=== PATIENT | female | born 1965 | race Caucasian/White ===

== ENCOUNTER 2023-02-13 11:41 | Outpatient (OUT) | payer MEDICARE, MEDICAID, SELFPAY ==
[2023-02-13 12:07] LABS: Basophils Percent Auto 0.3 % (0.2-2.0); Eosinophils Absolute Auto 0.1 10^3/uL (0.0-0.7); Eosinophils Percent Auto 1.5 % (0.9-7.0); Hematocrit 45.5 % (36.0-48.0); Hemoglobin 14.8 g/dL (12.0-16.0); Immature Granulocytes Abs Auto 0.05 10^3/uL (0.00-0.03); Immature Granulocytes Pct Auto 0.5 % (0.0-0.5); Lymphocytes Absolute Auto 1.5 10^3/uL (1.2-3.8); Lymphocytes Percent Auto 16.1 % (20.5-60.0); Mean Corpuscular HGB Conc 32.5 g/dL (29.9-35.2); Mean Corpuscular Hemoglobin 28.9 pg (26.7-34.0); Mean Corpuscular Volume 88.9 fL (81.0-99.0); Mean Platelet Volume 9.7 fL (9.5-13.5); Monocytes Absolute Auto 0.6 10^3/uL (0.3-0.8); Monocytes Percent Auto 6.7 % (1.7-12.0); Neutrophils Absolute Auto 7.1 10^3/uL (1.4-6.5); Neutrophils Percent Auto 74.9 % (43.0-75.0); Platelet Count 284 10^3/uL (150-450); Red Blood Count 5.12 10^6/uL (4.20-5.40); Red Cell Distribution Width 14.4 % (11.0-15.0); White Blood Count 9.4 10^3/uL (4.0-11.0)
[2023-02-13 12:37] LABS: Erythrocyte Sedimentation Rate 67 mm/hr (<=30)
[2023-02-13 12:37] LABS: Alanine Aminotransferase 21 U/L (14-59); Albumin Globulin Ratio 0.7; Albumin Level 2.9 g/dL (3.4-5.0); Alkaline Phosphatase 75 U/L (46-116); Anion Gap 9.8; Aspartate Amino Transferase 19 U/L (15-37); BUN Creatinine Ratio 21.3; Bilirubin Total 0.2 mg/dL (0.2-1.0); Calcium 9.4 mg/dL (8.5-10.1); Carbon Dioxide 30.4 mmol/L (21.0-32.0); Chloride 102 mmol/L (98-107); Estimated GFR (African America >60 (>=60); Estimated GFR (Non-African Ame >60 (>=60); Globulin 4.4 g/dL; Glucose 145 mg/dL (74-106); Potassium 4.2 mmol/L (3.5-5.1); Sodium 138 mmol/L (136-145); Total Protein 7.3 g/dL (6.4-8.2)
== END 2023-02-13 11:42 | disposition home or self-care (01) ==
LOC: LAB 11:41
PROVIDERS: PCP Family Medicine
DX: M05.79 Rheumatoid arthritis with rheumatoid factor of multiple sites without organ or systems involvement (principal); M15.0 Primary generalized (osteo)arthritis; Z79.899 Other long term (current) drug therapy
CPT/HCPCS: 36415; 80053; 85025; 85652

== ENCOUNTER 2023-02-15 13:55 | Outpatient (OUT) | payer MEDICARE, MEDICAID, SELFPAY | END 2023-02-15 13:56 | disposition home or self-care (01) | LOC: WC 13:55 | PROVIDERS: PCP Family Medicine; Visit Provider Physician Assistant | DX: L97.312 Non-pressure chronic ulcer of right ankle with fat layer exposed (principal); L97.822 Non-pressure chronic ulcer of other part of left lower leg with fat layer exposed; L88 Pyoderma gangrenosum | CPT/HCPCS: A6213; G0463 ==

== ENCOUNTER 2023-03-12 15:20 | Outpatient (OUT) | payer MEDICARE, MEDICAID, SELFPAY | END 2023-03-12 15:21 | disposition home or self-care (01) | LOC: WC 15:20 | PROVIDERS: PCP Family Medicine; Visit Provider Physician Assistant | DX: L97.312 Non-pressure chronic ulcer of right ankle with fat layer exposed (principal) | CPT/HCPCS: A6213; G0463 ==

== ENCOUNTER 2023-06-04 15:13 | Outpatient (OUT) | payer MEDICARE, MEDICAID, SELFPAY ==
--- NOTE | 2023-06-04 15:16 | CT_ITS ---
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 TECHNIQUE: Multi-planar CT images were obtained without and/or with IV contrast as indicated by examination type. Axial, Coronal, and Sagittal images. Dose reduction techniques were achieved by using automated exposure control and/or adjustment of mA and/or kV according to patient size and/or use of iterative reconstruction technique. FINDINGS: LUNGS: Regular, thick-walled, spiculated cavitary lesion within posterior medial right lung base approximately 3.0 x 1.9 cm and extending 7.2 cm cephalad caudad. Spiculated cavitary lesion with surrounding soft tissue stranding within posterior lateral left lung base approximately 6.1 x 3.9 x 5.2 cm. PLEURA: No mass, effusion, or pneumothorax. VASCULATURE: No abnormality. SIS: No mass or adenopathy. MEDIASTINUM: No mass or adenopathy. CARDIAC: Atherosclerotic coronary artery disease. No pericardial effusion. AORTA: No aneurysm or dissection. CHEST WALL: No mass or axillary adenopathy. BONES: No bone lesion or fracture. LIMITED ABDOMEN: No suspicious findings Limited images of the upper abdomen. OTHER: Negative. CT/CT chest wo con IMPRESSION: 1. Nonspecific thick-walled cavitary lesions with surrounding stranding within posterior medial lung bases favoring infectious/inflammatory etiology over neoplasm. No prior studies for comparison. Consider treatment and follow-up CT chest with IV contrast in 1 month to document change versus stability. Electronically authenticated by: MERYL RUBY Date: 06/05/2023 08:00
== END 2023-06-04 15:14 | disposition home or self-care (01) ==
LOC: CT 15:13
PROVIDERS: Visit Provider Internal Medicine
DX: M05.10 Rheumatoid lung disease with rheumatoid arthritis of unspecified site (principal); M05.79 Rheumatoid arthritis with rheumatoid factor of multiple sites without organ or systems involvement; M15.0 Primary generalized (osteo)arthritis; Z79.899 Other long term (current) drug therapy
CPT/HCPCS: 71250

== ENCOUNTER 2023-06-28 12:13 | Outpatient (OUT) | payer MEDICARE, MEDICAID, SELFPAY ==
[2023-06-28 12:47] LABS: Basophils Percent Auto 0.3 % (0.2-2.0); Eosinophils Absolute Auto 0.1 10^3/uL (0.0-0.7); Eosinophils Percent Auto 1.1 % (0.9-7.0); Hematocrit 45.5 % (36.0-48.0); Hemoglobin 14.3 g/dL (12.0-16.0); Immature Granulocytes Abs Auto 0.07 10^3/uL (0.00-0.03); Immature Granulocytes Pct Auto 0.6 % (0.0-0.5); Lymphocytes Absolute Auto 1.8 10^3/uL (1.2-3.8); Lymphocytes Percent Auto 15.9 % (20.5-60.0); Mean Corpuscular HGB Conc 31.4 g/dL (29.9-35.2); Mean Corpuscular Hemoglobin 28.3 pg (26.7-34.0); Mean Corpuscular Volume 90.1 fL (81.0-99.0); Mean Platelet Volume 9.8 fL (9.5-13.5); Monocytes Absolute Auto 0.6 10^3/uL (0.3-0.8); Monocytes Percent Auto 5.3 % (1.7-12.0); Neutrophils Absolute Auto 8.8 10^3/uL (1.4-6.5); Neutrophils Percent Auto 76.8 % (43.0-75.0); Platelet Count 333 10^3/uL (150-450); Red Blood Count 5.05 10^6/uL (4.20-5.40); Red Cell Distribution Width 14.4 % (11.0-15.0); White Blood Count 11.5 10^3/uL (4.0-11.0)
[2023-06-28 12:53] LABS: Alanine Aminotransferase 22 U/L (14-59); Albumin Globulin Ratio 0.6; Albumin Level 2.9 g/dL (3.4-5.0); Alkaline Phosphatase 66 U/L (46-116); Aspartate Amino Transferase 11 U/L (15-37); BUN Creatinine Ratio 25.6; Bilirubin Total 0.2 mg/dL (0.2-1.0); Calcium 9.2 mg/dL (8.5-10.1); Carbon Dioxide 36.1 mmol/L (21.0-32.0); Chloride 99 mmol/L (98-107); Estimated GFR (African America >60 (>=60); Estimated GFR (Non-African Ame >60 (>=60); Globulin 4.5 g/dL; Glucose 155 mg/dL (74-106); Potassium 4.1 mmol/L (3.5-5.1); Sodium 137 mmol/L (136-145); Total Protein 7.4 g/dL (6.4-8.2); Uric Acid 5.5 mg/dL (2.6-6.0)
[2023-06-28 13:41] LABS: Erythrocyte Sedimentation Rate 92 mm/hr (<=30)
== END 2023-06-28 12:14 | disposition home or self-care (01) ==
LOC: LAB 12:13
PROVIDERS: PCP Family Medicine; Visit Provider Registered Nurse
DX: M05.79 Rheumatoid arthritis with rheumatoid factor of multiple sites without organ or systems involvement (principal); M15.0 Primary generalized (osteo)arthritis; Z79.899 Other long term (current) drug therapy; M10.09 Idiopathic gout, multiple sites
CPT/HCPCS: 36415; 80053; 84550; 85025; 85652

== ENCOUNTER 2023-07-12 09:05 | Outpatient (OUT) | payer MEDICARE, MEDICAID, SELFPAY ==
--- OUTSIDE RECORDS SUMMARY | 2023-07-12 09:11 | XMS_ITS | CCD ---
Author Name Unknown Address [address] [place] [address] Organization [facility] Care Team Providers Care Lining Sewer Name Role Phone [place] Procedure Practitioner Unavailab JEREMIAS Everett Primary Care Unavailable JOVANI GOLD Surgeon Unavailable TED VALDIVIA Attending Unavailable TED VALDIVIA Admitting Unavailable SELF, REFERRED Referring Unavailable Jeremias DAVISON Primary Care Physician [phone] Albin Bruno Unavailable MD Shay Baldwin Primary Care Provider [phone] MD Shay Baldwin Attending Provider DR JEREMIAS DAVISON Primary Care Unavailable SUNSHINE BRYSON Attending Unavailable SUNSHINE BRYSON Admitting Unavailable SAMAN, DR JEREMIAS Moralez Primary Care Unavailable SUNSHINE BRYSON Attending Unavailable SUNSHINE BRYSON Admitting Unavailable SAMAN, DR JEREMIAS Moralez Primary Care Unavailable SUNSHINE BRYSON Attending Unavailable SUNSHINE BRYSON Admitting Unavailable SAMAN, DR JEREMIAS Moralez Primary Care Unavailable PEPE RUBIO Attending Unavaila PEPE Vidal Admitting Unavaila dinah DAVISON, DR JEREMIAS Moralez Primary Care Unavailable SUNSHINE BRYSON Attending Unavailable SUNSHINE BRYSON Admitting Unavailable SAMAN, DR JEREMIAS Moralez Primary Care Unavailable SUNSHINE BRYSON Attending Unavailable SUNSHINE BRYSON Admitting Unavailable SAMAN, DR JEREMIAS Moralez Primary Care Unavailable SUNSHINE BRYSON Attending Unavailable KAREN, SUNSHINE Vidal Admitting Unavailable SAMAN, DR JEREMIAS Moralez Primary Care Unavailable PRAVIN HODGES Attending Unavailable PRAVIN HODGES Admitting Unavailable SAMAN, DR JEREMIAS Moralez Primary Care Unavailable SUNSHINE BRYSON Attending Unavailable SUNSHINE BRYSON Admitting Unavailable MISC, DR ALVAREZ Consulting Unavailable SAMAN, DR JEREMIAS Moralez Primary Care Unavailable HAL, DR PERLA Attending Unavailable HAL, DR PERLA Admitting Unavailable SAMAN, DR JEREMIAS Moralez Primary Care Unavailable LETI, NEEL Attending Unavailable NEEL YADAV Admitting Unavailable SAMAN, DR JEREMIAS Moralez Primary Care Unavailable KAREN, SUNSHINE Vidal Attending Unavailable HIGHLERNIE, SUNSHINE Vidal Admitting Unavailable SAMAN, DR JEREMIAS Moralez Primary Care Unavailable HIGHLERNIE, SUNSHINE Vidal Attending Unavailable HIGHLERNIE, SUNSHINE Vidal Admitting Unavailable SAMAN, DR JEREMIAS Moralez Primary Care Unavailable HIGHLANDER, SUNSHINE Vidal Attending Unavailable HIGHLANDER, SUNSHINE Vidal Admitting Unavailable SAMAN, Jeremias Moralez Attending Unavailable Preethi, Ann Worrell Attending Unavailable Preethi, Ann Worrell Attending Unavailable SAMAN, Jeremias Moralez Admitting Unavailable SAMAN, Jeremias Moralez Attending Unavailable Allergies Allergy Classification Reported Allergen(s) Allergy Type Date of Onset Reaction(s) Facility (5 sources) Amoxicillin / Clavulanate; Translations: [AUGMENTIN] Drug Allergy 09-05-19 19 Illness (finding) [facility] Repository (4 sources) Calcium Channel Blockers; Translations: [calcium channel blockers] Drug allergy (disorder) 05-27-20 18 tachycardia [facility] Repository (4 sources) Contrast media; Translations: [red dye] Food allergy (disorder) 01-20-20 17 insomnia [facility] Repository (1 source) dilTIAZem; Translations: [DILTIAZEM HCL] Drug Allergy 09-12-19 19 [facility] Repository (4 sources) Latex; Translations: [LATEX] Propensity to adverse reactions (disorder) 05-31-20 17 Unknown [facility] Repository (4 sources) Sulfamethoxazole / Trimethoprim; Translations: [Bactrim] Drug Allergy 05-08-20 18 [facility] Repository (4 sources) Vancomycin; Translations: [vancomycin] Drug Allergy 05-08-20 18 [facility] Repository (4 sources) Sulfamethoxazole / Trimethoprim; Translations: [sulfamethoxazole-t rimethoprim] Drug Allergy bloody stool, Unknown [facility] Other (4 sources) Vancomycin; Translations: [vancomycin] Drug Allergy itching, Unknown [facility] Other (2 sources) Amoxicillin / Clavulanate Drug Allergy Unknown [facility] Other (2 sources) Ciprofloxacin Drug Allergy Unknown [facility] Other (3 sources) Codeine; Translations: [codeine] Drug Allergy Unknown [facility] Repository (2 sources) levoFLOXacin Drug Allergy Unknown [employer] [facility] [employer] Other (2 sources) Calcium Channel Antagonists Drug allergy Unknown [facility] Other (2 sources) cefdinir Drug Allergy 08-21-19 22 [facility] Repository (2 sources) Ciprofloxacin Drug Allergy [facility] Repository (1 source) Codeine Drug Allergy 04-07-20 14 [facility] Repository (2 sources) levoFLOXacin Drug Allergy [facility] Repository (2 sources) Calcium Channel Blocking Agents-Benzothiazep gertrudis Drug allergy (disorder) 02-23-20 16 [facility] Repository Medications Current Medications Medication Drug Class(es) Dates Sig (Normalized) Sig (Original) amitriptyline hydrochloride 50 mg oral tablet (1 source) Tricyclic Antidepressant Start: 01-10-2022 take 1 tablet by mouth once daily at bedtime amitriptyline 50 mg Tab 50 mg = 1 tab(s), Oral, Once a day (at bedtime), # 30 tab(s), Refills(s) 3, Pharmacy: [facility]/pharmacy #[id number], 160, cm, 07/31/20 7:46:00 EST, Height/Length Dosing, 145, kg, 07/31/20 7:46:00 EST, Weight Dosing Start Date: 01/10/22 Status: Ordered atenolol 50 mg oral tablet (4 sources) beta-Adrenergic Elliott Start: 11-28-2021 take 1 tablet by mouth once daily atenolol 50 mg Tab 50 mg, Oral, Daily, # 90 tab(s), Refills(s) 0, Pharmacy: [facility]/pharmacy #[id number], 160, cm, 07/31/20 7:46:00 EST, Height/Length Dosing, 145, kg, 07/31/20 7:46:00 EST, Weight Dosing Start Date: 11/28/21 Status: Ordered take 0.5 tablet by mouth once da nicholas Atenolol 25 MG 1/2 tablet Orally Once a day Active cefTRIAXone 1000 mg injection (2 sources) Cephalosporin Antibacterial Start: 08-23-2021 cefTRIAXone Sodium 1 GM as directed Intravenous daily for 21 days Aug, Active cephalexin 500 mg oral capsule (1 source) Cephalosporin Antibacterial Start: 11-29-2020 take 1 capsule by mouth every twelve hours cephalexin 500 mg Cap 500 mg = 1 cap(s), Oral, q12hr, # 20 cap(s), Refills(s) 0, Pharmacy: [facility]/pharmacy #[id number], 160, cm, 07/31/20 7:46:00 EST, Height/Length Dosing, 145, kg, 07/31/20 7:46:00 EST, Weight Dosing Start Date: 11/29/20 Status: Ordered Colace (3 sources) Start: 01-10-2022 Colace Oral, B ID, Refills(s) 0 Start Date: 01/10/22 Status: Ordered take 1 capsule by [facility] every twenty-four hours Colace 100 MG 1 capsule as needed Orally Once a day Active doxycycline hyclate 100 mg oral capsule (1 source) Tetracycline-class Drug Start: 04-07-2021 take 1 capsule by mouth twice daily doxycycline hyclate 100 mg Cap 100 mg = 1 cap(s), Oral, BID, # 20 cap(s), Refills(s) 0, Pharmacy: [facility]/pharmacy #[id number], 160, cm, 07/31/20 7:46:00 EST, Height/Length Dosing, 145, kg, 07/31/20 7:46:00 EST, Weight Dosing Start Date: 04/07/21 Status: Ordered folic acid 1 mg oral tablet (1 source) Start: 01-10-2022 take 1 tablet by mouth once daily Folate 1 mg Tab TAKE 1 TABLET BY MOUTH EVERY DAY Start Date: 01/10/22 Status: Ordered gabapentin 300 mg oral capsule (2 sources) Anti-epileptic Agent take 1 capsule by mouth every twelve hours Gabapentin 300 MG 1 capsule Orally twice a day Active hydroCHLOROthiazide 25 mg / triamterene 37.5 mg oral tablet (2 sources) Potassium-sparing Diuretic, Thiazide Diuretic Start: 12-23-2021 take 1 tablet by mouth once daily hydrochlorothiaz jim-triamterene 25 mg-37.5 mg Tab 1 tab(s), Oral, Daily, 30 tab(s), Refill(s) 5, [facility]/pharmacy #[id number], 160, cm, 07/31/20 7:46:00 EST, Height/Length Dosing, 145, kg, 07/31/20 7:46:00 EST, Weight Dosing Start Date: 12/23/21 Status: Ordered hydrOXYzine hydrochloride 25 mg oral tablet (2 sources) Antihistamine Start: 07-01-2021 take 1 tablet by mouth four times daily as needed for anxiety hydrOXYzine hydrochloride 25 mg Tab 25 mg = 1 tab(s), Oral, QID, PRN for anxiety, # 40 tab(s), Refills(s) 2, Pharmacy: [facility]/pharmacy #[id number], 160, cm, 07/31/20 7:46:00 EST, Height/Length Dosing, 145, kg, 07/31/20 7:46:00 EST, Weight Dosing Start Date: 07/01/21 Status: Ordered meloxicam 10 mg oral capsule (4 sources) Nonsteroidal Anti-inflammatory Drug Start: 07-20-2020 take 1 mg by mouth once daily meloxicam 10 mg oral capsule mg cap(s), Oral, Daily, Refills(s) 0 Start Date: 07/20/20 Status: Ordered take 4 capsules by m outh every twenty-four hours Meloxicam 10 MG 4 capsule Orally Once a day Active methotrexate 2.5 mg oral tablet (1 source) Folate Analog Metabolic Inhibitor Start: 01-10-2022 take 4 tablets by mouth every week Trexall 2.5 mg Tab TAKE 4 TABLETS BY MOUTH EVERY WEEK Start Date: 01/10/22 Status: Ordered Multivitamin preparation (2 sources) take 1 tablet by mouth once daily Multivitamin - 1 tablet Orally Once a day Active multivitamin with minerals (1 source) Start: 01-10-2022 multivitamin w ith minerals Refill(s) 0 Start Date: 01/10/22 Status: Ordered oxyCODONE hydrochloride 5 mg oral tablet (2 sources) Opioid Agonist take 1 tablet by mouth every six hours oxyCODONE HCl 5 MG 1 tablet as needed Orally every 6 hrs Active predniSONE 5 mg oral tablet (1 source) Start: 01-10-2022 take 3 tablets by mouth once daily predniSONE 5 mg Tab 15 mg = 3 tab(s), Oral, Daily, # 30 tab(s), Refills(s) 0 Start Date: 01/10/22 Status: Ordered traMADol hydrochloride 50 mg oral tablet (1 source) Opioid Agonist Start: 01-10-2022 take 1 tablet by mouth twice daily as needed tramadol 50 mg oral tablet TAKE 1 TABLET BY MOUTH TWICE A DAY NEEDED Start Date: 01/10/22 Status: Ordered traZODone hydrochloride 100 mg oral tablet (4 sources) Serotonin Reuptake Inhibitor Start: 11-11-2021 take 0.5 tablet by mouth once daily at bedtime traZODONE 100 mg Tab 0.5 tab, Oral, Once a day (at bedtime), # 45 EA, Refills(s) 1, Pharmacy: [facility]/pharmacy #[id number], 160, cm, 07/31/20 7:46:00 EST, Height/Length Dosing, 145, kg, 07/31/20 7:46:00 EST, Weight Dosing Start Date: 11/11/21 Status: Ordered Start: 11-11-2021 take 1 tablet by hong th once daily at bedtime traZODONE 100 mg Tab 100 mg = 1 tab(s), Oral, Once a day (at bedtime), # 90 tab(s), Refills(s) 1, Pharmacy: [facility]/pharmacy #[id number], 160, cm, 07/31/20 7:46:00 EST, Height/Length Dosing, 145, kg, 07/31/20 7:46:00 EST, Weight Dosing Start Date: 11/11/21 Status: Ordered traZODone HCl Ac tive Triamterene (2 sources) Potassium-sparing Diuretic Triam terene Active Problems Active Problems Problem Classification Problem Date Documented Da te Episodic/Chronic Abdominal pain (2 sources) Abdominal pain 09-21-2021 Episodic Anxiety disorders (2 sources) Generalized anxiety disorder 12-09-2019 Chronic Chronic ulcer of skin (12 sources) Non-pressure chronic ulcer of right ankle with fat layer exposed; Translations: [Non-pressure chronic ulcer of other part of right foot limited to breakdown of skin] Onset: 02-17-2022 Chronic Diverticulosis and diverticulitis (3 sources) Diverticulitis; Translations: [Diverticulitis of intestine, part unspecified, with perforation and abscess without bleeding] Onset: 09-21-2022 02-26-2017 Chronic Essential hypertension (4 sources) Hypertensive disorder 02-26-2017 Chronic Headache; including migraine (2 sources) Headache 07-20-2020 Episodic Nausea and vomiting (2 sources) Nausea 07-20-2020 Episodic Open wounds of head; neck; and trunk (2 sources) Wound discharge 12-09-2019 Episodic Osteoarthritis (2 sources) Unilateral primary osteoarthritis, unspecified knee; Translations: [Primary generalized (osteo)arthritis] Onset: 08-20-2022 Chronic Other circulatory disease (5 sources) Other specified peripheral vascular diseases; Translations: [OTH SPEC PERIPHERAL VASC DISEASES] Onset: 04-17-2022 Chronic Other diseases of veins and lymphatics (1 source) Venous insufficiency (chronic) (peripheral); Translations: [VENOUS INSUFF CHRONIC PERIPHERAL] Onset: 09-21-2022 Episodic Other gastrointestinal disorders (2 sources) Irritable bowel syndrome 02-26-2017 Chronic Other gastrointestinal disorders (2 sources) Constipation 09-21-2021 Episodic Other non-traumatic joint disorders (1 source) Other specified arthritis, unspecified site; Translations: [OTHER SPECIFIED ARTHRITIS UNS SITE] Onset: 07-31-2022 Chronic Other nutritional; endocrine; and metabolic disorders (2 sources) Morbid obesity 12-26-2021 Chronic Comment on above: Added per Dr. Davison 12/23/2021 query response. Other nutritional; endocrine; and metabolic disorders (1 source) Obesity, unspecified; Translations: [OBESITY UNSPECIFIED] Onset: 09-21-2022 Chronic Residual codes; unclassified (2 sources) Generalized aches and pains 07-20-2020 Episodic Residual codes; unclassified (1 source) Localized edema; Translations: [LOCALIZED EDEMA] Onset: 09-21-2022 Episodic Rheumatoid arthritis and related disease (7 sources) Rheumatoid lung disease; Translations: [Rheumatoid arthritis, unspecified] Onset: 08-17-2022 12-09-2019 Chronic Skin and subcutaneous tissue infections (5 sources) Pyoderma gangrenosum; Translations: [PYODERMA GANGRENOSUM] Onset: 08-14-2022 Episodic Past or Other Problems Problem Classification Problem Date Documented Da te Episodic/Chronic Open wounds of extremities (1 source) Unspecified open wound, left lower leg, initial encounter Onset: 09-01-2021 Resolved: 09-01-2021 Episodic Other aftercare (1 source) 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 Onset: 09-01-2021 Resolved: 09-01-2021 Episodic Other aftercare (1 source) Other mcfp (current) drug therapy; Translations: [OTH LAP LAYER CURRENT DRUG THERAPY] Onset: 08-20-2022 Episodic Superficial injury; contusion (1 source) Blister (nonthermal), right lower leg, initial encounter; Translations: [BLISTER NONTHERMAL RT LOW LEG INIT] Onset: 02-17-2022 Episodic Results Test Name Value Interpretation Reference Range Facility RAD - CT Reporton 06-12-2023 RAD - CT Report [id number]# 1.00TIFF Normal [facility] Family Medicine Office/Clini c Noteon 05-31-2023 Family Medicine Office/Clinic Note HPI Staff Jarett is a 57 year old female presenting to establish care Establish Care: History: Any previous diagnosis: HTN, rheumatoid lung disease History of seeing any specialist: Dr Baldwin(Rheum) and Dr Yadav(Wound) When was your last doctors visit: Last provider: Dr Davison Any recent labs: 11/29/22 Health Maintenance UTD: Colonoscopy: 2017 Mammogram: Due Pelvic/Pap: No not in some time, full hysterectomy. Denied flu, said she has to discuss with Dr Baldwin. Acute: Refills on hydroxyzine. Current issues/complaints: Pt is not being treated after trouble with Enbril, said she had GI issues, now is only on prednisone. History of Present Illness pt presents today to establish care, needs mammogram order Review of Systems PHQ Score Initial Depression Screen Score: 3 SCORE ROS - Provider Constitutional: no fever, no chills, no sweats, no fatigue Respiratory: no shortness of breath, no cough, no orthopnea, no wheezing. Cardiovascular: no chest pain, no palpitations, no edema. Neurologic: no headache, no dizziness, no numbness, no weakness. Physical Exam Vitals & Measurements HR: 78(Peripheral) RR: 16 BP: 136/88 SpO2: 98% HT: 62 in HT: 157 cm General: alert, no acute distress ENMT: oral mucosa moist, no pharyngeal erythema or exudate Cardiovascular: regular rate and rhythm, normal peripheral perfusion Respiratory: Lungs CTA, respirations non labored Extremities: no deformity, no trauma Neurological: oriented x 4, LOC appropriate for age, CN II-XII intact, motor strength equal & normal bilaterally, speech normal Assessment/Plan 1. Hypertension (I10: Essential (primary) hypertension) BP at goal will send refills as needed. all questions answered. pt following rheum for pain. needs hydroxizine refilled. all questions answered. RTC as needed 2. Breast cancer screening by mammogram (Z12.31: Encounter for screening mammogram for malignant neoplasm of breast) mammogram order provided Orders: hydrOXYzine, 25 mg = 1 cap(s), Oral, QID, PRN for anxiety, # 40 cap(s), Refills(s) 2, Pharmacy: [facility]/pharmacy #[id number], 157, cm, 05/30/23 17:31:00 EST, Height/Length Dosing hydrOXYzine, 25 mg = 1 cap(s), Oral, QID, PRN for anxiety, # 40 cap(s), Refills(s) 2, Pharmacy: [facility]/pharmacy #[id number], 160.6, cm, 11/29/22 14:47:00 EDT, Height/Length Dosing Follow-up No qualifying data available Problem List/Past Medical History Ongoing Breast cancer screening by mammogram Dyskinesia of gallbladder Generalized anxiety disorder Hypertension Morbid obesity Pruritic condition 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 Medications atenolol 50 mg Tab, 50 mg, Oral, Daily, 1 refills hydrochlorothiazide- triamterene 25 mg-37.5 mg Tab, 1 tab(s), Oral, Daily, 3 refills hydrOXYzine pamoate 25 mg Cap, 25 mg= 1 cap(s), Oral, QID, PRN, 2 refills multivitamin with minerals predniSONE 5 mg Tab, 15 mg= 3 tab(s), Oral, Daily tramadol 50 mg oral tablet traZODONE 100 mg Tab, 0.5 tab, Oral, Once a day (at bedtime), 3 refills Allergies Augmentin (Sickness) Bactrim (bloody stool) Red Dye (insomnia) calcium channel blockers (tachycardia) vancomycin (itching) Social History Alcohol - Denies Alcohol Use, 02/19/2018 Substance Abuse - Denies Substance Abuse, 02/19/2018 Tobacco - Denies Tobacco Use, 02/19/2018 Former smoker, quit more than 30 days ago Tobacco Use:. Never Smokeless Tobacco Use:. Started age 15.0 Years. Stopped age 37 Years., 05/30/2023 Family History CVA: Father. Cancer: Mother. Diabetes mellitus type 1: Mother and Brother. Hyperlipidemia: Father and Brother. Hypertension: Mother and Father. Primary malignant neoplasm of female genital organ: Mother. Stroke: Father. [facility] Comment on above: Result Comment: Elec tronically Signed By: Ann Glasgow\.br\Date and Time Signed: 05/31/23 15:38 EST [employer] 05-31-2023 Forms [id number]# 1.00TIFF [facility] Consultation Noteon 12-09-19 Consultation Note [id number] #1.00CD:127 [facility] Consultation Note [id number] #1.00CD:127 [facility] RAD - CT Reporton 12-08-2022 RAD - CT Report [id number] #1.00CD:127 [facility] RAD - Ultrasound Reporton RAD - Ultrasound Report [id number] #1.00CD:127 [facility] Consultation Noteon 12-07-19 Consultation Note [id number] #1.00CD:127 [facility] RAD - CT Reporton 12-06-2022 RAD - CT Report [id number] #1.00CD:127 [facility] RAD - MISCon 12-06-2022 RAD - MISC [id number] #1.00CD:127 Normal [facility] RAD - Ultrasound Reporton RAD - Ultrasound Report [id number] #1.00CD:127 Normal [facility] Provider Letteron 12-04-2022 Provider Letter December 04, 2022 JARETT KEBEDE [address] [place] [id number] : 1965 To Whom It May Concern, Please excuse above patient from work. Date of Illness: From: _ 12/02/2022 To: _ 12/04/2022 May Return to Work On: 12/05/2022 Restrictions: _ Comments: _ Sincerely, Dr. Jeremias Davison, [address] [place] [address] [facility] Physician Referralon 023 Physician Referral [id number]#1.00CD:127 [facility] Reminderson 12-01-2022 Reminders - From: Jeremias DAVISON DO To: [facility] - Clinical; Sent: 11/30/2022 21:26:03 EDT Show up: 11/30/2022 21:26:00 EDT Subject: Ambulatory Reminder Due Date/Time: 12/01/2022 21:25:00 EDT labs look ok Results: Date Result Name Ind Value Ref Range 11/29/2022 18:08 WBC 10.6 E9/L (4.0 - 11.0) 11/29/2022 18:08 RBC 5.1 E12/L (4.3 - 5.9) 11/29/2022 18:08 HGB 14.8 gm/dL (12.0 - 16.0) 11/29/2022 18:08 Hct 45.9 % (34.0 - 46.0) 11/29/2022 18:08 MCV 90.7 fL (80.0 - 100.0) 11/29/2022 18:08 MCH 29.3 pg (27.0 - 34.0) 11/29/2022 18:08 MCHC 32.3 gm/dL (31.4 - 36.0) 11/29/2022 18:08 RDW ((H)) 15.1 % (10.9 - 14.2) 11/29/2022 18:08 Platelet 269.0 E9/L (150.0 - 500.0) 11/29/2022 18:08 MPV 9.4 fL (6.4 - 10.8) 11/29/2022 18:08 Neutro Auto ((H)) 78.9 % (36.0 - 75.0) 11/29/2022 18:08 Lymph Auto 14.2 % (14.0 - 50.0) 11/29/2022 18:08 [place] Auto 5.8 % (4.0 - 14.0) 11/29/2022 18:08 Eos Auto 0.7 % (0.0 - 8.0) 11/29/2022 18:08 Basophil Auto 0.4 % (0.0 - 2.0) 11/29/2022 18:08 Neutro Absolute ((H)) 8.3 E9/L (2.0 - 7.5) 11/29/2022 18:08 Lymph Absolute 1.5 E9/L (1.0 - 4.0) 11/29/2022 18:08 [place]ord Absolute 0.6 E9/L (0.2 - 1.0) 11/29/2022 18:08 Eos Absolute 0.1 E9/L (0.0 - 0.5) 11/29/2022 18:08 Basophil Absolute 0.0 E9/L (0.0 - 0.2) 11/29/2022 18:08 Glucose Lvl 123 mg/dL (55 - 199) 11/29/2022 18:08 BUN 20 mg/dL (5 - 21) 11/29/2022 18:08 Creatinine 0.8 mg/dL (0.5 - 1.3) 11/29/2022 18:08 eGFR 85 mL/min/1.73 m2 (>=59 - ) 11/29/2022 18:08 BUN/Creat Ratio ((H)) 25 (10 - 20) 11/29/2022 18:08 Sodium Lvl 141 mmol/L (135 - 145) 11/29/2022 18:08 Potassium Lvl 3.9 mmol/L (3.5 - 5.3) 11/29/2022 18:08 Chloride ((L)) 100 mmol/L (101 - 111) 11/29/2022 18:08 CO2 30 mmol/L (21 - 31) 11/29/2022 18:08 AGAP 15 mEq/L (6 - 16) 11/29/2022 18:08 Calcium Lvl 9.1 mg/dL (8.9 - 11.1) 11/29/2022 18:08 Alk Phos 70 Int._Unit/L (21 - 98) 11/29/2022 18:08 ALT 19 Int._Unit/L (6 - 46) 11/29/2022 18:08 AST 15 Int._Unit/L (5 - 43) 11/29/2022 18:08 Total Protein 6.7 gm/dL (6.0 - 7.8) 11/29/2022 18:08 Albumin Lvl ((L)) 3.2 gm/dL (3.3 - 5.0) 11/29/2022 18:08 Globulin 3.5 gm/dL (1.4 - 4.0) 11/29/2022 18:08 A/G Ratio ((L)) 0.9 (1.1 - 2.2) 11/29/2022 18:08 Bili Total 0.3 mg/dL (0.0 - 1.1) 11/29/2022 18:08 CRP 1.6 mg/dL ( - <=1.9) LM notifying pt. Encouraged her to CB with any questions. Thank you Normal [facility] Auto Diffon 11-30-2022 Basophils/100 WBC (Bld) 0.4 % Normal 0.0-2.0 [facility] Comment on above: Order Comment: Order Added by Discern Expert. Performed By: #### 2 [id number] ####[facility] [id number] [place] [address] Basophils/Leukocytes Auto (Bld) [Pure # fraction] 0.0 E9/L Normal 0.0-0.2 [facility] Comment on above: Order Comment: Order Added by Discern Expert. Performed By: #### 2 [id number] ####[address] [address] Eosinophils/100 WBC (Bld) 0.7 % Normal 0.0-8.0 [facility] Comment on above: Order Comment: Order Added by Discern Expert. Performed By: #### 2 [id number] ####[address] [address] Eosinophils/Leukocytes Auto (Bld) [Pure # fraction] 0.1 E9/L Normal 0.0-0.5 [facility] Comment on above: Order Comment: Order Added by Alvina Expert. Performed By: #### 2 [id number] ####[address] [address] Lymphocytes/100 WBC (Bld) 14.2 % Normal 14.0-50.0 [facility] Comment on above: Order Comment: Order Added by Alvina Expert. Performed By: #### 2 [id number], [id number] ####[address] [address] Lymphocytes/Leukocytes Auto (Bld) [Pure # fraction] 1.5 E9/L Normal 1.0-4.0 [facility] Comment on above: Order Comment: Order Added by Alvina Expert. Performed By: #### 2 [id number] ####[address] [address] Monocytes/100 WBC (Bld) 5.8 % Normal 4.0-14.0 [facility] [facility] Comment on above: Order Comment: Order Added by Alvina Expert. Performed By: #### 2 262146, 7676250, 3016789, 8420723, [id number] ####[address] [place] [address] Monocytes/Leukocytes Auto (Bld) [Pure # fraction] 0.6 E9/L Normal 0.2-1.0 [facility] Comment on above: Order Comment: Order Added by Discern Expert. Performed By: #### 2 666064, 5947081, 8546833, 8167202, 23551740 ####[address] [address] Neutrophils/100 WBC (Bld) 78.9 % High 36.0-75.0 [facility] Comment on above: Order Comment: Order Added by Discern Expert. Performed By: #### 2 000027, 9750916, 7992090, 0887759, 08901909 ####[address] [address] Neutrophils/Leukocytes Auto (Bld) [Pure # fraction] 8.3 E9/L High 2.0-7.5 [facility] Comment on above: Order Comment: Order Added by Discern Expert. Performed By: #### 2 251916, 3250782, 4878741, 0245269, 80158568 ####[address] [address] CBC w/ Auto Diffon Erythrocyte distribution width (RBC) [Ratio] 15.1 % High 10.9-14.2 [facility] Comment on above: Performed By: #### 2 463628, 0005995, 0086880, 9182655, 57305560 ####[address] [address] Hematocrit (Bld) [Volume fraction] 45.9 % Normal 34.0-46.0 [facility] Comment on above: Performed By: #### 2 475555, 6827718, 0050706, 2289594, 10940884 ####[address] [address] Hemoglobin (Bld) [Mass/Vol] 14.8 g/dL Normal 12.0-16.0 [facility] Comment on above: Performed By: #### 2 120831, 0150277, 3906527, 4506246, 65553550 ####[address] [address] MCH (RBC) [Entitic mass] 29.3 pg Normal 27.0-34.0 [facility] Comment on above: Performed By: #### 2 452305, 7380298, 4032784, 6612737, 13262052 ####[address] [address] MCHC (RBC) [Mass/Vol] 32.3 g/dL Normal 31.4-36.[address] [facility] Comment on above: Performed By: #### 2 696984, 1836657, 0662314, 3650808, 85543372 ####[address] MCV (RBC) [Entitic vol] 90.7 fL Normal 80.0-100.0 [facility] Comment on above: Performed By: #### 2 973827, 9263793, 5597788, 3347139, 04650565 ####[address] [address] Platelet mean volume (Bld) [Entitic vol] 9.4 fL Normal 6.4-10.8 [facility] Comment on above: Performed By: #### 2 722120, 1851899, 2271481, 6489723, 67617765 ####[address] [address] Platelets (Bld) [#/Vol] 269.0 E9/L Normal 150.0-500.0 [facility] Comment on above: Performed By: #### 2 992394, 0281156, 4947866, 7041302, 73108288 ####[address] [address] RBC (Bld) [#/Vol] 5.1 E12/L Normal 4.3-5.9 [facility] Comment on above: Performed By: #### 2 299927, 5001267, 5387917, 1965830, 61522495 ####[facility] [address] [place] [address] WBC corrected for nucl RBC Auto (Bld) [#/Vol] 10.6 E9/L Normal 4.0-11.0 [facility] Comment on above: Performed By: #### 2 281420, 2959213, 8710368, 2621753, 84780439 ####[facility] [address] [place] [address] CMPon 11-30-2022 Albumin [Mass/Vol] 3.2 g/dL Low 3.3-5.0 [facility] Comment on above: Performed By: #### 2 261045, 6658235, 0767860, 6873163, 67552051 ####[facility] [address] [place] [address] Albumin/Globulin (S) [Mass conc ratio] 0.9 Low 1.1-2.2 [facility] Comment on above: Performed By: #### 2 250532, 5305231, 5886867, 6488510, 79616401 ####[facility] [address] [place] [address] ALP [Catalytic activity/Vol] 70 Int._Unit/L Normal 21-98 [facility] Comment on above: Performed By: #### 2 290413, 1728991, 2671668, 5764291, 51053025 ####[facility] [address] [place] [address] ALT No additional P-5'-P [Catalytic activity/Vol] 19 Int._Unit/L Normal 6-46 [facility] Comment on above: Performed By: #### 2 698698, 2008678, 2618462, 3143571, 72323782 ####[address] [place] [address] Anion gap [Moles/Vol] 15 mmol/L Normal 6-16 [facility] Comment on above: Performed By: #### 2 069257, 2281869, 5092266, 5734357, 48182245 ####[facility] [address] [place] [address] AST [Catalytic activity/Vol] 15 Int._Unit/L Normal 5-43 [facility] Comment on above: Performed By: #### 2 808408, 8581443, 4744169, 4724738, 97975514 ####[facility] [address] [place] [address] Bilirubin [Mass/Vol] 0.3 mg/dL Normal 0.0-1.1 [facility] Comment on above: Performed By: #### 2 328734, 2259671, 7242801, 8699664, 38178503 ####[facility] [address] [place] [address] Calcium [Mass/Vol] 9.1 mg/dL Normal 8.9-11.1 [facility] Comment on above: Performed By: #### 2 122501, 9908535, 5119122, 4218145, 55612603 ####[facility] [address] [place] [address] Chloride [Moles/Vol] 100 mmol/L Low 101-111 [facility] Comment on above: Performed By: #### 2 936207, 7320888, 6796937, 0607222, 20504754 ####[facility] [address] [place] [address] CO2 [Moles/Vol] 30 mmol/L Normal 21-31 [facility] Comment on above: Performed By: #### 2 670638, 7543976, 8430979, 1404705, 65053114 ####[facility] [address] [place] [address] Creatinine [Mass/Vol] 0.8 mg/dL Normal 0.5-1.[address] [facility] Comment on above: Performed By: #### 2 861496, 2102836, 5631914, 4379120, 47746115 ####[facility] [address] [place] [address] Globulin (S) [Mass/Vol] 3.5 g/dL Normal 1.4-4.0 [facility] Comment on above: Performed By: #### 2 690848, 9144143, 0839371, 7547259, 21161027 ####[facility] [address] [place] [address] Glucose [Mass/Vol] 123 mg/dL Normal 55-199 [facility] Comment on above: Result Comment: If t his glucose result represents a fasting glucose, interpretation should refer to the following reference range: 55-99 mg/dL Performed By: #### 2 263704, 6230814, 0459674, 6870268, 48097213 ####[facility] [address] [place] [address] Potassium [Moles/Vol] 3.9 mmol/L Normal 3.5-5.[address] [facility] Comment on above: Performed By: #### 2 317560, 7382925, 5295558, 4878402, 83070049 ####[facility] [address] [place] [address] Protein [Mass/Vol] 6.7 g/dL Normal 6.0-7.8 [facility] Comment on above: Performed By: #### 2 066790, 9677560, 9001465, 4331678, 19714978 ####[facility] [address] [place] [address] Sodium [Moles/Vol] 141 mmol/L Normal 135-145 [facility] Comment on above: Performed By: #### 2 949160, 2385866, 2496968, 0174606, 45232468 ####[facility] [address] [place] [address] Urea nitrogen [Mass/Vol] 20 mg/dL Normal 5-21 [facility] Comment on above: Performed By: #### 2 534218, 5803257, 9322734, 0645562, 83079902 ####[facility] [address] [place] [address] Urea nitrogen/Creatinine [Mass ratio] 25 No Units High 10-20 [facility] Comment on above: Performed By: #### 2 308133, 1363149, 5566841, 6178903, 69971081 ####[facility] [address] [place] [address] CRPon 11-30-2022 CRP [Mass/Vol] 1.6 mg/dL Normal <=1.9 [facility] Comment on above: Performed By: #### 2 653820, 3388774, 6588064, 6936534, 09830716 ####[facility] [address] [place] [address] Family Medicine Office/Clini c Noteon 11-30-2022 Family Medicine Office/Clinic Note HPI Staff Jarett is a 57 year old female who presents with C/O fatigue, abdominal pain, loose stools, diarrhea, nausea, dry heaving, chills and heartburn. Denies fever, or vomiting. This has been a concern for a few months. States she feels that everything she eats goes right through her. She has noticed that her weight is down. She has tried TUMS and dicyclomine with minimal effectiveness. States she cannot stomach any other medications without getting sick. She had a CT of her abdomen completed [place] [facility] [place]. States she did have labs drawn in August at [facility]. Also states she has had chronic itching of her skin, but it has gotten worse since the above symptoms started. Also has a concerning skin lesion on the left side of her face, under her eye that she would like to have checked. She noticed it several years ago, but it has been gradually getting larger. Denies pain, itching, bleeding or discharge. Please speak with patient about scheduling an AWV. History of Present Illness I have reviewed and verified the staff HPI to be accurate for this encounter. Review of Systems PHQ Score Initial Depression Screen Score: 0 Constitutional: no fever, no chills, no sweats, no weakness Respiratory: no shortness of breath, no cough, no orthopnea, no wheezing Cardiovascular: no chest pain, no palpitations, no edema Additional ROS info: Except as noted in the above Review of Systems and in the History of Present Illness all other systems have been reviewed and are negative or noncontributory. Physical Exam Vitals & Measurements T: 36.5 ?C(Temporal Artery) HR: 45(Peripheral) BP: 146/82 SpO2: 94% HT: 63 in HT: 160.6 cm General: alert, no acute distress Skin: warm, dry Head: no trauma, normocephalic Neck: Trachea midline, no adenopathy, no tenderness Eye: normal conjunctiva, sclera clear ENMT: TM's clear, oral mucosa moist, no pharyngeal erythema or exudate Cardiovascular: regular rate and rhythm, normal peripheral perfusion Respiratory: Lungs CTA, respirations non labored Chest wall: no deformity. Gastrointestinal: soft, non distended, no tenderness, no guarding. Back: No tenderness, Normal ROM, Normal alignment. Extremities: no deformity, no trauma Neurological: oriented x 4, LOC appropriate for age, CN II-XII intact, motor strength equal & normal bilaterally, sensation equal & normal bilaterally, speech normal Psychiatric: cooperative, affect appropriate for age, normal judgement, normal psychiatric thoughts. Assessment/Plan 1. RUQ pain (R10.11: Right upper quadrant pain) I suspect a lot of this is related to her gallbladder. We will put in another referral for general surgery. She will return to the hospital if she starts to run fever. We will get a start her on Keflex. We will also give her Bentyl and Zofran for the nausea. Again she is to go to the ER if she continues to worsen. Ordered: C-Reactive Protein CBC w/ Auto Diff Comprehensive Metabolic Panel [facility] External Ambulatory Referral Lab Specimen Collect [id number] [place] Gallbladder 2. Dyskinesia of gallbladder (K82.8: Other specified diseases of gallbladder) Ordered: C-Reactive Protein CBC w/ Auto Diff Comprehensive Metabolic Panel [facility] External Ambulatory Referral Lab Specimen Collect [id number] US Gallbladder 3. Pruritic condition (L29.9: Pruritus, unspecified) Ordered: C-Reactive Protein CBC w/ Auto Diff Comprehensive Metabolic Panel [facility] External Ambulatory Referral Lab Specimen Collect [id number] US Gallbladder Orders: amitriptyline, 50 mg = 1 tab(s), Oral, Once a day (at bedtime), # 30 tab(s), Refills(s) 3, [id number], 160, cm, 07/31/20 7:46:00 EST, Height/Length Dosing, 145, kg, 07/31/20 7:46:00 EST, Weight Dosing cephalexin, 500 mg = 1 cap(s), Oral, q12hr, # 20 cap(s), Refills(s) 0, [id number], 160.6, cm, 11/29/22 14:47:00 EDT, Height/Length Dosing colesevelam, 3.75 gm = 1 EA, Oral, Daily, # 30 EA, Refills(s) 0, [id number], 160.6, cm, 11/29/22 14:47:00 EDT, Height/Length Dosing hyoscyamine, 0.125 mg = 1 tab(s), Oral, QID, PRN for spasm, dicyclomine ineffective, # 40 tab(s), Refills(s) 0, [id number], 160.6, cm, 11/29/22 14:47:00 EDT, Height/Length Dosing ondansetron, 4 mg = 1 tab(s), Oral, q8hr, PRN Nausea/Vomiting, # 12 tab(s), Refills(s) 0, [id number], 160.6, cm, 11/29/22 14:47:00 EDT, Height/Length Dosing ondansetron, 4 mg = 1 tab(s), Oral, q8hr, PRN Nausea/Vomiting, # 12 tab(s), Refills(s) 0, Pharmacy: [facility] #[id number], 160, cm, 07/31/20 7:46:00 EST, Height/Length Dosing, 145, kg, 07/31/20 7:46:00 EST, Weight Dosing Follow-up With When Contact Information Jeremias DAVISON DO, FAM Only if needed [address] [place] [address]- Additional Instructions: Problem List/Past Medical History Ongoing Dyskinesia of gallbladder Generalized anxiety disorder Hypertension Morbid obesity Pruritic condit (more content not included)... Normal [facility] Comment on above: Result Comment: Elec tronically Signed By: Jeremias DAVISON DO\.br\Date and Time Signed: 11/29/22 22:31 EDT eGFRon 11-30-2022 GFR/1.73 sq M.predicted among non-blacks MDRD (S/P/Bld) [Vol rate/Area] 85 mL/min/1.73 m2 Normal >=59 [facility] Comment on above: Order Comment: Order added by Discern Expert. Result Comment: Director Of Recruitment tammi kidney disease could be indicated at eGFR's of less than 60 mL/min/1.73m2. Kidney failure is indicated at less than 15 mL/min/1.73m2. Performed By: #### 2 750731, 8635210, 9430607, 0656997, 36897629 ####[facility] [address] [id number] Provider Letteron 11-29-2022 Provider Letter November 29, 2022 JARETT KEBEDE [address] [place] [id number] : 1965 To Whom It May Concern, Please excuse above patient from work. Date of Illness: From: _11/29/2022 To: _12/01/2022 May Return to Work On:12/01/2022 Sincerely, Jeremias Davison DO [address] [place] [address] [facility] Pre-Visit Planningon 023 Pre-Visit Planning - From: Phillip RN, Viji To: Jeremias DAVISON DO; Sent: 11/28/2022 08:55:28 EDT Subject: Pre-Visit Planning Due Date/Time: 11/28/2022 08:55:00 EDT Caller Name: JARETT KEBEDE; Caller Number: H , M Az Dr. Davison *Based on your response below, can you please update the chronic problem list and address during this visit if appropriate?* During a pre-visit planning chart review, I noted the following documentation in the medical record: 07/21/2021 op note for excisional debridement of right leg wound [facility] report: 06/05/2022 Dr. 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 - I can update the problem list with your specified response if you would like. In responding to this request, please exercise your independent professional judgement. The fact that a question is asked does not imply that any particular answer is desired or expected. If you have any questions, please feel free to contact me at extension [phone]. Thank you! ESPERANZA Greer, RN, CCM, CCDS, CCDS-O - From: Jeremias DAVISON DO To: Phillip BROUSSARD, Viji; Sent: 11/28/2022 10:51:33 EDT Subject: RE: Pre-Visit Planning Caller Name: JARETT KEBEDE; Caller Number: Kareem , Christina I am not sure. I have not seen for awhile Normal [facility] CBC AUTO DIFFon 08-17-2022 BASO # 0.1 103/ul Normal 0.0-0.[address] [facility] Comment on above: Performed By: #### C BC #### [facility] [address] [address] [address] Rox Us Basophils/100 WBC (Bld) 0.4 % Normal 0.2-2.0 [facility] Comment on above: Performed By: #### C BC #### [facility] [address] [address] [address] Rox Us EO # 0.2 103/ul Normal 0.0-0.[address] [facility] Comment on above: Performed By: #### C BC #### [facility] [address] [address] [address] Rox Us Eosinophils/100 WBC (Bld) 1.5 % Normal 0.9-7.[address] [facility] Comment on above: Performed By: #### C BC #### [facility] [address] [place] [address] Dr. Rox Us Erythrocyte distribution width (RBC) [Ratio] 15.4 % Critically high 11.0-15.[address] [facility] Comment on above: Performed By: #### C BC #### [facility] [address] [place] [address] Dr. Rox Us Hematocrit (Bld) [Volume fraction] 51.3 % Critically high 36.0-48.[address] [facility] Comment on above: Performed By: #### C BC #### [facility] [address] [place] [address] Dr. Rox Us Hemoglobin (Bld) [Mass/Vol] 15.7 g/dL Normal 12.0-16.[address] [facility] Comment on above: Performed By: #### C BC #### [facility] [address] [place] [address] Dr. Rox Us IG # 0.07 10e3/ul Critically high 0.00-0.03 [facility] Comment on above: Performed By: #### C BC #### [facility] [address] [place] [address] Dr. Rox Us IG % 0.6 % Critically high 0.0-0.5 [facility] Comment on above: Performed By: #### C BC #### [facility] [address] [place] [address] Dr. Rox Us LYMPH # 1.8 103/ul Normal 1.2-3.[address] [facility] Comment on above: Performed By: #### C BC #### [facility] [address] [place] [address] Dr. Rox Us Lymphocytes/100 WBC (Bld) 15.2 % Critically low 20.5-60.[address] [facility] Comment on above: Performed By: #### C BC #### [facility] [address] [place] [address] Dr. Rox Us MANUAL DIFF REQ NO Normal [facility] Comment on above: Performed By: #### C BC #### [facility] [address] [place] [address] Dr. Rox Us MCH (RBC) [Entitic mass] 28.6 pg Normal 26.7-34.[address] [facility] Comment on above: Performed By: #### C BC #### [facility] [address] [place] [address] Dr. Rox Us MCHC (RBC) [Mass/Vol] 30.6 g/dL Normal 29.9-35.[address] [facility] Comment on above: Performed By: #### C BC #### [facility] [address] [place] [address] Dr. Rox Us MCV (RBC) [Entitic vol] 93.6 fL Normal 81.0-99.[address] [facility] Comment on above: Performed By: #### C BC #### [facility] [address] [place] [address] Dr. Rox Us MONO # 0.8 103/ul Normal 0.3-0.[address] [facility] Comment on above: Performed By: #### C BC #### [facility] [address] [place] [address] Dr. Rox Us Monocytes/100 WBC (Bld) 7.2 % Normal 1.7-12.0 [facility] Comment on above: Performed By: #### C BC #### [facility] [address] [place] [address] Dr. Rox Us NEUT # 8.8 103/ul Critically high 1.4-6.5 [facility] Comment on above: Performed By: #### C BC #### [facility] [address] [place] [address] Dr. Rox Us Neutrophils/100 WBC (Bld) 75.1 % Critically high 43.0-75.0 [facility] Comment on above: Performed By: #### C BC #### [facility] [address] [place] [address] Dr. Rox Us Platelet mean volume (Bld) [Entitic vol] 9.5 fL Normal 9.5-13.[address] [facility] Comment on above: Performed By: #### C BC #### [facility] [address] [place] [address] Dr. Rox Us PLT 302 103/ul Normal 150-450 [facility] Comment on above: Performed By: #### C BC #### [facility] [address] [place] [address] Dr. Rox Us RBC 5.48 106/ul Critically high 4.20-5.40 [facility] Comment on above: Performed By: #### C BC #### [facility] [address] [place] [address] Dr. Rox Us WBC 11.7 103/ul Critically high 4.0-11.0 [facility] Comment on above: Performed By: #### C BC #### [facility] [address] [place] [address] Dr. Rox Us PROF 14(COMP METB)on 023 Albumin [Mass/Vol] 3.1 g/dL Critically low 3.4-5.0 [facility] Comment on above: Performed By: #### C MP #### [facility] [address] [place] [address] Dr. Rox Us Albumin/Globulin [Mass ratio] 0.7 {ratio} Normal [facility] Comment on above: Performed By: #### C MP #### [facility] [address] [place] [address] Dr. Rox Us ALP [Catalytic activity/Vol] 87 U/L Normal 46-116 [facility] Comment on above: Performed By: #### C MP #### [facility] [address] [place] [address] Dr. Rox Us ALT [Catalytic activity/Vol] 24 U/L Normal 14-[address] [facility] Comment on above: Performed By: #### C MP #### [facility] [address] [address] [address] Rox Us Anion gap [Moles/Vol] 8.5 mmol/L Normal [facility] Comment on above: Performed By: #### C MP #### [facility] [address] [address] [address] Rox Us AST [Catalytic activity/Vol] 14 U/L Critically low 15-[address] [facility] Comment on above: Performed By: #### C MP #### [facility] [address] [address] [address] Rox Us Bilirubin [Mass/Vol] 0.3 mg/dL Normal 0.2-1.[address] [facility] Comment on above: Performed By: #### C MP #### [facility] [address] [address] [address] Rox Us Calcium [Mass/Vol] 9.3 mg/dL Normal 8.5-10.1 [facility] Comment on above: Performed By: #### C MP #### [facility] [address] [address] [address] Rox Us Chloride [Moles/Vol] 102 mmol/L Normal 98-107 [facility] Comment on above: Performed By: #### C MP #### [facility] [address] [address] [address] Rox Us CO2 [Moles/Vol] 34.6 mmol/L Critically high 21.0-32.0 [facility] Comment on above: Performed By: #### C MP #### [facility] [address] [address] [address] Rox Us Creatinine [Mass/Vol] 0.76 mg/dL Normal 0.55-1.02 [facility] Comment on above: Performed By: #### C MP #### [facility] [address] [address] [address] Rox Us EGFR-AF TOGOLESE >60 Normal >=60 [facility] Comment on above: Performed By: #### C MP #### [facility] [address] [address] [address] Rox Us EGFR-NON AF TOGOLESE >60 Normal >=[address] [facility] Comment on above: Performed By: #### C MP #### [facility] [address] [place] [address] Dr. Rox Us Globulin (S) [Mass/Vol] 4.3 g/dL Normal [facility] Comment on above: Performed By: #### C MP #### [facility] [address] [address] [address] Rox Us Glucose [Mass/Vol] 125 mg/dL Critically high 74-106 [facility] Comment on above: Performed By: #### C MP #### [facility] [address] [address] [address] Rox Us Potassium [Moles/Vol] 4.1 mmol/L Normal 3.5-5.[address] [facility] Comment on above: Performed By: #### C MP #### [facility] [address] [place] [address] Dr. Rox Us Protein [Mass/Vol] 7.4 g/dL Normal 6.4-8.2 [facility] Comment on above: Performed By: #### C MP #### [facility] [address] [place] [address] Dr. Rox Us Sodium [Moles/Vol] 141 mmol/L Normal 136-145 [facility] Comment on above: Performed By: #### C MP #### [facility] [address] [address] [address] Rox Us Urea nitrogen [Mass/Vol] 21.0 mg/dL Critically high 7.0-18.[address] [facility] Comment on above: Performed By: #### C MP #### [facility] [address] [address] [address] Rox Us Urea nitrogen/Creatinine [Mass ratio] 27.6 mg/mg Normal [facility] Comment on above: Performed By: #### C MP #### [facility] [address] [place] [address] Dr. Rox Us SED RATE [facility] 2022 SED RATE 52 mm/hr Critically high <=30 [facility] Comment on above: Performed By: #### S EDR #### [facility] [address] [address] [address] Rox Us Albumin [Mass/volume] in Ser um or PlasmaOrdered By: Juan Carlos Baldwin on 01-12-2022 Albumin [Mass/Vol] 3.2 g/dL 3.2-5.5 [facility] Basophils Auto (Bld) [#/Vol] Ordered By: Juan Carlos Baldwin on 01-12-2022 Basophils (Bld) [#/Vol] 0.1 10*3/uL 0.0-0.2 [facility] Basophils/100 WBC Auto (Bld) Ordered By: Juan Carlos Baldwin on 01-12-2022 Basophils/100 WBC (Bld) 0.5 % [facility] Blood hemoglobin measurement (mass/volume)Ordered By: Juan Carlos Baldwin on 01-12-2022 Hemoglobin (Bld) [Mass/Vol] 13.8 g/dL 11.8-15.4 [facility] Blood leukocytes automated c ount (number/volume)Ordered By: Juan Carlos Baldwin on 01-12-2022 WBC (Bld) [#/Vol] 9.7 10*3/uL 4.5-11.0 [facility] Complete Blood Count Auto Di ffon 01-12-2022 Basophils (Bld) [#/Vol] 0.1 10*3/uL Normal 0.0-0.2 [facility] Comment on above: Performed By: #### C BC, CMP, ESR #### [facility] [address] [place] [address] [place] Basophils/100 WBC (Bld) 0.5 % Normal . [facility] Comment on above: Performed By: #### C BC, CMP, ESR #### [facility] [address] [place] [address] [place] Eosinophils (Bld) [#/Vol] 0.2 10*3/uL Normal 0.0-0.45 [facility] Comment on above: Performed By: #### C BC, CMP, ESR #### [facility] [address] Eosinophils/100 WBC (Bld) 1.8 % Normal . [facility] Comment on above: Performed By: #### C BC, CMP, ESR #### [facility] [address] Erythrocyte distribution width (RBC) [Ratio] 17.4 % High 11.9-15.3 [facility] Comment on above: Performed By: #### C BC, CMP, ESR #### [address] Hematocrit (Bld) [Volume fraction] 42.7 % Normal 34.0-46.4 [facility] Comment on above: Performed By: #### C BC, CMP, ESR #### [address] Hemoglobin (Bld) [Mass/Vol] 13.8 g/dL Normal 11.8-15.4 [facility] Comment on above: Performed By: #### C BC, CMP, ESR #### [address] Lymphocytes (Bld) [#/Vol] 1.8 10*3/uL Normal 1.00-4.8 [facility] Comment on above: Performed By: #### C BC, CMP, ESR #### [address] Lymphocytes/100 WBC (Bld) 18.3 % Normal . [facility] Comment on above: Performed By: #### C BC, CMP, ESR #### [place] [address] [place] MCH (RBC) [Entitic mass] 27.4 pg Normal 24.7-34.3 [facility] Comment on above: Performed By: #### C BC, CMP, ESR #### [address] MCV (RBC) [Entitic vol] 84.5 fL Normal 80-100 [facility] Comment on above: Performed By: #### C BC, CMP, ESR #### [address] [place] [address] [place] Mean Corpuscular HGB Conc 32.4 g/dL Normal 32.0-35.0 [facility] Comment on above: Performed By: #### C BC, CMP, ESR #### [facility] [address] [place] [address] [place] Monocytes (Bld) [#/Vol] 0.6 10*3/uL Normal 0.0-0.8 [facility] Comment on above: Performed By: #### C BC, CMP, ESR #### [facility] [address] [place] [address] [place] Monocytes/100 WBC (Bld) 6.5 % Normal . [facility] Comment on above: Performed By: #### C BC, CMP, ESR #### [facility] [address] [place] [address] [place] Neutrophils (Bld) [#/Vol] 7.1 10*3/uL Normal 1.8-7.7 [facility] Comment on above: Performed By: #### C BC, CMP, ESR #### [facility] [address] [place] [address] [place] Neutrophils/100 WBC (Bld) 72.9 % Normal . [facility] Comment on above: Performed By: #### C BC, CMP, ESR #### [facility] [address] [place] [address] [place] Nucleated RBC/100 WBC (Bld) [Ratio] 0.1 % Normal 0-0.5 [facility] Comment on above: Performed By: #### C BC, CMP, ESR #### [facility] [address] [place] [address] [place] Platelet mean volume (Bld) [Entitic vol] 8.1 fL Normal 6.3-10.7 [facility] Comment on above: Performed By: #### C BC, CMP, ESR #### [facility] [address] [place] [address] [place] Platelets (Bld) [#/Vol] 341 10*3/uL Normal 150-450 [facility] Comment on above: Performed By: #### C BC, CMP, ESR #### [facility] [address] [place] [address] RBC (Bld) [#/Vol] 5.06 10*6/uL High 3.60-5.00 [facility] Comment on above: Performed By: #### C BC, CMP, ESR #### [address] WBC (Bld) [#/Vol] 9.7 10*3/uL Normal 4.5-11.0 [facility] Comment on above: Performed By: #### C BC, CMP, ESR #### [address] Comprehensive Metabolic Pane lola 01-12-2022 Albumin [Mass/Vol] 3.2 g/dL Normal 3.2-5.5 [facility] Comment on above: Performed By: #### C BC, CMP, ESR #### [address] Albumin/Globulin [Mass ratio] 0.9 {ratio} Normal [facility] Comment on above: Performed By: #### C BC, CMP, ESR #### [address] ALP [Catalytic activity/Vol] 76 U/L Normal 32-92 [facility] Comment on above: Result Comment: PERF ORMED BY: [place] [address] PATHOLOGIST COMM[employer]ICATIONS STATION MANAGER CRYSTAL SPRING M.D. Performed By: #### C BC, CMP, ESR #### [address] ALT [Catalytic activity/Vol] 15 U/L Normal 10-60 [facility] Comment on above: Performed By: #### C BC, CMP, ESR #### [address] AST [Catalytic activity/Vol] 16 U/L Normal 10-42 [facility] Comment on above: Performed By: #### C BC, CMP, ESR #### [facility] [address] [place] [address] [place] Bilirubin [Mass/Vol] 0.4 mg/dL Normal 0.3-1.2 [facility] Comment on above: Performed By: #### C BC, CMP, ESR #### [facility] [address] Calcium [Mass/Vol] 9.6 mg/dL Normal 8.2-10.2 [facility] Comment on above: Performed By: #### C BC, CMP, ESR #### [facility] [address] Chloride [Moles/Vol] 98 mmol/L Normal 95-114 [facility] Comment on above: Performed By: #### C BC, CMP, ESR #### [facility] [address] CO2 [Moles/Vol] 29.4 mmol/L Normal 22.0-30.0 [facility] Comment on above: Performed By: #### C BC, CMP, ESR #### [facility] [address] Creatinine [Mass/Vol] 0.84 mg/dL Normal 0.44-1.03 [facility] Comment on above: Performed By: #### C BC, CMP, ESR #### [facility] [address] [place] [address] [place] Estimated GFR ( Perla > 60 [facility] Comment on above: Result Comment: GFR estimated reference range: According to KDOQI guidelines, <60 ml/min/1.73m2 is sufficient to diagnose a patient with chronic kidney disease. Performed By: #### C BC, CMP, ESR #### [facility] [address] [place] [address] [place] Estimated GFR (Non- Am > 60 [facility] Comment on above: Performed By: #### C BC, CMP, ESR #### [facility] [address] [place] [address] [place] Globulin (S) [Mass/Vol] 3.7 g/dL [facility] Comment on above: Performed By: #### C MESFIN CMP, ESR #### [facility] [address] [id number] [place] Glucose [Mass/Vol] 115 mg/dL High 70-100 [facility] Comment on above: Result Comment: [place] Glucose Reference Range is dependent on time and content of last meal. Glucose of more than 200 mg/dL in a nonstressed, ambulatory subject supports the diagnosis of Diabetes Mellitus. ADA recommended reference range Performed By: #### C MESFIN, CMP, ESR #### [facility] [address] Potassium [Moles/Vol] 5.0 mmol/L Normal 3.5-5.1 [facility] Comment on above: Performed By: #### C DICK TOURE, ESR #### [facility] [address] Protein [Mass/Vol] 6.9 g/dL Normal 6.1-7.9 [facility] Comment on above: Performed By: #### C MESFIN CMP, ESR #### [facility] [address] Sodium [Moles/Vol] 140 mmol/L Normal 136-146 [facility] Comment on above: Performed By: #### C DICK TOURE, ESR #### [facility] [address] [id number] [place] Urea nitrogen [Mass/Vol] 17 mg/dL Normal 9-23 [facility] Comment on above: Performed By: #### C DICK TOURE, ESR #### [facility] [address] [place] [address] [place] Creatinine and Glomerular fi ltration rate.predicted panel (S/P/Bld)Ordered By: Juan Carlos Baldwin on 01-12-2022 Creatinine [Mass/Vol] 0.84 mg/dL 0.44-1.03 [facility] Eosinophils Auto (Bld) [#/Vo l]Ordered By: Juan Carlos Baldwin on 01-12-2022 Eosinophils (Bld) [#/Vol] 0.2 10*3/uL 0.0-0.45 [facility] Eosinophils/100 WBC Auto (Bl d)Ordered By: Juan Carlos Baldwin on 01-12-2022 Eosinophils/100 WBC (Bld) 1.8 % [facility] Erythrocyte Sedimentation Ra daysi 01-12-2022 ESR (Bld) [Velocity] 47 mm/h High 0- [facility] Comment on above: Result Comment: PERF ORMED BY: [facility] [address] [place] [address] PATHOLOGIST COMMUNICATIONS STATION MANAGER CRYSTAL SPRING M.D. Performed By: #### C BC, CMP, ESR #### [facility] [address] Erythrocyte distribution wid th Auto (RBC) [Ratio]Ordered By: Juan Carlos Baldwin on 01-12-2022 Erythrocyte distribution width (RBC) [Ratio] 17.4 % 11.9-15.3 [facility] Erythrocyte sedimentation ra te by Photometric methodOrdered By: Juan Carlos Baldwin on 01-12-2022 ESR Photometric method (Bld) [Velocity] 47 mm/hr 0- [facility] Estimated glomerular filtrat ion rate (GFR) non- AmericanOrdered By: Juan Carlos Baldwin on 01-12-2022 GFR/1.73 sq M.predicted among non-blacks MDRD (S/P/Bld) [Vol rate/Area] > 60 mL/Min [facility] Globulin Calc (S) [Mass/Vol] Ordered By: Juan Carlos Baldwin on 01-12-2022 Globulin (S) [Mass/Vol] 3.7 g/dL [facility] Hematocrit Auto (Bld) [Volum e fraction]Ordered By: Juan Carlos Baldwin on 01-12-2022 Hematocrit (Bld) [Volume fraction] 42.7 % 34.0-46.4 [facility] - Hematology and Cell countsOrdered By: Juan Carlos Baldwin on 01-12-2022 Nucleated RBC/100 WBC (Bld) [Ratio] 0.1 % 0-0.5 [facility] Lymphocytes Auto (Bld) [#/Vo l]Ordered By: Juan Carlos Balwdin on 01-12-2022 Lymphocytes (Bld) [#/Vol] 1.8 10*3/uL 1.00-4.8 [facility] Lymphocytes/100 WBC Auto (Bl d)Ordered By: Juan Carlos Baldwin on 01-12-2022 Lymphocytes/100 WBC (Bld) 18.3 % [facility] MCH Auto (RBC) [Entitic mass ]Ordered By: Juan Carlos Baldwin on 01-12-2022 MCH (RBC) [Entitic mass] 27.4 pg 24.7-34.3 [facility] MCHC Auto (RBC) [Mass/Vol]Or dered By: Juan Carlos Baldwin on 01-12-2022 MCHC (RBC) [Mass/Vol] 32.4 g/dL 32.0-35.0 [facility] MCV Auto (RBC) [Entitic vol] Ordered By: Juan Carlos Baldwin on 01-12-2022 MCV (RBC) [Entitic vol] 84.5 fL 80-100 [facility] Monocytes Auto (Bld) [#/Vol] Ordered By: Juan Carlos Baldwin on 01-12-2022 Monocytes (Bld) [#/Vol] 0.6 10*3/uL 0.0-0.8 [facility] Monocytes/100 WBC Auto (Bld) Ordered By: Juan Carlos Baldwin on 01-12-2022 Monocytes/100 WBC (Bld) 6.5 % [facility] Neutrophils Auto (Bld) [#/Vo l]Ordered By: Juan Carlos Baldwin on 01-12-2022 Neutrophils (Bld) [#/Vol] 7.1 10*3/uL 1.8-7.7 [facility] Neutrophils/100 WBC Auto (Bl d)Ordered By: Juan Carlos Baldwin on 01-12-2022 Neutrophils/100 WBC (Bld) 72.9 % [facility] No Panel InformationOrdered By: Juan Carlos Baldwin on 01-12-2022 Estimated GFR () > 60 mL/Min [facility] Comment on above: GFR estimated refere nce range: According to KDOQI guidelines, <60 ml/min/1.73m2 is sufficient to diagnose a patient with chronic kidney disease. Pharmacy Creatinine Clearance (Chem N/A [facility] Platelet mean volume Auto (B ld) [Entitic vol]Ordered By: Juan Carlos Baldwin on 01-12-2022 Platelet mean volume (Bld) [Entitic vol] 8.1 fL 6.3-10.7 [facility] Platelets Auto (Bld) [#/Vol] Ordered By: Juan Carlos Baldwin on 01-12-2022 Platelets (Bld) [#/Vol] 341 10*3/uL 150-450 [facility] Protein [Mass/volume] in Ser um or PlasmaOrdered By: Juan Carlos Baldwin on 01-12-2022 Protein [Mass/Vol] 6.9 g/dL 6.1-7.9 [facility] RBC Auto (Bld) [#/Vol]Ordere d By: Juan Carlos Baldwin on 01-12-2022 RBC (Bld) [#/Vol] 5.06 10*6/uL 3.60-5.00 [facility] Serum or plasma alanine [place]o otransferase measurement without P-5'-P (enzymatic activiOrdered By: Juan Carlos Baldwin on 01-12-2022 ALT No additional P-5'-P [Catalytic activity/Vol] 15 U/L 10-60 [facility] Serum or plasma albumin/glob ulin mass ratioOrdered By: Juan Carlos Baldwin on 01-12-2022 Albumin/Globulin [Mass ratio] 0.9 {ratio} [facility] Serum or plasma alkaline breanna sphatase measurement (enzymatic activity/volume)Ordered By: Juan Carlos Baldwin on 01-12-2022 ALP [Catalytic activity/Vol] 76 U/L 32-92 [facility] Serum or plasma aspartate am inotransferase measurement (enzymatic activity/volume)Ordered By: Juan Carlos Baldwin on 01-12-2022 AST [Catalytic activity/Vol] 16 U/L 10-42 [facility] Serum or plasma calcium wayne urement (mass/volume)Ordered By: Juan Carlos Baldwin on 01-12-2022 Calcium [Mass/Vol] 9.6 mg/dL 8.2-10.2 [facility] Serum or plasma chloride arcadio surement (moles/volume)Ordered By: Juan Carlos Baldwin on 01-12-2022 Chloride [Moles/Vol] 98 mmol/L 95-114 [facility] Serum or plasma glucose wayne urement (mass/volume)Ordered By: Juan Carlos Baldwin on 01-12-2022 Glucose [Mass/Vol] 115 mg/dL 70-100 [facility] Comment on above: ADA recommended refe rence range Random Glucose Reference Range is dependent on time and content of last meal. Glucose of more than 200 mg/dL in a nonstressed, ambulatory subject supports the diagnosis of Diabetes Mellitus. Serum or plasma potassium me asurement (moles/volume)Ordered By: Juan Carlos Baldwin on 01-12-2022 Potassium [Moles/Vol] 5.0 mmol/L 3.5-5.1 [facility] Serum or plasma sodium measu rement (moles/volume)Ordered By: Juan Carlos Baldwin on 01-12-2022 Sodium [Moles/Vol] 140 mmol/L 136-146 [facility] Serum or plasma total biliru bin measurement (mass/volume)Ordered By: Juan Carlos Baldwin on 01-12-2022 Bilirubin [Mass/Vol] 0.4 mg/dL 0.3-1.2 [facility] Serum or plasma total carbon dioxide measurement (moles/volume)Ordered By: Juan Carlos Baldwin on 01-12-2022 CO2 [Moles/Vol] 29.4 mmol/L 22.0-30.0 [facility] Serum or plasma urea nitroge n measurement (mass/volume)Ordered By: Juan Carlos Baldwin on 01-12-2022 Urea nitrogen [Mass/Vol] 17 mg/dL 9-23 [facility] BASIC METABOLIC PANELon 2 Calcium [Mass/Vol] 7.7 mg/dL Low 8.6-10.3 [facility] Comment on above: Order Comment: Yes: Add to Previous draw if able Performed By: #### 0 0071 ####[facility] [place] [address], [facility] Chloride [Moles/Vol] 104 mmol/L Normal 98-107 [facility] Comment on above: Order Comment: Yes: Add to Previous draw if able Performed By: #### 0 0071 ####[facility] [place] [address], [facility] CO2 [Moles/Vol] 31 mmol/L Normal 21-31 [facility] Comment on above: Order Comment: Yes: Add to Previous draw if able Performed By: #### 0 0071 ####[facility] [facility] [place] [address], [place] Creatinine [Mass/Vol] 0.62 mg/dL Normal 0.60-1.20 [facility] Comment on above: Order Comment: Yes: Add to Previous draw if able Performed By: #### 0 0071 ####[facility] [facility] [place] [address], [facility] GFR/1.73 sq M predicted among blacks MDRD (S/P/Bld) [Vol rate/Area] mL/min/{1.73_m2} Normal >60 [facility] Comment on above: Order Comment: Yes: Add to Previous draw if able Performed By: #### 0 0071 ####[facility] [facility] [place] [address], [place] GFR/1.73 sq M predicted among non-blacks MDRD (S/P/Bld) [Vol rate/Area] mL/min/{1.73_m2} Normal >60 [facility] Comment on above: Order Comment: Yes: Add to Previous draw if able Performed By: #### 0 0071 ####[facility] [facility] [place] [address], [place] Glucose [Mass/Vol] 100 mg/dL Normal 70-100 [facility] Comment on above: Order Comment: Yes: Add to Previous draw if able Performed By: #### 0 0071 ####[facility] [facility] [address], [place] Potassium [Moles/Vol] 4.0 mmol/L Normal 3.5-5.1 [facility] Comment on above: Order Comment: Yes: Add to Previous draw if able Performed By: #### 0 0071 ####[facility] [facility].[address] Sodium [Moles/Vol] 140 mmol/L Normal 136-145 [facility] Comment on above: Order Comment: Yes: Add to Previous draw if able Performed By: #### 0 0071 ####[facility] [facility].[address] Urea nitrogen [Mass/Vol] 15 mg/dL Normal 7-25 [facility] Comment on above: Order Comment: Yes: Add to Previous draw if able Performed By: #### 0 0071 ####[facility] CBC W/DIFFon 08-07-2020 ABS BASOPHILS 0.0 10*3/uL Normal 0.0-0.2 [facility] Comment on above: Order Comment: No: D o not add to previous draw Performed By: #### 5 3 #### [facility] [address] [place] [address], [facility] ABS NEUTROPHILS 9.7 10*3/uL High 1.6-7.6 [facility] Comment on above: Order Comment: No: D o not add to previous draw Performed By: #### 5 3 #### [facility] [address] [facility] [place] [address], [facility] Basophils/100 WBC (Bld) 0.0 % Normal 0.0-1.0 [facility] Comment on above: Order Comment: No: D o not add to previous draw Performed By: #### 5 3 #### [facility] [address] [place] [address], [facility] Eosinophils (Bld) [#/Vol] 0.3 10*3/uL Normal 0.0-0.5 [facility] Comment on above: Order Comment: No: D o not add to previous draw Performed By: #### 5 0103 #### [facility] [address] [place] [address], [facility] Eosinophils/100 WBC (Bld) 2.7 % Normal 0.0-6.0 [facility] Comment on above: Order Comment: No: D o not add to previous draw Performed By: #### 5 0103 #### [facility] [address] [place] [address], [facility] Erythrocyte distribution width (RBC) [Ratio] 14.3 % Normal 11.5-15.0 [facility] Comment on above: Order Comment: No: D o not add to previous draw Performed By: #### 5 0103 #### [facility] [address] [place] [address], [facility] Hematocrit (Bld) [Volume fraction] 35.7 % Low 36.0-45.0 [facility] Comment on above: Order Comment: No: D o not add to previous draw Performed By: #### 5 0103 #### [facility] [address] [place] [address], [facility] Hemoglobin (Bld) [Mass/Vol] 10.9 g/dL Low 12.0-15.0 [facility] Comment on above: Order Comment: No: D o not add to previous draw Performed By: #### 5 0103 #### [facility] [address] [place] [address], [facility] Lymphocytes (Bld) [#/Vol] 0.7 10*3/uL Low 1.2-4.0 [facility] Comment on above: Order Comment: No: D o not add to previous draw Performed By: #### 5 0103 #### [facility] [address] [place] [address], [facility] Lymphocytes/100 WBC (Bld) 6.3 % Low 20.0-45.0 [facility] Comment on above: Order Comment: No: D o not add to previous draw Performed By: #### 5 0103 #### [facility] [address] [place] [address], [facility] MCH (RBC) [Entitic mass] 27.3 pg Normal 27.0-33.0 [facility] Comment on above: Order Comment: No: D o not add to previous draw Performed By: #### 5 0103 #### [facility] [address] [place] [address], [facility] MCHC (RBC) [Mass/Vol] 30.5 g/dL Low 32.0-35.0 [facility] Comment on above: Order Comment: No: D o not add to previous draw Performed By: #### 5 0103 #### [facility] [address] [place] [address], [facility] MCV (RBC) [Entitic vol] 89.5 fL Normal 82.0-98.0 [facility] Comment on above: Order Comment: No: D o not add to previous draw Performed By: #### 5 0103 #### [facility] [address] [facility] [place] [address], [facility] Monocytes (Bld) [#/Vol] 0.8 10*3/uL Normal 0.1-1.0 [facility] Comment on above: Order Comment: No: D o not add to previous draw Performed By: #### 5 0103 #### [facility] [address] [facility] [address] MONOS 7.2 % Normal 5.0-12.0 [facility] Comment on above: Order Comment: No: D o not add to previous draw Performed By: #### 5 0103 #### [facility] [address] [facility] [place] [address], [facility] MYELOS 0.9 % High 0.0-0.0 [facility] Comment on above: Order Comment: No: D o not add to previous draw Performed By: #### 5 3 #### [facility] [address] [place] [address], [place] Neutrophils/100 WBC (Bld) 82.9 % High 40.0-72.0 [facility] Comment on above: Order Comment: No: D o not add to previous draw Performed By: #### 5 0103 #### [facility] [address] [place] [address], [place] Nucleated RBC/100 WBC (Bld) [Ratio] 0 % Normal 0-0 [facility] Comment on above: Order Comment: No: D o not add to previous draw Performed By: #### 5 0103 #### [facility] [address] [place] [address], [place] PLAT CNT 388 10*3/uL Normal 150-400 [facility] Comment on above: Order Comment: No: D o not add to previous draw Performed By: #### 5 0103 #### [facility] [address] [place] [address], [place] RBC (Bld) [#/Vol] 3.99 10*6/uL Normal 3.80-5.00 The [facility] Comment on above: Order Comment: No: D o not add to previous draw Performed By: #### 5 0103 #### [facility] [address] [place] [address], [place] WBC (Bld) [#/Vol] 11.71 10*3/uL High 4.00-10.60 The [facility] Comment on above: Order Comment: No: D o not add to previous draw Performed By: #### 5 0103 #### [facility] [address] [place] [address], [place] BASIC METABOLIC PANELon 07-17 Calcium [Mass/Vol] 7.8 mg/dL Low 8.6-10.3 [facility] Comment on above: Order Comment: No: D o not add to previous draw Performed By: #### 4 1000, 74476, 29571 ####[facility] [place] [address], [place] Chloride [Moles/Vol] 102 mmol/L Normal 98-107 The [facility] Comment on above: Order Comment: No: D o not add to previous draw Performed By: #### 4 1000, 08356, 09954 ####[facility] [place] [address], [place] CO2 [Moles/Vol] 32 mmol/L High 21-31 The [facility] Comment on above: Order Comment: No: D o not add to previous draw Performed By: #### 4 1000, 17569, 33522 ####[facility] [place] [address], [place] Creatinine [Mass/Vol] 0.73 mg/dL Normal 0.60-1.20 The [facility] Comment on above: Order Comment: No: D o not add to previous draw Performed By: #### 4 999, 56650, 04088 ####[facility] [place] [address], [place] GFR/1.73 sq M predicted among blacks MDRD (S/P/Bld) [Vol rate/Area] mL/min/{1.73_m2} Normal >60 The [facility] Comment on above: Order Comment: No: D o not add to previous draw Performed By: #### 4 999, 68909, 92379 ####[facility] [place] [address], [place] GFR/1.73 sq M predicted among non-blacks MDRD (S/P/Bld) [Vol rate/Area] mL/min/{1.73_m2} Normal >60 The [facility] Comment on above: Order Comment: No: D o not add to previous draw Performed By: #### 4 999, 43036, 26794 ####[facility] [place] [address], [place] Glucose [Mass/Vol] 95 mg/dL Normal 70-100 [facility] Comment on [facility]: Order Comment: No: D o not add to previous draw Performed By: #### 4 1000, 09799, 11410 ####[facility] [place] [address], [facility] Potassium [Moles/Vol] 3.8 mmol/L Normal 3.5-5.1 The [facility] Comment on above: Order Comment: No: D o not add to previous draw Performed By: #### 4 1000, 44216, 46827 ####[facility] [id number], [facility] Sodium [Moles/Vol] 139 mmol/L Normal 136-145 The [facility] Comment on above: Order Comment: No: D o not add to previous draw Performed By: #### 4 999, 76814, 32968 ####[facility] [id number], [facility] Urea nitrogen [Mass/Vol] 18 mg/dL Normal 7-25 The [facility] Comment on above: Order Comment: No: D o not add to previous draw Performed By: #### 4 1000, 41373, 08062 ####[facility] [place] [address], [facility] CBC COMPLETE BLOOD COUNTon 0 - Erythrocyte distribution width (RBC) [Ratio] 14.3 % Normal 11.5-15.0 The [facility] Comment on above: Order Comment: Yes: Add to Previous draw if able Performed By: #### 1 4 #### [facility] [address] [place] [address], [place] Hematocrit (Bld) [Volume fraction] 36.8 % Normal 36.0-45.0 The [facility] Comment on above: Order Comment: Yes: Add to Previous draw if able Performed By: #### 1 4 #### [facility] [address] [place] [address], [facility] Hemoglobin (Bld) [Mass/Vol] 11.2 g/dL Low 12.0-15.0 The [facility] Comment on above: Order Comment: Yes: Add to Previous draw if able Performed By: #### 1 0204 #### [facility] [address] [place] [id number], [facility] MCH (RBC) [Entitic mass] 27.3 pg Normal 27.0-33.0 [facility] Comment on above: Order Comment: Yes: Add to Previous draw if able Performed By: #### 1 0204 #### [facility] [address] [place] [address], [facility] MCHC (RBC) [Mass/Vol] 30.4 g/dL Low 32.0-35.0 [facility] Comment on above: Order Comment: Yes: Add to Previous draw if able Performed By: #### 1 0204 #### [facility] [address] [place] [address], [facility] MCV (RBC) [Entitic vol] 89.5 fL Normal 82.0-98.0 [facility] Comment on above: Order Comment: Yes: Add to Previous draw if able Performed By: #### 1 0204 #### [facility] [address] [facility] [place] [address], [facility] Nucleated RBC/100 WBC (Bld) [Ratio] 0 % Normal 0-0 The [facility] Comment on above: Order Comment: Yes: Add to Previous draw if able Performed By: #### 1 0204 #### [facility] [address] [place] [address], [facility] PLAT CNT 405 10*3/uL High 150-400 [facility] Comment on above: Order Comment: Yes: Add to Previous draw if able Performed By: #### 1 0204 #### [facility] [address] [place] [address], [facility] RBC (Bld) [#/Vol] 4.11 10*6/uL Normal 3.80-5.00 [facility] Comment on above: Order Comment: Yes: Add to Previous draw if able Performed By: #### 1 0204 #### [facility] [address] [place] [address], [facility] WBC (Bld) [#/Vol] 14.15 10*3/uL High 4.00-10.60 [facility] Comment on above: Order Comment: Yes: Add to Previous draw if able Performed By: #### 1 0204 #### [facility] [address] [place] [address], [facility] MAGNESIUM BLOODon 08-06-2020 Magnesium [Mass/Vol] 2.3 mg/dL Normal 1.9-2.7 The [facility] Comment on above: Performed By: #### 4 1000, 72703, 20841 ####[facility] [place] [address], [facility] PHOSPHORUS BLOODon Phosphate [Mass/Vol] 2.7 mg/dL Normal 2.5-5.0 The [facility] Comment on above: Performed By: #### 4 1000, 08174, 92980 ####[facility] [facility] [place] [address], [facility] BASIC METABOLIC PANELon 07-17 Calcium [Mass/Vol] 8.0 mg/dL Low 8.6-10.3 [facility] Comment on above: Order Comment: No: D o not add to previous draw Performed By: #### 0 0071 ####[facility] [place] [address], [facility] Chloride [Moles/Vol] 102 mmol/L Normal 98-107 [facility] Comment on above: Order Comment: No: D o not add to previous draw Performed By: #### 0 0071 ####[facility] [place] [address], [facility] CO2 [Moles/Vol] 32 mmol/L High 21-31 The [facility] Comment on above: Order Comment: No: D o not add to previous draw Performed By: #### 0 0071 ####[facility] [facility] [address], [facility] Creatinine [Mass/Vol] 0.73 mg/dL Normal 0.60-1.20 [facility] Comment on above: Order Comment: No: D o not add to previous draw Performed By: #### 0 0071 ####[facility] [facility] [place] [address], [facility] GFR/1.73 sq M predicted among blacks MDRD (S/P/Bld) [Vol rate/Area] mL/min/{1.73_m2} Normal >60 The [facility] Comment on above: Order Comment: No: D o not add to previous draw Performed By: #### 0 0071 ####[facility] [facility] [place] [address], [facility] GFR/1.73 sq M predicted among non-blacks MDRD (S/P/Bld) [Vol rate/Area] mL/min/{1.73_m2} Normal >60 The [facility] Comment on above: Order Comment: No: D o not add to previous draw Performed By: #### 0 0071 ####[facility] [facility] [place] [address], [place] Glucose [Mass/Vol] 107 mg/dL High 70-100 [facility] Comment on above: Order Comment: No: D o not add to previous draw Performed By: #### 0 0071 ####[facility] [facility] [place] [address], [place] Potassium [Moles/Vol] 4.0 mmol/L Normal 3.5-5.1 [facility] Comment on above: Order Comment: No: D o not add to previous draw Performed By: #### 0 0071 ####[facility] [facility].[address] Sodium [Moles/Vol] 138 mmol/L Normal 136-145 The [facility] Comment on above: Order Comment: No: D o not add to previous draw Performed By: #### 0 0071 ####[facility] [facility].[address] Urea nitrogen [Mass/Vol] 20 mg/dL Normal 7-25 The [facility] Comment on above: Order Comment: No: D o not add to previous draw Performed By: #### 0 0071 ####[address] CBC W/DIFFon 08-05-2020 ABS BASOPHILS 0.1 10*3/uL Normal 0.0-0.2 The [facility] Comment on above: Order Comment: Yes: Add to Previous draw if able Performed By: #### 5 3 ####[address] ABS IMM GRANS 0.2 10*3/uL Normal 0.0-0.2 The [facility] Comment on above: Order Comment: Yes: Add to Previous draw if able Performed By: #### 5 3 ####[address] ABS NEUTROPHILS 11.8 10*3/uL High 1.6-7.6 The [facility] Comment on above: Order Comment: Yes: Add to Previous draw if able Performed By: #### 5 3 ####[address] Basophils/100 WBC (Bld) 0.4 % Normal 0.0-1.0 The [facility] Comment on above: Order Comment: Yes: Add to Previous draw if able Performed By: #### 5 0103 ####[facility] [facility] Eosinophils (Bld) [#/Vol] 0.3 10*3/uL Normal 0.0-0.5 [facility] Comment on above: Order Comment: Yes: Add to Previous draw if able Performed By: #### 5 0103 ####[facility] [facility] Eosinophils/100 WBC (Bld) 2.0 % Normal 0.0-6.0 [facility] Comment on above: Order Comment: Yes: Add to Previous draw if able Performed By: #### 5 3 ####[facility] Erythrocyte distribution width (RBC) [Ratio] 14.2 % Normal 11.5-15.0 [facility] Comment on above: Order Comment: Yes: Add to Previous draw if able Performed By: #### 3 ####[facility] Hematocrit (Bld) [Volume fraction] 36.9 % Normal 36.0-45.0 [facility] Comment on above: Order Comment: Yes: Add to Previous draw if able Performed By: #### 5 3 ####[facility] [facility].[address] Hemoglobin (Bld) [Mass/Vol] 11.3 g/dL Low 12.0-15.0 [facility] Comment on above: Order Comment: Yes: Add to Previous draw if able Performed By: #### 5 3 ####[facility] [facility].[address] IMMATURE GRANS 1.3 % High 0.0-1.0 [facility] Comment on above: Order Comment: Yes: Add to Previous draw if able Performed By: #### 5 0103 ####[facility] [facility].[address] Lymphocytes (Bld) [#/Vol] 0.8 10*3/uL Low 1.2-4.0 The [facility] Comment on above: Order Comment: Yes: Add to Previous draw if able Performed By: #### 5 0103 ####[facility] [place] [address].[address] Lymphocytes/100 WBC (Bld) 5.7 % Low 20.0-45.0 [facility] Comment on above: Order Comment: Yes: Add to Previous draw if able Performed By: #### 5 0103 ####[facility] [place] [address] MCH (RBC) [Entitic mass] 27.5 pg Normal 27.0-33.0 [facility] Comment on above: Order Comment: Yes: Add to Previous draw if able Performed By: #### 5 0103 ####[facility] [place] [address] MCHC (RBC) [Mass/Vol] 30.6 g/dL Low 32.0-35.0 [facility] Comment on above: Order Comment: Yes: Add to Previous draw if able Performed By: #### 5 3 ####[facility] [place] [address].[address] MCV (RBC) [Entitic vol] 89.8 fL Normal 82.0-98.0 The [facility] Comment on above: Order Comment: Yes: Add to Previous draw if able Performed By: #### 5 0103 ####[address] Monocytes (Bld) [#/Vol] 1.1 10*3/uL High 0.1-1.0 The [facility] Comment on above: Order Comment: Yes: Add to Previous draw if able Performed By: #### 5 0103 ####[facility] [place] [address], [facility] MONOS 7.7 % Normal 5.0-12.[address] [facility] Comment on above: Order Comment: Yes: Add to Previous draw if able Performed By: #### 5 3 ####[facility] [place] [address], [facility] Neutrophils/100 WBC (Bld) 82.9 % High 40.0-72.0 [facility] Comment on above: Order Comment: Yes: Add to Previous draw if able Performed By: #### 3 ####[facility] [facility] [place] [address], [facility] Nucleated RBC/100 WBC (Bld) [Ratio] 0 % Normal 0-0 [facility] Comment on above: Order Comment: Yes: Add to Previous draw if able Performed By: #### 5 0103 ####[facility] [place] [address], [facility] PLAT CNT 386 10*3/uL Normal 150-400 [facility] Comment on above: Order Comment: Yes: Add to Previous draw if able Performed By: #### 5 102 ####[facility] [facility] [place] [address], [facility] RBC (Bld) [#/Vol] 4.11 10*6/uL Normal 3.80-5.00 The [facility] Comment on above: Order Comment: Yes: Add to Previous draw if able Performed By: #### 5 3 ####[facility] [id number], [facility] WBC (Bld) [#/Vol] 14.21 10*3/uL High 4.00-10.[address] [facility] Comment on above: Order Comment: Yes: Add to Previous draw if able Performed By: #### 5 3 ####[facility] APTTon 08-04-2020 aPTT Coag (Bld) [Time] 39.7 s High 25.0-35.0 Th e [facility] Comment on above: Order Comment: Yes: Add to Previous draw if able Result Comment: ALL RESULTS MUST BE INTERPRETED WITH RESPECT TO BLOOD DRAWING ARTIFACT OR DILUTION ERROR OF ANTICOAGULANT AT THE TIME OF SAMPLING. THE APTT SHOULD NOT BE USED TO MONITOR UNFRACTIONATED HEPARIN THERAPY, THIS LABORATORY NO LONGER HAS AN ESTABLISHED THERAPEUTIC RANGE BASED ON THE APTT. IT IS RECOMMENDED THAT THE [facility] - HEPARIN ASSAY (ANTI-XA ACTIVITY) BE USED FOR THIS PURPOSE. Performed By: #### 1 0204 #### [facility] [address] CBC W/DIFFon 08-04-2020 ABS BASOPHILS 0.0 10*3/uL Normal 0.0-0.2 The [facility] Comment on above: Order Comment: Yes: Add to Previous draw if able Performed By: #### 1 0204 #### [facility] [address] ABS IMM GRANS 0.1 10*3/uL Normal 0.0-0.2 The [facility] Comment on above: Order Comment: Yes: Add to Previous draw if able Performed By: #### 1 0204 #### [facility] [address] ABS NEUTROPHILS 13.1 10*3/uL High 1.6-7.6 The [facility] Comment on above: Order Comment: Yes: Add to Previous draw if able Performed By: #### 1 0204 #### [facility] [address] Basophils/100 WBC (Bld) 0.1 % Normal 0.0-1.0 [facility] Comment on above: Order Comment: Yes: Add to Previous draw if able Performed By: #### 1 0204 #### [facility] [address] [place] [address], [facility] Eosinophils (Bld) [#/Vol] 0.2 10*3/uL Normal 0.0-0.5 [facility] Comment on above: Order Comment: Yes: Add to Previous draw if able Performed By: #### 1 0204 #### [facility] [address] [place] [address], [facility] Eosinophils/100 WBC (Bld) 1.1 % Normal 0.0-6.0 [facility] Comment on above: Order Comment: Yes: Add to Previous draw if able Performed By: #### 1 0204 #### [facility] [address] [place] [address], [facility] Erythrocyte distribution width (RBC) [Ratio] 14.1 % Normal 11.5-15.0 [facility] Comment on above: Order Comment: Yes: Add to Previous draw if able Performed By: #### 1 0204 #### [facility] [address] [place] [address], [facility] Hematocrit (Bld) [Volume fraction] 38.0 % Normal 36.0-45.0 The [facility] Comment on above: Order Comment: Yes: Add to Previous draw if able Performed By: #### 1 0204 #### [facility] [address] [place] [address], [facility] Hemoglobin (Bld) [Mass/Vol] 11.7 g/dL Low 12.0-15.0 [facility] Comment on above: Order Comment: Yes: Add to Previous draw if able Performed By: #### 1 0204 #### [facility] [address] [place] [address], [facility] IMMATURE GRANS 0.8 % Normal 0.0-1.0 [facility] Comment on above: Order Comment: Yes: Add to Previous draw if able Performed By: #### 1 0204 #### [facility] [address] [place] [address], [facility] Lymphocytes (Bld) [#/Vol] 0.8 10*3/uL Low 1.2-4.0 The [facility] Comment on above: Order Comment: Yes: Add to Previous draw if able Performed By: #### 1 0204 #### [facility] [address] [place] [address], [facility] Lymphocytes/100 WBC (Bld) 5.1 % Low 20.0-45.0 The [facility] Comment on above: Order Comment: Yes: Add to Previous draw if able Performed By: #### 1 0204 #### [facility] [address] [place] [address], [facility] MCH (RBC) [Entitic mass] 27.5 pg Normal 27.0-33.0 The [facility] Comment on above: Order Comment: Yes: Add to Previous draw if able Performed By: #### 1 0204 #### [facility] [address] [place] [address], [facility] MCHC (RBC) [Mass/Vol] 30.8 g/dL Low 32.0-35.0 The [facility] Comment on above: Order Comment: Yes: Add to Previous draw if able Performed By: #### 1 0204 #### [facility] [address] [place] [address], [facility] MCV (RBC) [Entitic vol] 89.4 fL Normal 82.0-98.0 [facility] Comment on above: Order Comment: Yes: Add to Previous draw if able Performed By: #### 1 0204 #### [facility] [address] [place] [address], [facility] Monocytes (Bld) [#/Vol] 1.0 10*3/uL Normal 0.1-1.0 The [facility] Comment on above: Order Comment: Yes: Add to Previous draw if able Performed By: #### 1 0204 #### [facility] [address] [place] [address], [facility] MONOS 6.5 % Normal 5.0-12.0 [facility] Comment on above: Order Comment: Yes: Add to Previous draw if able Performed By: #### 1 0204 #### [facility] [address] [place] [address], [place] Neutrophils/100 WBC (Bld) 86.4 % High 40.0-72.0 The [facility] Comment on above: Order Comment: Yes: Add to Previous draw if able Performed By: #### 1 0204 #### [facility] [address] [place] [address], [facility] Nucleated RBC/100 WBC (Bld) [Ratio] 0 % Normal 0-0 [facility] Comment on above: Order Comment: Yes: Add to Previous draw if able Performed By: #### 1 4 #### [facility] [address] [place] [address], [place] PLAT CNT 394 10*3/uL Normal 150-400 [facility] Comment on above: Order Comment: Yes: Add to Previous draw if able Performed By: #### 1 0204 #### [facility] [address] [place] [address], [facility] RBC (Bld) [#/Vol] 4.25 10*6/uL Normal 3.80-5.00 The [facility] Comment on above: Order Comment: Yes: Add to Previous draw if able Performed By: #### 1 0204 #### [facility] [address] [place] [address], [place] WBC (Bld) [#/Vol] 15.11 10*3/uL High 4.00-10.60 [facility] Comment on above: Order Comment: Yes: Add to Previous draw if able Performed By: #### 1 0204 #### [facility] [address] [place] [address], [place] CT DRAINAGE RETROPERITONEALo n 01-20-2021 CT DRAINAGE RETROPERITONEAL [facility] Department of Radiology [address] [place] [address] Patient Name: JARETT KEBEDE : 1965 Sex: F Age: Race: White Pt. Location: [id number] Patient Status: I Ordered Date: 08/03/2020 6:05:00 PM Completed Date: 08/04/2020 11:57 AM Requesting Provider: NICOLE YADAV Attending Provider: TED VALDIVIA Report Copy To: Signs & Symptoms: Abscess History: See Comments Comments: Fluid Collection Exam: CT DRAINAGE RETROPERITONEAL CT DRAINAGE RETROPERITONEAL 08/04/2020 11:57 AM SIGN AND SYMPTOMS: Abscess TECHNOLOGIST COMMENTS: no fluid to drain procedure aborted QUESTION FOR RADIOLOGISTS: Fluid Collection PROTOCOL: MEDICATIONS: mg of versed and micrograms of Fentanyl were administered for conscious sedation. Vital signs were continuously monitored by nursing staff throughout the procedure. INFORMED CONSENT: Reason for procedure was discussed with the patient. The procedure expectations risks benefits options and alternatives were discussed. All the questions were answered. The patient understood that results cannot be guaranteed. The procedure is indicated and risks are acceptable. Consent was obtained. Timeout: [place] protocol timeout verification performed. PROCEDURE: Estimated blood loss: None. FINDINGS: Limited CT evaluation of the lower abdomen and pelvis was performed to localize potential possible abscess in the right lower quadrant. The acquired images revealed marked improvement and significant decrease in size of previously seen fluid collection in the study of August 03 which measures 7 x 7 cm. In the current study, there is still residual inflammatory changes in the right lower quadrant and possibly focal area of 2 x 2 CM residual collection which would be difficult to access or place a drainage catheter. Due to the significant improvement in 2 days following antibiotic therapy, the procedure was aborted and the results were discussed with the clinical service and the patient's nurse Nicole at the time of the examination. IMPRESSION: CT-guided drainage was aborted due to marked improvement and significant decrease in size of right lower quadrant abscess but residual inflammatory changes remain as described above. All CT scans at this facility use dose modulation, iterative reconstruction, and/or weight based dosing when appropriate to reduce radiation dose to as low as reasonably achievable Electronically signed: Jovani Gold. Transcribed by: [email or web address], User Resident: Electronically Signed by: JOVANI GOLD @ 08/04/2020 01:00 PM Normal [facility] Comment on above: Order Comment: Fluid Collection MRI CHEST W WO CONTRASTon MRI CHEST W WO CONTRAST [facility] Department of Radiology [address] [place] [id number] Patient Name: JARETT KEBEDE : 1965 Sex: F Age: Race: White Pt. Location: [id number] Patient Status: I Ordered Date: 08/02/2020 2:15:00 PM Completed Date: 08/04/2020 01:56 PM Requesting Provider: DERRICK RUIZ Attending Provider: TED VALDIVIA Report Copy To: Signs & Symptoms: Shortness of Breath (SOB) History: See Comments Comments: Tumor Exam: MRI CHEST W WO CONTRAST MRI CHEST W WO CONTRAST 08/04/2020 1:56 PM CLINICAL INDICATIONS: Shortness of Breath (SOB) TECHNOLOGIST COMMENTS: new lesion R cardiophrenic angle, SOB QUESTION FOR THE RADIOLOGIST: Tumor PROTOCOL: DYNAMIC LIVER: The following pulse sequences were utilized: axial and coronal T2 weighted SSFSE, axial T1 weighted 3D in and opposed phase, axial diffusion-weighted, axial T2 weighted fat saturation FSE, pre and dynamic post-contrast axial T1 weighted fat saturation 3D GRE. CONTRAST: Contrast: DOTAREM .5mmol, 20 milliliter, Intravenous COMPARISON: CT from July [address] from 2018 FINDINGS: There is ascites in the right greater than left abdomen Gallbladder looks distended The spleen is not significantly enlarged The liver looks slightly prominent There is some fatty infiltration of the liver Full detailed upper abdominal assessment is not performed There is a complex pleural-parenchymal abnormality in the periphery of the left lower chest abutting the posterior pleura. It measures around 3 cm in thickness and around 7 cm transverse. There is not significant pleural fluid There is no large pericardial effusion There is a complex cystic abnormality in the right anterior epicardial region within the epicardial fat and along the right anterior diaphragmatic region. It measures around 6 cm on cross-section. On the coronal images it has a more teardrop shaped configuration, measuring around 9 cm in length It tapers inferiorly There is some focal distortion of the fatty tissue and the cystic abnormality anterior to the liver and along the right subxiphoid region. This suggests that it may be related to ascites which has protruded into the right lower chest along a diaphragmatic hernia defect It does not appear to be bowel. It appears very superficial to the pericardium. There is a peripheral organized rim or pseudocapsule. Correlate for any abnormal labs or history of recent pancreatitis which could account for pseudocyst formation in this region Abscess or metastatic disease would be difficult to fully exclude The other left lower lobe abnormality has similar peripheral rim-like enhancement and some adjacent consolidated lung abnormality On sagittal localizer images there is no visible compression fracture or aggressive disc disease There is a large hernia defect in the abdomen with distended bowel and fluid protruding into the hernia defect On the coronal images it looks like there is a loculated fluid collection in the right periumbilical region extending toward the hernia defect There is also fluid around the stomach and pancreatic region IMPRESSION: There is suggestion of slight increase in free fluid and ascites in the abdomen including some peripancreatic fluid and some fluid accumulating near the stomach and subhepatic region extending into the hernia defect Correlate for any abnormal labs that would suggest recent acute pancreatitis Roughly 6 x 9 cm inverted teardrop shaped cystic abnormality along the right anterior diaphragmatic region and right epicardial region with peripherally enhancing rim or pseudocapsule and tapered distorted inferior margin along with the fat distortion in this region extending toward the right subxiphoid area The configuration suggests that this could be ascites fluid or pseudocyst formation protruding through a hernia defect. Abscess, metastasis, or developmental mediastinal or pericardial cyst seems less likely There is a complex organized 3 x 7 cm pleural-parenchymal abnormality with some loculated peripherally enhancing fluid in the periphery of the left lower lobe abutting the pleura and chest wall. Etiology unclear. This could be related to infection or postinflammatory change. Neoplasm is not excluded. Follow-up chest and abdomen CT surveillance is suggested to check for clearing when appropriate Electronically signed: Fredy Bennett. Transcribed by: [email or web address], User Resident: Electronically Signed by: FREDY BENNETT @ 08/04/2020 07:38 PM Normal [facility] Comment on above: Order Comment: Yes: Add to Previous draw if able PROTHROMBIN TIMEon 1 INR Coag (PPP) [Relative time] 1.40 {INR} High 0.91-1.16 [facility] Comment on above: Order Comment: Yes: Add to Previous draw if able Result Comment: ACCC P RECOMMENDED INR FOR WARFARIN THERAPY --------- ------- CONDITION INR PROPHYLAXIS OF VENOUS THROMBOSIS 2-3 (HIGH-RISK SURGERY) TREATMENT OF VENOUS THROMBOSIS 2-3 TREATMENT OF PULMONARY EMBOLISM 2-3 PREVENTION OF SYSTEMIC EMBOLISM: 2-3 ACUTE MYOCARDIAL INFARCTION TISSUE HEART VALVES VALVULAR HEART DISEASE ATRIAL FIBRILLATION RECURRENT SYSTEMIC EMBOLISM MECHANICAL HEART VALVE 2.5-3.5 FROM: ORAL ANTICOAGULANTS. MECHANISM OF ACTION, CLINICAL EFFECTIVENESS, AND OPTIMAL THERAPEUTIC RANGE. CHEST 1995;108:231S-246S. Performed By: #### 1 0204 #### [facility] [address] [place] [address], [facility] PT Coag (PPP) [Time] 17.2 s High 12.3-14.8 [facility] Comment on above: Order Comment: Yes: Add to Previous draw if able Result Comment: ALL RESULTS MUST BE INTERPRETED WITH RESPECT TO BLOOD DRAWING ARTIFACT OR DILUTION ERROR OF ANTICOAGULANT AT THE TIME OF SAMPLING. Performed By: #### 1 0204 #### [facility] [address] [facility] BASIC METABOLIC PANELon 07-16 Calcium [Mass/Vol] 7.9 mg/dL Low 8.6-10.3 [facility] Comment on above: Order Comment: No: D o not add to previous draw Performed By: #### 0 0071 ####[facility] [facility] [place] [address], [facility] Chloride [Moles/Vol] 101 mmol/L Normal 98-107 [facility] Comment on above: Order Comment: No: D o not add to previous draw Performed By: #### 0 0071 ####[facility] [facility] [place] [address], [facility] CO2 [Moles/Vol] 28 mmol/L Normal 21-31 [facility] Comment on above: Order Comment: No: D o not add to previous draw Performed By: #### 0 0071 ####[facility] [place] [address], [facility] Creatinine [Mass/Vol] 0.73 mg/dL Normal 0.60-1.20 [facility] Comment on above: Order Comment: No: D o not add to previous draw Performed By: #### 0 0071 ####[facility] [place] [address], [place] GFR/1.73 sq M predicted among blacks MDRD (S/P/Bld) [Vol rate/Area] mL/min/{1.73_m2} Normal >60 [facility] Comment on above: Order Comment: No: D o not add to previous draw Performed By: #### 0 0071 ####[facility] [place] [address], [place] GFR/1.73 sq M predicted among non-blacks MDRD (S/P/Bld) [Vol rate/Area] mL/min/{1.73_m2} Normal >60 [facility] Comment on above: Order Comment: No: D o not add to previous draw Performed By: #### 0 0071 ####[facility] [place] [address], [place] Glucose [Mass/Vol] 103 mg/dL High 70-100 [facility] Comment on above: Order Comment: No: D o not add to previous draw Performed By: #### 0 0071 ####[facility] [place] [address], [place] Potassium [Moles/Vol] 3.9 mmol/L Normal 3.5-5.1 [facility] Comment on above: Order Comment: No: D o not add to previous draw Performed By: #### 0 0071 ####[facility] [place] [address], [place] Sodium [Moles/Vol] 136 mmol/L Normal 136-145 [facility] Comment on above: Order Comment: No: D o not add to previous draw Performed By: #### 0 0071 ####[facility] [place] [address], [place] Urea nitrogen [Mass/Vol] 18 mg/dL Normal 7-25 [facility] Comment on above: Order Comment: No: D o not add to previous draw Performed By: #### 0 0071 ####[facility] [place] [address], [facility] CBC COMPLETE BLOOD COUNTon 0 - Erythrocyte distribution width (RBC) [Ratio] 13.9 % Normal 11.5-15.0 [facility] Comment on above: Order Comment: Yes: Add to Previous draw if able Performed By: #### 1 4 #### [facility] [address] [place] [address], [facility] Hematocrit (Bld) [Volume fraction] 35.9 % Low 36.0-45.0 [facility] Comment on above: Order Comment: Yes: Add to Previous draw if able Performed By: #### 1 4 #### [facility] [address] [place] [address], [facility] Hemoglobin (Bld) [Mass/Vol] 11.1 g/dL Low 12.0-15.0 [facility] Comment on above: Order Comment: Yes: Add to Previous draw if able Performed By: #### 1 4 #### [facility] [address] [place] [address], [facility] MCH (RBC) [Entitic mass] 27.5 pg Normal 27.0-33.0 [facility] Comment on above: Order Comment: Yes: Add to Previous draw if able Performed By: #### 1 0204 #### [facility] [address] [place] [id number], [facility] MCHC (RBC) [Mass/Vol] 30.9 g/dL Low 32.0-35.0 [facility] Comment on above: Order Comment: Yes: Add to Previous draw if able Performed By: #### 1 0204 #### [facility] [address] [place] [address], [facility] MCV (RBC) [Entitic vol] 88.9 fL Normal 82.0-98.0 [facility] Comment on above: Order Comment: Yes: Add to Previous draw if able Performed By: #### 1 0204 #### [facility] [address] [place] [address], [facility] Nucleated RBC/100 WBC (Bld) [Ratio] 0 % Normal 0-0 [facility] Comment on above: Order Comment: Yes: Add to Previous draw if able Performed By: #### 1 0204 #### [facility] [address] [place] [address], [facility] PLAT CNT 339 10*3/uL Normal 150-400 [facility] Comment on above: Order Comment: Yes: Add to Previous draw if able Performed By: #### 1 0204 #### [facility] [address] [place] [address], [facility] RBC (Bld) [#/Vol] 4.04 10*6/uL Normal 3.80-5.00 [facility] Comment on above: Order Comment: Yes: Add to Previous draw if able Performed By: #### 1 0204 #### [facility] [address] [place] [address], [facility] WBC (Bld) [#/Vol] 16.74 10*3/uL High 4.00-10.60 [facility] Comment on above: Order Comment: Yes: Add to Previous draw if able Performed By: #### 1 0204 #### [facility] [address] [place] [address], [facility] HISTOPLASMA AG URINE [id number] on 08-03-2020 HISTOPLASMA AG EIA, URINE Not Detected Normal [facility] Comment on above: Order Comment: No: D o not add to previous draw HISTOPLASMA AG, URINE Not Detected Normal Not Detected [facility] Comment on above: Order Comment: No: D o not add to previous draw Result Comment: INTE RPRETIVE DATA: Histoplasma Galactomannan Antigen Quantitative by EIA, Urine Less than 0.4 ng/ml = Not Detected 0.4-3.1 ng/mL = Detected (below the limit of quantification) 3.2-20.0 ng/mL = Detected Greater than 20.0 ng/mL = Detected (above the limit of quantification) The quantitative range of this assay is 3.2-20.0 ng/mL. Antigen concentrations between 0.4-3.1 or >20.0 ng/mL fall outside the linear range of the assay and cannot be accurately quantified. This EIA test should be used in conjunction with other diagnostic procedures, including microbiological culture, histological examination of biopsy samples, and/or radiographic evidence, to aid in the diagnosis of histoplasmosis. Test developed and characteristics determined by [employer]. See Compliance Statement B: [employer] Performed By: [employer] [address] [place] [id number] [employer]le Loom Weaver: Eliane Mendoza MD POC GLUCOSE LABon 08-03-2020 Glucose [Mass/Vol] 95 mg/dL Normal 70-100 [facility] Comment on above: Performed By: #### 8 [id number] #### [facility] [address] ASPERGILLUS GALACTOMANNAN 60 068on 08-02-2020 ASPERGILLUS GALACTOMANNAN ANTIGEN, SERUM Negative Normal Negative [facility] Comment on above: Order Comment: Yes: Add to Previous draw if able Result Comment: INTE RPRETIVE INFORMATION: Aspergillus Galactomannan Antigen by EIA Negative results do not exclude the diagnosis of invasive aspergillosis. A single positive test result (index equal to or greater than 0.5) should be clinically correlated by testing a separate serum specimen because many agents (e.g. foods, antibiotics) may cross-react with the test. If invasive aspergillosis is suspected in high-risk patients, serial sampling is recommended. Performed By: [employer] [address] [place] [id number] [employer] Weaver: Eliane Mendoza MD ASPERGILLUS GALACTOMANNAN INDEX 0 Normal [facility] Comment on above: Order Comment: Yes: Add to Previous draw if able BASIC METABOLIC PANELon 07-16 Calcium [Mass/Vol] 7.6 mg/dL Low 8.6-10.3 [facility] Comment on above: Order Comment: No: D o not add to previous draw Performed By: #### 0 0071 ####[facility] [place] [address], [place] Chloride [Moles/Vol] 102 mmol/L Normal 98-107 [facility] Comment on above: Order Comment: No: D o not add to previous draw Performed By: #### 0 0071 ####[facility] [place] [address], [place] CO2 [Moles/Vol] 27 mmol/L Normal 21-31 [facility] Comment on above: Order Comment: No: D o not add to previous draw Performed By: #### 0 0071 ####[facility] [place] [address], [place] Creatinine [Mass/Vol] 0.87 mg/dL Normal 0.60-1.20 [facility] Comment on above: Order Comment: No: D o not add to previous draw Performed By: #### 0 0071 ####[facility] [place] [address], [place] GFR/1.73 sq M predicted among blacks MDRD (S/P/Bld) [Vol rate/Area] mL/min/{1.73_m2} Normal >60 [facility] Comment on above: Order Comment: No: D o not add to previous draw Performed By: #### 0 0071 ####[facility] [place] [address], [place] GFR/1.73 sq M predicted among non-blacks MDRD (S/P/Bld) [Vol rate/Area] mL/min/{1.73_m2} Normal >60 [facility] Comment on above: Order Comment: No: D o not add to previous draw Performed By: #### 0 0071 ####[facility] [place] [address], [facility] Glucose [Mass/Vol] 129 mg/dL High 70-100 [facility] Comment on above: Order Comment: No: D o not add to previous draw Performed By: #### 0 0071 ####[facility] [id number], [facility] Potassium [Moles/Vol] 3.8 mmol/L Normal 3.5-5.1 [facility] Comment on above: Order Comment: No: D o not add to previous draw Performed By: #### 0 0071 ####[facility] [facility] [place] [address], [facility] Sodium [Moles/Vol] 136 mmol/L Normal 136-145 [facility] Comment on above: Order Comment: No: D o not add to previous draw Performed By: #### 0 0071 ####[facility] [facility] [place] [address], [facility] Urea nitrogen [Mass/Vol] 23 mg/dL Normal 7-25 [facility] Comment on above: Order Comment: No: D o not add to previous draw Performed By: #### 0 0071 ####[facility]3000 [facility].[address] CBC COMPLETE BLOOD COUNTon 0 - Erythrocyte distribution width (RBC) [Ratio] 13.8 % Normal 11.5-15.0 [facility] Comment on above: Order Comment: Yes: Add to Previous draw if able Performed By: #### 1 0204 #### [facility] [address] [place] [address], [facility] Hematocrit (Bld) [Volume fraction] 35.5 % Low 36.0-45.0 [facility] Comment on above: Order Comment: Yes: Add to Previous draw if able Performed By: #### 1 0204 #### [facility] [address] [place] [address], [facility] Hemoglobin (Bld) [Mass/Vol] 11.1 g/dL Low 12.0-15.0 [facility] Comment on above: Order Comment: Yes: Add to Previous draw if able Performed By: #### 1 0204 #### [facility] [address] [place] [address], [facility] MCH (RBC) [Entitic mass] 28.0 pg Normal 27.0-33.0 [facility] Comment on above: Order Comment: Yes: Add to Previous draw if able Performed By: #### 1 0204 #### [facility] [address] [facility] [address] MCHC (RBC) [Mass/Vol] 31.3 g/dL Low 32.0-35.0 [facility] Comment on above: Order Comment: Yes: Add to Previous draw if able Performed By: #### 1 0204 #### [facility] [address] [facility] [place] [address], [facility] MCV (RBC) [Entitic vol] 89.4 fL Normal 82.0-98.0 [facility] Comment on above: Order Comment: Yes: Add to Previous draw if able Performed By: #### 1 0204 #### [facility] [address] [facility] [address] Nucleated RBC/100 WBC (Bld) [Ratio] 0 % Normal 0-0 [facility] Comment on above: Order Comment: Yes: Add to Previous draw if able Performed By: #### 1 0204 #### [facility] [address] [facility] [place] [address], [facility] PLAT CNT 335 10*3/uL Normal 150-400 [facility] Comment on above: Order Comment: Yes: Add to Previous draw if able Performed By: #### 1 0204 #### [facility] [address] RBC (Bld) [#/Vol] 3.97 10*6/uL Normal 3.80-5.00 [facility] Comment on above: Order Comment: Yes: Add to Previous draw if able Performed By: #### 1 0204 #### [facility] [address] WBC (Bld) [#/Vol] 19.28 10*3/uL High 4.00-10.[address] [facility] Comment on above: Order Comment: Yes: Add to Previous draw if able Performed By: #### 1 0204 #### [facility] [address] FUNGITELL (1,9-LJPR-V-GLUCAN )on 08-02-2020 FUNGITELL (1,3 JBLL-E-UQFVBP) <[address] [facility] Comment on above: Order Comment: Yes: Add to Previous draw if able FUNGITELL INTERPRETATION Negative Normal Negative [facility] Comment on above: Order Comment: Yes: Add to Previous draw if able Result Comment: INTE RPRETIVE INFORMATION: (1,3)-hqub-E-vthiud (Fungitell) Less than 31 pg/mL ................... Negative 31-59 pg/mL .......................... Negative 60-79 pg/mL .......................... Indeterminate Greater than or equal to 80 pg/mL .... Positive The Fungitell test is indicated for presumptive diagnosis of fungal infection and should be used in conjunction with other diagnostic procedures. This test does not detect certain fungal species such as Cryptococcus, which produce very low levels of (1,3)-arzu-Y-hbceup. This test will not detect the zygomycetes, such as Absidia, Mucor, and Rhizopus, which are not known to produce (1,3)-zdxn-G-fgaqes. In addition, the yeast phase of Blastomyces dermatitidis produces little (1,3)-wxst-N-qvuxnj and may not be detected by the assay. Performed By: [employer] [address] [place] [id number] Need[employer] Loom Weaver: Eliane Mendoza MD TB QUANTIFERON PLUSon 2020 MITOGEN MINUS NIL >10.00 Normal [facility] Comment on above: Order Comment: Yes: Add to Previous draw if able Performed By: #### 3 1592 #### [facility] [address] [facility] [place] [address], [facility] NIL 0.09 IU/mL Normal [facility] Comment on above: Order Comment: Yes: Add to Previous draw if able Performed By: #### 3 1592 #### [facility] [address] TB QUANTIFERON Negative Normal NEGATIVE [facility] Comment on above: Order Comment: Yes: Add to Previous draw if able Result Comment: Erick tiferon TB Gold Interpretation (IU/mL): NEGATIVE: M. tuberculosis infection not likely. Nil: <=8.0 TB1 Antigen minus Nil (IE3PC-ZGJ): <0.35 OR >=0.35; and <25% of Nil value. TB2 Antigen minus Nil (FE4ZI-SMU): <0.35 OR >=0.35; and <25% of Nil value. Mitogen minus Nil (GAMA-NIL): >=0.50 NOTE: Diagnosing or excluding tuberculosis disease, and assessing the probability of LTBI, requires a combination of epidemiological, historical, medical, and diagnostic findings that should be taken into account when interpreting QuantiFERON (TM)-TB Gold results. See general guidance on the diagnosis and treatment of TB disease and LTBI (https://www.cdc.gov/tb/publications/guidlines/default.htm Performed By: #### 3 1592 #### [facility] [address] [facility] [place] [address], [facility] TB1 AG 0.08 IU/mL Normal [facility] Comment on above: Order Comment: Yes: Add to Previous draw if able Performed By: #### 3 1592 #### [facility] [address] [place] [address], [facility] TB1 AG MINUS NIL -0.01 IU/mL Normal [facility] Comment on above: Order Comment: Yes: Add to Previous draw if able Performed By: #### 3 1592 #### [facility] [address] [place] [address], [facility] TB2 AG 0.08 IU/mL Normal [facility] Comment on above: Order Comment: Yes: Add to Previous draw if able Performed By: #### 3 1592 #### [facility] [address] [facility] [place] [address], [facility] TB2 AG MINUS NIL -0.01 IU/mL Normal [facility] Comment on above: Order Comment: Yes: Add to Previous draw if able Performed By: #### 3 1592 #### [facility] [address] *SARS-CoV-2 COVID-19on 08-01 [id number] Not Detected Normal Not Detected [facility] Comment on above: Order Comment: No co llection time noted on specimen or requisition. The collection time recorded is the time of receipt in the lab. The Aptima SARS-CoV-2 assay is a nucleic acid amplification test intended for the qualitative detection of RNA from SARS-CoV-2 isolated and purified from nasopharyngeal (DEBURRING MACHINE OPERATOR),oropharyngeal (OP), nasal swab, sputum, and bronchoalveolar lavage (BAL) specimens from patients with signs and symptoms of infection who are suspected of COVID-19. Results are for the identification of SARS-CoV-2 RNA. The SARS-CoV-2 RNA is generally detectable during the acute phase of infection. The Aptima SARS-CoV-2 Assay on the [employer] Fusion system is intended for use by laboratory personnel specifically instructed and trained in the operation of the [employer] system. The Aptima SARS-CoV-2 assay is only for use under the Food and Drug Administration Emergency Use Authorization. Testing is limited to laboratories certified under the Clinical Laboratory Improvement Amendments of 1988 (CLIA), 42 U.S.C. ???263a, to perform high complexity tests. Not Detected: Not detected does not preclude SARS-CoV-2 infection and should not be used as the sole basis for patient management decisions. Not detected results must be combined with clinical observations, patient history, and epidemiological information. Performed By: #### 3 1792 #### [facility] [address] [facility] [place] [address], [facility] BASIC METABOLIC PANELon 07-16 Calcium [Mass/Vol] 7.6 mg/dL Low 8.6-10.3 [facility] Comment on above: Order Comment: No: D o not add to previous draw Performed By: #### 1 0070, 65174, 84460 ####[facility] [facility] [place] [address], [facility] Chloride [Moles/Vol] 103 mmol/L Normal 98-107 [facility] Comment on above: Order Comment: No: D o not add to previous draw Performed By: #### 1 0070, 26644, 97392 ####[facility] [place] [address], [facility] CO2 [Moles/Vol] 27 mmol/L Normal 21-31 [facility] Comment on above: Order Comment: No: D o not add to previous draw Performed By: #### 1 0070, 40924, 50818 ####[facility] [facility] [place] [place] [address], [facility] Creatinine [Mass/Vol] 0.85 mg/dL Normal 0.60-1.20 [facility] Comment on above: Order Comment: No: D o not add to previous draw Performed By: #### 1 0070, 15805, 85195 ####[facility] [place] [address], [facility] GFR/1.73 sq M predicted among blacks MDRD (S/P/Bld) [Vol rate/Area] mL/min/{1.73_m2} Normal >60 [facility] Comment on above: Order Comment: No: D o not add to previous draw Performed By: #### 1 0, 26758, 99247 ####[facility] [place] [address], [place] GFR/1.73 sq M predicted among non-blacks MDRD (S/P/Bld) [Vol rate/Area] mL/min/{1.73_m2} Normal >60 [facility] Comment on above: Order Comment: No: D o not add to previous draw Performed By: #### 1 0, 38193, 18677 ####[facility] [place] [address], [place] Glucose [Mass/Vol] 132 mg/dL High 70-100 [facility] Comment on above: Order Comment: No: D o not add to previous draw Performed By: #### 1 0, 50021, 38987 ####[facility] [place] [address], [place] Potassium [Moles/Vol] 3.9 mmol/L Normal 3.5-5.1 [facility] Comment on above: Order Comment: No: D o not add to previous draw Performed By: #### 1 0, 95373, 36700 ####[facility] [place] [address], [place] Sodium [Moles/Vol] 138 mmol/L Normal 136-145 [facility] Comment on above: Order Comment: No: D o not add to previous draw Performed By: #### 1 0, 61971, 82531 ####[facility] [place] [address], [place] Urea nitrogen [Mass/Vol] 19 mg/dL Normal 7-25 [facility] Comment on above: Order Comment: No: D o not add to previous draw Performed By: #### 1 0, 22307, 21525 ####[facility] C REACTIVE PROTEINon 021 CRP [Mass/Vol] 287.0 mg/L High 0.0-7.0 [facility] Comment on above: Order Comment: Yes: Add to Previous draw if able Performed By: #### 6 1405 ####[facility] CBC W/DIFFon 08-01-2020 ABS BASOPHILS 0.1 10*3/uL Normal 0.0-0.2 [facility] Comment on above: Order Comment: Yes: Add to Previous draw if able Performed By: #### 1 0204 #### [facility] [address] ABS IMM GRANS 0.1 10*3/uL Normal 0.0-0.2 [facility] Comment on above: Order Comment: Yes: Add to Previous draw if able Performed By: #### 1 0204 #### [facility] [address] [place] [address], [facility] ABS NEUTROPHILS 19.1 10*3/uL High 1.6-7.6 [facility] Comment on above: Order Comment: Yes: Add to Previous draw if able Performed By: #### 1 0204 #### [facility] [address] [place] [address], [facility] Basophils/100 WBC (Bld) 0.2 % Normal 0.0-1.0 [facility] Comment on above: Order Comment: Yes: Add to Previous draw if able Performed By: #### 1 0204 #### [facility] [address] [place] [address], [facility] Eosinophils (Bld) [#/Vol] 0.1 10*3/uL Normal 0.0-0.5 [facility] Comment on above: Order Comment: Yes: Add to Previous draw if able Performed By: #### 1 0204 #### [facility] [address] [place] [address], [facility] Eosinophils/100 WBC (Bld) 0.4 % Normal 0.0-6.0 [facility] Comment on above: Order Comment: Yes: Add to Previous draw if able Performed By: #### 1 0204 #### [facility] [address] Erythrocyte distribution width (RBC) [Ratio] 13.8 % Normal 11.5-15.0 [facility] Comment on above: Order Comment: Yes: Add to Previous draw if able Performed By: #### 1 4 #### [facility] [address] Hematocrit (Bld) [Volume fraction] 38.9 % Normal 36.0-45.0 [facility] Comment on above: Order Comment: Yes: Add to Previous draw if able Performed By: #### 1 4 #### [facility] [address] Hemoglobin (Bld) [Mass/Vol] 12.0 g/dL Normal 12.0-15.0 [facility] Comment on above: Order Comment: Yes: Add to Previous draw if able Performed By: #### 1 0204 #### [facility] [address] [place] [address], [facility] IMMATURE GRANS 0.6 % Normal 0.0-1.0 [facility] Comment on above: Order Comment: Yes: Add to Previous draw if able Performed By: #### 1 0204 #### [facility] [address] [place] [address], [facility] Lymphocytes (Bld) [#/Vol] 0.7 10*3/uL Low 1.2-4.0 [facility] Comment on above: Order Comment: Yes: Add to Previous draw if able Performed By: #### 1 0204 #### [facility] [address] [facility] [address] Lymphocytes/100 WBC (Bld) 3.2 % Low 20.0-45.0 [facility] Comment on above: Order Comment: Yes: Add to Previous draw if able Performed By: #### 1 4 #### [facility] [address] [facility] [place] [address], [facility] MCH (RBC) [Entitic mass] 27.4 pg Normal 27.0-33.0 [facility] Comment on above: Order Comment: Yes: Add to Previous draw if able Performed By: #### 1 4 #### [facility] [address] [facility] [address] MCHC (RBC) [Mass/Vol] 30.8 g/dL Low 32.0-35.0 [facility] Comment on above: Order Comment: Yes: Add to Previous draw if able Performed By: #### 1 4 #### [facility] [address] [facility] [place] [address], [facility] MCV (RBC) [Entitic vol] 88.8 fL Normal 82.0-98.0 [facility] Comment on above: Order Comment: Yes: Add to Previous draw if able Performed By: #### 1 4 #### [facility] [address] [facility] [place] [address], [facility] Monocytes (Bld) [#/Vol] 0.8 10*3/uL Normal 0.1-1.0 [facility] Comment on above: Order Comment: Yes: Add to Previous draw if able Performed By: #### 1 0204 #### [facility] [address] [facility] [place] [address], [facility] MONOS 3.9 % Low 5.0-12.0 [facility] Comment on above: Order Comment: Yes: Add to Previous draw if able Performed By: #### 1 0204 #### [facility] [address] [place] [address], [facility] Neutrophils/100 WBC (Bld) 91.7 % High 40.0-72.[address] [facility] Comment on above: Order Comment: Yes: Add to Previous draw if able Performed By: #### 1 0204 #### [facility] [address] [place] [address], [facility] Nucleated RBC/100 WBC (Bld) [Ratio] 0 % Normal 0-0 [facility] Comment on above: Order Comment: Yes: Add to Previous draw if able Performed By: #### 1 0204 #### [facility] [address] [facility] [place] [address], [facility] PLAT CNT 367 10*3/uL Normal 150-400 [facility] Comment on above: Order Comment: Yes: Add to Previous draw if able Performed By: #### 1 0204 #### [facility] [address] [place] [address], [facility] RBC (Bld) [#/Vol] 4.38 10*6/uL Normal 3.80-5.00 [facility] Comment on above: Order Comment: Yes: Add to Previous draw if able Performed By: #### 1 0204 #### [facility] [address] [facility] [place] [address], [facility] WBC (Bld) [#/Vol] 20.78 10*3/uL High 4.00-10.[address] [facility] Comment on above: Order Comment: Yes: Add to Previous draw if able Performed By: #### 1 0204 #### [facility] [address] [place] [address], [facility] CYCLIC CITRULLINATED PEPTIDE AB [id number] 08-01-2020 CYCLIC CIT PEP 224 Units High 0-19 [facility] Comment on above: Order Comment: Yes: Add to Previous draw if able Result Comment: INTE RPRETIVE INFORMATION: Cyclic Citrullinated Peptide Antibody, IgG 19 Units or less ................... Negative 20-39 Units ........................ Weak Positive 40-59 Units ........................ Moderate Positive 60 Units or greater ................ Strong Positive Anti-cyclic citrullinated peptide (anti-CCP), IgG antibodies are present in about 69-83 percent of patients with rheumatoid arthritis (RA) and have specificities of 93-95 percent. These autoantibodies may be present in the preclinical phase of disease, are associated with future RA development, and may predict radiographic joint destruction. Patients with weak positive results should be monitored and testing repeated. Performed By: [employer] [address] [place] [address] [employer] Weaver: Eliane Mendoza MD MAGNESIUM BLOODon 08-01-2020 Magnesium [Mass/Vol] 1.7 mg/dL Low 1.9-2.7 [facility] Comment on above: Order Comment: Yes: Add to Previous draw if able Performed By: #### 1 0204 #### [facility] [address] PHOSPHORUS BLOODon 1 Phosphate [Mass/Vol] 2.7 mg/dL Normal 2.5-5.0 [facility] Comment on above: Performed By: #### 1 0070, 50367, 76150 ####[facility] PROTHROMBIN TIMEon 1 INR Coag (PPP) [Relative time] 1.50 {INR} High 0.91-1.16 [facility] Comment on above: Order Comment: Yes: Add to Previous draw if able Result Comment: [facility] P RECOMMENDED INR FOR WARFARIN THERAPY --------- ------- CONDITION INR PROPHYLAXIS OF VENOUS THROMBOSIS 2-3 (HIGH-RISK SURGERY) TREATMENT OF VENOUS THROMBOSIS 2-3 TREATMENT OF PULMONARY EMBOLISM 2-3 PREVENTION OF SYSTEMIC EMBOLISM: 2-3 ACUTE MYOCARDIAL INFARCTION TISSUE HEART VALVES VALVULAR HEART DISEASE ATRIAL FIBRILLATION RECURRENT SYSTEMIC EMBOLISM MECHANICAL HEART VALVE 2.5-3.5 FROM: ORAL ANTICOAGULANTS. MECHANISM OF ACTION, CLINICAL EFFECTIVENESS, AND OPTIMAL THERAPEUTIC RANGE. CHEST 1995;108:231S-246S. Performed By: #### 5 6101 ####[facility] PT Coag (PPP) [Time] 18.1 s High 12.3-14.8 [facility] Comment on above: Order Comment: Yes: Add to Previous draw if able Result Comment: ALL RESULTS MUST BE INTERPRETED WITH RESPECT TO BLOOD DRAWING ARTIFACT OR DILUTION ERROR OF ANTICOAGULANT AT THE TIME OF SAMPLING. Performed By: #### 5 6101 ####[facility]3000 [facility].[address] RHEUMATOID FACTOR SERUMon RA 64 IU/mL High 0-20 [facility] Comment on above: Order Comment: Yes: Add to Previous draw if able Performed By: #### 1 0204 #### [facility] [address] [facility] [place] [address], [facility] SEDIMENTATION RATEon 021 SED RATE 41 mm/hr High 0-20 [facility] Comment on above: Order Comment: Yes: Add to Previous draw if able Performed By: #### 1 0206 #### [facility] [address] [facility] [place] [address], [facility] TROPONIN-Ion 08-01-2020 Troponin I.cardiac [Mass/Vol] 0.01 ng/mL Normal 0.00-0.[address] [facility] Comment on above: Order Comment: Yes: Add to Previous draw if able Result Comment: REFE RENCE RANGES: 0.00 - 0.04 ng/ml NORMAL 0.05 - 0.50 ng/ml INDETERMINATE > 0.50 ng/ml CONSISTENT WITH AN M.I. Performed By: #### 3 5200 ####[facility] LACTATE WITH REFLEXon 2020 Lactate [Moles/Vol] 0.9 mmol/L Normal 0.5-2.2 [facility] Comment on above: Performed By: #### 3 4074 ####[facility] *BLOOD CULTUREon 07-31-2020 Bacteria identified Cx Nom (Bld) Clinical Report: (D) Specimen: BLOOD CULTURE Collected: 07/31/2020 17:20 Status: Final Last Updated: 08/06/2020 15:38 (1) Prior to antibiotic administration LAC CULT RES (Final) No Growth Day [address] [facility] Comment on above: Order Comment: Prior to antibiotic administration LAC Performed By: #### 3 0313 #### [facility] [address] Bacteria identified Cx Nom (Bld) Clinical Report: (D) Specimen: BLOOD CULTURE Collected: 07/31/2020 16:20 Status: Final Last Updated: 08/06/2020 15:38 (1) Prior to antibiotic administration RFA CULT RES (Final) No Growth Day [address] [facility] Comment on above: Order Comment: Yes: Add to Previous draw if able Performed By: #### 3 5323 ####[facility] BASIC METABOLIC PANELon 07-16 Calcium [Mass/Vol] 7.7 mg/dL Low 8.6-10.3 [facility] Comment on above: Order Comment: Fluid Collection Performed By: #### 9 9909, 35644, 07306 ####[facility] [place] [address], [place] Chloride [Moles/Vol] 104 mmol/L Normal 98-107 [facility] Comment on above: Order Comment: Fluid Collection Performed By: #### 9 9909, 65967, 93746 ####[facility] [place] [address], [place] CO2 [Moles/Vol] 25 mmol/L Normal 21-31 [facility] Comment on above: Order Comment: Fluid Collection Performed By: #### 9 9909, 48073, 69222 ####[facility] [place] [address], [place] Creatinine [Mass/Vol] 0.82 mg/dL Normal 0.60-1.20 [facility] Comment on above: Order Comment: Fluid Collection Performed By: #### 9 99, 64186, 79433 ####[facility] [place] [address], [place] GFR/1.73 sq M predicted among blacks MDRD (S/P/Bld) [Vol rate/Area] mL/min/{1.73_m2} Normal >60 [facility] Comment on above: Order Comment: Fluid Collection Performed By: #### 9 99, 17347, 96497 ####[facility] [place] [address], [place] GFR/1.73 sq M predicted among non-blacks MDRD (S/P/Bld) [Vol rate/Area] mL/min/{1.73_m2} Normal >60 [facility] Comment on above: Order Comment: Fluid Collection Performed By: #### 9 9909, 97762, 08504 ####[facility] [place] [address], [place] Glucose [Mass/Vol] 159 mg/dL High 70-100 [facility] Comment on above: Order Comment: Fluid Collection Performed By: #### 9 9909, 51403, 21759 ####[facility] [place] [address], [facility] Potassium [Moles/Vol] 4.4 mmol/L Normal 3.5-5.1 [facility] Comment on above: Order Comment: Fluid Collection Performed By: #### 9 9909, 41710, 39562 ####[facility] [place] [address], [facility] Sodium [Moles/Vol] 138 mmol/L Normal 136-145 [facility] Comment on above: Order Comment: Fluid Collection Performed By: #### 9 9909, 79115, 22382 ####[facility]3000 [facility].[address] Urea nitrogen [Mass/Vol] 20 mg/dL Normal 7-25 [facility] Comment on above: Order Comment: Fluid Collection Performed By: #### 9 9909, 22440, 51078 ####[facility] [facility] [place] [place] [address], [facility] CBC W/DIFFon 07-31-2020 ABS BASOPHILS 0.0 10*3/uL Normal 0.0-0.2 [facility] Comment on above: Order Comment: Yes: Add to Previous draw if able Performed By: #### 1 0204 #### [facility] [address] [place] [address], [facility] ABS IMM GRANS 0.1 10*3/uL Normal 0.0-0.2 [facility] Comment on above: Order Comment: Yes: Add to Previous draw if able Performed By: #### 1 0204 #### [facility] [address] [place] [id number], [facility] ABS NEUTROPHILS 16.2 10*3/uL High 1.6-7.6 [facility] Comment on above: Order Comment: Yes: Add to Previous draw if able Performed By: #### 1 0204 #### [facility] [address] [place] [address], [facility] Basophils/100 WBC (Bld) 0.2 % Normal 0.0-1.0 [facility] Comment on above: Order Comment: Yes: Add to Previous draw if able Performed By: #### 1 0204 #### [facility] [address] [place] [address], [facility] Eosinophils (Bld) [#/Vol] 0.0 10*3/uL Normal 0.0-0.5 [facility] Comment on above: Order Comment: Yes: Add to Previous draw if able Performed By: #### 1 4 #### [facility] [address] [place] [address], [facility] Eosinophils/100 WBC (Bld) 0.0 % Normal 0.0-6.0 [facility] Comment on above: Order Comment: Yes: Add to Previous draw if able Performed By: #### 1 0204 #### [facility] [address] [facility] [place] [address], [facility] Erythrocyte distribution width (RBC) [Ratio] 13.5 % Normal 11.5-15.0 [facility] Comment on above: Order Comment: Yes: Add to Previous draw if able Performed By: #### 1 0204 #### [facility] [address] [facility] [place] [address], [facility] Hematocrit (Bld) [Volume fraction] 40.4 % Normal 36.0-45.0 [facility] Comment on above: Order Comment: Yes: Add to Previous draw if able Performed By: #### 1 0204 #### [facility] [address] [place] [address], [facility] Hemoglobin (Bld) [Mass/Vol] 12.9 g/dL Normal 12.0-15.0 [facility] Comment on above: Order Comment: Yes: Add to Previous draw if able Performed By: #### 1 0204 #### [facility] [address] [facility] [place] [address], [facility] IMMATURE GRANS 0.4 % Normal 0.0-1.0 [facility] Comment on above: Order Comment: Yes: Add to Previous draw if able Performed By: #### 1 0204 #### [facility] [address] [place] [address], [facility] Lymphocytes (Bld) [#/Vol] 0.8 10*3/uL Low 1.2-4.0 [facility] Comment on above: Order Comment: Yes: Add to Previous draw if able Performed By: #### 1 0204 #### [facility] [address] [facility] [address] Lymphocytes/100 WBC (Bld) 4.7 % Low 20.0-45.0 [facility] Comment on above: Order Comment: Yes: Add to Previous draw if able Performed By: #### 1 0204 #### [facility] [address] [facility] [place] [address], [facility] MCH (RBC) [Entitic mass] 28.0 pg Normal 27.0-33.0 [facility] Comment on above: Order Comment: Yes: Add to Previous draw if able Performed By: #### 1 0204 #### [facility] [address] [facility] [place] [address], [facility] MCHC (RBC) [Mass/Vol] 31.9 g/dL Low 32.0-35.0 [facility] Comment on above: Order Comment: Yes: Add to Previous draw if able Performed By: #### 1 0204 #### [facility] [address] [facility] [place] [address], [facility] MCV (RBC) [Entitic vol] 87.8 fL Normal 82.0-98.0 [facility] Comment on above: Order Comment: Yes: Add to Previous draw if able Performed By: #### 1 0204 #### [facility] [address] [place] [address], [facility] Monocytes (Bld) [#/Vol] 0.8 10*3/uL Normal 0.1-1.0 [facility] Comment on above: Order Comment: Yes: Add to Previous draw if able Performed By: #### 1 0204 #### [facility] [address] [place] [address], [facility] MONOS 4.6 % Low 5.0-12.0 [facility] Comment on above: Order Comment: Yes: Add to Previous draw if able Performed By: #### 1 4 #### [facility] [address] [facility] [place] [address], [facility] Neutrophils/100 WBC (Bld) 90.1 % High 40.0-72.0 [facility] Comment on above: Order Comment: Yes: Add to Previous draw if able Performed By: #### 1 4 #### [facility] [address] [place] [address], [facility] Nucleated RBC/100 WBC (Bld) [Ratio] 0 % Normal 0-0 [facility] Comment on above: Order Comment: Yes: Add to Previous draw if able Performed By: #### 1 4 #### [facility] [address] [facility] [place] [address], [facility] PLAT CNT 383 10*3/uL Normal 150-400 [facility] Comment on above: Order Comment: Yes: Add to Previous draw if able Performed By: #### 1 0204 #### [facility] [address] [place] [address], [facility] RBC (Bld) [#/Vol] 4.60 10*6/uL Normal 3.80-5.00 [facility] Comment on above: Order Comment: Yes: Add to Previous draw if able Performed By: #### 1 0204 #### [facility] [address] Street WBC (Bld) [#/Vol] 17.95 10*3/uL High 4.00-10.60 [facility] Comment on above: Order Comment: Yes: Add to Previous draw if able Performed By: #### 1 [id number] #### [address] ABDOMEN AND PELVIS W IV A ND ORAL CONTRASTon 07-31-2020 CT ABDOMEN AND PELVIS W IV AND ORAL CONTRAST [facility] Department of Radiology [address] [place] [id number] Patient Name: JARETT KEBEDE : 1965 Sex: F Age: Race: White Pt. Location: [facility] Patient Status: I Ordered Date: 07/31/2020 6:10:00 PM Completed Date: 07/31/2020 07:47 PM Requesting Provider: PARDEEP MCBRIDE Attending Provider: GUSTABO GARCIA Report Copy To: Signs & Symptoms: Abscess History: See Comments Comments: Other, ruq abdominal pain, h/o ileocolonic anastomosis. Rule out anastomotic leak/fistula and abcess Exam: CT ABDOMEN AND PELVIS W IV AND ORAL CONTRAST CT ABDOMEN AND PELVIS W IV AND ORAL CONTRAST 07/31/2020 7:47 PM CLINICAL INDICATION: Abscess TECHNOLOGIST COMMENTS: right sided abd pain x 2 weeks eval for infection abdnormal chest xray hx partial colectomy x2yrs ago QUESTION FOR THE RADIOLOGIST: Other, ruq abdominal pain, h/o ileocolonic anastomosis. Rule out anastomotic leak/fistula and abcess PROTOCOL: Axial CT images of the abdomen/pelvis were obtained with IV contrast. CONTRAST: TECHNIQUE: Multiple detector CT axial slices of the abdomen and pelvis were obtained with IV contrast. Multiplanar reformats were performed and viewed on a separate workstation and reviewed to further define anatomy and possible pathology. All CT scans at this facility use dose modulation, iterative reconstruction, and/or weight based dosing when appropriate to reduce radiation dose to as low as reasonably achievable COMPARISON: CT abdomen pelvis 09/23/2018 FINDINGS: There is worsening pleural parenchymal thickening at the left lung lower lobe with multiple bilateral lower lobe pulmonary nodules largest measures 1.4 cm. Finding could be sequelae of infectious or neoplastic etiology. There is 5.2 cm new right pericardiac cystic lesion. There are surgical changes of right ascending colon with extensive and diffuse inflammatory changes. There is significant circumferential mucosal wall thickening of the residual right colon with surrounding extensive mesenteric stranding suggestive. There is 7.8 x 7.0 cm localized soft tissue thickening at the right lower quadrant. This could be phlegmon or abscess. There is a small amount of ascites. There is no free peritoneal air. There is no gross bowel obstruction There is large anterior abdominal wall hernia defect through the midline which contains most of the bowel loops. There are layering gallbladder density is likely sludge with no gross bile duct dilatation. Liver parenchyma is grossly unremarkable. Spleen is grossly unremarkable. Pancreas is grossly unremarkable. Both kidneys are grossly unremarkable. Urinary bladder is adequately distended and grossly unremarkable. IMPRESSION: There is circumferential mucosal wall thickening of the residual right colon. There are prominent inflammatory changes along the right colon surgical bed with diffuse mesenteric stranding and localized area of increased density that measures 7.7 x 7 cm worrisome for abscess or phlegmon. There are worsening pleural-parenchymal opacities and pulmonary nodules at the lung bases. This could be sequelae of the infectious or neoplastic etiology. Electronically signed: Ramiro Aquino. Transcribed by: [email or web address], User Resident: RAMIRO AQUINO Electronically Signed by: RAMIRO AQUINO @ 07/31/2020 08:38 PM I personally read this/these film(s) with this resident Normal [facility] Comment on above: Order Comment: Yes: Add to Previous draw if able CT CHEST W CONTRASTon 2020 CT CHEST W CONTRAST [facility] Department of Radiology [address] [place] [address] Patient Name: JARETT KEBEDE : 1965 Sex: F Age: Race: White Pt. Location: [facility] Patient Status: I Ordered Date: 07/31/2020 6:30:00 PM Completed Date: 07/31/2020 07:47 PM Requesting Provider: PARDEEP MCBRIDE Attending Provider: GUSTABO GARCIA Report Copy To: Signs & Symptoms: Emphysema History: See Comments Comments: Mass (Lesion) Exam: CT CHEST W CONTRAST CT CHEST W CONTRAST 07/31/2020 7:47 PM CLINICAL INDICATIONS: Emphysema TECHNOLOGIST COMMENTS: right sided abd pain x 2 weeks eval for infection abdnormal chest xray hx partial colectomy x2yrs ago QUESTIONS PER RADIOLOGIST: Mass (Lesion) PROTOCOL: Axial CT images of the chest were obtained with IV contrast. CONTRAST: Contrast: OMNIPAQUE 350 (LOCM), 100 milliliter, Intravenous TECHNIQUE: Multidetector CT axial slices of the chest were obtained with IV contrast. Multiplanar reformats were performed and viewed on a separate workstation and reviewed to further define anatomy and possible pathology. All CT scans at this facility use dose modulation, iterative reconstruction, and/or weight based dosing when appropriate to reduce radiation dose to as low as reasonably achievable. COMPARISON: Chest CT 01/21/[address] abdomen pelvis 09/23/2018. FINDINGS: Neck base is grossly unremarkable. Thoracic aorta is grossly unremarkable. There is moderate degree of coronary artery calcification. There is no cardiomegaly or pericardial effusion. Central pulmonary tree is grossly unremarkable. There are few mediastinal lymph nodes. None of which is grossly pathological by size criteria. There is interval development of localized soft tissue density at the right cardiophrenic angle. Measures 5.2 cm in diameter with fluid density. This could represent benign or malignant process. There is significant worsening with interval increase in size of the pleural-parenchymal soft tissue thickening at the left lower lobe which currently measures 6.4 x 2.9 cm. This is associated with multiple left lower lobe pulmonary nodules with minimal cavitary changes. Finding could be sequelae of neoplastic or chronic infectious process. There is 1.4 cm right basal nodular. This is nonspecific and could be attributed to same disease process versus atelectasis. An 8 mm right lower lobe nodule with central lucency is present likely related to same disease process. Osseous exam is grossly unremarkable. There is chronic elevation of the right diaphragm IMPRESSION: There is worsening left pleural base pleural-parenchymal opacity with similar findings present and 2019 and 2017 exams. This is associated with multiple bilateral lower lobe pulmonary nodules. Findings could be sequelae of chronic infectious, inflammatory or neoplastic etiology. There is new cystic lesion at the right cardiophrenic angle which measures 5.2 cm. This could be sequelae of benign process like pericardial cyst or malignant process. There is no gross pathological mediastinal adenopathy by size criteria. Electronically signed: Ramiro Aquino. Transcribed by: [email or web address], User Resident: RAMIRO AQUINO Electronically Signed by: RAMIRO AQUINO @ 07/31/2020 08:21 PM I personally read this/these film(s) with this resident Normal [facility] Comment on above: Order Comment: Yes: Add to Previous draw if able LIPASE BLOODon 07-31-2020 Lipase [Catalytic activity/Vol] U/L Low 11-82 [facility] Comment on above: Order Comment: Fluid Collection Performed By: #### 9 [id number], [id number], [id number] ####[facility] LIVER BATTERYon 07-31-2020 Albumin [Mass/Vol] 2.6 g/dL Low 3.5-5.7 [facility] Comment on above: Order Comment: Fluid Collection Performed By: #### 9 [id number], 50062, 23715 ####[facility] [place] [address], [place] ALKALINE PHOSPH 56 IU/L Normal 34-104 [facility] Comment on above: Order Comment: Fluid Collection Performed By: #### 9 9909, 65825, 65177 ####[facility] [place] [address], [place] ALT [Catalytic activity/Vol] 13 U/L Normal 7-52 [facility] Comment on above: Order Comment: Fluid Collection Performed By: #### 9 [id number], [id number], 54811 ####[facility] [place] [address], [place] AST [Catalytic activity/Vol] 13 U/L Normal 13-39 [facility] Comment on above: Order Comment: Fluid Collection Performed By: #### 9 9909, 92358, 44927 ####[facility] [place] [address], [place] Bilirubin [Mass/Vol] 0.6 mg/dL Normal 0.3-1.0 [facility] Comment on above: Order Comment: Fluid Collection Performed By: #### 9 9909, 32467, 88584 ####[facility] [place] [address], [place] Bilirubin.direct [Mass/Vol] 0.1 mg/dL Normal 0.0-0.2 [facility] Comment on above: Order Comment: Fluid Collection Performed By: #### 9 9909, 79335, 16279 ####[facility] [place] [address], [place] Protein [Mass/Vol] 6.0 g/dL Normal 6.0-8.3 [facility] Comment on above: Order Comment: Fluid Collection Performed By: #### 9 9909, 44179, 09604 ####[place] [id number] Vital Signs Date Time Vital Sign Value Performing Clinician Facility 01-10-2022 15:53-0400 Blood Pressure Location Jeremias DAVISON [facility] 01-10-2022 15:53-0400 Body temperature 97.52 [degF] Jeremias DAVISON [facility] 01-10-2022 15:53-0400 Diastolic blood pressure 84 mm[Hg] Jeremias DAVISON [facility] 01-10-2022 15:53-0400 Heart rate 70 /min Jeremias DAVISON [facility] 01-10-2022 15:53-0400 SaO2% (BldA) [Mass fraction] 95 % Jeremias DAVISON [facility] 01-10-2022 15:53-0400 Systolic blood pressure 144 mm[Hg] Jeremias DAVISON [facility] 09-01-2021 15:15-0500 Body temperature 98 [degF] Albin Bruno Other [employer] Other 09-01-2021 15:15-0500 Diastolic blood pressure 78 mm[Hg] Albin Bruno Other [employer] Other 09-01-2021 15:15-0500 Systolic blood pressure 123 mm[Hg] Albin Bruno Other [facility] [employer] Other Encounters Encounter Date Encounter Type Care Provider Facility Start: 05-30-2023 End: 05-31-2023 ambulatory Ann Oro Facility:[facility] Jackie campos Start: 05-22-2023 End: 05-23-2023 ambulatory Ann L Preethi Facility:[facility] Jackie andres Start: 05-15-2023 ambulatory Jeremias DAVISON Facility: [facility] Marina Start: 11-29-2022 End: 11-30-2022 ambulatory Jeremias DAVISON [facility] Start: 11-29-2022 End: 11-30-2022 ambulatory Jeremias DAVISON Facility:[facility] Start: 11-23-2022 End: 11-24-[address] JEREMIAS DAVISON Facility: Start: 10-05-2022 End: 10-06-[address] JEREMIAS DAVISON Facility:[facility] Start: 09-11-2022 End: 09-12-[address] JEREMIAS DAVISON Facility:[facility] Start: 08-17-2022 End: 08-18-[address] DOCTOR ULLOA Facility:[facility] Start: 08-14-2022 End: 08-15-[address] JEREMIAS DAVISON Facility:[facility] Start: 07-18-2022 End: 07-19-[address] JEREMIAS DAVISON Facility:[facility] Start: 06-05-2022 End: 06-06-[address] JEREMIAS DAVISON Facility:[facility] Start: 05-22-2022 End: 05-23-[address] JEREMIAS DAVISON Facility:[facility] Start: 04-17-2022 End: 04-18-[address] JEREMIAS DAVISON Facility:[facility] Start: 03-27-2022 End: 03-28-[address] JEREMIAS DAVISON Facility:[facility] Start: 03-07-2022 End: 03-08-[address] JEREMIAS DAVISON Facility:[facility] Start: 02-09-2022 End: 02-10-[address] JEREMIAS DAVISON Facility:[facility] Start: 02-02-2022 End: 02-03-[address] JEREMIAS DAVISON Facility:[facility] Start: 01-12-2022 End: 01-12-2022 Patient encounter procedure MD Shay Baldwin Work Phone: [facility] [address] Start: 01-10-2022 End: 01-10-2022 Patient encounter procedure Jeremias DAVISON [facility] Start: 12-26-2021 End: 12-26-2021 Patient encounter procedure Jeremias DAVISON [facility] Start: 12-07-2021 End: 12-08-[address] JEREMIAS DAVISON Facility: Start: 09-08-2021 End: 09-08-2021 ambulatory Albin Bruno Other [employer] Other Start: 09-08-2021 Telephone encounter Albin Bruno [facility] Start: 09-01-2021 End: 09-01-2021 ambulatory Albin Bruno Other [employer] Other Start: 09-01-2021 Office outpatient ne w 45 minutes Albin Bruno [facility] Start: 07-31-2020 End: 08-07-2020 Evaluation and management of inpatient [place] Facility:[facility] [[email or web address] Procedures Date Procedure Procedure Detail Performing Clinician Start: 08-04-2020 DRAINAGE OF RETROPERITONEUM, PERCUTANEOUS APPROACH, DIAGN JOVANI GOLD Start: 07-16-1999 Hysterectomy Jeremias ENRIQUE Colon part (body structure) Jeremias DAVISON Ileostomy operation Jeremias DAVISON Adrian hobson, device (physical object) Jeremias DAVISON Payers Date Payer Category Payer Unknown [id number] 2.16.8 [id number] 1965 Unknown [id number] 2.16.84 0.1.695183.3.579.2.593 1965 Unknown [id number] 2.16.84 0.1.825712.3.579.2.593 1965 Unknown [id number] 2.16.84 0.1.392437.3.579.2.593 1965 Unknown [id number] 2.16.84 0.1.177491.3.579.2.593 1965 Unknown [id number] 2.16.84 0.1.017907.3.579.2.593 1965 Unknown [id number] 2.16.84 0.1.464220.3.579.2.593 1965 Unknown [id number] 2.16.84 0.1.419015.3.579.2.593 1965 Unknown [id number] 2.16.84 0.1.283526.3.579.2.593 1965 Unknown [id number] 2.16.84 0.1.006117.3.579.2.593 1965 Unknown [id number] 2.16.84 0.1.141349.3.579.2.593 1965 Unknown [id number] 2.16.84 0.1.938439.3.579.2.593 1965 Unknown [id number] 2.16.84 0.1.664397.3.579.2.593 1965 Unknown [id number] 2.16.84 0.1.800209.3.579.2.593 1965 Unknown [id number] 2.16.84 0.1.718503.3.579.2.593 1965 Unknown [id number] 2.16.8 40.1.839117.3.579.2.727 1965 Unknown [id number] 2.16.8 40.1.364144.3.579.2.727 1965 Unknown [id number] 2.16.8 40.1.149302.3.579.2.727 1965 Unknown [id number] 2.16.8 40.1.852843.3.579.2.727 1965 Unknown [id number] 2.16.8 40.1.036581.3.579.2.727 1961 Medicaid [id number] 1961 Medicare [id number] 1961 Medicare [id number] Medicare Medicare Outpatient [id number] Self-pay Self Pay [id number] Social History Date Type Detail Facility Tobacco Unknown if ever smoked [employer] [facility] [employer] Other Comment on above: denies Sex Assigned At Female [employer] Other Start: 11-27-2018 Tobacco smoking status Ex-smoker (fi nding) [facility] Tobacco smoking status Never [facility] Start: 1965 Sex Assigned At Female F [facility] Functional Status Date Assessment Result Facility 01-10-2022 Functional Status N/A [facility] Evaluation note 09-01-2021 Note Date & Type Note Facility 09-01-2021 Evaluation note Encounter Date Diagnosis Assessment Notes Aug, Non-healing wound of left lower extremity (ICD-10 - S81.802A) This is the first time I have seen this patient but I have been involved in her care over the last week and a half. Trying to arrange outpatient IV antibiotics was difficult but we ultimately did get a midline but before the IV antibiotics were able to be started in her home she ended up in the hospital for 24 hours. In reviewing cultures that were sent to me taken from July 21 it appears Enterobacter has grown in addition to MSSA and Enterococcus faecalis. She tells me she is pleased with how her right lower extremity infection is doing on the ceftriaxone. Therefore would plan to continue this as ordered. This was initially ordered for 3 weeks but obviously if there is significant improvement after 2 can always consider stopping the antibiotic early. She is not having any side effects from this an antibiotic given that its intravenous. She is not having any diarrhea fevers or chills. She has a wound VAC on the right lower extremity without any recent pictures for me to review. I gave her my email address to have the wound nurse send me a couple pictures of her wound recently. I will see her in 2 weeks and that day she will show up with a wet-to-dry dressing in place we can further evaluate the wound. At that time we will determine if she needs a full 3 weeks or if it can be stopped at 2. 17 Aug, 2021 Receiving intravenous antibiotic treatment at home (ICD-10 - Z79.2) [employer] Other Evaluation + Plan note Radiology Note Date & Type Note Facility Evaluation + Plan note Future Appointments Appointment Date:01/10/2022 04:00:00 PM Scheduled Provider:Jeremias DAVISON DO Location:[facility] Appointment Type:FM Open Future Scheduled TestsXR Abdomen 1 View 09/21/21 [facility] Evaluation + Plan note Radiology Note Date & Type Note Facility Evaluation + Plan note Future Appointments Appointment Date:02/20/2022 03:30:00 PM Scheduled Provider: Location:[facility] Appointment Type:FM Medicare Wellness Subsequent Future Scheduled TestsXR Abdomen 1 View 09/21/21 [facility] Evaluation note Note Date & Type Note Facility Evaluation note No Information [employer] Other Evaluation note Note Date & Type Note Facility Evaluation note No assessment information availa [facility] Work Phone: History general Narrative - Reported Note Date & Type Note Facility History general Narrative - Reported Type Surgical History hysterectomy Surgical History partial colon remova l and reversal of colostomy Surgical History appendectomy [employer] Other Hospital course Narrative Note Date & Type Note Facility Hospital course Narrative No data available for this section [facility] Hospital Discharge instructions Note Date & Type Note Facility Hospital Discharge instructions No data available for this section [facility] Progress note Note Date & Type Note Facility Progress note No data available for this section [facility] Summary Purpose Family History No Family History Records FoundNo Family History Records FoundNo Family History Records FoundNo Family History Records Found Advance Directives No Advanced Directives Records Found Advance Directive Response Recorded Date/ Time Advance Directives No March 2:54pm Hospital Course Note MR#: [id number] [facility] Pt. Name: Jarett Kebede Admitted: 07/31/2020 Discharged: 08/07/2020 Date of : 1965 Physician: Ted Valdivia MD DISCHARGE SUMMARY DIAGNOSIS AT ADMISSION: Right lower quadrant abdominal pain, possibility of abscess. DIAGNOSES ON DISCHARGE: 1. Right lower quadrant abscess/inflammatory phlegm, improving. 2. Hypertension, controlled. 3. Rheumatoid arthritis. 4. Pericardial/anterior mediastinal growth. 5. Bilateral pleural/parenchymal opacity, possible rheumatoid nodules. 6. Possible obstructive sleep apnea. 7. Sigmoid resection for ileocolonic resection. HOSPITAL COURSE: This is a 54-year-old female who came to the hospital because of the worsening abdominal pain along with nausea and vomiting. CT scan showed inflammatory phlegm with a possibility of abscess and fluid collection. The patient was started on broad-spectrum antibiotics. General Surgery was consulted along with the IR. General Surgery initially recommended (more content not included)... Chief Complaint and Reason for Visit Chief Complaint M05.79 M15.0 Z79.899 Additional Source Comments INFORMATION SOURCE (unrecogn ized section and content) DATE CREATED AUTHOR 08/09/2020 [facility] DATE CREATED AUTHOR AUTHOR'S ORGANIZ ATION 01/24/2022 [facility] DATE CREATED AUTHOR AUTHOR'S ORGANIZ ATION 11/28/2022 [facility] DATE CREATED AUTHOR AUTHOR'S ORGANIZ ATION 06/14/2023 [facility] Care Team (unrecognized sect ion and content) Team Status: Inactive Member Role Status Dates Shay Baldwin MD Primary Care Provider, Attending Prov ider Active Team Status: Active Member Role Status Dates Shay Baldwin MD Primary Care Provider Active REASON FOR VISIT (unrecogniz ed section and content) IV TREATMENTNo Information Goals (unrecognized section and content) Goals may be documented in a n alternate section FOR RECORDS PERTAINING TO PATIENTS WHO ARE OR HAVE BEEN ENROLLED IN A CHEMICAL DEPENDENCY/SUBSTANCEABUSE PROGRAM, SOME INFORMATION MAY BE OMITTED. This clinical summary was aggregated from multiple sources. Caution should be exercised in using it in the provision of clinical care. This summary normalizes information from multiple sources, and as a consequence, information in this document may materially change the coding, format and clinical context of patient data. In addition, data may be omitted in some cases. CLINICAL DECISIONS SHOULD BE BASED ON THE PRIMARY CLINICAL RECORDS. [employer] [facility]. provides no warranty or guarantee of the accuracy or completeness of information in this document.
--- NOTE | 2023-07-12 09:12 | XR_ITS ---
[address] [address] Patient Name: JARETT KEBEDE MRN: [id number] date: 1965 Sex: F Assigned Patient Location: [facility] Current Patient Location: Accession/Order Number: [id number] Exam Date: 07/12/2023 09:20 Report Date: 07/13/2023 07:44 At the request of: SHAHEEN VERONICA Procedure: XR foot PAULINE min 3V EXAMINATION: XR foot PAULINE min 3V HISTORY: Foot Pain, Rheumatoid Arthritis COMPARISON: XR foot right 07/04/2021 FINDINGS: RIGHT FINDINGS: BONES: Mild degenerative changes the first metatarsophalangeal joint. Small calcaneal plantar spur and prominent degenerative enthesophyte at the Achilles tendon insertion into the calcaneus. SOFT TISSUES: No visible soft tissue swelling. OTHER: Negative. LEFT FINDINGS: BONES: Moderate degenerative changes the first metatarsophalangeal joint. Flattening of plantar arch. Small calcaneal plantar spur and prominent degenerative enthesophyte at Achilles tendon insertion into the calcaneus. SOFT TISSUES: No visible soft tissue swelling. OTHER: Negative. XR/XR foot PAULINE min 3V IMPRESSION: RIGHT CONCLUSION: 1. Mild degenerative changes. No acute or suspicious abnormality. LEFT CONCLUSION: 1. Mild degenerative changes. 2. Pes planus. Electronically authenticated by: MERYL RUBY Date: 07/13/2023 07:44
== END 2023-07-12 09:06 | disposition home or self-care (01) ==
LOC: RAD 09:05
PROVIDERS: PCP Family Medicine; Visit Provider Registered Nurse
DX: M06.9 Rheumatoid arthritis, unspecified (principal); M25.572 Pain in left ankle and joints of left foot; M25.571 Pain in right ankle and joints of right foot
CPT/HCPCS: 73630

== ENCOUNTER 2023-10-01 15:20 | Outpatient (OUT) | payer MEDICARE, MEDICAID, SELFPAY ==
--- NOTE | 2023-10-01 | XR_ITS ---
The [address] [address] Patient Name: JARETT KEBEDE MRN: [id number] date: 1965 Sex: F Assigned Patient Location: Current Patient Location: LAB Accession/Order Number: [id number] Exam Date: 10/01/2023 15:25 Report Date: 10/02/2023 11:15 At the request of: NEEL LANDEROS Procedure: XR foot RT min 3V PROCEDURE: XR foot RT min 3V, XR ankle RT min 3V COMPARISON: 07/12/2023 HISTORY: RIGHT FOOT PAIN FINDINGS: BONES:No acute fracture or dislocation of the foot or ankle. Moderate bulky enthesopathic spurring of the calcaneus at the Achilles and plantar insertions. SOFT TISSUES:Moderate diffuse ankle and foot swelling most significant along the dorsal and lateral foot and lateral ankle EFFUSION:None visible. OTHER: Vascular calcifications XR/XR foot RT min 3V IMPRESSION: Soft tissue swelling No acute fracture Electronically authenticated by: RICHIE TERRY Date: 10/02/2023 11:15
--- NOTE | 2023-10-01 | XR_ITS ---
The [address] [address] Patient Name: JARETT KEBEDE MRN: [id number] date: 1965 Sex: F Assigned Patient Location: Current Patient Location: LAB Accession/Order Number: [id number] Exam Date: 10/01/2023 15:25 Report Date: 10/02/2023 11:15 At the request of: NEEL LANDEROS Procedure: XR ankle RT min 3V PROCEDURE: XR foot RT min 3V, XR ankle RT min 3V COMPARISON: 07/12/2023 HISTORY: RIGHT FOOT PAIN FINDINGS: BONES:No acute fracture or dislocation of the foot or ankle. Moderate bulky enthesopathic spurring of the calcaneus at the Achilles and plantar insertions. SOFT TISSUES:Moderate diffuse ankle and foot swelling most significant along the dorsal and lateral foot and lateral ankle EFFUSION:None visible. OTHER: Vascular calcifications XR/XR ankle RT min 3V IMPRESSION: Soft tissue swelling No acute fracture Electronically authenticated by: RICHIE TERRY Date: 10/02/2023 11:15
== END 2023-10-01 15:21 | disposition home or self-care (01) ==
LOC: WC 15:20
PROVIDERS: PCP Family Medicine; Visit Provider Physician Assistant
DX: M79.671 Pain in right foot (principal); M25.571 Pain in right ankle and joints of right foot; M25.474 Effusion, right foot; M25.471 Effusion, right ankle
CPT/HCPCS: 73610; 73630

== ENCOUNTER 2023-10-01 16:21 | Outpatient (OUT) | payer MEDICARE, MEDICAID, SELFPAY ==
[2023-10-01 17:16] LABS: Basophils Absolute Auto 0.1 10^3/uL (0.0-0.1); Basophils Percent Auto 0.6 % (0.2-2.0); Eosinophils Absolute Auto 0.1 10^3/uL (0.0-0.7); Eosinophils Percent Auto 1.2 % (0.9-7.0); Hemoglobin 14.6 g/dL (12.0-16.0); Immature Granulocytes Abs Auto 0.05 10^3/uL (0.00-0.03); Immature Granulocytes Pct Auto 0.5 % (0.0-0.5); Lymphocytes Absolute Auto 1.9 10^3/uL (1.2-3.8); Lymphocytes Percent Auto 19.1 % (20.5-60.0); Mean Corpuscular HGB Conc 31.1 g/dL (29.9-35.2); Mean Corpuscular Hemoglobin 28.1 pg (26.7-34.0); Mean Corpuscular Volume 90.6 fL (81.0-99.0); Mean Platelet Volume 9.9 fL (9.5-13.5); Monocytes Absolute Auto 0.7 10^3/uL (0.3-0.8); Monocytes Percent Auto 6.7 % (1.7-12.0); Neutrophils Absolute Auto 7.3 10^3/uL (1.4-6.5); Neutrophils Percent Auto 71.9 % (43.0-75.0); Platelet Count 349 10^3/uL (150-450); Red Blood Count 5.19 10^6/uL (4.20-5.40); Red Cell Distribution Width 14.4 % (11.0-15.0); White Blood Count 10.1 10^3/uL (4.0-11.0)
[2023-10-01 17:49] LABS: C Reactive Protein 6.26 mg/dL (<=0.50)
[2023-10-01 18:35] LABS: Erythrocyte Sedimentation Rate >130 mm/hr (<=30)
== END 2023-10-01 16:22 | disposition home or self-care (01) ==
LOC: LAB 16:24
PROVIDERS: PCP Family Medicine; Visit Provider Physician Assistant
DX: M86.8X7 Other osteomyelitis, ankle and foot (principal)
CPT/HCPCS: 36415; 80048; 85025; 85652; 86140

== ENCOUNTER 2023-10-01 16:28 | Outpatient (OUT) | payer MEDICARE, MEDICAID, SELFPAY ==
[2023-10-01 17:52] LABS: Alanine Aminotransferase 17 U/L (14-59); Albumin Globulin Ratio 0.6; Albumin Level 2.8 g/dL (3.4-5.0); Alkaline Phosphatase 73 U/L (46-116); Anion Gap 12.3; Aspartate Amino Transferase 21 U/L (15-37); BUN Creatinine Ratio 25.4; Bilirubin Total 0.4 mg/dL (0.2-1.0); Calcium 9.4 mg/dL (8.5-10.1); Carbon Dioxide 31.8 mmol/L (21.0-32.0); Chloride 98 mmol/L (98-107); Estimated GFR (African America >60 (>=60); Estimated GFR (Non-African Ame >60 (>=60); Globulin 4.9 g/dL; Glucose 109 mg/dL (74-106); Potassium 4.1 mmol/L (3.5-5.1); Sodium 138 mmol/L (136-145); Total Protein 7.7 g/dL (6.4-8.2)
== END 2023-10-01 16:29 | disposition home or self-care (01) ==
LOC: LAB 16:30
PROVIDERS: PCP Family Medicine; Visit Provider Registered Nurse
DX: M86.8X7 Other osteomyelitis, ankle and foot (principal); M05.79 Rheumatoid arthritis with rheumatoid factor of multiple sites without organ or systems involvement; M15.0 Primary generalized (osteo)arthritis; Z79.899 Other long term (current) drug therapy
CPT/HCPCS: 36415; 80053; 84550; 85025; 85652; 86140

== ENCOUNTER 2023-10-04 14:56 | Outpatient (OUT) | payer MEDICARE, MEDICAID, SELFPAY ==
--- NOTE | 2023-10-04 14:58 | MR_ITS ---
The [address] [address] Patient Name: JARETT KEBEDE MRN: [id number] date: 1965 Sex: F Assigned Patient Location: MRI Current Patient Location: Accession/Order Number: [id number] Exam Date: 10/04/2023 15:15 Report Date: 10/05/2023 07:40 At the request of: BRANDY LANDEROS Procedure: MR ankle RT wo con HISTORY: The patient has an ulcer along the lateral aspect of the right foot near the cuboid. Evaluate for osteomyelitis. MR ankle RT wo con: 10/04/2023 3:15 PM EDT COMPARISON: CT scan right lower extremity 08/17/2021 and radiographs right foot 10/01/2023. TECHNIQUE: Multiplanar, multisequence MRI images of the right ankle were obtained without contrast. FINDINGS: A few images are slightly degraded by motion artifact. The major ligaments of the ankle appear grossly intact. There is no osteochondral defect of the tibiotalar joint. There are moderate to severe degenerative changes again seen of the posterior subtalar joint. There are calcaneal enthesophytes again seen. There are mild degenerative changes again seen of the talonavicular joint. 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 There is also a large ovoid ossific focus again seen along the dorsolateral aspect of this coalition. There are severe degenerative changes of the fourth and fifth tarsometatarsal joints. Since the prior CT scan there has been development of subchondral erosive change and abnormal decreased T1 and increased STIR signal intensity involving the bone marrow of the base of the fourth and fifth metatarsals and the distal and lateral aspect of the cuboid. There is a moderate-sized soft tissue ulcer along the lateral aspect of the cuboid and the base of the fifth metatarsal in this region. Underlying this ulcer is a multiloculated fluid signal intensity collection measuring 1.1 x 2.2 x 3.1 cm in transverse, craniocaudal and AP dimension respectively. MR/MR ankle RT wo con IMPRESSION: 1. There is a soft tissue ulcer along the lateral aspect of the foot at the level of the cuboid and base of the fifth metatarsal with an underlying soft tissue abscess in this region. There is also evidence of development of osteomyelitis involving the base of the fourth and fifth metatarsals and the cuboid in this region and there has been progression of severe degenerative and erosive changes of the fourth and fifth tarsometatarsal joints concerning for an underlying infection of these joints. 2. 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 This report was placed in the wet read folder to be faxed and called to the referring clinician's office (Brandy Landeros) on the morning of 10/05/2023 shortly after the study was presented for interpretation. Electronically authenticated by: SAROJ FLAHERTY Date: 10/05/2023 07:40
== END 2023-10-04 14:57 | disposition home or self-care (01) ==
LOC: MRI 14:56
PROVIDERS: PCP Family Medicine; Visit Provider Physician Assistant
DX: M86.8X7 Other osteomyelitis, ankle and foot (principal)
CPT/HCPCS: 73721

== ENCOUNTER 2023-11-07 13:30 | Outpatient (OUT) | payer MEDICARE, MEDICAID, SELFPAY ==
--- NOTE | 2023-11-07 13:37 | ECG_ITS ---
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
--- OUTSIDE RECORDS SUMMARY | 2023-11-07 13:50 | XMS_ITS | CCD ---
Author Organization [facility] Care Team Providers Care Paper Twister Tender Name Role Phone [place] Procedure Practitioner Unavailab JEREMIAS Everett Primary Care Unavailable JOVANI GOLD Surgeon Unavailable TED VALDIVIA Attending Unavailable TED VALDIVIA Admitting Unavailable SELF, REFERRED Referring Unavailable Jeremias DAVISON Primary Care Physician [phone] Albin Bruno Unavailable MD Shay Baldwin Primary Care Provider [phone] MD Shay Baldwin Attending Provider SAMAN, DR JEREMIAS Moralez Primary Care Unavailable SUNSHINE BRYSON Attending Unavailable SUNSHINE BRYSON Admitting Unavailable SAMAN, DR JEREMIAS Moralez Primary Care Unavailable SUNSHINE BRYSON Attending Unavailable SUNSHINE BRYSON Admitting Unavailable SAMAN, DR JEREMIAS Moralez Primary Care Unavailable SUNSHINE BRYSON Attending Unavailable SUNSHINE BRYSON Admitting Unavailable SAMAN, DR JEREMIAS Moralez Primary Care Unavailable THAI .PEPE Attending Unavaila dinah ANDRE .PEPE Admitting Unavaila dinah DAVISON, DR JEREMIAS Moralez Primary Care Unavailable SUNSHINE BRYSON Attending Unavailable SUNSHINE BRYSON Admitting Unavailable SAMAN, DR JEREMIAS Moralez Primary Care Unavailable SUNSHINE BRYSON Attending Unavailable SUNSHINE BRYSON Admitting Unavailable SAMAN, DR JEREMIAS Morlaez Primary Care Unavailable SUNSHINE BRYSON Attending Unavailable [...] SAMAN, DR JEREMIAS Moralez Primary Care Unavailable NEEL YADAV Attending Unavailable NEEL YADAV Admitting Unavailable SAMAN, DR JEREMIAS Moralez Primary Care Unavailable KAREN, SUNSHINE Vidal Attending Unavailable KAREN, SUNSHINE Vidal Admitting Unavailable SAMAN, DR JEREMIAS Moralez Primary Care Unavailable HIGHLERNIE, SUNSHINE Vidal Attending Unavailable HIGHLERNIE, SUNSHINE Vidal Admitting Unavailable SAMAN, DR JEREMIAS Moralez Primary Care Unavailable KAREN, SUNSHINE Vidal Attending Unavailable KAREN, SUNSHINE Vidal Admitting Unavailable SAMAN, Jeremias Moralez Attending Unavailable Preethi, CANDACE Worrell Attending Unavailable Preethi, CANDACE Worrell Attending Unavailable SAMAN, Jeremias Moralez Attending Unavailable SAMAN, Jeremias Moralez Admitting Unavailable Allergies Allergy Classification Reported Allergen(s) Allergy Type Date of Onset Reaction(s) Facility (5 sources) Amoxicillin / Clavulanate; Translations: [AUGMENTIN] Drug Allergy 09-05-19 19 Illness (finding) [facility] (4 sources) Calcium Channel Blockers; Translations: [calcium channel blockers] Drug allergy (disorder) 05-27-20 18 tachycardia [facility] (4 sources) Contrast media; Translations: [red dye] Food allergy (disorder) 01-20-20 17 insomnia [facility] (1 source) dilTIAZem; Translations: [DILTIAZEM HCL] Drug Allergy 09-12-19 19 [facility] (4 sources) Latex; Translations: [LATEX] Propensity to adverse reactions (disorder) 05-31-20 17 Unknown [facility] (4 sources) Sulfamethoxazole / Trimethoprim; Translations: [Bactrim] Drug Allergy 05-08-20 18 [facility] (4 sources) Vancomycin; Translations: [vancomycin] Drug Allergy 05-08-20 18 [facility] (4 sources) Sulfamethoxazole / Trimethoprim; Translations: [sulfamethoxazole-t rimethoprim] Drug Allergy bloody stool, Unknown [facility] Other (4 sources) Vancomycin; Translations: [vancomycin] Drug Allergy itching, Unknown [facility] Other (2 sources) Amoxicillin / Clavulanate Drug Allergy Unknown [facility] Other (2 sources) Ciprofloxacin Drug Allergy Unknown [facility] Other (3 sources) Codeine; Translations: [codeine] Drug Allergy Unknown [facility] Repository (2 sources) levoFLOXacin Drug Allergy Unknown [facility] Other (2 sources) Calcium Channel Antagonists Drug allergy Unknown [facility] Other (2 sources) cefdinir Drug Allergy 08-21-19 22 [facility] Repository (2 sources) Ciprofloxacin Drug Allergy [facility] (1 source) Codeine Drug Allergy 04-07-20 14 [facility] (2 sources) levoFLOXacin Drug Allergy [facility] (2 sources) Calcium Channel Blocking Agents-Benzothiazep gertrudis Drug allergy (disorder) 02-23-20 16 [facility] Medications Current Medications Medication Drug Class(es) Dates Sig (Normalized) Sig (Original) amitriptyline hydrochloride 50 mg oral tablet (1 source) Tricyclic Antidepressant Start: 01-10-2022 take 1 tablet by mouth once daily at bedtime amitriptyline 50 mg Tab 50 mg = 1 tab(s), Oral, Once a day (at bedtime), # 30 tab(s), Refills(s) 3, Pharmacy: [facility]/pharmacy #[id number], 160, cm, 07/31/20 7:46:00 EST, Height/Length Dosing, 145, kg, 07/31/20 7:46:00 EST, Weight Dosing Start Date: 01/10/22 Status: Ordered atenolol 50 mg oral tablet (4 sources) beta-Adrenergic Elliott Start: 11-28-2021 take 1 tablet by mouth once daily atenolol 50 mg Tab 50 mg, Oral, Daily, # 90 tab(s), Refills(s) 0, Pharmacy: [facility]/pharmacy #6177, 160, cm, 07/31/20 7:46:00 EST, Height/Length [...] q12hr, # 20 cap(s), Refills(s) 0, Pharmacy: [facility]/pharmacy #6177, 160, cm, 07/31/20 7:46:00 EST, Height/Length Dosing, 145, kg, 07/31/20 7:46:00 EST, Weight Dosing Start Date: 11/29/20 Status: Ordered Colace (3 sources) Start: 01-10-2022 Colace Oral, B ID, Refills(s) 0 Start Date: 01/10/22 Status: Ordered take 1 capsule by [facility] every twenty-four hours Colace 100 MG 1 capsule as needed Orally Once a day Active doxycycline hyclate 100 mg oral capsule (1 source) Tetracycline-class Drug Start: 04-07-2021 take 1 capsule by mouth twice daily doxycycline hyclate 100 mg Cap 100 mg = 1 cap(s), Oral, BID, # 20 cap(s), Refills(s) 0, Pharmacy: [facility]/pharmacy #6177, 160, cm, 07/31/20 7:46:00 EST, Height/Length [...] tab(s), Oral, Daily, 30 tab(s), Refill(s) 5, [facility]/pharmacy #6177, 160, cm, 07/31/20 7:46:00 EST, Height/Length [...] anxiety, # 40 tab(s), Refills(s) 2, Pharmacy: [facility]/pharmacy #6177, 160, cm, 07/31/20 7:46:00 EST, Height/Length [...] bedtime), # 45 EA, Refills(s) 1, Pharmacy: [facility]/pharmacy #6177, 160, cm, 07/31/20 7:46:00 EST, Height/Length Dosing, 145, kg, 07/31/20 7:46:00 EST, Weight Dosing Start Date: 11/11/21 Status: Ordered Start: 11-11-2021 take 1 tablet by hong th once daily at bedtime traZODONE 100 mg Tab 100 mg = 1 tab(s), Oral, Once a day (at bedtime), # 90 tab(s), Refills(s) 1, Pharmacy: [facility]/pharmacy #6177, 160, cm, 07/31/20 7:46:00 EST, Height/Length [...] Resolved: 09-01-2021 Episodic Other aftercare (1 source) psychological operations (current) use of antibiotics Onset: 09-01-2021 Resolved: 09-01-2021 Episodic Other aftercare (1 source) Other halfway (current) drug therapy; Translations: [OTH RETIREMENT CURRENT DRUG THERAPY] Onset: 08-20-2022 Episodic Superficial injury; contusion (1 source) Blister (nonthermal), right lower leg, initial encounter; Translations: [BLISTER NONTHERMAL RT LOW LEG INIT] Onset: 02-17-2022 Episodic Results Test Name Value Interpretation Reference Range Facility Consultation Noteon 10-11-19 Consultation Note [id number] #1.00TIFF Normal [facility] Consultation Noteon 10-05-19 Consultation Note [id number] #1.00TIFF Normal [facility] RAD - MRI Reporton RAD - MRI Report [id number] #1.00TIFF Normal [facility] RAD - MISCon 07-13-2023 RAD - MISC [id number] #1.00TIFF Normal [facility] RAD - CT Reporton 06-12-2023 RAD - CT Report [id number]# 1.00TIFF Normal [facility] Family Medicine Office/Clini c Noteon 05-31-2023 Family Medicine Office/Clinic Note HPI Staff Jarett is a 57 year old female presenting to [facility] Establish Care: History: Any previous diagnosis: HTN, rheumatoid lung disease History of seeing any specialist: Dr Baldwin(Rheum) and Dr Yadav(Wound) When was your last doctors visit: Last provider: Dr Davison Any recent labs: 11/29/22 Health Maintenance UTD: Colonoscopy: 2018 Mammogram: Due Pelvic/Pap: No not in some [...] anxiety, # 40 cap(s), Refills(s) 2, Pharmacy: [facility]/pharmacy #6177, 157, cm, 05/30/23 17:31:00 EST, Height/Length Dosing hydrOXYzine, 25 mg = 1 cap(s), Oral, QID, PRN for anxiety, # 40 cap(s), Refills(s) 2, Pharmacy: [facility]/pharmacy #6177, 160.6, cm, 11/29/22 14:47:00 EDT, Height/Length Dosing Follow-up No qualifying data available Problem List/Past Medical History Ongoing Breast cancer screening by mammogram Dyskinesia of gallbladder Generalized anxiety disorder Hypertension Morbid obesity Pruritic condition 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 Stroke: Father. [facility] Comment on above: Result Comment: Elec tronically Signed By: Ann Glasgow\.br\Date and Time Signed: 05/31/23 15:38 EST Formson 05-31-2023 Forms [id number]# 1.00TIFF [facility] Consultation Noteon 12-09-19 Consultation Note [id number] #1.00CD:127 [facility] Consultation Note [id number] #1.00CD:127 [facility] RAD - CT Reporton 12-08-2022 RAD - CT Report [id number] #1.00CD:127 [facility] RAD - Ultrasound Reporton RAD - Ultrasound Report [id number] #1.00CD:[address] [facility] Consultation Noteon 12-07-19 Consultation Note [id number] #1.00CD:[address] [facility] RAD - CT Reporton 12-06-2022 RAD - CT Report [id number] #1.00CD:[address] [facility] RAD - MISCon 12-06-2022 RAD - MISC [id number] #1.00CD:[address] [facility] RAD - Ultrasound Reporton RAD - Ultrasound Report [id number] #1.00CD:[address] [facility] Provider Letteron 12-04-2022 Provider Letter December 04, 2022 JARETT KEBEDE [address] [place] [id number] : 1965 To Whom It May Concern, Please excuse above patient from work. Date of Illness: From: _ 12/02/2022 To: _ 12/04/2022 May Return to Work On: 12/05/2022 Restrictions: _ Comments: _ Sincerely, Dr. Jeremias Davison DO [address] [place] [address] [facility] Physician Referralon 023 Physician Referral [id number]#1.00CD:127 [facility] Reminderson 12-01-2022 Reminders - From: Jeremias DAVISON DO To: [facility] - Clinical; Sent: 11/30/2022 21:26:03 EDT Show [...] 14.2 % (14.0 - 50.0) 11/29/2022 18:08 Gaines Auto 5.8 % (4.0 - 14.0) 11/29/2022 18:08 Eos Auto 0.7 % (0.0 - 8.0) 11/29/2022 18:08 Basophil Auto 0.4 % (0.0 - 2.0) 11/29/2022 18:08 Neutro Absolute ((H)) 8.3 E9/L (2.0 - 7.5) 11/29/2022 18:08 Lymph Absolute 1.5 E9/L (1.0 - 4.0) 11/29/2022 18:08 Gaines Absolute 0.6 E9/L (0.2 - 1.0) 11/29/2022 [...] CB with any questions. Thank you Normal [facility] Auto Diffon 11-30-2022 Basophils/100 WBC (Bld) 0.4 % Normal 0.0-2.0 [facility] Comment on above: Order Comment: Order Added by Discern Expert. Performed By: #### 2 977446, 9319124, 8473402, 8803823, 48508945 ####[facility] [address] [place] [address] Basophils/Leukocytes Auto (Bld) [Pure # fraction] 0.0 E9/L Normal 0.0-0.2 [facility] Comment on above: Order Comment: Order Added by Discern Expert. Performed By: #### 2 293953, 9959258, 9790419, 0621014, 22968183 ####[facility] [address] [place] [address] Eosinophils/100 WBC (Bld) 0.7 % Normal 0.0-8.0 [facility] Comment on above: Order Comment: Order Added by Discern Expert. Performed By: #### 2 697042, 1476566, 1605425, 2717813, 59921020 ####[facility] [address] [place] [address] Eosinophils/Leukocytes Auto (Bld) [Pure # fraction] 0.1 E9/L Normal 0.0-0.5 [facility] Comment on above: Order Comment: Order Added by Discern Expert. Performed By: #### 2 159882, 3245235, 4124075, 5137899, 14143055 ####[address] [place] [address] Lymphocytes/100 WBC (Bld) 14.2 % Normal 14.0-50.0 [facility] Comment on above: Order Comment: Order Added by Discern Expert. Performed By: #### 2 931294, 8527170, 8700214, 2603410, 14504873 ####[facility] [address] [place] [address] Lymphocytes/Leukocytes Auto (Bld) [Pure # fraction] 1.5 E9/L Normal 1.0-4.0 [facility] Comment on above: Order Comment: Order Added by Discern Expert. Performed By: #### 2 110392, 2755764, 7813943, 6808140, 39095487 ####[address] [place] [address] Monocytes/100 WBC (Bld) 5.8 % Normal 4.0-14.0 [facility] Comment on above: Order Comment: Order Added by Discern Expert. Performed By: #### 2 245051, 8438600, 7564848, 5546552, 07492724 ####[address] [address] Monocytes/Leukocytes Auto (Bld) [Pure # fraction] 0.6 E9/L Normal 0.2-1.0 [facility] Comment on above: Order Comment: Order Added by Discern Expert. Performed By: #### 2 703928, 6774847, 0528367, 7332063, 83122141 ####[address] [address] Neutrophils/100 WBC (Bld) 78.9 % High 36.0-75.0 [facility] Comment on above: Order Comment: Order Added by Discern Expert. Performed By: #### 2 822986, 9385710, 4699889, 2750644, 62242169 ####[address] [address] Neutrophils/Leukocytes Auto (Bld) [Pure # fraction] 8.3 E9/L High 2.0-7.5 [facility] Comment on above: Order Comment: Order Added by Discern Expert. Performed By: #### 2 992077, 2912016, 6976760, 7281850, 32531001 ####[address] [place] [address] CBC w/ Auto Diffon 3 Erythrocyte distribution width (RBC) [Ratio] 15.1 % High 10.9-14.2 [facility] Comment on above: Performed By: #### 2 298262, 3920528, 1634252, 9193016, 22968636 ####[facility] [address] [place] [address] Hematocrit (Bld) [Volume fraction] 45.9 % Normal 34.0-46.0 [facility] Comment on above: Performed By: #### 2 106182, 5545391, 9662992, 5125052, 06728044 ####[address] [address] Hemoglobin (Bld) [Mass/Vol] 14.8 g/dL Normal 12.0-16.0 [facility] Comment on above: Performed By: #### 2 892975, 0829608, 3111812, 0887486, 26966747 ####[place] [id number] MCH (RBC) [Entitic mass] 29.3 pg Normal 27.0-34.0 [facility] Comment on above: Performed By: #### 2 013132, 0727081, 1953320, 9664664, 43624262 ####[address] [address] MCHC (RBC) [Mass/Vol] 32.3 g/dL Normal 31.4-36.0 [facility] Comment on above: Performed By: #### 2 735662, 0681921, 0246028, 2269374, 86889417 ####[address] [address] MCV (RBC) [Entitic vol] 90.7 fL Normal 80.0-100.0 [facility] Comment on above: Performed By: #### 2 668848, 2666337, 5163561, 2940956, 36662116 ####[address] [place] [address] Platelet mean volume (Bld) [Entitic vol] 9.4 fL Normal 6.4-10.8 [facility] Comment on above: Performed By: #### 2 974755, 4572271, 3082067, 5460818, 62599448 ####[address] [place] [address] Platelets (Bld) [#/Vol] 269.0 E9/L Normal 150.0-500.0 [facility] Comment on above: Performed By: #### 2 913041, 8411993, 6385344, 5266072, 76958445 ####[address] [address] RBC (Bld) [#/Vol] 5.1 E12/L Normal 4.3-5.9 [facility] Comment on above: Performed By: #### 2 528232, 2187484, 8692777, 9288268, 37405854 ####[address] [address] WBC corrected for nucl RBC Auto (Bld) [#/Vol] 10.6 E9/L Normal 4.0-11.0 [facility] Comment on above: Performed By: #### 2 514335, 5787972, 3403382, 5598564, 08050163 ####[address] [address] CMPon 11-30-2022 Albumin [Mass/Vol] 3.2 g/dL Low 3.3-5.0 [facility] Comment on above: Performed By: #### 2 845547, 2127664, 5148926, 1334910, 89793649 ####[address] [place] [address] Albumin/Globulin (S) [Mass conc ratio] 0.9 Low 1.1-2.2 [facility] Comment on above: Performed By: #### 2 945011, 7195665, 8823026, 6517605, 79630397 ####[address] [place] [address] ALP [Catalytic activity/Vol] 70 Int._Unit/L Normal 21-98 [facility] Comment on above: Performed By: #### 2 302026, 4718894, 5456477, 1631045, 80561136 ####[facility] [address] [place] [address] ALT No additional P-5'-P [Catalytic activity/Vol] 19 Int._Unit/L Normal 6-46 [facility] Comment on above: Performed By: #### 2 985955, 9436222, 0892019, 7145886, 04700033 ####[facility] [address] [place] [address] Anion gap [Moles/Vol] 15 mmol/L Normal 6-16 [facility] Comment on above: Performed By: #### 2 543648, 1521287, 0230343, 0770218, 75981702 ####[facility] [address] [place] [address] AST [Catalytic activity/Vol] 15 Int._Unit/L Normal 5-43 [facility] Comment on above: Performed By: #### 2 410458, 4676354, 1634980, 4802917, 32739652 ####[facility] [address] [place] [address] Bilirubin [Mass/Vol] 0.3 mg/dL Normal 0.0-1.1 [facility] Comment on above: Performed By: #### 2 783582, 3442758, 8914664, 4577756, 48159841 ####[facility] [address] [place] [address] Calcium [Mass/Vol] 9.1 mg/dL Normal 8.9-11.1 [facility] Comment on above: Performed By: #### 2 657105, 6257277, 7685945, 9362045, 82000730 ####[facility] [address] [place] [address] Chloride [Moles/Vol] 100 mmol/L Low 101-111 [facility] Comment on above: Performed By: #### 2 080868, 0984270, 2754544, 2045233, 39148573 ####[facility] [address] [place] [address] CO2 [Moles/Vol] 30 mmol/L Normal 21-31 [facility] Comment on above: Performed By: #### 2 753483, 2414943, 1655194, 4687178, 25977168 ####[facility] [address] [place] [address] Creatinine [Mass/Vol] 0.8 mg/dL Normal 0.5-1.3 [facility] Comment on above: Performed By: #### 2 654285, 2410826, 2540419, 6078810, 92911167 ####[facility] [address] [place] [address] Globulin (S) [Mass/Vol] 3.5 g/dL Normal 1.4-4.0 [facility] Comment on above: Performed By: #### 2 668081, 3081454, 4557470, 4593178, 80096482 ####[facility] [address] [place] [address] Glucose [Mass/Vol] 123 mg/dL Normal 55-199 [facility] Comment on above: Result Comment: If t his glucose result represents a fasting glucose, interpretation should refer to the following reference range: 55-99 mg/dL Performed By: #### 2 948717, 5079423, 5038334, 2955736, 18379400 ####[facility] [address] [place] [address] Potassium [Moles/Vol] 3.9 mmol/L Normal 3.5-5.3 [facility] Comment on above: Performed By: #### 2 038363, 1638206, 4461869, 1609348, 22630222 ####[facility] [address] [place] [address] Protein [Mass/Vol] 6.7 g/dL Normal 6.0-7.8 [facility] Comment on above: Performed By: #### 2 094434, 7793124, 8005373, 0062346, 71506433 ####[facility] [address] [place] [address] Sodium [Moles/Vol] 141 mmol/L Normal 135-145 [facility] Comment on above: Performed By: #### 2 376121, 8304553, 4952254, 9193771, 62795498 ####[facility] [address] [place] [address] Urea nitrogen [Mass/Vol] 20 mg/dL Normal 5-21 [facility] Comment on above: Performed By: #### 2 728261, 8820016, 9237629, 7235140, 77392430 ####[facility] [address] [place] [address] Urea nitrogen/Creatinine [Mass ratio] 25 No Units High 10-20 [facility] Comment on above: Performed By: #### 2 788183, 1817256, 7003606, 0291629, 92348567 ####[facility] [address] [place] [address] CRPon 11-30-2022 CRP [Mass/Vol] 1.6 mg/dL Normal <=1.9 [facility] Comment on above: Performed By: #### 2 726577, 6823960, 0930195, 5540859, 09977933 ####[facility] [address] [place] [address] Family Medicine Office/Clini c Noteon 11-30-2022 Family [...] a CT of her abdomen completed at [facility] in 2020. States she did have labs drawn in August at [facility]. Also states she has had chronic [...] CBC w/ Auto Diff Comprehensive Metabolic Panel [facility] External Ambulatory Referral Lab Specimen Collect 727[address] US Gallbladder 2. Dyskinesia of gallbladder (K82.8: Other specified diseases of gallbladder) Ordered: C-Reactive Protein CBC w/ Auto Diff Comprehensive Metabolic Panel [facility] External Ambulatory Referral Lab Specimen Collect [id number] US Gallbladder 3. Pruritic condition (L29.9: Pruritus, unspecified) Ordered: C-Reactive Protein CBC w/ Auto Diff Comprehensive Metabolic Panel [facility] External Ambulatory Referral Lab Specimen Collect [id number] US Gallbladder Orders: amitriptyline, 50 mg = 1 tab(s), Oral, Once a day (at bedtime), # 30 tab(s), Refills(s) 3, [facility], cm, 07/31/20 7:46:00 EST, Height/Length Dosing, 145, kg, 07/31/20 7:46:00 EST, Weight Dosing cephalexin, 500 mg = 1 cap(s), Oral, q12hr, # 20 cap(s), Refills(s) 0, [facility], 160.6, cm, 11/29/22 14:47:00 EDT, Height/Length Dosing colesevelam, 3.75 gm = 1 EA, Oral, Daily, # 30 EA, Refills(s) 0, [facility], 160.6, cm, 11/29/22 14:47:00 EDT, Height/Length Dosing hyoscyamine, 0.125 mg = 1 tab(s), Oral, QID, PRN for spasm, dicyclomine ineffective, # 40 tab(s), Refills(s) 0, Pharmacy: [facility]/pharmacy #6177, 160.6, cm, 11/29/22 14:47:00 EDT, Height/Length Dosing ondansetron, 4 mg = 1 tab(s), Oral, q8hr, PRN Nausea/Vomiting, # 12 tab(s), Refills(s) 0, Pharmacy: [facility]/pharmacy #6177, 160.6, cm, 11/29/22 14:47:00 EDT, Height/Length Dosing ondansetron, 4 mg = 1 tab(s), Oral, q8hr, PRN Nausea/Vomiting, # 12 tab(s), Refills(s) 0, Pharmacy: [facility]/pharmacy #6177, 160, cm, 07/31/20 7:46:00 EST, Height/Length Dosing, 145, kg, 07/31/20 7:46:00 EST, Weight Dosing Follow-up With When Contact Information Jeremias DAVISON DO, FAM Only if needed [address] [place] [address]- Additional Instructions: Problem List/Past Medical History Ongoing Dyskinesia of gallbladder Generalized anxiety disorder Hypertension Morbid obesity Pruritic condit (more content not included)... Normal [facility] Comment on above: Result Comment: Elec tronically Signed By: Jeremias DAVISON DO\.br\Date and Time Signed: 11/29/22 22:31 EDT eGFRon 11-30-2022 GFR/1.73 sq M.predicted among non-blacks MDRD (S/P/Bld) [Vol rate/Area] 85 mL/min/1.73 m2 Normal >=59 [facility] Comment on above: Order Comment: Order added by Discern Expert. Result Comment: Comb Fixer tammi kidney disease could be indicated at eGFR's of less than 60 mL/min/1.73m2. Kidney failure is indicated at less than 15 mL/min/1.73m2. Performed By: #### 2 952248, 1713666, 1079418, 0847044, 30157889 ####[facility] [address] [place] [address] Provider Letteron 11-29-2022 Provider Letter November 29, 2022 JARETT KEBEDE [address] [place] [id number] : 1965 To Whom It May Concern, Please excuse above patient from work. Date of Illness: From: _11/29/2022 To: _12/01/2022 May Return to Work On:12/01/2022 Sincerely, Jeremias Davison DO [facility] [place] [address] [place] [id number] [facility] Pre-Visit Planningon 023 Pre-Visit Planning - From: Viji Fisher RN To: Jeremias DAVISON DO; Sent: 11/28/2022 08:55:28 EDT Subject: Pre-Visit Planning Due Date/Time: 11/28/2022 08:55:00 EDT Caller Name: JARETT KEBEDE; Caller Number: H , M Sc Dr. Davison *Based on your response below, [...] peripheral vascular disease 08/24/2021 [facility] report: [facility]- L02.415 Cutaneous abscess of right lower [...] feel free to contact me at extension [phone]. Thank you! Viji Fisher, JUSTINEN, RN, CCM, CCDS, CCDS-O - From: Jeremias DAVISON DO To: Viji Fisher RN; Sent: 11/28/2022 10:51:33 EDT Subject: RE: Pre-Visit Planning Caller Name: JARETT KEBEDE; Caller Number: H , M I am not sure. I have not seen for awhile Normal [address] [facility] AUTO DIFFon 08-17-2022 BASO # 0.1 103/ul Normal 0.0-0.1 [facility] Comment on above: Performed By: #### C BC #### [facility] [address] [address] [address] Rox Us Basophils/100 WBC (Bld) 0.4 % Normal 0.2-2.0 [facility] Comment on above: Performed By: #### C BC #### [facility] [address] [address] [address] Rox Us EO # 0.2 103/ul Normal 0.0-0.7 [facility] Comment on above: Performed By: #### C BC #### [facility] [address] [address] [address] Rox Us Eosinophils/100 WBC (Bld) 1.5 % Normal 0.9-7.0 [facility] Comment on above: Performed By: #### C BC #### [facility] [address] [place] [address] Dr. Rox Us Erythrocyte distribution width (RBC) [Ratio] 15.4 % Critically high 11.0-15.0 [facility] Comment on above: Performed By: #### C BC #### [facility] [address] [place] [address] Dr. Rox Us Hematocrit (Bld) [Volume fraction] 51.3 % Critically high 36.0-48.0 [facility] Comment on above: Performed By: #### C BC #### [facility] [address] [place] [address] Dr. Rox Us Hemoglobin (Bld) [Mass/Vol] 15.7 g/dL Normal 12.0-16.0 [facility] Comment on above: Performed By: #### C BC #### [facility] [address] [place] [address] Dr. Rox Us IG # 0.07 10e3/ul Critically high 0.00-0.03 [facility] Comment on above: Performed By: #### C BC #### [facility] [address] [place] [address] Dr. Rox Us IG % 0.6 % Critically high 0.0-0.5 [facility] Comment on above: Performed By: #### C BC #### [facility] [address] [place] [address] Dr. Rox Us LYMPH # 1.8 103/ul Normal 1.2-3.8 [facility] Comment on above: Performed By: #### C BC #### [facility] [address] [place] [address] Dr. Rox Us Lymphocytes/100 WBC (Bld) 15.2 % Critically low 20.5-60.0 [facility] Comment on above: Performed By: #### C BC #### [facility] [address] [place] [address] Dr. Rox Us MANUAL DIFF REQ NO Normal [facility] Comment on above: Performed By: #### C BC #### [facility] [address] [place] [address] Dr. Rox Us MCH (RBC) [Entitic mass] 28.6 pg Normal 26.7-34.0 [facility] Comment on above: Performed By: #### C BC #### [facility] [address] [place] [address] Dr. Rox Us MCHC (RBC) [Mass/Vol] 30.6 g/dL Normal 29.9-35.2 [facility] Comment on above: Performed By: #### C BC #### [facility] [address] [place] [address] Dr. Rox Us MCV (RBC) [Entitic vol] 93.6 fL Normal 81.0-99.0 [facility] Comment on above: Performed By: #### C BC #### [facility] [address] [place] [address] Dr. Rox Us MONO # 0.8 103/ul Normal 0.3-0.8 [facility] Comment on above: Performed By: #### C BC #### [facility] [address] [place] [address] Dr. Rox Us Monocytes/100 WBC (Bld) 7.2 % Normal 1.7-12.0 [facility] Comment on above: Performed By: #### C BC #### [facility] [address] [place] [address] Dr. Rox Us NEUT # 8.8 103/ul Critically high 1.4-6.5 [facility] Comment on above: Performed By: #### C BC #### [facility] [address] [place] [address] Dr. Rox Us Neutrophils/100 WBC (Bld) 75.1 % Critically high 43.0-75.0 [facility] Comment on above: Performed By: #### C BC #### [facility] [address] [place] [address] Dr. Rox Us Platelet mean volume (Bld) [Entitic vol] 9.5 fL Normal 9.5-13.5 [facility] Comment on above: Performed By: #### C BC #### [facility] [address] [place] [address] Dr. Rox Us PLT 302 103/ul Normal 150-450 [facility] Comment on above: Performed By: #### C BC #### [facility] [address] [place] [address] Dr. Rox Us RBC 5.48 106/ul Critically high 4.20-5.40 [facility] Comment on above: Performed By: #### C BC #### [facility] [address] [place] [address] Dr. Rox Us WBC 11.7 103/ul Critically high 4.0-11.0 [facility] Comment on above: Performed By: #### C BC #### [facility] [address] [place] [address] Dr. Rox Us PROF 14(COMP METB)on 023 Albumin [Mass/Vol] 3.1 g/dL Critically low 3.4-5.0 [facility] Comment on above: Performed By: #### C MP #### [facility] [address] [place] [address] Dr. Rox Us Albumin/Globulin [Mass ratio] 0.7 {ratio} Normal [facility] Comment on above: Performed By: #### C MP #### [facility] [address] [place] [address] Dr. Rox Us ALP [Catalytic activity/Vol] 87 U/L Normal 46-116 [facility] Comment on above: Performed By: #### C MP #### [facility] [address] [place] [address] Dr. Rox Us ALT [Catalytic activity/Vol] 24 U/L Normal 14-59 [facility] Comment on above: Performed By: #### C MP #### [facility] [address] [place] [address] Dr. Rox Us Anion gap [Moles/Vol] 8.5 mmol/L Normal [facility] Comment on above: Performed By: #### C MP #### [facility] [address] [place] [address] Dr. Rox Us AST [Catalytic activity/Vol] 14 U/L Critically low 15-37 [facility] Comment on above: Performed By: #### C MP #### [facility] [address] [place] [address] Dr. Rox Us Bilirubin [Mass/Vol] 0.3 mg/dL Normal 0.2-1.0 [facility] Comment on above: Performed By: #### C MP #### [facility] [address] [place] [address] Dr. Rox Us Calcium [Mass/Vol] 9.3 mg/dL Normal 8.5-10.1 [facility] Comment on above: Performed By: #### C MP #### [facility] [address] [place] [address] Dr. Rox Us Chloride [Moles/Vol] 102 mmol/L Normal 98-107 [facility] Comment on above: Performed By: #### C MP #### [facility] [address] [place] [address] Dr. Rox Us CO2 [Moles/Vol] 34.6 mmol/L Critically high 21.0-32.0 [facility] Comment on above: Performed By: #### C MP #### [facility] [address] [address] [address] Rox Us Creatinine [Mass/Vol] 0.76 mg/dL Normal 0.55-1.02 [facility] Comment on above: Performed By: #### C MP #### [facility] [address] [address] [address] Rox Us EGFR-AF MONGOLIAN >60 Normal >=60 [facility] Comment on above: Performed By: #### C MP #### [facility] [address] [address] [address] Rox Us EGFR-NON AF MONGOLIAN >60 Normal >=60 [facility] Comment on above: Performed By: #### C MP #### [facility] [address] [place] [address] Dr. Rox Us Globulin (S) [Mass/Vol] 4.3 g/dL Normal [facility] Comment on above: Performed By: #### C MP #### [facility] [address] [address] [address] Rox Us Glucose [Mass/Vol] 125 mg/dL Critically high 74-106 [facility] Comment on above: Performed By: #### C MP #### [facility] [address] [address] [address] Rox Us Potassium [Moles/Vol] 4.1 mmol/L Normal 3.5-5.1 [facility] Comment on above: Performed By: #### C MP #### [facility] [address] [address] [address] Rox Us Protein [Mass/Vol] 7.4 g/dL Normal 6.4-8.2 [facility] Comment on above: Performed By: #### C MP #### [facility] [address] [address] [address] Rox Us Sodium [Moles/Vol] 141 mmol/L Normal 136-145 [facility] Comment on above: Performed By: #### C MP #### [facility] [address] [address] [address] Rox Us Urea nitrogen [Mass/Vol] 21.0 mg/dL Critically high 7.0-18.0 [facility] Comment on above: Performed By: #### C MP #### [facility] [address] [address] [address] Rox Us Urea nitrogen/Creatinine [Mass ratio] 27.6 mg/mg Normal [facility] Comment on above: Performed By: #### C MP #### [facility] [address] [address] [address] Rox Us SED RATE [facility] 2022 SED RATE 52 mm/hr Critically high <=30 [facility] Comment on above: Performed By: #### S EDR #### [facility] [address] [address] [address] Rox Us Albumin [Mass/volume] in Ser um or PlasmaOrdered By: Juan Carlos Baldwin on 01-12-2022 Albumin [Mass/Vol] 3.2 g/dL 3.2-5.5 [facility] Basophils Auto (Bld) [#/Vol] Ordered By: Juan Carlos Baldwin on 01-12-2022 Basophils (Bld) [#/Vol] 0.1 10*3/uL 0.0-0.2 [facility] Basophils/100 WBC Auto (Bld) Ordered By: Juan Carlos Baldwin on 01-12-2022 Basophils/100 WBC (Bld) 0.5 % [facility] Blood hemoglobin measurement (mass/volume)Ordered By: Juan Carlos Baldwin on 01-12-2022 Hemoglobin (Bld) [Mass/Vol] 13.8 g/dL 11.8-15.4 [facility] Blood leukocytes automated c ount (number/volume)Ordered By: Juan Carlos Baldwin on 01-12-2022 WBC (Bld) [#/Vol] 9.7 10*3/uL 4.5-11.0 [facility] Complete Blood Count Auto Di ffon 01-12-2022 Basophils (Bld) [#/Vol] 0.1 10*3/uL Normal 0.0-0.2 [facility] Comment on above: Performed By: #### C BC, CMP, ESR #### [facility] [address] [place] [address] [place] Basophils/100 WBC (Bld) 0.5 % Normal . [facility] Comment on above: Performed By: #### C BC, CMP, ESR #### [facility] [address] [place] [address] [place] Eosinophils (Bld) [#/Vol] 0.2 10*3/uL Normal 0.0-0.45 [facility] Comment on above: Performed By: #### C BC, CMP, ESR #### [facility] [address] [place] [address] [place] Eosinophils/100 WBC (Bld) 1.8 % Normal . [facility] Comment on above: Performed By: #### C BC, CMP, ESR #### [facility] [address] Erythrocyte distribution width (RBC) [Ratio] 17.4 % High 11.9-15.3 [facility] Comment on above: Performed By: #### C BC, CMP, ESR #### [facility] [address] Hematocrit (Bld) [Volume fraction] 42.7 % Normal 34.0-46.4 [facility] Comment on above: Performed By: #### C BC, CMP, ESR #### [facility] [address] [place] [address] [place] Hemoglobin (Bld) [Mass/Vol] 13.8 g/dL Normal 11.8-15.4 [facility] Comment on above: Performed By: #### C BC, CMP, ESR #### [facility] [address] [place] [address] [place] Lymphocytes (Bld) [#/Vol] 1.8 10*3/uL Normal 1.00-4.8 [facility] Comment on above: Performed By: #### C BC, CMP, ESR #### [facility] [address] [place] [address] [place] Lymphocytes/100 WBC (Bld) 18.3 % Normal . [facility] Comment on above: Performed By: #### C BC, CMP, ESR #### [facility] [address] MCH (RBC) [Entitic mass] 27.4 pg Normal 24.7-34.3 [facility] Comment on above: Performed By: #### C BC, CMP, ESR #### [facility] [address] MCV (RBC) [Entitic vol] 84.5 fL Normal 80-100 [facility] Comment on above: Performed By: #### C BC, CMP, ESR #### [address] Mean Corpuscular HGB Conc 32.4 g/dL Normal 32.0-35.0 [facility] Comment on above: Performed By: #### C BC, CMP, ESR #### [address] Monocytes (Bld) [#/Vol] 0.6 10*3/uL Normal 0.0-0.8 [facility] Comment on above: Performed By: #### C BC, CMP, ESR #### [address] Monocytes/100 WBC (Bld) 6.5 % Normal . [facility] Comment on above: Performed By: #### C BC, CMP, ESR #### [place] [address] [place] Neutrophils (Bld) [#/Vol] 7.1 10*3/uL Normal 1.8-7.7 [facility] Comment on above: Performed By: #### C BC, CMP, ESR #### [place] [address] [place] Neutrophils/100 WBC (Bld) 72.9 % Normal . [facility] Comment on above: Performed By: #### C BC, CMP, ESR #### [place] [address] [place] Nucleated RBC/100 WBC (Bld) [Ratio] 0.1 % Normal 0-0.5 [facility] Comment on above: Performed By: #### C BC, CMP, ESR #### [address] Platelet mean volume (Bld) [Entitic vol] 8.1 fL Normal 6.3-10.7 [facility] Comment on above: Performed By: #### C BC, CMP, ESR #### [address] Platelets (Bld) [#/Vol] 341 10*3/uL Normal 150-450 [facility] Comment on above: Performed By: #### C BC, CMP, ESR #### [address] RBC (Bld) [#/Vol] 5.06 10*6/uL High 3.60-5.00 [facility] Comment on above: Performed By: #### C BC, CMP, ESR #### [address] WBC (Bld) [#/Vol] 9.7 10*3/uL Normal 4.5-11.0 [facility] Comment on above: Performed By: #### C BC, CMP, ESR #### [address] Comprehensive Metabolic Pane lola 01-12-2022 Albumin [Mass/Vol] 3.2 g/dL Normal 3.2-5.5 [facility] Comment on above: Performed By: #### C BC, CMP, ESR #### [address] Albumin/Globulin [Mass ratio] 0.9 {ratio} Normal [facility] Comment on above: Performed By: #### C BC, CMP, ESR #### [address] ALP [Catalytic activity/Vol] 76 U/L Normal 32-92 [facility] Comment on above: Result Comment: PERF ORMED BY: [place] [address] PATHOLOGIST [employer] CRYSTAL SPRING M.D. Performed By: #### C BC, CMP, ESR #### [address] ALT [Catalytic activity/Vol] 15 U/L Normal 10-60 [facility] Comment on above: Performed By: #### C BC, CMP, ESR #### [address] AST [Catalytic activity/Vol] 16 U/L Normal 10-42 [facility] Comment on above: Performed By: #### C BC, CMP, ESR #### [address] Bilirubin [Mass/Vol] 0.4 mg/dL Normal 0.3-1.2 [facility] Comment on above: Performed By: #### C BC, CMP, ESR #### [address] Calcium [Mass/Vol] 9.6 mg/dL Normal 8.2-10.2 [facility] Comment on above: Performed By: #### C BC, CMP, ESR #### [place] [address] [place] Chloride [Moles/Vol] 98 mmol/L Normal 95-114 [facility] Comment on above: Performed By: #### C BC, CMP, ESR #### [place] [address] [place] CO2 [Moles/Vol] 29.4 mmol/L Normal 22.0-30.0 [facility] Comment on above: Performed By: #### C BC, CMP, ESR #### [facility] [address] [place] [address] [place] Creatinine [Mass/Vol] 0.84 mg/dL Normal 0.44-1.03 [facility] Comment on above: Performed By: #### C BC, CMP, ESR #### [place] [address] [place] Estimated GFR ( Perla > 60 Normal [facility] Comment on above: Result Comment: GFR estimated reference range: According to KDOQI guidelines, <60 ml/min/1.73m2 is sufficient to diagnose a patient with chronic kidney disease. Performed By: #### C BC CMP, ESR #### [facility] [address] Estimated GFR (Non- Am > 60 Normal [facility] Comment on above: Performed By: #### C BC CMP, ESR #### [facility] [address] Globulin (S) [Mass/Vol] 3.7 g/dL Normal [facility] Comment on above: Performed By: #### C MESFIN CMP, ESR #### [address] Glucose [Mass/Vol] 115 mg/dL High 70-100 [facility] Comment on above: Result Comment: [place] Glucose Reference Range is dependent on time and content of last meal. Glucose of more than 200 mg/dL in a nonstressed, ambulatory subject supports the diagnosis of Diabetes Mellitus. ADA recommended reference range Performed By: #### C MESFIN CMP, ESR #### [address] Potassium [Moles/Vol] 5.0 mmol/L Normal 3.5-5.1 [facility] Comment on above: Performed By: #### C MESFIN CMP, ESR #### [facility] [address] [place] [address] [place] Protein [Mass/Vol] 6.9 g/dL Normal 6.1-7.9 [facility] Comment on above: Performed By: #### C MESFIN CMP, ESR #### [facility] [address] [place] [address] [place] Sodium [Moles/Vol] 140 mmol/L Normal 136-146 [facility] Comment on above: Performed By: #### C BC, CMP, ESR #### [facility] [address] [place] [address] [place] Urea nitrogen [Mass/Vol] 17 mg/dL Normal 9- [facility] Comment on above: Performed By: #### C BC, CMP, ESR #### [facility] [address] [place] [address] Creatinine and Glomerular fi ltration rate.predicted panel (S/P/Bld)Ordered By: Juan Carlos Baldwin on 01-12-2022 Creatinine [Mass/Vol] 0.84 mg/dL 0.44-1.03 [facility] Eosinophils Auto (Bld) [#/Vo l]Ordered By: Juan Carlos Baldwin on 01-12-2022 Eosinophils (Bld) [#/Vol] 0.2 10*3/uL 0.0-0.45 [facility] Eosinophils/100 WBC Auto (Bl d)Ordered By: Juan Carlos Baldwin on 01-12-2022 Eosinophils/100 WBC (Bld) 1.8 % [facility] Erythrocyte Sedimentation Ra daysi 01-12-2022 ESR (Bld) [Velocity] 47 mm/h High 0- [facility] Comment on above: Result Comment: PERF ORMED BY: [place] [address] PATHOLOGIST [employer] CRYSTAL SPRING M.D. Performed By: #### C BC, CMP, ESR #### [facility] [address] [place] [address] Erythrocyte distribution wid th Auto (RBC) [Ratio]Ordered By: Juan Carlos Baldwin on 01-12-2022 Erythrocyte distribution width (RBC) [Ratio] 17.4 % 11.9-15.3 [facility] Erythrocyte sedimentation ra te by Photometric methodOrdered By: Juan Carlos Baldwin on 01-12-2022 ESR Photometric method (Bld) [Velocity] 47 mm/hr 0- [facility] Estimated glomerular filtrat ion rate (GFR) non- AmericanOrdered By: Juan Carlos Baldwin on 01-12-2022 GFR/1.73 sq M.predicted among non-blacks MDRD (S/P/Bld) [Vol rate/Area] > 60 mL/Min [facility] Globulin Calc (S) [Mass/Vol] Ordered By: Juan Carlos Baldwin on 01-12-2022 Globulin (S) [Mass/Vol] 3.7 g/dL [facility] Hematocrit Auto (Bld) [Volum e fraction]Ordered By: Juan Carlos Baldwin on 01-12-2022 Hematocrit (Bld) [Volume fraction] 42.7 % 34.0-46.4 [facility] - Hematology and Cell countsOrdered By: Juan Carlos Baldwin on 01-12-2022 Nucleated RBC/100 WBC (Bld) [Ratio] 0.1 % 0-0.5 [facility] Lymphocytes Auto (Bld) [#/Vo l]Ordered By: Juan Carlos Baldwin on 01-12-2022 Lymphocytes (Bld) [#/Vol] 1.8 10*3/uL 1.00-4.8 [facility] Lymphocytes/100 WBC Auto (Bl d)Ordered By: Juan Carlos Baldwin on 01-12-2022 Lymphocytes/100 WBC (Bld) 18.3 % [facility] MCH Auto (RBC) [Entitic mass ]Ordered By: Juan Carlos Baldwin on 01-12-2022 MCH (RBC) [Entitic mass] 27.4 pg 24.7-34.3 [facility] MCHC Auto (RBC) [Mass/Vol]Or dered By: Juan Carlos Baldwin on 01-12-2022 MCHC (RBC) [Mass/Vol] 32.4 g/dL 32.0-35.0 [facility] MCV Auto (RBC) [Entitic vol] Ordered By: Juan Carlos Baldwin on 01-12-2022 MCV (RBC) [Entitic vol] 84.5 fL 80-100 [facility] Monocytes Auto (Bld) [#/Vol] Ordered By: Juan Carlos Baldwin on 01-12-2022 Monocytes (Bld) [#/Vol] 0.6 10*3/uL 0.0-0.8 [facility] Monocytes/100 WBC Auto (Bld) Ordered By: Juan Carlos Baldwin on 01-12-2022 Monocytes/100 WBC (Bld) 6.5 % [facility] Neutrophils Auto (Bld) [#/Vo l]Ordered By: Juan Carlos Baldwin on 01-12-2022 Neutrophils (Bld) [#/Vol] 7.1 10*3/uL 1.8-7.7 [facility] Neutrophils/100 WBC Auto (Bl d)Ordered By: Juan Carlos Baldwin on 01-12-2022 Neutrophils/100 WBC (Bld) 72.9 % [facility] No Panel InformationOrdered By: Juan Carlos Baldwin on 01-12-2022 Estimated GFR () > 60 mL/Min [facility] Comment on above: GFR estimated refere nce range: According to KDOQI guidelines, <60 ml/min/1.73m2 is sufficient to diagnose a patient with chronic kidney disease. Pharmacy Creatinine Clearance (Chem N/A [facility] Platelet mean volume Auto (B ld) [Entitic vol]Ordered By: Juan Carlos Baldwin on 01-12-2022 Platelet mean volume (Bld) [Entitic vol] 8.1 fL 6.3-10.7 [facility] Platelets Auto (Bld) [#/Vol] Ordered By: Juan Carlos Baldwin on 01-12-2022 Platelets (Bld) [#/Vol] 341 10*3/uL 150-450 [facility] Protein [Mass/volume] in Ser um or PlasmaOrdered By: Juan Carlos Baldwin on 01-12-2022 Protein [Mass/Vol] 6.9 g/dL 6.1-7.9 [facility] RBC Auto (Bld) [#/Vol]Ordere d By: Juan Carlos Baldwin on 01-12-2022 RBC (Bld) [#/Vol] 5.06 10*6/uL 3.60-5.00 [facility] Serum or plasma alanine oviedo otransferase measurement without P-5'-P (enzymatic activiOrdered By: Juan Carlos Baldwin on 01-12-2022 ALT No additional P-5'-P [Catalytic activity/Vol] 15 U/L 10-60 [facility] Serum or plasma albumin/glob ulin mass ratioOrdered By: Juan Carlos Baldwin on 01-12-2022 Albumin/Globulin [Mass ratio] 0.9 {ratio} [facility] Serum or plasma alkaline breanna sphatase measurement (enzymatic activity/volume)Ordered By: Juan Carlos Baldwin on 06-30-2022 ALP [Catalytic activity/Vol] 76 U/L 32-92 [facility] Serum or plasma aspartate am inotransferase measurement (enzymatic activity/volume)Ordered By: Juan Carlos Baldwin on 01-12-2022 AST [Catalytic activity/Vol] 16 U/L 10-42 [facility] Serum or plasma calcium wayne urement (mass/volume)Ordered By: Juan Carlos Baldwin on 01-12-2022 Calcium [Mass/Vol] 9.6 mg/dL 8.2-10.2 [facility] Serum or plasma chloride arcadio surement (moles/volume)Ordered By: Juan Carlos Baldwin on 01-12-2022 Chloride [Moles/Vol] 98 mmol/L 95-114 [facility] Serum or plasma glucose wayne urement (mass/volume)Ordered By: Juan Carlos Baldwin on 01-12-2022 Glucose [Mass/Vol] 115 mg/dL 70-100 [facility] Comment on above: ADA recommended refe rence range Random Glucose Reference Range is dependent on time and content of last meal. Glucose of more than 200 mg/dL in a nonstressed, ambulatory subject supports the diagnosis of Diabetes Mellitus. Serum or plasma potassium me asurement (moles/volume)Ordered By: Juan Carlos Baldwin on 01-12-2022 Potassium [Moles/Vol] 5.0 mmol/L 3.5-5.1 [facility] Serum or plasma sodium measu rement (moles/volume)Ordered By: Juan Carlos Baldwin on 01-12-2022 Sodium [Moles/Vol] 140 mmol/L 136-146 [facility] Serum or plasma total biliru bin measurement (mass/volume)Ordered By: Juan Carlos Baldwin on 01-12-2022 Bilirubin [Mass/Vol] 0.4 mg/dL 0.3-1.2 [facility] Serum or plasma total carbon dioxide measurement (moles/volume)Ordered By: Juan Carlos Baldwin on 01-12-2022 CO2 [Moles/Vol] 29.4 mmol/L 22.0-30.0 [facility] Serum or plasma urea nitroge n measurement (mass/volume)Ordered By: Juan Carlos Baldwin on 01-12-2022 Urea nitrogen [Mass/Vol] 17 mg/dL 9-23 [facility] BASIC METABOLIC PANELon 01-2 Calcium [Mass/Vol] 7.7 mg/dL Low 8.6-10.3 [facility] Comment on above: Order Comment: Yes: Add to Previous draw if able Performed By: #### 0 0071 ####[facility] [place] [address], [place] Chloride [Moles/Vol] 104 mmol/L Normal 98-107 [facility] Comment on above: Order Comment: Yes: Add to Previous draw if able Performed By: #### 0 0071 ####[facility] [place] [address], [place] CO2 [Moles/Vol] 31 mmol/L Normal 21-31 [facility] Comment on above: Order Comment: Yes: Add to Previous draw if able Performed By: #### 0 0071 ####[facility] [id number], [place] Creatinine [Mass/Vol] 0.62 mg/dL Normal 0.60-1.20 [facility] Comment on above: Order Comment: Yes: Add to Previous draw if able Performed By: #### 0 0071 ####[facility] [place] [address], [place] GFR/1.73 sq M predicted among blacks MDRD (S/P/Bld) [Vol rate/Area] mL/min/{1.73_m2} Normal >60 [facility] Comment on above: Order Comment: Yes: Add to Previous draw if able Performed By: #### 0 0071 ####[facility] [id number], [place] GFR/1.73 sq M predicted among non-blacks MDRD (S/P/Bld) [Vol rate/Area] mL/min/{1.73_m2} Normal >60 [facility] Comment on above: Order Comment: Yes: Add to Previous draw if able Performed By: #### 0 0071 ####[facility] [place] [address], [facility] Glucose [Mass/Vol] 100 mg/dL Normal 70-100 [facility] Comment on above: Order Comment: Yes: Add to Previous draw if able Performed By: #### 0 0071 ####[facility] [place] [address], [facility] Potassium [Moles/Vol] 4.0 mmol/L Normal 3.5-5.1 [facility] Comment on above: Order Comment: Yes: Add to Previous draw if able Performed By: #### 0 0071 ####[facility] [place] [address], [facility] Sodium [Moles/Vol] 140 mmol/L Normal 136-145 [facility] Comment on above: Order Comment: Yes: Add to Previous draw if able Performed By: #### 0 0071 ####[facility] [place] [address], [facility] Urea nitrogen [Mass/Vol] 15 mg/dL Normal 7-25 [facility] Comment on above: Order Comment: Yes: Add to Previous draw if able Performed By: #### 0 0071 ####[facility] [place] [address], [facility] CBC W/DIFFon 08-07-2020 ABS BASOPHILS 0.0 10*3/uL Normal 0.0-0.2 The [facility] Comment on above: Order Comment: No: D o not add to previous draw Performed By: #### 5 102 #### [facility] [address] [place] [address], [facility] ABS NEUTROPHILS 9.7 10*3/uL High 1.6-7.6 The [facility] Comment on above: Order Comment: No: D o not add to previous draw Performed By: #### 5 102 #### [facility] [address] [place] [address], [facility] Basophils/100 WBC (Bld) 0.0 % Normal 0.0-1.0 [facility] Comment on above: Order Comment: No: D o not add to previous draw Performed By: #### 5 0103 #### [facility] [address] [place] [address], [facility] Eosinophils (Bld) [#/Vol] 0.3 10*3/uL Normal 0.0-0.5 [facility] Comment on above: Order Comment: No: D o not add to previous draw Performed By: #### 5 0103 #### [facility] [address] [place] [address], [facility] Eosinophils/100 WBC (Bld) 2.7 % Normal 0.0-6.0 [facility] Comment on above: Order Comment: No: D o not add to previous draw Performed By: #### 5 0103 #### [facility] [address] [place] [address], [facility] Erythrocyte distribution width (RBC) [Ratio] 14.3 % Normal 11.5-15.0 [facility] Comment on above: Order Comment: No: D o not add to previous draw Performed By: #### 5 3 #### [facility] [address] [place] [address], [facility] Hematocrit (Bld) [Volume fraction] 35.7 % Low 36.0-45.0 [facility] Comment on above: Order Comment: No: D o not add to previous draw Performed By: #### 5 0103 #### [facility] [address] [place] [address], [facility] Hemoglobin (Bld) [Mass/Vol] 10.9 g/dL Low 12.0-15.0 [facility] Comment on above: Order Comment: No: D o not add to previous draw Performed By: #### 5 0103 #### [facility] [address] [facility] [place] [address], [facility] Lymphocytes (Bld) [#/Vol] 0.7 10*3/uL Low 1.2-4.0 [facility] Comment on above: Order Comment: No: D o not add to previous draw Performed By: #### 5 0103 #### [facility] [address] [place] [address], [facility] Lymphocytes/100 WBC (Bld) 6.3 % Low 20.0-45.0 [facility] Comment on above: Order Comment: No: D o not add to previous draw Performed By: #### 5 0103 #### [facility] [address] [place] [address], [facility] MCH (RBC) [Entitic mass] 27.3 pg Normal 27.0-33.0 [facility] Comment on above: Order Comment: No: D o not add to previous draw Performed By: #### 5 0103 #### [facility] [address] [place] [id number], [facility] MCHC (RBC) [Mass/Vol] 30.5 g/dL Low 32.0-35.0 [facility] Comment on above: Order Comment: No: D o not add to previous draw Performed By: #### 5 0103 #### [facility] [address] [place] [address], [facility] MCV (RBC) [Entitic vol] 89.5 fL Normal 82.0-98.0 [facility] Comment on above: Order Comment: No: D o not add to previous draw Performed By: #### 5 0103 #### [facility] [address] [place] [address], [facility] Monocytes (Bld) [#/Vol] 0.8 10*3/uL Normal 0.1-1.0 [facility] Comment on above: Order Comment: No: D o not add to previous draw Performed By: #### 5 0103 #### [facility] [address] [place] [address], [place] MONOS 7.2 % Normal 5.0-12.0 [facility] Comment on above: Order Comment: No: D o not add to previous draw Performed By: #### 5 0103 #### [facility] [address] [place] [address], [place] MYELOS 0.9 % High 0.0-0.0 The [facility] Comment on above: Order Comment: No: D o not add to previous draw Performed By: #### 5 0103 #### [facility] [address] [place] [address], [facility] Neutrophils/100 WBC (Bld) 82.9 % High 40.0-72.0 [facility] Comment on above: Order Comment: No: D o not add to previous draw Performed By: #### 5 0103 #### [facility] [address] [place] [address], [place] Nucleated RBC/100 WBC (Bld) [Ratio] 0 % Normal 0-0 [facility] Comment on above: Order Comment: No: D o not add to previous draw Performed By: #### 5 0103 #### [facility] [address] [place] [address], [place] PLAT CNT 388 10*3/uL Normal 150-400 [facility] Comment on above: Order Comment: No: D o not add to previous draw Performed By: #### 5 0103 #### [facility] [address] [place] [address], [place] RBC (Bld) [#/Vol] 3.99 10*6/uL Normal 3.80-5.00 The [facility] Comment on above: Order Comment: No: D o not add to previous draw Performed By: #### 5 0103 #### [facility] [address] [place] [address], [facility] WBC (Bld) [#/Vol] 11.71 10*3/uL High 4.00-10.60 [facility] Comment on above: Order Comment: No: D o not add to previous draw Performed By: #### 5 0103 #### [facility] [address] [place] [address], [facility] BASIC METABOLIC PANELon 07-17 Calcium [Mass/Vol] 7.8 mg/dL Low 8.6-10.3 [facility] Comment on above: Order Comment: No: D o not add to previous draw Performed By: #### 4 1000, 67642, 97856 ####[facility] [place] [address], [facility] Chloride [Moles/Vol] 102 mmol/L Normal 98-107 [facility] Comment on above: Order Comment: No: D o not add to previous draw Performed By: #### 4 1000, 61757, 42427 ####[facility] [place] [address], [facility] CO2 [Moles/Vol] 32 mmol/L High 21-31 The [facility] Comment on above: Order Comment: No: D o not add to previous draw Performed By: #### 4 1000, 22790, 01578 ####[facility] [place] [address], [facility] Creatinine [Mass/Vol] 0.73 mg/dL Normal 0.60-1.20 The [facility] Comment on above: Order Comment: No: D o not add to previous draw Performed By: #### 4 1000, 74696, 83934 ####[facility] [place] [address], [facility] GFR/1.73 sq M predicted among blacks MDRD (S/P/Bld) [Vol rate/Area] mL/min/{1.73_m2} Normal >60 The [facility] Comment on above: Order Comment: No: D o not add to previous draw Performed By: #### 4 1000, 74981, 85604 ####[facility] [place] [address], [facility] GFR/1.73 sq M predicted among non-blacks MDRD (S/P/Bld) [Vol rate/Area] mL/min/{1.73_m2} Normal >60 The [facility] Comment on above: Order Comment: No: D o not add to previous draw Performed By: #### 4 1000, 58479, 75831 ####[facility] [place] [address], [place] Glucose [Mass/Vol] 95 mg/dL Normal 70-100 The [facility] Comment on above: Order Comment: No: D o not add to previous draw Performed By: #### 4 1000, 11257, 75032 ####[facility] [place] [address], [place] Potassium [Moles/Vol] 3.8 mmol/L Normal 3.5-5.1 The [facility] Comment on above: Order Comment: No: D o not add to previous draw Performed By: #### 4 1000, 35715, 95827 ####[facility] [place] [address], [place] Sodium [Moles/Vol] 139 mmol/L Normal 136-145 [facility] Comment on above: Order Comment: No: D o not add to previous draw Performed By: #### 4 1000, 24543, 16764 ####[facility] [place] [address], [place] Urea nitrogen [Mass/Vol] 18 mg/dL Normal 7-25 The [facility] Comment on above: Order Comment: No: D o not add to previous draw Performed By: #### 4 1000, 08578, 25012 ####[facility] CBC COMPLETE BLOOD COUNTon 0 08-06-2020 Erythrocyte distribution width (RBC) [Ratio] 14.3 % Normal 11.5-15.0 The [facility] Comment on above: Order Comment: Yes: Add to Previous draw if able Performed By: #### 1 0204 #### [facility] [address] [place] [id number], [facility] Hematocrit (Bld) [Volume fraction] 36.8 % Normal 36.0-45.0 The [facility] Comment on above: Order Comment: Yes: Add to Previous draw if able Performed By: #### 1 4 #### [facility] [address] [place] [address], [facility] Hemoglobin (Bld) [Mass/Vol] 11.2 g/dL Low 12.0-15.0 The [facility] Comment on above: Order Comment: Yes: Add to Previous draw if able Performed By: #### 1 4 #### [facility] [address] [place] [address], [facility] MCH (RBC) [Entitic mass] 27.3 pg Normal 27.0-33.0 The [facility] Comment on above: Order Comment: Yes: Add to Previous draw if able Performed By: #### 1 0204 #### [facility] [address] [place] [address], [facility] MCHC (RBC) [Mass/Vol] 30.4 g/dL Low 32.0-35.0 The [facility] Comment on above: Order Comment: Yes: Add to Previous draw if able Performed By: #### 1 0204 #### [facility] [address] [place] [id number], [facility] MCV (RBC) [Entitic vol] 89.5 fL Normal 82.0-98.0 The [facility] Comment on above: Order Comment: Yes: Add to Previous draw if able Performed By: #### 1 0204 #### [facility] [address] Nucleated RBC/100 WBC (Bld) [Ratio] 0 % Normal 0-0 The [facility] Comment on above: Order Comment: Yes: Add to Previous draw if able Performed By: #### 1 0204 #### [facility] [address] [place] [address], [facility] PLAT CNT 405 10*3/uL High 150-400 [facility] Comment on above: Order Comment: Yes: Add to Previous draw if able Performed By: #### 1 0204 #### [facility] [address] [place] [address], [facility] RBC (Bld) [#/Vol] 4.11 10*6/uL Normal 3.80-5.00 The [facility] Comment on above: Order Comment: Yes: Add to Previous draw if able Performed By: #### 1 0204 #### [facility] [address] [place] [address], [facility] WBC (Bld) [#/Vol] 14.15 10*3/uL High 4.00-10.60 [facility] Comment on above: Order Comment: Yes: Add to Previous draw if able Performed By: #### 1 0204 #### [facility] [address] [place] [address], [facility] MAGNESIUM BLOODon 08-06-2020 Magnesium [Mass/Vol] 2.3 mg/dL Normal 1.9-2.7 The [facility] Comment on above: Performed By: #### 4 1000, 75057, 15934 ####[facility] [place] [address], [facility] PHOSPHORUS BLOODon Phosphate [Mass/Vol] 2.7 mg/dL Normal 2.5-5.0 The [facility] Comment on above: Performed By: #### 4 1000, 80359, 94794 ####[facility] [place] [address], [facility] BASIC METABOLIC PANELon 01-2 Calcium [Mass/Vol] 8.0 mg/dL Low 8.6-10.3 [facility] Comment on above: Order Comment: No: D o not add to previous draw Performed By: #### 0 0071 ####[facility] [place] [address], [facility] Chloride [Moles/Vol] 102 mmol/L Normal 98-107 The [facility] Comment on above: Order Comment: No: D o not add to previous draw Performed By: #### 0 0071 ####[facility] [place] [address], [facility] CO2 [Moles/Vol] 32 mmol/L High 21-31 [facility] Comment on above: Order Comment: No: D o not add to previous draw Performed By: #### 0 0071 ####[facility] [id number], [facility] Creatinine [Mass/Vol] 0.73 mg/dL Normal 0.60-1.20 The [facility] Comment on above: Order Comment: No: D o not add to previous draw Performed By: #### 0 0071 ####[facility] [place] [address], [facility] GFR/1.73 sq M predicted among blacks MDRD (S/P/Bld) [Vol rate/Area] mL/min/{1.73_m2} Normal >60 The [facility] Comment on above: Order Comment: No: D o not add to previous draw Performed By: #### 0 0071 ####[facility] [place] [address], [facility] GFR/1.73 sq M predicted among non-blacks MDRD (S/P/Bld) [Vol rate/Area] mL/min/{1.73_m2} Normal >60 The [facility] Comment on above: Order Comment: No: D o not add to previous draw Performed By: #### 0 0071 ####[facility] [place] [address], [facility] Glucose [Mass/Vol] 107 mg/dL High 70-100 The [facility] Comment on above: Order Comment: No: D o not add to previous draw Performed By: #### 0 0071 ####[facility] [place] [address], [facility] Potassium [Moles/Vol] 4.0 mmol/L Normal 3.5-5.1 The [facility] Comment on above: Order Comment: No: D o not add to previous draw Performed By: #### 0 0071 ####[facility] [place] [address], [facility] Sodium [Moles/Vol] 138 mmol/L Normal 136-145 The [facility] Comment on above: Order Comment: No: D o not add to previous draw Performed By: #### 0 0071 ####[facility] [facility].[address] Urea nitrogen [Mass/Vol] 20 mg/dL Normal 7-25 The [facility] Comment on above: Order Comment: No: D o not add to previous draw Performed By: #### 0 0071 ####[facility] [place] [address].[place] [address], [facility] CBC W/DIFFon 08-05-2020 ABS BASOPHILS 0.1 10*3/uL Normal 0.0-0.2 The [facility] Comment on above: Order Comment: Yes: Add to Previous draw if able Performed By: #### 5 0103 ####[facility] [place] [address], [facility] ABS IMM GRANS 0.2 10*3/uL Normal 0.0-0.2 The [facility] Comment on above: Order Comment: Yes: Add to Previous draw if able Performed By: #### 5 0103 ####[facility] [place] [address], [facility] ABS NEUTROPHILS 11.8 10*3/uL High 1.6-7.6 The [facility] Comment on above: Order Comment: Yes: Add to Previous draw if able Performed By: #### 5 0103 ####[facility] [place] [address], [facility] Basophils/100 WBC (Bld) 0.4 % Normal 0.0-1.0 The [facility] Comment on above: Order Comment: Yes: Add to Previous draw if able Performed By: #### 5 0103 ####[facility] [place] [address], [facility] Eosinophils (Bld) [#/Vol] 0.3 10*3/uL Normal 0.0-0.5 [facility] Comment on above: Order Comment: Yes: Add to Previous draw if able Performed By: #### 5 0103 ####[facility] [place] [address], [facility] Eosinophils/100 WBC (Bld) 2.0 % Normal 0.0-6.0 The [facility] Comment on above: Order Comment: Yes: Add to Previous draw if able Performed By: #### 5 3 ####[facility] [facility].[address] Erythrocyte distribution width (RBC) [Ratio] 14.2 % Normal 11.5-15.0 The [facility] Comment on above: Order Comment: Yes: Add to Previous draw if able Performed By: #### 5 0103 ####[facility] [place] [address], [facility] Hematocrit (Bld) [Volume fraction] 36.9 % Normal 36.0-45.0 The [facility] Comment on above: Order Comment: Yes: Add to Previous draw if able Performed By: #### 5 3 ####[facility] [facility].[address] Hemoglobin (Bld) [Mass/Vol] 11.3 g/dL Low 12.0-15.0 The [facility] Comment on above: Order Comment: Yes: Add to Previous draw if able Performed By: #### 5 3 ####[facility] IMMATURE GRANS 1.3 % High 0.0-1.0 The [facility] Comment on above: Order Comment: Yes: Add to Previous draw if able Performed By: #### 5 3 ####[facility] [place] [address] Lymphocytes (Bld) [#/Vol] 0.8 10*3/uL Low 1.2-4.0 The [facility] Comment on above: Order Comment: Yes: Add to Previous draw if able Performed By: #### 5 0103 ####[facility] [place] [address] Lymphocytes/100 WBC (Bld) 5.7 % Low 20.0-45.0 The [facility] Comment on above: Order Comment: Yes: Add to Previous draw if able Performed By: #### 5 3 ####[facility] [place] [address] MCH (RBC) [Entitic mass] 27.5 pg Normal 27.0-33.0 The [facility] Comment on above: Order Comment: Yes: Add to Previous draw if able Performed By: #### 5 3 ####[facility] [place] [address] MCHC (RBC) [Mass/Vol] 30.6 g/dL Low 32.0-35.0 The [facility] Comment on above: Order Comment: Yes: Add to Previous draw if able Performed By: #### 5 3 ####[facility] [place] [address], [facility] MCV (RBC) [Entitic vol] 89.8 fL Normal 82.0-98.0 The [facility] Comment on above: Order Comment: Yes: Add to Previous draw if able Performed By: #### 0103 ####[facility] [place] [address], [facility] Monocytes (Bld) [#/Vol] 1.1 10*3/uL High 0.1-1.0 The [facility] Comment on above: Order Comment: Yes: Add to Previous draw if able Performed By: #### 5 3 ####[facility] [place], [place] [address].[place] [address], [facility] MONOS 7.7 % Normal 5.0-12.0 The [facility] Comment on above: Order Comment: Yes: Add to Previous draw if able Performed By: #### 5 3 ####[facility] [place] [address], [facility] Neutrophils/100 WBC (Bld) 82.9 % High 40.0-72.0 The [facility] Comment on above: Order Comment: Yes: Add to Previous draw if able Performed By: #### 3 ####[facility] [place] [address], [facility] Nucleated RBC/100 WBC (Bld) [Ratio] 0 % Normal 0-0 The [facility] Comment on above: Order Comment: Yes: Add to Previous draw if able Performed By: #### 5 0103 ####[facility] [place] [address], [facility] PLAT CNT 386 10*3/uL Normal 150-400 The [facility] Comment on above: Order Comment: Yes: Add to Previous draw if able Performed By: #### 5 3 ####[facility] RBC (Bld) [#/Vol] 4.11 10*6/uL Normal 3.80-5.00 The [facility] Comment on above: Order Comment: Yes: Add to Previous draw if able Performed By: #### 5 0103 ####[facility] WBC (Bld) [#/Vol] 14.21 10*3/uL High 4.00-10.60 [facility] Comment on above: Order Comment: Yes: Add to Previous draw if able Performed By: #### 5 0103 ####[facility] APTTon 08-04-2020 aPTT Coag (Bld) [Time] 39.7 s High 25.0-35.0 Th e [facility] Comment on above: Order Comment: Yes: [...] PURPOSE. Performed By: #### 1 0204 #### [facility] [address] CBC W/DIFFon 08-04-2020 ABS BASOPHILS 0.0 10*3/uL Normal 0.0-0.2 The [facility] Comment on above: Order Comment: Yes: Add to Previous draw if able Performed By: #### 1 0204 #### [facility] [address] ABS IMM GRANS 0.1 10*3/uL Normal 0.0-0.2 [facility] [facility] Comment on above: Order Comment: Yes: Add to Previous draw if able Performed By: #### 1 0204 #### [facility] [address] [place] [address], [facility] ABS NEUTROPHILS 13.1 10*3/uL High 1.6-7.6 The [facility] Comment on above: Order Comment: Yes: Add to Previous draw if able Performed By: #### 1 0204 #### [facility] [address] [place] [address], [facility] Basophils/100 WBC (Bld) 0.1 % Normal 0.0-1.0 The [facility] Comment on above: Order Comment: Yes: Add to Previous draw if able Performed By: #### 1 4 #### [facility] [address] [place] [address], [facility] Eosinophils (Bld) [#/Vol] 0.2 10*3/uL Normal 0.0-0.5 [facility] Comment on above: Order Comment: Yes: Add to Previous draw if able Performed By: #### 1 4 #### [facility] [address] [place] [address], [facility] Eosinophils/100 WBC (Bld) 1.1 % Normal 0.0-6.0 The [facility] Comment on above: Order Comment: Yes: Add to Previous draw if able Performed By: #### 1 4 #### [facility] [address] [place] [address], [facility] Erythrocyte distribution width (RBC) [Ratio] 14.1 % Normal 11.5-15.0 The [facility] Comment on above: Order Comment: Yes: Add to Previous draw if able Performed By: #### 1 0204 #### [facility] [address] [place] [address], [facility] Hematocrit (Bld) [Volume fraction] 38.0 % Normal 36.0-45.0 The [facility] Comment on above: Order Comment: Yes: Add to Previous draw if able Performed By: #### 1 0204 #### [facility] [address] [place] [address], [facility] Hemoglobin (Bld) [Mass/Vol] 11.7 g/dL Low 12.0-15.0 The [facility] Comment on above: Order Comment: Yes: Add to Previous draw if able Performed By: #### 1 0204 #### [facility] [address] [place] [address], [facility] IMMATURE GRANS 0.8 % Normal 0.0-1.0 [facility] Comment on above: Order Comment: Yes: Add to Previous draw if able Performed By: #### 1 0204 #### [facility] [address] [place] [address], [facility] Lymphocytes (Bld) [#/Vol] 0.8 10*3/uL Low 1.2-4.0 The [facility] Comment on above: Order Comment: Yes: Add to Previous draw if able Performed By: #### 1 0204 #### [facility] [address] [place] [address], [facility] Lymphocytes/100 WBC (Bld) 5.1 % Low 20.0-45.0 The [facility] Comment on above: Order Comment: Yes: Add to Previous draw if able Performed By: #### 1 0204 #### [facility] [address] [place] [address], [facility] MCH (RBC) [Entitic mass] 27.5 pg Normal 27.0-33.0 The [facility] Comment on above: Order Comment: Yes: Add to Previous draw if able Performed By: #### 1 0204 #### [facility] [address] [place] [address], [facility] MCHC (RBC) [Mass/Vol] 30.8 g/dL Low 32.0-35.0 The [facility] Comment on above: Order Comment: Yes: Add to Previous draw if able Performed By: #### 1 0204 #### [facility] [address] [place] [address], [facility] MCV (RBC) [Entitic vol] 89.4 fL Normal 82.0-98.0 The [facility] Comment on above: Order Comment: Yes: Add to Previous draw if able Performed By: #### 1 0204 #### [facility] [address] [place] [address], [facility] Monocytes (Bld) [#/Vol] 1.0 10*3/uL Normal 0.1-1.0 The [facility] Comment on above: Order Comment: Yes: Add to Previous draw if able Performed By: #### 1 0204 #### [facility] [address] [place] [address], [facility] MONOS 6.5 % Normal 5.0-12.0 The [facility] Comment on above: Order Comment: Yes: Add to Previous draw if able Performed By: #### 1 4 #### [facility] [address] [place] [address], [facility] Neutrophils/100 WBC (Bld) 86.4 % High 40.0-72.0 The [facility] Comment on above: Order Comment: Yes: Add to Previous draw if able Performed By: #### 1 0204 #### [facility] [address] [place] [address], [facility] Nucleated RBC/100 WBC (Bld) [Ratio] 0 % Normal 0-0 The [facility] Comment on above: Order Comment: Yes: Add to Previous draw if able Performed By: #### 1 0204 #### [facility] [address] [place] [address], [facility] PLAT CNT 394 10*3/uL Normal 150-400 The [facility] Comment on above: Order Comment: Yes: Add to Previous draw if able Performed By: #### 1 0204 #### [facility] [address] [place] [address], [facility] RBC (Bld) [#/Vol] 4.25 10*6/uL Normal 3.80-5.00 [facility] Comment on above: Order Comment: Yes: Add to Previous draw if able Performed By: #### 1 0204 #### [facility] [address] WBC (Bld) [#/Vol] 15.11 10*3/uL High 4.00-10.60 [facility] Comment on above: Order Comment: Yes: Add to Previous draw if able Performed By: #### 1 0204 #### [facility] [address] [place], [place] [id number] [place] [address] CT DRAINAGE RETROPERITONEALo n 08-04-2020 CT DRAINAGE RETROPERITONEAL [facility] Department of Radiology [address] [place] [address] Patient Name: JARETT KEBEDE : 1965 Sex: F Age: Race: White Pt. Location: [address] [place] [address] Patient Status: I Ordered Date: 08/03/2020 6:05:00 [...] risks are acceptable. Consent was obtained. Timeout: Sumner protocol timeout verification performed. PROCEDURE: Estimated blood [...] achievable Electronically signed: Jovani Gold. Transcribed by: [email or web address], User Resident: Electronically Signed by: JOVANI GOLD @ 08/04/2020 01:00 PM Normal The [facility] Comment on above: Order Comment: Fluid Collection MRI CHEST W WO CONTRASTon MRI CHEST W WO CONTRAST [facility] Department of Radiology [address] [place] [address] Patient Name: JARETT KEBEDE : 1965 Sex: F Age: Race: White Pt. Location: [id number] Patient Status: I Ordered Date: 08/02/2020 2:15:00 [...] [address] from 2019 FINDINGS: There is ascites in the right [...] appropriate Electronically signed: Fredy Bennett. Transcribed by: [email or web address], User Resident: Electronically Signed by: FREDY BENNETT @ 08/04/2020 07:38 PM Normal The [facility] Comment on above: Order Comment: Yes: Add to Previous draw if able PROTHROMBIN TIMEon INR Coag (PPP) [Relative time] 1.40 {INR} High 0.91-1.16 The [facility] Comment on above: Order Comment: Yes: [...] 1995;[id number]. Performed By: #### 1 0204 #### [facility] [address] [place] [address], [facility] PT Coag (PPP) [Time] 17.2 s High 12.3-14.8 The [facility] Comment on above: Order Comment: Yes: Add to Previous draw if able Result Comment: ALL RESULTS MUST BE INTERPRETED WITH RESPECT TO BLOOD DRAWING ARTIFACT OR DILUTION ERROR OF ANTICOAGULANT AT THE TIME OF SAMPLING. Performed By: #### 1 0204 #### [facility] [address] [place] [address], [facility] BASIC METABOLIC PANELon 07-16 Calcium [Mass/Vol] 7.9 mg/dL Low 8.6-10.3 [facility] Comment on above: Order Comment: No: D o not add to previous draw Performed By: #### 0 0071 ####[facility] [place] [address], [facility] Chloride [Moles/Vol] 101 mmol/L Normal 98-107 The [facility] Comment on above: Order Comment: No: D o not add to previous draw Performed By: #### 0 0071 ####[facility] [place] [address], [facility] CO2 [Moles/Vol] 28 mmol/L Normal 21-31 [facility] Comment on above: Order Comment: No: D o not add to previous draw Performed By: #### 0 0071 ####[facility] [place] [address], [facility] Creatinine [Mass/Vol] 0.73 mg/dL Normal 0.60-1.20 The [facility] Comment on above: Order Comment: No: D o not add to previous draw Performed By: #### 0 0071 ####[facility] [place] [address], [place] GFR/1.73 sq M predicted among blacks MDRD (S/P/Bld) [Vol rate/Area] mL/min/{1.73_m2} Normal >60 The [facility] Comment on above: Order Comment: No: D o not add to previous draw Performed By: #### 0 0071 ####[facility] [place] [address], [facility] GFR/1.73 sq M predicted among non-blacks MDRD (S/P/Bld) [Vol rate/Area] mL/min/{1.73_m2} Normal >60 [facility] Comment on above: Order Comment: No: D o not add to previous draw Performed By: #### 0 0071 ####[facility] [place] [address], [place] Glucose [Mass/Vol] 103 mg/dL High 70-100 [facility] Comment on above: Order Comment: No: D o not add to previous draw Performed By: #### 0 0071 ####[facility] [place] [address], [facility] Potassium [Moles/Vol] 3.9 mmol/L Normal 3.5-5.1 The [facility] Comment on above: Order Comment: No: D o not add to previous draw Performed By: #### 0 0071 ####[facility] [place] [address], [facility] Sodium [Moles/Vol] 136 mmol/L Normal 136-145 The [facility] Comment on above: Order Comment: No: D o not add to previous draw Performed By: #### 0 0071 ####[facility] [place] [address], [facility] Urea nitrogen [Mass/Vol] 18 mg/dL Normal 7-25 The [facility] Comment on above: Order Comment: No: D o not add to previous draw Performed By: #### 0 0071 ####[facility] CBC COMPLETE BLOOD COUNTon 0 - Erythrocyte distribution width (RBC) [Ratio] 13.9 % Normal 11.5-15.0 [facility] Comment on above: Order Comment: Yes: Add to Previous draw if able Performed By: #### 1 0204 #### [facility] [address] [place] [address], [facility] Hematocrit (Bld) [Volume fraction] 35.9 % Low 36.0-45.0 The [facility] Comment on above: Order Comment: Yes: Add to Previous draw if able Performed By: #### 1 0204 #### [facility] [address] [place] [address], [facility] Hemoglobin (Bld) [Mass/Vol] 11.1 g/dL Low 12.0-15.0 The [facility] Comment on above: Order Comment: Yes: Add to Previous draw if able Performed By: #### 1 0204 #### [facility] [address] MCH (RBC) [Entitic mass] 27.5 pg Normal 27.0-33.0 The [facility] Comment on above: Order Comment: Yes: Add to Previous draw if able Performed By: #### 1 4 #### [facility] [address] [place] [address], [facility] MCHC (RBC) [Mass/Vol] 30.9 g/dL Low 32.0-35.0 The [facility] Comment on above: Order Comment: Yes: Add to Previous draw if able Performed By: #### 1 4 #### [facility] [address] [place] [address], [facility] MCV (RBC) [Entitic vol] 88.9 fL Normal 82.0-98.0 The [facility] Comment on above: Order Comment: Yes: Add to Previous draw if able Performed By: #### 1 4 #### [facility] [address] [facility]. [address] Nucleated RBC/100 WBC (Bld) [Ratio] 0 % Normal 0-0 The [facility] Comment on above: Order Comment: Yes: Add to Previous draw if able Performed By: #### 1 4 #### [facility] [address] [place] [address], [facility] PLAT CNT 339 10*3/uL Normal 150-400 [facility] Comment on above: Order Comment: Yes: Add to Previous draw if able Performed By: #### 1 0204 #### [facility] [address] [place] [address], [facility] RBC (Bld) [#/Vol] 4.04 10*6/uL Normal 3.80-5.00 The [facility] Comment on above: Order Comment: Yes: Add to Previous draw if able Performed By: #### 1 4 #### [facility] [address] [place] [address], [place] WBC (Bld) [#/Vol] 16.74 10*3/uL High 4.00-10.60 The [facility] Comment on above: Order Comment: Yes: Add to Previous draw if able Performed By: #### 1 0204 #### [facility] [address] [place] [address], [facility] HISTOPLASMA AG URINE [id number] on 08-03-2020 HISTOPLASMA AG EIA, URINE Not Detected Normal The [facility] Comment on above: Order Comment: No: D o not add to previous draw HISTOPLASMA AG, URINE Not Detected Normal Not Detected The [facility] Comment on above: Order Comment: No: [...] histoplasmosis. Test developed and characteristics determined by [employer]. See Compliance Statement B: [email or web address] Performed By: [employer] [address] [place] [address] [employer] Supervisor: Eliane Mendoza MD POC GLUCOSE LABon 08-03-2020 Glucose [Mass/Vol] 95 mg/dL Normal 70-100 The [facility] Comment on above: Performed By: #### 8 5499 #### [facility] [address] [place] [address], [facility] ASPERGILLUS GALACTOMANNAN 60 068on 08-02-2020 ASPERGILLUS GALACTOMANNAN ANTIGEN, SERUM Negative Normal Negative The [facility] Comment on above: Order Comment: Yes: [...] patients, serial sampling is recommended. Performed By: [employer] [address] [place] [address] [employer] Supervisor: Eliane Mendoza MD ASPERGILLUS GALACTOMANNAN INDEX [address] [facility] Comment on above: Order Comment: Yes: Add to Previous draw if able BASIC METABOLIC PANELon 07-16 Calcium [Mass/Vol] 7.6 mg/dL Low 8.6-10.3 [facility] Comment on above: Order Comment: No: D o not add to previous draw Performed By: #### 0 0071 ####[facility] [place] [address], [facility] Chloride [Moles/Vol] 102 mmol/L Normal 98-107 The [facility] Comment on above: Order Comment: No: D o not add to previous draw Performed By: #### 0 0071 ####[facility] [place] [address], [facility] CO2 [Moles/Vol] 27 mmol/L Normal 21-31 The [facility] Comment on above: Order Comment: No: D o not add to previous draw Performed By: #### 0 0071 ####[facility] [place] [address], [place] Creatinine [Mass/Vol] 0.87 mg/dL Normal 0.60-1.20 The [facility] Comment on above: Order Comment: No: D o not add to previous draw Performed By: #### 0 0071 ####[facility] [place] [address], [place] GFR/1.73 sq M predicted among blacks MDRD (S/P/Bld) [Vol rate/Area] mL/min/{1.73_m2} Normal >60 The [facility] Comment on above: Order Comment: No: D o not add to previous draw Performed By: #### 0 0071 ####[facility] [place] [address], [facility] GFR/1.73 sq M predicted among non-blacks MDRD (S/P/Bld) [Vol rate/Area] mL/min/{1.73_m2} Normal >60 The [facility] Comment on above: Order Comment: No: D o not add to previous draw Performed By: #### 0 0071 ####[facility] [place] [address], [facility] Glucose [Mass/Vol] 129 mg/dL High 70-100 The [facility] Comment on above: Order Comment: No: D o not add to previous draw Performed By: #### 0 0071 ####[facility] [place] [address], [facility] Potassium [Moles/Vol] 3.8 mmol/L Normal 3.5-5.1 The [facility] Comment on above: Order Comment: No: D o not add to previous draw Performed By: #### 0 0071 ####[facility] [place] [address], [place] Sodium [Moles/Vol] 136 mmol/L Normal 136-145 The [facility] Comment on above: Order Comment: No: D o not add to previous draw Performed By: #### 0 0071 ####[facility] [place] [address], [place] Urea nitrogen [Mass/Vol] 23 mg/dL Normal 7-25 The [facility] Comment on above: Order Comment: No: D o not add to previous draw Performed By: #### 0 0071 ####[facility] CBC COMPLETE BLOOD COUNTon 0 - Erythrocyte distribution width (RBC) [Ratio] 13.8 % Normal 11.5-15.0 The [facility] Comment on above: Order Comment: Yes: Add to Previous draw if able Performed By: #### 1 0204 #### [facility] [address] [place] [address], [facility] Hematocrit (Bld) [Volume fraction] 35.5 % Low 36.0-45.0 The [facility] Comment on above: Order Comment: Yes: Add to Previous draw if able Performed By: #### 1 0204 #### [facility] [address] Hemoglobin (Bld) [Mass/Vol] 11.1 g/dL Low 12.0-15.0 The [facility] Comment on above: Order Comment: Yes: Add to Previous draw if able Performed By: #### 1 0204 #### [facility] [address] [place] [address], [facility] MCH (RBC) [Entitic mass] 28.0 pg Normal 27.0-33.0 The [facility] Comment on above: Order Comment: Yes: Add to Previous draw if able Performed By: #### 1 0204 #### [facility] [address] [place] [address], [facility] MCHC (RBC) [Mass/Vol] 31.3 g/dL Low 32.0-35.0 The [facility] Comment on above: Order Comment: Yes: Add to Previous draw if able Performed By: #### 1 0204 #### [facility] [address] [place] [address], [facility] MCV (RBC) [Entitic vol] 89.4 fL Normal 82.0-98.0 The [facility] Comment on above: Order Comment: Yes: Add to Previous draw if able Performed By: #### 1 0204 #### [facility] [address] Nucleated RBC/100 WBC (Bld) [Ratio] 0 % Normal 0-0 The [facility] Comment on above: Order Comment: Yes: Add to Previous draw if able Performed By: #### 1 0204 #### [facility] [address] [place] [address], [facility] PLAT CNT 335 10*3/uL Normal 150-400 [facility] Comment on above: Order Comment: Yes: Add to Previous draw if able Performed By: #### 1 0204 #### [facility] [address] [place] [address], [facility] RBC (Bld) [#/Vol] 3.97 10*6/uL Normal 3.80-5.00 [facility] Comment on above: Order Comment: Yes: Add to Previous draw if able Performed By: #### 1 0204 #### [facility] [address] [place] [address], [facility] WBC (Bld) [#/Vol] 19.28 10*3/uL High 4.00-10.60 [facility] Comment on above: Order Comment: Yes: Add to Previous draw if able Performed By: #### 1 0204 #### [facility] [address] FUNGITELL (1,2-YBCE-D-GLUCAN )on 08-02-2020 FUNGITELL (1,3 JMLA-S-YKXRDB) <31 Normal The [facility] Comment on above: Order Comment: Yes: Add to Previous draw if able FUNGITELL INTERPRETATION Negative Normal Negative The [facility] Comment on above: Order Comment: Yes: Add to Previous draw if able Result Comment: INTE RPRETIVE INFORMATION: (1,3)-gint-L-tnlrqp (Fungitell) Less than 31 pg/mL ................... Negative 31-59 pg/mL .......................... Negative 60-79 pg/mL .......................... Indeterminate Greater than or equal to 80 pg/mL .... Positive The Fungitell test is indicated for presumptive diagnosis of fungal infection and should be used in conjunction with other diagnostic procedures. This test does not detect certain fungal species such as Cryptococcus, which produce very low levels of (1,3)-ossq-N-adnkkf. This test will not detect the zygomycetes, such as Absidia, Mucor, and Rhizopus, which are not known to produce (1,3)-gxsc-E-cxfcde. In addition, the yeast phase of Blastomyces dermatitidis produces little (1,3)-ftfu-Z-ivmels and may not be detected by the assay. Performed By: [employer] [address] [place] [address] [employer] Supervisor: Eliane Mendoza MD TB QUANTIFERON PLUSon 2020 MITOGEN MINUS NIL >10.00 Normal [facility] Comment on above: Order Comment: Yes: Add to Previous draw if able Performed By: #### 3 1592 #### [facility] [address] NIL 0.09 IU/mL Normal [facility] Comment on above: Order Comment: Yes: Add to Previous draw if able Performed By: #### 3 1592 #### [facility] [address] TB QUANTIFERON Negative Normal NEGATIVE The [facility] Comment on above: Order Comment: Yes: Add to Previous draw if able Result Comment: Erick tiferon TB Gold Interpretation (IU/mL): NEGATIVE: M. tuberculosis infection not likely. Nil: <=8.0 TB1 Antigen minus Nil (IT4VF-SGD): <0.35 OR >=0.35; and <25% of Nil value. TB2 Antigen minus Nil (IZ0SO-IZM): <0.35 OR >=0.35; and <25% of Nil [...] (https://www.cdc.gov/tb/publications/guidlines/default.htm Performed By: #### 3 1592 #### [facility] [address] [place] [address], [facility] TB1 AG 0.08 IU/mL Normal The [facility] Comment on above: Order Comment: Yes: Add to Previous draw if able Performed By: #### 3 1592 #### [facility] [address] [place] [address], [facility] TB1 AG MINUS NIL -0.01 IU/mL Normal The [facility] Comment on above: Order Comment: Yes: Add to Previous draw if able Performed By: #### 3 1592 #### [facility] [address] [place] [address], [facility] TB2 AG 0.08 IU/mL Normal The [facility] Comment on above: Order Comment: Yes: Add to Previous draw if able Performed By: #### 3 1592 #### [facility] [address] [place] [address], [facility] TB2 AG MINUS NIL -0.01 IU/mL Normal The [facility] Comment on above: Order Comment: Yes: Add to Previous draw if able Performed By: #### 3 1592 #### [facility] [address] *SARS-CoV-2 COVID-19on 08-01 [id number] Not Detected Normal Not Detected The [facility] Comment on above: Order Comment: No co llection time noted on specimen or requisition. The collection time recorded is the time of receipt in the lab. The A[employer]ima SARS-CoV-2 assay is a nucleic acid amplification test intended for the qualitative detection of RNA from SARS-CoV-2 isolated and purified from nasopharyngeal (MORNING SHOW PRODUCER),oropharyngeal (OP), nasal swab, sputum, and bronchoalveolar lavage (BAL) specimens from patients with signs and symptoms of infection who are suspected of COVID-19. Results are for the identification of SARS-CoV-2 RNA. The SARS-CoV-2 RNA is generally detectable during the acute phase of infection. The [employer]ima SARS-CoV-2 Assay on the [employer] and [employer] Fusion system is intended for use by laboratory personnel specifically instructed and trained in the operation of the [place] and [employer] system. The [employer] SARS-CoV-2 assay is [...] information. Performed By: #### 3 1792 #### [facility] [address] BASIC METABOLIC PANELon 07-16 Calcium [Mass/Vol] 7.6 mg/dL Low 8.6-10.3 [facility] [place] Comment on above: Order Comment: No: D o not add to previous draw Performed By: #### 1 0070, 50064, 86528 ####[facility] [place] [address], [facility] Chloride [Moles/Vol] 103 mmol/L Normal 98-107 The [facility] Comment on above: Order Comment: No: D o not add to previous draw Performed By: #### 1 0070, 86520, 48772 ####[facility] [place] [address], [facility] CO2 [Moles/Vol] 27 mmol/L Normal 21-31 The [facility] Comment on above: Order Comment: No: D o not add to previous draw Performed By: #### 1 0070, 50374, 66264 ####[facility] [place] [address], [facility] Creatinine [Mass/Vol] 0.85 mg/dL Normal 0.60-1.20 [facility] Comment on above: Order Comment: No: D o not add to previous draw Performed By: #### 1 0070, 31936, 10891 ####[facility] [place] [address], [facility] GFR/1.73 sq M predicted among blacks MDRD (S/P/Bld) [Vol rate/Area] mL/min/{1.73_m2} Normal >60 The [facility] Comment on above: Order Comment: No: D o not add to previous draw Performed By: #### 1 0, 55669, 47828 ####[facility] [place] [address], [facility] GFR/1.73 sq M predicted among non-blacks MDRD (S/P/Bld) [Vol rate/Area] mL/min/{1.73_m2} Normal >60 The [facility] Comment on above: Order Comment: No: D o not add to previous draw Performed By: #### 1 0, 08456, 11711 ####[facility] [place] [address], [facility] Glucose [Mass/Vol] 132 mg/dL High 70-100 The [facility] Comment on above: Order Comment: No: D o not add to previous draw Performed By: #### 1 0070, 38311, 17336 ####[facility] [place] [address], [facility] Potassium [Moles/Vol] 3.9 mmol/L Normal 3.5-5.1 The [facility] Comment on above: Order Comment: No: D o not add to previous draw Performed By: #### 1 0070, 73167, 50333 ####[facility] [place] [address], [facility] Sodium [Moles/Vol] 138 mmol/L Normal 136-145 [facility] [place] Comment on above: Order Comment: No: D o not add to previous draw Performed By: #### 1 0070, 80796, 69799 ####[facility]3000 [facility] Urea nitrogen [Mass/Vol] 19 mg/dL Normal 7-25 The [facility] Comment on above: Order Comment: No: D o not add to previous draw Performed By: #### 1 0070, 81408, 14741 ####[facility] C REACTIVE PROTEINon 021 CRP [Mass/Vol] 287.0 mg/L High 0.0-7.0 The [facility] Comment on above: Order Comment: Yes: Add to Previous draw if able Performed By: #### 6 1405 ####[facility] [place] [address], [facility] CBC W/DIFFon 08-01-2020 ABS BASOPHILS 0.1 10*3/uL Normal 0.0-0.2 The [facility] Comment on above: Order Comment: Yes: Add to Previous draw if able Performed By: #### 1 0204 #### [facility] [address] [place] [address], [facility] ABS IMM GRANS 0.1 10*3/uL Normal 0.0-0.2 The [facility] Comment on above: Order Comment: Yes: Add to Previous draw if able Performed By: #### 1 0204 #### [facility] [address] [place] [address], [facility] ABS NEUTROPHILS 19.1 10*3/uL High 1.6-7.6 [facility] Comment on above: Order Comment: Yes: Add to Previous draw if able Performed By: #### 1 0204 #### [facility] [address] [place] [address], [facility] Basophils/100 WBC (Bld) 0.2 % Normal 0.0-1.0 The [facility] Comment on above: Order Comment: Yes: Add to Previous draw if able Performed By: #### 1 0204 #### [facility] [address] [place] [address], [facility] Eosinophils (Bld) [#/Vol] 0.1 10*3/uL Normal 0.0-0.5 The [facility] Comment on above: Order Comment: Yes: Add to Previous draw if able Performed By: #### 1 4 #### [facility] [address] [place] [address], [facility] Eosinophils/100 WBC (Bld) 0.4 % Normal 0.0-6.0 The [facility] Comment on above: Order Comment: Yes: Add to Previous draw if able Performed By: #### 1 0204 #### [facility] [address] [place] [address], [facility] Erythrocyte distribution width (RBC) [Ratio] 13.8 % Normal 11.5-15.0 The [facility] Comment on above: Order Comment: Yes: Add to Previous draw if able Performed By: #### 1 0204 #### [facility] [address] [place] [address], [facility] Hematocrit (Bld) [Volume fraction] 38.9 % Normal 36.0-45.0 The [facility] Comment on above: Order Comment: Yes: Add to Previous draw if able Performed By: #### 1 0204 #### [facility] [address] [place] [address], [facility] Hemoglobin (Bld) [Mass/Vol] 12.0 g/dL Normal 12.0-15.0 The [facility] Comment on above: Order Comment: Yes: Add to Previous draw if able Performed By: #### 1 0204 #### [facility] [address] [place] [address], [facility] IMMATURE GRANS 0.6 % Normal 0.0-1.0 [facility] Comment on above: Order Comment: Yes: Add to Previous draw if able Performed By: #### 1 0204 #### [facility] [address] [facility] [place] [address], [facility] Lymphocytes (Bld) [#/Vol] 0.7 10*3/uL Low 1.2-4.0 The [facility] Comment on above: Order Comment: Yes: Add to Previous draw if able Performed By: #### 1 0204 #### [facility] [address] [facility] Lymphocytes/100 WBC (Bld) 3.2 % Low 20.0-45.0 The [facility] Comment on above: Order Comment: Yes: Add to Previous draw if able Performed By: #### 1 0204 #### [facility] [address] [place] [address], [facility] MCH (RBC) [Entitic mass] 27.4 pg Normal 27.0-33.0 The [facility] Comment on above: Order Comment: Yes: Add to Previous draw if able Performed By: #### 1 0204 #### [facility] 3000 [facility]. [address] MCHC (RBC) [Mass/Vol] 30.8 g/dL Low 32.0-35.0 The [facility] Comment on above: Order Comment: Yes: Add to Previous draw if able Performed By: #### 1 0204 #### [facility] [address] [place] [address], [facility] MCV (RBC) [Entitic vol] 88.8 fL Normal 82.0-98.0 The [facility] Comment on above: Order Comment: Yes: Add to Previous draw if able Performed By: #### 1 0204 #### [facility] [address] [place] [address], [facility] Monocytes (Bld) [#/Vol] 0.8 10*3/uL Normal 0.1-1.0 The [facility] Comment on above: Order Comment: Yes: Add to Previous draw if able Performed By: #### 1 0204 #### [facility] [address] [place] [address], [facility] MONOS 3.9 % Low 5.0-12.0 The [facility] Comment on above: Order Comment: Yes: Add to Previous draw if able Performed By: #### 1 4 #### [facility] [address] [place] [address], [facility] Neutrophils/100 WBC (Bld) 91.7 % High 40.0-72.0 The [facility] Comment on above: Order Comment: Yes: Add to Previous draw if able Performed By: #### 1 4 #### [facility] [address] [place] [address], [facility] Nucleated RBC/100 WBC (Bld) [Ratio] 0 % Normal 0-0 The [facility] Comment on above: Order Comment: Yes: Add to Previous draw if able Performed By: #### 1 4 #### [facility] [address] [place] [address], [facility] PLAT CNT 367 10*3/uL Normal 150-400 The [facility] Comment on above: Order Comment: Yes: Add to Previous draw if able Performed By: #### 1 0204 #### [facility] [address] [place] [address], [facility] RBC (Bld) [#/Vol] 4.38 10*6/uL Normal 3.80-5.00 The [facility] Comment on above: Order Comment: Yes: Add to Previous draw if able Performed By: #### 1 0204 #### [facility] 3000 [facility]. [address] WBC (Bld) [#/Vol] 20.78 10*3/uL High 4.00-10.60 [facility] Comment on above: Order Comment: Yes: Add to Previous draw if able Performed By: #### 1 0203 #### [facility] [address] [facility] CYCLIC CITRULLINATED PEPTIDE [place] [id number] 08-01-2020 CYCLIC CIT PEP 224 Units High 0-19 The [facility] Comment on above: Order Comment: [...] be monitored and testing repeated. Performed By: [employer] [address] [place] [id number] [employer] Supervisor: Eliane Mendoza MD MAGNESIUM BLOODon 08-01-2020 Magnesium [Mass/Vol] 1.7 mg/dL Low 1.9-2.7 The [facility] Comment on above: Order Comment: Yes: Add to Previous draw if able Performed By: #### 1 0204 #### [facility] [address] [place] [address], [facility] PHOSPHORUS BLOODon Phosphate [Mass/Vol] 2.7 mg/dL Normal 2.5-5.0 The [facility] Comment on above: Performed By: #### 1 0070, 85522, 39363 ####[facility]3000 [facility].[address] PROTHROMBIN TIMEon INR Coag (PPP) [Relative time] 1.50 {INR} High 0.91-1.16 The [facility] Comment on above: Order Comment: Yes: [...] CHEST 1995;[id number]. Performed By: #### 5 6101 ####[facility] [place] [address], [facility] PT Coag (PPP) [Time] 18.1 s High 12.3-14.8 The [facility] Comment on above: Order Comment: Yes: Add to Previous draw if able Result Comment: ALL RESULTS MUST BE INTERPRETED WITH RESPECT TO BLOOD DRAWING ARTIFACT OR DILUTION ERROR OF ANTICOAGULANT AT THE TIME OF SAMPLING. Performed By: #### 5 6101 ####[facility] [place] [address], [facility] RHEUMATOID FACTOR SERUMon RA 64 IU/mL High 0-20 The [facility] Comment on above: Order Comment: Yes: Add to Previous draw if able Performed By: #### 1 0204 #### [facility] [address] [place] [address], [facility] SEDIMENTATION RATEon 021 SED RATE 41 mm/hr High 0-20 The [facility] Comment on above: Order Comment: Yes: Add to Previous draw if able Performed By: #### 1 0204 #### [facility] [address] [place] [address], [facility] TROPONIN-Ion 08-01-2020 Troponin I.cardiac [Mass/Vol] 0.01 ng/mL Normal 0.00-0.04 The [facility] Comment on above: Order Comment: Yes: Add to Previous draw if able Result Comment: REFE RENCE RANGES: 0.00 - 0.04 ng/ml NORMAL 0.05 - 0.50 ng/ml INDETERMINATE > 0.50 ng/ml CONSISTENT WITH AN M.I. Performed By: #### 3 5200 ####[facility] LACTATE WITH REFLEXon 2020 Lactate [Moles/Vol] 0.9 mmol/L Normal 0.5-2.2 The [facility] Comment on above: Performed By: #### 3 1414 ####[facility] *BLOOD CULTUREon 07-31-2020 Bacteria identified Cx Nom (Bld) Clinical Report: (D) Specimen: BLOOD CULTURE Collected: 07/31/2020 17:20 Status: Final Last Updated: 08/06/2020 15:38 (1) Prior to antibiotic administration LAC CULT RES (Final) No Growth Day 5 Normal The [facility] Comment on above: Order Comment: Prior to antibiotic administration LAC Performed By: #### 3 1613 #### [facility] [address] [place] [address], [facility] Bacteria identified Cx Nom (Bld) Clinical Report: (D) Specimen: BLOOD CULTURE Collected: 07/31/2020 16:20 Status: Final Last Updated: 08/06/2020 15:38 (1) Prior to antibiotic administration RFA CULT RES (Final) No Growth Day 5 Normal [facility] Comment on above: Order Comment: Yes: Add to Previous draw if able Performed By: #### 3 0313 ####[facility] [place] [address], [facility] BASIC METABOLIC PANELon 07-16 Calcium [Mass/Vol] 7.7 mg/dL Low 8.6-10.3 [facility] Comment on above: Order Comment: Fluid Collection Performed By: #### 9 9909, 32566, 26724 ####[facility] [place] [address], [place] Chloride [Moles/Vol] 104 mmol/L Normal 98-107 The [facility] Comment on above: Order Comment: Fluid Collection Performed By: #### 9 9909, 39314, 60625 ####[facility] [place] [address], [place] CO2 [Moles/Vol] 25 mmol/L Normal 21-31 The [facility] Comment on above: Order Comment: Fluid Collection Performed By: #### 9 9909, 32908, 16692 ####[facility] [place] [address], [place] Creatinine [Mass/Vol] 0.82 mg/dL Normal 0.60-1.20 The [facility] Comment on above: Order Comment: Fluid Collection Performed By: #### 9 9909, 01712, 86753 ####[facility] [address], [place] GFR/1.73 sq M predicted among blacks MDRD (S/P/Bld) [Vol rate/Area] mL/min/{1.73_m2} Normal >60 The [facility] Comment on above: Order Comment: Fluid Collection Performed By: #### 9 9909, 43206, 44285 ####[facility] [place] [address], [facility] GFR/1.73 sq M predicted among non-blacks MDRD (S/P/Bld) [Vol rate/Area] mL/min/{1.73_m2} Normal >60 The [facility] Comment on above: Order Comment: Fluid Collection Performed By: #### 9 99, 67157, 47680 ####[facility] [place] [address], [facility] Glucose [Mass/Vol] 159 mg/dL High 70-100 The [facility] Comment on above: Order Comment: Fluid Collection Performed By: #### 9 99, 54421, 92047 ####[facility] [place] [address], [facility] Potassium [Moles/Vol] 4.4 mmol/L Normal 3.5-5.1 The [facility] Comment on above: Order Comment: Fluid Collection Performed By: #### 9 9908, 41967, 72200 ####[facility] [place] [address], [facility] Sodium [Moles/Vol] 138 mmol/L Normal 136-145 The [facility] Comment on above: Order Comment: Fluid Collection Performed By: #### 9 9908, 28257, 87861 ####[facility] [place] [address], [facility] Urea nitrogen [Mass/Vol] 20 mg/dL Normal 7-25 The [facility] Comment on above: Order Comment: Fluid Collection Performed By: #### 9 99, 78046, 12308 ####[facility] [address], [place] CBC W/DIFFon 07-31-2020 ABS BASOPHILS 0.0 10*3/uL Normal 0.0-0.2 The [facility] Comment on above: Order Comment: Yes: Add to Previous draw if able Performed By: #### 1 0204 #### [facility] [address] [facility] [place] [address], [facility] ABS IMM GRANS 0.1 10*3/uL Normal 0.0-0.2 The [facility] Comment on above: Order Comment: Yes: Add to Previous draw if able Performed By: #### 1 0204 #### [facility] [address] [place] [address], [facility] ABS NEUTROPHILS 16.2 10*3/uL High 1.6-7.6 The [facility] Comment on above: Order Comment: Yes: Add to Previous draw if able Performed By: #### 1 4 #### [facility] [address] [place] [address], [facility] Basophils/100 WBC (Bld) 0.2 % Normal 0.0-1.0 The [facility] Comment on above: Order Comment: Yes: Add to Previous draw if able Performed By: #### 1 4 #### [facility] [address] [place] [address], [facility] Eosinophils (Bld) [#/Vol] 0.0 10*3/uL Normal 0.0-0.5 The [facility] Comment on above: Order Comment: Yes: Add to Previous draw if able Performed By: #### 1 0204 #### [facility] [address] [place] [address], [facility] Eosinophils/100 WBC (Bld) 0.0 % Normal 0.0-6.0 The [facility] Comment on above: Order Comment: Yes: Add to Previous draw if able Performed By: #### 1 0204 #### [facility] [address] [place] [address], [facility] Erythrocyte distribution width (RBC) [Ratio] 13.5 % Normal 11.5-15.0 The [facility] Comment on above: Order Comment: Yes: Add to Previous draw if able Performed By: #### 1 4 #### [facility] [address] [place] [address], [facility] Hematocrit (Bld) [Volume fraction] 40.4 % Normal 36.0-45.0 The [facility] Comment on above: Order Comment: Yes: Add to Previous draw if able Performed By: #### 1 4 #### [facility] [address] [place] [address], [facility] Hemoglobin (Bld) [Mass/Vol] 12.9 g/dL Normal 12.0-15.0 The [facility] Comment on above: Order Comment: Yes: Add to Previous draw if able Performed By: #### 1 4 #### [facility] [address] [place] [address], [facility] IMMATURE GRANS 0.4 % Normal 0.0-1.0 [facility] Comment on above: Order Comment: Yes: Add to Previous draw if able Performed By: #### 1 4 #### [facility] [address] [facility] [place] [address], [facility] Lymphocytes (Bld) [#/Vol] 0.8 10*3/uL Low 1.2-4.0 The [facility] Comment on above: Order Comment: Yes: Add to Previous draw if able Performed By: #### 1 0204 #### [facility] [address] [place] [address], [facility] Lymphocytes/100 WBC (Bld) 4.7 % Low 20.0-45.0 The [facility] Comment on above: Order Comment: Yes: Add to Previous draw if able Performed By: #### 1 0204 #### [facility] [address] [place] [address], [facility] MCH (RBC) [Entitic mass] 28.0 pg Normal 27.0-33.0 The [facility] Comment on above: Order Comment: Yes: Add to Previous draw if able Performed By: #### 1 0204 #### [facility] [address] [place] [address], [facility] MCHC (RBC) [Mass/Vol] 31.9 g/dL Low 32.0-35.0 The [facility] Comment on above: Order Comment: Yes: Add to Previous draw if able Performed By: #### 1 0204 #### [facility] [address] [place] [address], [facility] MCV (RBC) [Entitic vol] 87.8 fL Normal 82.0-98.0 The [facility] Comment on above: Order Comment: Yes: Add to Previous draw if able Performed By: #### 1 0204 #### [facility] [address] [place] [address], [facility] Monocytes (Bld) [#/Vol] 0.8 10*3/uL Normal 0.1-1.0 The [facility] Comment on above: Order Comment: Yes: Add to Previous draw if able Performed By: #### 1 0204 #### [facility] [address] [place] [address], [facility] MONOS 4.6 % Low 5.0-12.0 The [facility] Comment on above: Order Comment: Yes: Add to Previous draw if able Performed By: #### 1 0204 #### [facility] [address] [place] [address], [facility] Neutrophils/100 WBC (Bld) 90.1 % High 40.0-72.0 The [facility] Comment on above: Order Comment: Yes: Add to Previous draw if able Performed By: #### 1 0204 #### [facility] [address] [place] [address], [facility] Nucleated RBC/100 WBC (Bld) [Ratio] 0 % Normal 0-0 The [facility] Comment on above: Order Comment: Yes: Add to Previous draw if able Performed By: #### 1 0204 #### [facility] PLAT CNT 383 10*3/uL Normal 150-400 [facility] Comment on above: Order Comment: Yes: Add to Previous draw if able Performed By: #### 1 0204 #### [address] RBC (Bld) [#/Vol] 4.60 10*6/uL Normal 3.80-5.00 The [facility] Comment on above: Order Comment: Yes: Add to Previous draw if able Performed By: #### 1 0204 #### [address] WBC (Bld) [#/Vol] 17.95 10*3/uL High 4.00-10.60 [facility] Comment on above: Order Comment: Yes: Add to Previous draw if able Performed By: #### 1 0204 #### [address] ABDOMEN AND PELVIS W IV A ND ORAL CONTRASTon 07-31-2020 CT ABDOMEN AND PELVIS W IV AND ORAL CONTRAST [facility] Department of Radiology [address] [place] [id number] Patient Name: JARETT KEBEDE : 1965 Sex: F Age: Race: White Pt. Location: [facility] Patient Status: I Ordered Date: 07/31/2020 6:10:00 [...] etiology. Electronically signed: Ramiro Aquino. Transcribed by: [email or web address], User Resident: RAMIRO AQUINO Electronically Signed by: RAMIRO AQUINO @ 07/31/2020 08:38 PM I personally read this/these film(s) with this resident Normal The [facility] Comment on above: Order Comment: Yes: Add to Previous draw if able CT CHEST W CONTRASTon 2020 CT CHEST W CONTRAST [facility] Department of Radiology [address] [place] [address] Patient Name: JARETT KEBEDE : 1965 Sex: F Age: Race: White Pt. Location: [facility] Patient Status: I Ordered Date: 07/31/2020 6:30:00 [...] criteria. Electronically signed: Ramiro Aquino. Transcribed by: [email or web address], User Resident: RAMIRO AQUINO Electronically Signed by: RAMIRO AQUINO @ 07/31/2020 08:21 PM I personally read this/these film(s) with this resident Normal The [facility] Comment on above: Order Comment: Yes: Add to Previous draw if able LIPASE BLOODon 07-31-2020 Lipase [Catalytic activity/Vol] U/L Low 11-82 The [facility] Comment on above: Order Comment: Fluid Collection Performed By: #### 9 9909, 67649, 84375 ####[facility] [place] [address], [place] LIVER BATTERYon 07-31-2020 Albumin [Mass/Vol] 2.6 g/dL Low 3.5-5.7 [facility] Comment on above: Order Comment: Fluid Collection Performed By: #### 9 9909, 24093, 75344 ####[facility] [place] [address], [place] ALKALINE PHOSPH 56 IU/L Normal 34-104 The [facility] Comment on above: Order Comment: Fluid Collection Performed By: #### 9 9909, 51986, 15256 ####[facility] [place] [address], [place] ALT [Catalytic activity/Vol] 13 U/L Normal 7-52 The [facility] Comment on above: Order Comment: Fluid Collection Performed By: #### 9 9909, 11558, 87247 ####[facility] [place] [address], [place] AST [Catalytic activity/Vol] 13 U/L Normal 13-39 The [facility] Comment on above: Order Comment: Fluid Collection Performed By: #### 9 9909, 61239, 30952 ####[facility] [place] [address], [place] Bilirubin [Mass/Vol] 0.6 mg/dL Normal 0.3-1.0 The [facility] Comment on above: Order Comment: Fluid Collection Performed By: #### 9 9909, 87461, 44136 ####[facility] [facility] [place] [address], [facility] Bilirubin.direct [Mass/Vol] 0.1 mg/dL Normal 0.0-0.2 The [facility] Comment on above: Order Comment: Fluid Collection Performed By: #### [id number] ####[facility] [place] [address], [facility] Protein [Mass/Vol] 6.0 g/dL Normal 6.0-8.3 The [facility] Comment on above: Order Comment: Fluid Collection Performed By: #### [id number], [id number] ####[facility] [facility] Vital Signs Date Time Vital Sign Value Performing Clinician Facility 01-10-2022 15:53-0400 Blood Pressure Location Jeremias DAVISON [facility] 01-10-2022 15:53-0400 Body temperature 97.52 [degF] Jeremias DAVISON [facility] 01-10-2022 15:53-0400 Diastolic blood pressure 84 mm[Hg] Jeremias DAVISON [facility] 01-10-2022 15:53-0400 Heart rate 70 /min Jeremias DAVISON [facility] 01-10-2022 15:53-0400 SaO2% (BldA) [Mass fraction] 95 % Jeremias DAVISON [facility] 01-10-2022 15:53-0400 Systolic blood pressure 144 mm[Hg] Jeremias DAVISON [facility] 09-01-2021 15:15-0500 Body temperature 98 [degF] Albin Bruno Other [facility] 09-01-2021 15:15-0500 Diastolic blood pressure 78 mm[Hg] Albin Bruno Other [facility] Other 09-01-2021 15:15-0500 Systolic blood pressure 123 mm[Hg] Albin Bruno Other [facility] Other Encounters Encounter Date Encounter Type Care Provider Facility Start: 05-30-2023 End: 05-31-2023 ambulatory BIOMATERIALS ENGINEER Ann Oro Facility:[facility] Jackie campos Start: 05-22-2023 End: 05-23-2023 ambulatory BIOMATERIALS ENGINEER Ann Oro Facility:[facility] Jackie andrse Start: 05-15-2023 ambulatory Jeremias DAVISON Facility: [facility] Marina Start: 11-29-2022 End: 11-30-2022 ambulatory Jeremias DAVISON Facility:[facility] Start: 11-29-2022 End: 11-30-2022 ambulatory Jeremias DAVISON Facility:[facility] Start: 11-23-2022 End: 11-24-[address] JEREMIAS DAVISON Facility: Start: 10-05-2022 End: 10-06-[address] JEREMIAS DAVISON Facility: Start: 09-11-2022 End: 09-12-[address] JEREMIAS DAVISON Facility: Start: 08-17-2022 End: 08-18-[address] DOCTOR ULLOA Facility:[facility] Start: 08-14-2022 End: 08-15-[address] JEREMIAS DAVISON Facility: Start: 07-18-2022 End: 07-19-[address] JEREMIAS DAVISON Facility: Start: 06-05-2022 End: 06-06-[address] JEREMIAS [...] encounter procedure MD Shay Baldwin Work Phone: [facility] [address] Start: 01-10-2022 End: 01-10-2022 Patient encounter procedure Jeremias DAVISON [facility] Start: 12-26-2021 End: 12-26-2021 Patient encounter procedure Jeremias DAVISON [facility] Start: 12-07-2021 End: 12-08-[address] JEREMIAS DAVISON Facility: Start: 09-08-2021 End: 09-08-2021 ambulatory Albin Bruno Other [facility] Other Start: 09-08-2021 Telephone encounter Albin Bruno [facility] Start: 09-01-2021 End: 09-01-2021 ambulatory Albin Bruno Other [facility] Other Start: 09-01-2021 Office outpatient ne w 45 minutes Albin Bruno [facility] Start: 07-31-2020 End: 08-07-2020 Evaluation and management of inpatient [place] Facility:[facility] Procedures Date Procedure Procedure Detail Performing Clinician Start: 08-04-2020 DRAINAGE OF RETROPERITONEUM, PERCUTANEOUS APPROACH, DIAGN HAITHAM ELSAMALOTY Start: 07-16-1999 Hysterectomy Jeremias OQUENDO KLAUS Colon part (body structure) Jeremias DAVISON Ileostomy operation Jeremias DAVISON Adrian Kay gavi hobson, device (physical object) Jeremias DAVISON Payers Date Payer Category Payer Unknown [id number] 2.16.8 [id number] 1965 Unknown [id number] 2.16.84 [id number] 1965 Unknown [id number] 2.16.84 0.1.570384.3.579.2.593 1965 Unknown [id number] 2.16.84 0.1.391302.3.579.2.593 1965 Unknown [id number] 2.16.84 0.1.057731.3.579.2.593 1965 Unknown [id number] 2.16.84 0.1.230473.3.579.2.593 1965 Unknown [id number] 2.16.84 0.1.257922.3.579.2.593 1965 Unknown [id number] 2.16.84 0.1.448599.3.579.2.593 1965 Unknown [id number] 2.16.84 0.1.115811.3.579.2.593 1965 Unknown [id number] 2.16.84 0.1.011743.3.579.2.593 1965 Unknown [id number] 2.16.84 0.1.301751.3.579.2.593 1965 Unknown [id number] 2.16.84 0.1.536005.3.579.2.593 1965 Unknown [id number] 2.16.84 0.1.749656.3.579.2.593 1965 Unknown [id number] 2.16.84 0.1.006608.3.579.2.593 1965 Unknown [id number] 2.16.84 0.1.858126.3.579.2.593 1965 Unknown [id number] 2.16.8 40.1.275400.3.579.2.727 1965 Unknown [id number] 2.16.8 40.1.286497.3.579.2.727 1965 Unknown [id number] 2.16.8 40.1.155977.3.579.2.727 1965 Unknown [id number] 2.16.8 40.1.678498.3.579.2.727 1965 Unknown [id number] 2.16.8 40.1.631079.3.579.2.727 1961 Medicaid [id number] 1961 Medicare [id number] 1961 Medicare [id number] Medicare Medicare Outpatient [id number] Self-pay Self Pay [id number] Social History Date Type Detail Facility Tobacco Unknown if ever smoked [facility] Other Comment on above: denies Sex Assigned At Female [facility] Other Start: 11-27-2018 Tobacco smoking status Ex-smoker (fi nding) [facility] Tobacco smoking status Never [facility] Start: 1965 Sex Assigned At Female F [facility] Functional Status Date Assessment Result Facility 01-10-2022 Functional Status N/A [facility] Evaluation note 09-01-2021 Note Date & Type [...] if it can be stopped at 2. Aug, Receiving intravenous antibiotic treatment at home (ICD-10 - Z79.2) [facility] Other Evaluation + Plan note Radiology Note Date & Type Note Facility Evaluation + Plan note Future Appointments Appointment Date:01/10/2022 04:00:00 PM Scheduled Provider:Jeremias DAVISON DO Location:[facility] Appointment Type:FM Open Future Scheduled TestsXR Abdomen 1 View 09/21/21 [facility] Evaluation + Plan note Radiology Note Date & Type Note Facility Evaluation + Plan note Future Appointments Appointment Date:02/20/2022 03:30:00 PM Scheduled Provider: Location:[facility] Appointment Type: Medicare Wellness Subsequent Future Scheduled TestsXR Abdomen 1 View 09/21/21 [facility] Evaluation note Note Date & Type Note Facility Evaluation note No Information [facility] Other Evaluation note Note Date & Type Note Facility Evaluation note No assessment information availa dinah [facility] Work Phone: History general Narrative - Reported Note Date & Type Note Facility History general Narrative - Reported Type Surgical History hysterectomy Surgical History partial colon remova l and reversal of colostomy Surgical History appendectomy [facility] Other Hospital course Narrative Note Date & Type Note Facility Hospital course Narrative No data available for this section [facility] Hospital Discharge instructions Note Date & Type Note Facility Hospital Discharge instructions No data available for this section [facility] Progress note Note Date & Type Note Facility Progress note No data available for this section [facility] Summary Purpose Family History No Family History Records FoundNo Family History Records FoundNo Family History Records FoundNo Family History Records Found Advance Directives No Advanced Directives Records Found Advance Directive Response Recorded Date/ Time Advance Directives No March 2:54pm Hospital Course Note MR#: [id number] I [facility] Pt. Name: Jarett Kebede Admitted: 07/31/2020 [...] section and content) DATE CREATED AUTHOR 08/09/2020 [facility] DATE CREATED AUTHOR AUTHOR'S ORGANIZ ATION 01/24/2022 [facility] DATE CREATED AUTHOR AUTHOR'S ORGANIZ ATION 11/28/2022 [facility] DATE CREATED AUTHOR AUTHOR'S ORGANIZ ATION 10/12/2023 Brian [facility] Care Team (unrecognized sect ion and [...] BE BASED ON THE PRIMARY CLINICAL RECORDS. [facility] [employer] [facility]. provides no warranty or guarantee of the accuracy or completeness of information in this document.
--- NOTE | 2023-11-07 14:29 | PM.PRESUREVA ---
History of Present Illness History of Present Illness Chief complaint: osteomylitis right ankle and foot Narrative: Patient presents for preadmission testing accompanied by her daughter. Please see HPI from Dr. Bryson dated 11/06/2023. Review of Systems ROS Narrative Please see ROS from Dr. Bryson dated 11/06/2023. [facility] Medical History (Updated 11/07/23 @ 14:28 by Jo Sharpe NP) Dyspnea on exertion ?R06.09 - Other forms of dyspnea (ICD-10) Nausea ?R11.0 - Nausea (ICD-10) DDD (degenerative disc disease) Neck pain ?M54.2 - Cervicalgia (ICD-10) Back pain ?M54.9 - Dorsalgia, unspecified (ICD-10) Arthritis ?M19.90 - Unspecified osteoarthritis, unspecified site (ICD-10) Insomnia ?G47.00 - Insomnia, unspecified (ICD-10) Depression ?F32.A - Depression, unspecified (ICD-10) Hearing loss ?H91.90 - Unspecified hearing loss, unspecified ear (ICD-10) COVID-19 ?U07.1 - COVID-19 (ICD-10) Colonic diverticular abscess ?K57.20 - Diverticulitis of large intestine with perforation and abscess without bleeding (ICD-10) Diverticulitis ?K57.92 - Diverticulitis of intestine, part unspecified, without perforation or abscess without bleeding (ICD-10) Hypertension ?I10 - Essential (primary) hypertension (ICD-10) Postoperative nausea and vomiting ?R11.2 - Nausea with vomiting, unspecified (ICD-10) ?Z98.890 - Other specified postprocedural states (ICD-10) Abscess ?L02.91 - Cutaneous abscess, unspecified (ICD-10) 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 - Rheumatoid lung disease with rheumatoid arthritis of unspecified site (ICD-10) Osteoarthritis ?M19.90 - Unspecified osteoarthritis, unspecified site (ICD-10) Sigmoid diverticulosis ?K57.30 - Diverticulosis of large intestine without perforation or abscess without bleeding (ICD-10) Rheumatoid arthritis ?M06.9 - Rheumatoid arthritis, unspecified (ICD-10) Pyoderma gangrenosa ?L88 - Pyoderma gangrenosum (ICD-10) Osteomyelitis, ankle and foot ?M86.9 - Osteomyelitis, unspecified (ICD-10) Surgical History (Updated 11/07/23 @ 14:04 by Jo Sharpe NP) History of colonoscopy ?Z98.890 - Other specified postprocedural states (ICD-10) H/O colectomy ?Z90.49 - Acquired absence of other specified parts of digestive tract (ICD-10) History of hysterectomy ?Z90.710 - Acquired absence of both cervix and uterus (ICD-10) History of appendectomy ?Z90.49 - Acquired absence of other specified parts of digestive tract (ICD-10) History of lung biopsy ?Z98.890 - Other specified postprocedural states (ICD-10) History of thoracentesis ?Z98.890 - Other specified postprocedural states (ICD-10) S/P debridement ?Z98.890 - Other specified postprocedural states (ICD-10) History of reversal of ileostomy ?Z98.890 - Other specified postprocedural states (ICD-10) H/O ileostomy ?Z98.890 - Other specified postprocedural states (ICD-10) Family History (Updated 11/07/23 @ 14:04 by Jo Sharpe NP) Other Bladder cancer Family history of diabetes mellitus Family history of hypertension Family history of myocardial infarction Family history of ovarian cancer Family history of stroke Social History (Updated 11/07/23 @ 13:57 by Jo Sharpe NP) Within the past year, how often did you have a drink containing alcohol: never Score interpretation: A score less than 3 is consistent with normal alcohol consumption. Smoking status: Former smoker Non-prescribed substance use: denies use Previous occupational history: Retired Highest level of school completed/degree received: high school graduate Meds Home Medications and Allergies Home Medications ?Medication ?Instructions ?Recorded ?Confirmed ?Type acetaminophen 325 mg tablet 650 mg PO Q6H PRN pain 11/07/23 11/07/23 History (Tylenol) atenolol 50 mg tablet 50 mg PO Q24H 11/07/23 11/07/23 History hydroxyzine pamoate 25 mg capsule 25 mg PO Q8H PRN anxiety 11/07/23 11/07/23 History multivitamin (Daily Multi-Vitamin 1 tab PO DAILY 11/07/23 11/07/23 History tablet) ondansetron HCl 4 mg tablet 4 mg PO Q8H PRN nausea and vomiting 11/07/23 11/07/23 History prednisone 5 mg tablet 5 mg PO DAILY 11/07/23 11/07/23 History trazodone 100 mg tablet 100 mg PO QPM 11/07/23 11/07/23 History triamterene 37.5 1 tab PO DAILY 11/07/23 11/07/23 History mg-hydrochlorothiazide 25 mg tablet Allergies Allergy/AdvReac Type Severity Reaction Status Date / Time Calcium Channel Blocking Allergy Palpitation Verified 11/07/23 13:52 Agent Dilt s cefdinir Allergy Verified 11/07/23 13:52 ciprofloxacin [From Cipro] Allergy Verified 11/07/23 13:52 latex Allergy Rash Verified 11/07/23 13:52 levofloxacin Allergy Verified 11/07/23 13:52 meloxicam Allergy itching Verified 11/07/23 13:52 methotrexate Allergy itching Verified 11/07/23 13:52 sulfamethoxazole Allergy bloody Verified 11/07/23 13:52 [From Bactrim] diarrhea trimethoprim [From Bactrim] Allergy bloody Verified 11/07/23 13:52 diarrhea vancomycin Allergy itching Verified 11/07/23 13:52 Exam Narrative Exam Narrative: Constitutional: Awake, alert, comfortable, well-appearing, nontoxic, interactive, vital signs as charted Head: Normocephalic, atraumatic Neck: Supple, normal appearance, normal range of motion, no meningeal signs, no lymphadenopathy Respiratory: No respiratory distress, breath sounds clear Cardiovascular: Regular rate and rhythm, strong and regular heart tones Psychiatric: Oriented ?3, normal affect Assessment and Plan Assessment and Plan (1) Osteomyelitis, ankle and foot: Plan Deep bone biopsy of right cuboid scheduled with Dr. Bryson 11/08/2023.
[2023-11-07 14:45] LABS: Alanine Aminotransferase 22 U/L (14-59); Albumin Globulin Ratio 0.6; Albumin Level 2.8 g/dL (3.4-5.0); Alkaline Phosphatase 82 U/L (46-116); Anion Gap 10.1; Aspartate Amino Transferase 16 U/L (15-37); BUN Creatinine Ratio 16.9; Bilirubin Total 0.3 mg/dL (0.2-1.0); Calcium 9.5 mg/dL (8.5-10.1); Carbon Dioxide 34.1 mmol/L (21.0-32.0); Chloride 102 mmol/L (98-107); Estimated GFR (African America >60 (>=60); Estimated GFR (Non-African Ame >60 (>=60); Globulin 4.5 g/dL; Glucose 120 mg/dL (74-106); Potassium 4.2 mmol/L (3.5-5.1); Sodium 142 mmol/L (136-145); Total Protein 7.3 g/dL (6.4-8.2)
== END 2023-11-07 13:31 | disposition home or self-care (01) ==
LOC: PST 13:33
PROVIDERS: PCP Family Medicine; Visit Provider Podiatrist Foot & Ankle Surgery
DX: Z01.810 Encounter for preprocedural cardiovascular examination (principal); Z01.812 Encounter for preprocedural laboratory examination; Z01.818 Encounter for other preprocedural examination; M86.9 Osteomyelitis, unspecified
CPT/HCPCS: 80053; 93005; G0463

== ENCOUNTER 2023-11-08 15:13 | Observation (INO) | payer MEDICARE, MEDICAID, SELFPAY ==
[2023-11-07 14:27] VITALS: BP 147/96; PULSE 57; TEMP 36.2; O2SAT 96; BMI 59.3
[2023-11-08] VITALS (23 sets, daily range): BP systolic 117–150; BP diastolic 65–98; PULSE 65–84; TEMP 35.8–37.1; O2SAT 87–98; BMI 59.3
--- NOTE | 2023-11-08 | FL_ITS ---
[address] [address] Patient Name: JARETT KEBEDE MRN: [id number] date: 1965 Sex: F Assigned Patient Location: SURGOUT Current Patient Location: [place] Accession/Order Number: [id number] Exam Date: 11/08/2023 12:10 Report Date: 11/13/2023 07:55 At the request of: SUNSHINE JONES Procedure: FL fluoroscopy <1hr NON-READ EXAM: FL fluoroscopy <1hr NON-READ HISTORY: TECHNIQUE: FINDINGS: Please see Operative Report. Electronically authenticated by: RADIOLOGIST NO Date: 11/13/2023 07:55
[2023-11-08 09:11] LABS: Basophils Absolute Auto 0.1 10^3/uL (0.0-0.1); Basophils Percent Auto 0.4 % (0.2-2.0); Eosinophils Absolute Auto 0.2 10^3/uL (0.0-0.7); Eosinophils Percent Auto 1.5 % (0.9-7.0); Hematocrit 45.4 % (36.0-48.0); Hemoglobin 14.2 g/dL (12.0-16.0); Immature Granulocytes Abs Auto 0.07 10^3/uL (0.00-0.03); Immature Granulocytes Pct Auto 0.6 % (0.0-0.5); Lymphocytes Absolute Auto 1.7 10^3/uL (1.2-3.8); Lymphocytes Percent Auto 15.4 % (20.5-60.0); Mean Corpuscular HGB Conc 31.3 g/dL (29.9-35.2); Mean Corpuscular Hemoglobin 28.6 pg (26.7-34.0); Mean Corpuscular Volume 91.3 fL (81.0-99.0); Mean Platelet Volume 9.7 fL (9.5-13.5); Monocytes Absolute Auto 0.8 10^3/uL (0.3-0.8); Monocytes Percent Auto 7.3 % (1.7-12.0); Neutrophils Absolute Auto 8.4 10^3/uL (1.4-6.5); Neutrophils Percent Auto 74.8 % (43.0-75.0); Platelet Count 301 10^3/uL (150-450); Red Blood Count 4.97 10^6/uL (4.20-5.40); Red Cell Distribution Width 14.6 % (11.0-15.0); White Blood Count 11.2 10^3/uL (4.0-11.0)
[2023-11-08 09:44] LABS: Glucometer 132 mg/dL (74-106)
[2023-11-08] MEDS: LACTATED RINGER'S SOLUTION 1,000 ML 50 ML IV (10:21)
--- NOTE | 2023-11-08 11:57 | PC.NURSE ---
(1150) Final timeout completed. Patient positioned on left side. Right leg draped in sterile technique per Dr. Lucero. 1154- Right popliteal block initiated. 1200- Right popliteal block completed. Patient tolerated it well. 60-20-93% and bp 134/90.
[2023-11-08] MEDS: CLINDAMYCIN PHOSPHATE/D5W 900 MG/50 ML PIGGYBACK 100 MG IV (12:05)
--- NOTE | 2023-11-08 12:22 | P.ORON_ITS ---
Brief Operative Note Date of procedure: 11/08/23 Pre-op diagnosis general: Chronic osteomyelitis right foot Post-op diagnosis: same as pre-op Procedure: PROCEDURES PERFORMED: Deep open bone biopsy of right cuboid & 4th and 5th metatarsals INDICATION FOR PROCEDURE: patient is a 58-year-old female with multiple medical comorbidities including rheumatoid arthritis and pyoderma gangrenosum who is well known to my practice. She's been seen in the past for multiple nonhealing wounds. Most recently her wounds have remained healed however she's developed pain and swelling along the lateral border of her right foot. MRI was obtained and findings were consistent with osteomyelitis of the cuboid and 4th/5th metatarsal bases. She was placed on clindamycin and her pain and swelling initially improved however earlier this week she presented to the office relating that she needed to stop the clindamycin due to diarrhea as well as return in pain and swelling to her right foot. Her skin remains intact but I recommended bone biopsy and I discussed potential risks and benefits. Consent was obtained for the above procedure INTRAOPERATIVE FINDINGS: skin is intact and mild swelling without erythema over dorsal foot. Bone of the cuboid, 4th and 5th metatarsal bases were of normal color but somewhat soft. There is no purulence or evidence of acute infection PROCEDURE IN DETAIL: Patient was identified in pre op and consent was reviewed. Correct side and site were identified and marked. Pre-op antibiotics were started. Patient was brought to OR suite and place on table in a supine position. General anesthesia was administered. Tourniquet applied. Operative extremity was prepped and draped in usual sterile fashion. Formal time-out was performed and the foot/ankle were elevated for several minutes and the tourniquet was inflated. utilizing fluoroscopy a linear incision was placed over the dorsal lateral midfoot over the cuboid. A combination sharp and blunt dissection gained access to the cuboid. utilizing rongeurs and curettes a specimen from the dorsal distal cuboid was obtained and was sent to microbiology and pathology. The incision was then extended between the 4th and 5th metatarsal bases. Dissection was then taken medially to the 4th metatarsal base and utilizing clean instrumentation specimen from the 4th metatarsal base was obtained. Dissection was then taken laterally extending the incision slightly to allow for exposure of the 5th metat arsal base. Clean its rotation was used to obtain a specimen from the 5th metatarsal base. Surgical site was irrigated with copious saline. Incision was then closed in a single layer using nonabsorbable suture. A dry sterile dressing consisting of Xeroform on the incisions followed by 4 x 4 gauze, ABDs, and Kerlix were applied. Patient tolerated the procedure and anesthesia well transferred to the recovery room with vital signs stable and brisk capillary refill to the toes. POSTOPERATIVE PLAN: Transfer to med/surg under hospitalist's care WBAT Ice and elevation Maye-op antibiotics, multimodal pain medication and DVT prophylaxis ordered Consults: physical therapy & social science teacher PICC line to be placed and will arrange for antibiotics once discharged Will follow Anesthesia: regional and General-LMA Surgeon: Jaren Bryson [facility] Consultant: Spencer Curiel Estimated blood loss (mL): 10 Pathology: other (bone from cuboid & 4th/5th metatarsals) Condition: stable Disposition: PACU
[2023-11-08] MEDS: THROMBIN (RECOMBINANT) TOPICAL 5,000 UNIT/5 ML VIAL 5000 UNIT TOPICAL (13:22)
[2023-11-08] MEDS: SURGIFOAM GEL SPONGE SIZE 100 1 EACH TOPICAL (13:24)
[2023-11-08 14:08] LABS: Glucometer 122 mg/dL (74-106)
[2023-11-08] MEDS: ONDANSETRON PF 4 MG/2 ML VIAL IV (14:10)
--- NOTE | 2023-11-08 14:10 | XR_ITS ---
The [address] [address] Patient Name: JARETT KEBEDE MRN: [id number] date: 1965 Sex: F Assigned Patient Location: [facility] Current Patient Location: [place] Accession/Order Number: [id number] Exam Date: 11/08/2023 15:00 Report Date: 11/09/2023 06:47 At the request of: ZOHRA CAPPS Procedure: XR foot RT min 3V PROCEDURE: XR foot RT min 3V HISTORY: Postop x-ray COMPARISON: XR foot right 10/01/2023 FINDINGS: BONES:Mild degenerative change of first metatarsophalangeal joint, midfoot, and mild degenerative enthesopathic spurring of the calcaneus. No fracture, dislocation, bone lesion. SOFT TISSUES:Mild soft tissue swelling and small amount of subcutaneous air consistent with recent surgery. EFFUSION:None visible. OTHER: Negative. XR/XR foot RT min 3V IMPRESSION: 1. No acute bone abnormality. 2. Mild soft tissue swelling and free air consistent with recent surgery. Electronically authenticated by: MERYL RUBY Date: 11/09/2023 06:47
--- NOTE | 2023-11-08 14:16 | PC.NURSE ---
1410: pt complaint of nausea,pt medicated with 4mg IV zofran per .
--- NOTE | 2023-11-08 15:59 | P.PN_ITS ---
<Statement entered by Huong Núñez DO - 11/09/23 09:50> This documentation has been reviewed and approved.I have also seen and assessed patient and agree to the above findings and plan of care. Progress Note: Subjective Subjective Interval history: 11/08/23 1520 This is a 58-year-old female patient of Dr Shelton who underwent a right heel bone biopsy in the OR today for suspected osteomyelitis. She is being admitted in observation to the hospitalist service overnight for PICC line placement and initiation of IV antibiotics. Dr Bryson's service (podiatry) will be on consult. At the time of my exam the patient is resting comfortably in bed. She denies any significant pain postoperatively. She denies chest pain, shortness of breath, N/V/D. Please see the podiatry service H&P and operative report for clinical course leading to this operative procedure. Exam Constitutional Vital Signs, click to edit/add: Last Vital Signs Temp 97.8 F 11/08/23 14:58 Pulse 71 11/08/23 14:58 Resp 16 11/08/23 14:58 BP 146/93 H 11/08/23 14:58 Pulse Ox 94 L 11/08/23 14:58 O2 Del Method Nasal Cannula 11/08/23 14:58 O2 Flow Rate 2 11/08/23 14:58 Common normals: no apparent distress, oriented x3 and alert General appearance: cooperative Orientation/consciousness: Yes awake [facility] Common normals: normocephalic, head/scalp atraumatic and hearing grossly normal bilaterally Eye Common normals: PERRL, EOMs intact bilaterally, conjunctivae normal and no scleral icterus General eye: normal appearance of both eyes Chest Common normals: inspection of chest normal Chest: symmetrical chest wall rise Respiratory Common normals: normal respiratory effort, no use of accessory muscles and clear to auscultation bilaterally Effort & inspection: able to speak in complete sentences Auscultation: diminished lung sounds (BLL) Cardio Common normals: regular rate, regular rhythm, S1 normal heart sound, S2 normal heart sound, no murmurs and peripheral pulses 2+ throughout GI Common normals: Normal to inspection, nondistended, normoactive bowel sounds present, soft to palpation and no hepatosplenomegaly Bladder/kidney exam: bladder normal to palpation Extremity Common normals: normal to inspection and no calf tenderness General: no clubbing, no cyanosis and no edema Right lower extremity: foot and digits (OR drsg D&I. Good CMS to toes) Neuro Common normals: CN's II-XII intact bilaterally, moves all extremities, no focal motor deficits and no sensory deficits noted Psych Common normals: mental status grossly normal Progress Note: Objective Labs Labs: Short CBC 11/08/23 Range/Units 09:06 WBC 11.2 H (4.0-11.0) 10^3/uL Hgb 14.2 (12.0-16.0) g/dL Hct 45.4 (36.0-48.0) % Plt Count 301 (150-450) 10^3/uL Progress Note: A&P Assessment and Plan (1) Osteomyelitis: Assessment and Plan: Acute * Adm observation * Defer post op antibiotics, pain management, IVF, DVT prophylaxis, WB orders to the podiatry service * PICC line placement ordered for termite control representative ABX administration * Clindamycin ordered by podiatry service for now pending final ABX choice * CBC, CMP daily (2) Rheumatoid arthritis: Assessment and Plan: Chronic * Continue home low dose prednisone daily * Pt at risk for adrenal suppression/post op hypotension * Consider solu-cortef stress dosing if clinically indicated (3) Hypertension: Assessment and Plan: Chronic * Continue home atenolol, triamterene-HCTZ (4) Anxiety: Assessment and Plan: Chronic * Continue home PRN hydroxyzine Urinary Catheter Management Urinary Catheter Management Urethral: Cath placed during this visit: no
--- NOTE | 2023-11-08 16:14 | SWNOTE1 ---
Case management spoke with pt and she has had [facility] in past for IV anbx at home. She is ok with using them if needed. SW sent face sheet and ortho note to [facility].
[2023-11-08] MEDS: ACETAMINOPHEN 500 MG TABLET 1000 MG PO (19:50)
[2023-11-08] MEDS: CLINDAMYCIN PHOSPHATE/D5W 600 MG/50 ML PIGGYBACK 100 MG IV (21:32)
[2023-11-08] MEDS: L. ACIDOPHILUS/L.BULGARICUS 1 PACKET GRAN.PACK PO (21:32)
[2023-11-08] MEDS: TRAZODONE HCL 50 MG TABLET 100 MG PO (21:33)
[2023-11-08] MEDS: PREGABALIN 75 MG CAPSULE PO (21:33)
[2023-11-09] MEDS: HYDROXYZINE PAMOATE 25 MG CAPSULE PO (01:34)
[2023-11-09 04:08] VITALS: O2SAT 93
[2023-11-09] MEDS: CLINDAMYCIN PHOSPHATE/D5W 600 MG/50 ML PIGGYBACK 100 MG IV (04:26)
[2023-11-09 04:43] VITALS: BP 137/85; PULSE 63; TEMP 36.4; O2SAT 92
[2023-11-09 04:53] LABS: Basophils Percent Auto 0.1 % (0.2-2.0); Hematocrit 43.1 % (36.0-48.0); Hemoglobin 13.7 g/dL (12.0-16.0); Immature Granulocytes Abs Auto 0.07 10^3/uL (0.00-0.03); Immature Granulocytes Pct Auto 0.7 % (0.0-0.5); Lymphocytes Absolute Auto 1.1 10^3/uL (1.2-3.8); Lymphocytes Percent Auto 10.5 % (20.5-60.0); Mean Corpuscular HGB Conc 31.8 g/dL (29.9-35.2); Mean Corpuscular Hemoglobin 28.4 pg (26.7-34.0); Mean Corpuscular Volume 89.4 fL (81.0-99.0); Mean Platelet Volume 9.5 fL (9.5-13.5); Monocytes Absolute Auto 0.5 10^3/uL (0.3-0.8); Monocytes Percent Auto 4.5 % (1.7-12.0); Neutrophils Absolute Auto 8.7 10^3/uL (1.4-6.5); Neutrophils Percent Auto 84.2 % (43.0-75.0); Platelet Count 303 10^3/uL (150-450); Red Blood Count 4.82 10^6/uL (4.20-5.40); Red Cell Distribution Width 14.3 % (11.0-15.0); White Blood Count 10.4 10^3/uL (4.0-11.0)
[2023-11-09 05:05] LABS: Estimated Average Glucose 174 mg/dL; Glycohemoglobin A1C 7.7 % (4.5-6.2)
[2023-11-09 05:22] LABS: Alanine Aminotransferase 22 U/L (14-59); Albumin Globulin Ratio 0.6; Albumin Level 2.7 g/dL (3.4-5.0); Alkaline Phosphatase 73 U/L (46-116); Anion Gap 9.6; Aspartate Amino Transferase 12 U/L (15-37); BUN Creatinine Ratio 18.2; Bilirubin Total 0.3 mg/dL (0.2-1.0); Calcium 8.7 mg/dL (8.5-10.1); Carbon Dioxide 31.6 mmol/L (21.0-32.0); Chloride 104 mmol/L (98-107); Estimated GFR (African America >60 (>=60); Estimated GFR (Non-African Ame >60 (>=60); Globulin 4.5 g/dL; Glucose 148 mg/dL (74-106); Potassium 4.2 mmol/L (3.5-5.1); Sodium 141 mmol/L (136-145); Total Protein 7.2 g/dL (6.4-8.2)
[2023-11-09 07:56] LABS: Glucometer 144 mg/dL (74-106)
[2023-11-09 08:30] VITALS: BP 147/90; PULSE 71; TEMP 36.8; O2SAT 94
[2023-11-09] MEDS: L. ACIDOPHILUS/L.BULGARICUS 1 PACKET GRAN.PACK PO (08:36)
[2023-11-09] MEDS: ATENOLOL 50 MG TABLET PO (08:36)
[2023-11-09] MEDS: PREDNISONE 5 MG TABLET PO (08:36)
[2023-11-09] MEDS: ENOXAPARIN SODIUM 40 MG/0.4 ML SYRINGE SUBQ (08:36)
[2023-11-09] MEDS: MULTIVITAMIN TABLET 1 TAB PO (08:36)
[2023-11-09] MEDS: PREGABALIN 75 MG CAPSULE PO (08:36)
--- NOTE | 2023-11-09 08:55 | SWNOTE1 ---
SW received call from [facility] and they are able to accept.
--- OUTSIDE RECORDS SUMMARY | 2023-11-09 09:17 | XMS_ITS | CCD ---
Author Organization [facility] Care Team Providers Care Special Education Supervisor Name Role Phone RI Procedure Practitioner Unavailab JEREMIAS Everett Primary Care Unavailable JOVANI GOLD Surgeon Unavailable TED VALDIVIA Attending Unavailable TED VALDIVIA Admitting Unavailable SELF, REFERRED Referring Unavailable Jeremias DAVISON Primary Care Physician Albin Bruno MD Shay Baldwin Primary Care Provider [phone] MD Shay Baldwin Attending Provider [phone] JEREMIAS DAVISON Primary Care Unavailable SUNSHINE [...] Attending Unavailable KAREN, SUNSHINE Vidal Admitting Unavailable MISC, DR ALVAREZ Consulting Unavailable [...] Admitting Unavailable SAMAN, Jeremias Moralez Attending Unavailable Ann Oro Attending Unavailable PreethiAnn marques Attending Unavailable SAMAN, Jeremias Moralez Admitting Unavailable SAMAN, Jeremias Moralez Attending Unavailable Allergies Allergy Classification Reported Allergen(s) Allergy Type Date of Onset Reaction(s) Facility (5 sources) Amoxicillin / Clavulanate; Translations: [AUGMENTIN] Drug Allergy 09-05-19 19 Illness (finding) [facility] Repository (4 sources) Calcium Channel Blockers; Translations: [calcium channel blockers] Drug allergy (disorder) 05-27-20 18 tachycardia [facility] Repository (4 sources) Contrast media; Translations: [red dye] Food allergy (disorder) 01-20-20 17 insomnia [facility] Repository (1 source) dilTIAZem; Translations: [DILTIAZEM HCL] Drug Allergy 09-12-19 19 [facility] Repository (4 sources) Latex; Translations: [LATEX] Propensity to adverse reactions (disorder) 05-31-20 17 Unknown [facility] Repository (4 sources) Sulfamethoxazole / Trimethoprim; Translations: [Bactrim] Drug Allergy 05-08-20 18 [facility] Repository (4 sources) Vancomycin; Translations: [vancomycin] Drug Allergy 05-08-20 18 [facility] Repository (4 sources) Sulfamethoxazole / Trimethoprim; Translations: [sulfamethoxazole-t rimethoprim] Drug Allergy bloody stool, Unknown [employer] Other (4 sources) Vancomycin; Translations: [vancomycin] Drug Allergy itching, Unknown [employer] Other (2 sources) Amoxicillin / Clavulanate Drug Allergy Unknown [employer] Other (2 sources) Ciprofloxacin Drug Allergy Unknown [facility] [facility] [employer] Other (3 sources) Codeine; Translations: [codeine] Drug Allergy Unknown [facility] Repository (2 sources) levoFLOXacin Drug Allergy Unknown [employer] [facility] [employer] Other (2 sources) Calcium Channel Antagonists Drug allergy Unknown [facility] Other (2 sources) cefdinir Drug Allergy 08-21-19 22 [facility] Repository (2 sources) Ciprofloxacin Drug Allergy [facility] Repository (1 source) Codeine Drug Allergy 04-07-20 14 [facility] Repository (2 sources) levoFLOXacin Drug Allergy [facility] Repository (2 sources) Calcium Channel Blocking Agents-Benzothiazep gertrudis Drug allergy (disorder) 02-23-20 16 [facility] Repository Medications Current Medications Medication Drug Class(es) Dates Sig (Normalized) Sig (Original) amitriptyline hydrochloride 50 mg oral tablet (1 source) Tricyclic Antidepressant Start: 01-10-2022 take 1 tablet by mouth once daily at bedtime amitriptyline 50 mg Tab 50 mg = 1 tab(s), Oral, Once a day (at bedtime), # 30 tab(s), Refills(s) 3, Pharmacy: [facility]/pharmacy #[id number], 160, cm, 07/31/20 7:46:00 EST, Height/Length Dosing, 145, kg, 07/31/20 7:46:00 EST, Weight Dosing Start Date: 01/10/22 Status: Ordered atenolol 50 mg oral tablet (4 sources) beta-Adrenergic Elliott Start: 11-28-2021 take 1 tablet by mouth once daily atenolol 50 mg Tab 50 mg, Oral, Daily, # 90 tab(s), Refills(s) 0, Pharmacy: [facility]/pharmacy #6177, 160, cm, 07/31/20 7:46:00 EST, [...] q12hr, # 20 cap(s), Refills(s) 0, Pharmacy: [facility]/pharmacy #6177, 160, cm, 07/31/20 7:46:00 EST, Height/Length Dosing, 145, kg, 07/31/20 7:46:00 EST, Weight Dosing Start Date: 11/29/20 Status: Ordered Colace (3 sources) Start: 01-10-2022 Colace Oral, B ID, Refills(s) 0 Start Date: 01/10/22 Status: Ordered take 1 capsule by [facility] every twenty-four hours Colace 100 MG 1 capsule as needed Orally Once a day Active doxycycline hyclate 100 mg oral capsule (1 source) Tetracycline-class Drug Start: 04-07-2021 take 1 capsule by mouth twice daily doxycycline hyclate 100 mg Cap 100 mg = 1 cap(s), Oral, BID, # 20 cap(s), Refills(s) 0, Pharmacy: [facility]/pharmacy #6177, 160, cm, 07/31/20 7:46:00 EST, [...] tab(s), Oral, Daily, 30 tab(s), Refill(s) 5, [facility]/pharmacy #6177, 160, cm, 07/31/20 7:46:00 EST, [...] anxiety, # 40 tab(s), Refills(s) 2, Pharmacy: [facility]/pharmacy #6177, 160, cm, 07/31/20 7:46:00 EST, [...] bedtime), # 45 EA, Refills(s) 1, Pharmacy: [facility]/pharmacy #6177, 160, cm, 07/31/20 7:46:00 EST, Height/Length Dosing, 145, kg, 07/31/20 7:46:00 EST, Weight Dosing Start Date: 11/11/21 Status: Ordered Start: 11-11-2021 take 1 tablet by hong th once daily at bedtime traZODONE 100 mg Tab 100 mg = 1 tab(s), Oral, Once a day (at bedtime), # 90 tab(s), Refills(s) 1, Pharmacy: [facility]/pharmacy #6177, 160, cm, 07/31/20 7:46:00 EST, [...] Resolved: 09-01-2021 Episodic Other aftercare (1 source) terminal operator (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) use of antibiotics Onset: 09-01-2021 Resolved: 09-01-2021 Episodic Other aftercare (1 source) Other roasterman (current) drug therapy; Translations: [OTH EQUAL OPPORTUNITY OFFICER CURRENT DRUG THERAPY] Onset: 08-20-2022 Episodic Superficial injury; contusion (1 source) Blister (nonthermal), right lower leg, initial encounter; Translations: [BLISTER NONTHERMAL RT LOW LEG INIT] Onset: 02-17-2022 Episodic Results Test Name Value Interpretation Reference Range Facility Consultation Noteon 11-07-19 Consultation Note [id number] #1.00TIFF Normal [facility] Consultation Noteon 10-11-19 Consultation Note [id number] #1.00TIFF Normal [facility] Consultation Noteon 10-05-19 Consultation Note [id number] #1.00TIFF Normal [facility] RAD - MRI Reporton RAD - MRI Report [id number] #1.00TIFF Normal [facility] RAD - MISCon 07-13-2023 RAD - MISC [id number] #1.00TIFF Normal [facility] RAD - CT Reporton 06-12-2023 RAD - CT Report [id number]# 1.00TIFF Normal [facility] Family Medicine Office/Clini c Noteon 05-31-2023 Family Medicine Office/Clinic Note HPI Staff Jarett is a 57 year old female presenting to [facility] Establish Care: History: Any previous diagnosis: HTN, [...] anxiety, # 40 cap(s), Refills(s) 2, Pharmacy: [facility]/pharmacy #6177, 157, cm, 05/30/23 17:31:00 EST, Height/Length Dosing hydrOXYzine, 25 mg = 1 cap(s), Oral, QID, PRN for anxiety, # 40 cap(s), Refills(s) 2, Pharmacy: [facility]/pharmacy #6177, 160.6, cm, 11/29/22 14:47:00 EDT, [...] of female genital organ: Mother. Stroke: Father. [facility] Comment on above: Result Comment: Elec tronically Signed By: Ann Glasgow\.tsering\Date and Time Signed: 05/31/23 15:38 EST Formson 05-31-2023 Forms [id number]# 1.00TIFF [facility] Consultation Noteon 12-09-19 Consultation Note [id number] #1.00CD:127 [facility] Consultation Note [id number]. [id number] #1.00CD:127 [facility] RAD - CT Reporton 12-08-2022 RAD - CT Report [id number] #1.00CD:127 Normal [facility] RAD - Ultrasound Reporton RAD - Ultrasound Report [id number] #1.00CD:127 [facility] Consultation Noteon 12-07-19 Consultation Note [id number] #1.00CD:127 Normal [facility] RAD - CT Reporton 12-06-2022 RAD - CT Report [id number] #1.00CD:127 [facility] RAD - MISCon 12-06-2022 RAD - MISC [id number] #1.00CD:127 [facility] RAD - Ultrasound Reporton RAD - Ultrasound Report [id number] #1.00CD:127 [facility] Provider Letteron 12-04-2022 Provider Letter December 04, 2022 JARETT KEBEDE [address] [place] [id number] : 1965 To Whom It May Concern, Please excuse above patient from work. Date of Illness: From: _ 12/02/2022 To: _ 12/04/2022 May Return to Work On: 12/05/2022 Restrictions: _ Comments: _ Sincerely, Dr. Jeremias Davison DO [address] [place] [address] [facility] Physician Referralon 023 Physician Referral [id number]#1.00CD:127 [facility] Reminderson 12-01-2022 Reminders - From: Jeremias [...] 14.2 % (14.0 - 50.0) 11/29/2022 18:08 Harvey Auto 5.8 % (4.0 - 14.0) 11/29/2022 18:08 Eos Auto 0.7 % (0.0 - 8.0) 11/29/2022 18:08 Basophil Auto 0.4 % (0.0 - 2.0) 11/29/2022 18:08 Neutro Absolute ((H)) 8.3 E9/L (2.0 - 7.5) 11/29/2022 18:08 Lymph Absolute 1.5 E9/L (1.0 - 4.0) 11/29/2022 18:08 Harvey Absolute 0.6 E9/L (0.2 - 1.0) 11/29/2022 [...] CB with any questions. Thank you Normal [facility] Auto Diffon 11-30-2022 Basophils/100 WBC (Bld) 0.4 % Normal 0.0-2.0 [facility] Comment on above: Order Comment: Order Added by Discern Expert. Performed By: #### 2 459837, 2077214, 9383778, 3373037, 65479019 ####[facility] [address] [place] [address] Basophils/Leukocytes Auto (Bld) [Pure # fraction] 0.0 E9/L Normal 0.0-0.2 [facility] Comment on above: Order Comment: Order Added by Discern Expert. Performed By: #### 2 946176, 6364157, 5079909, 3159597, 57090911 ####[facility] [address] [place] [address] Eosinophils/100 WBC (Bld) 0.7 % Normal 0.0-8.0 [facility] Comment on above: Order Comment: Order Added by Discern Expert. Performed By: #### 2 287304, 8891359, 4935780, 3035282, 00904639 ####[address] [place] [address] Eosinophils/Leukocytes Auto (Bld) [Pure # fraction] 0.1 E9/L Normal 0.0-0.5 [facility] Comment on above: Order Comment: Order Added by Discern Expert. Performed By: #### 2 042979, 9127586, 5928264, 8507719, 49231164 ####[facility] [address] [place] [address] Lymphocytes/100 WBC (Bld) 14.2 % Normal 14.0-50.0 [facility] Comment on above: Order Comment: Order Added by Discern Expert. Performed By: #### 2 603480, 5159658, 9301399, 8013117, 11447722 ####[facility] [address] [place] [address] Lymphocytes/Leukocytes Auto (Bld) [Pure # fraction] 1.5 E9/L Normal 1.0-4.0 [facility] Comment on above: Order Comment: Order Added by Discern Expert. Performed By: #### 2 289777, 5564808, 9181365, 4182201, 81355314 ####[address] [place] [address] Monocytes/100 WBC (Bld) 5.8 % Normal 4.0-14.0 [facility] Comment on above: Order Comment: Order Added by Discern Expert. Performed By: #### 2 051328, 8866144, 4354296, 4226778, 60184238 ####[address] [address] Monocytes/Leukocytes Auto (Bld) [Pure # fraction] 0.6 E9/L Normal 0.2-1.0 [facility] Comment on above: Order Comment: Order Added by Discern Expert. Performed By: #### 2 795657, 5332829, 1750365, 4631188, 08560094 ####[address] [address] Neutrophils/100 WBC (Bld) 78.9 % High 36.0-75.0 [facility] Comment on above: Order Comment: Order Added by Discern Expert. Performed By: #### 2 793676, 8921949, 1725174, 7468873, 06444977 ####[facility] [address] [place] [address] Neutrophils/Leukocytes Auto (Bld) [Pure # fraction] 8.3 E9/L High 2.0-7.5 [facility] Comment on above: Order Comment: Order Added by Discern Expert. Performed By: #### 2 715072, 9840455, 0960731, 6926501, 87848539 ####[facility] [address] [place] [address] CBC w/ Auto Diffon 3 Erythrocyte distribution width (RBC) [Ratio] 15.1 % High 10.9-14.2 [facility] Comment on above: Performed By: #### 2 182021, 7288361, 3839347, 4486667, 97149951 ####[address] [address] Hematocrit (Bld) [Volume fraction] 45.9 % Normal 34.0-46.0 [facility] Comment on above: Performed By: #### 2 647857, 3314164, 9666621, 3014722, 70205024 ####[address] [place] Hemoglobin (Bld) [Mass/Vol] 14.8 g/dL Normal 12.0-16.0 [facility] Comment on above: Performed By: #### 2 779105, 6442059, 0608645, 2997889, 27010633 ####[address] [address] MCH (RBC) [Entitic mass] 29.3 pg Normal 27.0-34.0 [facility] Comment on above: Performed By: #### 2 528629, 2432747, 7549002, 8736032, 06798383 ####[address] [address] MCHC (RBC) [Mass/Vol] 32.3 g/dL Normal 31.4-36.0 [facility] Comment on above: Performed By: #### 2 972133, 7436018, 3201590, 4611071, 05173435 ####[address] [address] MCV (RBC) [Entitic vol] 90.7 fL Normal 80.0-100.0 [facility] Comment on above: Performed By: #### 2 583947, 0851175, 8290347, 0947038, 05915284 ####[address] [address] Platelet mean volume (Bld) [Entitic vol] 9.4 fL Normal 6.4-10.8 [facility] Comment on above: Performed By: #### 2 151018, 5594204, 5446982, 4733781, 52088660 ####[address] [place] [address] Platelets (Bld) [#/Vol] 269.0 E9/L Normal 150.0-500.0 [facility] Comment on above: Performed By: #### 2 130168, 8113064, 8667250, 6364251, 17981643 ####[address] [address] RBC (Bld) [#/Vol] 5.1 E12/L Normal 4.3-5.9 [facility] Comment on above: Performed By: #### 2 683388, 3598329, 4959014, 8805447, 22982697 ####[address] [address] WBC corrected for nucl RBC Auto (Bld) [#/Vol] 10.6 E9/L Normal 4.0-11.0 [facility] Comment on above: Performed By: #### 2 506488, 2172083, 5343735, 3047351, 15315694 ####[address] [address] CMPon 11-30-2022 Albumin [Mass/Vol] 3.2 g/dL Low 3.3-5.0 [facility] Comment on above: Performed By: #### 2 375974, 6670740, 6700751, 8383666, 71446083 ####[address] [address] Albumin/Globulin (S) [Mass conc ratio] 0.9 Low 1.1-2.2 [facility] Comment on above: Performed By: #### 2 635404, 1645061, 4117439, 3392101, 99925735 ####[address] [place] [address] ALP [Catalytic activity/Vol] 70 Int._Unit/L Normal 21-98 [facility] Comment on above: Performed By: #### 2 837833, 3629595, 9593718, 0561233, 01930712 ####[facility] [address] [place] [address] ALT No additional P-5'-P [Catalytic activity/Vol] 19 Int._Unit/L Normal 6-46 [facility] Comment on above: Performed By: #### 2 716700, 3310215, 7321613, 8618235, 89154165 ####[facility] [address] [place] [address] Anion gap [Moles/Vol] 15 mmol/L Normal 6-16 [facility] Comment on above: Performed By: #### 2 757694, 2622482, 3852927, 6033372, 81210511 ####[facility] [address] [place] [address] AST [Catalytic activity/Vol] 15 Int._Unit/L Normal 5-43 [facility] Comment on above: Performed By: #### 2 043413, 2890263, 6762521, 9164386, 84391394 ####[facility] [address] [place] [address] Bilirubin [Mass/Vol] 0.3 mg/dL Normal 0.0-1.1 [place] Comment on above: Performed By: #### 2 515334, 7774076, 3081688, 3219846, 70866151 ####[facility] [address] [place] [address] Calcium [Mass/Vol] 9.1 mg/dL Normal 8.9-11.1 [facility] Comment on above: Performed By: #### 2 071432, 9511848, 4528670, 0856843, 52541256 ####[address] [place] [address] Chloride [Moles/Vol] 100 mmol/L Low 101-111 [facility] Comment on above: Performed By: #### 2 025729, 4683287, 5281169, 6461171, 64453070 ####[facility] [address] [place] [address] CO2 [Moles/Vol] 30 mmol/L Normal 21-31 [facility] Comment on above: Performed By: #### 2 322494, 2251086, 9623518, 1654138, 42691069 ####[facility] [address] [place] [address] Creatinine [Mass/Vol] 0.8 mg/dL Normal 0.5-1.3 [facility] Comment on above: Performed By: #### 2 172063, 1297383, 3672472, 0057219, 08214869 ####[facility] [address] [place] [address] Globulin (S) [Mass/Vol] 3.5 g/dL Normal 1.4-4.0 [facility] Comment on above: Performed By: #### 2 004969, 8789373, 3871382, 9901350, 89497146 ####[facility] [address] [place] [address] Glucose [Mass/Vol] 123 mg/dL Normal 55-199 [facility] Comment on above: Result Comment: If t his glucose result represents a fasting glucose, interpretation should refer to the following reference range: 55-99 mg/dL Performed By: #### 2 911448, 7097321, 5164260, 4043370, 80456114 ####[facility] [address] [place] [address] Potassium [Moles/Vol] 3.9 mmol/L Normal 3.5-5.3 [facility] Comment on above: Performed By: #### 2 063573, 3846259, 6294222, 6437968, 16533302 ####[facility] [address] [place] [address] Protein [Mass/Vol] 6.7 g/dL Normal 6.0-7.8 [facility] Comment on above: Performed By: #### 2 793853, 7167330, 2343233, 5108103, 49876190 ####[facility] [address] [place] [address] Sodium [Moles/Vol] 141 mmol/L Normal 135-145 [facility] Comment on above: Performed By: #### 2 891555, 8854463, 4317814, 1123974, 31629643 ####[facility] [address] [place] [address] Urea nitrogen [Mass/Vol] 20 mg/dL Normal 5-21 [facility] Comment on above: Performed By: #### 2 714503, 9689680, 0995684, 3734067, 14392746 ####[facility] [address] [place] [address] Urea nitrogen/Creatinine [Mass ratio] 25 No Units High 10-20 [facility] Comment on above: Performed By: #### 2 005590, 0238643, 3695053, 1990056, 92027426 ####[facility] [address] [place] [address] CRPon 11-30-2022 CRP [Mass/Vol] 1.6 mg/dL Normal <=1.9 [facility] Comment on above: Performed By: #### 2 333488, 3163706, 4022337, 2506377, 64168483 ####[facility] [address] [place] [address] Family Medicine Office/Clini c Noteon 11-30-2022 Family [...] a CT of her abdomen completed at [facility] in 2020. States she did have labs drawn in August at [facility]. Also states she has had chronic itching [...] CBC w/ Auto Diff Comprehensive Metabolic Panel [facility] External Ambulatory Referral Lab Specimen Collect 35556 US Gallbladder 2. Dyskinesia of gallbladder (K82.8: Other specified diseases of gallbladder) Ordered: C-Reactive Protein CBC w/ Auto Diff Comprehensive Metabolic Panel [facility] External Ambulatory Referral Lab Specimen Collect 52808 US Gallbladder 3. Pruritic condition (L29.9: Pruritus, unspecified) Ordered: C-Reactive Protein CBC w/ Auto Diff Comprehensive Metabolic Panel [facility] External Ambulatory Referral Lab Specimen Collect 70214 US Gallbladder Orders: amitriptyline, 50 mg = 1 tab(s), Oral, Once a day (at bedtime), # 30 tab(s), Refills(s) 3, [facility] 160, cm, 07/31/20 7:46:00 EST, Height/Length Dosing, 145, kg, 07/31/20 7:46:00 EST, Weight Dosing cephalexin, 500 mg = 1 cap(s), Oral, q12hr, # 20 cap(s), Refills(s) 0, Pharmacy: [facility]/pharmacy #6177, 160.6, cm, 11/29/22 14:47:00 EDT, Height/Length Dosing colesevelam, 3.75 gm = 1 EA, Oral, Daily, # 30 EA, Refills(s) 0, [facility], 160.6, cm, 11/29/22 14:47:00 EDT, Height/Length Dosing hyoscyamine, 0.125 mg = 1 tab(s), Oral, QID, PRN for spasm, dicyclomine ineffective, # 40 tab(s), Refills(s) 0, Pharmacy: [facility]/pharmacy #6177, 160.6, cm, 11/29/22 14:47:00 EDT, Height/Length Dosing ondansetron, 4 mg = 1 tab(s), Oral, q8hr, PRN Nausea/Vomiting, # 12 tab(s), Refills(s) 0, [facility], 160.6, cm, 11/29/22 14:47:00 EDT, Height/Length Dosing ondansetron, 4 mg = 1 tab(s), Oral, q8hr, PRN Nausea/Vomiting, # 12 tab(s), Refills(s) 0, Pharmacy: [facility]/pharmacy #6177, 160, cm, 07/31/20 7:46:00 EST, Height/Length Dosing, 145, kg, 07/31/20 7:46:00 EST, Weight Dosing Follow-up With When Contact Information Jeremias DAVISON DO, FAM Only if needed [address] [place] [address]- Additional Instructions: Problem List/Past Medical History Ongoing Dyskinesia of gallbladder Generalized anxiety disorder Hypertension Morbid obesity Pruritic condit (more content not included)... Normal [facility] Comment on above: Result Comment: Elec tronically Signed By: Jeremias DAVISON DO\.br\Date and Time Signed: 11/29/22 22:31 EDT eGFRon 11-30-2022 GFR/1.73 sq M.predicted among non-blacks MDRD (S/P/Bld) [Vol rate/Area] 85 mL/min/1.73 m2 Normal >=59 [facility] Comment on above: Order Comment: Order added by Discern Expert. Result Comment: Staff Development Nurse tammi kidney disease could be indicated at eGFR's of less than 60 mL/min/1.73m2. Kidney failure is indicated at less than 15 mL/min/1.73m2. Performed By: #### 2 481178, 8305512, 8410064, 3628069, 36748827 ####[facility] [address] [place] [address] Provider Letteron 11-29-2022 Provider Letter November 29, 2022 JARETT KEBEDE [address] [place] [id number] : 1965 To Whom It May Concern, Please excuse above patient from work. Date of Illness: From: _11/29/2022 To: _12/01/2022 May Return to Work On:12/01/2022 Sincerely, Jeremias Davison DO [facility] [address] [place] [address] [facility] Pre-Visit Planningon 023 Pre-Visit Planning - From: Viji Fisher RN To: Jeremias DAVISON DO; Sent: 11/28/2022 08:55:28 EDT Subject: Pre-Visit Planning Due Date/Time: 11/28/2022 08:55:00 EDT Caller Name: JARETT KEBEDE; Caller Number: H , M Ar Dr. Davison *Based on your response below, [...] peripheral vascular disease 08/24/2021 [facility] report: [facility]- L02.415 Cutaneous abscess of right lower limb [...] feel free to contact me at extension [phone]. Thank you! ESPERANZA Greer, RN, CCM, CCDS, CCDS-O - From: Jeremias DAVISON DO To: Viji Fisher RN; Sent: 11/28/2022 10:51:33 EDT Subject: RE: Pre-Visit Planning Caller Name: JARETT KEBEDE; Caller Number: Kareem , M I am not sure. I have not seen for awhile Normal [address] [facility] CBC AUTO DIFFon 08-17-2022 BASO # 0.1 103/ul Normal 0.0-0.1 [facility] Comment on above: Performed By: #### C BC #### [facility] [address] [place], [place] [address] Dr. Rox Us Basophils/100 WBC (Bld) 0.4 % Normal 0.2-2.0 [facility] Comment on above: Performed By: #### C BC #### [facility] [address] [place] [address] [address] Rox Us EO # 0.2 103/ul Normal 0.0-0.7 [facility] Comment on above: Performed By: #### C BC #### [facility] [address] [place] [address] [address] Rox Us Eosinophils/100 WBC (Bld) 1.5 % Normal 0.9-7.0 [facility] Comment on above: Performed By: #### C BC #### [facility] [address] [place] [address] [address] Rox Us Erythrocyte distribution width (RBC) [Ratio] 15.4 % Critically high 11.0-15.0 [facility] Center Comment on above: Performed By: #### C BC #### [facility] [address] [address] [address] Rox Us Hematocrit (Bld) [Volume fraction] 51.3 % Critically high 36.0-48.0 [facility] Comment on above: Performed By: #### C BC #### [facility] [id number] Rox Us Hemoglobin (Bld) [Mass/Vol] 15.7 g/dL Normal 12.0-16.0 [facility] Comment on above: Performed By: #### C BC #### [facility] [id number] Rox Us IG # 0.07 10e3/ul Critically high 0.00-0.03 [facility] Comment on above: Performed By: #### C BC #### [facility] [address] [address] [address] Rox Us IG % 0.6 % Critically high 0.0-0.5 [facility] Comment on above: Performed By: #### C BC #### [facility] [address] [address] [address] Rox Us LYMPH # 1.8 103/ul Normal 1.2-3.8 [facility] Comment on above: Performed By: #### C BC #### [facility] [address] [place] [address] Dr. Rox Us Lymphocytes/100 WBC (Bld) 15.2 % Critically low 20.5-60.0 [facility] Comment on above: Performed By: #### C BC #### [facility] [address] [place] [address] Dr. Rox Us MANUAL DIFF REQ NO Normal [facility] Comment on above: Performed By: #### C BC #### [facility] [address] [place] [address] Dr. Rox Us MCH (RBC) [Entitic mass] 28.6 pg Normal 26.7-34.0 [facility] Comment on above: Performed By: #### C BC #### [facility] [address] [place] [address] Dr. Rox Us MCHC (RBC) [Mass/Vol] 30.6 g/dL Normal 29.9-35.2 [facility] Comment on above: Performed By: #### C BC #### [facility] [address] [place] [address] Dr. Rox Us MCV (RBC) [Entitic vol] 93.6 fL Normal 81.0-99.0 [facility] Comment on above: Performed By: #### C BC #### [facility] [address] [place] [address] Dr. Rox Us MONO # 0.8 103/ul Normal 0.3-0.8 [facility] Comment on above: Performed By: #### C BC #### [facility] [address] [address] [address] Rox Us Monocytes/100 WBC (Bld) 7.2 % Normal 1.7-12.0 [facility] Comment on above: Performed By: #### C BC #### [facility] [address] [address] [address] Rox Us NEUT # 8.8 103/ul Critically high 1.4-6.5 [facility] Comment on above: Performed By: #### C BC #### [facility] [address] [address] [address] Rox Us Neutrophils/100 WBC (Bld) 75.1 % Critically high 43.0-75.0 [facility] Comment on above: Performed By: #### C BC #### [facility] [address] [place] [address] Dr. Rox Us Platelet mean volume (Bld) [Entitic vol] 9.5 fL Normal 9.5-13.5 [facility] Comment on above: Performed By: #### C BC #### [facility] [address] [address] [address] Rox Us PLT 302 103/ul Normal 150-450 [facility] Comment on above: Performed By: #### C BC #### [facility] [address] [place] [address] Dr. Rox Us RBC 5.48 106/ul Critically high 4.20-5.40 [facility] Comment on above: Performed By: #### C BC #### [facility] [address] [place] [address] Dr. Rox Us WBC 11.7 103/ul Critically high 4.0-11.0 [facility] Comment on above: Performed By: #### C BC #### [facility] [address] [place] [address] Dr. Rox Us PROF 14(COMP METB)on 023 Albumin [Mass/Vol] 3.1 g/dL Critically low 3.4-5.0 [facility] Comment on above: Performed By: #### C MP #### [facility] [address] [address] [address] Rox Us Albumin/Globulin [Mass ratio] 0.7 {ratio} Normal [facility] Comment on above: Performed By: #### C MP #### [facility] [address] [address] [address] Rox Us ALP [Catalytic activity/Vol] 87 U/L Normal 46-116 [facility] Comment on above: Performed By: #### C MP #### [facility] [address] [address] [address] Rox Us ALT [Catalytic activity/Vol] 24 U/L Normal 14-59 [facility] Comment on above: Performed By: #### C MP #### [facility] [address] [place] [address] Dr. Rox Us Anion gap [Moles/Vol] 8.5 mmol/L Normal [facility] Comment on above: Performed By: #### C MP #### [facility] [address] [place] [address] Dr. Rox Us AST [Catalytic activity/Vol] 14 U/L Critically low 15-37 [facility] Comment on above: Performed By: #### C MP #### [facility] [address] [place] [address] Dr. Rox Us Bilirubin [Mass/Vol] 0.3 mg/dL Normal 0.2-1.0 [facility] Comment on above: Performed By: #### C MP #### [facility] [address] [place] [address] Dr. Rox Us Calcium [Mass/Vol] 9.3 mg/dL Normal 8.5-10.1 [facility] Comment on above: Performed By: #### C MP #### [facility] [address] [place] [address] Dr. Rox Us Chloride [Moles/Vol] 102 mmol/L Normal 98-107 [facility] Comment on above: Performed By: #### C MP #### [facility] [address] [address] [address] Rox Us CO2 [Moles/Vol] 34.6 mmol/L Critically high 21.0-32.0 [facility] Comment on above: Performed By: #### C MP #### [facility] [address] [place] [address] Dr. Rox Us Creatinine [Mass/Vol] 0.76 mg/dL Normal 0.55-1.02 [facility] Comment on above: Performed By: #### C MP #### [facility] [address] [place] [address] Dr. Rox Us EGFR-AF IRISH >60 Normal >=60 [facility] Comment on above: Performed By: #### C MP #### [facility] [address] [place] [address] Dr. Rox Us EGFR-NON AF IRISH >60 Normal >=60 [facility] Comment on above: Performed By: #### C MP #### [facility] [address] [place] [address] Dr. Rox Us Globulin (S) [Mass/Vol] 4.3 g/dL Normal [facility] Comment on above: Performed By: #### C MP #### [facility] [address] [place] [address] Dr. Rox Us Glucose [Mass/Vol] 125 mg/dL Critically high 74-106 [facility] Comment on above: Performed By: #### C MP #### [facility] [address] [place] [address] Dr. Rox Us Potassium [Moles/Vol] 4.1 mmol/L Normal 3.5-5.1 [facility] Comment on above: Performed By: #### C MP #### [facility] [address] [place] [address] Dr. Rox Us Protein [Mass/Vol] 7.4 g/dL Normal 6.4-8.2 [facility] Comment on above: Performed By: #### C MP #### [facility] [address] [place] [address] Dr. Rox Us Sodium [Moles/Vol] 141 mmol/L Normal 136-145 [facility] Comment on above: Performed By: #### C MP #### [facility] [address] [address] [address] Rox Us Urea nitrogen [Mass/Vol] 21.0 mg/dL Critically high 7.0-18.0 [facility] Comment on above: Performed By: #### C MP #### [facility] [address] [address] [address] Rox Us Urea nitrogen/Creatinine [Mass ratio] 27.6 mg/mg Normal [facility] Comment on above: Performed By: #### C MP #### [facility] [address] [place] [address] Dr. Rox Us SED RATE [facility] 2022 SED RATE 52 mm/hr Critically high <=30 [facility] Comment on above: Performed By: #### S EDR #### [facility] [address] [place] [address] Dr. Rox Us Albumin [Mass/volume] in Ser um or PlasmaOrdered By: Juan Carlos Baldwin on 01-12-2022 Albumin [Mass/Vol] 3.2 g/dL 3.2-5.5 [facility] Basophils Auto (Bld) [#/Vol] Ordered By: Juan Carlos Baldwin on 01-12-2022 Basophils (Bld) [#/Vol] 0.1 10*3/uL 0.0-0.2 [facility] Basophils/100 WBC Auto (Bld) Ordered By: Juan Carlos Baldwin on 01-12-2022 Basophils/100 WBC (Bld) 0.5 % [facility] Blood hemoglobin measurement (mass/volume)Ordered By: Juan Carlos Baldwin on 01-12-2022 Hemoglobin (Bld) [Mass/Vol] 13.8 g/dL 11.8-15.4 [facility] Blood leukocytes automated c ount (number/volume)Ordered By: Juan Carlos Baldwin on 01-12-2022 WBC (Bld) [#/Vol] 9.7 10*3/uL 4.5-11.0 [facility] Complete Blood Count Auto Di ffon 01-12-2022 Basophils (Bld) [#/Vol] 0.1 10*3/uL Normal 0.0-0.2 [facility] Comment on above: Performed By: #### C BC, CMP, ESR #### [facility] [address] [place] [address] [place] Basophils/100 WBC (Bld) 0.5 % Normal . [facility] Comment on above: Performed By: #### C BC, CMP, ESR #### [facility] [address] [place] [address] [place] Eosinophils (Bld) [#/Vol] 0.2 10*3/uL Normal 0.0-0.45 [facility] Comment on above: Performed By: #### C BC, CMP, ESR #### [facility] [address] [place] [address] [place] Eosinophils/100 WBC (Bld) 1.8 % Normal . [facility] Comment on above: Performed By: #### C BC, CMP, ESR #### [facility] [address] [place] [address] [place] Erythrocyte distribution width (RBC) [Ratio] 17.4 % High 11.9-15.3 [facility] Comment on above: Performed By: #### C BC, CMP, ESR #### [facility] [address] [place] [address] [place] Hematocrit (Bld) [Volume fraction] 42.7 % Normal 34.0-46.4 [facility] Comment on above: Performed By: #### C BC, CMP, ESR #### [facility] [address] [place] [address] [place] Hemoglobin (Bld) [Mass/Vol] 13.8 g/dL Normal 11.8-15.4 [facility] Comment on above: Performed By: #### C BC, CMP, ESR #### [facility] [address] [place] [address] [place] Lymphocytes (Bld) [#/Vol] 1.8 10*3/uL Normal 1.00-4.8 [facility] Comment on above: Performed By: #### C BC, CMP, ESR #### [facility] [address] [place] [address] [place] Lymphocytes/100 WBC (Bld) 18.3 % Normal . [facility] Comment on above: Performed By: #### C BC, CMP, ESR #### [facility] [address] [place] [address] [place] MCH (RBC) [Entitic mass] 27.4 pg Normal 24.7-34.3 [facility] Comment on above: Performed By: #### C BC, CMP, ESR #### [facility] [address] MCV (RBC) [Entitic vol] 84.5 fL Normal 80-100 [facility] Comment on above: Performed By: #### C BC, CMP, ESR #### [facility] [address] Mean Corpuscular HGB Conc 32.4 g/dL Normal 32.0-35.0 [facility] Comment on above: Performed By: #### C BC, CMP, ESR #### [facility] [address] [place] [address] [place] Monocytes (Bld) [#/Vol] 0.6 10*3/uL Normal 0.0-0.8 [facility] Comment on above: Performed By: #### C BC, CMP, ESR #### [facility] [address] [place] [address] [place] Monocytes/100 WBC (Bld) 6.5 % Normal . [facility] Comment on above: Performed By: #### C BC, CMP, ESR #### [facility] [address] [place] [address] [place] Neutrophils (Bld) [#/Vol] 7.1 10*3/uL Normal 1.8-7.7 [facility] Comment on above: Performed By: #### C BC, CMP, ESR #### [facility] [address] [place] [address] [place] Neutrophils/100 WBC (Bld) 72.9 % Normal . [facility] Comment on above: Performed By: #### C BC, CMP, ESR #### [facility] [address] Nucleated RBC/100 WBC (Bld) [Ratio] 0.1 % Normal 0-0.5 [facility] Comment on above: Performed By: #### C BC, CMP, ESR #### [address] Platelet mean volume (Bld) [Entitic vol] 8.1 fL Normal 6.3-10.7 [facility] Comment on above: Performed By: #### C BC, CMP, ESR #### [address] Platelets (Bld) [#/Vol] 341 10*3/uL Normal 150-450 [facility] Comment on above: Performed By: #### C BC, CMP, ESR #### [address] RBC (Bld) [#/Vol] 5.06 10*6/uL High 3.60-5.00 [facility] Comment on above: Performed By: #### C BC, CMP, ESR #### [address] WBC (Bld) [#/Vol] 9.7 10*3/uL Normal 4.5-11.0 [facility] Comment on above: Performed By: #### C BC, CMP, ESR #### [address] Comprehensive Metabolic Pane lola 01-12-2022 Albumin [Mass/Vol] 3.2 g/dL Normal 3.2-5.5 [facility] Comment on above: Performed By: #### C BC, CMP, ESR #### [address] Albumin/Globulin [Mass ratio] 0.9 {ratio} Normal [facility] Comment on above: Performed By: #### C BC, CMP, ESR #### [address] ALP [Catalytic activity/Vol] 76 U/L Normal 32-92 [facility] Comment on above: Result Comment: PERF ORMED BY: [place] [address] PATHOLOGIST [employer] CRYSTAL SPRING M.D. Performed By: #### C BC, CMP, ESR #### [facility] [address] [place] [address] [place] ALT [Catalytic activity/Vol] 15 U/L Normal 10-60 [facility] Comment on above: Performed By: #### C BC, CMP, ESR #### [facility] [address] AST [Catalytic activity/Vol] 16 U/L Normal 10-42 [facility] Comment on above: Performed By: #### C BC, CMP, ESR #### [facility] [address] [place] [address] Bilirubin [Mass/Vol] 0.4 mg/dL Normal 0.3-1.2 [facility] Comment on above: Performed By: #### C BC, CMP, ESR #### [facility] [address] [place] [address] [place] Calcium [Mass/Vol] 9.6 mg/dL Normal 8.2-10.2 [facility] Comment on above: Performed By: #### C BC, CMP, ESR #### [facility] [address] [place] [address] [place] Chloride [Moles/Vol] 98 mmol/L Normal 95-114 [facility] Comment on above: Performed By: #### C BC, CMP, ESR #### [facility] [address] [place] [address] [place] CO2 [Moles/Vol] 29.4 mmol/L Normal 22.0-30.0 [facility] Comment on above: Performed By: #### C BC, CMP, ESR #### [facility] [address] [place] [address] [place] Creatinine [Mass/Vol] 0.84 mg/dL Normal 0.44-1.03 [facility] Comment on above: Performed By: #### C BC, CMP, ESR #### [facility] [address] Estimated GFR ( Perla > 60 [facility] Comment on above: Result Comment: GFR estimated reference range: According to KDOQI guidelines, <60 ml/min/1.73m2 is sufficient to diagnose a patient with chronic kidney disease. Performed By: #### C BC, CMP, ESR #### [facility] [address] Estimated GFR (Non- Am > 60 [facility] Comment on above: Performed By: #### C BC, CMP, ESR #### [address] Globulin (S) [Mass/Vol] 3.7 g/dL [facility] Comment on above: Performed By: #### C BC, CMP, ESR #### [address] Glucose [Mass/Vol] 115 mg/dL High 70-100 [facility] Comment on above: Result Comment: [place] Glucose Reference Range is dependent on time and content of last meal. Glucose of more than 200 mg/dL in a nonstressed, ambulatory subject supports the diagnosis of Diabetes Mellitus. ADA recommended reference range Performed By: #### C BC, CMP, ESR #### [address] Potassium [Moles/Vol] 5.0 mmol/L Normal 3.5-5.1 [facility] Comment on above: Performed By: #### C BC, CMP, ESR #### [address] Protein [Mass/Vol] 6.9 g/dL Normal 6.1-7.9 [facility] Comment on above: Performed By: #### C BC, CMP, ESR #### [address] Sodium [Moles/Vol] 140 mmol/L Normal 136-146 [facility] Comment on above: Performed By: #### C BC, CMP, ESR #### [facility] [address] Urea nitrogen [Mass/Vol] 17 mg/dL Normal 9-23 [facility] Comment on above: Performed By: #### C BC, CMP, ESR #### [facility] [address] Creatinine and Glomerular fi ltration rate.predicted panel (S/P/Bld)Ordered By: Juan Carlos Baldwin on 01-12-2022 Creatinine [Mass/Vol] 0.84 mg/dL 0.44-1.03 [facility] Eosinophils Auto (Bld) [#/Vo l]Ordered By: Juan Carlos Baldwin on 01-12-2022 Eosinophils (Bld) [#/Vol] 0.2 10*3/uL 0.0-0.45 [facility] Eosinophils/100 WBC Auto (Bl d)Ordered By: Juan Carlos Baldwin on 01-12-2022 Eosinophils/100 WBC (Bld) 1.8 % [facility] Erythrocyte Sedimentation Ra daysi 01-12-2022 ESR (Bld) [Velocity] 47 mm/h High 0- [facility] Comment on above: Result Comment: PERF ORMED BY: [place] [address] PATHOLOGIST [employer] FILLER CRYSTAL SPRNIG M.D. Performed By: #### C BC, CMP, ESR #### [facility] [address] [place] [address] Erythrocyte distribution wid th Auto (RBC) [Ratio]Ordered By: Juan Carlos Baldwin on 01-12-2022 Erythrocyte distribution width (RBC) [Ratio] 17.4 % 11.9-15.3 [facility] Erythrocyte sedimentation ra te by Photometric methodOrdered By: Juan Carlos Baldwin on 01-12-2022 ESR Photometric method (Bld) [Velocity] 47 mm/hr 0 [facility] Estimated glomerular filtrat ion rate (GFR) non- AmericanOrdered By: Juan Carlos Baldwin on 01-12-2022 GFR/1.73 sq M.predicted among non-blacks MDRD (S/P/Bld) [Vol rate/Area] > 60 mL/Min [facility] Globulin Calc (S) [Mass/Vol] Ordered By: Juan Carlos Baldwin on 01-12-2022 Globulin (S) [Mass/Vol] 3.7 g/dL [facility] Hematocrit Auto (Bld) [Volum e fraction]Ordered By: Juan Carlos Baldwin on 01-12-2022 Hematocrit (Bld) [Volume fraction] 42.7 % 34.0-46.4 [facility] - Hematology and Cell countsOrdered By: Juan Carlos Baldwin on 01-12-2022 Nucleated RBC/100 WBC (Bld) [Ratio] 0.1 % 0-0.5 [facility] Lymphocytes Auto (Bld) [#/Vo l]Ordered By: Juan Carlos Baldwin on 01-12-2022 Lymphocytes (Bld) [#/Vol] 1.8 10*3/uL 1.00-4.8 [facility] Lymphocytes/100 WBC Auto (Bl d)Ordered By: Juan Carlos Baldwin on 01-12-2022 Lymphocytes/100 WBC (Bld) 18.3 % [facility] MCH Auto (RBC) [Entitic mass ]Ordered By: Juan Carlos Baldwin on 01-12-2022 MCH (RBC) [Entitic mass] 27.4 pg 24.7-34.3 [facility] MCHC Auto (RBC) [Mass/Vol]Or dered By: Juan Carlos Baldwin on 01-12-2022 MCHC (RBC) [Mass/Vol] 32.4 g/dL 32.0-35.0 [facility] MCV Auto (RBC) [Entitic vol] Ordered By: Juan Carlos Baldwin on 01-12-2022 MCV (RBC) [Entitic vol] 84.5 fL 80-100 [facility] Monocytes Auto (Bld) [#/Vol] Ordered By: Juan Carlos Baldwin on 01-12-2022 Monocytes (Bld) [#/Vol] 0.6 10*3/uL 0.0-0.8 [facility] Monocytes/100 WBC Auto (Bld) Ordered By: Juan Carlos Baldwin on 01-12-2022 Monocytes/100 WBC (Bld) 6.5 % [facility] Neutrophils Auto (Bld) [#/Vo l]Ordered By: Juan Carlos Baldwin on 01-12-2022 Neutrophils (Bld) [#/Vol] 7.1 10*3/uL 1.8-7.7 [facility] Neutrophils/100 WBC Auto (Bl d)Ordered By: Juan Carlos Baldwin on 01-12-2022 Neutrophils/100 WBC (Bld) 72.9 % [facility] No Panel InformationOrdered By: Juan Carlos Baldwin on 01-12-2022 Estimated GFR () > 60 mL/Min [facility] Comment on above: GFR estimated refere nce range: According to KDOQI guidelines, <60 ml/min/1.73m2 is sufficient to diagnose a patient with chronic kidney disease. Pharmacy Creatinine Clearance (Chem N/A [facility] Platelet mean volume Auto (B ld) [Entitic vol]Ordered By: Juan Carlos Baldwin on 01-12-2022 Platelet mean volume (Bld) [Entitic vol] 8.1 fL 6.3-10.7 [facility] Platelets Auto (Bld) [#/Vol] Ordered By: Juan Carlos Baldwin on 01-12-2022 Platelets (Bld) [#/Vol] 341 10*3/uL 150-450 [facility] Protein [Mass/volume] in Ser um or PlasmaOrdered By: Juan Carlos Baldwin on 01-12-2022 Protein [Mass/Vol] 6.9 g/dL 6.1-7.9 [facility] RBC Auto (Bld) [#/Vol]Ordere d By: Juan Carlos Baldwin on 01-12-2022 RBC (Bld) [#/Vol] 5.06 10*6/uL 3.60-5.00 [facility] Serum or plasma alanine oviedo otransferase measurement without P-5'-P (enzymatic activiOrdered By: Juan Carlos Baldwin on 01-12-2022 ALT No additional P-5'-P [Catalytic activity/Vol] 15 U/L 10-60 [facility] Serum or plasma albumin/glob ulin mass ratioOrdered By: Juan Carlos Baldwin on 01-12-2022 Albumin/Globulin [Mass ratio] 0.9 {ratio} [facility] Serum or plasma alkaline breanna sphatase measurement (enzymatic activity/volume)Ordered By: Juan Carlos Baldwin on 01-12-2022 ALP [Catalytic activity/Vol] 76 U/L 32-92 [facility] Serum or plasma aspartate am inotransferase measurement (enzymatic activity/volume)Ordered By: Juan Carlos Baldwin on 01-12-2022 AST [Catalytic activity/Vol] 16 U/L 10-42 [facility] Serum or plasma calcium wayne urement (mass/volume)Ordered By: Juan Carlos Baldwin on 01-12-2022 Calcium [Mass/Vol] 9.6 mg/dL 8.2-10.2 [facility] Serum or plasma chloride arcadio surement (moles/volume)Ordered By: Juan Carlos Baldwin on 01-12-2022 Chloride [Moles/Vol] 98 mmol/L 95-114 [facility] Serum or plasma glucose wayne urement (mass/volume)Ordered By: Juan Carlos Baldwin on 01-12-2022 Glucose [Mass/Vol] 115 mg/dL 70-100 [facility] Comment on above: ADA recommended refe rence range Random Glucose Reference Range is dependent on time and content of last meal. Glucose of more than 200 mg/dL in a nonstressed, ambulatory subject supports the diagnosis of Diabetes Mellitus. Serum or plasma potassium me asurement (moles/volume)Ordered By: Juan Carlos Baldwin on 01-12-2022 Potassium [Moles/Vol] 5.0 mmol/L 3.5-5.1 [facility] Serum or plasma sodium measu rement (moles/volume)Ordered By: Juan Carlos Baldwin on 01-12-2022 Sodium [Moles/Vol] 140 mmol/L 136-146 [facility] Serum or plasma total biliru bin measurement (mass/volume)Ordered By: Juan Carlos Baldwin on 01-12-2022 Bilirubin [Mass/Vol] 0.4 mg/dL 0.3-1.2 [facility] Serum or plasma total carbon dioxide measurement (moles/volume)Ordered By: Juan Carlos Baldwin on 01-12-2022 CO2 [Moles/Vol] 29.4 mmol/L 22.0-30.0 [facility] Serum or plasma urea nitroge n measurement (mass/volume)Ordered By: Juan Carlos Baldwin on 01-12-2022 Urea nitrogen [Mass/Vol] 17 mg/dL 04-07 [facility] BASIC METABOLIC PANELon 07-17 Calcium [Mass/Vol] 7.7 mg/dL Low 8.6-10.3 [facility] Comment on above: Order Comment: Yes: Add to Previous draw if able Performed By: #### 0 0071 ####[facility] [place] [address], [facility] Chloride [Moles/Vol] 104 mmol/L Normal 98-107 The [facility] Comment on above: Order Comment: Yes: Add to Previous draw if able Performed By: #### 0 0071 ####[facility] [place] [address], [place] CO2 [Moles/Vol] 31 mmol/L Normal 21-31 [facility] Comment on above: Order Comment: Yes: Add to Previous draw if able Performed By: #### 0 0071 ####[facility] [place] [address], [facility] Creatinine [Mass/Vol] 0.62 mg/dL Normal 0.60-1.20 The [facility] Comment on above: Order Comment: Yes: Add to Previous draw if able Performed By: #### 0 0071 ####[facility] [place] [address], [place] GFR/1.73 sq M predicted among blacks MDRD (S/P/Bld) [Vol rate/Area] mL/min/{1.73_m2} Normal >60 The [facility] Comment on above: Order Comment: Yes: Add to Previous draw if able Performed By: #### 0 0071 ####[facility] [place] [address], [place] GFR/1.73 sq M predicted among non-blacks MDRD (S/P/Bld) [Vol rate/Area] mL/min/{1.73_m2} Normal >60 The [facility] Comment on above: Order Comment: Yes: Add to Previous draw if able Performed By: #### 0 0071 ####[facility] [place] [address], [facility] Glucose [Mass/Vol] 100 mg/dL Normal 70-100 The [facility] Comment on above: Order Comment: Yes: Add to Previous draw if able Performed By: #### 0 0071 ####[facility] [place] [address], [facility] Potassium [Moles/Vol] 4.0 mmol/L Normal 3.5-5.1 The [facility] Comment on above: Order Comment: Yes: Add to Previous draw if able Performed By: #### 0 0071 ####[facility] [facility].[address] Sodium [Moles/Vol] 140 mmol/L Normal 136-145 The [facility] Comment on above: Order Comment: Yes: Add to Previous draw if able Performed By: #### 0 0071 ####[facility] [facility].[address] Urea nitrogen [Mass/Vol] 15 mg/dL Normal 7-25 The [facility] Comment on above: Order Comment: Yes: Add to Previous draw if able Performed By: #### 0 0071 ####[facility] [place] [address], [facility] CBC W/DIFFon 08-07-2020 ABS BASOPHILS 0.0 10*3/uL Normal 0.0-0.2 The [facility] Comment on above: Order Comment: No: D o not add to previous draw Performed By: #### 5 0103 #### [facility] [address] [place] [address], [facility] ABS NEUTROPHILS 9.7 10*3/uL High 1.6-7.6 The [facility] Comment on above: Order Comment: No: D o not add to previous draw Performed By: #### 5 0103 #### [facility] [address] [place] [address], [facility] Basophils/100 WBC (Bld) 0.0 % Normal 0.0-1.0 The [facility] Comment on above: Order Comment: No: D o not add to previous draw Performed By: #### 5 0103 #### [facility] [address] [place] [address], [facility] Eosinophils (Bld) [#/Vol] 0.3 10*3/uL Normal 0.0-0.5 The [facility] Comment on above: Order Comment: No: D o not add to previous draw Performed By: #### 5 0103 #### [facility] [address] [place] [address], [facility] Eosinophils/100 WBC (Bld) 2.7 % Normal 0.0-6.0 The [facility] Comment on above: Order Comment: No: D o not add to previous draw Performed By: #### 5 0103 #### [facility] [address] [facility] [place] [address], [facility] Erythrocyte distribution width (RBC) [Ratio] 14.3 % Normal 11.5-15.0 The [facility] Comment on above: Order Comment: No: D o not add to previous draw Performed By: #### 5 0103 #### [facility] [address] [place] [id number], [facility] Hematocrit (Bld) [Volume fraction] 35.7 % Low 36.0-45.0 The [facility] Comment on above: Order Comment: No: D o not add to previous draw Performed By: #### 5 0103 #### [facility] [address] [place] [id number], [facility] Hemoglobin (Bld) [Mass/Vol] 10.9 g/dL Low 12.0-15.0 The [facility] Comment on above: Order Comment: No: D o not add to previous draw Performed By: #### 5 0103 #### [facility] [address] [place] [address], [facility] Lymphocytes (Bld) [#/Vol] 0.7 10*3/uL Low 1.2-4.0 The [facility] Comment on above: Order Comment: No: D o not add to previous draw Performed By: #### 5 0103 #### [facility] [address] [place] [address], [facility] Lymphocytes/100 WBC (Bld) 6.3 % Low 20.0-45.0 The [facility] Comment on above: Order Comment: No: D o not add to previous draw Performed By: #### 5 0103 #### [facility] [address] [place] [address], [facility] MCH (RBC) [Entitic mass] 27.3 pg Normal 27.0-33.0 The [facility] Comment on above: Order Comment: No: D o not add to previous draw Performed By: #### 5 0103 #### [facility] [address] [place] [address], [facility] MCHC (RBC) [Mass/Vol] 30.5 g/dL Low 32.0-35.0 The [facility] Comment on above: Order Comment: No: D o not add to previous draw Performed By: #### 5 0103 #### [facility] [address] [place] [address], [facility] MCV (RBC) [Entitic vol] 89.5 fL Normal 82.0-98.0 The [facility] Comment on above: Order Comment: No: D o not add to previous draw Performed By: #### 5 0103 #### [facility] [address] [place] [id number], [facility] Monocytes (Bld) [#/Vol] 0.8 10*3/uL Normal 0.1-1.0 The [facility] Comment on above: Order Comment: No: D o not add to previous draw Performed By: #### 5 0103 #### [facility] [address] [place] [address], [facility] MONOS 7.2 % Normal 5.0-12.0 The [facility] Comment on above: Order Comment: No: D o not add to previous draw Performed By: #### 5 0103 #### [facility] [address] [place] [address], [facility] MYELOS 0.9 % High 0.0-0.0 The [facility] Comment on above: Order Comment: No: D o not add to previous draw Performed By: #### 5 0103 #### [facility] [address] [place] [address], [facility] Neutrophils/100 WBC (Bld) 82.9 % High 40.0-72.0 The [facility] Comment on above: Order Comment: No: D o not add to previous draw Performed By: #### 5 0103 #### [facility] [address] [facility] [place] [address], [facility] Nucleated RBC/100 WBC (Bld) [Ratio] 0 % Normal 0-0 The [facility] Comment on above: Order Comment: No: D o not add to previous draw Performed By: #### 5 0103 #### [facility] [address] [facility] [place] [address], [facility] PLAT CNT 388 10*3/uL Normal 150-400 The [facility] Comment on above: Order Comment: No: D o not add to previous draw Performed By: #### 5 0103 #### [facility] [address] [facility] [place] [address], [facility] RBC (Bld) [#/Vol] 3.99 10*6/uL Normal 3.80-5.00 The [facility] Comment on above: Order Comment: No: D o not add to previous draw Performed By: #### 5 0103 #### [facility] [address] [place] [address], [facility] WBC (Bld) [#/Vol] 11.71 10*3/uL High 4.00-10.60 The [facility] Comment on above: Order Comment: No: D o not add to previous draw Performed By: #### 5 0103 #### [facility] [address] [place] [address], [facility] BASIC METABOLIC PANELon - Calcium [Mass/Vol] 7.8 mg/dL Low 8.6-10.3 [facility] Comment on above: Order Comment: No: D o not add to previous draw Performed By: #### 4 1000, [id number], 81486 ####[facility] [place] [address], [facility] Chloride [Moles/Vol] 102 mmol/L Normal 98-107 The [facility] Comment on above: Order Comment: No: D o not add to previous draw Performed By: #### 4 999, 92981, [id number] ####[facility] [place] [address], [facility] CO2 [Moles/Vol] 32 mmol/L High 21-31 The [facility] Comment on above: Order Comment: No: D o not add to previous draw Performed By: #### 4 999, 94088, 12384 ####[facility] [place] [address], [facility] Creatinine [Mass/Vol] 0.73 mg/dL Normal 0.60-1.20 The [facility] Comment on above: Order Comment: No: D o not add to previous draw Performed By: #### 4 1000, 60942, 02006 ####[facility] [place] [address], [facility] GFR/1.73 sq M predicted among blacks MDRD (S/P/Bld) [Vol rate/Area] mL/min/{1.73_m2} Normal >60 The [facility] Comment on above: Order Comment: No: D o not add to previous draw Performed By: #### 4 1000, 76285, 26953 ####[facility] [place] [address], [facility] GFR/1.73 sq M predicted among non-blacks MDRD (S/P/Bld) [Vol rate/Area] mL/min/{1.73_m2} Normal >60 The [facility] Comment on above: Order Comment: No: D o not add to previous draw Performed By: #### 4 999, 11012, 29018 ####[facility] [place] [address], [place] Glucose [Mass/Vol] 95 mg/dL Normal 70-100 [facility] Comment on above: Order Comment: No: D o not add to previous draw Performed By: #### 4 999, [id number], 04962 ####[facility] [place] [address], [place] Potassium [Moles/Vol] 3.8 mmol/L Normal 3.5-5.1 The [facility] Comment on above: Order Comment: No: D o not add to previous draw Performed By: #### 4 999, 06711, 53955 ####[facility] [place] [address], [place] Sodium [Moles/Vol] 139 mmol/L Normal 136-145 The [facility] Comment on above: Order Comment: No: D o not add to previous draw Performed By: #### 4 999, 17679, 60799 ####[facility] [place] [address], [place] Urea nitrogen [Mass/Vol] 18 mg/dL Normal 7-25 The [facility] Comment on above: Order Comment: No: D o not add to previous draw Performed By: #### 4 999, 59191, 60976 ####[facility] [facility] CBC COMPLETE BLOOD COUNTon 08-06-2020 Erythrocyte distribution width (RBC) [Ratio] 14.3 % Normal 11.5-15.0 The [facility] Comment on above: Order Comment: Yes: Add to Previous draw if able Performed By: #### 1 0204 #### [facility] [address] Hematocrit (Bld) [Volume fraction] 36.8 % Normal 36.0-45.0 The [facility] Comment on above: Order Comment: Yes: Add to Previous draw if able Performed By: #### 1 0204 #### [facility] [address] Hemoglobin (Bld) [Mass/Vol] 11.2 g/dL Low 12.0-15.0 The [facility] Comment on above: Order Comment: Yes: Add to Previous draw if able Performed By: #### 1 0204 #### [facility] [address] [facility] [place] [address], [facility] MCH (RBC) [Entitic mass] 27.3 pg Normal 27.0-33.0 The [facility] Comment on above: Order Comment: Yes: Add to Previous draw if able Performed By: #### 1 0204 #### [facility] [address] MCHC (RBC) [Mass/Vol] 30.4 g/dL Low 32.0-35.0 The [facility] Comment on above: Order Comment: Yes: Add to Previous draw if able Performed By: #### 1 0204 #### [facility] [address] [place] [address], [facility] MCV (RBC) [Entitic vol] 89.5 fL Normal 82.0-98.0 The [facility] Comment on above: Order Comment: Yes: Add to Previous draw if able Performed By: #### 1 0204 #### [facility] [address] [place] [address], [facility] Nucleated RBC/100 WBC (Bld) [Ratio] 0 % Normal 0-0 The [facility] Comment on above: Order Comment: Yes: Add to Previous draw if able Performed By: #### 1 0204 #### [facility] [address] [facility] [place] [address], [facility] PLAT CNT 405 10*3/uL High 150-400 The [facility] Comment on above: Order Comment: Yes: Add to Previous draw if able Performed By: #### 1 0204 #### [facility] [address] [facility] [place] [address], [facility] RBC (Bld) [#/Vol] 4.11 10*6/uL Normal 3.80-5.00 The [facility] Comment on above: Order Comment: Yes: Add to Previous draw if able Performed By: #### 1 0204 #### [facility] [address] [facility] [place] [address], [facility] WBC (Bld) [#/Vol] 14.15 10*3/uL High 4.00-10.[address] [facility] Comment on above: Order Comment: Yes: Add to Previous draw if able Performed By: #### 1 0204 #### [facility] [address] [facility] [place] [address], [facility] MAGNESIUM BLOODon 08-06-2020 Magnesium [Mass/Vol] 2.3 mg/dL Normal 1.9-2.7 The [facility] Comment on above: Performed By: #### 4 1000, 64316, 04541 ####[facility] [place] [address], [facility] PHOSPHORUS BLOODon Phosphate [Mass/Vol] 2.7 mg/dL Normal 2.5-5.0 The [facility] Comment on above: Performed By: #### 4 1000, 03369, 16564 ####[facility] [place] [address], [facility] BASIC METABOLIC PANELon - Calcium [Mass/Vol] 8.0 mg/dL Low 8.6-10.3 [facility] Comment on above: Order Comment: No: D o not add to previous draw Performed By: #### 0 0071 ####[facility] [place] [address], [place] Chloride [Moles/Vol] 102 mmol/L Normal 98-107 The [facility] Comment on above: Order Comment: No: D o not add to previous draw Performed By: #### 0 0071 ####[facility] [place] [address], [place] CO2 [Moles/Vol] 32 mmol/L High 21-31 [facility] Comment on above: Order Comment: No: D o not add to previous draw Performed By: #### 0 0071 ####[facility] [place] [address], [facility] Creatinine [Mass/Vol] 0.73 mg/dL Normal 0.60-1.20 The [facility] Comment on above: Order Comment: No: D o not add to previous draw Performed By: #### 0 0071 ####[facility] [place] [address], [place] GFR/1.73 sq M predicted among blacks MDRD (S/P/Bld) [Vol rate/Area] mL/min/{1.73_m2} Normal >60 The [facility] Comment on above: Order Comment: No: D o not add to previous draw Performed By: #### 0 0071 ####[facility] [place] [address], [place] GFR/1.73 sq M predicted among non-blacks MDRD (S/P/Bld) [Vol rate/Area] mL/min/{1.73_m2} Normal >60 The [facility] Comment on above: Order Comment: No: D o not add to previous draw Performed By: #### 0 0071 ####[facility] [facility] [place] [address], [facility] Glucose [Mass/Vol] 107 mg/dL High 70-100 The [facility] Comment on above: Order Comment: No: D o not add to previous draw Performed By: #### 0 0071 ####[facility] [place] [address], [facility] Potassium [Moles/Vol] 4.0 mmol/L Normal 3.5-5.1 The [facility] Comment on above: Order Comment: No: D o not add to previous draw Performed By: #### 0 0071 ####[facility] [facility].[address] Sodium [Moles/Vol] 138 mmol/L Normal 136-145 The [facility] Comment on above: Order Comment: No: D o not add to previous draw Performed By: #### 0 0071 ####[facility] [facility].[address] Urea nitrogen [Mass/Vol] 20 mg/dL Normal 7-25 The [facility] Comment on above: Order Comment: No: D o not add to previous draw Performed By: #### 0 0071 ####[facility] [place] [address], [facility] CBC W/DIFFon 08-05-2020 ABS BASOPHILS 0.1 10*3/uL Normal 0.0-0.2 The [facility] Comment on above: Order Comment: Yes: Add to Previous draw if able Performed By: #### 5 0103 ####[facility] [place] [address], [facility] ABS IMM GRANS 0.2 10*3/uL Normal 0.0-0.2 The [facility] Comment on above: Order Comment: Yes: Add to Previous draw if able Performed By: #### 5 0103 ####[facility] [place] [address], [facility] ABS NEUTROPHILS 11.8 10*3/uL High 1.6-7.6 The [facility] Comment on above: Order Comment: Yes: Add to Previous draw if able Performed By: #### 5 0103 ####[facility] [place] [address], [facility] Basophils/100 WBC (Bld) 0.4 % Normal 0.0-1.0 The [facility] Comment on above: Order Comment: Yes: Add to Previous draw if able Performed By: #### 5 0103 ####[facility] [place] [address], [facility] Eosinophils (Bld) [#/Vol] 0.3 10*3/uL Normal 0.0-0.5 The [facility] Comment on above: Order Comment: Yes: Add to Previous draw if able Performed By: #### 5 0103 ####[facility] [place] [place] [address], [facility] Eosinophils/100 WBC (Bld) 2.0 % Normal 0.0-6.0 The [facility] Comment on above: Order Comment: Yes: Add to Previous draw if able Performed By: #### 5 0103 ####[facility] [place] [address], [facility] Erythrocyte distribution width (RBC) [Ratio] 14.2 % Normal 11.5-15.0 The [facility] Comment on above: Order Comment: Yes: Add to Previous draw if able Performed By: #### 5 0103 ####[facility] [place] [address], [facility] Hematocrit (Bld) [Volume fraction] 36.9 % Normal 36.0-45.0 The [facility] Comment on above: Order Comment: Yes: Add to Previous draw if able Performed By: #### 5 0103 ####[facility] Hemoglobin (Bld) [Mass/Vol] 11.3 g/dL Low 12.0-15.0 The [facility] Comment on above: Order Comment: Yes: Add to Previous draw if able Performed By: #### 5 0103 ####[facility] IMMATURE GRANS 1.3 % High 0.0-1.0 The [facility] Comment on above: Order Comment: Yes: Add to Previous draw if able Performed By: #### 5 0103 ####[facility] Lymphocytes (Bld) [#/Vol] 0.8 10*3/uL Low 1.2-4.0 The [facility] Comment on above: Order Comment: Yes: Add to Previous draw if able Performed By: #### 5 0103 ####[facility] Lymphocytes/100 WBC (Bld) 5.7 % Low 20.0-45.0 The [facility] Comment on above: Order Comment: Yes: Add to Previous draw if able Performed By: #### 5 0103 ####[facility] MCH (RBC) [Entitic mass] 27.5 pg Normal 27.0-33.0 The [facility] Comment on above: Order Comment: Yes: Add to Previous draw if able Performed By: #### 5 3 ####[facility] MCHC (RBC) [Mass/Vol] 30.6 g/dL Low 32.0-35.0 The [facility] Comment on above: Order Comment: Yes: Add to Previous draw if able Performed By: #### 5 0103 ####[facility] MCV (RBC) [Entitic vol] 89.8 fL Normal 82.0-98.0 The [facility] Comment on above: Order Comment: Yes: Add to Previous draw if able Performed By: #### 5 0103 ####[facility] Monocytes (Bld) [#/Vol] 1.1 10*3/uL High 0.1-1.0 The [facility] Comment on above: Order Comment: Yes: Add to Previous draw if able Performed By: #### 5 0103 ####[facility] [place] [address] MONOS 7.7 % Normal 5.0-12.0 The [facility] Comment on above: Order Comment: Yes: Add to Previous draw if able Performed By: #### 5 0103 ####[facility] Neutrophils/100 WBC (Bld) 82.9 % High 40.0-72.0 The [facility] Comment on above: Order Comment: Yes: Add to Previous draw if able Performed By: #### 5 0103 ####[facility] Nucleated RBC/100 WBC (Bld) [Ratio] 0 % Normal 0-0 The [facility] Comment on above: Order Comment: Yes: Add to Previous draw if able Performed By: #### 5 0103 ####[facility] [place] [address], [facility] PLAT CNT 386 10*3/uL Normal 150-400 The [facility] Comment on above: Order Comment: Yes: Add to Previous draw if able Performed By: #### 5 0103 ####[facility] [place] [address], [facility] RBC (Bld) [#/Vol] 4.11 10*6/uL Normal 3.80-5.00 The [facility] Comment on above: Order Comment: Yes: Add to Previous draw if able Performed By: #### 5 0103 ####[facility] [place] [address], [facility] WBC (Bld) [#/Vol] 14.21 10*3/uL High 4.00-10.[address] [facility] Comment on above: Order Comment: Yes: Add to Previous draw if able Performed By: #### 5 0103 ####[facility] APTTon 08-04-2020 aPTT Coag (Bld) [Time] 39.7 s High 25.0-35.0 Th e [facility] Comment on above: Order Comment: [...] PURPOSE. Performed By: #### 1 0204 #### [facility] [address] [facility] [place] [address], [facility] CBC W/DIFFon 08-04-2020 ABS BASOPHILS 0.0 10*3/uL Normal 0.0-0.2 The [facility] Comment on above: Order Comment: Yes: Add to Previous draw if able Performed By: #### 1 0204 #### [facility] [address] [place] [address], [facility] ABS IMM GRANS 0.1 10*3/uL Normal 0.0-0.2 The [facility] Comment on above: Order Comment: Yes: Add to Previous draw if able Performed By: #### 1 0204 #### [facility] [address] [place] [address], [facility] ABS NEUTROPHILS 13.1 10*3/uL High 1.6-7.6 The [facility] Comment on above: Order Comment: Yes: Add to Previous draw if able Performed By: #### 1 0204 #### [facility] [address] [place] [address], [facility] Basophils/100 WBC (Bld) 0.1 % Normal 0.0-1.0 [facility] Comment on above: Order Comment: Yes: Add to Previous draw if able Performed By: #### 1 0204 #### [facility] [address] [place] [address], [place] Eosinophils (Bld) [#/Vol] 0.2 10*3/uL Normal 0.0-0.5 [facility] Comment on above: Order Comment: Yes: Add to Previous draw if able Performed By: #### 1 0204 #### [facility] [address] [place] [address], [facility] Eosinophils/100 WBC (Bld) 1.1 % Normal 0.0-6.0 [facility] Comment on above: Order Comment: Yes: Add to Previous draw if able Performed By: #### 1 0204 #### [facility] [address] [place] [id number], [place] Erythrocyte distribution width (RBC) [Ratio] 14.1 % Normal 11.5-15.0 [facility] Comment on above: Order Comment: Yes: Add to Previous draw if able Performed By: #### 1 0204 #### [facility] [address] [place] [address], [place] Hematocrit (Bld) [Volume fraction] 38.0 % Normal 36.0-45.0 [facility] Comment on above: Order Comment: Yes: Add to Previous draw if able Performed By: #### 1 0204 #### [facility] [address] [place] [address], [facility] Hemoglobin (Bld) [Mass/Vol] 11.7 g/dL Low 12.0-15.0 [facility] Comment on above: Order Comment: Yes: Add to Previous draw if able Performed By: #### 1 0204 #### [facility] [address] [place] [address], [facility] IMMATURE GRANS 0.8 % Normal 0.0-1.0 [facility] Comment on above: Order Comment: Yes: Add to Previous draw if able Performed By: #### 1 4 #### [facility] [address] [place] [address], [facility] Lymphocytes (Bld) [#/Vol] 0.8 10*3/uL Low 1.2-4.0 [facility] Comment on above: Order Comment: Yes: Add to Previous draw if able Performed By: #### 1 0204 #### [facility] [address] [place] [address], [facility] Lymphocytes/100 WBC (Bld) 5.1 % Low 20.0-45.0 [facility] Comment on above: Order Comment: Yes: Add to Previous draw if able Performed By: #### 1 0204 #### [facility] [address] MCH (RBC) [Entitic mass] 27.5 pg Normal 27.0-33.0 [facility] Comment on above: Order Comment: Yes: Add to Previous draw if able Performed By: #### 1 0204 #### [facility] [address] [place] [address], [facility] MCHC (RBC) [Mass/Vol] 30.8 g/dL Low 32.0-35.0 [facility] Comment on above: Order Comment: Yes: Add to Previous draw if able Performed By: #### 1 0204 #### [facility] [address] [place] [address], [facility] MCV (RBC) [Entitic vol] 89.4 fL Normal 82.0-98.0 [facility] Comment on above: Order Comment: Yes: Add to Previous draw if able Performed By: #### 1 0204 #### [facility] [address] [place] [place] [address], [facility] Monocytes (Bld) [#/Vol] 1.0 10*3/uL Normal 0.1-1.0 [facility] Comment on above: Order Comment: Yes: Add to Previous draw if able Performed By: #### 1 0204 #### [facility] [address] [facility] [place] [address], [facility] MONOS 6.5 % Normal 5.0-12.0 [facility] Comment on above: Order Comment: Yes: Add to Previous draw if able Performed By: #### 1 0204 #### [facility] [address] [facility] [place] [address], [facility] Neutrophils/100 WBC (Bld) 86.4 % High 40.0-72.0 [facility] Comment on above: Order Comment: Yes: Add to Previous draw if able Performed By: #### 1 0204 #### [facility] [address] [place] [place] [address], [facility] Nucleated RBC/100 WBC (Bld) [Ratio] 0 % Normal 0-0 [facility] Comment on above: Order Comment: Yes: Add to Previous draw if able Performed By: #### 1 0204 #### [facility] [address] [facility] [place] [address], [facility] PLAT CNT 394 10*3/uL Normal 150-400 The [facility] Comment on above: Order Comment: Yes: Add to Previous draw if able Performed By: #### 1 0204 #### [place] [address], [facility] RBC (Bld) [#/Vol] 4.25 10*6/uL Normal 3.80-5.00 [facility] Comment on above: Order Comment: Yes: Add to Previous draw if able Performed By: #### 1 0204 #### [place] [address], [facility] WBC (Bld) [#/Vol] 15.11 10*3/uL High 4.00-10.[address] [facility] Comment on above: Order Comment: Yes: Add to Previous draw if able Performed By: #### 1 0204 #### [address] DRAINAGE RETROPERITONEALo n 08-04-2020 CT DRAINAGE RETROPERITONEAL [facility] Department of Radiology [address] [place] [id number] Patient Name: JARETT KEBEDE : 1965 Sex: F Age: Race: White Pt. Location: [id number] Patient Status: I Ordered Date: 08/03/2020 6:05:00 [...] risks are acceptable. Consent was obtained. Timeout: [place] protocol timeout verification performed. PROCEDURE: Estimated blood [...] achievable Electronically signed: Jovani Gold. Transcribed by: [email or web address], User Resident: Electronically Signed by: JVOANI GOLD @ 08/04/2020 01:00 PM Normal [facility] Comment on above: Order Comment: Fluid Collection MRI CHEST W WO CONTRASTon MRI CHEST W WO CONTRAST [facility] Department of Radiology [address] [place] [id number] Patient Name: JARETT KEBEDE : 1965 Sex: F Age: Race: White Pt. Location: [id number] Patient Status: I Ordered Date: 08/02/2020 2:15:00 [...] appropriate Electronically signed: Fredy Bennett. Transcribed by: [email or web address], User Resident: Electronically Signed by: FREDY BENNETT @ 08/04/2020 07:38 PM Normal [facility] Comment on above: Order Comment: Yes: Add to Previous draw if able PROTHROMBIN TIMEon INR Coag (PPP) [Relative time] 1.40 {INR} High 0.91-1.16 [facility] Comment on above: Order Comment: [...] 1995;108:[id number]. Performed By: #### 1 0204 #### [facility] [address] [facility]. [address] PT Coag (PPP) [Time] 17.2 s High 12.3-14.8 [facility] Comment on above: Order Comment: Yes: Add to Previous draw if able Result Comment: ALL RESULTS MUST BE INTERPRETED WITH RESPECT TO BLOOD DRAWING ARTIFACT OR DILUTION ERROR OF ANTICOAGULANT AT THE TIME OF SAMPLING. Performed By: #### 1 0204 #### [facility] [address] [facility]. [address] BASIC METABOLIC PANELon 07-16 Calcium [Mass/Vol] 7.9 mg/dL Low 8.6-10.3 The [facility] Comment on above: Order Comment: No: D o not add to previous draw Performed By: #### 0 0071 ####[facility] [place] [address], [facility] Chloride [Moles/Vol] 101 mmol/L Normal 98-107 [facility] Comment on above: Order Comment: No: D o not add to previous draw Performed By: #### 0 0071 ####[facility] [place] [address], [place] CO2 [Moles/Vol] 28 mmol/L Normal 21-31 The [facility] Comment on above: Order Comment: No: D o not add to previous draw Performed By: #### 0 0071 ####[facility] [facility] [place] [address], [facility] Creatinine [Mass/Vol] 0.73 mg/dL Normal 0.60-1.20 [facility] Comment on above: Order Comment: No: D o not add to previous draw Performed By: #### 0 0071 ####[facility] [facility] [place] [address], [facility] GFR/1.73 sq M predicted among blacks MDRD (S/P/Bld) [Vol rate/Area] mL/min/{1.73_m2} Normal >60 [facility] Comment on above: Order Comment: No: D o not add to previous draw Performed By: #### 0 0071 ####[facility] [facility] [place] [address], [facility] GFR/1.73 sq M predicted among non-blacks MDRD (S/P/Bld) [Vol rate/Area] mL/min/{1.73_m2} Normal >60 [facility] Comment on above: Order Comment: No: D o not add to previous draw Performed By: #### 0 0071 ####[facility] [place] [address], [place] Glucose [Mass/Vol] 103 mg/dL High 70-100 [facility] Comment on above: Order Comment: No: D o not add to previous draw Performed By: #### 0 0071 ####[facility] [place] [address], [facility] Potassium [Moles/Vol] 3.9 mmol/L Normal 3.5-5.1 [facility] Comment on above: Order Comment: No: D o not add to previous draw Performed By: #### 0 0071 ####[facility] [place] [address], [place] Sodium [Moles/Vol] 136 mmol/L Normal 136-145 The [facility] Comment on above: Order Comment: No: D o not add to previous draw Performed By: #### 0 0071 ####[facility] [place] [address], [facility] Urea nitrogen [Mass/Vol] 18 mg/dL Normal 7-25 [facility] Comment on above: Order Comment: No: D o not add to previous draw Performed By: #### 0 0071 ####[facility] [place] [address], [facility] CBC COMPLETE BLOOD COUNTon 08-03-2020 Erythrocyte distribution width (RBC) [Ratio] 13.9 % Normal 11.5-15.[address] [facility] Comment on above: Order Comment: Yes: Add to Previous draw if able Performed By: #### 1 0204 #### [facility] [address] [place] [id number], [facility] Hematocrit (Bld) [Volume fraction] 35.9 % Low 36.0-45.0 [facility] Comment on above: Order Comment: Yes: Add to Previous draw if able Performed By: #### 1 0204 #### [facility] [address] [place] [address], [place] Hemoglobin (Bld) [Mass/Vol] 11.1 g/dL Low 12.0-15.0 [facility] Comment on above: Order Comment: Yes: Add to Previous draw if able Performed By: #### 1 0204 #### [facility] [address] [place] [address], [facility] MCH (RBC) [Entitic mass] 27.5 pg Normal 27.0-33.[address] [facility] Comment on above: Order Comment: Yes: Add to Previous draw if able Performed By: #### 1 0204 #### [facility] [address] [place] [address], [facility] MCHC (RBC) [Mass/Vol] 30.9 g/dL Low 32.0-35.0 [facility] Comment on above: Order Comment: Yes: Add to Previous draw if able Performed By: #### 1 0204 #### [facility] [address] [place] [address], [facility] MCV (RBC) [Entitic vol] 88.9 fL Normal 82.0-98.0 [facility] Comment on above: Order Comment: Yes: Add to Previous draw if able Performed By: #### 1 0204 #### [facility] [address] [facility] [place] [address], [facility] Nucleated RBC/100 WBC (Bld) [Ratio] 0 % Normal 0-0 [facility] Comment on above: Order Comment: Yes: Add to Previous draw if able Performed By: #### 1 0204 #### [facility] [address] [facility] [place] [address], [facility] PLAT CNT 339 10*3/uL Normal 150-400 The [facility] Comment on above: Order Comment: Yes: Add to Previous draw if able Performed By: #### 1 0204 #### [facility] [address] [facility] [place] [address], [facility] RBC (Bld) [#/Vol] 4.04 10*6/uL Normal 3.80-5.00 [facility] Comment on above: Order Comment: Yes: Add to Previous draw if able Performed By: #### 1 0204 #### [facility] [address] [facility] [place] [address], [facility] WBC (Bld) [#/Vol] 16.74 10*3/uL High 4.00-10.60 [facility] Comment on above: Order Comment: Yes: Add to Previous draw if able Performed By: #### 1 0204 #### [facility] [address] [facility] [place] [address], [facility] HISTOPLASMA AG URINE [id number] on 08-03-2020 HISTOPLASMA AG EIA, URINE Not Detected Normal [facility] Comment on above: Order Comment: No: D o not add to previous draw HISTOPLASMA AG, URINE Not Detected Normal Not Detected [facility] Comment on above: Order Comment: [...] histoplasmosis. Test developed and characteristics determined by [facility]. See Compliance Statement B: [email or web address] Performed By: [facility] [address] [place] [address] Bacteriologist Industrial: Eliane Mendoza MD POC GLUCOSE LABon 08-03-2020 Glucose [Mass/Vol] 95 mg/dL Normal 70-100 [facility] Comment on above: Performed By: #### 8 [id number] #### [facility] [address] [facility] [place] [address], [facility] ASPERGILLUS GALACTOMANNAN 60 068on 08-02-2020 ASPERGILLUS GALACTOMANNAN ANTIGEN, SERUM Negative Normal Negative [facility] Comment on above: Order Comment: Yes: [...] patients, serial sampling is recommended. Performed By: [facility] [address] [place] [address] Bacteriologist Industrial: Eliane Mendoza MD ASPERGILLUS GALACTOMANNAN INDEX 0 Normal [facility] Comment on above: Order Comment: Yes: Add to Previous draw if able BASIC METABOLIC PANELon 07-16 Calcium [Mass/Vol] 7.6 mg/dL Low 8.6-10.3 [facility] Comment on above: Order Comment: No: D o not add to previous draw Performed By: #### 0 0071 ####[facility] [place] [address], [facility] Chloride [Moles/Vol] 102 mmol/L Normal 98-[address] [facility] Comment on above: Order Comment: No: D o not add to previous draw Performed By: #### 0 0071 ####[facility] [place] [address], [facility] CO2 [Moles/Vol] 27 mmol/L Normal 21-31 The [facility] Comment on above: Order Comment: No: D o not add to previous draw Performed By: #### 0 0071 ####[facility] [place] [address], [facility] Creatinine [Mass/Vol] 0.87 mg/dL Normal 0.60-1.20 [facility] Comment on above: Order Comment: No: D o not add to previous draw Performed By: #### 0 0071 ####[facility] [place] [address], [place] GFR/1.73 sq M predicted among blacks MDRD (S/P/Bld) [Vol rate/Area] mL/min/{1.73_m2} Normal >60 [facility] Comment on above: Order Comment: No: D o not add to previous draw Performed By: #### 0 0071 ####[facility] [place] [address], [place] GFR/1.73 sq M predicted among non-blacks MDRD (S/P/Bld) [Vol rate/Area] mL/min/{1.73_m2} Normal >60 [facility] Comment on above: Order Comment: No: D o not add to previous draw Performed By: #### 0 0071 ####[facility] [place] [address], [place] Glucose [Mass/Vol] 129 mg/dL High 70-100 The [facility] Comment on above: Order Comment: No: D o not add to previous draw Performed By: #### 0 0071 ####[facility] [place] [address], [facility] Potassium [Moles/Vol] 3.8 mmol/L Normal 3.5-5.1 [facility] Comment on above: Order Comment: No: D o not add to previous draw Performed By: #### 0 0071 ####[facility] [place] [place] [address], [place] Sodium [Moles/Vol] 136 mmol/L Normal 136-145 The [facility] Comment on above: Order Comment: No: D o not add to previous draw Performed By: #### 0 0071 ####[facility] [place] [address], [place] Urea nitrogen [Mass/Vol] 23 mg/dL Normal 7-25 [facility] Comment on above: Order Comment: No: D o not add to previous draw Performed By: #### 0 0071 ####[facility] [facility] CBC COMPLETE BLOOD COUNTon 0 08-02-2020 Erythrocyte distribution width (RBC) [Ratio] 13.8 % Normal 11.5-15.0 [facility] Comment on above: Order Comment: Yes: Add to Previous draw if able Performed By: #### 1 0204 #### [facility] [address] [place] [address], [facility] Hematocrit (Bld) [Volume fraction] 35.5 % Low 36.0-45.0 [facility] Comment on above: Order Comment: Yes: Add to Previous draw if able Performed By: #### 1 4 #### [facility] [address] Hemoglobin (Bld) [Mass/Vol] 11.1 g/dL Low 12.0-15.0 [facility] Comment on above: Order Comment: Yes: Add to Previous draw if able Performed By: #### 1 0204 #### [facility] [address] [place] [address], [facility] MCH (RBC) [Entitic mass] 28.0 pg Normal 27.0-33.0 [facility] Comment on above: Order Comment: Yes: Add to Previous draw if able Performed By: #### 1 0204 #### [facility] [address] [place] [address], [facility] MCHC (RBC) [Mass/Vol] 31.3 g/dL Low 32.0-35.0 [facility] Comment on above: Order Comment: Yes: Add to Previous draw if able Performed By: #### 1 0204 #### [facility] [address] [place] [address], [facility] MCV (RBC) [Entitic vol] 89.4 fL Normal 82.0-98.0 [facility] Comment on above: Order Comment: Yes: Add to Previous draw if able Performed By: #### 1 0204 #### [facility] [address] Nucleated RBC/100 WBC (Bld) [Ratio] 0 % Normal 0-0 [facility] Comment on above: Order Comment: Yes: Add to Previous draw if able Performed By: #### 1 0204 #### [facility] [address] [place] [address], [facility] PLAT CNT 335 10*3/uL Normal 150-400 The [facility] Comment on above: Order Comment: Yes: Add to Previous draw if able Performed By: #### 1 0204 #### [facility] [address] RBC (Bld) [#/Vol] 3.97 10*6/uL Normal 3.80-5.00 [facility] Comment on above: Order Comment: Yes: Add to Previous draw if able Performed By: #### 1 0204 #### [facility] [address] WBC (Bld) [#/Vol] 19.28 10*3/uL High 4.00-10.60 [facility] Comment on above: Order Comment: Yes: Add to Previous draw if able Performed By: #### 1 0204 #### [facility] [address] FUNGITELL (1,4-WIJG-D-GLUCAN )on 08-02-2020 FUNGITELL (1,3 LEKR-S-OOLFNE) <31 Normal [facility] Comment on above: Order Comment: Yes: Add to Previous draw if able FUNGITELL INTERPRETATION Negative Normal Negative [facility] Comment on above: Order Comment: Yes: Add to Previous draw if able Result Comment: INTE RPRETIVE INFORMATION: (1,3)-hroe-W-jtdqhy (Fungitell) Less than 31 pg/mL ................... Negative 31-59 pg/mL .......................... Negative 60-79 pg/mL .......................... Indeterminate Greater than or equal to 80 pg/mL .... Positive The Fungitell test is indicated for presumptive diagnosis of fungal infection and should be used in conjunction with other diagnostic procedures. This test does not detect certain fungal species such as Cryptococcus, which produce very low levels of (1,3)-nbrr-V-melulw. This test will not detect the zygomycetes, such as Absidia, Mucor, and Rhizopus, which are not known to produce (1,3)-ycux-I-ocuhri. In addition, the yeast phase of Blastomyces dermatitidis produces little (1,3)-ance-N-vfkplb and may not be detected by the assay. Performed By: [facility] [address] [place] [address] Bacteriologist Industrial: Eliane Mendoza MD TB QUANTIFERON PLUSon 2020 MITOGEN MINUS NIL >10.00 Normal The [facility] Comment on above: Order Comment: Yes: Add to Previous draw if able Performed By: #### 3 1592 #### [facility] [address] NIL 0.09 IU/mL Normal [facility] Comment on above: Order Comment: Yes: Add to Previous draw if able Performed By: #### 3 1592 #### [facility] [address] TB QUANTIFERON Negative Normal NEGATIVE The [facility] Comment on above: Order Comment: Yes: Add to Previous draw if able Result Comment: Erick tiferon TB Gold Interpretation (IU/mL): NEGATIVE: M. tuberculosis infection not likely. Nil: <=8.0 TB1 Antigen minus Nil (GQ7ME-OFK): <0.35 OR >=0.35; and <25% of Nil value. TB2 Antigen minus Nil (PM5HL-QPL): <0.35 OR >=0.35; and <25% of Nil [...] (https://www.cdc.gov/tb/publications/guidlines/default.htm Performed By: #### 3 1592 #### [facility] [address] TB1 AG 0.08 IU/mL Normal [facility] Comment on above: Order Comment: Yes: Add to Previous draw if able Performed By: #### 3 1592 #### [facility] [address] TB1 AG MINUS NIL -0.01 IU/mL Normal [facility] Comment on above: Order Comment: Yes: Add to Previous draw if able Performed By: #### 3 1592 #### [facility] [address] TB2 AG 0.08 IU/mL Normal [facility] Comment on above: Order Comment: Yes: Add to Previous draw if able Performed By: #### 3 1592 #### [facility] [address] TB2 AG MINUS NIL -0.01 IU/mL Normal [facility] Comment on above: Order Comment: Yes: Add to Previous draw if able Performed By: #### 3 1592 #### [facility] [address] *SARS-CoV-2 COVID-19on 08-01 [id number] Not Detected Normal Not Detected [facility] Comment on above: Order Comment: No co llection time noted on specimen or requisition. The collection time recorded is the time of receipt in the lab. The A[employer]ima SARS-CoV-2 assay is a nucleic acid amplification test intended for the qualitative detection of RNA from SARS-CoV-2 isolated and purified from nasopharyngeal (POULTRY FEED SUPERVISOR),oropharyngeal (OP), nasal swab, sputum, and bronchoalveolar lavage (BAL) specimens from patients with signs and symptoms of infection who are suspected of COVID-19. Results are for the identification of SARS-CoV-2 RNA. The SARS-CoV-2 RNA is generally detectable during the acute phase of infection. The [employer]ptima SARS-CoV-2 Assay on the [employer] and [employer] Fusion system is intended for use by laboratory personnel specifically instructed and trained in the operation of the [place] and [employer] Fusion system. The Aptima SARS-CoV-2 assay is [...] information. Performed By: #### 3 1792 #### [facility] [address] [place] [address], [facility] BASIC METABOLIC PANELon 07-16 Calcium [Mass/Vol] 7.6 mg/dL Low 8.6-10.3 The [facility] Comment on above: Order Comment: No: D o not add to previous draw Performed By: #### 1 0070, [id number], [id number] ####[facility] [facility] [place] [address], [facility] Chloride [Moles/Vol] 103 mmol/L Normal 98-107 The [facility] Comment on above: Order Comment: No: D o not add to previous draw Performed By: #### 1 0070, 03973, 98759 ####[facility] [place] [address], [place] CO2 [Moles/Vol] 27 mmol/L Normal 21-31 The [facility] Comment on above: Order Comment: No: D o not add to previous draw Performed By: #### 1 0, 66797, 22163 ####[facility] [place] [address], [facility] Creatinine [Mass/Vol] 0.85 mg/dL Normal 0.60-1.20 The [facility] Comment on above: Order Comment: No: D o not add to previous draw Performed By: #### 1 0, 89587, 70810 ####[facility] [place] [address], [facility] GFR/1.73 sq M predicted among blacks MDRD (S/P/Bld) [Vol rate/Area] mL/min/{1.73_m2} Normal >60 The [facility] Comment on above: Order Comment: No: D o not add to previous draw Performed By: #### 1 0, 71045, 41684 ####[facility] [place] [address], [facility] GFR/1.73 sq M predicted among non-blacks MDRD (S/P/Bld) [Vol rate/Area] mL/min/{1.73_m2} Normal >60 The [facility] Comment on above: Order Comment: No: D o not add to previous draw Performed By: #### 1 0, 33359, 22427 ####[facility] [place] [address], [place] Glucose [Mass/Vol] 132 mg/dL High 70-100 The [facility] Comment on above: Order Comment: No: D o not add to previous draw Performed By: #### 1 0, 28154, 42235 ####[facility] [place] [address], [place] Potassium [Moles/Vol] 3.9 mmol/L Normal 3.5-5.1 The [facility] Comment on above: Order Comment: No: D o not add to previous draw Performed By: #### 1 0070, 43945, 89847 ####[facility] [place] [address], [facility] Sodium [Moles/Vol] 138 mmol/L Normal 136-145 The [facility] Comment on above: Order Comment: No: D o not add to previous draw Performed By: #### 1 0070, 54602, 34374 ####[facility]3000 [facility].[address] Urea nitrogen [Mass/Vol] 19 mg/dL Normal 7-25 The [facility] Comment on above: Order Comment: No: D o not add to previous draw Performed By: #### 1 0070, 14273, 18147 ####[facility]3000 [facility].[address] C REACTIVE PROTEINon 021 CRP [Mass/Vol] 287.0 mg/L High 0.0-7.0 The [facility] Comment on above: Order Comment: Yes: Add to Previous draw if able Performed By: #### 6 1405 ####[facility] [facility] [place] [address], [facility] CBC W/DIFFon 08-01-2020 ABS BASOPHILS 0.1 10*3/uL Normal 0.0-0.2 The [facility] Comment on above: Order Comment: Yes: Add to Previous draw if able Performed By: #### 1 0204 #### [facility] [address] [place] [address], [facility] ABS IMM GRANS 0.1 10*3/uL Normal 0.0-0.2 The [facility] Comment on above: Order Comment: Yes: Add to Previous draw if able Performed By: #### 1 0204 #### [facility] [address] [place] [address], [facility] ABS NEUTROPHILS 19.1 10*3/uL High 1.6-7.6 The [facility] Comment on above: Order Comment: Yes: Add to Previous draw if able Performed By: #### 1 0204 #### [facility] [address] [place] [id number], [facility] Basophils/100 WBC (Bld) 0.2 % Normal 0.0-1.0 The [facility] Comment on above: Order Comment: Yes: Add to Previous draw if able Performed By: #### 1 0204 #### [facility] [address] [place] [address], [facility] Eosinophils (Bld) [#/Vol] 0.1 10*3/uL Normal 0.0-0.5 The [facility] Comment on above: Order Comment: Yes: Add to Previous draw if able Performed By: #### 1 4 #### [facility] [address] [place] [address], [facility] Eosinophils/100 WBC (Bld) 0.4 % Normal 0.0-6.0 The [facility] Comment on above: Order Comment: Yes: Add to Previous draw if able Performed By: #### 1 0204 #### [facility] [address] [place] [address], [facility] Erythrocyte distribution width (RBC) [Ratio] 13.8 % Normal 11.5-15.0 The [facility] Comment on above: Order Comment: Yes: Add to Previous draw if able Performed By: #### 1 0204 #### [facility] [address] [place] [id number], [facility] Hematocrit (Bld) [Volume fraction] 38.9 % Normal 36.0-45.0 The [facility] Comment on above: Order Comment: Yes: Add to Previous draw if able Performed By: #### 1 0204 #### [facility] [address] [place] [address], [facility] Hemoglobin (Bld) [Mass/Vol] 12.0 g/dL Normal 12.0-15.0 The [facility] Comment on above: Order Comment: Yes: Add to Previous draw if able Performed By: #### 1 0204 #### [facility] [address] [place] [address], [facility] IMMATURE GRANS 0.6 % Normal 0.0-1.0 The [facility] Comment on above: Order Comment: Yes: Add to Previous draw if able Performed By: #### 1 0204 #### [facility] [address] [place] [address], [facility] Lymphocytes (Bld) [#/Vol] 0.7 10*3/uL Low 1.2-4.0 The [facility] Comment on above: Order Comment: Yes: Add to Previous draw if able Performed By: #### 1 4 #### [facility] [address] [place] [place] [address], [facility] Lymphocytes/100 WBC (Bld) 3.2 % Low 20.0-45.0 The [facility] Comment on above: Order Comment: Yes: Add to Previous draw if able Performed By: #### 1 0204 #### [facility] [address] [place] [place] [address], [facility] MCH (RBC) [Entitic mass] 27.4 pg Normal 27.0-33.0 The [facility] Comment on above: Order Comment: Yes: Add to Previous draw if able Performed By: #### 1 0204 #### [facility] [address] [place] [place] [address], [facility] MCHC (RBC) [Mass/Vol] 30.8 g/dL Low 32.0-35.0 The [facility] Comment on above: Order Comment: Yes: Add to Previous draw if able Performed By: #### 1 0204 #### [facility] [address] [place] [address], [facility] MCV (RBC) [Entitic vol] 88.8 fL Normal 82.0-98.0 The [facility] Comment on above: Order Comment: Yes: Add to Previous draw if able Performed By: #### 1 0204 #### [facility] [address] [place] [address], [facility] Monocytes (Bld) [#/Vol] 0.8 10*3/uL Normal 0.1-1.0 The [facility] Comment on above: Order Comment: Yes: Add to Previous draw if able Performed By: #### 1 4 #### [facility] [address] [facility] [place] [address], [facility] MONOS 3.9 % Low 5.0-12.0 The [facility] Comment on above: Order Comment: Yes: Add to Previous draw if able Performed By: #### 1 4 #### [facility] [address] [facility]. [address] Neutrophils/100 WBC (Bld) 91.7 % High 40.0-72.0 The [facility] Comment on above: Order Comment: Yes: Add to Previous draw if able Performed By: #### 1 4 #### [facility] [address] [facility]. [address] Nucleated RBC/100 WBC (Bld) [Ratio] 0 % Normal 0-0 The [facility] Comment on above: Order Comment: Yes: Add to Previous draw if able Performed By: #### 1 0204 #### [facility] [address] [facility] [place] [address], [facility] PLAT CNT 367 10*3/uL Normal 150-400 The [facility] Comment on above: Order Comment: Yes: Add to Previous draw if able Performed By: #### 1 0204 #### [facility] [address] [facility] [place] [address], [facility] RBC (Bld) [#/Vol] 4.38 10*6/uL Normal 3.80-5.00 The [facility] Comment on above: Order Comment: Yes: Add to Previous draw if able Performed By: #### 1 0204 #### [facility] [address] WBC (Bld) [#/Vol] 20.78 10*3/uL High 4.00-10.60 The [facility] Comment on above: Order Comment: Yes: Add to Previous draw if able Performed By: #### 1 0204 #### [facility] [address] CYCLIC CITRULLINATED PEPTIDE [place] [id number] 08-01-2020 CYCLIC CIT PEP 224 Units High 0-19 The [facility] Comment on above: Order Comment: [...] be monitored and testing repeated. Performed By: [facility] [address] [place] [address] Bacteriologist Industrial: Eliane Mendoza MD MAGNESIUM BLOODon 08-01-2020 Magnesium [Mass/Vol] 1.7 mg/dL Low 1.9-2.7 The [facility] Comment on above: Order Comment: Yes: Add to Previous draw if able Performed By: #### 1 0204 #### [facility] [address] [place] [address], [facility] PHOSPHORUS BLOODon 1 Phosphate [Mass/Vol] 2.7 mg/dL Normal 2.5-5.0 The [facility] Comment on above: Performed By: #### 1 0070, 01106, 08885 ####[facility] [facility] [place] [address], [facility] PROTHROMBIN TIMEon 1 INR Coag (PPP) [Relative time] 1.50 {INR} High 0.91-1.16 The [facility] Comment on above: Order Comment: [...] CHEST 1995;108:[id number]. Performed By: #### 5 6101 ####[facility] [facility] [place] [address], [facility] PT Coag (PPP) [Time] 18.1 s High 12.3-14.8 The [facility] Comment on above: Order Comment: Yes: Add to Previous draw if able Result Comment: ALL RESULTS MUST BE INTERPRETED WITH RESPECT TO BLOOD DRAWING ARTIFACT OR DILUTION ERROR OF ANTICOAGULANT AT THE TIME OF SAMPLING. Performed By: #### 5 6101 ####[facility] [facility].[address] RHEUMATOID FACTOR SERUMon RA 64 IU/mL High 0-20 The [facility] Comment on above: Order Comment: Yes: Add to Previous draw if able Performed By: #### 1 0204 #### [facility] [address] [facility] [place] [address], [facility] SEDIMENTATION RATEon 021 SED RATE 41 mm/hr High 0-20 The [facility] Comment on above: Order Comment: Yes: Add to Previous draw if able Performed By: #### 1 0204 #### [facility] [address] [facility]. [address] TROPONIN-Ion 08-01-2020 Troponin I.cardiac [Mass/Vol] 0.01 ng/mL Normal 0.00-0.[address] [facility] Comment on above: Order Comment: Yes: Add to Previous draw if able Result Comment: REFE RENCE RANGES: 0.00 - 0.04 ng/ml NORMAL 0.05 - 0.50 ng/ml INDETERMINATE > 0.50 ng/ml CONSISTENT WITH AN M.I. Performed By: #### 3 5200 ####[facility] LACTATE WITH REFLEXon 2020 Lactate [Moles/Vol] 0.9 mmol/L Normal 0.5-2.2 The [facility] Comment on above: Performed By: #### 3 1414 ####[facility] *BLOOD CULTUREon 07-31-2020 Bacteria identified Cx Nom (Bld) Clinical Report: (D) Specimen: BLOOD CULTURE Collected: 07/31/2020 17:20 Status: Final Last Updated: 08/06/2020 15:38 (1) Prior to antibiotic administration LAC CULT RES (Final) No Growth Day 5 Normal The [facility] Comment on above: Order Comment: Prior to antibiotic administration LAC Performed By: #### 3 1333 #### [facility] [address] [facility] [place] [address], [facility] Bacteria identified Cx Nom (Bld) Clinical Report: (D) Specimen: BLOOD CULTURE Collected: 07/31/2020 16:20 Status: Final Last Updated: 08/06/2020 15:38 (1) Prior to antibiotic administration RFA CULT RES (Final) No Growth Day [address] [facility] Comment on above: Order Comment: Yes: Add to Previous draw if able Performed By: #### 3 0313 ####[facility] [place] [address], [facility] BASIC METABOLIC PANELon 07-16 Calcium [Mass/Vol] 7.7 mg/dL Low 8.6-10.3 [facility] Comment on above: Order Comment: Fluid Collection Performed By: #### 9 9909, 86239, 73509 ####[facility] [place] [address], [place] Chloride [Moles/Vol] 104 mmol/L Normal 98-107 The [facility] Comment on above: Order Comment: Fluid Collection Performed By: #### 9 9909, 81737, 55676 ####[facility] [facility] [place] [address], [facility] CO2 [Moles/Vol] 25 mmol/L Normal 21-31 [facility] Comment on above: Order Comment: Fluid Collection Performed By: #### 9 9909, 68014, 26714 ####[facility] [place] [address], [place] Creatinine [Mass/Vol] 0.82 mg/dL Normal 0.60-1.20 The [facility] Comment on above: Order Comment: Fluid Collection Performed By: #### 9 9909, 77471, 54948 ####[facility] [facility] [id number], [place] GFR/1.73 sq M predicted among blacks MDRD (S/P/Bld) [Vol rate/Area] mL/min/{1.73_m2} Normal >60 The [facility] Comment on above: Order Comment: Fluid Collection Performed By: #### 9 9908, 54320, 47029 ####[facility] [place] [address], [place] GFR/1.73 sq M predicted among non-blacks MDRD (S/P/Bld) [Vol rate/Area] mL/min/{1.73_m2} Normal >60 The [facility] Comment on above: Order Comment: Fluid Collection Performed By: #### 9 99, 47643, 74934 ####[facility] [place] [address], [place] Glucose [Mass/Vol] 159 mg/dL High 70-100 The [facility] Comment on above: Order Comment: Fluid Collection Performed By: #### 9 9908, 38570, 16166 ####[facility] [place] [address], [place] Potassium [Moles/Vol] 4.4 mmol/L Normal 3.5-5.1 The [facility] Comment on above: Order Comment: Fluid Collection Performed By: #### 9 9908, 29965, 42006 ####[facility] [place] [address], [place] Sodium [Moles/Vol] 138 mmol/L Normal 136-145 The [facility] Comment on above: Order Comment: Fluid Collection Performed By: #### 9 9908, 71828, 40343 ####[facility] [place] [address], [place] Urea nitrogen [Mass/Vol] 20 mg/dL Normal 7-25 The [facility] Comment on above: Order Comment: Fluid Collection Performed By: #### 9 9908, 49511, 25384 ####[facility] [place] [address], [place] CBC W/DIFFon 07-31-2020 ABS BASOPHILS 0.0 10*3/uL Normal 0.0-0.2 The [facility] Comment on above: Order Comment: Yes: Add to Previous draw if able Performed By: #### 1 0204 #### [facility] [address] [place] [address], [facility] ABS IMM GRANS 0.1 10*3/uL Normal 0.0-0.2 [facility] Comment on above: Order Comment: Yes: Add to Previous draw if able Performed By: #### 1 0204 #### [facility] [address] [place] [address], [facility] ABS NEUTROPHILS 16.2 10*3/uL High 1.6-7.6 The [facility] Comment on above: Order Comment: Yes: Add to Previous draw if able Performed By: #### 1 0204 #### [facility] [address] [place] [address], [facility] Basophils/100 WBC (Bld) 0.2 % Normal 0.0-1.0 The [facility] Comment on above: Order Comment: Yes: Add to Previous draw if able Performed By: #### 1 0204 #### [facility] [address] [facility] [place] [address], [facility] Eosinophils (Bld) [#/Vol] 0.0 10*3/uL Normal 0.0-0.5 The [facility] Comment on above: Order Comment: Yes: Add to Previous draw if able Performed By: #### 1 0204 #### [facility] [address] [facility] [place] [address], [facility] Eosinophils/100 WBC (Bld) 0.0 % Normal 0.0-6.0 The [facility] Comment on above: Order Comment: Yes: Add to Previous draw if able Performed By: #### 1 0204 #### [facility] [address] [place] [address], [facility] Erythrocyte distribution width (RBC) [Ratio] 13.5 % Normal 11.5-15.0 The [facility] Comment on above: Order Comment: Yes: Add to Previous draw if able Performed By: #### 1 0204 #### [facility] [address] [facility] [place] [address], [facility] Hematocrit (Bld) [Volume fraction] 40.4 % Normal 36.0-45.0 The [facility] Comment on above: Order Comment: Yes: Add to Previous draw if able Performed By: #### 1 0204 #### [facility] [address] Hemoglobin (Bld) [Mass/Vol] 12.9 g/dL Normal 12.0-15.0 The [facility] Comment on above: Order Comment: Yes: Add to Previous draw if able Performed By: #### 1 4 #### [facility] [address] [place] [address], [facility] IMMATURE GRANS 0.4 % Normal 0.0-1.0 [facility] Comment on above: Order Comment: Yes: Add to Previous draw if able Performed By: #### 1 0204 #### [facility] [address] [place] [address], [facility] Lymphocytes (Bld) [#/Vol] 0.8 10*3/uL Low 1.2-4.0 The [facility] Comment on above: Order Comment: Yes: Add to Previous draw if able Performed By: #### 1 0204 #### [facility] [address] [place] [address], [facility] Lymphocytes/100 WBC (Bld) 4.7 % Low 20.0-45.0 [facility] Comment on above: Order Comment: Yes: Add to Previous draw if able Performed By: #### 1 0204 #### [facility] [address] [facility] [place] [address], [facility] MCH (RBC) [Entitic mass] 28.0 pg Normal 27.0-33.0 [facility] Comment on above: Order Comment: Yes: Add to Previous draw if able Performed By: #### 1 0204 #### [facility] [address] [place] [address], [facility] MCHC (RBC) [Mass/Vol] 31.9 g/dL Low 32.0-35.0 [facility] Comment on above: Order Comment: Yes: Add to Previous draw if able Performed By: #### 1 0204 #### [facility] [address] MCV (RBC) [Entitic vol] 87.8 fL Normal 82.0-98.0 [facility] Comment on above: Order Comment: Yes: Add to Previous draw if able Performed By: #### 1 4 #### [facility] [address] Monocytes (Bld) [#/Vol] 0.8 10*3/uL Normal 0.1-1.0 [facility] Comment on above: Order Comment: Yes: Add to Previous draw if able Performed By: #### 1 0204 #### [facility] [address] MONOS 4.6 % Low 5.0-12.0 [facility] Comment on above: Order Comment: Yes: Add to Previous draw if able Performed By: #### 1 0204 #### [facility] [address] Neutrophils/100 WBC (Bld) 90.1 % High 40.0-72.0 [facility] Comment on above: Order Comment: Yes: Add to Previous draw if able Performed By: #### 1 0204 #### [facility] [address] Nucleated RBC/100 WBC (Bld) [Ratio] 0 % Normal 0-0 [facility] Comment on above: Order Comment: Yes: Add to Previous draw if able Performed By: #### 1 0204 #### [facility] [address] [place] [address], [facility] PLAT CNT 383 10*3/uL Normal 150-400 [facility] Comment on above: Order Comment: Yes: Add to Previous draw if able Performed By: #### 1 0204 #### [facility] [address] [place] [address], [facility] RBC (Bld) [#/Vol] 4.60 10*6/uL Normal 3.80-5.00 [facility] Comment on above: Order Comment: Yes: Add to Previous draw if able Performed By: #### 1 0204 #### [facility] [address] [place] [address], [facility] WBC (Bld) [#/Vol] 17.95 10*3/uL High 4.00-10.60 [facility] Comment on above: Order Comment: Yes: Add to Previous draw if able Performed By: #### 1 0204 #### [facility] [address] [facility] [address] ABDOMEN AND PELVIS W IV A ND ORAL CONTRASTon 07-31-2020 CT ABDOMEN AND PELVIS W IV AND ORAL CONTRAST [facility] Department of Radiology [address] [place] [id number] Patient Name: JARETT KEBEDE : 1965 Sex: F Age: Race: White Pt. Location: [facility] Patient Status: I Ordered Date: 07/31/2020 6:10:00 [...] etiology. Electronically signed: Ramiro Aquino. Transcribed by: [email or web address], User Resident: RAMIRO AQUINO Electronically Signed by: RAMIRO AQUINO @ 07/31/2020 08:38 PM I personally read this/these film(s) with this resident Normal [facility] Comment on above: Order Comment: Yes: Add to Previous draw if able CT CHEST W CONTRASTon 2020 CT CHEST W CONTRAST [facility] Department of Radiology [address] [place] [id number] Patient Name: JARETT KEBEDE : 1965 Sex: F Age: Race: White Pt. Location: [facility] Patient Status: I Ordered Date: 07/31/2020 6:30:00 [...] criteria. Electronically signed: Ramiro Aquino. Transcribed by: [email or web address], User Resident: RAMIRO AQUINO Electronically Signed by: RAMIRO AQUINO @ 07/31/2020 08:21 PM I personally read this/these film(s) with this resident Normal [facility] Comment on above: Order Comment: Yes: Add to Previous draw if able LIPASE BLOODon 07-31-2020 Lipase [Catalytic activity/Vol] U/L Low 11-82 [facility] Comment on above: Order Comment: Fluid Collection Performed By: #### 9 9909, 58058, 57445 ####[facility] [place] [address], [facility] LIVER BATTERYon 07-31-2020 Albumin [Mass/Vol] 2.6 g/dL Low 3.5-5.7 [facility] Comment on above: Order Comment: Fluid Collection Performed By: #### 9 9909, 57904, 80299 ####[facility] [place] [address], [facility] ALKALINE PHOSPH 56 IU/L Normal 34-104 [facility] Comment on above: Order Comment: Fluid Collection Performed By: #### 9 9909, 02800, 77000 ####[facility] [place] [address], [place] ALT [Catalytic activity/Vol] 13 U/L Normal 7-52 [facility] Comment on above: Order Comment: Fluid Collection Performed By: #### 9 9909, 28435, 42954 ####[facility] [place] [address], [place] AST [Catalytic activity/Vol] 13 U/L Normal 13-39 [facility] Comment on above: Order Comment: Fluid Collection Performed By: #### 9 9909, 23154, 18351 ####[facility] [place] [address], [facility] Bilirubin [Mass/Vol] 0.6 mg/dL Normal 0.3-1.[address] [facility] Comment on above: Order Comment: Fluid Collection Performed By: #### 9 9909, 03057, 88745 ####[facility] [place] [address], [facility] Bilirubin.direct [Mass/Vol] 0.1 mg/dL Normal 0.0-0.[address] [facility] Comment on above: Order Comment: Fluid Collection Performed By: #### [id number] ####[facility] [place] [address], [facility] Protein [Mass/Vol] 6.0 g/dL Normal 6.0-8.3 [facility] Comment on above: Order Comment: Fluid Collection Performed By: #### [id number], [id number] ####[facility] Vital Signs Date Time Vital Sign Value Performing Clinician Facility 01-10-2022 15:53-0400 Blood Pressure Location Jeremias DAVISON [facility] 01-10-2022 15:53-0400 Body temperature 97.52 [degF] Jeremias DAVISON [facility] 01-10-2022 15:53-0400 Diastolic blood pressure 84 mm[Hg] Jeremias DAVISON [facility] 01-10-2022 15:53-0400 Heart rate 70 /min Jeremias DAVISON [facility] 01-10-2022 15:53-0400 SaO2% (BldA) [Mass fraction] 95 % Jeremias DAVISON [facility] 01-10-2022 15:53-0400 Systolic blood pressure 144 mm[Hg] Jeremias DAVISON [facility] 09-01-2021 15:15-0500 Body temperature 98 [degF] Albin Bruno Other [employer] Other 09-01-2021 15:15-0500 Diastolic blood pressure 78 mm[Hg] Albin Bruno Other [employer] Other 09-01-2021 15:15-0500 Systolic blood pressure 123 mm[Hg] Albin Bruno Other [employer] Other Encounters Encounter Date Encounter Type Care Provider Facility Start: 05-30-2023 End: 05-31-2023 ambulatory Ann Oro Facility:[facility] Jackie campos Start: 05-22-2023 End: 05-23-2023 ambulatory Ann Oro Facility:[facility] Jackie campos Start: 05-15-2023 ambulatory Jeremias DAVISON Facility: [facility] Marina Start: 11-29-2022 End: 11-30-2022 ambulatory Jeremias DAVISON Facility:[facility] Start: 11-29-2022 End: 11-30-2022 ambulatory Jeremias DAVISON Facility: [facility] Start: 11-23-2022 End: 11-24-[address] JEREMIAS [...] encounter procedure MD Shay Baldwin Work Phone: [facility] [address] Start: 01-10-2022 End: 01-10-2022 Patient encounter procedure Jeremias DAVISON [facility] Start: 12-26-2021 End: 12-26-2021 Patient encounter procedure Jeremias DAVISON [facility] Start: 12-07-2021 End: 12-08-[address] JEREMIAS DAVISON Facility: Start: 09-08-2021 End: 09-08-2021 ambulatory Albin Bruno Other [employer] Other Start: 09-08-2021 Telephone encounter Albin Bruno [facility] Start: 09-01-2021 End: 09-01-2021 ambulatory Albin Bruno Other [employer] Other Start: 09-01-2021 Office outpatient ne w 45 minutes Albin Bruno [facility] Start: 07-31-2020 End: 01-23-2021 Evaluation and management of inpatient RI Facility:[facility] Procedures Date Procedure Procedure Detail Performing Clinician Start: 08-04-2020 DRAINAGE OF RETROPERITONEUM, PERCUTANEOUS APPROACH, DIAGN JOVANI GOLD Start: 07-16-1999 Hysterectomy Jeremias ENRIQUE Colon part (body structure) Jeremias DAVISON [facility] (physical object) Jeremias DAVISON Payers Date Payer Category Payer Unknown [id number] 2.16.8 [id number] 1965 Unknown [id number] 2.16.84 0.1.047961.3.579.2.593 1965 Unknown [id number] 2.16.84 0.1.388508.3.579.2.593 1963 Unknown [id number] 2.16.84 0.1.394392.3.579.2.593 1963 Unknown [id number] 2.16.84 0.1.768185.3.579.2.593 1963 Unknown [id number] 2.16.84 0.1.708496.3.579.2.593 1963 Unknown [id number] 2.16.84 0.1.605088.3.579.2.593 1963 Unknown [id number] 2.16.84 0.1.668308.3.579.2.593 1963 Unknown [id number] 2.16.84 0.1.368634.3.579.2.593 1963 Unknown [id number] 2.16.84 0.1.345333.3.579.2.593 1963 Unknown [id number] 2.16.84 0.1.865127.3.579.2.593 1963 Unknown [id number] 2.16.84 0.1.830237.3.579.2.593 1963 Unknown [id number] 2.16.84 0.1.949928.3.579.2.593 1963 Unknown [id number] 2.16.84 0.1.710146.3.579.2.593 1963 Unknown [id number] 2.16.84 0.1.339519.3.579.2.593 1963 Unknown [id number] 2.16.8 40.1.501990.3.579.2.727 1963 Unknown [id number] 2.16.8 40.1.430663.3.579.2.727 1963 Unknown [id number] 2.16.8 40.1.054598.3.579.2.727 1963 Unknown [id number] 2.16.8 40.1.862752.3.579.2.727 1965 Unknown [id number] 2.16.8 40.1.767420.3.579.2.727 1961 Medicaid [id number] 1961 Medicare [id number] 1961 Medicare [id number] Medicare Medicare Outpatient [id number] [id number] Self-pay Self Pay [id number] Social History Date Type Detail Facility Tobacco Unknown if ever smoked [employer] Other Comment on above: denies Sex Assigned At Female [employer] Other Start: 11-27-2018 Tobacco smoking status Ex-smoker (fi nding) [facility] Tobacco smoking status Never [facility] Start: 1965 Sex Assigned At Female F [facility] Functional Status Date Assessment Result Facility 01-10-2022 Functional Status N/A [facility] Evaluation note 09-01-2021 Note Date & [...] antibiotic treatment at home (ICD-10 - Z79.2) [employer] Other Evaluation + Plan note Radiology Note Date & Type Note Facility Evaluation + Plan note Future Appointments Appointment Date:01/10/2022 04:00:00 PM Scheduled Provider:Jeremias DAVISON DO Location:[facility] Appointment Type: Open Future Scheduled TestsXR Abdomen 1 View 09/21/21 [facility] Evaluation + Plan note Radiology Note Date & Type Note Facility Evaluation + Plan note Future Appointments Appointment Date:02/20/2022 03:30:00 PM Scheduled Provider: Location:[facility] Appointment Type:FM Medicare Wellness Subsequent Future Scheduled TestsXR Abdomen 1 View 09/21/21 [facility] Evaluation note Note Date & Type Note Facility Evaluation note No Information [facility] [employer] Other Evaluation note Note Date & Type Note Facility Evaluation note No assessment information availa ble [facility] Work Phone: History general Narrative - Reported Note Date & Type Note Facility History general Narrative - Reported Type Surgical History hysterectomy Surgical History partial colon remova l and reversal of colostomy Surgical History appendectomy [facility] [employer] Other Hospital course Narrative Note Date & Type Note Facility Hospital course Narrative No data available for this section [facility] Hospital Discharge instructions Note Date & Type Note Facility Hospital Discharge instructions No data available for this section [facility] Progress note Note Date & Type Note Facility Progress note No data available for this section [facility] Summary Purpose Family History No Family History Records FoundNo Family History Records FoundNo Family History Records FoundNo Family History Records Found Advance Directives No Advanced Directives Records Found Advance Directive Response Recorded Date/ Time Advance Directives No March 2:54pm Hospital Course Note MR#: [id number] I [facility] Pt. Name: Jarett Kebede Admitted: 07/31/2020 [...] section and content) DATE CREATED AUTHOR 08/09/2020 [facility] DATE CREATED AUTHOR AUTHOR'S ORGANIZ ATION 01/24/2022 [facility] DATE CREATED AUTHOR AUTHOR'S ORGANIZ ATION 11/28/2022 [facility] DATE CREATED AUTHOR AUTHOR'S ORGANIZ ATION 11/09/2023 [facility] Care Team (unrecognized sect ion and content) [...] BE BASED ON THE PRIMARY CLINICAL RECORDS. [employer] provides no warranty or guarantee of the accuracy or completeness of information in this document.
--- NOTE | 2023-11-09 10:37 | SWNOTE1 ---
Plan is for pt to be discharged today. Nurse practicitoner is working in discharge information and script for IV antibiotic. Once script is completed, SW to send referral to [facility] SW sent referral to [facility]. referral included face sheet, physician notes, script, PICC line information, and labs. TAHIRA called and spoke to [facility] and they are alright with start of care tomorrow, they just need PICC line information and dc information as well. TAHIRA advised CELL SUPPORT OPERATOR and nursing that pt will need first dose of Ertapenem at hospital.
--- NOTE | 2023-11-09 10:48 | P.DS_ITS ---
<Statement entered by Huong Núñez DO - 11/09/23 15:25> This documentation has been reviewed and approved.I have also seen and evaluated patient agree with the above assessments and plan of care and agree for discharge. DS: Providers Provider Date of admission: 11/08/23 15:13 Primary care physician: LEAH RODRIGUES Consults: 11/08/23 14:10 Consult to Bicycle Assembler Routine Reason for consult:: Intermediate Other reason:: Possible SNF, anticipate DC home, PICC/IV abx Physical Therapy Eval and Treat Routine Reason for consultation: WBAT R Foot w/ Surgical Shoe Discharging clinician: Dina Gómez DS: Diagnosis Discharge Diagnosis (1) Osteomyelitis: (2) Hyperglycemia: (3) Rheumatoid arthritis: (4) Hypertension: (5) Anxiety: DS: Summary Hospital Course Hospital Course: The patient was admitted in observation postoperatively for osteomyelitis after a right heel bone biopsy was performed by Dr Bryson for a PICC line placement, IV antibiotics and close monitoring after surgery. The patient's postoperative course was unremarkable and her pain is well-controlled. She is being discharged home with a PICC line in place in stable condition. We have prescribed ertapenem for a 4-week course pending final culture results of the bone biopsy. She will have home health services who will assist her with antibiotic administration at home. The patient is to follow-up with Dr Bryson next week as scheduled. She was also found to be mildly hyperglycemic on admission. An A1c was obtained which was above goal at 7.7. The patient is steroid-dependent for treatment of her RA. 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 We have referred the patient to her PCP for follow-up for hyperglycemia/DM2 management within 5 to 7 days. The patient is aware that good glucose control is important for adequate healing. Time Spent with Patient Time attestation: Total time spent providing and/or coordinating discharge services: Time spent: greater than 30 minutes Specific discharge activities: Physical exam, discussion of discharge plan, questions answered. Exam Constitutional Vital Signs, click to edit/add: Last Vital Signs Temp 98.3 F 11/09/23 08:30 Pulse 71 11/09/23 08:30 Resp 18 11/09/23 08:30 BP 147/90 H 11/09/23 08:30 Pulse Ox 94 L 11/09/23 08:30 O2 Del Method Room Air 11/09/23 08:30 O2 Flow Rate 1 11/08/23 17:34 Common normals: no apparent distress, oriented x3 and alert General appearance: cooperative Orientation/consciousness: Yes awake HENMT Common normals: normocephalic and head/scalp atraumatic Eye Common normals: PERRL, EOMs intact bilaterally, conjunctivae normal and no scleral icterus Respiratory Common normals: normal respiratory effort, no use of accessory muscles and clear to auscultation bilaterally Effort & inspection: able to speak in complete sentences and symmetric chest movement Cardio Common normals: no JVD, regular rate, regular rhythm, S1 normal heart sound, S2 normal heart sound, no murmurs and peripheral pulses 2+ throughout GI Common normals: Normal to inspection, nondistended, normoactive bowel sounds present, soft to palpation and non-tender Extremity Common normals: normal to inspection and normal capillary refill General: no clubbing and no cyanosis Right lower extremity: foot and digits (Post op dressing in place, D&I) Right foot and digits: neurovascular exam (Good CMS ) Neuro Common normals: moves all extremities, no focal motor deficits and no sensory deficits noted Speech: speech normal Psych Common normals: mental status grossly normal and activity/motor behavior normal DS: Data Data Completed and Pending Labs on day of discharge: Labs from last 24 hours 11/09/23 11/09/23 11/08/23 07:55 04:30 14:06 WBC 10.4 RBC 4.82 Hgb 13.7 Hct 43.1 MCV 89.4 MCH 28.4 MCHC 31.8 RDW 14.3 Plt Count 303 MPV 9.5 Neut % (Auto) 84.2 H Lymph % (Auto) 10.5 L [place] % (Auto) 4.5 Eos % (Auto) 0.0 L Baso % (Auto) 0.1 L Neut # (Auto) 8.7 H Lymph # (Auto) 1.1 L [place] # (Auto) 0.5 Eos # (Auto) 0.0 Baso # (Auto) 0.0 Abs Immat Gran (auto) 0.07 H Imm/Tot Granulo (auto) 0.7 H Sodium 141 Potassium 4.2 Chloride 104 Carbon Dioxide 31.6 Anion Gap 9.6 BUN 14.0 Creatinine 0.77 Est GFR ( Amer) >60 Est GFR (Non-Af Amer) >60 BUN/Creatinine Ratio 18.2 Glucose 148 H Estimat Average Glucose 174 Hemoglobin A1c 7.7 H Calcium 8.7 Total Bilirubin 0.3 AST 12 L ALT 22 Alkaline Phosphatase 73 Total Protein 7.2 Albumin 2.7 L Globulin 4.5 Albumin/Globulin Ratio 0.6 POC Glucose 144 H 122 H Discharge Plan Discharge Disposition: Home Health Service Discharge Medications: New ertapenem 1 gram recon soln 1 g IV DAILY 28 Days Qty: 28 0RF Continued atenolol 50 mg tablet 50 mg PO Q24H hydroxyzine pamoate 25 mg capsule 25 mg PO Q6H PRN (Reason: anxiety) ondansetron HCl 4 mg tablet 4 mg PO Q8H PRN (Reason: nausea and vomiting) prednisone 5 mg tablet 5 mg PO DAILY trazodone 100 mg tablet 100 mg PO QPM triamterene-hydrochlorothiazid 37.5-25 mg tablet 1 tab PO DAILY multivitamin [Daily Multi-Vitamin] Tablet 1 tab PO DAILY acetaminophen [Tylenol] 325 mg tablet 650 mg PO Q6H PRN (Reason: pain) Activity: increase activity as tolerated Diet: advance to your usual diet Print Language: Azerbaijani Activity Restrictions/Additional Instructions: - Follow up with your PCP as soon as possible to discuss hyperglycemia management (A1C 7.7) Forms: Portal Instructions Follow Up Appointments: November 12 @ 10:40am with Ann Oro NP [phone] Sun. November 13 @ 3:[address] Bryson [phone]
[2023-11-09] MEDS: ERTAPENEM SODIUM 1 GM in 0.9 % SODIUM CHLORIDE 50 ML IV (11:16)
--- NOTE | 2023-11-09 12:12 | CM.NOTE ---
Rounds made with Dr. Núñez, pt will discharge today on IV antibiotics with Alvin ZAVALA.
[2023-11-09 12:15] VITALS: O2SAT 95
--- NOTE | 2023-11-09 12:42 | SWNOTE1 ---
SW received call back from [facility] and they have received everything they need. Pt will have co-pay of $1.55 and insurance will cover 80% of supplies until she meets her out of pocket. They will deliver medication around noon tomorrow. TAHIRA advised pt of all the above. TAHIRA sent CRF, dc med rec, script and labs to [facility]. TAHIRA notified [facility] time of delivery for medication as well.
[2023-11-09 16:08] VITALS: BP 156/97; PULSE 59; TEMP 36.8; O2SAT 93
[2023-11-09] MEDS: OXYCODONE HCL 5 MG TABLET PO (16:08)
--- NOTE | 2023-11-12 11:20 | CM.DCFOLLOWU ---
Person spoke with: patient How are you feeling? well How is your pain? none Did you understand your discharge instructions? yes Do you have any questions about your discharge instructions? no Were you given any prescriptions at discharge? yes Were you able to get your prescriptions filled? yes, set up at hospital, home IV anbx Do you understand how to take your medications as ordered? yes Do you have any questions about your follow up appointment and do you plan to keep your follow up appointment? no questions moved F/U apts on same day Is there anything else that you would like to discuss? no Questions/Comments/Concerns/Other: N/A
== END 2023-11-09 17:15 | disposition home health service (06) ==
LOC: SURGOUT 11-09 08:54 → MS 11-09 10:43
PROVIDERS: Anesthesiology; Podiatrist Foot & Ankle Surgery; Admitting Provider Nurse Practitioner; PCP Family Medicine; Visit Provider Nurse Practitioner
PROC: (CPT 1480; principal; 2023-11-08 10:10)
DX: M86.171 Other acute osteomyelitis, right ankle and foot (principal); M86.671 Other chronic osteomyelitis, right ankle and foot; E09.65 Drug or chemical induced diabetes mellitus with hyperglycemia; T38.0X5A Adverse effect of glucocorticoids and synthetic analogues, initial encounter; M06.9 Rheumatoid arthritis, unspecified; I10 Essential (primary) hypertension; L88 Pyoderma gangrenosum; E66.01 Morbid (severe) obesity due to excess calories; Z68.43 Body mass index [BMI] 50.0-59.9, adult; M19.90 Unspecified osteoarthritis, unspecified site; F32.A Depression, unspecified; F41.9 Anxiety disorder, unspecified; H91.90 Unspecified hearing loss, unspecified ear; Z98.890 Other specified postprocedural states; Z90.49 Acquired absence of other specified parts of digestive tract; Z90.710 Acquired absence of both cervix and uterus; Z87.891 Personal history of nicotine dependence; Z79.899 Other long term (current) drug therapy; Z79.52 Long term (current) use of systemic steroids; Z86.16 Personal history of COVID-19
CPT/HCPCS: 20240 ×3; 36415; 36569; 64445; 73630; 76000; 80053; 82948; 83036; 85025; 87070; 87102; 87116; 87205; 87206; 88305; 88311; 94761; 96365; 96366; 96367; 96372; 99999; C1887; G0378; J1094; J1335; J2704

== ENCOUNTER 2024-04-03 12:44 | Outpatient (OUT) | payer MEDICARE, MEDICAID, SELFPAY ==
--- OUTSIDE RECORDS SUMMARY | 2024-04-03 13:02 | XMS_ITS | CCD ---
Author Organization [facility] CliniSynh Care Team Providers Care Barrel Polisher Name Role Phone SD Procedure Practitioner Unavailab JEREMIAS Everett Primary Care Unavailable JOVANI GOLD Surgeon Unavailable TED VALDIVIA Attending Unavailable TED VALDIVIA Admitting Unavailable SELF, REFERRED Referring Unavailable Jeremias DAVISON Primary Care Physician Albin Bruno MD Shay Baldwin Primary Care Provider [phone] MD Shay Baldwin Attending Provider [phone] SAMAN, DR JEREMIAS Moralez Primary Care Unavailable SUNSHINE BRYSON Attending Unavailable BRAYDON, SUNSHINE Vidal Admitting Unavailable SAMAN, DR JEREMIAS Moralez Primary Care Unavailable SUNSHINE BRYSON Attending Unavailable SUNSHINE BRYSON Admitting Unavailable SAMAN, DR JEREMIAS Moralez Primary Care Unavailable SUNSHINE BRYSON Attending Unavailable SUNSHINE BRYSON Admitting Unavailable SAMAN, DR JEREMIAS Moralez Primary Care Unavailable PEPE RUBIO Attending Unavaila PEPE Vidal Admitting Unavaila ble SAMAN, DR JEREMIAS Moralez Primary Care Unavailable [...] SAMAN, DR JEREMIAS Moralez Primary Care Unavailable BRAYDON, SUNSHINE Vidal Attending Unavailable BRAYDON, SUNSHINE Vidal Admitting Unavailable SAMAN, DR JEREMIAS Moralez Primary Care Unavailable BRAYDON, SUNSHINE Vidal Attending Unavailable BRAYDON, SUNSHINE Vidal Admitting Unavailable SAMAN, DR JEREMIAS Moralez Primary Care Unavailable BRAYDON, SUNSHINE Vidal Attending Unavailable BRAYDON, SUNSHINE Vidal Admitting Unavailable Braydon, DPM Sunshine Vidal Attending Provider [phone] Preethi, SENIOR SOFTWARE QUALITY ENGINEER Ann L Attending Unavailable Preethi, SENIOR SOFTWARE QUALITY ENGINEER Ann L Attending Unavailable Preethi, SENIOR SOFTWARE QUALITY ENGINEER Ann L Attending Unavailable Preethi, SENIOR SOFTWARE QUALITY ENGINEER Ann L Attending Unavailable Preethi, SENIOR SOFTWARE QUALITY ENGINEER Ann L Admitting Unavailable Preethi, SENIOR SOFTWARE QUALITY ENGINEER Ann L Attending Unavailable Preethi, SENIOR SOFTWARE QUALITY ENGINEER Ann L Attending Unavailable Obermeyer, FLIGHT TEST ENGINEER-C Ann L Attending Provider Braydon, Sunshine Vidal Attending Unavailable Braydon, Sunshine Vidal Admitting Unavailable Obermeyer, Ann L Admitting Unavailable Obermeyer, Ann L Attending Unavailable Allergies Allergy Classification Reported Allergen(s) Allergy Type Date of Onset Reaction(s) Facility (5 sources) Amoxicillin / Clavulanate; Translations: [AUGMENTIN] Drug Allergy 09-05-19 19 Illness (finding) [facility] Repository (4 sources) Calcium Channel Blockers; Translations: [calcium channel blockers] Drug allergy (disorder) 05-27-20 18 tachycardia [facility] (4 sources) Contrast media; Translations: [red dye] Food allergy (disorder) 01-20-20 17 insomnia [facility] (1 source) dilTIAZem; Translations: [DILTIAZEM HCL] Drug Allergy 09-12-19 19 [facility] (8 sources) Latex; Translations: [LATEX] Propensity to adverse reactions (disorder) 05-31-20 17 Unknown, Unknown Reaction [facility] (4 sources) Sulfamethoxazole / Trimethoprim; Translations: [Bactrim] Drug Allergy 05-08-20 18 [facility] (6 sources) Vancomycin; Translations: [vancomycin] Drug Allergy 05-08-20 18 Unknown Reaction [facility] (4 sources) Sulfamethoxazole / Trimethoprim; Translations: [sulfamethoxazole-t rimethoprim] Drug Allergy bloody stool, Unknown [facility] Other (4 sources) Vancomycin; Translations: [vancomycin] Drug Allergy itching, Unknown [facility] Other (2 sources) Amoxicillin / Clavulanate Drug Allergy Unknown [facility] Other (4 sources) Ciprofloxacin Drug Allergy 09-20-19 24 Unknown, Unknown Reaction [facility] (5 sources) Codeine; Translations: [codeine] Drug Allergy 09-20-19 24 Unknown, Unknown Reaction [facility] (4 sources) levoFLOXacin Drug Allergy 09-20-19 24 Unknown, Unknown Reaction [facility] (2 sources) Calcium Channel Antagonists Drug allergy Unknown [facility] Other (2 sources) cefdinir Drug Allergy 08-21-19 22 [facility] Rep[facility] (2 sources) Ciprofloxacin Drug Allergy [facility] (1 source) Codeine Drug Allergy 04-07-20 14 [facility] (2 sources) levoFLOXacin Drug Allergy [facility] (2 sources) Calcium Channel Blocking Agents-Benzothiazep gertrudis Drug allergy (disorder) 02-23-20 16 [facility] Rep[facility] (3 sources) Amoxicillin; Translations: [amoxicillin] Drug Allergy 09-20-19 Unknown Reaction [facility] (3 sources) Clavulanate; Translations: [clavulanic acid] Drug Allergy 09-20-19 Unknown Reaction [facility] (3 sources) Sulfamethoxazole; Translations: [sulfamethoxazole] Drug Allergy 09-20-19 Unknown Reaction [facility] (3 sources) Trimethoprim; Translations: [trimethoprim] Drug Allergy 09-20-19 Unknown Reaction [facility] (1 source) Ciprofloxacin Drug Allergy 09-20-19 [facility] Repository (1 source) Codeine Drug Allergy 09-20-19 [facility] Repository (1 source) levoFLOXacin Drug Allergy 09-20-19 [facility] Repository (1 source) Vancomycin Drug Allergy 09-20-19 [facility] Repository Medications Current Medications Medication Drug Class(es) Dates Sig (Normalized) Sig (Original) amitriptyline hydrochloride 50 mg oral tablet (1 source) Tricyclic Antidepressant Start: 01-10-2022 take 1 tablet by mouth once daily at bedtime amitriptyline 50 mg Tab 50 mg = 1 tab(s), Oral, Once a day (at bedtime), # 30 tab(s), Refills(s) 3, Pharmacy: [facility]/pharmacy #[id number], 160, cm, 07/31/20 7:46:00 EST, Height/Length Dosing, 145, kg, 07/31/20 7:46:00 EST, Weight Dosing Start Date: 01/10/22 Status: Ordered atenolol 50 mg oral tablet (4 sources) beta-Adrenergic Elliott Start: 11-28-2021 take 1 tablet by mouth once daily atenolol 50 mg Tab 50 mg, Oral, Daily, # 90 tab(s), Refills(s) 0, Pharmacy: [facility]/pharmacy #[id number], 160, cm, 07/31/20 7:46:00 EST, [...] q12hr, # 20 cap(s), Refills(s) 0, Pharmacy: [facility]/pharmacy #[id number], 160, cm, 07/31/20 7:46:00 EST, Height/Length Dosing, 145, kg, 07/31/20 7:46:00 EST, Weight Dosing Start Date: 11/29/20 Status: Ordered Colace (3 sources) Start: 01-10-2022 Colace Oral, B ID, Refills(s) 0 Start Date: 01/10/22 Status: Ordered take 1 capsule by [facility] every twenty-four hours Colace 100 MG 1 capsule as needed Orally Once a day Active doxycycline hyclate 100 mg oral capsule (1 source) Tetracycline-class Drug Start: 04-07-2021 take 1 capsule by mouth twice daily doxycycline hyclate 100 mg Cap 100 mg = 1 cap(s), Oral, BID, # 20 cap(s), Refills(s) 0, [id number] 160, cm, 07/31/20 7:46:00 EST, Height/Length [...] tab(s), Oral, Daily, 30 tab(s), Refill(s) 5, [facility]/pharmacy #[id number], 160, cm, 07/31/20 7:46:00 EST, [...] anxiety, # 40 tab(s), Refills(s) 2, Pharmacy: [facility]/pharmacy #[id number], 160, cm, 07/31/20 7:46:00 EST, [...] bedtime), # 45 EA, Refills(s) 1, Pharmacy: [facility]/pharmacy #[id number], 160, cm, 07/31/20 7:46:00 EST, Height/Length Dosing, 145, kg, 07/31/20 7:46:00 EST, Weight Dosing Start Date: 11/11/21 Status: Ordered Start: 11-11-2021 take 1 tablet by hong th once daily at bedtime traZODONE 100 mg Tab 100 mg = 1 tab(s), Oral, Once a day (at bedtime), # 90 tab(s), Refills(s) 1, Pharmacy: 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-2022 12-09-2019 Chronic Skin and subcutaneous tissue infections (5 sources) Pyoderma gangrenosum; Translations: [PYODERMA GANGRENOSUM] Onset: 08-14-2022 Episodic Past or Other Problems Problem Classification Problem Date Documented Da te Episodic/Chronic Open wounds of extremities (1 source) Unspecified open wound, left lower leg, initial encounter Onset: 09-01-2021 Resolved: 09-01-2021 Episodic Other aftercare (1 source) intermodal customer service (current) use of antibiotics Onset: 09-01-2021 Resolved: 09-01-2021 Episodic Other aftercare (1 source) Other terminal make up operator (current) drug therapy; Translations: [OTH RHIA CURRENT DRUG THERAPY] Onset: 08-20-2022 Episodic Superficial injury; contusion (1 source) Blister (nonthermal), right lower leg, initial encounter; Translations: [BLISTER NONTHERMAL RT LOW LEG INIT] Onset: 02-17-2022 Episodic Results Test Name Value Interpretation Reference Range Facil ity Alanine aminotransferase [En zymatic activity/volume] in Serum or PlasmaOrdered By: Ann Pride on 03-20-2024 ALT [Catalytic activity/Vol] 14 U/L Normal 7-52 [facility] Comment on above: Performed By: #### E SR, CBC, CMP #### [address] Albumin [Mass/volume] in Ser um or Plasma by Bromocresol green (BCG) dye binding methoOrdered By: Ann Pride on 03-20-2024 Albumin BCG dye [Mass/Vol] 3.6 g/dL 3.5-5.7 [facility] Alkaline phosphatase [Enzyma tic activity/volume] in Serum or PlasmaOrdered By: Ann Pride on 03-20-2024 ALP [Catalytic activity/Vol] 66 U/L Normal 34-104 [facility] Comment on above: Result Comment: PERF ORMED BY: [place] [address] PATHOLOGIST MANAGER PROCESS CRYSTAL SPRING M.D. Performed By: #### E SR, CBC, CMP #### [address] Aspartate aminotransferase [ Enzymatic activity/volume] in Serum or PlasmaOrdered By: Ann Pride on 03-20-2024 AST [Catalytic activity/Vol] 13 U/L Normal 13-39 [facility] Comment on above: Performed By: #### E SR, CBC, CMP #### [address] Automated basophil %Ordered By: Ann Pride on 03-20-2024 Basophils/100 WBC (Bld) 0.5 % Normal . [facility] Comment on above: Performed By: #### E SR, CBC, CMP #### [address] Automated basophil countOrde red By: Ann Pride on 03-20-2024 Basophils (Bld) [#/Vol] 0.0 10*3/uL Normal 0.0-0.2 [facility] Comment on above: Performed By: #### E SR, CBC, CMP #### [facility] [address] [place] [address] Automated blood monocyte cou ntOrdered By: Ann Pride on 03-20-2024 Monocytes (Bld) [#/Vol] 0.7 10*3/uL Normal 0.0-0.8 [facility] Comment on above: Performed By: #### E SR, CBC, CMP #### [facility] [address] Automated eosinophil %Ordere d By: Ann Pride on 03-20-2024 Eosinophils/100 WBC (Bld) 0.9 % Normal . [facility] Comment on above: Performed By: #### E SR, CBC, CMP #### [facility] [address] Automated eosinophil countOr dered By: Ann Pride on 03-20-2024 Eosinophils (Bld) [#/Vol] 0.1 10*3/uL Normal 0.0-0.45 [facility] Comment on above: Performed By: #### E SR, CBC, CMP #### [facility] [address] Automated monocyte %Ordered By: Ann Pride on 03-20-2024 Monocytes/100 WBC (Bld) 7.5 % Normal . [facility] Comment on above: Performed By: #### E SR, CBC, CMP #### [facility] [address] Automated neutrophil %Ordere d By: Ann Pride on 03-20-2024 Neutrophils/100 WBC (Bld) 74.5 % Normal . [facility] Comment on above: Performed By: #### E SR, CBC, CMP #### [address] Bilirubin.total [Mass/volume ] in Serum or PlasmaOrdered By: Ann Pride on 03-20-2024 Bilirubin [Mass/Vol] 0.4 mg/dL Normal 0.3-1.0 [facility] Comment on above: Performed By: #### E SR, CBC, CMP #### [address] Calcium [Mass/volume] in Ser um or PlasmaOrdered By: Ann Pride on 03-20-2024 Calcium [Mass/Vol] 9.2 mg/dL Normal 8.6-10.3 [facility] Comment on above: Performed By: #### E SR, CBC, CMP #### [address] Carbon dioxide, total [Moles /volume] in Serum or PlasmaOrdered By: Ann Pride on 03-20-2024 CO2 [Moles/Vol] 33.2 mmol/L High 21.0-31.0 [facility] Comment on above: Performed By: #### E SR, CBC, CMP #### [address] Chloride [Moles/volume] in S ant or PlasmaOrdered By: Ann Pride on 03-20-2024 Chloride [Moles/Vol] 100 mmol/L Normal 98-107 [facility] Comment on above: Performed By: #### E SR, CBC, CMP #### [address] Complete Blood Count Auto Di ffon 03-20-2024 Mean Corpuscular HGB Conc 32.9 g/dL Normal 32.0-35.0 [facility] Comment on above: Performed By: #### E SR, CBC, CMP #### [address] NRBC% 0.4 /100{WBC} Normal 0-0.5 [facility] Comment on above: Performed By: #### E SR, CBC, CMP #### [address] Comprehensive Metabolic Pane chan 03-20-2024 Albumin [Mass/Vol] 3.6 g/dL Normal 3.5-5.7 [facility] Comment on above: Performed By: #### E SR, CBC, CMP #### [address] GFR/1.73 sq M.predicted MDRD (S/P/Bld) [Vol rate/Area] mL/min/{1.73_m2} Normal [facility] Comment on above: Performed By: #### E SR, CBC, CMP #### [place] [address] [place] Creatinine [Mass/volume] in Serum or PlasmaOrdered By: Ann Pride on 03-20-2024 Creatinine [Mass/Vol] 0.68 mg/dL Normal 0.60-1.20 [facility] Comment on above: Performed By: #### E SR, CBC, CMP #### [address] Erythrocyte Sedimentation Ra daysi 03-20-2024 ESR (Bld) [Velocity] 35 mm/h High 0-29 [facility] Comment on above: Result Comment: PERF ORMED BY: [place] [address] PATHOLOGIST MANAGER PROCESS CRYSTAL SPRING M.D. Performed By: #### E SR, CBC, CMP #### [address] Erythrocyte distribution wid th [Ratio] by Automated countOrdered By: Ann Pride on 03-20-2024 Erythrocyte distribution width (RBC) [Ratio] 16.3 % High 11.9-15.3 [facility] Comment on above: Performed By: #### E SR, CBC, CMP #### [address] Erythrocyte sedimentation ra te by Photometric methodOrdered By: Ann Pride on 03-20-2024 ESR Photometric method (Bld) [Velocity] 35 mm/hr High 0-29 [facility] Erythrocytes [#/volume] in B lood by Automated countOrdered By: Ann Pride on 03-20-2024 RBC (Bld) [#/Vol] 5.04 10*6/uL High 3.60-5.00 [facility] Comment on above: Performed By: #### E SR, CBC, CMP #### [address] Glucose [Mass/volume] in Ser um or PlasmaOrdered By: Ann Pride on 03-20-2024 Glucose [Mass/Vol] 138 mg/dL High 70-100 [facility] Comment on above: ADA recommended refe rence rangeRandom Glucose Reference Range is dependent on time and content of last meal. Glucose of more than 200 mg/dL in a nonstressed, ambulatory subject supports the diagnosis of Diabetes Mellitus. Result Comment: [place] om Glucose Reference Range is dependent on time and content of last meal. Glucose of more than 200 mg/dL in a nonstressed, ambulatory subject supports the diagnosis of Diabetes Mellitus. ADA recommended reference range Performed By: #### E SR, CBC, CMP #### [facility] [address] Hematocrit [Volume Fraction] of Blood by Automated countOrdered By: Ann Pride on 03-20-2024 Hematocrit (Bld) [Volume fraction] 44.1 % Normal 34.0-46.4 [facility] Comment on above: Performed By: #### E SR, CBC, CMP #### [address] Hemoglobin [Mass/volume] in BloodOrdered By: Ann Pride on 03-20-2024 Hemoglobin (Bld) [Mass/Vol] 14.5 g/dL Normal 11.8-15.4 [facility] Comment on above: Performed By: #### E SR, CBC, CMP #### [address] Leukocytes [#/volume] correc kendra for nucleated erythrocytes in Blood by Automated counOrdered By: Ann Pride on 03-20-2024 WBC corrected for nucl RBC Auto (Bld) [#/Vol] 9.2 10*3/uL 3.8-11.6 [facility] Leukocytes [#/volume] in Blo od by Automated countOrdered By: Ann Pride on 03-20-2024 WBC (Bld) [#/Vol] 9.2 10*3/uL Normal 3.8-11.6 [facility] Comment on above: Performed By: #### E SR, CBC, CMP #### [place] [address] [place] Lymphocytes [#/volume] in Bl ood by Automated countOrdered By: Ann Pride on 03-20-2024 Lymphocytes (Bld) [#/Vol] 1.5 10*3/uL Normal 1.00-4.8 [facility] Comment on above: Performed By: #### E SR, CBC, CMP #### [address] Lymphocytes/100 leukocytes i n Blood by Automated countOrdered By: Ann Pride on 03-20-2024 Lymphocytes/100 WBC (Bld) 16.6 % Normal . [facility] Comment on above: Performed By: #### E SR, CBC, CMP #### [address] MCH [Entitic mass] by Automa kendra countOrdered By: Ann Pride on 03-20-2024 MCH (RBC) [Entitic mass] 28.8 pg Normal 24.7-34.3 [facility] Comment on above: Performed By: #### E SR, CBC, CMP #### [address] MCHC Auto (RBC) [Mass/Vol]Or dered By: Ann Pride on 03-20-2024 MCHC (RBC) [Mass/Vol] 32.9 g/dL 32.0-35.0 [facility] MCV [Entitic volume] by Auto mated countOrdered By: Ann Pride on 03-20-2024 MCV (RBC) [Entitic vol] 87.5 fL Normal 80-100 [facility] Comment on above: Performed By: #### E SR, CBC, CMP #### [address] Neutrophils [#/volume] in Bl ood by Automated countOrdered By: Ann Pride on 03-20-2024 Neutrophils (Bld) [#/Vol] 6.9 10*3/uL Normal 1.8-7.7 [facility] Comment on above: Performed By: #### E SR, CBC, CMP #### [place] [address] [place] No Panel InformationOrdered By: Ann Pride on 03-20-2024 Estimated GFR (CKD-EPI) > 60.0 mL/Min [facility] Pharmacy Creatinine Clearance (Chem N/A [facility] Nucleated erythrocytes [Pres ence] in Blood by Automated countOrdered By: Ann Pride on 03-20-2024 Nucleated RBC Auto Ql (Bld) 0.4 /100{WBC} 0-0.5 [facility] Platelet mean volume [Entiti c volume] in Blood by Automated countOrdered By: Ann Pride on 03-20-2024 Platelet mean volume (Bld) [Entitic vol] 8.5 fL Normal 6.3-10.7 [facility] Comment on above: Performed By: #### E SR, CBC, CMP #### [facility] [address] [place] [address] Platelets [#/volume] in Bloo d by Automated countOrdered By: Ann Pride on 03-20-2024 Platelets (Bld) [#/Vol] 272 10*3/uL Normal 150-450 [facility] Comment on above: Performed By: #### E SR, CBC, CMP #### [facility] [address] [place] [address] Potassium [Moles/volume] in Serum or PlasmaOrdered By: Ann Pride on 03-20-2024 Potassium [Moles/Vol] 4.6 mmol/L Normal 3.5-5.1 [facility] Comment on above: Performed By: #### E SR, CBC, CMP #### [facility] [address] Protein [Mass/volume] in Ser um or PlasmaOrdered By: Ann Pride on 03-20-2024 Protein [Mass/Vol] 6.5 g/dL Normal 6.4-8.9 [facility] Comment on above: Performed By: #### E SR, CBC, CMP #### [facility] [address] [place] [address] Serum globulin measurement b y calculation (mass/volume)Ordered By: Ann Pride on 03-20-2024 Globulin (S) [Mass/Vol] 2.9 g/dL Normal [facility] Comment on above: Performed By: #### E SR, CBC, CMP #### [facility] [address] Serum or plasma albumin/glob ulin mass ratioOrdered By: Ann Pride on 03-20-2024 Albumin/Globulin [Mass ratio] 1.2 {ratio} Normal [facility] Comment on above: Performed By: #### E SR, CBC, CMP #### [address] Serum or plasma anion gap de terminationOrdered By: Ann Pride on 03-20-2024 Anion gap [Moles/Vol] 11.4 mmol/L Normal 6.0-15.0 [facility] Comment on above: Performed By: #### E SR, CBC, CMP #### [address] Sodium [Moles/volume] in Ser um or PlasmaOrdered By: Ann Pride on 03-20-2024 Sodium [Moles/Vol] 140 mmol/L Normal 136-145 [facility] Comment on above: Performed By: #### E SR, CBC, CMP #### [address] Urea nitrogen [Mass/volume] in Serum or PlasmaOrdered By: Ann Pride on 03-20-2024 Urea nitrogen [Mass/Vol] 17 mg/dL Normal 7-25 [facility] Comment on above: Performed By: #### E SR, CBC, CMP #### [address] Ambulatory Visit Summaryon 0 01-21-2024 Ambulatory Visit Summary Ambulatory Visit Summary JARETT KEBEDE :1965 Visit Date:05/15/2023 Ambulatory Visit Instructions Your Care Team Primary Care Physician - Preethi SENIOR SOFTWARE QUALITY ENGINEER, Ann L This Is Your Medications List atenolol (atenolol 50 mg Tab) hydrOXYzine (hydrOXYzine pamoate 25 mg Cap) hydrochlorothiazide -triamterene (hydrochlorothiazid e-triamterene 25 mg-37.5 mg Tab) multivitamin with minerals ondansetron (Zofran) predniSONE (predniSONE 5 mg Tab) predniSONE (predniSONE 5 mg Tab) sitagliptin (Januvia 50 mg Tab) trazodone (traZODONE 100 mg Tab) Procedures Performed Appendectomy (2017), Pleural effusion (2017), hysterectomy (1999), Colon part, Ileostomy, Adrian - Kay drain, Pyoderma, Surgery. What to do next Scheduled Follow-Up Appointments 2023 1:00 PM EDT With: Where: [facility] Normal [address] [place] [address]- \.br\ Medications\.br \ What How Much When Instructions\.b r\ New atenolol (atenolol 50 mg Tab) 50 Milligram By Mouth Every day Refills: 3 Pickup at [facility]/pharmacy #[id number]\.br\ New hydrOXYzine (hydrOXYzine pamoate 25 mg Cap) 1 Capsules By Mouth 4 times a day as needed for for anxiety Refills: 2 Pickup at [facility]/pharmacy #[id number]\.br\ Changed ondansetron (Zofran) 4 Milligram By Mouth 2 times a day as needed for as needed for nausea/vomiting \.br\ Changed predniSONE (predniSONE 5 mg Tab) See instructions TAKE 2 BY MOUTH EVERY DAY IN THE MORNING \.br\ Changed predniSONE (predniSONE 5 mg Tab) 3 Tablets By Mouth Every day\.br\ Changed trazodone (traZODONE 100 mg Tab) 1 Tablets By Mouth Once a day (at bedtime)\.br\ Unchanged hydrochlorothia zide-triamteren e (hydrochlorothi azide-triamtere ne 25 mg-37.5 mg Tab) 1 Tablets By Mouth Every day\.br\ Unchanged multivitamin with minerals\.br\ Unchanged sitagliptin (Januvia 50 mg Tab) 1 Tablets By Mouth Every day\.br\ Pharmacy Information\.br \ [facility]/pharmacy #[id number]: [address], [place] [id number] [phone]\.br\ Allergies\.br\ Augmentin (Sickness)\.br\ Bactrim (bloody stool)\.br\ Latex\.br\ Red Dye (insomnia)\.br\ calcium channel blockers (tachycardia)\. br\ vancomycin (itching)\.br\ Problems\.br\ Ongoing - Any problem that you are currently receiving treatment for.\.br\ Breast cancer screening by mammogram\.br\ Dyskinesia of gallbladder\.br \ Elevated hemoglobin A1c measurement\.br \ Generalized anxiety disorder\.br\ Hypertension\.b r\ intermodal customer service current use of systemic steroids\.br\ Morbid obesity\.br\ Osteomyelitis\. 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 Please share your experience with us by completing your survey. We appreciate your feedback and thank you for choosing us for your care.\.br\ \.br\ [facility] 2023 Home Health Records [id number] [facility] Population Healthon 12-05-19 Population Health Case Information Case Priority: None Programs: -- Referral Source: Professor Of Social Work Referral Reason: Care coordination Case Type: Transition Care Management Risk Score: -- Case Status: Enrolled (November 12, 2023) Date Assigned: November 12, 2023 Assigned By: Harrison Diaz Date Enrolled: November 12, 2023 Assigned Primary Personnel: Harrison Diaz Assigned Secondary Personnel: -- Case Physician: Ann Glasgow Problems Ongoing Breast cancer screening by mammogram Dyskinesia of gallbladder Elevated hemoglobin A1c measurement Generalized anxiety disorder Hypertension intermodal customer service current use of systemic steroids Morbid obesity Osteomyelitis Pruritic condition 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 Home Medications atenolol 50 mg Tab, 50 mg, Oral, Daily, 1 refills hydrochlorothiazide -triamterene 25 mg-37.5 mg Tab, 1 tab(s), Oral, Daily, 3 refills hydrOXYzine pamoate 25 mg Cap, 25 mg= 1 cap(s), Oral, QID, PRN, 2 refills Januvia 50 mg Tab, 50 mg= 1 tab(s), Oral, Daily multivitamin with minerals predniSONE 5 mg Tab, See Instructions predniSONE 5 mg Tab, 15 mg= 3 tab(s), Oral, Daily traZODONE 100 mg Tab, 100 mg= 1 tab(s), Oral, Once a day (at bedtime), 3 refills Zofran, 4 mg, Oral, BID, PRN Allergies Augmentin (Sickness) Bactrim (bloody stool) Latex Red Dye (insomnia) calcium channel blockers (tachycardia) vancomycin (itching) Social History Alcohol - Denies Alcohol Use, 02/19/2018 Substance Abuse - Denies Substance Abuse, 02/19/2018 Tobacco - Denies Tobacco Use, 02/19/2018 Former smoker, quit more than 30 days ago Tobacco Use:. Never Smokeless Tobacco Use:. Started age 15.0 Years. Stopped age 37 Years. Household tobacco concerns: No., 11/14/2023 Family History CVA: Father. Cancer: Mother. Diabetes mellitus type 1: Mother and Brother. Hyperlipidemia: Father and Brother. Hypertension: Mother and Father. Primary malignant neoplasm of female genital organ: Mother. Stroke: Father. Screenings and Assessments 11/12/23 13:34:00 Result Name Value Comment Phone Call Monitoring Consent Agreed to continue call Phone Verification Patient Information Full name, street address and date of verified CM Program Enrollment Provides verbal consent for enrollment Goals and Interventions Care Plan Progress Note TCM#4- Spoke with patient for final TCM program call- states she is doing good. Reports Dr. Bryson removed her stitches at yesterdays appointment, 12/04/23. She will return to ortho in about 3 weeks for f/u. Patient reports her right foot is a little swollen and states Dr. Bryson said this was to be expected. CN recommended elevation of RLE at rest and when able. Patient has appointment with Dr. Bruno on 11/2923. He will determine if PICC remains in place or can be d/c. Patient continues ATB therapy. Home health has been changing PICC line dressing, is due to come out 12/06/23. Patient did start Januvia, and states she has been tolerating the medication just fine. Patient denies any further questions or concerns. Notes she has an appointment today with RA at 1130. Patient denies any need for medication refills. Communication Events Date: December 05, 2023 Method: Phone call Type: Outbound Duration (min): 4 Outcome: Case discussion Contact Type: perinatal coordinator Contact Name: Harrison Diaz Notes: TCM#4- see tcm note. Created By: Harrison Diaz Date: November 28, 2023 Method: Phone call Type: Outbound Duration (min): 3 Outcome: Case discussion Contact Type: perinatal coordinator Contact Name: Harrison Diaz Notes: TCM#3- see tcm note. Created By: Harrison Diaz Date: November 21, 2023 Method: Phone call Type: Outbound Duration (min): 4 Outcome: Case discussion Contact Type: perinatal coordinator Contact Name: Harrison Diaz Notes: TCM#2- see tcm note. Created By: Harrison Diaz Date: November 12, 2023 Method: Phone call Type: Outbound Duration (min): 9 Outcome: Case discussion Contact Type: perinatal coordinator Contact Name: Harrison Diaz Notes: TCM#1- see tcm note. Created By: Harrison Diaz [facility] 11-28-[address] [facility] Case Information Case Priority: None Programs: -- Referral Source: Professor Of Social Work Referral Reason: Care coordination Case Type: Transition Care Management Risk Score: -- Case Status: Enrolled (November 12, 2023) Date Assigned: November 12, 2023 Assigned By: Harrison Diaz Date Enrolled: November 12, 2023 Assigned Primary Personnel: Harrison Diaz Assigned Secondary Personnel: -- Case Physician: Ann Glasgow Problems Ongoing Breast cancer screening by mammogram Dyskinesia of gallbladder Elevated hemoglobin A1c measurement Generalized anxiety disorder Hypertension [facility] current use of systemic steroids Morbid obesity Osteomyelitis Pruritic condition 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 Home Medications atenolol 50 mg Tab, 50 mg, Oral, Daily, 1 refills hydrochlorothiazide -triamterene 25 mg-37.5 mg Tab, 1 tab(s), Oral, Daily, 3 refills hydrOXYzine pamoate 25 mg Cap, 25 mg= 1 cap(s), Oral, QID, PRN, 2 refills Januvia 50 mg Tab, 50 mg= 1 tab(s), Oral, Daily multivitamin with minerals predniSONE 5 mg Tab, See Instructions predniSONE 5 mg Tab, 15 mg= 3 tab(s), Oral, Daily traZODONE 100 mg Tab, 100 mg= 1 tab(s), Oral, Once a day (at bedtime), 3 refills Zofran, 4 mg, Oral, BID, PRN Allergies Augmentin (Sickness) Bactrim (bloody stool) Latex Red Dye (insomnia) calcium channel blockers (tachycardia) vancomycin (itching) Social History Alcohol - Denies Alcohol Use, 02/19/2018 Substance Abuse - Denies Substance Abuse, 02/19/2018 Tobacco - Denies Tobacco Use, 02/19/2018 Former smoker, quit more than 30 days ago Tobacco Use:. Never Smokeless Tobacco Use:. Started age 15.0 Years. Stopped age 37 Years. Household tobacco concerns: No., 11/14/2023 Family History CVA: Father. Cancer: Mother. Diabetes mellitus type 1: Mother and Brother. Hyperlipidemia: Father and Brother. Hypertension: Mother and Father. Primary malignant neoplasm of female genital organ: Mother. Stroke: Father. Screenings and Assessments 11/12/23 13:34:00 Result Name Value Comment Phone Call Monitoring Consent Agreed to continue call Phone Verification Patient Information Full name, street address and date of verified CM Program Enrollment Provides verbal consent for enrollment Goals and Interventions Care Plan Progress Note TCM#3- Patient states 'I', doing okay,' 'everything is really good.' Patient denies any pain to right foot. Notes sutures are still intact. Patient adds she has her second follow up with Dr. Bryson today and hopes he removes them. Patient also has a follow up chest x ray for Dr. Neff this afternoon. Patient states home health nurse was to her house yesterday and changed PICC line dressing. Patient denies any concerns with PICC. Patient denies bowel issues or concerns, denies diarrhea or constipation. Patient did doper her new rx of Januvia yesterday states she will start tonight once she is home from appointments. Patient notes she wouldn't want to be out and about if she were to have GI side effects. Patient denies any further questions or concerns. Communication Events Date: November 28, 2023 Method: Phone call Type: Outbound Duration (min): 3 Outcome: Case discussion Contact Type: perinatal coordinator Contact Name: Harrison Diaz Notes: TCM#3- see tcm note. Created By: Harrison Diaz Date: November 21, 2023 Method: Phone call Type: Outbound Duration (min): 4 Outcome: Case discussion Contact Type: perinatal coordinator Contact Name: Harrison Diaz Notes: TCM#2- see tcm note. Created By: Harrison Diaz Date: November 12, 2023 Method: Phone call Type: Outbound Duration (min): 9 Outcome: Case discussion Contact Type: perinatal coordinator Contact Name: Harrison Diaz Notes: TCM#1- see tcm note. Created By: aHrrison Diaz [facility] 11-21-[address] [facility] Case Information Case Priority: None Programs: -- Referral Source: Professor Of Social Work Referral Reason: Care coordination Case Type: Transition Care Management Risk Score: -- Case Status: Enrolled (November 12, 2023) Date Assigned: November 12, 2023 Assigned By: Harrison Diaz Date Enrolled: November 12, 2023 Assigned Primary Personnel: Harrison Diaz Assigned Secondary Personnel: -- Case Physician: Ann Glasgow Problems Ongoing Breast cancer screening by mammogram Dyskinesia of gallbladder Elevated hemoglobin A1c measurement Generalized anxiety disorder Hypertension [facility] current use of systemic steroids Morbid obesity Osteomyelitis Pruritic condition 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 Home Medications atenolol 50 mg Tab, 50 mg, Oral, Daily, 1 refills hydrochlorothiazide -triamterene 25 mg-37.5 mg Tab, 1 tab(s), Oral, Daily, 3 refills hydrOXYzine pamoate 25 mg Cap, 25 mg= 1 cap(s), Oral, QID, PRN, 2 refills Januvia 50 mg Tab, 50 mg= 1 tab(s), Oral, Daily multivitamin with minerals predniSONE 5 mg Tab, See Instructions predniSONE 5 mg Tab, 15 mg= 3 tab(s), Oral, Daily traZODONE 100 mg Tab, 100 mg= 1 tab(s), Oral, Once a day (at bedtime), 3 refills Zofran, 4 mg, Oral, BID, PRN Allergies Augmentin (Sickness) Bactrim (bloody stool) Latex Red Dye (insomnia) calcium channel blockers (tachycardia) vancomycin (itching) Social History Alcohol - Denies Alcohol Use, 02/19/2018 Substance Abuse - Denies Substance Abuse, 02/19/2018 Tobacco - Denies Tobacco Use, 02/19/2018 Former smoker, quit more than 30 days ago Tobacco Use:. Never Smokeless Tobacco Use:. Started age 15.0 Years. Stopped age 37 Years. Household tobacco concerns: No., 11/14/2023 Family History CVA: Father. Cancer: Mother. Diabetes mellitus type 1: Mother and Brother. Hyperlipidemia: Father and Brother. Hypertension: Mother and Father. Primary malignant neoplasm of female genital organ: Mother. Stroke: Father. Screenings and Assessments 11/12/23 13:34:00 Result Name Value Comment Phone Call Monitoring Consent Agreed to continue call Phone Verification Patient Information Full name, street address and date of verified CM Program Enrollment Provides verbal consent for enrollment Goals and Interventions Care Plan Progress Note TCM#2- Patient states she is doing 'just fine.' Patient denies any pain to right foot. States she is ambulating using her rollator but mostly d/t her arthritic knees and not her foot. Patient is no longer wearing the boot. Patient states home health nurse was out to home on 11/20/23 and changed both foot dressing and PICC line dressing. Patient states per hh, both areas looked good. Patient does note on occasion she has a slight burning on top of right foot as previously reported. States it comes and goes very quickly, notes symptom is improving. Patient states sutures are intact and she has a follow up with Dr. Bryson again on 11/28/23. Patient denies bowel issues or concerns, states they are 'just fine.' Patient denies any urinary issues. Patient states she is eating and drinking 'okay.' Patient states she is sleeping good, 'sleeping better than usual actually.' Patient has not picked up Januvia RX (see previous note), she is waiting for assistance d/t unable to drive. Patient will notify office if any issues or concerns regarding new RX. Patient denies any further questions or concerns. Communication Events Date: November 21, 2023 Method: Phone call Type: Outbound Duration (min): 4 Outcome: Case discussion Contact Type: perinatal coordinator Contact Name: Harrison Diaz Notes: TCM#2- see tcm note. Created By: Harrison Diaz Date: November 12, 2023 Method: Phone call Type: Outbound Duration (min): 9 Outcome: Case discussion Contact Type: perinatal coordinator Contact Name: Harrison Diaz Notes: TCM#1- see tcm note. 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 Elevated hemoglobin A1c measurement Osteomyelitis Former smoker Your Care Team Attending Physician - Ann Glasgow Primary Care Physician - Ann Glasgow This Is Your Medications List atenolol (atenolol 50 mg Tab) hydrOXYzine (hydrOXYzine pamoate 25 mg Cap) hydrochlorothiazide -triamterene (hydrochlorothiazid e-triamterene 25 mg-37.5 mg Tab) metformin (metformin 500 mg Tab) multivitamin with minerals ondansetron (Zofran) predniSONE (predniSONE 5 mg Tab) predniSONE (predniSONE 5 mg Tab) trazodone (traZODONE 100 mg Tab) Procedures Performed Appendectomy (2017), Pleural effusion (2016), hysterectomy (1999), Colon part, Ileostomy, Adrian - Kay drain, Pyoderma, Surgery. Discharge Vitals Heart Rate (Peripheral) 80 Respiratory Rate 18 Blood Pressure 128/84 Height 157.0 cm Height 62 in What to do next Scheduled Follow-Up Appointments 2023 1:00 PM EDT With: Where: [facility] [address] [place] [address]- \.br\ Medications\.br \ What How Much When Why Instructions\.b r\ New metformin (metformin 500 mg Tab) 1 Tablets By Mouth 2 times a day Former smoker [facility] current use of systemic steroids Elevated hemoglobin A1c measurement Pickup at [facility]/pharmacy #[id number]\.br\ New trazodone (traZODONE 100 mg Tab) 1 Tablets By Mouth Once a day (at bedtime) Refills: 3 Pickup at [facility]/pharmacy #[id number]\.br\ Unchanged atenolol (atenolol 50 mg Tab) 50 Milligram By Mouth Every day\.br\ Unchanged hydrochlorothia zide-triamteren e (hydrochlorothi azide-triamtere ne 25 mg-37.5 mg Tab) 1 Tablets By Mouth Every day\.br\ Unchanged hydrOXYzine (hydrOXYzine pamoate 25 mg Cap) 1 Capsules By Mouth 4 times a day as needed for for anxiety\.br\ Unchanged multivitamin with minerals\.br\ Unchanged ondansetron (Zofran) 4 Milligram By Mouth 2 times a day as needed for as needed for nausea/vomiting \.br\ Unchanged predniSONE (predniSONE 5 mg Tab) 3 Tablets By Mouth Every day\.br\ Unchanged predniSONE (predniSONE 5 mg Tab) See instructions TAKE 2 BY MOUTH EVERY DAY IN THE MORNING Pickup at [facility]/pharmacy #[id number]\.br\ Pharmacy Information\.br \ [facility]/pharmacy #[id number]: [address], [place] [phone]\.br\ Allergies\.br\ Augmentin (Sickness)\.br\ Bactrim (bloody stool)\.br\ Latex\.br\ Red Dye (insomnia)\.br\ calcium channel blockers (tachycardia)\. br\ vancomycin (itching)\.br\ Problems\.br\ Ongoing - Any problem that you are currently receiving treatment for.\.br\ Breast cancer screening by mammogram\.br\ Dyskinesia of gallbladder\.br \ Elevated hemoglobin A1c measurement\.br \ Generalized anxiety disorder\.br\ Hypertension\.b r\ [facility] current use of systemic steroids\.br\ Morbid obesity\.br\ Osteomyelitis\. 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 Please share your experience with us by completing your survey. We appreciate your feedback and thank you for choosing us for your care.\.br\ \.br\ [facility] Family Medicine Office/Clini c Noteon 11-14-2023 Family Medicine Office/Clinic Note HPI Staff Jarett is a 58 year old female presenting for TCM follow up TCM: Hospital: [facility] Admission date: 11/08/23 Discharge date: 11/09/23 Symptoms the patient presented with: Testing: biopsy right foot Current concerns: pt discharged with home health , While in hospital A1c 7.7 no history of Diabetes but is on skilled nursing use of steroids for RA pt has appointment with RA doctors 12/09/23 she is about out of prednisone and wanted to know if she could get a short term supply to last until her appointment. Due to her foot she has to cancel with he doctor and now they don't want to refill until she comes in for her appointment. pt has follow up appointment with Dr Bryson today at 3:15 pt refused to be weighed History of Present Illness pt presents today for TCM follow up. Review of Systems PHQ Score Initial Depression Screen Score: 0 SCORE Physical Exam Vitals & Measurements HR: 80(Peripheral) RR: 18 BP: 128/84 SpO2: 99% HT: 62 in HT: 157.0 cm General: alert, no acute distress ENMT: oral mucosa moist, no pharyngeal erythema or exudate Cardiovascular: regular rate and rhythm, normal peripheral perfusion Respiratory: Lungs CTA, respirations non labored Extremities: no deformity, no trauma Neurological: oriented x 4, LOC appropriate for age, CN II-XII intact, motor strength equal & normal bilaterally, speech normal right foot wrapped in harshad wrap was changed by HH yesterday, walks with cane Assessment/Plan 1. [facility] current use of systemic steroids (Z79.52: intermodal customer service (current) use of systemic steroids) pt has been on oral steroids for years due to RA. that is the only thing that helps control her pain. is in need of refill. discussed terminal make up operator uses of steroids risks vs. benefits. RTC 3 months for HGAB1C Ordered: metformin, 500 mg = 1 tab(s), Oral, BID, # 180 tab(s), Refills(s) 0, Pharmacy: [facility] #[id number], 157, cm, 11/14/23 14:07:00 EDT, Height/Length Dosing TCM Trans care mgmt 7 day disch [id number] 2. Elevated hemoglobin A1c measurement (R73.09: Other abnormal glucose) HGBA1C in hospital was 7.7. will start metformin and repeat in 3 months Ordered: metformin, 500 mg = 1 tab(s), Oral, BID, # 180 tab(s), Refills(s) 0, Pharmacy: [id number], 157, cm, 11/14/23 14:07:00 EDT, Height/Length Dosing TCM Trans care mgmt 7 day disch [id number] 3. Osteomyelitis (M86.9: Osteomyelitis, unspecified) pt was in hospital for osteomyelitis. had biopsy by Dr. Bryson. will follow up with him this afternoon. Ordered: TCM Trans care mgmt 7 day disch [id number] 4. Former smoker (Z87.891: Personal history of nicotine dependence) continue not smoking Ordered: metformin, 500 mg = 1 tab(s), Oral, BID, # 180 tab(s), Refills(s) 0, Pharmacy: [id number], 157, cm, 11/14/23 14:07:00 EDT, Height/Length Dosing TCM Trans care mgmt 7 day disch [id number] Orders: predniSONE, See Instructions, TAKE 2 BY MOUTH EVERY DAY IN THE MORNING, # 60 tab(s), Refills(s) 0, Pharmacy: [id number], 157, cm, 11/14/23 14:07:00 EDT, Height/Length Dosing trazodone, 100 mg = 1 tab(s), Oral, Once a day (at bedtime), # 45 EA, Refills(s) 3, [id number] 160.6, cm, 11/29/22 14:47:00 EDT, Height/Length Dosing trazodone, 100 mg = 1 tab(s), Oral, Once a day (at bedtime), # 45 EA, Refills(s) 3, [id number] 157, cm, 11/14/23 14:07:00 EDT, Height/Length Dosing Follow-up No qualifying data available Problem List/Past Medical History Ongoing Breast cancer screening by mammogram Dyskinesia of gallbladder Elevated hemoglobin A1c measurement Generalized anxiety disorder Hypertension 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 Medications atenolol 50 mg Tab, 50 mg, Oral, Daily, 1 refills hydrochlorothiazide -triamterene 25 mg-37.5 mg Tab, 1 tab(s), Oral, Daily, 3 refills hydrOXYzine pamoate 25 mg Cap, 25 mg= 1 cap(s), Oral, QID, PRN, 2 refills metformin 500 mg Tab, 500 mg= 1 tab(s), Oral, BID multivitamin with minerals predniSONE 5 mg Tab, See Instructions predniSONE 5 mg Tab, 15 mg= 3 tab(s), Oral, Daily traZODONE 100 mg Tab, 100 mg= 1 tab(s), Oral, Once a day (at bedtime), 3 refills Zofran, 4 mg, Oral, BID, PRN Allergies Augmentin (Sickness) Bactrim (bloody stool) Latex Red Dye (insomnia) calcium channel blockers (tachycardia) vancomycin (itching) Social History Alcohol - Denies Alcohol Use, 02/19/2018 Substance Abuse - Denies Substance Abuse, 02/19/2018 Tobacco - Denies Tobacco Use, 02/19/2018 Former smoker, quit more than 30 days ago Tobacco Use:. Never Smokeless Tobacco Use:. Started age [address] (more content not included)... [facility] Comment on above: Result Comment: Elec tronically Signed By: Ann Glasgow\.br\Date and Time Signed: 11/14/23 14:43 EDT Outside [facility] Correspo ndenceon 11-13-2023 Outside Hospital Correspondence [id number] [id number] [facility] RAD - MISCon 11-13-2023 RAD - MISC [id number] [id number] [facility] 11-12-[address] [facility] Case Information Case Priority: None Programs: -- Referral Source: Professor Of Social Work Referral Reason: Care coordination Case Type: Transition Care Management Risk Score: -- Case Status: Enrolled (November 12, 2023) Date Assigned: November 12, 2023 Assigned By: Harrison Diaz Date Enrolled: November 12, 2023 Assigned Primary Personnel: Harrison Diaz Assigned Secondary Personnel: -- Case Physician: Ann Glasgow Problems Ongoing Breast cancer screening by mammogram Dyskinesia of gallbladder Generalized anxiety disorder Hypertension Morbid obesity Pruritic condition 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 Home Medications atenolol 50 mg Tab, 50 mg, Oral, Daily, 1 refills hydrochlorothiazide -triamterene 25 mg-37.5 mg Tab, 1 tab(s), Oral, Daily, 3 refills hydrOXYzine pamoate 25 mg Cap, 25 mg= 1 cap(s), Oral, QID, PRN, 2 refills multivitamin with minerals predniSONE 5 mg Tab, 15 mg= 3 tab(s), Oral, Daily traZODONE 100 mg Tab, 0.5 tab, Oral, Once a day (at bedtime), 3 refills Zofran, 4 mg, Oral, BID, PRN Allergies Augmentin (Sickness) Bactrim (bloody stool) Red [...] of female genital organ: Mother. Stroke: Father. Screenings and Assessments 11/12/23 13:34:00 Result Name Value Comment Phone Call Monitoring Consent Agreed to continue call Phone Verification Patient Information Full name, street address and date of verified CM Program Enrollment Provides verbal consent for enrollment Goals and Interventions Care Plan Progress Note Admit Date: 11/08/23 [facility] Date of Discharge: 11/09/23 Follow-up appointment scheduled? yes, TCM f/u with Vidhi Oro 11/14/23 at 1400 Did you understand your discharge instructions? yes Are you able to follow them? yes Did you receive new medications? yes, Ertapenem 1 gram IV daily Have you filled the Rx's? yes Are you taking them as prescribed? yes Are you having difficulty eating or swallowing your pills? no Are you having any stomach upset, diarrhea or constipation? no How are you sleeping? fine Are you having any pain? no pain Do you have everything you need at home to care for yourself? yes Do you have Home Health? yes Called patient for initial Transitional Care Management Program call. Readmission risk unavailable. Reviewed d/c instructions and dx of; osteomyelitis, hyperglycemia, RA, HTN, Anxiety. Patient had PICC line placed while in patient. Medications reconciled with patient, EHR, and d/c list. Reviewed purpose and side effects of new medication with patient. Patient states she is feeling good. She is wearing her boot as ordered and ambulating well. Patient denies any falls. Patient denies any pain, notes 'just a little burning' on top of right foot, she believes is the area of incision. Patient states her home health nurse will be out again on 11/12 and change the dressing. Patient denies any discharge/drainage visible on or around area. Patient notes that since she can't drive her daughter will be helping her to and from appointments. Patient is on day 3 of IV ATB, noting today was her first independent administration. Patient denies any questions or concerns. Denies any pain or discomfort at PICC insertion site. Patient states she her last BM was this am, denying any issues/concerns. Patient states she goes 'pee' all the time, adding that it is normal for her d/t medication. Patient is eating and drinking okay. Reviewed the following appointments with patient; TCM follow up with Vidhi Oro 11/14/[address] Bryson 11/14/23 at 1515. Patient denies any further questions or concerns. CN explained TCM program and provided CN contact number. Communication Events Date: November 12, 2023 Method: Phone call Type: Outbound Duration (min): 9 Outcome: Case discussion Contact Type: perinatal coordinator Contact Name: Harrison Diaz Notes: TCM#1- see tcm note. Created By: Harrison Diaz [facility] Consultation Noteon 11-09-19 Consultation Note [id number] 72#1.00TIFF [facility] ECG 12-Leadon 11-09-2023 ECG 12-Lead [id number] 33#1.00TIFF [facility] Operative Reporton Operative Report [id number] 6D#1.00TIFF [facility] Chan 11-08-2023 L Specimen: [id number] Received: 11/09/23 [facility] Num: [id number] Spec Type: Surgical Subm Dr: Sunshine Bryson,DPM, MS Tissues: A Bone Biopsy/Currettings (RT CUBOID BONE) B Bone Biopsy/Currettings (RT FOURTH METATARSAL) C Bone Biopsy/Currettings (RT FIFTGH METATARSAL) Procedures: HE/6, Gross/Micro L5/3, Decalcification/3 Age/ Patient Sex Location Account Attending Physician Jarett Kebede 58/F LABELL [id number] Sunshine Bryson DPM, MS SPEC NUM: [id number] RECD: 11/09/23 STATUS: LUIS E ANDREW NUM: [id number] MIMI: 11/08/[address] [facility] [address]: Sunshine Bryson DPM, MS ENTERED: 11/09/23 [facility] DR: Marina,Lab SPEC TYPE: Surgical DEPT: ROMÁN YOUNG ORDERED: HE/6, Gross/Micro L5/3, Decalcification/3 ORDERED: HE/6, Gross/Micro L5/3, Decalcification/3 Pathological Diagnosis A. Right cuboid bone, biopsy: - Chronic, fibrosing osteomyelitis. - Accompanying periosteal and soft tissue showing patchy chronic inflammation. - Acute osteomyelitis not identified. B. Right fourth metatarsal bone, biopsy: - Histologically viable chondro-osseous tissue featuring foci of mild, chronic osteomyelitis, juxta osseous chronic inflammation and focal hemosiderin deposition. - Acute osteomyelitis not identified. C. Right fifth metatarsal bone, biopsy: - Fragmented chondro-osseous tissue featuring foci of acute and chronic osteomyelitis. - Accompanying fibrino-inflammator y exudate and scant granulation tissue, consistent with origin from the bed of a wound or ulcer. Gross Description Received are 3 formalin filled containers each labeled with the patient's name and specific specimen site. A. Further labeled right cuboid bone biopsy , consisting of 3 irregularly-shaped fragments of bone altogether measuring 1.1 x 0.5 x 0.3 cm, entirely submitted in A1 following decalcification. Specimen: [id number] Received: 11/09/23 Status: LUIS E Katzjin Num: [id number] Spec Type: Surgical Subm Dr: Sunshine Bryson DPM, MS Tissues: A Bone Biopsy/Currettings (RT CUBOID BONE) B Bone Biopsy/Currettings (RT FOURTH METATARSAL) C Bone Biopsy/Currettings (RT FIFTGH METATARSAL) Procedures: 6, Gross/Micro L5/3, Decalcification/3 Patient: Jarett Kebede [id number] (Continued) Specimen: [id number] Received: 11/09/23 (Continued) Gross Description (Continued) Signed (signatur e on file) Sukhjinder Mcfadden MD 11/12/23 1707 Specimen: [id number] Received: 11/09/23 Status: LUIS E Andrew Num: [id number] Spec Type: Surgical Subm Dr: Sunshine Bryson,DPChristina, MS Tissues: A Bone Biopsy/Currettings (RT CUBOID BONE) B Bone Biopsy/Currettings (RT FOURTH METATARSAL) C Bone Biopsy/Currettings (RT FIFTGH METATARSAL) Procedures: , Gross/Micro L5/3, Decalcification/3 Patient: BaronJarett Berrios [id number] (Continued) Specimen: [id number] Received: 11/09/23 (Continued) Gross Description (Continued) B. Further labeled right fourth metatarsal bone biopsy are 2 dinero-white irregularly shaped fragments of bone altogether measuring 0.8 x 0.4 x 0.3 cm, entirely submitted in B1 following decalcification. C. Further labeled right fifth metatarsal are 2 dinero-white irregularly-shaped fragments of bone altogether measuring 0.7 x 0.4 x 0.2 cm, entirely submitted in C1 following decalcification. Clinical history: Osteomyelitis right ankle and foot CPT Codes 59305c7, 40763k7 Specimen: [id number] Received: 11/09/23 Status: LUIS E Andrew Num: [id number] Spec Type: Surgical Subm Dr: Sunshine Bryson,NICOLASA, MS Tissues: A Bone Biopsy/Currettings (RT CUBOID BONE) B Bone Biopsy/Currettings (RT FOURTH METATARSAL) C Bone Biopsy/Currettings (RT FIFTGH METATARSAL) Procedures: HE/6, Gross/Micro L5/3, Decalcification/3 Patient: Jarett Kebede [id number] (Continued) Signed (signatur e on file) Sukhjinder Mcfadden MD 11/12/231706 Normal [facility] Consultation Noteon 11-07-19 Consultation Note [id number] 95#1.00TIFF [facility] Consultation Noteon 10-11-19 Consultation Note [id number] 93#1.00TIFF Normal [facility] Consultation Noteon 10-05-19 Consultation Note [id number] FF#1.00TIFF [facility] RAD - MRI Reporton 4 RAD - MRI Report [id number] EC#1.00TIFF Normal [facility] RAD - MISCon 07-13-2023 RAD - MISC [id number] 6D#1.00TIFF Normal [facility] RAD - CT Reporton 06-12-2023 RAD - CT Report [id number] 8#1.00TIFF Normal [facility] Family Medicine Office/Clini c Noteon 05-31-2023 Family Medicine Office/Clinic Note HPI Staff Jarett is a 57 year old female presenting to [facility] Establish Care: History: Any previous diagnosis: HTN, [...] of Present Illness pt presents today to [facility], needs mammogram order Review of Systems PHQ [...] anxiety, # 40 cap(s), Refills(s) 2, Pharmacy: [facility]/pharmacy #[id number], 157, cm, 05/30/23 17:31:00 EST, Height/Length Dosing hydrOXYzine, 25 mg = 1 cap(s), Oral, QID, PRN for anxiety, # 40 cap(s), Refills(s) 2, Pharmacy: 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 Medications atenolol 50 mg Tab, 50 mg, Oral, Daily, 1 refills hydrochlorothiazide -triamterene 25 mg-37.5 mg Tab, 1 tab(s), Oral, [...] of female genital organ: Mother. Stroke: Father. Normal [facility] Comment on above: Result Comment: Elec tronically Signed By: Ann Glasgow\.br\Date and Time Signed: 05/31/23 15:38 EST Formson 05-31-2023 Forms [id number] C#1.00TIFF Normal [facility] CBC AUTO DIFFon 08-17-2022 BASO # 0.1 103/ul Normal 0.0-0.1 [facility] Comment on above: Performed By: #### C BC #### [facility] [address] [place] [address] Dr. Rox Us Basophils/100 WBC (Bld) 0.4 % Normal 0.2-2.0 [facility] Comment on above: Performed By: #### C BC #### [facility] [address] [place] [address] Dr. Rox Us EO # 0.2 103/ul Normal 0.0-0.7 [facility] Comment on above: Performed By: #### C BC #### [facility] [address] [place] [address] Dr. Rox Us Eosinophils/100 WBC (Bld) 1.5 % Normal 0.9-7.0 [facility] Comment on above: Performed By: #### C BC #### [facility] [address] [place] [address] Dr. Rox Us Erythrocyte distribution width (RBC) [Ratio] 15.4 % Critically high 11.0-15.0 [facility] Comment on above: Performed By: #### C BC #### [facility] [address] [place] [address] Dr. Rox Us Hematocrit (Bld) [Volume fraction] 51.3 % Critically high 36.0-48.0 [facility] Comment on above: Performed By: #### C BC #### [facility] [address] [place] [address] Dr. Rox Us Hemoglobin (Bld) [Mass/Vol] 15.7 g/dL Normal 12.0-16.0 [facility] Comment on above: Performed By: #### C BC #### [facility] [address] [address] [address] Rox Us IG # 0.07 10e3/ul Critically high 0.00-0.03 [facility] Comment on above: Performed By: #### C BC #### [facility] [address] [place] [address] Dr. Rox sU IG % 0.6 % Critically high 0.0-0.5 [facility] Comment on above: Performed By: #### C BC #### [facility] [address] [address] [address] Rox Us LYMPH # 1.8 103/ul Normal 1.2-3.8 [facility] Comment on above: Performed By: #### C BC #### [facility] [address] [place] [address] Dr. Rox Us Lymphocytes/100 WBC (Bld) 15.2 % Critically low 20.5-60.0 [facility] Comment on above: Performed By: #### C BC #### [facility] [address] [place] [address] Dr. Rox Us MANUAL DIFF REQ NO Normal [facility] Comment on above: Performed By: #### C BC #### [facility] [address] [address] [address] Rox Us MCH (RBC) [Entitic mass] 28.6 pg Normal 26.7-34.0 [facility] Comment on above: Performed By: #### C BC #### [facility] [address] [place] [address] Dr. Rox Us MCHC (RBC) [Mass/Vol] 30.6 g/dL Normal 29.9-35.2 [facility] Comment on above: Performed By: #### C BC #### [facility] [address] [place] [address] Dr. Rox sU MCV (RBC) [Entitic vol] 93.6 fL Normal 81.0-99.0 [facility] Comment on above: Performed By: #### C BC #### [facility] [address] [place] [address] Dr. Rox Us MONO # 0.8 103/ul Normal 0.3-0.8 [facility] Comment on above: Performed By: #### C BC #### [facility] [address] [place] [address] Dr. Rox Us Monocytes/100 WBC (Bld) 7.2 % Normal 1.7-12.0 [facility] Comment on above: Performed By: #### C BC #### [facility] [address] [place] [address] Dr. Rox Us NEUT # 8.8 103/ul Critically high 1.4-6.5 [facility] Comment on above: Performed By: #### C BC #### [facility] [address] [place] [address] Dr. Rox Us Neutrophils/100 WBC (Bld) 75.1 % Critically high 43.0-75.0 [facility] Comment on above: Performed By: #### C BC #### [facility] [address] [place] [address] Dr. Rox Us Platelet mean volume (Bld) [Entitic vol] 9.5 fL Normal 9.5-13.5 [facility] Comment on above: Performed By: #### C BC #### [facility] [address] [place] [address] Dr. Rox Us PLT 302 103/ul Normal 150-450 [facility] Comment on above: Performed By: #### C BC #### [facility] [address] [place] [address] Dr. Rox Us RBC 5.48 106/ul Critically high 4.20-5.40 [facility] Comment on above: Performed By: #### C BC #### [facility] [address] [place] [address] Dr. Rox Us WBC 11.7 103/ul Critically high 4.0-11.0 [facility] Comment on above: Performed By: #### C BC #### [facility] [address] [place] [address] Dr. Rox Us PROF 14(COMP METB)on 023 Albumin [Mass/Vol] 3.1 g/dL Critically low 3.4-5.[address] [facility] Comment on above: Performed By: #### C MP #### [facility] [address] [place] [address] Dr. Rox Us Albumin/Globulin [Mass ratio] 0.7 {ratio} Normal [facility] Comment on above: Performed By: #### C MP #### [facility] [address] [place] [address] Dr. Rox Us ALP [Catalytic activity/Vol] 87 U/L Normal 46-116 [facility] Comment on above: Performed By: #### C MP #### [facility] [address] [place] [address] Dr. Rox Us ALT [Catalytic activity/Vol] 24 U/L Normal 14-59 [facility] Comment on above: Performed By: #### C MP #### [facility] [address] [place] [address] Dr. Rox Us Anion gap [Moles/Vol] 8.5 mmol/L Normal [facility] Comment on above: Performed By: #### C MP #### [facility] [address] [place] [address] Dr. Rox Us AST [Catalytic activity/Vol] 14 U/L Critically low 15-37 [facility] Comment on above: Performed By: #### C MP #### [facility] [address] [place] [address] Dr. Rox Us Bilirubin [Mass/Vol] 0.3 mg/dL Normal 0.2-1.0 [facility] Comment on above: Performed By: #### C MP #### [facility] [address] [address] [address] Rox Us Calcium [Mass/Vol] 9.3 mg/dL Normal 8.5-10.1 [facility] Comment on above: Performed By: #### C MP #### [facility] [address] [address] [address] Rox Us Chloride [Moles/Vol] 102 mmol/L Normal 98-107 [facility] Comment on above: Performed By: #### C MP #### [facility] [address] [address] [address] Rox Us CO2 [Moles/Vol] 34.6 mmol/L Critically high 21.0-32.0 [facility] Comment on above: Performed By: #### C MP #### [facility] [address] [address] [address] Rox Us Creatinine [Mass/Vol] 0.76 mg/dL Normal 0.55-1.02 [facility] Comment on above: Performed By: #### C MP #### [facility] [address] [address] [address] Rox Us EGFR-AF EMIRATI >60 Normal >=60 [facility] Comment on above: Performed By: #### C MP #### [facility] [address] [address] [address] Rox Us EGFR-NON AF EMIRATI >60 Normal >=60 [facility] Comment on above: Performed By: #### C MP #### [facility] [address] [address] [address] Rox Us Globulin (S) [Mass/Vol] 4.3 g/dL Normal [facility] Comment on above: Performed By: #### C MP #### [facility] [address] [address] [address] Rox Us Glucose [Mass/Vol] 125 mg/dL Critically high 74-106 [facility] Comment on above: Performed By: #### C MP #### [facility] [address] [address] [address] Rox Us Potassium [Moles/Vol] 4.1 mmol/L Normal 3.5-5.1 [facility] Comment on above: Performed By: #### C MP #### [facility] [address] [address] [address] Rox Us Protein [Mass/Vol] 7.4 g/dL Normal 6.4-8.2 [facility] Comment on above: Performed By: #### C MP #### [facility] [address] [address] [address] Rox Us Sodium [Moles/Vol] 141 mmol/L Normal 136-145 [facility] Comment on above: Performed By: #### C MP #### [facility] [address] [address] [address] Rox Us Urea nitrogen [Mass/Vol] 21.0 mg/dL Critically high 7.0-18.0 [facility] Comment on above: Performed By: #### C MP #### [facility] [address] [address] [address] Rox Us Urea nitrogen/Creatinine [Mass ratio] 27.6 mg/mg Normal [facility] Comment on above: Performed By: #### C MP #### [facility] [address] [address] [address] Rox Us SED RATE [facility] 2022 SED RATE 52 mm/hr Critically high <=30 [facility] Comment on above: Performed By: #### S EDR #### [facility] [address] [address] [address] Rox Us Albumin [Mass/volume] in Ser um or PlasmaOrdered By: Juan Carlos Baldwin on 01-12-2022 Albumin [Mass/Vol] 3.2 g/dL 3.2-5.5 [facility] Basophils Auto (Bld) [#/Vol] Ordered By: Juan Carlos Baldwin on 01-12-2022 Basophils (Bld) [#/Vol] 0.1 10*3/uL 0.0-0.2 [facility] Basophils/100 WBC Auto (Bld) Ordered By: Juan Carlos Baldwin on 01-12-2022 Basophils/100 WBC (Bld) 0.5 % [facility] Blood hemoglobin measurement (mass/volume)Ordered By: Juan Carlos Baldwin on 01-12-2022 Hemoglobin (Bld) [Mass/Vol] 13.8 g/dL 11.8-15.4 [facility] Blood leukocytes automated c ount (number/volume)Ordered By: Juan Carlos Baldwin on 01-12-2022 WBC (Bld) [#/Vol] 9.7 10*3/uL 4.5-11.0 [facility] Creatinine and Glomerular fi ltration rate.predicted panel (S/P/Bld)Ordered By: Juan Carlos Baldwin on 01-12-2022 Creatinine [Mass/Vol] 0.84 mg/dL 0.44-1.03 [facility] Eosinophils Auto (Bld) [#/Vo l]Ordered By: Juan Carlos Baldwin on 01-12-2022 Eosinophils (Bld) [#/Vol] 0.2 10*3/uL 0.0-0.45 [facility] Eosinophils/100 WBC Auto (Bl d)Ordered By: Juan Carlos Baldwin on 01-12-2022 Eosinophils/100 WBC (Bld) 1.8 % [facility] Erythrocyte distribution wid th Auto (RBC) [Ratio]Ordered By: Juan Carlos Baldwin on 01-12-2022 Erythrocyte distribution width (RBC) [Ratio] 17.4 % 11.9-15.3 [facility] Erythrocyte sedimentation ra te by Photometric methodOrdered By: Juan Carlos Baldwin on 01-12-2022 ESR Photometric method (Bld) [Velocity] 47 mm/hr 0-29 [facility] Estimated glomerular filtrat ion rate (GFR) non- AmericanOrdered By: Juan Carlos Baldwin on 01-12-2022 GFR/1.73 sq M.predicted among non-blacks MDRD (S/P/Bld) [Vol rate/Area] > 60 mL/Min [facility] Globulin Calc (S) [Mass/Vol] Ordered By: Juan Carlos Baldwin on 01-12-2022 Globulin (S) [Mass/Vol] 3.7 g/dL [facility] Hematocrit Auto (Bld) [Volum e fraction]Ordered By: Juan Carlos Baldwin on 01-12-2022 Hematocrit (Bld) [Volume fraction] 42.7 % 34.0-46.4 [facility] Laboratory - Hematology and Cell countsOrdered By: Juan Carlos Baldwin on 01-12-2022 Nucleated RBC/100 WBC (Bld) [Ratio] 0.1 % 0-0.5 [facility] Lymphocytes Auto (Bld) [#/Vo l]Ordered By: Juan Carlos Baldwin on 01-12-2022 Lymphocytes (Bld) [#/Vol] 1.8 10*3/uL 1.00-4.8 [facility] Lymphocytes/100 WBC Auto (Bl d)Ordered By: Juan Carlos Baldwin on 01-12-2022 Lymphocytes/100 WBC (Bld) 18.3 % [facility] MCH Auto (RBC) [Entitic mass ]Ordered By: Juan Carlos Baldwin on 01-12-2022 MCH (RBC) [Entitic mass] 27.4 pg 24.7-34.3 [facility] MCHC Auto (RBC) [Mass/Vol]Or dered By: Juan Carlos Baldwin on 01-12-2022 MCHC (RBC) [Mass/Vol] 32.4 g/dL 32.0-35.0 [facility] MCV Auto (RBC) [Entitic vol] Ordered By: Juan Carlos Baldwin on 01-12-2022 MCV (RBC) [Entitic vol] 84.5 fL 80-100 [facility] Monocytes Auto (Bld) [#/Vol] Ordered By: Juan Carlos Baldwin on 01-12-2022 Monocytes (Bld) [#/Vol] 0.6 10*3/uL 0.0-0.8 [facility] Monocytes/100 WBC Auto (Bld) Ordered By: Juan Carlos Baldwin on 01-12-2022 Monocytes/100 WBC (Bld) 6.5 % [facility] Neutrophils Auto (Bld) [#/Vo l]Ordered By: Juan Carlos Baldwin on 01-12-2022 Neutrophils (Bld) [#/Vol] 7.1 10*3/uL 1.8-7.7 [facility] Neutrophils/100 WBC Auto (Bl d)Ordered By: Juan Carlos Baldwin on 01-12-2022 Neutrophils/100 WBC (Bld) 72.9 % [facility] No Panel InformationOrdered By: Juan Carlos Baldwin on 01-12-2022 Estimated GFR () > 60 mL/Min [facility] Comment on above: GFR estimated refere nce range: According to KDOQI guidelines, <60 ml/min/1.73m2 is sufficient to diagnose a patient with chronic kidney disease. Pharmacy Creatinine Clearance (Chem N/A [facility] Platelet mean volume Auto (B ld) [Entitic vol]Ordered By: Juan Carlos Baldwin on 01-12-2022 Platelet mean volume (Bld) [Entitic vol] 8.1 fL 6.3-10.7 [facility] Platelets Auto (Bld) [#/Vol] Ordered By: Juan Carlos Baldwin on 01-12-2022 Platelets (Bld) [#/Vol] 341 10*3/uL 150-450 [facility] Protein [Mass/volume] in Ser um or PlasmaOrdered By: Juan Carlos Baldwin on 01-12-2022 Protein [Mass/Vol] 6.9 g/dL 6.1-7.9 [facility] RBC Auto (Bld) [#/Vol]Ordere d By: Juan Carlos Baldwin on 01-12-2022 RBC (Bld) [#/Vol] 5.06 10*6/uL 3.60-5.00 [facility] Serum or plasma alanine oviedo otransferase measurement without P-5'-P (enzymatic activiOrdered By: Juan Carlos Baldwin on 01-12-2022 ALT No additional P-5'-P [Catalytic activity/Vol] 15 U/L 10-60 [facility] Serum or plasma albumin/glob ulin mass ratioOrdered By: Juan Carlos Baldwin on 01-12-2022 Albumin/Globulin [Mass ratio] 0.9 {ratio} [facility] Serum or plasma alkaline breanna sphatase measurement (enzymatic activity/volume)Ordered By: Juan Carlos Baldwin on 01-12-2022 ALP [Catalytic activity/Vol] 76 U/L 32-92 [facility] Serum or plasma aspartate am inotransferase measurement (enzymatic activity/volume)Ordered By: Juan Carlos Baldwin on 01-12-2022 AST [Catalytic activity/Vol] 16 U/L 10-42 [facility] Serum or plasma calcium wayne urement (mass/volume)Ordered By: Juan Carlos Baldwin on 01-12-2022 Calcium [Mass/Vol] 9.6 mg/dL 8.2-10.2 [facility] Serum or plasma chloride arcadio surement (moles/volume)Ordered By: Juan Carlos Baldwin on 01-12-2022 Chloride [Moles/Vol] 98 mmol/L 95-114 [facility] Serum or plasma glucose wayne urement (mass/volume)Ordered By: Juan Carlos Baldwin on 01-12-2022 Glucose [Mass/Vol] 115 mg/dL 70-100 [facility] Comment on above: ADA recommended refe rence range Random Glucose Reference Range is dependent on time and content of last meal. Glucose of more than 200 mg/dL in a nonstressed, ambulatory subject supports the diagnosis of Diabetes Mellitus. Serum or plasma potassium me asurement (moles/volume)Ordered By: Juan Carlos Baldwin on 01-12-2022 Potassium [Moles/Vol] 5.0 mmol/L 3.5-5.1 [facility] Serum or plasma sodium measu rement (moles/volume)Ordered By: Juan Carlos Baldwin on 01-12-2022 Sodium [Moles/Vol] 140 mmol/L 136-146 [facility] Serum or plasma total biliru bin measurement (mass/volume)Ordered By: Juan Carlos Baldwin on 01-12-2022 Bilirubin [Mass/Vol] 0.4 mg/dL 0.3-1.2 [facility] Serum or plasma total carbon dioxide measurement (moles/volume)Ordered By: Juan Carlos Baldwin on 01-12-2022 CO2 [Moles/Vol] 29.4 mmol/L 22.0-30.0 [facility] Serum or plasma urea nitroge n measurement (mass/volume)Ordered By: Juan Carlos Baldwin on 01-12-2022 Urea nitrogen [Mass/Vol] 17 mg/dL 9-23 [facility] BASIC METABOLIC PANELon 07-17 Calcium [Mass/Vol] 7.7 mg/dL Low 8.6-10.3 [facility] Comment on above: Order Comment: Yes: Add to Previous draw if able Performed By: #### 0 0071 ####[facility] [place] [address], [facility] Chloride [Moles/Vol] 104 mmol/L Normal 98-107 [facility] Comment on above: Order Comment: Yes: Add to Previous draw if able Performed By: #### 0 0071 ####[facility] [place] [address], [place] CO2 [Moles/Vol] 31 mmol/L Normal 21-31 [facility] Comment on above: Order Comment: Yes: Add to Previous draw if able Performed By: #### 0 0071 ####[facility] [place] [address], [place] Creatinine [Mass/Vol] 0.62 mg/dL Normal 0.60-1.20 [facility] Comment on above: Order Comment: Yes: Add to Previous draw if able Performed By: #### 0 0071 ####[facility] [place] [address], [place] GFR/1.73 sq M predicted among blacks MDRD (S/P/Bld) [Vol rate/Area] mL/min/{1.73_m2} Normal >60 [facility] Comment on above: Order Comment: Yes: Add to Previous draw if able Performed By: #### 0 0071 ####[facility] [place] [address], [place] GFR/1.73 sq M predicted among non-blacks MDRD (S/P/Bld) [Vol rate/Area] mL/min/{1.73_m2} Normal >60 [facility] Comment on above: Order Comment: Yes: Add to Previous draw if able Performed By: #### 0 0071 ####[facility] [place] [address], [facility] Glucose [Mass/Vol] 100 mg/dL Normal 70-100 [facility] Comment on above: Order Comment: Yes: Add to Previous draw if able Performed By: #### 0 0071 ####[facility] [place] [address], [facility] Potassium [Moles/Vol] 4.0 mmol/L Normal 3.5-5.1 [facility] Comment on above: Order Comment: Yes: Add to Previous draw if able Performed By: #### 0 0071 ####[facility] [place] [address], [facility] Sodium [Moles/Vol] 140 mmol/L Normal 136-145 [facility] Comment on above: Order Comment: Yes: Add to Previous draw if able Performed By: #### 0 0071 ####[facility] Urea nitrogen [Mass/Vol] 15 mg/dL Normal 7-25 [facility] Comment on above: Order Comment: Yes: Add to Previous draw if able Performed By: #### 0 0071 ####[facility] CBC W/DIFFon 08-07-2020 ABS BASOPHILS 0.0 10*3/uL Normal 0.0-0.2 [facility] Comment on above: Order Comment: No: D o not add to previous draw Performed By: #### 5 0103 #### [facility] [address] [place] [address], [facility] ABS NEUTROPHILS 9.7 10*3/uL High 1.6-7.6 [facility] Comment on above: Order Comment: No: D o not add to previous draw Performed By: #### 5 102 #### [facility] [address] [place] [address], [facility] Basophils/100 WBC (Bld) 0.0 % Normal 0.0-1.0 [facility] Comment on above: Order Comment: No: D o not add to previous draw Performed By: #### 5 0103 #### [facility] [address] [place] [address], [facility] Eosinophils (Bld) [#/Vol] 0.3 10*3/uL Normal 0.0-0.5 [facility] Comment on above: Order Comment: No: D o not add to previous draw Performed By: #### 5 0103 #### [facility] [address] [place] [id number], [facility] Eosinophils/100 WBC (Bld) 2.7 % Normal 0.0-6.0 [facility] Comment on above: Order Comment: No: D o not add to previous draw Performed By: #### 5 0103 #### [facility] [address] [place] [address], [facility] Erythrocyte distribution width (RBC) [Ratio] 14.3 % Normal 11.5-15.0 [facility] Comment on above: Order Comment: No: D o not add to previous draw Performed By: #### 5 0103 #### [facility] [address] [place] [id number], [facility] Hematocrit (Bld) [Volume fraction] 35.7 % Low 36.0-45.0 [facility] Comment on above: Order Comment: No: D o not add to previous draw Performed By: #### 5 0103 #### [facility] [address] [place] [address], [facility] Hemoglobin (Bld) [Mass/Vol] 10.9 g/dL Low 12.0-15.0 [facility] Comment on above: Order Comment: No: D o not add to previous draw Performed By: #### 5 0103 #### [facility] [address] [place] [address], [facility] Lymphocytes (Bld) [#/Vol] 0.7 10*3/uL Low 1.2-4.0 [facility] Comment on above: Order Comment: No: D o not add to previous draw Performed By: #### 5 0103 #### [facility] [address] [place] [address], [facility] Lymphocytes/100 WBC (Bld) 6.3 % Low 20.0-45.0 [facility] Comment on above: Order Comment: No: D o not add to previous draw Performed By: #### 5 0103 #### [facility] [address] [facility] [place] [address], [facility] MCH (RBC) [Entitic mass] 27.3 pg Normal 27.0-33.0 [facility] Comment on above: Order Comment: No: D o not add to previous draw Performed By: #### 5 0103 #### [facility] [address] MCHC (RBC) [Mass/Vol] 30.5 g/dL Low 32.0-35.0 [facility] Comment on above: Order Comment: No: D o not add to previous draw Performed By: #### 5 0103 #### [facility] [address] [place] [address], [facility] MCV (RBC) [Entitic vol] 89.5 fL Normal 82.0-98.0 [facility] Comment on above: Order Comment: No: D o not add to previous draw Performed By: #### 5 0103 #### [facility] [address] [place] [address], [facility] Monocytes (Bld) [#/Vol] 0.8 10*3/uL Normal 0.1-1.0 [facility] Comment on above: Order Comment: No: D o not add to previous draw Performed By: #### 5 0103 #### [facility] [address] [place] [address], [facility] MONOS 7.2 % Normal 5.0-12.0 [facility] Comment on above: Order Comment: No: D o not add to previous draw Performed By: #### 5 0103 #### [facility] [address] [place] [address], [facility] MYELOS 0.9 % High 0.0-0.0 [facility] Comment on above: Order Comment: No: D o not add to previous draw Performed By: #### 5 0103 #### [facility] [address] [place] [address], [facility] Neutrophils/100 WBC (Bld) 82.9 % High 40.0-72.0 [facility] Comment on above: Order Comment: No: D o not add to previous draw Performed By: #### 5 0103 #### [facility] [address] [place] [address], [facility] Nucleated RBC/100 WBC (Bld) [Ratio] 0 % Normal 0-0 [facility] Comment on above: Order Comment: No: D o not add to previous draw Performed By: #### 5 0103 #### [facility] [address] [facility] [place] [address], [facility] PLAT CNT 388 10*3/uL Normal 150-400 [facility] Comment on above: Order Comment: No: D o not add to previous draw Performed By: #### 5 0103 #### [facility] [address] [place] [address], [facility] RBC (Bld) [#/Vol] 3.99 10*6/uL Normal 3.80-5.00 [facility] Comment on above: Order Comment: No: D o not add to previous draw Performed By: #### 5 0103 #### [facility] [address] [place] [address], [place] WBC (Bld) [#/Vol] 11.71 10*3/uL High 4.00-10.60 [facility] Comment on above: Order Comment: No: D o not add to previous draw Performed By: #### 5 0103 #### [facility] [address] [place] [address], [facility] BASIC METABOLIC PANELon - Calcium [Mass/Vol] 7.8 mg/dL Low 8.6-10.3 [facility] Comment on above: Order Comment: No: D o not add to previous draw Performed By: #### 4 1000, 73501, 96460 ####[facility] [place] [address], [facility] Chloride [Moles/Vol] 102 mmol/L Normal 98-107 [facility] Comment on above: Order Comment: No: D o not add to previous draw Performed By: #### 4 1000, 35763, 02111 ####[facility] [place] [address], [facility] CO2 [Moles/Vol] 32 mmol/L High 21-31 [facility] Comment on above: Order Comment: No: D o not add to previous draw Performed By: #### 4 1000, 16542, 30134 ####[facility] [place] [address], [facility] Creatinine [Mass/Vol] 0.73 mg/dL Normal 0.60-1.20 [facility] Comment on above: Order Comment: No: D o not add to previous draw Performed By: #### 4 1000, 96230, 05007 ####[facility] [place] [address], [facility] GFR/1.73 sq M predicted among blacks MDRD (S/P/Bld) [Vol rate/Area] mL/min/{1.73_m2} Normal >60 [facility] Comment on above: Order Comment: No: D o not add to previous draw Performed By: #### 4 1000, 46817, 39229 ####[facility] [place] [address], [facility] GFR/1.73 sq M predicted among non-blacks MDRD (S/P/Bld) [Vol rate/Area] mL/min/{1.73_m2} Normal >60 [facility] Comment on above: Order Comment: No: D o not add to previous draw Performed By: #### 4 1000, 43016, 00335 ####[facility] [place] [address], [facility] Glucose [Mass/Vol] 95 mg/dL Normal 70-100 [facility] Comment on above: Order Comment: No: D o not add to previous draw Performed By: #### 4 1000, 81673, 76962 ####[place] [address] [facility] [place] [address], [facility] Potassium [Moles/Vol] 3.8 mmol/L Normal 3.5-5.1 [facility] Comment on above: Order Comment: No: D o not add to previous draw Performed By: #### 4 999, 65904, 01191 ####[place] [address] [place] [address], [facility] Sodium [Moles/Vol] 139 mmol/L Normal 136-145 [facility] Comment on above: Order Comment: No: D o not add to previous draw Performed By: #### 4 999, 55454, 51419 ####[place] [address] [place] [address], [facility] Urea nitrogen [Mass/Vol] 18 mg/dL Normal 7-25 [facility] Comment on above: Order Comment: No: D o not add to previous draw Performed By: #### 4 1000, 61203, 63520 ####[place] [address] [facility] [place] [address], [facility] CBC COMPLETE BLOOD COUNTon 0 - Erythrocyte distribution width (RBC) [Ratio] 14.3 % Normal 11.5-15.0 [facility] Comment on above: Order Comment: Yes: Add to Previous draw if able Performed By: #### 1 4 #### [facility] [address] [facility] [place] [address], [facility] Hematocrit (Bld) [Volume fraction] 36.8 % Normal 36.0-45.0 [facility] Comment on above: Order Comment: Yes: Add to Previous draw if able Performed By: #### 1 4 #### [facility] [address] [place] [address], [facility] Hemoglobin (Bld) [Mass/Vol] 11.2 g/dL Low 12.0-15.0 [facility] Comment on above: Order Comment: Yes: Add to Previous draw if able Performed By: #### 1 4 #### [facility] [address] [place] [address], [facility] MCH (RBC) [Entitic mass] 27.3 pg Normal 27.0-33.0 [facility] Comment on above: Order Comment: Yes: Add to Previous draw if able Performed By: #### 1 4 #### [facility] [address] [place] [address], [facility] MCHC (RBC) [Mass/Vol] 30.4 g/dL Low 32.0-35.0 [facility] Comment on above: Order Comment: Yes: Add to Previous draw if able Performed By: #### 1 4 #### [facility] [address] [place] [address], [facility] MCV (RBC) [Entitic vol] 89.5 fL Normal 82.0-98.0 [facility] Comment on above: Order Comment: Yes: Add to Previous draw if able Performed By: #### 1 0204 #### [facility] [address] [place] [address], [facility] Nucleated RBC/100 WBC (Bld) [Ratio] 0 % Normal 0-0 [facility] Comment on above: Order Comment: Yes: Add to Previous draw if able Performed By: #### 1 0204 #### [facility] [address] [place] [address], [facility] PLAT CNT 405 10*3/uL High 150-400 [facility] Comment on above: Order Comment: Yes: Add to Previous draw if able Performed By: #### 1 0204 #### [facility] [address] [place] [address], [facility] RBC (Bld) [#/Vol] 4.11 10*6/uL Normal 3.80-5.00 [facility] Comment on above: Order Comment: Yes: Add to Previous draw if able Performed By: #### 1 0204 #### [facility] [address] [place] [id number], [facility] WBC (Bld) [#/Vol] 14.15 10*3/uL High 4.00-10.60 [facility] Comment on above: Order Comment: Yes: Add to Previous draw if able Performed By: #### 1 0204 #### [facility] [address] MAGNESIUM BLOODon 08-06-2020 Magnesium [Mass/Vol] 2.3 mg/dL Normal 1.9-2.7 [facility] Comment on above: Performed By: #### 4 999, 19791, 86635 ####[facility] [place] [address], [facility] PHOSPHORUS BLOODon Phosphate [Mass/Vol] 2.7 mg/dL Normal 2.5-5.0 [facility] Comment on above: Performed By: #### 4 999, 82256, 40016 ####[facility] [place] [address], [facility] BASIC METABOLIC PANELon 07-17 Calcium [Mass/Vol] 8.0 mg/dL Low 8.6-10.3 [facility] Comment on above: Order Comment: No: D o not add to previous draw Performed By: #### 0 0071 ####[facility] [place] [address], [facility] Chloride [Moles/Vol] 102 mmol/L Normal 98-107 [facility] Comment on above: Order Comment: No: D o not add to previous draw Performed By: #### 0 0071 ####[facility] [place] [address], [place] CO2 [Moles/Vol] 32 mmol/L High 21-31 [facility] Comment on above: Order Comment: No: D o not add to previous draw Performed By: #### 0 0071 ####[facility] [place] [address], [facility] Creatinine [Mass/Vol] 0.73 mg/dL Normal 0.60-1.20 [facility] Comment on above: Order Comment: No: D o not add to previous draw Performed By: #### 0 0071 ####[facility] [place] [address], [place] GFR/1.73 sq M predicted among blacks MDRD (S/P/Bld) [Vol rate/Area] mL/min/{1.73_m2} Normal >60 [facility] Comment on above: Order Comment: No: D o not add to previous draw Performed By: #### 0 0071 ####[facility] [place] [address], [place] GFR/1.73 sq M predicted among non-blacks MDRD (S/P/Bld) [Vol rate/Area] mL/min/{1.73_m2} Normal >60 [facility] Comment on above: Order Comment: No: D o not add to previous draw Performed By: #### 0 0071 ####[facility] [place] [address], [place] Glucose [Mass/Vol] 107 mg/dL High 70-100 [facility] Comment on above: Order Comment: No: D o not add to previous draw Performed By: #### 0 0071 ####[facility] [place] [address], [facility] Potassium [Moles/Vol] 4.0 mmol/L Normal 3.5-5.1 [facility] Comment on above: Order Comment: No: D o not add to previous draw Performed By: #### 0 0071 ####[facility] [facility].[address] Sodium [Moles/Vol] 138 mmol/L Normal 136-145 [facility] Comment on above: Order Comment: No: D o not add to previous draw Performed By: #### 0 0071 ####[facility] [facility].[address] Urea nitrogen [Mass/Vol] 20 mg/dL Normal 7-25 [facility] Comment on above: Order Comment: No: D o not add to previous draw Performed By: #### 0 0071 ####[facility] [facility].[address] CBC W/DIFFon 08-05-2020 ABS BASOPHILS 0.1 10*3/uL Normal 0.0-0.2 [facility] Comment on above: Order Comment: Yes: Add to Previous draw if able Performed By: #### 5 0103 ####[facility] [facility].[address] ABS IMM GRANS 0.2 10*3/uL Normal 0.0-0.2 [facility] Comment on above: Order Comment: Yes: Add to Previous draw if able Performed By: #### 5 0103 ####[facility] [place] [address].[address] ABS NEUTROPHILS 11.8 10*3/uL High 1.6-7.6 [facility] Comment on above: Order Comment: Yes: Add to Previous draw if able Performed By: #### 5 0103 ####[facility] [place] [address], [facility] Basophils/100 WBC (Bld) 0.4 % Normal 0.0-1.0 [facility] Comment on above: Order Comment: Yes: Add to Previous draw if able Performed By: #### 5 0103 ####[facility] [place] [address], [facility] Eosinophils (Bld) [#/Vol] 0.3 10*3/uL Normal 0.0-0.5 [facility] Comment on above: Order Comment: Yes: Add to Previous draw if able Performed By: #### 5 3 ####[facility] [place] [address], [facility] Eosinophils/100 WBC (Bld) 2.0 % Normal 0.0-6.0 [facility] Comment on above: Order Comment: Yes: Add to Previous draw if able Performed By: #### 5 3 ####[facility] Erythrocyte distribution width (RBC) [Ratio] 14.2 % Normal 11.5-15.0 [facility] Comment on above: Order Comment: Yes: Add to Previous draw if able Performed By: #### 5 3 ####[facility] [facility] [place] [address], [facility] Hematocrit (Bld) [Volume fraction] 36.9 % Normal 36.0-45.0 [facility] Comment on above: Order Comment: Yes: Add to Previous draw if able Performed By: #### 5 3 ####[facility] [place] [address], [facility] Hemoglobin (Bld) [Mass/Vol] 11.3 g/dL Low 12.0-15.0 [facility] Comment on above: Order Comment: Yes: Add to Previous draw if able Performed By: #### 5 3 ####[facility] IMMATURE GRANS 1.3 % High 0.0-1.0 [facility] Comment on above: Order Comment: Yes: Add to Previous draw if able Performed By: #### 5 3 ####[facility] [place] [address] Lymphocytes (Bld) [#/Vol] 0.8 10*3/uL Low 1.2-4.0 [facility] Comment on above: Order Comment: Yes: Add to Previous draw if able Performed By: #### 5 3 ####[facility] [place] [address] Lymphocytes/100 WBC (Bld) 5.7 % Low 20.0-45.0 [facility] Comment on above: Order Comment: Yes: Add to Previous draw if able Performed By: #### 5 3 ####[facility] MCH (RBC) [Entitic mass] 27.5 pg Normal 27.0-33.0 [facility] Comment on above: Order Comment: Yes: Add to Previous draw if able Performed By: #### 5 0103 ####[facility] [place] [address] MCHC (RBC) [Mass/Vol] 30.6 g/dL Low 32.0-35.0 [facility] Comment on above: Order Comment: Yes: Add to Previous draw if able Performed By: #### 5 0103 ####[facility] [place] [address] MCV (RBC) [Entitic vol] 89.8 fL Normal 82.0-98.0 [facility] Comment on above: Order Comment: Yes: Add to Previous draw if able Performed By: #### 5 0103 ####[facility] [facility].[address] Monocytes (Bld) [#/Vol] 1.1 10*3/uL High 0.1-1.0 [facility] Comment on above: Order Comment: Yes: Add to Previous draw if able Performed By: #### 0103 ####[facility] [facility].[address] MONOS 7.7 % Normal 5.0-12.0 [facility] Comment on above: Order Comment: Yes: Add to Previous draw if able Performed By: #### 0103 ####[facility] [place] [address].[address] Neutrophils/100 WBC (Bld) 82.9 % High 40.0-72.0 [facility] Comment on above: Order Comment: Yes: Add to Previous draw if able Performed By: #### 5 3 ####[facility] [facility].[address] Nucleated RBC/100 WBC (Bld) [Ratio] 0 % Normal 0-0 [facility] Comment on above: Order Comment: Yes: Add to Previous draw if able Performed By: #### 5 3 ####[facility] [facility] [place] [address], [facility] PLAT CNT 386 10*3/uL Normal 150-400 [facility] Comment on above: Order Comment: Yes: Add to Previous draw if able Performed By: #### 5 3 ####[facility] [facility] [place] [address], [facility] RBC (Bld) [#/Vol] 4.11 10*6/uL Normal 3.80-5.00 [facility] Comment on above: Order Comment: Yes: Add to Previous draw if able Performed By: #### 5 0103 ####[facility] [facility].[address] WBC (Bld) [#/Vol] 14.21 10*3/uL High 4.00-10.60 [facility] Comment on above: Order Comment: Yes: Add to Previous draw if able Performed By: #### 5 0103 ####[facility] [facility].[address] APTTon 08-04-2020 aPTT Coag (Bld) [Time] 39.7 s High 25.0-35.0 [facility] Comment on above: Order Comment: Yes: [...] PURPOSE. Performed By: #### 1 0204 #### [facility] [address] [facility] [place] [address], [facility] CBC W/DIFFon 08-04-2020 ABS BASOPHILS 0.0 10*3/uL Normal 0.0-0.2 [facility] Comment on above: Order Comment: Yes: Add to Previous draw if able Performed By: #### 1 0204 #### [facility] [address] [facility]. [address] ABS IMM GRANS 0.1 10*3/uL Normal 0.0-0.2 [facility] Comment on above: Order Comment: Yes: Add to Previous draw if able Performed By: #### 1 0204 #### [facility] [address] ABS NEUTROPHILS 13.1 10*3/uL High 1.6-7.6 [facility] Comment on above: Order Comment: Yes: Add to Previous draw if able Performed By: #### 1 0204 #### [facility] [address] [place] [address], [facility] Basophils/100 WBC (Bld) 0.1 % Normal 0.0-1.0 [facility] Comment on above: Order Comment: Yes: Add to Previous draw if able Performed By: #### 1 0204 #### [facility] [address] [place] [address], [facility] Eosinophils (Bld) [#/Vol] 0.2 10*3/uL Normal 0.0-0.5 [facility] Comment on above: Order Comment: Yes: Add to Previous draw if able Performed By: #### 1 0204 #### [facility] [address] [place] [address], [facility] Eosinophils/100 WBC (Bld) 1.1 % Normal 0.0-6.0 [facility] Comment on above: Order Comment: Yes: Add to Previous draw if able Performed By: #### 1 4 #### [facility] [address] [place] [address], [facility] Erythrocyte distribution width (RBC) [Ratio] 14.1 % Normal 11.5-15.0 [facility] Comment on above: Order Comment: Yes: Add to Previous draw if able Performed By: #### 1 0204 #### [facility] [address] [place] [id number], [facility] Hematocrit (Bld) [Volume fraction] 38.0 % Normal 36.0-45.0 [facility] Comment on above: Order Comment: Yes: Add to Previous draw if able Performed By: #### 1 0204 #### [facility] [address] [place] [address], [facility] Hemoglobin (Bld) [Mass/Vol] 11.7 g/dL Low 12.0-15.0 [facility] Comment on above: Order Comment: Yes: Add to Previous draw if able Performed By: #### 1 0204 #### [facility] [address] [place] [address], [facility] IMMATURE GRANS 0.8 % Normal 0.0-1.0 [facility] Comment on above: Order Comment: Yes: Add to Previous draw if able Performed By: #### 1 0204 #### [facility] [address] [place] [address], [facility] Lymphocytes (Bld) [#/Vol] 0.8 10*3/uL Low 1.2-4.0 [facility] Comment on above: Order Comment: Yes: Add to Previous draw if able Performed By: #### 1 0204 #### [facility] [address] [facility] [place] [address], [facility] Lymphocytes/100 WBC (Bld) 5.1 % Low 20.0-45.0 [facility] Comment on above: Order Comment: Yes: Add to Previous draw if able Performed By: #### 1 0204 #### [facility] [address] [place] [address], [facility] MCH (RBC) [Entitic mass] 27.5 pg Normal 27.0-33.0 [facility] Comment on above: Order Comment: Yes: Add to Previous draw if able Performed By: #### 1 0204 #### [facility] [address] [facility] [place] [address], [facility] MCHC (RBC) [Mass/Vol] 30.8 g/dL Low 32.0-35.0 [facility] Comment on above: Order Comment: Yes: Add to Previous draw if able Performed By: #### 1 0204 #### [facility] [address] [facility] [place] [address], [facility] MCV (RBC) [Entitic vol] 89.4 fL Normal 82.0-98.0 [facility] Comment on above: Order Comment: Yes: Add to Previous draw if able Performed By: #### 1 0204 #### [facility] [address] [facility] [place] [address], [facility] Monocytes (Bld) [#/Vol] 1.0 10*3/uL Normal 0.1-1.0 [facility] Comment on above: Order Comment: Yes: Add to Previous draw if able Performed By: #### 1 0204 #### [facility] [address] [place] [address], [facility] MONOS 6.5 % Normal 5.0-12.0 [facility] Comment on above: Order Comment: Yes: Add to Previous draw if able Performed By: #### 1 0204 #### [facility] [address] [facility] [place] [address], [facility] Neutrophils/100 WBC (Bld) 86.4 % High 40.0-72.0 [facility] Comment on above: Order Comment: Yes: Add to Previous draw if able Performed By: #### 1 0204 #### [facility] [address] [facility] [place] [address], [facility] Nucleated RBC/100 WBC (Bld) [Ratio] 0 % Normal 0-0 [facility] Comment on above: Order Comment: Yes: Add to Previous draw if able Performed By: #### 1 0204 #### [facility] [address] [place] [address], [facility] PLAT CNT 394 10*3/uL Normal 150-400 [facility] Comment on above: Order Comment: Yes: Add to Previous draw if able Performed By: #### 1 0204 #### [facility] [address] [place] [address], [facility] RBC (Bld) [#/Vol] 4.25 10*6/uL Normal 3.80-5.00 [facility] Comment on above: Order Comment: Yes: Add to Previous draw if able Performed By: #### 1 0204 #### [facility] [address] [place] [id number], [facility] WBC (Bld) [#/Vol] 15.11 10*3/uL High 4.00-10.60 [facility] Comment on above: Order Comment: Yes: Add to Previous draw if able Performed By: #### 1 0204 #### [address] DRAINAGE RETROPERITONEALo n 08-04-2020 CT DRAINAGE RETROPERITONEAL [facility] Department of Radiology [address] [place] [id number] Patient Name: JARETT KEBEDE : 1965 Sex: F Age: Race: White Pt. Location: [id number] Patient Status: I Ordered Date: 08/03/2020 6:05:00 [...] risks are acceptable. Consent was obtained. Timeout: [place] protocol timeout verification performed. PROCEDURE: Estimated blood [...] achievable Electronically signed: Jovani Gold. Transcribed by: [email or web address], User Resident: Electronically Signed by: JOVANI GOLD @ 08/04/2020 01:00 PM Normal [facility] Comment on above: Order Comment: Fluid Collection MRI CHEST W WO CONTRASTon MRI CHEST W WO CONTRAST [facility] Department of Radiology [address] [place] [id number] Patient Name: JARETT KEBEDE : 1965 Sex: F Age: Race: White Pt. Location: [id number] Patient Status: I Ordered Date: 08/02/2020 2:15:00 [...] appropriate Electronically signed: Fredy Bennett. Transcribed by: [email or web address], User Resident: Electronically Signed by: FREDY BENNETT @ 08/04/2020 07:38 PM Normal [facility] Comment on above: Order Comment: Yes: Add to Previous draw if able PROTHROMBIN TIMEon 1 INR Coag (PPP) [Relative time] 1.40 {INR} High 0.91-1.16 [facility] Comment on above: Order Comment: Yes: Add to Previous draw if able Result Comment: ACCC P RECOMMENDED INR FOR WARFARIN THERAPY ------- CONDITION INR PROPHYLAXIS OF VENOUS THROMBOSIS 2-3 (HIGH-RISK SURGERY) TREATMENT OF VENOUS THROMBOSIS 2-3 TREATMENT OF PULMONARY EMBOLISM 2-3 PREVENTION OF SYSTEMIC EMBOLISM: 2-3 ACUTE MYOCARDIAL INFARCTION TISSUE HEART VALVES VALVULAR HEART DISEASE ATRIAL FIBRILLATION RECURRENT SYSTEMIC EMBOLISM MECHANICAL HEART VALVE 2.5-3.5 FROM: ORAL ANTICOAGULANTS. MECHANISM OF ACTION, CLINICAL EFFECTIVENESS, AND OPTIMAL THERAPEUTIC RANGE. CHEST 1995;108:231S-246S. Performed By: #### 1 0204 #### [facility] [address] PT Coag (PPP) [Time] 17.2 s High 12.3-14.8 [facility] Comment on above: Order Comment: Yes: Add to Previous draw if able Result Comment: ALL RESULTS MUST BE INTERPRETED WITH RESPECT TO BLOOD DRAWING ARTIFACT OR DILUTION ERROR OF ANTICOAGULANT AT THE TIME OF SAMPLING. Performed By: #### 1 0204 #### [facility] [address] BASIC METABOLIC PANELon 07-16 Calcium [Mass/Vol] 7.9 mg/dL Low 8.6-10.3 [facility] Comment on above: Order Comment: No: D o not add to previous draw Performed By: #### 0 0071 ####[facility] [place] [address], [facility] Chloride [Moles/Vol] 101 mmol/L Normal 98-107 [facility] Comment on above: Order Comment: No: D o not add to previous draw Performed By: #### 0 0071 ####[facility] [place] [address], [facility] CO2 [Moles/Vol] 28 mmol/L Normal 21-31 [facility] Comment on above: Order Comment: No: D o not add to previous draw Performed By: #### 0 0071 ####[facility] [place] [address], [facility] Creatinine [Mass/Vol] 0.73 mg/dL Normal 0.60-1.20 [facility] Comment on above: Order Comment: No: D o not add to previous draw Performed By: #### 0 0071 ####[facility] [place] [address], [place] GFR/1.73 sq M predicted among blacks MDRD (S/P/Bld) [Vol rate/Area] mL/min/{1.73_m2} Normal >60 [facility] Comment on above: Order Comment: No: D o not add to previous draw Performed By: #### 0 0071 ####[facility] [place] [address], [facility] GFR/1.73 sq M predicted among non-blacks MDRD (S/P/Bld) [Vol rate/Area] mL/min/{1.73_m2} Normal >60 [facility] Comment on above: Order Comment: No: D o not add to previous draw Performed By: #### 0 0071 ####[facility] [place] [address], [place] Glucose [Mass/Vol] 103 mg/dL High 70-100 [facility] Comment on above: Order Comment: No: D o not add to previous draw Performed By: #### 0 0071 ####[facility] [place] [address], [place] Potassium [Moles/Vol] 3.9 mmol/L Normal 3.5-5.1 [facility] Comment on above: Order Comment: No: D o not add to previous draw Performed By: #### 0 0071 ####[facility] [place] [address], [place] Sodium [Moles/Vol] 136 mmol/L Normal 136-145 [facility] Comment on above: Order Comment: No: D o not add to previous draw Performed By: #### 0 0071 ####[facility] [place] [address], [facility] Urea nitrogen [Mass/Vol] 18 mg/dL Normal 7-25 [facility] Comment on above: Order Comment: No: D o not add to previous draw Performed By: #### 0 0071 ####[facility] [facility] CBC COMPLETE BLOOD COUNTon 0 - Erythrocyte distribution width (RBC) [Ratio] 13.9 % Normal 11.5-15.0 [facility] Comment on above: Order Comment: Yes: Add to Previous draw if able Performed By: #### 1 0204 #### [facility] [address] [place] [address], [facility] Hematocrit (Bld) [Volume fraction] 35.9 % Low 36.0-45.0 [facility] Comment on above: Order Comment: Yes: Add to Previous draw if able Performed By: #### 1 4 #### [facility] [address] [place] [address], [facility] Hemoglobin (Bld) [Mass/Vol] 11.1 g/dL Low 12.0-15.0 [facility] Comment on above: Order Comment: Yes: Add to Previous draw if able Performed By: #### 1 0204 #### [facility] [address] [place] [address], [facility] MCH (RBC) [Entitic mass] 27.5 pg Normal 27.0-33.0 [facility] Comment on above: Order Comment: Yes: Add to Previous draw if able Performed By: #### 1 4 #### [facility] [address] [place] [id number], [facility] MCHC (RBC) [Mass/Vol] 30.9 g/dL Low 32.0-35.0 [facility] Comment on above: Order Comment: Yes: Add to Previous draw if able Performed By: #### 1 0204 #### [facility] [address] [place] [address], [facility] MCV (RBC) [Entitic vol] 88.9 fL Normal 82.0-98.0 [facility] Comment on above: Order Comment: Yes: Add to Previous draw if able Performed By: #### 1 0204 #### [facility] [address] [facility] [place] [address], [facility] Nucleated RBC/100 WBC (Bld) [Ratio] 0 % Normal 0-0 [facility] Comment on above: Order Comment: Yes: Add to Previous draw if able Performed By: #### 1 4 #### [facility] [address] [facility] [place] [address], [facility] PLAT CNT 339 10*3/uL Normal 150-400 [facility] Comment on above: Order Comment: Yes: Add to Previous draw if able Performed By: #### 1 0204 #### [facility] [address] [place] [address], [facility] RBC (Bld) [#/Vol] 4.04 10*6/uL Normal 3.80-5.00 [facility] Comment on above: Order Comment: Yes: Add to Previous draw if able Performed By: #### 1 0204 #### [facility] [address] [place] [address], [facility] WBC (Bld) [#/Vol] 16.74 10*3/uL High 4.00-10.60 [facility] Comment on above: Order Comment: Yes: Add to Previous draw if able Performed By: #### 1 0204 #### [facility] [address] [facility] [place] [address], [facility] HISTOPLASMA AG URINE [id number] on 08-03-2020 HISTOPLASMA AG EIA, URINE Not Detected Normal [facility] Comment on above: Order Comment: No: D o not add to previous draw HISTOPLASMA AG, URINE Not Detected Normal Not Detected [facility] Comment on above: Order Comment: No: [...] histoplasmosis. Test developed and characteristics determined by [employer]. See Compliance Statement B: [employer] Performed By: [employer] [address] [place] [id number] Bladder Cleaner: Eliane Mendoza MD POC GLUCOSE LABon 08-03-2020 Glucose [Mass/Vol] 95 mg/dL Normal 70-100 [facility] Comment on above: Performed By: #### 8 [id number] #### [facility] [address] ASPERGILLUS GALACTOMANNAN 60 068on 08-02-2020 ASPERGILLUS GALACTOMANNAN ANTIGEN, SERUM Negative Normal Negative [facility] Comment on above: Order Comment: Yes: [...] patients, serial sampling is recommended. Performed By: [employer] [facility] [address] [place] [address] Bladder Cleaner: Eliane Mendoza MD ASPERGILLUS GALACTOMANNAN INDEX 0 Normal [facility] Comment on above: Order Comment: Yes: Add to Previous draw if able BASIC METABOLIC PANELon 07-16 Calcium [Mass/Vol] 7.6 mg/dL Low 8.6-10.3 [facility] Comment on above: Order Comment: No: D o not add to previous draw Performed By: #### 0 0071 ####[facility] [place] [address], [facility] Chloride [Moles/Vol] 102 mmol/L Normal 98-107 [facility] Comment on above: Order Comment: No: D o not add to previous draw Performed By: #### 0 0071 ####[facility] [place] [address], [facility] CO2 [Moles/Vol] 27 mmol/L Normal 21-31 [facility] Comment on above: Order Comment: No: D o not add to previous draw Performed By: #### 0 0071 ####[facility] [place] [address], [place] Creatinine [Mass/Vol] 0.87 mg/dL Normal 0.60-1.20 [facility] Comment on above: Order Comment: No: D o not add to previous draw Performed By: #### 0 0071 ####[facility] [place] [address], [place] GFR/1.73 sq M predicted among blacks MDRD (S/P/Bld) [Vol rate/Area] mL/min/{1.73_m2} Normal >60 [facility] Comment on above: Order Comment: No: D o not add to previous draw Performed By: #### 0 0071 ####[facility] [place] [address], [place] GFR/1.73 sq M predicted among non-blacks MDRD (S/P/Bld) [Vol rate/Area] mL/min/{1.73_m2} Normal >60 [facility] Comment on above: Order Comment: No: D o not add to previous draw Performed By: #### 0 0071 ####[facility] [place] [address], [facility] Glucose [Mass/Vol] 129 mg/dL High 70-100 [facility] Comment on above: Order Comment: No: D o not add to previous draw Performed By: #### 0 0071 ####[facility] [place] [address], [facility] Potassium [Moles/Vol] 3.8 mmol/L Normal 3.5-5.1 [facility] Comment on above: Order Comment: No: D o not add to previous draw Performed By: #### 0 0071 ####[facility] [place] [address], [facility] Sodium [Moles/Vol] 136 mmol/L Normal 136-145 [facility] Comment on above: Order Comment: No: D o not add to previous draw Performed By: #### 0 0071 ####[facility] [place] [address], [facility] Urea nitrogen [Mass/Vol] 23 mg/dL Normal 7-25 [facility] Comment on above: Order Comment: No: D o not add to previous draw Performed By: #### 0 0071 ####[facility] [facility] [address], [facility] CBC COMPLETE BLOOD COUNTon 0 - Erythrocyte distribution width (RBC) [Ratio] 13.8 % Normal 11.5-15.0 [facility] Comment on above: Order Comment: Yes: Add to Previous draw if able Performed By: #### 1 0204 #### [facility] [address] [place] [id number], [facility] Hematocrit (Bld) [Volume fraction] 35.5 % Low 36.0-45.0 [facility] Comment on above: Order Comment: Yes: Add to Previous draw if able Performed By: #### 1 0204 #### [facility] [address] [place] [address], [facility] Hemoglobin (Bld) [Mass/Vol] 11.1 g/dL Low 12.0-15.0 [facility] Comment on above: Order Comment: Yes: Add to Previous draw if able Performed By: #### 1 0204 #### [facility] [address] [place] [address], [facility] MCH (RBC) [Entitic mass] 28.0 pg Normal 27.0-33.0 [facility] Comment on above: Order Comment: Yes: Add to Previous draw if able Performed By: #### 1 0204 #### [facility] [address] [facility] MCHC (RBC) [Mass/Vol] 31.3 g/dL Low 32.0-35.0 [facility] Comment on above: Order Comment: Yes: Add to Previous draw if able Performed By: #### 1 0204 #### [facility] [address] [facility] [place] [address], [facility] MCV (RBC) [Entitic vol] 89.4 fL Normal 82.0-98.0 [facility] Comment on above: Order Comment: Yes: Add to Previous draw if able Performed By: #### 1 0204 #### [facility] [address] [place] [address], [facility] Nucleated RBC/100 WBC (Bld) [Ratio] 0 % Normal 0-0 [facility] Comment on above: Order Comment: Yes: Add to Previous draw if able Performed By: #### 1 0204 #### [facility] [address] [place] [address], [facility] PLAT CNT 335 10*3/uL Normal 150-400 [facility] Comment on above: Order Comment: Yes: Add to Previous draw if able Performed By: #### 1 0204 #### [facility] [address] RBC (Bld) [#/Vol] 3.97 10*6/uL Normal 3.80-5.00 [facility] Comment on above: Order Comment: Yes: Add to Previous draw if able Performed By: #### 1 0204 #### [facility] [address] [facility] WBC (Bld) [#/Vol] 19.28 10*3/uL High 4.00-10.60 [facility] Comment on above: Order Comment: Yes: Add to Previous draw if able Performed By: #### 1 0204 #### [facility] [address] FUNGITELL (1,2-CMLT-H-GLUCAN )on 08-02-2020 FUNGITELL (1,3 QCRR-N-AMIMNE) <31 Normal [facility] Comment on above: Order Comment: Yes: Add to Previous draw if able FUNGITELL INTERPRETATION Negative Normal Negative [facility] Comment on above: Order Comment: Yes: Add to Previous draw if able Result Comment: INTE RPRETIVE INFORMATION: (1,3)-esax-E-erpztv (Fungitell) Less than 31 pg/mL ................... Negative 31-59 pg/mL .......................... Negative 60-79 pg/mL .......................... Indeterminate Greater than or equal to 80 pg/mL .... Positive The Fungitell test is indicated for presumptive diagnosis of fungal infection and should be used in conjunction with other diagnostic procedures. This test does not detect certain fungal species such as Cryptococcus, which produce very low levels of (1,3)-lltw-A-nerwkw. This test will not detect the zygomycetes, such as Absidia, Mucor, and Rhizopus, which are not known to produce (1,3)-qqqn-S-zqqbcf. In addition, the yeast phase of Blastomyces dermatitidis produces little (1,3)-vtgk-Q-wfcgql and may not be detected by the assay. Performed By: [employer] [address] [place] [address] Bladder Cleaner: Eliane Mendoza MD TB QUANTIFERON PLUSon 2020 MITOGEN MINUS NIL >10.00 Normal [facility] Comment on above: Order Comment: Yes: Add to Previous draw if able Performed By: #### 3 1592 #### [facility] [address] [facility]. [address] NIL 0.09 IU/mL Normal [facility] Comment on above: Order Comment: Yes: Add to Previous draw if able Performed By: #### 3 1592 #### [facility] [address] [facility]. [address] TB QUANTIFERON Negative Normal NEGATIVE [facility] Comment on above: Order Comment: Yes: Add to Previous draw if able Result Comment: Erick tiferon TB Gold Interpretation (IU/mL): NEGATIVE: M. tuberculosis infection not likely. Nil: <=8.0 TB1 Antigen minus Nil (IS0NR-HCF): <0.35 OR >=0.35; and <25% of Nil value. TB2 Antigen minus Nil (SX3RU-WVR): <0.35 OR >=0.35; and <25% of Nil [...] (https://www.cdc.gov/tb/publications/guidlines/default.htm Performed By: #### 3 1592 #### [facility] [address] TB1 AG 0.08 IU/mL Normal [facility] Comment on above: Order Comment: Yes: Add to Previous draw if able Performed By: #### 3 1592 #### [facility] [address] [place] [address], [place] TB1 AG MINUS NIL -0.01 IU/mL Normal [facility] Comment on above: Order Comment: Yes: Add to Previous draw if able Performed By: #### 3 1592 #### [facility] [address] [place] [address], [place] TB2 AG 0.08 IU/mL Normal [facility] Comment on above: Order Comment: Yes: Add to Previous draw if able Performed By: #### 3 1592 #### [facility] [address] [place] [address], [facility] TB2 AG MINUS NIL -0.01 IU/mL Normal [facility] Comment on above: Order Comment: Yes: Add to Previous draw if able Performed By: #### 3 1592 #### [facility] [address] [place] [address], [facility] *SARS-CoV-2 COVID-19on 08-01 [id number] Not Detected Normal Not Detected [facility] Comment on above: Order Comment: No co llection time noted on specimen or requisition. The collection time recorded is the time of receipt in the lab. The Aptima SARS-CoV-2 assay is a nucleic acid amplification test intended for the qualitative detection of RNA from SARS-CoV-2 isolated and purified from nasopharyngeal (FLIGHT TEST ENGINEER),oropharyngeal (OP), nasal swab, sputum, and bronchoalveolar lavage (BAL) specimens from patients with signs and symptoms of infection who are suspected of COVID-19. Results are for the identification of SARS-CoV-2 RNA. The SARS-CoV-2 RNA is generally detectable during the acute phase of infection. The Aptima SARS-CoV-2 Assay on the [employer] system is intended for use by laboratory personnel specifically instructed and trained in the operation of the [employer] system. The Aptima SARS-CoV-2 assay is [...] information. Performed By: #### 3 1792 #### [facility] [address] [place] [address], [facility] BASIC METABOLIC PANELon 07-16 Calcium [Mass/Vol] 7.6 mg/dL Low 8.6-10.3 [facility] Comment on above: Order Comment: No: D o not add to previous draw Performed By: #### 1 0070, 96093, 38974 ####[facility] [place] [address], [facility] Chloride [Moles/Vol] 103 mmol/L Normal 98-107 [facility] Comment on above: Order Comment: No: D o not add to previous draw Performed By: #### 1 0070, 12273, 54834 ####[facility] [place] [address], [place] CO2 [Moles/Vol] 27 mmol/L Normal 21-31 [facility] Comment on above: Order Comment: No: D o not add to previous draw Performed By: #### 1 0070, 26046, 93465 ####[facility] [place] [address], [place] Creatinine [Mass/Vol] 0.85 mg/dL Normal 0.60-1.20 [facility] Comment on above: Order Comment: No: D o not add to previous draw Performed By: #### 1 0070, 49252, 25431 ####[facility] [id number], [place] GFR/1.73 sq M predicted among blacks MDRD (S/P/Bld) [Vol rate/Area] mL/min/{1.73_m2} Normal >60 [facility] Comment on above: Order Comment: No: D o not add to previous draw Performed By: #### 1 0070, 12810, 43168 ####[facility] [place] [address], [facility] GFR/1.73 sq M predicted among non-blacks MDRD (S/P/Bld) [Vol rate/Area] mL/min/{1.73_m2} Normal >60 [facility] Comment on above: Order Comment: No: D o not add to previous draw Performed By: #### 1 0, 82604, 39026 ####[facility] [place] [address], [place] Glucose [Mass/Vol] 132 mg/dL High 70-100 [facility] Comment on above: Order Comment: No: D o not add to previous draw Performed By: #### 1 0, 74314, 81431 ####[facility] [place] [address], [place] Potassium [Moles/Vol] 3.9 mmol/L Normal 3.5-5.1 [facility] Comment on above: Order Comment: No: D o not add to previous draw Performed By: #### 1 0, 26231, 08369 ####[facility] [place] [address], [place] Sodium [Moles/Vol] 138 mmol/L Normal 136-145 [facility] Comment on above: Order Comment: No: D o not add to previous draw Performed By: #### 1 0070, 02211, 90696 ####[facility] [place] [address], [place] Urea nitrogen [Mass/Vol] 19 mg/dL Normal 7-25 [facility] Comment on above: Order Comment: No: D o not add to previous draw Performed By: #### 1 0070, 94002, 83683 ####[facility] C REACTIVE PROTEINon 021 CRP [Mass/Vol] 287.0 mg/L High 0.0-7.0 [facility] Comment on above: Order Comment: Yes: Add to Previous draw if able Performed By: #### 6 1405 ####[facility] CBC W/DIFFon 08-01-2020 ABS BASOPHILS 0.1 10*3/uL Normal 0.0-0.2 [facility] Comment on above: Order Comment: Yes: Add to Previous draw if able Performed By: #### 1 0204 #### [facility] [address] ABS IMM GRANS 0.1 10*3/uL Normal 0.0-0.2 [facility] Comment on above: Order Comment: Yes: Add to Previous draw if able Performed By: #### 1 0204 #### [facility] [address] [place] [address], [facility] ABS NEUTROPHILS 19.1 10*3/uL High 1.6-7.6 [facility] Comment on above: Order Comment: Yes: Add to Previous draw if able Performed By: #### 1 0204 #### [facility] [address] [place] [address], [facility] Basophils/100 WBC (Bld) 0.2 % Normal 0.0-1.0 [facility] Comment on above: Order Comment: Yes: Add to Previous draw if able Performed By: #### 1 0204 #### [facility] [address] [place] [address], [facility] Eosinophils (Bld) [#/Vol] 0.1 10*3/uL Normal 0.0-0.5 [facility] Comment on above: Order Comment: Yes: Add to Previous draw if able Performed By: #### 1 0204 #### [facility] [address] [place] [address], [facility] Eosinophils/100 WBC (Bld) 0.4 % Normal 0.0-6.0 [facility] Comment on above: Order Comment: Yes: Add to Previous draw if able Performed By: #### 1 0204 #### [facility] [address] Erythrocyte distribution width (RBC) [Ratio] 13.8 % Normal 11.5-15.0 [facility] Comment on above: Order Comment: Yes: Add to Previous draw if able Performed By: #### 1 0204 #### [facility] [address] Hematocrit (Bld) [Volume fraction] 38.9 % Normal 36.0-45.0 [facility] Comment on above: Order Comment: Yes: Add to Previous draw if able Performed By: #### 1 0204 #### [facility] [address] Hemoglobin (Bld) [Mass/Vol] 12.0 g/dL Normal 12.0-15.0 [facility] Comment on above: Order Comment: Yes: Add to Previous draw if able Performed By: #### 1 0204 #### [facility] [address] [place] [address], [facility] IMMATURE GRANS 0.6 % Normal 0.0-1.0 [facility] Comment on above: Order Comment: Yes: Add to Previous draw if able Performed By: #### 1 0204 #### [facility] [address] [place] [address], [facility] Lymphocytes (Bld) [#/Vol] 0.7 10*3/uL Low 1.2-4.0 [facility] Comment on above: Order Comment: Yes: Add to Previous draw if able Performed By: #### 1 0204 #### [facility] [address] [place] [address], [facility] Lymphocytes/100 WBC (Bld) 3.2 % Low 20.0-45.0 [facility] Comment on above: Order Comment: Yes: Add to Previous draw if able Performed By: #### 1 0204 #### [facility] [address] [place] [address], [facility] MCH (RBC) [Entitic mass] 27.4 pg Normal 27.0-33.0 [facility] Comment on above: Order Comment: Yes: Add to Previous draw if able Performed By: #### 1 4 #### [facility] [address] [place] [address], [facility] MCHC (RBC) [Mass/Vol] 30.8 g/dL Low 32.0-35.0 [facility] Comment on above: Order Comment: Yes: Add to Previous draw if able Performed By: #### 1 4 #### [facility] [address] [facility] [place] [address], [facility] MCV (RBC) [Entitic vol] 88.8 fL Normal 82.0-98.0 [facility] Comment on above: Order Comment: Yes: Add to Previous draw if able Performed By: #### 1 4 #### [facility] [address] [facility] [place] [address], [facility] Monocytes (Bld) [#/Vol] 0.8 10*3/uL Normal 0.1-1.0 [facility] Comment on above: Order Comment: Yes: Add to Previous draw if able Performed By: #### 1 0204 #### [facility] [address] [place] [address], [facility] MONOS 3.9 % Low 5.0-12.0 [facility] Comment on above: Order Comment: Yes: Add to Previous draw if able Performed By: #### 1 0204 #### [facility] [address] [place] [address], [facility] Neutrophils/100 WBC (Bld) 91.7 % High 40.0-72.0 [facility] Comment on above: Order Comment: Yes: Add to Previous draw if able Performed By: #### 1 0204 #### [facility] [address] [place] [address], [facility] Nucleated RBC/100 WBC (Bld) [Ratio] 0 % Normal 0-0 [facility] Comment on above: Order Comment: Yes: Add to Previous draw if able Performed By: #### 1 0204 #### [facility] [address] [place] [address], [facility] PLAT CNT 367 10*3/uL Normal 150-400 [facility] Comment on above: Order Comment: Yes: Add to Previous draw if able Performed By: #### 1 0204 #### [facility] [address] [place] [address], [facility] RBC (Bld) [#/Vol] 4.38 10*6/uL Normal 3.80-5.00 [facility] Comment on above: Order Comment: Yes: Add to Previous draw if able Performed By: #### 1 0204 #### [facility] [address] [place] [address], [facility] WBC (Bld) [#/Vol] 20.78 10*3/uL High 4.00-10.60 [facility] Comment on above: Order Comment: Yes: Add to Previous draw if able Performed By: #### 1 0204 #### [facility] [address] CYCLIC CITRULLINATED PEPTIDE [place] [id number] 08-01-2020 CYCLIC CIT PEP 224 Units High 0-19 [facility] Comment on above: Order Comment: Yes: [...] be monitored and testing repeated. Performed By: [employer] [address] [place] [id number] Bladder Cleaner: Eliane Mendoza MD MAGNESIUM BLOODon 08-01-2020 Magnesium [Mass/Vol] 1.7 mg/dL Low 1.9-2.7 [facility] Comment on above: Order Comment: Yes: Add to Previous draw if able Performed By: #### 1 0204 #### [facility] [address] PHOSPHORUS BLOODon 1 Phosphate [Mass/Vol] 2.7 mg/dL Normal 2.5-5.0 [facility] Comment on above: Performed By: #### 1 0070, 60896, 98963 ####[facility] PROTHROMBIN TIMEon 1 INR Coag (PPP) [Relative time] 1.50 {INR} High 0.91-1.16 [facility] Comment on above: Order Comment: Yes: Add to Previous draw if able Result Comment: ACC P RECOMMENDED INR FOR WARFARIN THERAPY ------- CONDITION INR PROPHYLAXIS OF VENOUS THROMBOSIS 2-3 (HIGH-RISK SURGERY) TREATMENT OF VENOUS THROMBOSIS 2-3 TREATMENT OF PULMONARY EMBOLISM 2-3 PREVENTION OF SYSTEMIC EMBOLISM: 2-3 ACUTE MYOCARDIAL INFARCTION TISSUE HEART VALVES VALVULAR HEART DISEASE ATRIAL FIBRILLATION RECURRENT SYSTEMIC EMBOLISM MECHANICAL HEART VALVE 2.5-3.5 FROM: ORAL ANTICOAGULANTS. MECHANISM OF ACTION, CLINICAL EFFECTIVENESS, AND OPTIMAL THERAPEUTIC RANGE. CHEST 1995;108:231S-246S. Performed By: #### 5 6101 ####[facility] PT Coag (PPP) [Time] 18.1 s High 12.3-14.8 [facility] Comment on above: Order Comment: Yes: Add to Previous draw if able Result Comment: ALL RESULTS MUST BE INTERPRETED WITH RESPECT TO BLOOD DRAWING ARTIFACT OR DILUTION ERROR OF ANTICOAGULANT AT THE TIME OF SAMPLING. Performed By: #### 5 6101 ####[facility] [facility] RHEUMATOID FACTOR SERUMon RA 64 IU/mL High 0-20 [facility] Comment on above: Order Comment: Yes: Add to Previous draw if able Performed By: #### 1 0204 #### [facility] [address] [place] [address], [facility] SEDIMENTATION RATEon 021 SED RATE 41 mm/hr High 0-20 [facility] Comment on above: Order Comment: Yes: Add to Previous draw if able Performed By: #### 1 0204 #### [facility] [address] [facility] [place] [address], [facility] TROPONIN-Ion 08-01-2020 Troponin I.cardiac [Mass/Vol] 0.01 ng/mL Normal 0.00-0.04 [facility] Comment on above: Order Comment: Yes: Add to Previous draw if able Result Comment: REFE RENCE RANGES: 0.00 - 0.04 ng/ml NORMAL 0.05 - 0.50 ng/ml INDETERMINATE > 0.50 ng/ml CONSISTENT WITH AN M.I. Performed By: #### 3 5200 ####[facility] LACTATE WITH REFLEXon 2020 Lactate [Moles/Vol] 0.9 mmol/L Normal 0.5-2.2 [facility] Comment on above: Performed By: #### 3 1414 ####[facility] *BLOOD CULTUREon 07-31-2020 Bacteria identified Cx Nom (Bld) Clinical Report: (D) Specimen: BLOOD CULTURE Collected: 07/31/2020 17:20 Status: Final Last Updated: 08/06/2020 15:38 (1) Prior to antibiotic administration LAC CULT RES (Final) No Growth Day 5 Normal [facility] Comment on above: Order Comment: Prior to antibiotic administration LAC Performed By: #### 3 0313 #### [facility] [address] Bacteria identified Cx Nom (Bld) Clinical Report: (D) Specimen: BLOOD CULTURE Collected: 07/31/2020 16:20 Status: Final Last Updated: 08/06/2020 15:38 (1) Prior to antibiotic administration RFA CULT RES (Final) No Growth Day 5 Normal [facility] Comment on above: Order Comment: Yes: Add to Previous draw if able Performed By: #### 3 0313 ####[facility] BASIC METABOLIC PANELon 07-16 Calcium [Mass/Vol] 7.7 mg/dL Low 8.6-10.3 [facility] Comment on above: Order Comment: Fluid Collection Performed By: #### 9 9909, 12917, 33867 ####[facility] [place] [address], [place] Chloride [Moles/Vol] 104 mmol/L Normal 98-107 [facility] Comment on above: Order Comment: Fluid Collection Performed By: #### 9 9909, 85321, 92653 ####[facility] [place] [address], [place] CO2 [Moles/Vol] 25 mmol/L Normal 21-31 [facility] Comment on above: Order Comment: Fluid Collection Performed By: #### 9 9909, 36582, 17293 ####[facility] [place] [address], [place] Creatinine [Mass/Vol] 0.82 mg/dL Normal 0.60-1.20 [facility] Comment on above: Order Comment: Fluid Collection Performed By: #### 9 9909, 03630, 05411 ####[facility] [place] [address], [place] GFR/1.73 sq M predicted among blacks MDRD (S/P/Bld) [Vol rate/Area] mL/min/{1.73_m2} Normal >60 [facility] Comment on above: Order Comment: Fluid Collection Performed By: #### 9 9909, 39235, 55297 ####[facility] [place] [address], [place] GFR/1.73 sq M predicted among non-blacks MDRD (S/P/Bld) [Vol rate/Area] mL/min/{1.73_m2} Normal >60 [facility] Comment on above: Order Comment: Fluid Collection Performed By: #### 9 9909, 15129, 33558 ####[facility] [place] [address], [place] Glucose [Mass/Vol] 159 mg/dL High 70-100 [facility] Comment on above: Order Comment: Fluid Collection Performed By: #### 9 9909, 93622, 08487 ####[facility] Potassium [Moles/Vol] 4.4 mmol/L Normal 3.5-5.1 [facility] Comment on above: Order Comment: Fluid Collection Performed By: #### 9 9909, 92802, 62551 ####[facility] Sodium [Moles/Vol] 138 mmol/L Normal 136-145 [facility] Comment on above: Order Comment: Fluid Collection Performed By: #### 9 9909, 86007, 09920 ####[facility] [facility].[address] Urea nitrogen [Mass/Vol] 20 mg/dL Normal 7-25 [facility] Comment on above: Order Comment: Fluid Collection Performed By: #### 9 9909, 46893, 21945 ####[facility] [facility] [address], [facility] CBC W/DIFFon 07-31-2020 ABS BASOPHILS 0.0 10*3/uL Normal 0.0-0.2 [facility] Comment on above: Order Comment: Yes: Add to Previous draw if able Performed By: #### 1 0204 #### [facility] [address] [place] [address], [facility] ABS IMM GRANS 0.1 10*3/uL Normal 0.0-0.2 [facility] Comment on above: Order Comment: Yes: Add to Previous draw if able Performed By: #### 1 0204 #### [facility] [address] [place] [address], [facility] ABS NEUTROPHILS 16.2 10*3/uL High 1.6-7.6 [facility] Comment on above: Order Comment: Yes: Add to Previous draw if able Performed By: #### 1 0204 #### [facility] [address] [place] [address], [facility] Basophils/100 WBC (Bld) 0.2 % Normal 0.0-1.0 [facility] Comment on above: Order Comment: Yes: Add to Previous draw if able Performed By: #### 1 0204 #### [facility] [address] [place] [address], [facility] Eosinophils (Bld) [#/Vol] 0.0 10*3/uL Normal 0.0-0.5 [facility] Comment on above: Order Comment: Yes: Add to Previous draw if able Performed By: #### 1 0204 #### [facility] [address] [place] [address], [facility] Eosinophils/100 WBC (Bld) 0.0 % Normal 0.0-6.0 [facility] Comment on above: Order Comment: Yes: Add to Previous draw if able Performed By: #### 1 0204 #### [facility] [address] [place] [address], [facility] Erythrocyte distribution width (RBC) [Ratio] 13.5 % Normal 11.5-15.0 [facility] Comment on above: Order Comment: Yes: Add to Previous draw if able Performed By: #### 1 0204 #### [facility] [address] [place] [id number], [facility] Hematocrit (Bld) [Volume fraction] 40.4 % Normal 36.0-45.0 [facility] Comment on above: Order Comment: Yes: Add to Previous draw if able Performed By: #### 1 0204 #### [facility] [address] [place] [address], [facility] Hemoglobin (Bld) [Mass/Vol] 12.9 g/dL Normal 12.0-15.0 [facility] Comment on above: Order Comment: Yes: Add to Previous draw if able Performed By: #### 1 0204 #### [facility] [address] IMMATURE GRANS 0.4 % Normal 0.0-1.0 [facility] Comment on above: Order Comment: Yes: Add to Previous draw if able Performed By: #### 1 0204 #### [facility] [address] [place] [address], [facility] Lymphocytes (Bld) [#/Vol] 0.8 10*3/uL Low 1.2-4.0 [facility] Comment on above: Order Comment: Yes: Add to Previous draw if able Performed By: #### 1 0204 #### [facility] [address] [place] [address], [facility] Lymphocytes/100 WBC (Bld) 4.7 % Low 20.0-45.0 [facility] Comment on above: Order Comment: Yes: Add to Previous draw if able Performed By: #### 1 0204 #### [facility] [address] [place] [address], [facility] MCH (RBC) [Entitic mass] 28.0 pg Normal 27.0-33.0 [facility] Comment on above: Order Comment: Yes: Add to Previous draw if able Performed By: #### 1 0204 #### [facility] [address] [place] [address], [facility] MCHC (RBC) [Mass/Vol] 31.9 g/dL Low 32.0-35.0 [facility] Comment on above: Order Comment: Yes: Add to Previous draw if able Performed By: #### 1 0204 #### [facility] [address] [place] [address], [facility] MCV (RBC) [Entitic vol] 87.8 fL Normal 82.0-98.0 [facility] Comment on above: Order Comment: Yes: Add to Previous draw if able Performed By: #### 1 0204 #### [facility] [address] [facility] [place] [address], [facility] Monocytes (Bld) [#/Vol] 0.8 10*3/uL Normal 0.1-1.0 [facility] Comment on above: Order Comment: Yes: Add to Previous draw if able Performed By: #### 1 0204 #### [facility] [address] [place] [id number], [facility] MONOS 4.6 % Low 5.0-12.0 [facility] Comment on above: Order Comment: Yes: Add to Previous draw if able Performed By: #### 1 0204 #### [facility] [address] [place] [address], [facility] Neutrophils/100 WBC (Bld) 90.1 % High 40.0-72.0 [facility] Comment on above: Order Comment: Yes: Add to Previous draw if able Performed By: #### 1 4 #### [facility] [address] [place] [address], [facility] Nucleated RBC/100 WBC (Bld) [Ratio] 0 % Normal 0-0 [facility] Comment on above: Order Comment: Yes: Add to Previous draw if able Performed By: #### 1 0204 #### [facility] [address] [facility] [place] [address], [facility] PLAT CNT 383 10*3/uL Normal 150-400 [facility] Comment on above: Order Comment: Yes: Add to Previous draw if able Performed By: #### 1 0204 #### [facility] [address] [place] [address], [facility] RBC (Bld) [#/Vol] 4.60 10*6/uL Normal 3.80-5.00 [facility] Comment on above: Order Comment: Yes: Add to Previous draw if able Performed By: #### 1 0204 #### [facility] [address] [place] [address], [place] WBC (Bld) [#/Vol] 17.95 10*3/uL High 4.00-10.60 [facility] Comment on above: Order Comment: Yes: Add to Previous draw if able Performed By: #### 1 0204 #### [address] ABDOMEN AND PELVIS W IV A ND ORAL CONTRASTon 07-31-2020 CT ABDOMEN AND PELVIS W IV AND ORAL CONTRAST [facility] Department of Radiology [address] [place] [id number] Patient Name: JARETT KEBEDE : 1965 Sex: F Age: Race: White Pt. Location: [facility] Patient Status: I Ordered Date: 07/31/2020 [...] etiology. Electronically signed: Ramiro Aquino. Transcribed by: [email or web address], User Resident: RAMIRO AQUINO Electronically Signed by: RAMIRO AQUINO @ 07/31/2020 08:38 PM I personally read this/these film(s) with this resident Normal [facility] Comment on above: Order Comment: Yes: Add to Previous draw if able CT CHEST W CONTRASTon 2020 CT CHEST W CONTRAST [facility] Department of Radiology [address] [place] [address] Patient Name: JARETT KEBEDE : 1965 Sex: F Age: Race: White Pt. Location: [facility] Patient Status: I Ordered Date: 07/31/2020 [...] criteria. Electronically signed: Ramiro Aquino. Transcribed by: [email or web address], User Resident: RAMIRO AQUINO Electronically Signed by: RAMIRO AQUINO @ 07/31/2020 08:21 PM I personally read this/these film(s) with this resident Normal [facility] Comment on above: Order Comment: Yes: Add to Previous draw if able LIPASE BLOODon 07-31-2020 Lipase [Catalytic activity/Vol] U/L Low 11-82 [facility] Comment on above: Order Comment: Fluid Collection Performed By: #### 9 [id number], 14383, 81176 ####[facility] [place] [address], [facility]TERY[facility] 07-31-2020 Albumin [Mass/Vol] 2.6 g/dL Low 3.5-5.7 [facility] Comment on above: Order Comment: Fluid Collection Performed By: #### 9 9909, 18803, 82062 ####[facility] [place] [address], [place] ALKALINE PHOSPH 56 IU/L Normal 34-104 [facility] Comment on above: Order Comment: Fluid Collection Performed By: #### 9 9909, 98740, 73942 ####[facility] [place] [address], [place] ALT [Catalytic activity/Vol] 13 U/L Normal 7-52 [facility] Comment on above: Order Comment: Fluid Collection Performed By: #### 9 9909, 20105, 06334 ####[facility] [place] [address], [place] AST [Catalytic activity/Vol] 13 U/L Normal 13-39 [facility] Comment on above: Order Comment: Fluid Collection Performed By: #### 9 9909, 79165, 69346 ####[facility] [place] [address], [place] Bilirubin [Mass/Vol] 0.6 mg/dL Normal 0.3-1.0 [facility] Comment on above: Order Comment: Fluid Collection Performed By: #### 9 9909, 66355, 72296 ####[facility] [place] [address], [place] Bilirubin.direct [Mass/Vol] 0.1 mg/dL Normal 0.0-0.2 [facility] Comment on above: Order Comment: Fluid Collection Performed By: #### 9 9909, 28267, 00982 ####[facility] [place] [address], [place] Protein [Mass/Vol] 6.0 g/dL Normal 6.0-8.3 [facility] Comment on above: Order Comment: Fluid Collection Performed By: #### 9 9909, 53289, 08239 ####[facility] Vital Signs Date Time Vital Sign Value Performing Clinician Facility 01-10-2022 15:53-0400 Blood Pressure Location Jeremias SAMAN [facility] 01-10-2022 15:53-0400 Body temperature 97.52 [degF] Jeremias DAVISON [facility] 01-10-2022 15:53-0400 Diastolic blood pressure 84 mm[Hg] Jeremias DAVISON [facility] 01-10-2022 15:53-0400 Heart rate 70 /min Jeremias DAVISON [facility] 01-10-2022 15:53-0400 SaO2% (BldA) [Mass fraction] 95 % Jeremias SAMAN [facility] 01-10-2022 15:53-0400 Systolic blood pressure 144 mm[Hg] Jeremias DAVISON [facility] 09-01-2021 15:15-0500 Body temperature 98 [degF] Albin Bruno Other [facility] Other 09-01-2021 15:15-0500 Diastolic blood pressure 78 mm[Hg] Albin Bruno Other [facility] Other 09-01-2021 15:15-0500 Systolic blood pressure 123 mm[Hg] Albin Bruno Other [facility] Other Encounters Encounter Date Encounter Type Care Provider Facility Start: 03-20-2024 End: 03-20-2024 ambulatory Ann L Obermeyer [facility] Work Phone: Start: 03-20-2024 End: 03-20-2024 Patient encounter procedure FLIGHT TEST ENGINEER-C Ann Pride Work Phone: [facility] [address] Work Phone: Start: 02-14-2024 End: 02-14-2024 ambulatory SENIOR SOFTWARE QUALITY ENGINEER Ann L Preethi Facility:[facility] Start: 11-14-2023 End: 11-14-2023 ambulatory SENIOR SOFTWARE QUALITY ENGINEER Ann L Preethi Facility:[facility] Start: 11-12-2023 End: 12-12-2023 ambulatory SENIOR SOFTWARE QUALITY ENGINEER Ann L Preethi Facility:CD:[id number] Start: 11-08-2023 End: 11-08-2023 ambulatory Sunshine Vidal [facility] Work Phone: Start: 11-08-2023 End: 11-08-2023 Departed Referred DPM [facility] Work Phone: [facility] Start: 05-30-2023 End: 05-30-2023 ambulatory SENIOR SOFTWARE QUALITY ENGINEER Ann L Preethi Facility:[facility] [place] [facility] Start: 05-22-2023 End: 05-22-2023 ambulatory SENIOR SOFTWARE QUALITY ENGINEER Ann L Preethi Facility:[facility] [place] [facility] Start: 05-15-2023 ambulatory SENIOR SOFTWARE QUALITY ENGINEER Ann Preethi Facilit y:[facility] [place] Start: 11-23-2022 End: 11-24-[address] JEREMIAS DAVISON Facility:[facility] Start: 10-05-2022 End: 10-06-[address] JEREMIAS [...] encounter procedure MD Shay Baldwin Work Phone: [facility] [address] Start: 01-10-2022 End: 01-10-2022 Patient encounter procedure Jeremias DAVISON [facility] Start: 12-26-2021 End: 12-26-2021 Patient encounter procedure Jeremias DAVISON [facility] Start: 12-07-2021 End: 12-08-[address] JEREMIAS DAVISON Facility:[facility] Start: 09-08-2021 End: 09-08-2021 ambulatory Albin Bruno Other [facility] Other Start: 09-08-2021 Telephone encounter Albin Bruno [facility] Start: 09-01-2021 End: 09-01-2021 ambulatory Albin Bruno Other [facility] Other Start: 09-01-2021 Office outpatient ne w 45 minutes Albin Bruno [facility] Start: 07-31-2020 End: 08-07-2020 Evaluation and management of inpatient SD Facility:[facility] Procedures Date Procedure Procedure Detail Performing Clinician Start: 08-04-2020 DRAINAGE OF RETROPERITONEUM, PERCUTANEOUS APPROACH, DIAGN JOVANI GOLD Start: 07-16-1999 Hysterectomy Jeremias ENRIQUE Colon part (body structure) Jeremias DAVISON [facility]le[facility] (physical object) Jeremias DAVISON Payers Date Payer Category Payer Self-pay [id number] 1965 Unknown [id number] 2.16.8 40.1.217364.3.579.2.647 1965 Unknown [id number] 2.16.84 0.1.463067.3.579.2.593 1965 Unknown [id number] 2.16.84 0.1.951611.3.579.2.593 1965 Unknown [id number] 2.16.84 0.1.956847.3.579.2.593 1965 Unknown [id number] 2.16.84 0.1.292234.3.579.2.593 1965 Unknown [id number] 2.16.84 0.1.342031.3.579.2.593 1965 Unknown [id number] 2.16.84 0.1.768217.3.579.2.593 1965 Unknown [id number] 2.16.84 0.1.147366.3.579.2.593 1965 Unknown [id number] 2.16.84 0.1.927350.3.579.2.593 1965 Unknown [id number] 2.16.84 0.1.157972.3.579.2.593 1965 Unknown [id number] 2.16.84 0.1.323775.3.579.2.593 1965 Unknown [id number] 2.16.84 0.1.103061.3.579.2.593 1965 Unknown [id number] 2.16.84 0.1.576757.3.579.2.593 1965 Unknown [id number] 2.16.84 0.1.904970.3.579.2.593 1965 Unknown [id number] 2.16.84 0.1.607409.3.579.2.593 1965 Unknown [id number] 2.16.8 40.1.803376.3.579.2.727 1965 Unknown [id number] 2.16.8 40.1.373536.3.579.2.727 1965 Unknown [id number] 2.16.8 40.1.937902.3.579.2.727 1965 Unknown [id number] 2.16.8 40.1.271370.3.579.2.727 1965 Unknown [id number] 2.16.8 40.1.748514.3.579.2.727 1965 Unknown [id number] 2.16.8 40.1.662247.3.579.2.727 1965 Unknown [id number] 2.16.8 40.1.597034.3.579.2.727 1965 Unknown [id number] 2.16.8 40.1.500620.3.579.2.727 1961 Medicaid [id number] 1961 Medicare [id number] 1961 Medicare [id number] Medicare Medicare Outpatient [id number] Unknown [id number] 2.16.8 40.1.753798.3.579.2.531 Unknown [id number] 2.16.8 40.1.280844.3.579.2.531 Social History Date Type Detail Facility Tobacco Unknown if ever smoked [facility] Other Comment on above: denies Sex Assigned At Female [facility] Other Start: 11-27-2018 Tobacco smoking status Ex-smoker (fi nding) [facility] Start: 1965 Sex Assigned At Female [facility] Functional Status Date Assessment Result Facility 01-10-2022 Functional Status N/A [facility] Clinical Notes 09-01-2021 to 11-13-2023 Note Date & Type Note Facility 11-13-2023 Note [id number] #1.00TIFF [facility] 11-09-2023 Note [id number] #1.00TIFF [facility] 09-01-2021 Evaluation note Encounter Date Diagnosis Assessment [...] antibiotic treatment at home (ICD-10 - Z79.2) [facility] Other Evaluation + Plan note Future Appointments Appointment Date:01/10/2022 04:00:00 PM Scheduled Provider:Jeremias DAVISON DO Location:[facility] Appointment Type: Open Future Scheduled Tests Radiology* XR Abdomen 1 View 09/21/21 [facility] Evaluation + Plan note Future Appointments Appointment Date:02/20/2022 03:30:00 PM Scheduled Provider: Location:[facility] Appointment Type: Medicare Wellness Subsequent Future Scheduled Tests Radiology* XR Abdomen 1 View 09/21/21 [facility] Evaluation [facility]No [facility] Other Evaluation noteNo assessment information available [facility] Work Phone: [facility] general Narrative - Reported* Type Description Date Surgical History hysterectomy Surgical History partial colon removal and rever isela of colostomy Surgical History appendectomy [facility] Other Hospital course Narrative No data available for this section [facility] Hospital Discharge instructions No data available for this section [facility] Progress note No data available for this section [facility] Summary Purpose Family History No Family History Records Found Relationship Condition Age at Onset Recorded Date/T gabo father Unknown History of stroke Unknown Hypertension Unknown family member Unknown Not Specified Hypertension Unknown Unknown Malignant neoplasm Unknown Relationship Condition Age at Onset Recorded Date/T gabo father Unknown History of stroke Unknown Hypertension Unknown family member Unknown mother Hypertension Unknown Unknown Malignant neoplasm Unknown Advance Directives No Advanced Directives Records Found Advance Directive Response Recorded Date/ Time Advance Directives No March 2:54pm Hospital Course Note MR#: [id number] I [facility] Pt. Name: Jarett Kebede Admitted: 07/31/2020 Discharged: [...] for Visit Chief Complaint M05.79 M15.0 Z79.899 Chief Complaint Unknown Additional Source Comments INFORMATION SOURCE (unrecogn ized section and content) DATE CREATED AUTHOR 08/09/2020 [facility] DATE CREATED AUTHOR AUTHOR'S ORGANIZ ATION 11/28/2022 [facility] DATE CREATED AUTHOR AUTHOR'S ORGANIZ ATION 02/17/2024 [facility] DATE CREATED AUTHOR AUTHOR'S ORGANIZ ATION 04/02/2024 [facility] Care Team (unrecognized sect ion and content) Team Status: Inactive Member Role Status Dates Shay Baldwin MD Primary Care Provider, Attending Helena mendenhall Active Team Status: Active Member Role Status Dates Shay Baldwin MD Primary Care Provider Active Team Status: Inactive Member Role Status Dates Sunshine Bryson DPM MS Attending Provider Active Start: November 08, 2023 End: November 08, 2023 Team Status: Inactive Member Role Status Dates MAURICIO Keita Attending Provider Active Start: March 20, 2024 End: March 20, 2024 REASON FOR VISIT (unrecogniz ed section and [...] BE BASED ON THE PRIMARY CLINICAL RECORDS. [facility]. provides no warranty or guarantee of the accuracy or completeness of information in this document.
--- NOTE | 2024-04-03 13:19 | CT_ITS ---
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 Axial, Coronal, and Sagittal images. Dose reduction techniques were achieved by using automated exposure control and/or adjustment of mA and/or kV according to patient size and/or use of iterative reconstruction technique. FINDINGS: LUNGS: Mild basilar bronchiectasis. Scattered bilateral solid and cavitary pulmonary nodules overall slightly decreased from the prior exam the largest solid nodule measuring 1.6 cm in the medial basilar segment of the right lower lobe axial image #67 and a cavitary lesion in the left lower lober now measuring 4.1 x 1.0 cm, axial image 54. No new significant pulmonary nodule or mass PLEURA: [Pleural thickening, stable. No pleural effusion or pneumothorax VASCULATURE: No abnormality. SIS: No mass or adenopathy. MEDIASTINUM: No mass or adenopathy. CARDIAC: No enlargement or pericardial effusion Coronary arteries: Heavy calcifications AORTA: No aortic aneurysm. Mild calcific atherosclerosis CHEST WALL: No mass or axillary adenopathy. BONES: No bone lesion or fracture. LIMITED ABDOMEN: No suspicious findings. Limited images of the upper abdomen. OTHER: Negative. CT/CT chest wo con IMPRESSION: Scattered solid and cavitary pulmonary nodules overall decreased from the prior exam. The etiology is unknown Electronically authenticated by: RICHIE TERRY Date: 04/07/2024 07:56
== END 2024-04-03 12:45 | disposition home or self-care (01) ==
LOC: CT 12:46
PROVIDERS: PCP Family Medicine; Visit Provider Internal Medicine
DX: M05.10 Rheumatoid lung disease with rheumatoid arthritis of unspecified site (principal)
CPT/HCPCS: 71250

== ENCOUNTER 2024-11-04 13:53 | Outpatient (OUT) | payer MEDICARE, MEDICAID, SELFPAY ==
--- NOTE | 2024-11-04 14:04 | XR_ITS ---
[address] [address] Patient Name: JARETT KEBEDE MRN: [id number] date: 1965 Sex: F Assigned Patient Location: [facility] Current Patient Location: CT Accession/Order Number: [id number] Exam Date: 11/04/2024 14:48 Report Date: 11/04/2024 14:51 At the request of: SHAHEEN VERONICA NP Procedure: XR shoulder RT min 2V 3 views right shoulder plain film HISTORY: Chronic right shoulder pain. Limited range of motion COMPARISON: None ACUTE FINDINGS: None DEGENERATIVE CHANGE: Acromioclavicular marginal spurring. Chronic changes of the greater tuberosity. Glenohumeral inferior marginal spurring. Glenohumeral joint space narrowing. SOFT TISSUE FINDINGS: Unremarkable JOINT EFFUSION: None POSTOP CHANGES: None BONY MINERALIZATION: Adequate XR/XR shoulder RT min 2V IMPRESSION: Extensive right shoulder degeneration. Impression dictated by: Sanya Allen M.D.11/04/2024 2:51 PM Dictation Location: [place] [address] Electronically authenticated by: [id number] Y Date: 11/04/2024 14:51
== END 2024-11-04 13:54 | disposition home or self-care (01) ==
LOC: RAD 13:53
PROVIDERS: PCP Family Medicine; Visit Provider Registered Nurse
DX: M06.9 Rheumatoid arthritis, unspecified (principal); M25.511 Pain in right shoulder; M19.011 Primary osteoarthritis, right shoulder
CPT/HCPCS: 73030

== ENCOUNTER 2024-11-04 13:54 | Outpatient (OUT) | payer MEDICARE, MEDICAID, SELFPAY ==
--- NOTE | 2024-11-04 15:00 | CT_ITS ---
The [address] [address] Patient Name: JARETT KEBEDE MRN: [id number] date: 1965 Sex: F Assigned Patient Location: CT Current Patient Location: CT Accession/Order Number: [id number] Exam Date: 11/04/2024 15:44 Report Date: 11/04/2024 15:53 At the request of: SHAHEEN DAWN Procedure: CT abdomen wo con CT of abdomen without IV contrast. Oral contrast. TECHNIQUE: The CT exam was performed using one or more the following dose reduction techniques: Automated exposure control, adjustment of the MA and/or Kv according to patient size, or use of the iterative reconstruction technique. COMPARISON: 12/05/2022 HISTORY: Presurgical evaluation for abdominal hernia. Continued basilar parenchymal densities. Developing Cavitary lesions posterior costophrenic angle. Similar spiculated densities. Similar distribution of parenchymal densities compared to prior examination. may represent inflammatory etiology. Liver, gallbladder, spleen, pancreas and adrenal glands are unremarkable. Atrophic changes of the pancreas. No nephrolithiasis or obstructive uropathy. Colonic diverticulosis. No aortic aneurysm. No adenopathy. The large ventral hernia redemonstrated. Incompletely visualized. Contains small and large bowel and stomach. No obstruction. Thoracolumbar degenerative change. CT/CT abdomen wo con IMPRESSION: Redemonstration of large ventral wall hernia. This contains large and small bowel and portion of stomach. No obstruction. This is incompletely seen with CT of the abdomen. Similar distribution of spiculated basilar densities. Interval development of the cavitation in region of spiculation. Consider chronic inflammatory changes. Impression dictated by: Sanya Allen M.D.11/04/2024 3:53 PM Dictation Location: [facility] Electronically authenticated by: [id number] Y Date: 11/04/2024 15:53
== END 2024-11-04 13:55 | disposition home or self-care (01) ==
LOC: CT 13:54
PROVIDERS: PCP Family Medicine; Visit Provider Nurse Practitioner
DX: K46.9 Unspecified abdominal hernia without obstruction or gangrene (principal); K43.9 Ventral hernia without obstruction or gangrene; M06.9 Rheumatoid arthritis, unspecified; M25.511 Pain in right shoulder; M19.011 Primary osteoarthritis, right shoulder
CPT/HCPCS: 73030; 74150

== ENCOUNTER 2025-03-18 16:17 | Outpatient (OUT) | payer MEDICARE, MEDICAID, SELFPAY ==
--- NOTE | 2025-03-18 | XR_ITS ---
[place] [id number] Patient Name: JARETT KEBEDE MRN: [id number] date: 1965 Sex: F Assigned Patient Location: [facility] Current Patient Location: [facility] Accession/Order Number: [id number] Exam Date: 03/18/2025 16:50 Report Date: 03/18/2025 23:13 At the request of: SHAHEEN DAWN Procedure: XR ankle PAULINE min 3V 2 views both ankles HISTORY: Bilateral ankle pain. History of rheumatoid arthritis Adequate alignment. No acute bony findings. Calcaneal spurring. Diffuse soft tissue swelling. Mild degeneration. XR/XR ankle PAULINE min 3V IMPRESSION: Bilateral ankle degeneration. Soft tissue prominence. Calcaneal spurring. Impression dictated by: Sanya Allen M.D. 03/18/2025 11:13 PM Dictation Location: [place] [address] Electronically authenticated by: [id number] Y Date: 03/18/2025 23:13
--- OUTSIDE RECORDS SUMMARY | 2025-03-18 19:32 | XMS_ITS | CCD ---
Author Organization [facility] Care Team Providers Care Soft Drink Powder Mixer Name Role Phone [place] Procedure Practitioner Unavailab ZAKIYA Everett Primary Care Unavailable JOVANI GOLD Surgeon Unavailable JONO VALDIVIA Attending Unavailable JONO VALDIVIA Admitting Unavailable SELF, REFERRED Referring Unavailable Zakiya DAVISON Primary Care Physician [phone] Albin Bruno MD Shay Baldwin Primary Care Provider MD Shay Baldwin Attending Provider [phone] ZAKIYA DAVISON Primary Care Unavailable SUNSHINE BRYSON Attending Unavailable SUNSHINE BRYSON Admitting Unavailable SAMAN, DR ZAKIYA Moralez Primary Care Unavailable KAREN, SUNSHINE Vidal Attending Unavailable SUNSHINE BRYSON Admitting Unavailable SAMAN, DR ZAKIYA Moralez Primary Care Unavailable SUNSHINE BRYSON Attending Unavailable KAREN, SUNSHINE Vidal Admitting Unavailable SAMAN, DR ZAKIYA Moralez Primary Care Unavailable PEPE RUBIO Attending Unavaila dinah ANDRE .PEPE Admitting Unavaila dinah DAVISON, DR ZAKIYA Moralez Primary Care Unavailable SUNSHINE BRYSON Attending Unavailable KAREN, SUNSHINE Vidal Admitting Unavailable SAMAN, DR ZAKIYA Moralez Primary Care Unavailable SUNSHINE BRYSON Attending Unavailable SUNSHINE BRYSON Admitting Unavailable SAMAN, DR ZAKIYA Moralez Primary Care Unavailable SUNSHINE BRYSON Attending Unavailable SUNSHINE BRYSON Admitting Unavailable SAMAN, DR ZAKIYA Moralez Primary Care Unavailable PRAVIN HODEGS Attending Unavailable PRAVIN HODGES Admitting Unavailable SAMAN, DR ZAKIYA Moralez Primary Care Unavailable SUNSHINE BRYSON Attending Unavailable SUNSHINE BRYSON Admitting Unavailable MISC, DR ALVAREZ Consulting Unavailable SAMAN, DR ZAKIYA Moralez Primary Care Unavailable HAL, DR PERLA Attending Unavailable HAL, DR PERLA Admitting Unavailable SAMAN, DR ZAKIYA Moralez Primary Care Unavailable NEEL LANDEROS Attending Unavailable NEEL LANDEROS Admitting Unavailable SAMAN, DR ZAKIYA Moralez Primary Care Unavailable KAREN, SUNSHINE Vidal Attending Unavailable HIGHLJOCE, SUNSHINE Vidal Admitting Unavailable SAMAN, DR ZAKIYA Moralez Primary Care Unavailable HIGHLJOCE, SUNSHINE Vidal Attending Unavailable HIGHLANDER, PETER Marcy Admitting Unavailable SAMAN, DR ZAKIYA Moralez Primary Care Unavailable HIGHLJOCE, SUNSHINE Vidal Attending Unavailable HIGHLJOCE, SUNSHINE Vidal Admitting Unavailable Highljoce, DPM Sunshine Vidal Attending Provider [phone] Obermeysadaf, SURFACE HYDROLOGIST-C Ann Worrell Attending Provider Sunshine Bryson Admitting Unavailable Highljoce, Sunshine Vidal Attending Unavailable Obermeyer, Ann L Attending Unavailable Obermeyer, Ann L Admitting Unavailable Obermeyer, Ann L Attending Unavailable Obermeyer, Ann L Admitting Unavailable Preethi, Ann L Primary Care Physician [phone] Preethi, ESCROW AGENT Ann L Attending Unavailable Preethi, ESCROW AGENT Ann L Attending Unavailable Preethi, ESCROW AGENT Ann L Attending Unavailable Preethi, ESCROW AGENT Ann L Attending Unavailable Preethi, ESCROW AGENT Ann L Attending Unavailable Preethi, ESCROW AGENT Ann L Attending Unavailable Preethi, ESCROW AGENT Ann L Attending Unavailable Preethi, ESCROW AGENT Ann L Admitting Unavailable Preethi, ESCROW AGENT Ann L Attending Unavailable Preethi, ESCROW AGENT Ann L Admitting Unavailable Preethi, ESCROW AGENT Ann L Attending Unavailable Preethi, ESCROW AGENT Ann L Admitting Unavailable Preethi, ESCROW AGENT Ann L Attending Unavailable Preethi, ESCROW AGENT Ann L Attending Unavailable Preethi, ESCROW AGENT Ann L Attending Unavailable Preethi, ESCROW AGENT Ann L Attending Unavailable Preethi, ESCROW AGENT Ann L Attending Unavailable Preethi, ESCROW AGENT Ann L Attending Unavailable Preethi, ESCROW AGENT Ann L Attending Unavailable Allergies Allergy Classification Reported Allergen(s) Allergy Type Date of Onset Reaction(s) Facility (8 sources) Amoxicillin / Clavulanate; Translations: [AUGMENTIN] Drug Allergy 09-05-19 19 Illness (finding) [facility] (5 sources) Calcium Channel Blockers; Translations: [calcium channel blockers] Drug allergy (disorder) 05-27-20 18 tachycardia [facility] (7 sources) Contrast media; Translations: [red dye] Food allergy (disorder) 01-20-20 17 insomnia [facility] (1 source) dilTIAZem; Translations: [DILTIAZEM HCL] Drug Allergy 09-12-19 19 [facility] (11 sources) Latex; Translations: [LATEX] Propensity to adverse reactions (disorder) 05-31-20 17 Unknown, Unknown Reaction [facility] (5 sources) Sulfamethoxazole / Trimethoprim; Translations: [Bactrim] Drug Allergy 05-08-20 18 [facility] (7 sources) Vancomycin; Translations: [vancomycin] Drug Allergy 05-08-20 18 Unknown Reaction [facility] (6 sources) Sulfamethoxazole / Trimethoprim; Translations: [sulfamethoxazole-t rimethoprim] Drug Allergy bloody stool, Unknown [facility] Other (6 sources) Vancomycin; Translations: [vancomycin] Drug Allergy itching, Unknown [facility] Other (2 sources) Amoxicillin / Clavulanate Drug Allergy Unknown [facility] Other (4 sources) Ciprofloxacin Drug Allergy 09-20-19 24 Unknown, Unknown Reaction [facility] (6 sources) Codeine; Translations: [codeine] Drug Allergy 09-20-19 24 Unknown, Unknown Reaction [facility] (4 sources) levoFLOXacin Drug Allergy 09-20-19 24 Unknown, Unknown Reaction [facility] (2 sources) Calcium Channel Antagonists Drug allergy Unknown [facility] Other (2 sources) cefdinir Drug Allergy 08-21-19 22 [facility] Rep[facility] (2 sources) Ciprofloxacin Drug Allergy [facility] Rep[facility] (1 source) Codeine Drug Allergy 04-07-20 14 [facility] Rep[facility] (2 sources) levoFLOXacin Drug Allergy [facility] Rep[facility] (2 sources) Calcium Channel Blocking Agents-Benzothiazep gertrudis Drug allergy (disorder) 02-23-20 16 [facility] Rep[facility] (3 sources) Amoxicillin; Translations: [amoxicillin] Drug Allergy 09-20-19 [address] Unknown [address] [facility] (3 sources) Clavulanate; Translations: [clavulanic acid] Drug Allergy 09-20-[address] [facility] (3 sources) Sulfamethoxazole; Translations: [sulfamethoxazole] Drug Allergy 09-20-[address] [facility] (3 sources) Trimethoprim; Translations: [trimethoprim] Drug Allergy 09-20-[address] [facility] (1 source) Ciprofloxacin Drug Allergy 09-20-[address] [facility] Repository (1 source) Codeine Drug Allergy 09-20-[address] [facility] Repository (1 source) levoFLOXacin Drug Allergy 09-20-[address] [facility] Repository (1 source) Vancomycin Drug Allergy 09-20-[address] [facility] Repository (2 sources) Calcium Channel Blockers; Translations: [calcium channel blockers] Drug allergy tachycardia [facility] Medications Current Medications Medication Drug Class(es) Dates Sig (Normalized) Sig (Original) amitriptyline hydrochloride 50 mg oral tablet (1 source) Tricyclic Antidepressant Start: 01-10-2022 take 1 tablet by mouth once daily at bedtime amitriptyline 50 mg Tab 50 mg = 1 tab(s), Oral, Once a day (at bedtime), # 30 tab(s), Refills(s) 3, Pharmacy: [facility]/pharmacy #[id number], 160, cm, 07/31/20 7:46:00 EST, Height/Length Dosing, 145, kg, 07/31/20 7:46:00 EST, Weight Dosing Start Date: 01/10/22 Status: Ordered atenolol 50 mg oral tablet (6 sources) beta-Adrenergic Elliott Start: 12-25-2023 take 1 tablet by mouth once daily atenolol 50 mg Tab 50 mg, Oral, Daily, # 90 tab(s), Refills(s) 3, Pharmacy: [facility]/pharmacy #[id number], 157, cm, 11/14/23 14:07:00 EDT, Height/Length Dosing Start Date: 12/25/23 Status: Ordered Quantity: 90.0 Unit: tab(s) Repeat number: 4 Start: 11-28-2021 take 1 tablet by hong th once daily atenolol 50 mg Tab 50 mg, Oral, Daily, # 90 tab(s), Refills(s) 0, Pharmacy: [facility]/pharmacy #[id number], 160, cm, 07/31/20 7:46:00 EST, Height/Length Dosing, 145, kg, 07/31/20 7:46:00 EST, Weight Dosing Start Date: 11/28/21 Status: Ordered take 0.5 tablet by m outh once daily Atenolol 25 MG 1/2 tablet Orally Once [...] q12hr, # 20 cap(s), Refills(s) 0, Pharmacy: [facility]/pharmacy #[id number], 160, cm, 07/31/20 7:46:00 EST, Height/Length Dosing, 145, kg, 07/31/20 7:46:00 EST, Weight Dosing Start Date: 11/29/20 Status: Ordered Colace (3 sources) Start: 01-10-2022 Colace Oral, B ID, Refills(s) 0 Start Date: 01/10/22 Status: Ordered take 1 capsule by [facility] every twenty-four hours Colace 100 MG 1 capsule as needed Orally Once a day Active doxycycline hyclate 100 mg oral capsule (1 source) Tetracycline-class Drug Start: 04-07-2021 take 1 capsule by mouth twice daily doxycycline hyclate 100 mg Cap 100 mg = 1 cap(s), Oral, BID, # 20 cap(s), Refills(s) 0, Pharmacy: [facility]/pharmacy #[id number], 160, cm, 07/31/20 7:46:00 EST, [...] mg / triamterene 37.5 mg oral tablet (4 sources) Potassium-sparing Diuretic, Thiazide Diuretic Start: 01-25-2024 take 1 tablet by mouth once daily hydrochlorothiaz jim-triamterene 25 mg-37.5 mg Tab 1 tab(s), Oral, Daily, 90 tab(s), [facility](s) 3[id number], cm, 11/14/23 14:07:00 EDT, Height/Length Dosing Start Date: 01/25/24 Status: Ordered Quantity: 90.0 Unit: tab(s) Repeat number: 4 Start: 12-23-2021 take 1 tablet by mouth once daily hydrochlorothiazide-triamterene 25 mg-37 .5 mg Tab 1 tab(s), Oral, Daily, 30 tab(s), Refill(s) 5, [id number], cm, 07/31/20 7:46:00 EST, Height/Length Dosing, 145, kg, 07/31/20 7:46:00 EST, Weight Dosing Start Date: 12/23/21 Status: Ordered hydrOXYzine pamoate 25 mg oral capsule (4 sources) Antihistamine Start: 09-01-2024 take 1 capsule by mouth four times daily as needed for anxiety hydrOXYzine pamoate 25 mg Cap See Instructions, TAKE 1 CAPSULE BY MOUTH 4 TIMES A DAY NEEDED FOR ANXIETY, # 40 cap(s), Refills(s) 2, Pharmacy: [facility] [id number], 157, cm, 11/14/23 14:07:00 EDT, Height/Length Dosing Start Date: 09/01/24 Status: Ordered Quantity: 40.0 Unit: cap(s) Repeat number: 1 Start: 07-01-2021 take 1 tablet by hong th four times daily as needed for anxiety hydrOXYzine hydrochloride 25 mg Tab 25 mg = 1 tab(s), Oral, QID, PRN for anxiety, # 40 tab(s), Refills(s) 2, [id number] 160, cm, 07/31/20 7:46:00 EST, Height/Length [...] Once a day Active multivitamin with minerals (3 sources) Start: 01-10-2022 multivitamin w ith minerals Refill(s) 0 Start Date: 01/10/22 Status: Ordered Repeat number: 1 Start: 01-10-2022 multivitamin w ith minerals Refill(s) 0 Start Date: 01/10/22 Status: Ordered ondansetron 4 mg oral tablet (2 sources) Serotonin-3 Receptor Antagonist Start: 09-01-2024 take 1 tablet by mouth twice daily as needed for nausea ondansetron 4 mg Tab See Instructions, TAKE 1 TABLET BY MOUTH TWICE A DAY NEEDED FOR NAUSEA/VOMITING, # 30 tab(s), Refills(s) 0, Pharmacy: [facility] STORE [id number], 157, cm, 11/14/23 14:07:00 EDT, Height/Length Dosing Start Date: 09/01/24 Status: Ordered Quantity: 30.0 Unit: tab(s) Repeat number: 1 oxyCODONE hydrochloride 5 mg oral tablet (2 sources) Opioid Agonist take 1 tablet by mouth every six hours oxyCODONE HCl 5 MG 1 tablet as needed Orally every 6 hrs Active predniSONE 5 mg oral tablet (3 sources) Start: 11-14-2023 take 2 tablets by mouth once daily in the morning predniSONE 5 mg Tab See Instructions, TAKE 2 BY MOUTH EVERY DAY IN THE MORNING, # 60 tab(s), Refills(s) 0, Pharmacy: [facility]/pharmacy #[id number], 157, cm, 11/14/23 14:07:00 EDT, Height/Length Dosing Start Date: 11/14/23 Status: Ordered Quantity: 60.0 Unit: tab(s) Repeat number: 1 Start: 01-10-2022 take 3 tablets by mo uth once daily predniSONE 5 mg Tab 15 mg = 3 tab(s), Oral, Daily, # 30 tab(s), Refills(s) 0 Start Date: 01/10/22 Status: Ordered SITagliptin 50 mg oral tablet (2 sources) Dipeptidyl Peptidase 4 Inhibitor Start: 12-19-2023 take 1 tablet by mouth once daily Januvia 50 mg Tab 50 mg = 1 tab(s), Oral, Daily, # 90 tab(s), Refills(s) 1, Pharmacy: [facility]/pharmacy #[id number], 157, cm, 11/14/23 14:07:00 EDT, Height/Length Dosing Start Date: 12/19/23 Status: Ordered Quantity: 90.0 Unit: tab(s) Repeat number: 2 traMADol hydrochloride 50 mg oral tablet (3 sources) Opioid Agonist Start: 10-01-2024 take 1-2 tablets by mouth twice daily as needed traMADOL 50 mg Tab TAKE 1 TO 2 TABLETS BY MOUTH TWICE DAILY NEEDED Start Date: 10/01/24 Status: Ordered Repeat number: 1 Start: 01-10-2022 take 1 tablet by hong twice daily as needed tramadol 50 mg oral tablet TAKE 1 TABLET BY MOUTH TWICE A DAY NEEDED Start Date: 01/10/22 Status: Ordered traZODone hydrochloride 100 mg oral tablet (6 sources) Serotonin Reuptake Inhibitor Start: 08-06-2024 take 1 tablet by mouth once daily at bedtime traZODONE 100 mg Tab See Instructions, TAKE 1 TABLET BY MOUTH EVERYDAY AT BEDTIME, # 90 tab(s), Refills(s) 1, Pharmacy: [facility] ST[id number], 157, cm, 11/14/23 14:07:00 EDT, Height/Length Dosing Start Date: 08/06/24 Status: Ordered Quantity: 90.0 Unit: tab(s) Repeat number: 1 Start: 11-11-2021 take 0.5 tablet by m outh once daily at bedtime traZODONE 100 mg Tab 0.5 tab, Oral, Once a day (at bedtime), # 45 EA, Refills(s) 1, Pharmacy: [facility]/pharmacy #[id number], 160, cm, 07/31/20 7:46:00 EST, Height/Length Dosing, 145, kg, 07/31/20 7:46:00 EST, Weight Dosing Start Date: 11/11/21 Status: Ordered Start: 11-11-2021 take 1 tablet by hong th once daily at bedtime traZODONE 100 mg Tab 100 mg = 1 tab(s), Oral, Once a day (at bedtime), # 90 tab(s), Refills(s) 1, [id number] 160, cm, 07/31/20 7:46:00 EST, Height/Length Dosing, 145, kg, 07/31/20 7:46:00 EST, Weight Dosing Start Date: 11/11/21 Status: Ordered traZODone HCl Ac tive Triamterene (2 sources) Potassium-sparing Diuretic Triam terene Active Problems Active Problems Problem Classification Problem Date Documented Da te Episodic/Chronic Abdominal hernia (2 sources) Hernia of abdominal cavity 10-01-2024 Episodic Abdominal pain (4 sources) Abdominal pain; Translations: [Right upper quadrant pain] 09-21-2021 Episodic Anxiety disorders (4 sources) Generalized anxiety disorder 12-09-2019 Chronic Biliary tract disease (2 sources) Dyskinesia of gallbladder 11-29-2022 Episodic Chronic ulcer of skin (12 sources) Non-pressure chronic ulcer of right ankle with fat layer exposed; Translations: [Non-pressure chronic ulcer of other part of right foot limited to breakdown of skin] Onset: 02-17-2022 Chronic Diabetes mellitus without complication (2 sources) Type 2 diabetes mellitus 10-01-2024 Chronic Diabetes mellitus without complication (2 sources) High hemoglobin A1c level 11-14-2023 Episodic Diverticulosis and diverticulitis (5 sources) Diverticulitis; Translations: [Diverticulitis of intestine, part unspecified, with perforation and abscess without bleeding] Onset: 09-21-2022 02-26-2017 Chronic Essential hypertension (8 sources) Hypertensive disorder 02-26-2017 Chronic Headache; including migraine (2 sources) Headache 07-20-2020 Episodic Infective arthritis and osteomyelitis (except that caused by tuberculosis or sexually transmitted disease) (2 sources) Osteomyelitis 10-01-2024 Chronic Nausea and vomiting (2 sources) Nausea 07-20-2020 [...] PERIPHERAL] Onset: 09-21-2022 Episodic Other gastrointestinal disorders (4 sources) Irritable bowel syndrome 02-26-2017 Chronic Other gastrointestinal disorders (2 sources) Constipation 09-21-2021 Episodic Other inflammatory condition of skin (2 sources) Pruritus of skin 11-29-2022 Episodic Other non-traumatic joint disorders (1 source) Other specified arthritis, unspecified site; Translations: [OTHER SPECIFIED ARTHRITIS UNS SITE] Onset: 07-31-2022 Chronic Other nutritional; endocrine; and metabolic disorders (4 sources) Morbid obesity 12-26-2021 Chronic Comment on above: Added per Dr. Davison 12/23/2021 query response. 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, unspecified] Onset: 08-17-2022 12-09-2019 Chronic Skin and subcutaneous tissue infections (5 sources) Pyoderma gangrenosum; Translations: [PYODERMA GANGRENOSUM] Onset: 08-14-2022 Episodic Unclassified (2 sources) Long-term current use of steroid 11-14-2023 Unclassified (4 sources) Patient encounter status 05-30-2023 Past or Other Problems Problem Classification Problem Date Documented Da te Episodic/Chronic Open wounds of extremities (1 source) Unspecified open wound, left lower leg, initial encounter Onset: 09-01-2021 Resolved: 09-01-2021 Episodic Other aftercare (1 source) 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 Onset: 09-01-2021 Resolved: 09-01-2021 Episodic Other aftercare (1 source) Other 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 I sent in macrobid for her Results: Date Result Type Ind Result Name 10/01/2024 MBO POS Urine Culture Pt notified Normal [facility] Reminders Reminders From: Ann Glasgow To: B - Clinical; Sent: 10/06/2024 12:08:57 EDT Show up: 10/06/2024 12:09:00 EDT Subject: Ambulatory Reminder Due Date/Time: 10/07/2024 12:08:00 EDT HGBA1C is 7.1. cholesterol is also elevated. follow up in 3 months for repeat HGBA1C Results: Date Result Name Ind Value Ref Range 10/01/2024 15:16 Glucose Lvl 132 mg/dL (55 - 199) 10/01/2024 15:16 BUN 20 mg/dL (5 - 21) 10/01/2024 15:16 Creatinine 0.7 mg/dL (0.5 - 1.3) 10/01/2024 15:16 eGFR 98 mL/min/1.73 m2 (>=59 - ) 10/01/2024 15:16 BUN/Creat Ratio (H) 29 (10 - 20) 10/01/2024 15:16 Sodium Lvl 138 mmol/L (135 - 145) 10/01/2024 15:16 Potassium Lvl 4.6 mmol/L (3.5 - 5.3) 10/01/2024 15:16 Chloride (L) 98 mmol/L (101 - 111) 10/01/2024 15:16 CO2 29 mmol/L (21 - 31) 10/01/2024 15:16 AGAP 16 mEq/L (6 - 16) 10/01/2024 15:16 Calcium Lvl 9.5 mg/dL (8.9 - 11.1) 10/01/2024 15:16 Alk Phos 68 Int._Unit/L (21 - 98) 10/01/2024 15:16 ALT 13 Int._Unit/L (6 - 46) 10/01/2024 15:16 AST 23 Int._Unit/L (5 - 43) 10/01/2024 15:16 Total Protein 7.3 gm/dL (6.0 - 7.8) 10/01/2024 15:16 Albumin Lvl 3.8 gm/dL (3.3 - 5.0) 10/01/2024 15:16 Globulin 3.5 gm/dL (1.4 - 4.0) 10/01/2024 15:16 A/G Ratio 1.1 (1.1 - 2.2) 10/01/2024 15:16 Bili Total 0.5 mg/dL (0.0 - 1.1) 10/01/2024 15:16 Hgb A1C % (H) 7.1 % ( - <=5.9) 10/01/2024 15:16 Chol (H) 209 mg/dL (120 - 200) 10/01/2024 15:16 Trig (H) 159 mg/dL ( - <=149) 10/01/2024 15:16 HDL 59 mg/dL 10/01/2024 15:16 LDL Direct (H) 130 mg/dL ( - <=129) 10/01/2024 15:16 VLDL 32 mg/dL (7 - 40) 10/01/2024 15:16 TSH 1.04 mcIU/mL (0.34 - 5.60) pt notified Normal [facility] Reminders Reminders From: Ann Glasgow To: B - Clinical; Sent: 10/06/2024 12:08:07 EDT Show up: 10/06/2024 12:08:00 EDT Subject: Ambulatory Reminder Due Date/Time: 10/07/2024 12:07:00 EDT urine culture positive for e coli. I sent in macrobid for her Results: Date Result Type Ind Result Name 10/01/2024 MBO POS Urine Culture Normal [facility] C Urineon 10-04-2024 Bacteria identified Cx Nom (U) Microbiology PROCEDURE: Urine Culture [R1] SOURCE: U CleanCatch BODY SITE: COLLECTED DATE/TIME: 10/01/2024 15:36 EDT RECEIVED DATE/TIME: 10/02/2024 17:43 EDT START DATE/TIME: 10/02/2024 17:43 EDT FREE TEXT SOURCE: Ann Glasgow Jodi L FINAL REPORTS Final Report [] Verified Date/Time: 10/04/2024 09:41 EDT >100,000 cfu/ml Escherichia coli SUSCEPTIBILITY RESULTS __ LEGEND: S=Susceptible, N/R=Not Reported, Blank=Data not available, or drug not advisable or tested, I=Intermediate, ESBL=Extended spectrum beta-lactamase, R=Resistant, TFG=Thymidine-dependen t strain, TIERRA=Beta-lactamase positive, MICAH=mcg/m;(mg/L), S*=Predicted susceptible interp, R*=Predicted resistant interp EC Antibiotic MICAH Dilutn MCIAH Interp Ampicillin <=8 S Ampicillin/ <=8/4 S Sulbactam Aztreonam <=4 S Cefazolin <=2 S Cefepime <=2 S Ceftazidime <=1 S Ceftazidime/ <=8 S Avibactam Ceftriaxone <=1 S Cefuroxime <=4 S Ciprofloxacin <=0.25 S Ertapenem <=0.5 S Gentamicin <=2 S Levofloxacin <=0.5 S Meropenem <=1 S Nitrofurantoin <=32 S Piperacillin/ <=8 S Tazobactam Tetracycline >8 R Tobramycin <=2 S Trimethoprim/ <=2/38 S Sulfa Performing Locations R1: This test was performed at: [facility], [address] [place] [address], [phone] , [place], Normal [facility] Comment on above: Performed By: #### [id number] #### [facility] [address] [place] [id number] CMPon 10-02-2024 Albumin [Mass/Vol] 3.8 g/dL Normal 3.3-5.0 [facility] Comment on above: Performed By: #### 2 [id number] #### [facility] [address] [place] [id number] Albumin/Globulin (S) [Mass conc ratio] 1.1 Normal 1.1-2.2 [facility] Comment on above: Performed By: #### 2 [id number] #### [facility] [address] [place] [id number] ALP [Catalytic activity/Vol] 68 Int._Unit/L Normal 21-98 [facility] Comment on above: Performed By: #### [id number] #### [facility] [address] [place] [address], [place] [address] ALT No additional P-5'-P [Catalytic activity/Vol] 13 Int._Unit/L Normal 6-46 [facility] Comment on above: Performed By: #### 2 [id number] #### [facility] [address] [place] [address] Anion gap [Moles/Vol] 16 mmol/L Normal 6-16 [facility] Comment on above: Performed By: #### 2 [id number] #### [facility] [address] [place] [address] AST [Catalytic activity/Vol] 23 Int._Unit/L Normal 5-43 [facility] Comment on above: Performed By: #### 2 [id number] #### [facility] [address] [place] [address] Bilirubin [Mass/Vol] 0.5 mg/dL Normal 0.0-1.1 [facility] Comment on above: Performed By: #### 2 [id number] #### [facility] [address] [place] [address] Calcium [Mass/Vol] 9.5 mg/dL Normal 8.9-11.1 [facility] Comment on above: Performed By: #### 2 [id number] #### [facility] [address] [place] [address] Chloride [Moles/Vol] 98 mmol/L Low 101-111 [facility] Comment on above: Performed By: #### 2 [id number] #### [facility] [address] [place] [address] CO2 [Moles/Vol] 29 mmol/L Normal 21-31 [facility] Comment on above: Performed By: #### 2 [id number] #### [facility] [address], [place] [address] Creatinine [Mass/Vol] 0.7 mg/dL Normal 0.5-1.3 [facility] Comment on above: Performed By: #### 2 [id number] #### [facility] [address] [place] [address] Globulin (S) [Mass/Vol] 3.5 g/dL Normal 1.4-4.0 [facility] Comment on above: Performed By: #### 2 [id number] #### [facility] [address] [place] [address] Glucose [Mass/Vol] 132 mg/dL Normal 55-199 [facility] Comment on above: Performed By: #### 2 [id number] #### [facility] [address] [place] [address] Potassium [Moles/Vol] 4.6 mmol/L Normal 3.5-5.3 [facility] Comment on above: Performed By: #### 2 [id number] #### [facility] [address] [place] [address] Protein [Mass/Vol] 7.3 g/dL Normal 6.0-7.8 [facility] Comment on above: Performed By: #### 2 [id number] #### [facility] [address] [place] [address] Sodium [Moles/Vol] 138 mmol/L Normal 135-145 [facility] Comment on above: Performed By: #### 2 [id number] #### [facility] [address] [place] [address] Urea nitrogen [Mass/Vol] 20 mg/dL Normal 5-21 [facility] Comment on above: Performed By: #### 2 [id number] #### [facility] [address] [place] [address] Urea nitrogen/Creatinine [Mass ratio] 29 No Units High 10-20 [facility] Comment on above: Performed By: #### 2 [id number] #### [facility] [address] [place] [address] [id number] 10-02-2024 HbA1c (Bld) [Mass fraction] 7.1 % High <=5.9 [facility] Comment on above: Performed By: #### 7 [id number] #### [facility] [address] [place] [address] Lipid Panelon 10-02-2024 Cholesterol [Mass/Vol] 209 mg/dL High 120-200 [facility] Comment on above: Performed By: #### 2 [id number] #### [facility] [address] [place] [address] Cholesterol in HDL [Mass/Vol] 59 mg/dL Invalid Interpretation Code [facility] Comment on above: Result Comment: '>= 60 LOW RISK' '<= 40 HIGH RISK' Performed By: #### 2 [id number] #### [facility] [address] [place] [address] Cholesterol in LDL [Mass/Vol] 130 mg/dL High <=129 [facility] Comment on above: Performed By: #### 2 [id number] #### [facility] [address] [place] [address] Cholesterol in VLDL [Mass/Vol] 32 mg/dL Normal 7-40 [facility] Comment on above: Performed By: #### 2 [id number] #### [facility] [address] [place] [address] Triglyceride [Mass/Vol] 159 mg/dL High <=149 [facility] Comment on above: Performed By: #### 2 [id number] #### [facility] [address] [place] [address] TSHon 10-02-2024 TSH Qn 1.04 m[IU]/L Normal 0.34-5.60 [facility] Comment on above: Performed By: #### 2 [id number] #### [facility] [address] [place] [address] eGFRon 10-02-2024 eGFR 98 mL/min/1.73 m2 Normal >=59 [facility] Comment on above: Performed By: #### 1 [id number] #### [facility] [address] [place] [address] Ambulatory Visit Summaryon 0 10-01-2024 Ambulatory Visit Summary Ambulatory Visit Summary JARETT KEBEDE :1965 Visit Date:10/01/2024 Ambulatory Visit Instructions Your Diagnosis Type 2 diabetes mellitus Hypertension Generalized anxiety disorder Screening for hypercholesterolemia Abdominal hernia Non-smoker Your Care Team Attending Physician - Ann Glasgow Primary Care Physician - Ann Glasgow This Is Your Medications List atenolol (atenolol 50 mg Tab) hydrOXYzine (hydrOXYzine pamoate 25 mg Cap) hydrochlorothiazide-tr iamterene (hydrochlorothiazide-t riamterene 25 mg-37.5 mg Tab) multivitamin with minerals ondansetron (ondansetron 4 mg Tab) predniSONE (predniSONE 5 mg Tab) sitagliptin (Januvia 50 mg Tab) tramadol (traMADOL 50 mg Tab) trazodone (traZODONE 100 mg Tab) Procedures Performed Appendectomy (2017), Pleural effusion (2016), hysterectomy (1999), Colon part, Ileostomy, Adrian - Kay drain, Pyoderma, Surgery. Discharge Vitals Heart Rate (Peripheral) 90 Respiratory Rate 18 Blood Pressure 136/88 Height 157.0 cm Height 62 in What to do next Scheduled Follow-Up Appointments 2024 1:40 PM EDT Where: [place] [id number]- Medications What How Much When Instructions Unchanged atenolol (atenolol 50 mg Tab) 50 Milligram By Mouth Every day Unchanged hydrochlorothiazide-tr iamterene (hydrochlorothiazide-t riamterene 25 mg-37.5 mg Tab) 1 Tablets By Mouth Every day Unchanged hydrOXYzine (hydrOXYzine pamoate 25 mg Cap) See instructions TAKE 1 CAPSULE BY MOUTH 4 TIMES A DAY NEEDED FOR ANXIETY Unchanged multivitamin with minerals Unchanged ondansetron (ondansetron 4 mg Tab) See instructions TAKE 1 TABLET BY MOUTH TWICE A DAY NEEDED FOR NAUSEA/ VOMITING Unchanged predniSONE (predniSONE 5 mg Tab) See instructions TAKE 2 BY MOUTH EVERY DAY IN THE MORNING Unchanged sitagliptin (Januvia 50 mg Tab) 1 Tablets By Mouth Every day Unchanged tramadol (traMADOL 50 mg Tab) TAKE 1 TO 2 TABLETS BY MOUTH TWICE DAILY NEEDED Unchanged trazodone (traZODONE 100 mg Tab) See instructions TAKE 1 TABLET BY MOUTH EVERYDAY AT BEDTIME Allergies Augmentin (Sickness) Bactrim (bloody stool) Latex Red Dye (insomnia) calcium channel blockers (tachycardia) vancomycin (itching) Problems Ongoing - Any problem that you are currently receiving treatment for. 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 Diverticulitis Hypertension IBS (irritable bowel syndrome) Patient Survey You may receive a survey via text or e-mail asking about your office visit. Please share your experience with us by completing your survey. We appreciate your feedback and thank you for choosing us for your care. Normal [facility] CHEMISTRYOrdered By: SYSTEM SYSTEM on 10-01-2024 Albumin [Mass/Vol] 3.8 g/dL Normal 3.3 - 5.0 gm/dL [facility] Albumin/Globulin [Mass ratio] 1.1 {ratio} Normal 1.1 - 2.2 [facility] ALP [Catalytic activity/Vol] 68 [iU]/d Normal 21 - 98 Int._Unit/L [facility] ALT No additional P-5'-P [Catalytic activity/Vol] 13 [iU]/d Normal 6 - 46 Int._Unit/L [facility] Anion gap [Moles/Vol] 16 mmol/L Normal 6 - 16 mEq/L R [facility] AST [Catalytic activity/Vol] 23 [iU]/d Normal 5 - 43 Int._Unit/L [facility] Bilirubin [Mass/Vol] 0.5 mg/dL Normal 0.0 - 1 .1 mg/dL [facility] Calcium [Mass/Vol] 9.5 mg/dL Normal 8.9 - 11. 1 mg/dL [facility] Chloride [Moles/Vol] 98 mmol/L Low 101 - 1 11 mmol/L [facility] Cholesterol [Mass/Vol] 209 mg/dL High 120 - 200 mg/dL [facility] Cholesterol in HDL [Mass/Vol] 59 mg/dL Invalid Interpretation Code [facility] Comment on above: Result Comment: '>= 60 LOW RISK' '<= 40 HIGH RISK' Cholesterol in LDL [Mass/Vol] 130 mg/dL High <=129mg/dL [facility] Cholesterol in VLDL [Mass/Vol] 32 mg/dL Normal 7 - 40 mg/dL [facility] CO2 [Moles/Vol] 29 mmol/L Normal 21 - 31 mmol/L [facility] Creatinine [Mass/Vol] 0.7 mg/dL Normal 0.5 - 1.3 mg/dL [facility] eGFR 98 mL/min/1.73 m2 Normal >=59mL/min /1.7 3 m2 [facility] Globulin (S) [Mass/Vol] 3.5 g/dL Normal 1.4 - 4.0 gm/dL [facility] Glucose [Mass/Vol] 132 mg/dL Normal 55 - 199 mg/dL [facility] Potassium [Moles/Vol] 4.6 mmol/L Normal 3.5 - 5.3 mmol/L [facility] Protein [Mass/Vol] 7.3 g/dL Normal 6.0 - 7.8 gm/dL [facility] Sodium [Moles/Vol] 138 mmol/L Normal 135 - 145 mmol/L [facility] Triglyceride [Mass/Vol] 159 mg/dL High <=149mg/dL [facility] TSH Qn 1.04 m[IU]/L Normal 0.34 - 5.60 mcIU/mL [facility] Urea nitrogen [Mass/Vol] 20 mg/dL Normal 5 - 21 mg/dL [facility] Urea nitrogen/Creatinine [Mass ratio] 29 mg/mg High 10 - 20 [facility] CHEMISTRYOrdered By: Magy Thurston on 10-01-2024 HbA1c (Bld) [Mass fraction] 7.1 % High <=5.9% [facility] [place] [facility] Family Medicine Office/Clini c Noteon 10-01-2024 Family Medicine Office/Clinic Note Family Medicine Office/Clinic Note HPI Staff Jarett is a 58 year old female presenting for medication refill Patient is here for follow up on hypertension. How often are you checking your blood pressure? none What are your average readings? _ Do you have any of the following symptoms? Chest Pain? no Palpitations? no HUSTON/SOB? no Headache? no Peripheral Edema? yes if standing for long periods of time Light Headed? no Follow up for Mental Status: Medication adherence- Yes, takes medication as prescribed Medication refill needed: _ Suicidal thoughts-Not at this time Most recent DEDRICK: 10 Most recent PHQ: Pt stopped taking Januvia 3 weeks ago due to continued to make her nauseated Labs? no refills needed History of Present Illness pt presents today for follow up. Has not been seen since last November. states she does not need refills Review of Systems PHQ Score Initial Depression Screen Score: 4 SCORE Physical Exam Vitals & Measurements HR: 90(Peripheral) RR: 18 BP: 136/88 SpO2: 99% HT: 62 in HT: 157.0 cm General: alert, no acute distress ENMT: oral mucosa moist, no pharyngeal erythema or exudate Cardiovascular: regular rate and rhythm, normal peripheral perfusion Respiratory: Lungs CTA, respirations non labored Extremities: no deformity, no trauma Neurological: oriented x 4, LOC appropriate for age, CN II-XII intact, motor strength equal & normal bilaterally, speech normal Assessment/Plan 1. Type 2 diabetes mellitus (E11.9: Type 2 diabetes mellitus without complications) pt is no longer taking diabetes medication. states it makes her sick to her stomach. unable to obtain BMI because pt refused to get weight in office today. will check HGBA1C in office today. Ordered: Comprehensive Metabolic Panel Drug Screen POC 93063 HgbA1c Lab Specimen Collect [id number] Lipid Panel Thyroid Stimulating Hormone 2. Hypertension (I10: Essential (primary) hypertension) BP at goal. does not need refills at this time Ordered: Comprehensive Metabolic Panel Drug Screen POC 46943 HgbA1c Lab Specimen Collect 35107 Lipid Panel Thyroid Stimulating Hormone 3. Generalized anxiety disorder (F41.1: Generalized anxiety disorder) does not need refills at this time Ordered: Comprehensive Metabolic Panel HgbA1c Lab Specimen Collect 38878 Lipid Panel Thyroid Stimulating Hormone 4. Screening for hypercholesterolemia (Z13.220: Encounter for screening for lipoid disorders) lipid panel drawn in office today Ordered: Comprehensive Metabolic Panel Drug Screen POC 76459 HgbA1c Lab Specimen Collect 61140 Lipid Panel Thyroid Stimulating Hormone 5. Abdominal hernia (K46.9: Unspecified abdominal hernia without obstruction or gangrene) pt has had abdominal hernia for about 7 years. 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 pt desires to go to [facility] for scan. she will phone in fax number for the surgeon so we can fax the results to them. 6. 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 Baldwin 7. Morbid obesity (E66.01: Morbid (severe) obesity due to excess calories) pt refused to get on scale at office today 8. 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 Medications atenolol 50 mg Tab, 50 mg, Oral, Daily, 3 refills hydrochlorothiazide-tr iamterene 25 mg-37.5 mg Tab, 1 tab(s), Oral, Daily, 3 refills hydrOXYzine pamoate 25 mg Cap, See Instructions Januvia 50 mg Tab, 50 mg= 1 tab(s), Oral, Daily, 1 refills multivitamin with minerals ondansetron 4 mg Tab, See Instructions predniSONE 5 mg Tab, See Instructions traMADOL 50 mg Tab traZODONE 100 mg Tab, See Instructions Allergies Augmentin (Sickness) Bactrim (bloody stool) Latex Red Dye (insomnia) calcium channel blockers (tachycardia) vancomycin (itching) Social History Alcohol - Denies Al (more content not included)... Normal [facility] Comment on above: Result Comment: Elec tronically Signed By: Ann Glasgow\.br\Date and Time Signed: 10/01/24 15:29 EDT Complete Blood Count Auto Di ffon 06-25-2024 Basophils (Bld) [#/Vol] 0.1 10*3/uL Normal 0.0-0.2 [facility] Comment on above: Performed By: #### C BC, ESR, CMP #### [facility] [address] Basophils/100 WBC (Bld) 0.6 % Normal . [facility] Comment on above: Performed By: #### C BC, ESR, CMP #### [facility] [address] Eosinophils (Bld) [#/Vol] 0.1 10*3/uL Normal 0.0-0.45 [facility] Comment on above: Performed By: #### C BC, ESR, CMP #### [facility] [address] Eosinophils/100 WBC (Bld) 0.9 % Normal . [facility] Comment on above: Performed By: #### C BC, ESR, CMP #### [address] Erythrocyte distribution width (RBC) [Ratio] 14.6 % Normal 11.9-15.3 [facility] Comment on above: Performed By: #### C BC, ESR, CMP #### [address] Hematocrit (Bld) [Volume fraction] 47.8 % High 34.0-46.4 [facility] Comment on above: Performed By: #### C BC, ESR, CMP #### [address] Hemoglobin (Bld) [Mass/Vol] 15.8 g/dL High 11.8-15.4 [facility] Comment on above: Performed By: #### C BC, ESR, CMP #### [place] [address] [place] Lymphocytes (Bld) [#/Vol] 1.6 10*3/uL Normal 1.00-4.8 [facility] Comment on above: Performed By: #### C BC, ESR, CMP #### [place] [address] [place] Lymphocytes/100 WBC (Bld) 17.0 % Normal . [facility] Comment on above: Performed By: #### C BC, ESR, CMP #### [address] MCH (RBC) [Entitic mass] 29.2 pg Normal 24.7-34.3 [facility] Comment on above: Performed By: #### C BC, ESR, CMP #### [address] MCV (RBC) [Entitic vol] 88.0 fL Normal 80-100 [facility] Comment on above: Performed By: #### C BC, ESR, CMP #### [address] Mean Corpuscular HGB Conc 33.1 g/dL Normal 32.0-35.0 [facility] Comment on above: Performed By: #### C BC, ESR, CMP #### [address] Monocytes (Bld) [#/Vol] 0.4 10*3/uL Normal 0.0-0.8 [facility] Comment on above: Performed By: #### C BC, ESR, CMP #### [address] Monocytes/100 WBC (Bld) 4.6 % Normal . [facility] Comment on above: Performed By: #### C BC, ESR, CMP #### [address] Neutrophils (Bld) [#/Vol] 7.4 10*3/uL Normal 1.8-7.7 [facility] Comment on above: Performed By: #### C BC, ESR, CMP #### [address] Neutrophils/100 WBC (Bld) 76.9 % Normal . [facility] Comment on above: Performed By: #### C BC, ESR, CMP #### [address] NRBC% 0.1 /100{WBC} Normal 0-0.5 [facility] Comment on above: Performed By: #### C BC, ESR, CMP #### [address] Platelet mean volume (Bld) [Entitic vol] 9.0 fL Normal 6.3-10.7 [facility] Comment on above: Performed By: #### C BC, ESR, CMP #### [address] Platelets (Bld) [#/Vol] 277 10*3/uL Normal 150-450 [facility] Comment on above: Performed By: #### C BC, ESR, CMP #### [address] RBC (Bld) [#/Vol] 5.44 10*6/uL High 3.60-5.00 [facility] Comment on above: Performed By: #### C BC, ESR, CMP #### [address] WBC (Bld) [#/Vol] 9.7 10*3/uL Normal 3.8-11.6 [facility] Comment on above: Performed By: #### C BC, ESR, CMP #### [address] Comprehensive Metabolic Pane chan 06-25-2024 Albumin [Mass/Vol] 3.7 g/dL Normal 3.5-5.7 [facility] Comment on above: Performed By: #### C BC, ESR, CMP #### [address] Albumin/Globulin [Mass ratio] 1.1 {ratio} Normal [facility] Comment on above: Performed By: #### C BC, ESR, CMP #### [address] ALP [Catalytic activity/Vol] 66 U/L Normal 34-104 [facility] Comment on above: Result Comment: PERF ORMED BY: [place] [address] PATHOLOGIST MACHINE DESIGNER MOHAMED M EL-FAKHARANY M.D. Performed By: #### C BC, ESR, CMP #### [facility] [address] [place] [id number] [facility] ALT [Catalytic activity/Vol] 12 U/L Normal 7-52 [facility] Comment on above: Performed By: #### C BC, ESR, CMP #### [facility] [address] Anion gap [Moles/Vol] 12.9 mmol/L Normal 6.0-15.0 [facility] Comment on above: Performed By: #### C BC, ESR, CMP #### [facility] [address] AST [Catalytic activity/Vol] 14 U/L Normal 13-39 [facility] Comment on above: Performed By: #### C BC, ESR, CMP #### [address] Bilirubin [Mass/Vol] 0.4 mg/dL Normal 0.3-1.0 [facility] Comment on above: Performed By: #### C BC, ESR, CMP #### [place] [address] [place] Calcium [Mass/Vol] 9.7 mg/dL Normal 8.6-10.3 [facility] Comment on above: Performed By: #### C BC, ESR, CMP #### [place] [address] [place] Chloride [Moles/Vol] 98 mmol/L Normal 98-107 [facility] Comment on above: Performed By: #### C BC, ESR, CMP #### [place] [address] [place] CO2 [Moles/Vol] 33.8 mmol/L High 21.0-31.0 [facility] Comment on above: Performed By: #### C BC, ESR, CMP #### [place] [address] [place] Creatinine [Mass/Vol] 0.84 mg/dL Normal 0.60-1.20 [facility] Comment on above: Performed By: #### C BC, ESR, CMP #### [facility] [address] [place] [address] [place] GFR/1.73 sq M.predicted MDRD (S/P/Bld) [Vol rate/Area] mL/min/{1.73_m2} Normal [facility] Comment on above: Performed By: #### C BC, ESR, CMP #### [facility] [address] Globulin (S) [Mass/Vol] 3.3 g/dL Normal [facility] Comment on above: Performed By: #### C BC, ESR, CMP #### [facility] [address] Glucose [Mass/Vol] 151 mg/dL High 70-100 [facility] Comment on above: Result Comment: [facility] Glucose Reference Range is dependent on time and content of last meal. Glucose of more than 200 mg/dL in a nonstressed, ambulatory subject supports the diagnosis of Diabetes Mellitus. ADA recommended reference range Performed By: #### C BC, ESR, CMP #### [address] Potassium [Moles/Vol] 4.7 mmol/L Normal 3.5-5.1 [facility] Comment on above: Performed By: #### C BC, ESR, CMP #### [address] Protein [Mass/Vol] 7.0 g/dL Normal 6.4-8.9 [facility] Comment on above: Performed By: #### C BC, ESR, CMP #### [place] [address] [place] Sodium [Moles/Vol] 140 mmol/L Normal 136-145 [facility] Comment on above: Performed By: #### C BC, ESR, CMP #### [address] Urea nitrogen [Mass/Vol] 19 mg/dL Normal 7-25 [facility] Comment on above: Performed By: #### C BC, ESR, CMP #### [address] [place] [address] [place] Erythrocyte Sedimentation Ra daysi 06-25-2024 ESR (Bld) [Velocity] 44 mm/h High 0-29 [facility] Comment on above: Result Comment: PERF ORMED BY: [place] [address] PATHOLOGIST MACHINE DESIGNER ALONZO BEAULIEU M.D. Performed By: #### C BC, ESR, CMP #### [address] Alanine aminotransferase [En zymatic activity/volume] in Serum or PlasmaOrdered By: Ann Pride on 03-20-2024 ALT [Catalytic activity/Vol] 14 U/L Normal 7-[address] [facility] Comment on above: Performed By: #### E SR, CBC, CMP #### [address] Albumin [Mass/volume] in Ser um or Plasma by Bromocresol green (BCG) dye binding methoOrdered By: Ann Pride on 03-20-2024 Albumin BCG dye [Mass/Vol] 3.6 g/dL 3.5-5.[address] [facility] Alkaline phosphatase [Enzyma tic activity/volume] in Serum or PlasmaOrdered By: Ann Pride on 03-20-2024 ALP [Catalytic activity/Vol] 66 U/L Normal 34-[address] [facility] Comment on above: Result Comment: PERF ORMED BY: [place] [address] PATHOLOGIST MACHINE DESIGNER CRYSTAL SPRING M.D. Performed By: #### E SR, CBC, CMP #### [place] [address] [place] Aspartate aminotransferase [ Enzymatic activity/volume] in Serum or PlasmaOrdered By: Ann Pride on 03-20-2024 AST [Catalytic activity/Vol] 13 U/L Normal 13-[address] [facility] Comment on above: Performed By: #### E SR, CBC, CMP #### [place] [address] [place] Automated basophil %Ordered By: Ann Pride on 03-20-2024 Basophils/100 WBC (Bld) 0.5 % Normal . [facility] Comment on above: Performed By: #### E SR, CBC, CMP #### [address] Automated basophil countOrde red By: Ann Pride on 03-20-2024 Basophils (Bld) [#/Vol] 0.0 10*3/uL Normal 0.0-0.[address] [facility] Comment on above: Performed By: #### E SR, CBC, CMP #### [address] Automated blood monocyte cou ntOrdered By: Ann Pride on 03-20-2024 Monocytes (Bld) [#/Vol] 0.7 10*3/uL Normal 0.0-0.[address] [facility] Comment on above: Performed By: #### E SR, CBC, CMP #### [address] Automated eosinophil %Ordere d By: Ann Pride on 03-20-2024 Eosinophils/100 WBC (Bld) 0.9 % Normal . [facility] Comment on above: Performed By: #### E SR, CBC, CMP #### [address] Automated eosinophil countOr dered By: Ann Pride on 03-20-2024 Eosinophils (Bld) [#/Vol] 0.1 10*3/uL Normal 0.0-0.[address] [facility] Comment on above: Performed By: #### E SR, CBC, CMP #### [address] Automated monocyte %Ordered By: Ann Pride on 03-20-2024 Monocytes/100 WBC (Bld) 7.5 % Normal . [facility] Comment on above: Performed By: #### E SR, CBC, CMP #### [address] Automated neutrophil %Ordere d By: Ann Pride on 03-20-2024 Neutrophils/100 WBC (Bld) 74.5 % Normal . [facility] Comment on above: Performed By: #### E SR, CBC, CMP #### [facility] [address] Bilirubin.total [Mass/volume ] in Serum or PlasmaOrdered By: Ann Pride on 03-20-2024 Bilirubin [Mass/Vol] 0.4 mg/dL Normal 0.3-1.0 [facility] [facility] Comment on above: Performed By: #### E SR, CBC, CMP #### [address] Calcium [Mass/volume] in Ser um or PlasmaOrdered By: Ann Pride on 03-20-2024 Calcium [Mass/Vol] 9.2 mg/dL Normal 8.6-10.3 [facility] Comment on above: Performed By: #### E SR, CBC, CMP #### [address] Carbon dioxide, total [Moles /volume] in Serum or PlasmaOrdered By: Ann Pride on 03-20-2024 CO2 [Moles/Vol] 33.2 mmol/L High 21.0-31.0 [facility] Comment on above: Performed By: #### E SR, CBC, CMP #### [facility] [address] [place] [address] [place] Chloride [Moles/volume] in S ant or PlasmaOrdered By: Ann Pride on 03-20-2024 Chloride [Moles/Vol] 100 mmol/L Normal 98-107 [facility] Comment on above: Performed By: #### E SR, CBC, CMP #### [facility] [address] [place] [address] Complete Blood Count Auto Di ffon 03-20-2024 Mean Corpuscular HGB Conc 32.9 g/dL Normal 32.0-35.0 [facility] Comment on above: Performed By: #### E SR, CBC, CMP #### [address] NRBC% 0.4 /100{WBC} Normal 0-0.5 [facility] Comment on above: Performed By: #### E SR, CBC, CMP #### [address] Comprehensive Metabolic Pane chan 03-20-2024 Albumin [Mass/Vol] 3.6 g/dL Normal 3.5-5.7 [facility] Comment on above: Performed By: #### E SR, CBC, CMP #### [address] GFR/1.73 sq M.predicted MDRD (S/P/Bld) [Vol rate/Area] mL/min/{1.73_m2} Normal [facility] Comment on above: Performed By: #### E SR, CBC, CMP #### [address] Creatinine [Mass/volume] in Serum or PlasmaOrdered By: Ann Pride on 03-20-2024 Creatinine [Mass/Vol] 0.68 mg/dL Normal 0.60-1.20 [facility] Comment on above: Performed By: #### E SR, CBC, CMP #### [address] Erythrocyte Sedimentation Ra daysi 03-20-2024 ESR (Bld) [Velocity] 35 mm/h High 0-29 [facility] Comment on above: Result Comment: PERF ORMED BY: [place] [address] PATHOLOGIST MACHINE DESIGNER CRYSTAL SPRING M.D. Performed By: #### E SR, CBC, CMP #### [address] Erythrocyte distribution wid th [Ratio] by Automated countOrdered By: Ann Pride on 03-20-2024 Erythrocyte distribution width (RBC) [Ratio] 16.3 % High 11.9-15.[address] [facility] Comment on above: Performed By: #### E SR, CBC, CMP #### [facility] [address] Erythrocyte sedimentation ra te by Photometric methodOrdered By: Ann Pride on 03-20-2024 ESR Photometric method (Bld) [Velocity] 35 mm/hr High 0-[address] [facility] Erythrocytes [#/volume] in B lood by Automated countOrdered By: Ann Pride on 03-20-2024 RBC (Bld) [#/Vol] 5.04 10*6/uL High 3.60-5.00 [facility] Comment on above: Performed By: #### E SR, CBC, CMP #### [address] Glucose [Mass/volume] in Ser um or PlasmaOrdered By: Ann Pride on 03-20-2024 Glucose [Mass/Vol] 138 mg/dL High 70-100 [facility] Comment on above: ADA recommended refe rence rangeRandom Glucose Reference Range is dependent on time and content of last meal. Glucose of more than 200 mg/dL in a nonstressed, ambulatory subject supports the diagnosis of Diabetes Mellitus. Result Comment: [place] om Glucose Reference Range is dependent on time and content of last meal. Glucose of more than 200 mg/dL in a nonstressed, ambulatory subject supports the diagnosis of Diabetes Mellitus. ADA recommended reference range Performed By: #### E SR, CBC, CMP #### [facility] [address] Hematocrit [Volume Fraction] of Blood by Automated countOrdered By: Ann Pride on 03-20-2024 Hematocrit (Bld) [Volume fraction] 44.1 % Normal 34.0-46.[address] [facility] Comment on above: Performed By: #### E SR, CBC, CMP #### [facility] [address] Hemoglobin [Mass/volume] in BloodOrdered By: Ann Pride on 03-20-2024 Hemoglobin (Bld) [Mass/Vol] 14.5 g/dL Normal 11.8-15.[address] [facility] Comment on above: Performed By: #### E SR, CBC, CMP #### [facility] [address] Leukocytes [#/volume] correc kendra for nucleated erythrocytes in Blood by Automated counOrdered By: Ann Pride on 03-20-2024 WBC corrected for nucl RBC Auto (Bld) [#/Vol] 9.2 10*3/uL 3.8-11.[address] [facility] Leukocytes [#/volume] in Blo od by Automated countOrdered By: Ann Pride on 03-20-2024 WBC (Bld) [#/Vol] 9.2 10*3/uL Normal 3.8-11.6 [facility] Comment on above: Performed By: #### E SR, CBC, CMP #### [address] Lymphocytes [#/volume] in Bl ood by Automated countOrdered By: Ann Pride on 03-20-2024 Lymphocytes (Bld) [#/Vol] 1.5 10*3/uL Normal 1.00-4.[address] [facility] Comment on above: Performed By: #### E SR, CBC, CMP #### [address] Lymphocytes/100 leukocytes i n Blood by Automated countOrdered By: Ann Pride on 03-20-2024 Lymphocytes/100 WBC (Bld) 16.6 % Normal . [facility] Comment on above: Performed By: #### E SR, CBC, CMP #### [facility] [address] [place] [address] [place] MCH [Entitic mass] by Automa kendra countOrdered By: Ann Pride on 03-20-2024 MCH (RBC) [Entitic mass] 28.8 pg Normal 24.7-34.[address] [facility] Comment on above: Performed By: #### E SR, CBC, CMP #### [address] MCHC Auto (RBC) [Mass/Vol]Or dered By: Ann Pride on 03-20-2024 MCHC (RBC) [Mass/Vol] 32.9 g/dL 32.0-35.0 [facility] MCV [Entitic volume] by Auto mated countOrdered By: Ann Pride on 03-20-2024 MCV (RBC) [Entitic vol] 87.5 fL Normal 80-[address] [facility] Comment on above: Performed By: #### E SR, CBC, CMP #### [facility] [address] [place] [address] Neutrophils [#/volume] in Bl ood by Automated countOrdered By: Ann Pride on 03-20-2024 Neutrophils (Bld) [#/Vol] 6.9 10*3/uL Normal 1.8-7.[address] [facility] Comment on above: Performed By: #### E SR, CBC, CMP #### [facility] [address] [place] [address] No Panel InformationOrdered By: Ann Pride on 03-20-2024 Estimated GFR (CKD-EPI) > 60.0 mL/Min [facility] Creatinine Clearance (Chem N/A [facility] Nucleated erythrocytes [Pres ence] in Blood by Automated countOrdered By: Ann Pride on 03-20-2024 Nucleated RBC Auto Ql (Bld) 0.4 /100{WBC} 0-0.[address] [facility] Platelet mean volume [Entiti c volume] in Blood by Automated countOrdered By: Ann Pride on 03-20-2024 Platelet mean volume (Bld) [Entitic vol] 8.5 fL Normal 6.3-10.[address] [facility] Comment on above: Performed By: #### E SR, CBC, CMP #### [facility] [address] [place] [address] Platelets [#/volume] in Bloo d by Automated countOrdered By: Ann Pride on 03-20-2024 Platelets (Bld) [#/Vol] 272 10*3/uL Normal 150-[address] [facility] Comment on above: Performed By: #### E SR, CBC, CMP #### [facility] [address] [place] [address] Potassium [Moles/volume] in Serum or PlasmaOrdered By: Ann Pride on 03-20-2024 Potassium [Moles/Vol] 4.6 mmol/L Normal 3.5-5.1 [facility] Comment on above: Performed By: #### E SR, CBC, CMP #### [address] Protein [Mass/volume] in Ser um or PlasmaOrdered By: Ann Pride on 03-20-2024 Protein [Mass/Vol] 6.5 g/dL Normal 6.4-8.9 [facility] Comment on above: Performed By: #### E SR, CBC, CMP #### [facility] [address] [place] [address] Serum globulin measurement b y calculation (mass/volume)Ordered By: Ann Pride on 03-20-2024 Globulin (S) [Mass/Vol] 2.9 g/dL [facility] Comment on above: Performed By: #### E SR, CBC, CMP #### [address] Serum or plasma albumin/glob ulin mass ratioOrdered By: Ann Pride on 03-20-2024 Albumin/Globulin [Mass ratio] 1.2 {ratio} [facility] Comment on above: Performed By: #### E SR, CBC, CMP #### [address] Serum or plasma anion gap de terminationOrdered By: Ann Pride on 03-20-2024 Anion gap [Moles/Vol] 11.4 mmol/L Normal 6.0-15.0 [facility] Comment on above: Performed By: #### E SR, CBC, CMP #### [facility] [address] [place] [address] [place] Sodium [Moles/volume] in Ser um or PlasmaOrdered By: Ann Pride on 03-20-2024 Sodium [Moles/Vol] 140 mmol/L Normal 136-145 [facility] Comment on above: Performed By: #### E SR, CBC, CMP #### [facility] [address] [place] [id number] [facility] Urea nitrogen [Mass/volume] in Serum or PlasmaOrdered By: Ann Pride on 03-20-2024 Urea nitrogen [Mass/Vol] 17 mg/dL Normal 7-[address] [facility] Comment on above: Performed By: #### E SR, CBC, CMP #### [facility] [address] [place] [id number] [facility] Ambulatory Visit Summaryon 0 01-21-2024 Ambulatory Visit Summary Ambulatory Visit Summary JARETT KEBEDE Christina :1965 Visit Date:05/15/2023 Ambulatory Visit Instructions Your Care Team Primary Care Physician - Ann Glasgow This Is Your Medications List atenolol (atenolol 50 mg Tab) hydrOXYzine (hydrOXYzine pamoate 25 mg Cap) hydrochlorothiazide-tr iamterene (hydrochlorothiazide-t riamterene 25 mg-37.5 mg Tab) multivitamin with minerals ondansetron (Zofran) predniSONE (predniSONE 5 mg Tab) predniSONE (predniSONE 5 mg Tab) sitagliptin (Januvia 50 mg Tab) trazodone (traZODONE 100 mg Tab) Procedures Performed Appendectomy (2017), Pleural effusion (2016), hysterectomy (1999), Colon part, Ileostomy, Adrian - Kay drain, Pyoderma, Surgery. What to do next Scheduled Follow-Up Appointments 2023 1:00 PM EDT With: Where: [facility] Normal [address] [place] [address]- \.br\ Medications\.b r\ What How Much When Instructions\. br\ New atenolol (atenolol 50 mg Tab) 50 Milligram By Mouth Every day Refills: 3 Pickup at [facility]/pharmacy #[id number]\.br\ New hydrOXYzine (hydrOXYzine pamoate 25 mg Cap) 1 Capsules By Mouth 4 times a day as needed for for anxiety Refills: 2 Pickup at [facility]/pharmacy #[id number]\.br\ Changed ondansetron (Zofran) 4 Milligram By Mouth 2 times a day as needed for as needed for nausea/vomitin g\.br\ Changed predniSONE (predniSONE 5 mg Tab) See instructions TAKE 2 BY MOUTH EVERY DAY IN THE MORNING \.br\ Changed predniSONE (predniSONE 5 mg Tab) 3 Tablets By Mouth Every day\.br\ Changed trazodone (traZODONE 100 mg Tab) 1 Tablets By Mouth Once a day (at bedtime)\.br\ Unchanged hydrochlorothi azide-triamter sancho (hydrochloroth iazide-triamte kj 25 mg-37.5 mg Tab) 1 Tablets By Mouth Every day\.br\ Unchanged multivitamin with minerals\.br\ Unchanged sitagliptin (Januvia 50 mg Tab) 1 Tablets By Mouth Every day\.br\ Pharmacy Information\.b r\ [facility]/pharmacy #[id number]: [address] [place], [place] [id number] [phone]\.br\ Allergies\.br\ Augmentin (Sickness)\.br \ Bactrim (bloody stool)\.br\ Latex\.br\ Red Dye (insomnia)\.br \ calcium channel blockers (tachycardia)\ .br\ vancomycin (itching)\.br\ Problems\.br\ Ongoing - Any problem that you are currently receiving treatment for.\.br\ Breast cancer screening by mammogram\.br\ Dyskinesia of gallbladder\.b r\ Elevated hemoglobin A1c measurement\.b r\ Generalized anxiety disorder\.br\ Hypertension\. 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 br\ IBS (irritable bowel syndrome)\.br\ Patient Survey\.br\ You may receive a survey via text or e-mail asking about your office visit. Please share your experience with us by completing your survey. We appreciate your feedback and thank you for choosing us for your care.\.br\ \.br\ [facility] Record[facility] 2023 Home Health Records [id number] Normal [facility] Population Healthon 12-05-19 24 Population Health Case Information Case Priority: None Programs: -- Referral Source: Cane Flume Watcher Referral Reason: Care coordination Case Type: Transition Care Management Risk Score: -- Case Status: Enrolled (November 12, 2023) Date Assigned: November 12, 2023 Assigned By: Harrison Diaz Date Enrolled: November 12, 2023 Assigned Primary Personnel: Harrison Diaz Assigned Secondary Personnel: -- Case Physician: Ann Glasgow Ongoing Breast cancer screening by mammogram Dyskinesia of gallbladder Elevated hemoglobin A1c measurement Generalized anxiety disorder Hypertension 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 Home Medications atenolol 50 mg Tab, 50 mg, Oral, Daily, 1 refills hydrochlorothiazide-tr iamterene 25 mg-37.5 mg Tab, 1 tab(s), Oral, [...] she has an appointment today with RA strickland at 1130. Patient denies any need for medication refills. Communication Events Date: December 05, 2023 Method: Phone call Type: Outbound Duration (min): 4 Outcome: Case discussion Contact Type: donor services coordinator Contact Name: Harrison Diaz Notes: TCM#4- see tcm note. Created By: Harrison Diaz Date: November 28, 2023 Method: Phone call Type: Outbound Duration (min): 3 Outcome: Case discussion Contact Type: donor services coordinator Contact Name: Harrison Diaz Notes: TCM#3- see tcm note. Created By: Harrison Diaz Date: November 21, 2023 Method: Phone call Type: Outbound Duration (min): 4 Outcome: Case discussion Contact Type: donor services coordinator Contact Name: Harrison Diaz Notes: TCM#2- see tcm note. Created By: Harrison Diaz Date: November 12, 2023 Method: Phone call Type: Outbound Duration (min): 9 Outcome: Case discussion Contact Type: donor services coordinator Contact Name: Harrison Diaz Notes: TCM#1- see tcm note. Created By: Harrison Diaz [facility] 11-28-19 [facility] Case Information Case Priority: None Programs: -- Referral Source: Cane Flume Watcher Referral Reason: Care coordination Case Type: Transition Care Management Risk Score: -- Case Status: Enrolled (November 12, 2023) Date Assigned: November 12, 2023 Assigned By: Harrison Diaz Date Enrolled: November 12, 2023 Assigned Primary Personnel: Harrison Diaz Assigned Secondary Personnel: -- Case Physician: Ann Glasgow Ongoing Breast cancer screening by mammogram Dyskinesia of gallbladder Elevated hemoglobin A1c measurement Generalized anxiety disorder Hypertension longterm current use of systemic steroids Morbid obesity Osteomyelitis Pruritic condition 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 Home Medications atenolol 50 mg Tab, 50 mg, Oral, Daily, 1 refills hydrochlorothiazide-tr iamterene 25 mg-37.5 mg Tab, 1 tab(s), Oral, [...] concerns, denies diarrhea or constipation. 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 Patient notes she wouldn't want to be out and about if she were to have GI side effects. Patient denies any further questions or concerns. Communication Events Date: November 28, 2023 Method: Phone call Type: Outbound Duration (min): 3 Outcome: Case discussion Contact Type: donor services coordinator Contact Name: Harrison Diaz Notes: TCM#3- see tcm note. Created By: Harrison Diaz Date: November 21, 2023 Method: Phone call Type: Outbound Duration (min): 4 Outcome: Case discussion Contact Type: donor services coordinator Contact Name: Harrison Diaz Notes: TCM#2- see tcm note. Created By: Harrison Diaz Date: November 12, 2023 Method: Phone call Type: Outbound Duration (min): 9 Outcome: Case discussion Contact Type: donor services coordinator Contact Name: Harrison Diaz Notes: TCM#1- see tcm note. Created By: Harrison Daiz [facility] 11-21-19 [facility] Case Information Case Priority: None Programs: -- Referral Source: Cane Flume Watcher Referral Reason: Care coordination Case Type: Transition Care Management Risk Score: -- Case Status: Enrolled (November 12, 2023) Date Assigned: November 12, 2023 Assigned By: Harrison Diaz Date Enrolled: November 12, 2023 Assigned Primary Personnel: Harrison Diaz Assigned Secondary Personnel: -- Case Physician: Ann Glasgow Ongoing Breast cancer screening by mammogram Dyskinesia of gallbladder Elevated hemoglobin A1c measurement Generalized anxiety disorder Hypertension longterm current use of systemic steroids Morbid obesity Osteomyelitis Pruritic condition 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 Home Medications atenolol 50 mg Tab, 50 mg, Oral, Daily, 1 refills hydrochlorothiazide-tr iamterene 25 mg-37.5 mg Tab, 1 tab(s), Oral, [...] (min): 4 Outcome: Case discussion Contact Type: donor services coordinator Contact Name: Harrison Diaz Notes: TCM#2- see tcm note. Created By: Harrison Diaz Date: November 12, 2023 Method: Phone call Type: Outbound Duration (min): 9 Outcome: Case discussion Contact Type: donor services coordinator Contact Name: Harrison Diaz Notes: TCM#1- see tcm note. 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 Normal [address] [place] [address]- \.br\ Medications\.b r\ What How Much When Why Instructions\. br\ New metformin (metformin 500 mg Tab) 1 Tablets By Mouth 2 times a day Former smoker longterm current use of systemic steroids Elevated hemoglobin A1c measurement Pickup at [facility]/pharmacy #[id number]\.br\ New trazodone (traZODONE 100 mg Tab) 1 Tablets By Mouth Once a day (at bedtime) Refills: 3 Pickup at [facility]/pharmacy #[id number]\.br\ Unchanged atenolol (atenolol 50 mg Tab) 50 Milligram By Mouth Every day\.br\ Unchanged hydrochlorothi azide-triamter sancho (hydrochloroth iazide-triamte kj 25 mg-37.5 mg Tab) 1 Tablets By Mouth Every day\.br\ Unchanged hydrOXYzine (hydrOXYzine pamoate 25 mg Cap) 1 Capsules By Mouth 4 times a day as needed for for anxiety\.br\ Unchanged multivitamin with minerals\.br\ Unchanged ondansetron (Zofran) 4 Milligram By Mouth 2 times a day as needed for as needed for nausea/vomitin g\.br\ Unchanged predniSONE (predniSONE 5 mg Tab) 3 Tablets By Mouth Every day\.br\ Unchanged predniSONE (predniSONE 5 mg Tab) See instructions TAKE 2 BY MOUTH EVERY DAY IN THE MORNING Pickup at [facility]/pharmacy #[id number]\.br\ Pharmacy Information\.b r\ [facility]/pharmacy #[id number]: [address], [place] [id number] [phone]\.br\ Allergies\.br\ Augmentin (Sickness)\.br \ Bactrim (bloody stool)\.br\ Latex\.br\ Red Dye (insomnia)\.br \ calcium channel blockers (tachycardia)\ .br\ vancomycin (itching)\.br\ Problems\.br\ Ongoing - Any problem that you are currently receiving treatment for.\.br\ Breast cancer screening by mammogram\.br\ Dyskinesia of gallbladder\.b r\ Elevated hemoglobin A1c measurement\.b r\ Generalized anxiety disorder\.br\ Hypertension\. 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 br\ IBS (irritable bowel syndrome)\.br\ Patient Survey\.br\ You may receive a survey via text or e-mail asking about your office visit. Please share your experience with us by completing your survey. We appreciate your feedback and thank you for choosing us for your care.\.br\ \.br\ [facility] Family Medicine Office/Clini c Noteon 11-14-2023 Family Medicine Office/Clinic Note HPI Staff Jarett is a 58 year old female presenting for TCM follow up TCM: Hospital: [facility] Admission date: 11/08/23 Discharge date: 11/09/23 Symptoms the patient presented with: Testing: biopsy right foot Current concerns: pt discharged with home health , While in hospital A1c 7.7 no history of Diabetes but is on detention use of steroids for RA pt has [...] HH yesterday, walks with cane Assessment/Plan 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 that is the only thing that helps control her pain. is in need of refill. 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 benefits. RTC 3 months for HGAB1C Ordered: metformin, 500 mg = 1 tab(s), Oral, BID, # 180 tab(s), Refills(s) 0, Pharmacy: [facility]acy #[id number], 157, cm, 11/14/23 14:07:00 EDT, Height/Length Dosing TCM [facility] 7 day disch 21079 2. Elevated hemoglobin A1c measurement (R73.09: Other abnormal glucose) HGBA1C in hospital was 7.7. will start metformin and repeat in 3 months Ordered: metformin, 500 mg = 1 tab(s), Oral, BID, # 180 tab(s), Refills(s) 0, Pharmacy: [facility]/pharmacy #[id number], 157, cm, 11/14/23 14:07:00 EDT, Height/Length Dosing TCM [facility] 7 day disch 95394 3. Osteomyelitis (M86.9: Osteomyelitis, unspecified) pt was in hospital for osteomyelitis. had biopsy by Dr. Bryson. will follow up with him this afternoon. Ordered: TCM [facility] 7 day disch [id number] 4. Former smoker (Z87.891: Personal history of nicotine dependence) continue not smoking Ordered: metformin, 500 mg = 1 tab(s), Oral, BID, # 180 tab(s), Refills(s) 0, Pharmacy: [facility]/pharmacy #[id number], 157, cm, 11/14/23 14:07:00 EDT, Height/Length Dosing TCM [facility] 7 day disch [id number] Orders: predniSONE, See Instructions, TAKE 2 BY MOUTH EVERY DAY IN THE MORNING, # 60 tab(s), Refills(s) 0, Pharmacy: [facility]/pharmacy #[id number], 157, cm, 11/14/23 14:07:00 EDT, Height/Length Dosing trazodone, 100 mg = 1 tab(s), Oral, Once a day (at bedtime), # 45 EA, Refills(s) 3, Pharmacy: [facility]/pharmacy #[id number], 160.6, cm, 11/29/22 14:47:00 EDT, Height/Length Dosing trazodone, 100 mg = 1 tab(s), Oral, Once a day (at bedtime), # 45 EA, Refills(s) 3, Pharmacy: [facility]/pharmacy #[id number], 157, cm, 11/14/23 14:07:00 EDT, Height/Length Dosing Follow-up No qualifying data available Problem List/Past Medical History Ongoing Breast cancer screening by mammogram Dyskinesia of gallbladder Elevated hemoglobin A1c measurement Generalized anxiety disorder Hypertension 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 Medications atenolol 50 mg Tab, 50 mg, Oral, Daily, 1 refills hydrochlorothiazide-tr iamterene 25 mg-37.5 mg Tab, 1 tab(s), Oral, [...] [address] (more content not included)... [facility] Comment on above: Result Comment: Elec tronically Signed By: Ann Glasgow\.br\Date and Time Signed: 11/14/23 14:43 EDT Outside [facility] Correspo ndenceon 11-13-2023 Outside [facility] Correspondence [id number] 0TIFF [facility] RAD - M[facility]Con 11-13-2023 [place] [facility] [id number] 0TIFF [facility] Population [facility] 11-12-19 Population Health Case Information Case Priority: None Programs: -- Referral Source: Cane Flume Watcher Referral Reason: Care coordination Case Type: Transition [...] Tab, 50 mg, Oral, Daily, 1 refills hydrochlorothiazide-tr iamterene 25 mg-37.5 mg Tab, 1 tab(s), Oral, [...] Care Plan Progress Note Admit Date: 11/08/23 [facility] Date of Discharge: 11/09/23 Follow-up appointment scheduled? [...] (min): 9 Outcome: Case discussion Contact Type: donor services coordinator Contact Name: Harrison Diaz Notes: TCM#1- see tcm note. Created By: Harrison Diaz [facility] Consultation Noteon 11-09-19 Consultation Note [id number] 0TIFF Normal [facility] ECG 12-Leadon 11-09-2023 ECG 12-Lead [id number] 0TIFF Normal [facility] Operative Reporton Operative Report [id number]#1.0 0TIFF Normal [facility] Chan 11-08-2023 L Specimen: [id number] Received: 11/09/23 Status: LUIS E Giannaq Num: [id number] Spec Type: Surgical Subm Dr: Sunshine Bryson DPM, MS Tissues: A Bone Biopsy/Currettings (RT CUBOID BONE) B Bone Biopsy/Currettings (RT FOURTH METATARSAL) C Bone Biopsy/Currettings (RT FIFTGH METATARSAL) Procedures: HE/6, Gross/Micro L5/3, Decalcification/3 Age/ Patient Sex Location Account Attending Physician Jarett Kebede 58/F LABELL [id number] Sunshine Bryson DPM, MS SPEC NUM: [id number] RECD: 11/09/23 STATUS: OTTOErendira ANDREW NUM: [id number] MIMI: 11/08/[address]: Sunshine Bryson DPM, MS ENTERED: 11/09/23 DR: Liana Gray SPEC TYPE: Surgical DEPT: ROMÁN YOUNG ORDERED: [...] of acute and chronic osteomyelitis. - Accompanying fibrino-inflammatory exudate and scant granulation tissue, consistent with origin from the bed of a wound or ulcer. Gross Description Received are 3 formalin filled containers each labeled with the patient's name and specific specimen site. A. Further labeled right cuboid bone biopsy , consisting of 3 irregularly-shaped fragments of bone altogether measuring 1.1 x 0.5 x 0.3 cm, entirely submitted in A1 following decalcification. ---- Specimen: [id number] Received: 11/09/23 Status: LUIS E Katzjin Num: [id number] Spec Type: Surgical Subm Dr: Sunshine Bryson,NICOLASA, [place] Tissues: A Bone Biopsy/Currettings (RT CUBOID BONE) B Bone Biopsy/Currettings (RT FOURTH METATARSAL) C Bone Biopsy/Currettings (RT FIFTGH METATARSAL) Procedures: HE/6, Gross/Micro L5/3, Decalcification/3 ---- Patient: Jarett Kebede [id number] (Continued) ---- Specimen: [id number] Received: 11/09/23 (Continued) Gross Description (Continued) Signed (signature on file) Sukhjinder Mcfadden MD 11/12/23 1707 ---- Specimen: [id number] Received: 11/09/23 Status: LUIS E Andrew Num: [id number] Spec Type: Surgical Subm Dr: Sunshine Bryson,N[place]AS[place], [place] Tissues: A Bone Biopsy/Currettings (RT CUBOID BONE) B Bone Biopsy/Currettings (RT FOURTH METATARSAL) C Bone Biopsy/Currettings (RT FIFTGH METATARSAL) Procedures: HE/6, Gross/Micro L5/3, Decalcification/3 ---- Patient: Jarett Kebede [id number] (Continued) ---- Specimen: [id number] Received: 11/09/23 (Continued) Gross Description (Continued) B. [...] Osteomyelitis right ankle and foot CPT Codes 05982g0, 26021k0 ---- ---- Specimen: [id number] Received: 11/09/23 Status: LUIS E Andrew Num: [id number] Spec Type: Surgical Subm Dr: Sunshine Bryson,[place]OL[place], [place] Tissues: A Bone Biopsy/Currettings (RT CUBOID BONE) B Bone Biopsy/Currettings (RT FOURTH METATARSAL) C Bone Biopsy/Currettings (RT FIFTGH METATARSAL) Procedures: HE/6, Gross/Micro L5/3, Decalcification/3 ---- Patient: Jarett Kebede [id number] (Continued) ---- Signed (signature on file) Sukhjinder Mcfadden MD 11/12/[address] [facility] Consultation Noteon 11-07-19 Consultation Note [id number] 0TIFF Normal [facility] CBC AUTO DIFFon 08-17-2022 BASO # 0.1 103/ul Normal 0.0-0.1 [facility] Comment on above: Performed By: #### C BC #### [facility] [address] [place] [address] Dr. Rox Us Basophils/100 WBC (Bld) 0.4 % Normal 0.2-2.0 [facility] Comment on above: Performed By: #### C BC #### [facility] [address] [place] [address] Dr. Rox Us EO # 0.2 103/ul Normal 0.0-0.7 [facility] Comment on above: Performed By: #### C BC #### [facility] [address] [place] [address] Dr. Rox Us Eosinophils/100 WBC (Bld) 1.5 % Normal 0.9-7.0 [facility] Comment on above: Performed By: #### C BC #### [facility] [address] [place] [address] Dr. Rox Us Erythrocyte distribution width (RBC) [Ratio] 15.4 % Critically high 11.0-15.0 [facility] Comment on above: Performed By: #### C BC #### [facility] [address] [place] [address] Dr. Rox Us Hematocrit (Bld) [Volume fraction] 51.3 % Critically high 36.0-48.0 [facility] Comment on above: Performed By: #### C BC #### [facility] [address] [place] [address] Dr. Rox Us Hemoglobin (Bld) [Mass/Vol] 15.7 g/dL Normal 12.0-16.0 [facility] Comment on above: Performed By: #### C BC #### [facility] [address] [place] [address] Dr. Rox Us IG # 0.07 10e3/ul Critically high 0.00-0.03 [facility] Comment on above: Performed By: #### C BC #### [facility] [address] [place] [address] Dr. Rox Us IG % 0.6 % Critically high 0.0-0.5 [facility] Comment on above: Performed By: #### C BC #### [facility] [address] [place] [address] Dr. Rox Us LYMPH # 1.8 103/ul Normal 1.2-3.8 [facility] Comment on above: Performed By: #### C BC #### [facility] [address] [place] [address] Dr. Rox Us Lymphocytes/100 WBC (Bld) 15.2 % Critically low 20.5-60.0 [facility] Comment on above: Performed By: #### C BC #### [facility] [address] [place] [address] Dr. Rox Us MANUAL DIFF REQ NO Normal [facility] Comment on above: Performed By: #### C BC #### [facility] [address] [place] [address] Dr. Rox sU MCH (RBC) [Entitic mass] 28.6 pg Normal 26.7-34.0 [facility] Comment on above: Performed By: #### C BC #### [facility] [address] [place] [address] Dr. Rox Us MCHC (RBC) [Mass/Vol] 30.6 g/dL Normal 29.9-35.2 [facility] Comment on above: Performed By: #### C BC #### [facility] [address] [address] [address] Rox Us MCV (RBC) [Entitic vol] 93.6 fL Normal 81.0-99.0 [facility] Comment on above: Performed By: #### C BC #### [facility] [address] [address] [address] Rox Us MONO # 0.8 103/ul Normal 0.3-0.8 [facility] Comment on above: Performed By: #### C BC #### [facility] [address] [address] [address] Rox Us Monocytes/100 WBC (Bld) 7.2 % Normal 1.7-12.0 [facility] Comment on above: Performed By: #### C BC #### [facility] [address] [place] [address] Dr. Rox Us NEUT # 8.8 103/ul Critically high 1.4-6.5 [facility] Comment on above: Performed By: #### C BC #### [facility] [address] [place] [address] Dr. Rox Us Neutrophils/100 WBC (Bld) 75.1 % Critically high 43.0-75.0 [facility] Comment on above: Performed By: #### C BC #### [facility] [address] [place] [address] Dr. Rox Us Platelet mean volume (Bld) [Entitic vol] 9.5 fL Normal 9.5-13.5 [facility] Comment on above: Performed By: #### C BC #### [facility] [address] [place] [address] Dr. Rox Us PLT 302 103/ul Normal 150-450 [facility] Comment on above: Performed By: #### C BC #### [facility] [address] [place] [address] Dr. Rox Us RBC 5.48 106/ul Critically high 4.20-5.40 [facility] Comment on above: Performed By: #### C BC #### [facility] [address] [place] [address] Dr. Rox Us WBC 11.7 103/ul Critically high 4.0-11.0 [facility] Comment on above: Performed By: #### C BC #### [facility] [address] [place] [address] Dr. Rox Us PROF 14(COMP METB)on 023 Albumin [Mass/Vol] 3.1 g/dL Critically low 3.4-5.0 Th e [facility] Comment on above: Performed By: #### C MP #### [facility] [address] [place] [address] Dr. Rox Us Albumin/Globulin [Mass ratio] 0.7 {ratio} Normal [facility] Comment on above: Performed By: #### C MP #### [facility] [address] [place] [address] Dr. Rox Us ALP [Catalytic activity/Vol] 87 U/L Normal 46-116 [facility] Comment on above: Performed By: #### C MP #### [facility] [address] [place] [address] Dr. Rox Us ALT [Catalytic activity/Vol] 24 U/L Normal 14-59 [facility] Comment on above: Performed By: #### C MP #### [facility] [address] [place] [address] Dr. Rox Us Anion gap [Moles/Vol] 8.5 mmol/L Normal [facility] Comment on above: Performed By: #### C MP #### [facility] [address] [place] [address] Dr. Rox Us AST [Catalytic activity/Vol] 14 U/L Critically low 15-37 [facility] Comment on above: Performed By: #### C MP #### [facility] [address] [place] [address] Dr. Rox Us Bilirubin [Mass/Vol] 0.3 mg/dL Normal 0.2-1.0 [facility] Comment on above: Performed By: #### C MP #### [facility] [address] [place] [address] Dr. Rox Us Calcium [Mass/Vol] 9.3 mg/dL Normal 8.5-10.1 [facility] Comment on above: Performed By: #### C MP #### [facility] [address] [place] [address] Dr. Rox Us Chloride [Moles/Vol] 102 mmol/L Normal 98-107 [facility] Comment on above: Performed By: #### C MP #### [facility] [address] [place] [address] Dr. Rox Us CO2 [Moles/Vol] 34.6 mmol/L Critically high 21.0-32.0 [facility] Comment on above: Performed By: #### C MP #### [facility] [address] [place] [address] Dr. Rox Us Creatinine [Mass/Vol] 0.76 mg/dL Normal 0.55-1.02 [facility] Comment on above: Performed By: #### C MP #### [facility] [address] [place] [address] Dr. Rox Us EGFR-AF GUAMANIAN >60 Normal >=60 [facility] Comment on above: Performed By: #### C MP #### [facility] [address] [place] [address] Dr. Rox Us EGFR-NON AF GUAMANIAN >60 Normal >=60 [facility] Comment on above: Performed By: #### C MP #### [facility] [address] [place] [address] Dr. Rox Us Globulin (S) [Mass/Vol] 4.3 g/dL Normal [facility] Comment on above: Performed By: #### C MP #### [facility] [address] [place] [address] Dr. Rox Us Glucose [Mass/Vol] 125 mg/dL Critically high 74-106 [facility] Comment on above: Performed By: #### C MP #### [facility] [address] [place] [address] Dr. Rox Us Potassium [Moles/Vol] 4.1 mmol/L Normal 3.5-5.1 [facility] Comment on above: Performed By: #### C MP #### [facility] [address] [address] [address] Rox Us Protein [Mass/Vol] 7.4 g/dL Normal 6.4-8.2 [facility] Comment on above: Performed By: #### C MP #### [facility] [address] [address] [address] Rox Us Sodium [Moles/Vol] 141 mmol/L Normal 136-145 [facility] Comment on above: Performed By: #### C MP #### [facility] [address] [address] [address] Rox Us Urea nitrogen [Mass/Vol] 21.0 mg/dL Critically high 7.0-18.0 [facility] Comment on above: Performed By: #### C MP #### [facility] [address] [address] [address] Rox Us Urea nitrogen/Creatinine [Mass ratio] 27.6 mg/mg Normal [facility] Comment on above: Performed By: #### C MP #### [facility] [address] [address] [address] Rox Us SED RATE [facility] 2022 SED RATE 52 mm/hr Critically high <=30 [facility] Comment on above: Performed By: #### S EDR #### [facility] [address] [address] [address] Rox Us Albumin [Mass/volume] in Ser um or PlasmaOrdered By: Juan Carlos Baldwin on 01-12-2022 Albumin [Mass/Vol] 3.2 g/dL 3.2-5.5 [facility] Basophils Auto (Bld) [#/Vol] Ordered By: Juan Carlos Baldwin on 01-12-2022 Basophils (Bld) [#/Vol] 0.1 10*3/uL 0.0-0.[address] [facility] Basophils/100 WBC Auto (Bld) Ordered By: Juan Carlos Baldwin on 01-12-2022 Basophils/100 WBC (Bld) 0.5 % [facility] Blood hemoglobin measurement (mass/volume)Ordered By: Juan Carlos Baldwin on 01-12-2022 Hemoglobin (Bld) [Mass/Vol] 13.8 g/dL 11.8-15.[address] [facility] Blood leukocytes automated c ount (number/volume)Ordered By: Juan Carlos Baldwin on 01-12-2022 WBC (Bld) [#/Vol] 9.7 10*3/uL 4.5-11.0 [facility] Creatinine and Glomerular fi ltration rate.predicted panel (S/P/Bld)Ordered By: Juan Carlos Baldwin on 01-12-2022 Creatinine [Mass/Vol] 0.84 mg/dL 0.44-1.03 [facility] Eosinophils Auto (Bld) [#/Vo l]Ordered By: Juan Carlos Baldwin on 01-12-2022 Eosinophils (Bld) [#/Vol] 0.2 10*3/uL 0.0-0.[address] [facility] Eosinophils/100 WBC Auto (Bl d)Ordered By: Juan Carlos Baldwin on 01-12-2022 Eosinophils/100 WBC (Bld) 1.8 % [facility] Erythrocyte distribution wid th Auto (RBC) [Ratio]Ordered By: Juan Carlos Baldwin on 01-12-2022 Erythrocyte distribution width (RBC) [Ratio] 17.4 % 11.9-15.[address] [facility] Erythrocyte sedimentation ra te by Photometric methodOrdered By: Juan Carlos Baldwin on 01-12-2022 ESR Photometric method (Bld) [Velocity] 47 mm/hr 0-[address] [facility] Estimated glomerular filtrat ion rate (GFR) non- AmericanOrdered By: Juan Carlos Baldwin on 01-12-2022 GFR/1.73 sq M.predicted among non-blacks MDRD (S/P/Bld) [Vol rate/Area] > 60 mL/Min [facility] Globulin Calc (S) [Mass/Vol] Ordered By: Juan Carlos Baldwin on 01-12-2022 Globulin (S) [Mass/Vol] 3.7 g/dL [facility] Hematocrit Auto (Bld) [Volum e fraction]Ordered By: Juan Carlos Baldwin on 01-12-2022 Hematocrit (Bld) [Volume fraction] 42.7 % 34.0-46.[address] [facility] Laboratory - Hematology and Cell countsOrdered By: Juan Carlos Baldwin on 01-12-2022 Nucleated RBC/100 WBC (Bld) [Ratio] 0.1 % 0-0.[address] [facility] Lymphocytes Auto (Bld) [#/Vo l]Ordered By: Juan Carlos Baldwin on 01-12-2022 Lymphocytes (Bld) [#/Vol] 1.8 10*3/uL 1.00-4.[address] [facility] Lymphocytes/100 WBC Auto (Bl d)Ordered By: Juan Carlos Baldwin on 01-12-2022 Lymphocytes/100 WBC (Bld) 18.3 % [facility] MCH Auto (RBC) [Entitic mass ]Ordered By: Juan Carlos Baldwin on 01-12-2022 MCH (RBC) [Entitic mass] 27.4 pg 24.7-34.[address] [facility] MCHC Auto (RBC) [Mass/Vol]Or dered By: Juan Carlos Baldwin on 01-12-2022 MCHC (RBC) [Mass/Vol] 32.4 g/dL 32.0-35.0 [facility] MCV Auto (RBC) [Entitic vol] Ordered By: Juan Carlos Baldwin on 01-12-2022 MCV (RBC) [Entitic vol] 84.5 fL 80-[address] [facility] Monocytes Auto (Bld) [#/Vol] Ordered By: Juan Carlos Baldwin on 01-12-2022 Monocytes (Bld) [#/Vol] 0.6 10*3/uL 0.0-0.[address] [facility] Monocytes/100 WBC Auto (Bld) Ordered By: Juan Carlos Baldwin on 01-12-2022 Monocytes/100 WBC (Bld) 6.5 % [facility] Neutrophils Auto (Bld) [#/Vo l]Ordered By: Juan Carlos Baldwin on 01-12-2022 Neutrophils (Bld) [#/Vol] 7.1 10*3/uL 1.8-7.[address] [facility] Neutrophils/100 WBC Auto (Bl d)Ordered By: Juan Carlos Baldwin on 01-12-2022 Neutrophils/100 WBC (Bld) 72.9 % [facility] No Panel InformationOrdered By: Juan Carlos Baldwin on 01-12-2022 Estimated GFR () > 60 mL/Min [facility] Comment on above: GFR estimated refere nce range: According to KDOQI guidelines, <60 ml/min/1.73m2 is sufficient to diagnose a patient with chronic kidney disease. Pharmacy Creatinine Clearance (Chem N/A [facility] Platelet mean volume Auto (B ld) [Entitic vol]Ordered By: Juan Carlos Baldwin on 01-12-2022 Platelet mean volume (Bld) [Entitic vol] 8.1 fL 6.3-10.[address] [facility] Platelets Auto (Bld) [#/Vol] Ordered By: Juan Carlos Baldwin on 01-12-2022 Platelets (Bld) [#/Vol] 341 10*3/uL 150-[address] [facility] Protein [Mass/volume] in Ser um or PlasmaOrdered By: Juan Carlos Baldwin on 01-12-2022 Protein [Mass/Vol] 6.9 g/dL 6.1-7.9 [facility] RBC Auto (Bld) [#/Vol]Ordere d By: Juan Carlos Baldwin on 01-12-2022 RBC (Bld) [#/Vol] 5.06 10*6/uL 3.60-5.00 [facility] Serum or plasma alanine oviedo otransferase measurement without P-5'-P (enzymatic activiOrdered By: Juan Carlos Baldwin on 01-12-2022 ALT No additional P-5'-P [Catalytic activity/Vol] 15 U/L 10-[address] [facility] Serum or plasma albumin/glob ulin mass ratioOrdered By: Juan Carlos Baldwin on 01-12-2022 Albumin/Globulin [Mass ratio] 0.9 {ratio} [facility] Serum or plasma alkaline breanna sphatase measurement (enzymatic activity/volume)Ordered By: Juan Carlos Baldwin on 01-12-2022 ALP [Catalytic activity/Vol] 76 U/L 32-[address] [facility] Serum or plasma aspartate am inotransferase measurement (enzymatic activity/volume)Ordered By: Juan Carlos Baldwin on 01-12-2022 AST [Catalytic activity/Vol] 16 U/L 10-[address] [facility] Serum or plasma calcium wayne urement (mass/volume)Ordered By: Juan Carlos Baldwin on 01-12-2022 Calcium [Mass/Vol] 9.6 mg/dL 8.2-10.2 [facility] Serum or plasma chloride arcadio surement (moles/volume)Ordered By: Juan Carlos Baldwin on 01-12-2022 Chloride [Moles/Vol] 98 mmol/L 95-114 [facility] Serum or plasma glucose wayne urement (mass/volume)Ordered By: Juan Carlos Baldwin on 01-12-2022 Glucose [Mass/Vol] 115 mg/dL 70-100 [facility] Comment on above: ADA recommended refe rence range Random Glucose Reference Range is dependent on time and content of last meal. Glucose of more than 200 mg/dL in a nonstressed, ambulatory subject supports the diagnosis of Diabetes Mellitus. Serum or plasma potassium me asurement (moles/volume)Ordered By: Juan Carlos Baldwin on 01-12-2022 Potassium [Moles/Vol] 5.0 mmol/L 3.5-5.1 [facility] Serum or plasma sodium measu rement (moles/volume)Ordered By: Juan Carlos Baldwin on 01-12-2022 Sodium [Moles/Vol] 140 mmol/L 136-146 [facility] Serum or plasma total biliru bin measurement (mass/volume)Ordered By: Juan Carlos Baldwin on 01-12-2022 Bilirubin [Mass/Vol] 0.4 mg/dL 0.3-1.2 [facility] Serum or plasma total carbon dioxide measurement (moles/volume)Ordered By: Juan Carlos Baldwin on 01-12-2022 CO2 [Moles/Vol] 29.4 mmol/L 22.0-30.0 [facility] Serum or plasma urea nitroge n measurement (mass/volume)Ordered By: Juan Carlos Baldwin on 01-12-2022 Urea nitrogen [Mass/Vol] 17 mg/dL 04-[address] [facility] BASIC METABOLIC PANELon 07-17 Calcium [Mass/Vol] 7.7 mg/dL Low 8.6-10.3 [facility] Comment on above: Order Comment: Yes: Add to Previous draw if able Performed By: #### 0 0071 ####[facility] [id number], [facility] Chloride [Moles/Vol] 104 mmol/L Normal 98-107 [facility] Comment on above: Order Comment: Yes: Add to Previous draw if able Performed By: #### 0 0071 ####[facility] [place] [address], [place] CO2 [Moles/Vol] 31 mmol/L Normal 21-31 [facility] Comment on above: Order Comment: Yes: Add to Previous draw if able Performed By: #### 0 0071 ####[facility] [facility] [place] [address], [facility] Creatinine [Mass/Vol] 0.62 mg/dL Normal 0.60-1.20 [facility] Comment on above: Order Comment: Yes: Add to Previous draw if able Performed By: #### 0 0071 ####[facility] [id number], [facility] GFR/1.73 sq M predicted among blacks MDRD (S/P/Bld) [Vol rate/Area] mL/min/{1.73_m2} Normal >60 [facility] Comment on above: Order Comment: Yes: Add to Previous draw if able Performed By: #### 0 0071 ####[facility]3000 [facility] [id number], [facility] GFR/1.73 sq M predicted among non-blacks MDRD (S/P/Bld) [Vol rate/Area] mL/min/{1.73_m2} Normal >60 [facility] Comment on above: Order Comment: Yes: Add to Previous draw if able Performed By: #### 0 0071 ####[facility] [place] [address], [place] Glucose [Mass/Vol] 100 mg/dL Normal 70-100 [facility] Comment on above: Order Comment: Yes: Add to Previous draw if able Performed By: #### 0 0071 ####[facility] Potassium [Moles/Vol] 4.0 mmol/L Normal 3.5-5.1 [facility] Comment on above: Order Comment: Yes: Add to Previous draw if able Performed By: #### 0 0071 ####[facility] Sodium [Moles/Vol] 140 mmol/L Normal 136-145 [facility] Comment on above: Order Comment: Yes: Add to Previous draw if able Performed By: #### 0 0071 ####[facility] Urea nitrogen [Mass/Vol] 15 mg/dL Normal 7-25 [facility] Comment on above: Order Comment: Yes: Add to Previous draw if able Performed By: #### 0 0071 ####[facility] CBC W/DIFFon 08-07-2020 ABS BASOPHILS 0.0 10*3/uL Normal 0.0-0.2 [facility] Comment on above: Order Comment: No: D o not add to previous draw Performed By: #### 5 0103 #### [facility] 3000 [facility]. [address] ABS NEUTROPHILS 9.7 10*3/uL High 1.6-7.6 [facility] Comment on above: Order Comment: No: D o not add to previous draw Performed By: #### 5 0103 #### [facility] [address] [facility]. [address] Basophils/100 WBC (Bld) 0.0 % Normal 0.0-1.0 [facility] Comment on above: Order Comment: No: D o not add to previous draw Performed By: #### 5 0103 #### [facility] [address] [place] [address], [facility] Eosinophils (Bld) [#/Vol] 0.3 10*3/uL Normal 0.0-0.5 [facility] Comment on above: Order Comment: No: D o not add to previous draw Performed By: #### 5 0103 #### [facility] [address] [place] [address], [facility] Eosinophils/100 WBC (Bld) 2.7 % Normal 0.0-6.0 [facility] Comment on above: Order Comment: No: D o not add to previous draw Performed By: #### 5 0103 #### [facility] [address] [place] [id number], [facility] Erythrocyte distribution width (RBC) [Ratio] 14.3 % Normal 11.5-15.0 [facility] Comment on above: Order Comment: No: D o not add to previous draw Performed By: #### 5 0103 #### [facility] [address] [place] [address], [facility] Hematocrit (Bld) [Volume fraction] 35.7 % Low 36.0-45.0 [facility] Comment on above: Order Comment: No: D o not add to previous draw Performed By: #### 5 0103 #### [facility] [address] [place] [address], [facility] Hemoglobin (Bld) [Mass/Vol] 10.9 g/dL Low 12.0-15.0 [facility] Comment on above: Order Comment: No: D o not add to previous draw Performed By: #### 5 0103 #### [facility] [address] [place] [address], [place] Lymphocytes (Bld) [#/Vol] 0.7 10*3/uL Low 1.2-4.0 [facility] Comment on above: Order Comment: No: D o not add to previous draw Performed By: #### 5 0103 #### [facility] [address] [place] [address], [facility] Lymphocytes/100 WBC (Bld) 6.3 % Low 20.0-45.0 [facility] Comment on above: Order Comment: No: D o not add to previous draw Performed By: #### 5 0103 #### [facility] [address] [place] [address], [facility] MCH (RBC) [Entitic mass] 27.3 pg Normal 27.0-33.0 [facility] Comment on above: Order Comment: No: D o not add to previous draw Performed By: #### 5 0103 #### [facility] [address] [place] [address], [facility] MCHC (RBC) [Mass/Vol] 30.5 g/dL Low 32.0-35.0 [facility] Comment on above: Order Comment: No: D o not add to previous draw Performed By: #### 5 0103 #### [facility] [address] [place] [address], [facility] MCV (RBC) [Entitic vol] 89.5 fL Normal 82.0-98.0 [facility] Comment on above: Order Comment: No: D o not add to previous draw Performed By: #### 5 0103 #### [facility] [address] [facility] [place] [address], [facility] Monocytes (Bld) [#/Vol] 0.8 10*3/uL Normal 0.1-1.0 [facility] Comment on above: Order Comment: No: D o not add to previous draw Performed By: #### 5 0103 #### [facility] [address] [place] [id number], [facility] MONOS 7.2 % Normal 5.0-12.0 [facility] Comment on above: Order Comment: No: D o not add to previous draw Performed By: #### 5 0103 #### [facility] [address] [place] [address], [facility] MYELOS 0.9 % High 0.0-0.0 [facility] Comment on above: Order Comment: No: D o not add to previous draw Performed By: #### 5 0103 #### [facility] [address] [place] [address], [place] Neutrophils/100 WBC (Bld) 82.9 % High 40.0-72.0 [facility] Comment on above: Order Comment: No: D o not add to previous draw Performed By: #### 5 0103 #### [facility] [address] [place] [address], [facility] Nucleated RBC/100 WBC (Bld) [Ratio] 0 % Normal 0-0 [facility] Comment on above: Order Comment: No: D o not add to previous draw Performed By: #### 5 0103 #### [facility] [address] [place] [address], [place] PLAT CNT 388 10*3/uL Normal 150-400 [facility] Comment on above: Order Comment: No: D o not add to previous draw Performed By: #### 5 0103 #### [facility] [address] [place] [address], [place] RBC (Bld) [#/Vol] 3.99 10*6/uL Normal 3.80-5.00 [facility] Comment on above: Order Comment: No: D o not add to previous draw Performed By: #### 5 0103 #### [facility] [address] [place] [address], [place] WBC (Bld) [#/Vol] 11.71 10*3/uL High 4.00-10.60 [facility] Comment on above: Order Comment: No: D o not add to previous draw Performed By: #### 5 0103 #### [facility] [address] [place] [address], [facility] BASIC METABOLIC PANELon -2 Calcium [Mass/Vol] 7.8 mg/dL Low 8.6-10.3 [facility] Comment on above: Order Comment: No: D o not add to previous draw Performed By: #### 4 1000, 61731, 08323 ####[facility] [facility] [place] [address], [facility] Chloride [Moles/Vol] 102 mmol/L Normal 98-107 [facility] Comment on above: Order Comment: No: D o not add to previous draw Performed By: #### 4 1000, 42825, 21907 ####[facility] [facility] [place] [address], [facility] CO2 [Moles/Vol] 32 mmol/L High 21-31 [facility] Comment on above: Order Comment: No: D o not add to previous draw Performed By: #### 4 1000, 84517, 31240 ####[facility] [facility] [place] [address], [facility] Creatinine [Mass/Vol] 0.73 mg/dL Normal 0.60-1.20 [facility] Comment on above: Order Comment: No: D o not add to previous draw Performed By: #### 4 1000, 70541, 33133 ####[facility] [facility] [place] [address], [facility] GFR/1.73 sq M predicted among blacks MDRD (S/P/Bld) [Vol rate/Area] mL/min/{1.73_m2} Normal >60 [facility] Comment on above: Order Comment: No: D o not add to previous draw Performed By: #### 4 1000, 74113, 25554 ####[facility] [place] [address], [place] GFR/1.73 sq M predicted among non-blacks MDRD (S/P/Bld) [Vol rate/Area] mL/min/{1.73_m2} Normal >60 [facility] Comment on above: Order Comment: No: D o not add to previous draw Performed By: #### 4 1000, 98690, 25884 ####[facility] [place] [address], [place] Glucose [Mass/Vol] 95 mg/dL Normal 70-100 [facility] Comment on above: Order Comment: No: D o not add to previous draw Performed By: #### 4 1000, 98509, 02768 ####[facility] [place] [address], [place] Potassium [Moles/Vol] 3.8 mmol/L Normal 3.5-5.1 [facility] Comment on above: Order Comment: No: D o not add to previous draw Performed By: #### 4 999, 57780, 47450 ####[facility] [place] [address], [place] Sodium [Moles/Vol] 139 mmol/L Normal 136-145 [facility] Comment on above: Order Comment: No: D o not add to previous draw Performed By: #### 4 999, 54872, 44757 ####[facility] [place] [address], [place] Urea nitrogen [Mass/Vol] 18 mg/dL Normal 7-25 [facility] Comment on above: Order Comment: No: D o not add to previous draw Performed By: #### 4 999, 16583, 06432 ####[facility] [place] [address], [place] CBC COMPLETE BLOOD COUNTon 0 - Erythrocyte distribution width (RBC) [Ratio] 14.3 % Normal 11.5-15.0 [facility] Comment on above: Order Comment: Yes: Add to Previous draw if able Performed By: #### 1 0204 #### [facility] [address] Hematocrit (Bld) [Volume fraction] 36.8 % Normal 36.0-45.0 [facility] Comment on above: Order Comment: Yes: Add to Previous draw if able Performed By: #### 1 0204 #### [facility] [address] [place] [address], [facility] Hemoglobin (Bld) [Mass/Vol] 11.2 g/dL Low 12.0-15.0 [facility] Comment on above: Order Comment: Yes: Add to Previous draw if able Performed By: #### 1 0204 #### [facility] [address] MCH (RBC) [Entitic mass] 27.3 pg Normal 27.0-33.0 [facility] Comment on above: Order Comment: Yes: Add to Previous draw if able Performed By: #### 1 0204 #### [facility] [address] MCHC (RBC) [Mass/Vol] 30.4 g/dL Low 32.0-35.0 [facility] Comment on above: Order Comment: Yes: Add to Previous draw if able Performed By: #### 1 0204 #### [facility] [address] MCV (RBC) [Entitic vol] 89.5 fL Normal 82.0-98.0 [facility] Comment on above: Order Comment: Yes: Add to Previous draw if able Performed By: #### 1 0204 #### [facility] [address] Nucleated RBC/100 WBC (Bld) [Ratio] 0 % Normal 0-0 [facility] Comment on above: Order Comment: Yes: Add to Previous draw if able Performed By: #### 1 0204 #### [facility] [address] [place] [address], [facility] PLAT CNT 405 10*3/uL High 150-400 [facility] Comment on above: Order Comment: Yes: Add to Previous draw if able Performed By: #### 1 0204 #### [facility] [address] [place] [address], [facility] RBC (Bld) [#/Vol] 4.11 10*6/uL Normal 3.80-5.00 [facility] Comment on above: Order Comment: Yes: Add to Previous draw if able Performed By: #### 1 0204 #### [facility] [address] [place] [address], [facility] WBC (Bld) [#/Vol] 14.15 10*3/uL High 4.00-10.60 [facility] Comment on above: Order Comment: Yes: Add to Previous draw if able Performed By: #### 1 0204 #### [facility] [address] [facility] [place] [address], [facility] MAGNESIUM BLOODon 08-06-2020 Magnesium [Mass/Vol] 2.3 mg/dL Normal 1.9-2.7 [facility] Comment on above: Performed By: #### 4 1000, 76974, 10508 ####[facility] [facility] [place] [address], [facility] PHOSPHORUS BLOODon Phosphate [Mass/Vol] 2.7 mg/dL Normal 2.5-5.0 [facility] Comment on above: Performed By: #### 4 1000, 12180, 05634 ####[facility] [facility] [place] [address], [facility] BASIC METABOLIC PANELon 07-17 Calcium [Mass/Vol] 8.0 mg/dL Low 8.6-10.3 [facility] Comment on above: Order Comment: No: D o not add to previous draw Performed By: #### 0 0071 ####[facility] [facility] [place] [address], [facility] Chloride [Moles/Vol] 102 mmol/L Normal 98-107 [facility] Comment on above: Order Comment: No: D o not add to previous draw Performed By: #### 0 0071 ####[facility] [facility] [place] [address], [facility] CO2 [Moles/Vol] 32 mmol/L High 21-31 [facility] Comment on above: Order Comment: No: D o not add to previous draw Performed By: #### 0 0071 ####[facility] [facility] [place] [address], [facility] Creatinine [Mass/Vol] 0.73 mg/dL Normal 0.60-1.20 [facility] Comment on above: Order Comment: No: D o not add to previous draw Performed By: #### 0 0071 ####[facility] [facility].[place] [id number], [facility] GFR/1.73 sq M predicted among blacks MDRD (S/P/Bld) [Vol rate/Area] mL/min/{1.73_m2} Normal >60 [facility] Comment on above: Order Comment: No: D o not add to previous draw Performed By: #### 0 0071 ####[facility] [facility] [place] [address], [facility] GFR/1.73 sq M predicted among non-blacks MDRD (S/P/Bld) [Vol rate/Area] mL/min/{1.73_m2} Normal >60 [facility] Comment on above: Order Comment: No: D o not add to previous draw Performed By: #### 0 0071 ####[facility] [facility] [place] [address], [facility] Glucose [Mass/Vol] 107 mg/dL High 70-100 [facility] Comment on above: Order Comment: No: D o not add to previous draw Performed By: #### 0 0071 ####[facility] Potassium [Moles/Vol] 4.0 mmol/L Normal 3.5-5.1 [facility] Comment on above: Order Comment: No: D o not add to previous draw Performed By: #### 0 0071 ####[facility]3000 [facility].[address] Sodium [Moles/Vol] 138 mmol/L Normal 136-145 [facility] Comment on above: Order Comment: No: D o not add to previous draw Performed By: #### 0 0071 ####[address] Urea nitrogen [Mass/Vol] 20 mg/dL Normal 7-25 [facility] Comment on above: Order Comment: No: D o not add to previous draw Performed By: #### 0 0071 ####[address] CBC W/DIFFon 08-05-2020 ABS BASOPHILS 0.1 10*3/uL Normal 0.0-0.2 [facility] Comment on above: Order Comment: Yes: Add to Previous draw if able Performed By: #### 5 102 ####[address] ABS IMM GRANS 0.2 10*3/uL Normal 0.0-0.2 [facility] Comment on above: Order Comment: Yes: Add to Previous draw if able Performed By: #### 5 102 ####[address] ABS NEUTROPHILS 11.8 10*3/uL High 1.6-7.6 [facility] Comment on above: Order Comment: Yes: Add to Previous draw if able Performed By: #### 5 102 ####[facility] [place] [address].[address] Basophils/100 WBC (Bld) 0.4 % Normal 0.0-1.0 [facility] Comment on above: Order Comment: Yes: Add to Previous draw if able Performed By: #### 5 0103 ####[facility] Eosinophils (Bld) [#/Vol] 0.3 10*3/uL Normal 0.0-0.5 [facility] Comment on above: Order Comment: Yes: Add to Previous draw if able Performed By: #### 0103 ####[facility] [facility].[address] Eosinophils/100 WBC (Bld) 2.0 % Normal 0.0-6.0 [facility] Comment on above: Order Comment: Yes: Add to Previous draw if able Performed By: #### 3 ####[facility]3000 [facility].[address] Erythrocyte distribution width (RBC) [Ratio] 14.2 % Normal 11.5-15.0 [facility] Comment on above: Order Comment: Yes: Add to Previous draw if able Performed By: #### 5 3 ####[facility]3000 [facility].[address] Hematocrit (Bld) [Volume fraction] 36.9 % Normal 36.0-45.0 [facility] Comment on above: Order Comment: Yes: Add to Previous draw if able Performed By: #### 0103 ####[facility] [facility].[address] Hemoglobin (Bld) [Mass/Vol] 11.3 g/dL Low 12.0-15.0 [facility] Comment on above: Order Comment: Yes: Add to Previous draw if able Performed By: #### 3 ####[facility] [place] [address], [facility] IMMATURE GRANS 1.3 % High 0.0-1.0 [facility] Comment on above: Order Comment: Yes: Add to Previous draw if able Performed By: #### 5 0103 ####[facility] Lymphocytes (Bld) [#/Vol] 0.8 10*3/uL Low 1.2-4.0 [facility] Comment on above: Order Comment: Yes: Add to Previous draw if able Performed By: #### 5 0103 ####[facility]3000 [facility].[address] Lymphocytes/100 WBC (Bld) 5.7 % Low 20.0-45.0 [facility] Comment on above: Order Comment: Yes: Add to Previous draw if able Performed By: #### 3 ####[facility] [place] [address].[address] MCH (RBC) [Entitic mass] 27.5 pg Normal 27.0-33.0 [facility] Comment on above: Order Comment: Yes: Add to Previous draw if able Performed By: #### 5 3 ####[address] MCHC (RBC) [Mass/Vol] 30.6 g/dL Low 32.0-35.0 [facility] Comment on above: Order Comment: Yes: Add to Previous draw if able Performed By: #### 5 0103 ####[facility] [place] [address].[place] [address], [facility] MCV (RBC) [Entitic vol] 89.8 fL Normal 82.0-98.0 [facility] Comment on above: Order Comment: Yes: Add to Previous draw if able Performed By: #### 3 ####[place] [address], [facility] Monocytes (Bld) [#/Vol] 1.1 10*3/uL High 0.1-1.0 [facility] Comment on above: Order Comment: Yes: Add to Previous draw if able Performed By: #### 5 0103 ####[facility] [place] [address], [facility] MONOS 7.7 % Normal 5.0-12.0 [facility] Comment on above: Order Comment: Yes: Add to Previous draw if able Performed By: #### 5 0103 ####[facility] [facility] [place] [address], [facility] Neutrophils/100 WBC (Bld) 82.9 % High 40.0-72.0 [facility] Comment on above: Order Comment: Yes: Add to Previous draw if able Performed By: #### 5 0103 ####[facility] [facility] [place] [address], [facility] Nucleated RBC/100 WBC (Bld) [Ratio] 0 % Normal 0-0 [facility] Comment on above: Order Comment: Yes: Add to Previous draw if able Performed By: #### 5 0103 ####[facility] [facility] [place] [address], [facility] PLAT CNT 386 10*3/uL Normal 150-400 [facility] Comment on above: Order Comment: Yes: Add to Previous draw if able Performed By: #### 5 0103 ####[facility] [facility] [place] [address], [facility] RBC (Bld) [#/Vol] 4.11 10*6/uL Normal 3.80-5.00 [facility] Comment on above: Order Comment: Yes: Add to Previous draw if able Performed By: #### 5 3 ####[facility] [facility] [place] [address], [facility] WBC (Bld) [#/Vol] 14.21 10*3/uL High 4.00-10.60 [facility] Comment on above: Order Comment: Yes: Add to Previous draw if able Performed By: #### 5 0103 ####[facility] APTTon 08-04-2020 aPTT Coag (Bld) [Time] 39.7 s High 25.0-35.0 [facility] Comment on above: Order Comment: Yes: Add [...] PURPOSE. Performed By: #### 1 0204 #### [facility] [address] CBC W/DIFFon 08-04-2020 ABS BASOPHILS 0.0 10*3/uL Normal 0.0-0.2 [facility] Comment on above: Order Comment: Yes: Add to Previous draw if able Performed By: #### 1 0204 #### [facility] [address] ABS IMM GRANS 0.1 10*3/uL Normal 0.0-0.2 [facility] Comment on above: Order Comment: Yes: Add to Previous draw if able Performed By: #### 1 0204 #### [facility] [address] ABS NEUTROPHILS 13.1 10*3/uL High 1.6-7.6 [facility] Comment on above: Order Comment: Yes: Add to Previous draw if able Performed By: #### 1 0204 #### [facility] [address] Basophils/100 WBC (Bld) 0.1 % Normal 0.0-1.0 [facility] Comment on above: Order Comment: Yes: Add to Previous draw if able Performed By: #### 1 0204 #### [facility] [address] [place] [address], [facility] Eosinophils (Bld) [#/Vol] 0.2 10*3/uL Normal 0.0-0.5 [facility] Comment on above: Order Comment: Yes: Add to Previous draw if able Performed By: #### 1 0204 #### [facility] [address] [place] [address], [facility] Eosinophils/100 WBC (Bld) 1.1 % Normal 0.0-6.0 [facility] Comment on above: Order Comment: Yes: Add to Previous draw if able Performed By: #### 1 4 #### [facility] [address] Erythrocyte distribution width (RBC) [Ratio] 14.1 % Normal 11.5-15.0 [facility] Comment on above: Order Comment: Yes: Add to Previous draw if able Performed By: #### 1 0204 #### [facility] [address] [facility] [place] [address], [facility] Hematocrit (Bld) [Volume fraction] 38.0 % Normal 36.0-45.0 [facility] Comment on above: Order Comment: Yes: Add to Previous draw if able Performed By: #### 1 0204 #### [facility] [address] [facility] [place] [address], [facility] Hemoglobin (Bld) [Mass/Vol] 11.7 g/dL Low 12.0-15.0 [facility] Comment on above: Order Comment: Yes: Add to Previous draw if able Performed By: #### 1 0204 #### [facility] [address] [place] [address], [facility] [facility] 0.8 % Normal 0.0-1.0 [facility] Comment on above: Order Comment: Yes: Add to Previous draw if able Performed By: #### 1 0204 #### [facility] [address] Lymphocytes (Bld) [#/Vol] 0.8 10*3/uL Low 1.2-4.0 [facility] Comment on above: Order Comment: Yes: Add to Previous draw if able Performed By: #### 1 0204 #### [facility] [address] Lymphocytes/100 WBC (Bld) 5.1 % Low 20.0-45.0 [facility] Comment on above: Order Comment: Yes: Add to Previous draw if able Performed By: #### 1 4 #### [facility] [address] MCH (RBC) [Entitic mass] 27.5 pg Normal 27.0-33.0 [facility] Comment on above: Order Comment: Yes: Add to Previous draw if able Performed By: #### 1 4 #### [facility] [address] MCHC (RBC) [Mass/Vol] 30.8 g/dL Low 32.0-35.0 [facility] Comment on above: Order Comment: Yes: Add to Previous draw if able Performed By: #### 1 0204 #### [facility] [address] [place] [address], [facility] MCV (RBC) [Entitic vol] 89.4 fL Normal 82.0-98.0 [facility] Comment on above: Order Comment: Yes: Add to Previous draw if able Performed By: #### 1 0204 #### [facility] [address] [place] [address], [facility] Monocytes (Bld) [#/Vol] 1.0 10*3/uL Normal 0.1-1.0 [facility] Comment on above: Order Comment: Yes: Add to Previous draw if able Performed By: #### 1 0204 #### [facility] [address] [place] [address], [place] MONOS 6.5 % Normal 5.0-12.0 [facility] Comment on above: Order Comment: Yes: Add to Previous draw if able Performed By: #### 1 0204 #### [facility] [address] [place] [address], [place] Neutrophils/100 WBC (Bld) 86.4 % High 40.0-72.0 [facility] Comment on above: Order Comment: Yes: Add to Previous draw if able Performed By: #### 1 0204 #### [facility] [address] [place] [id number], [facility] Nucleated RBC/100 WBC (Bld) [Ratio] 0 % Normal 0-0 [facility] Comment on above: Order Comment: Yes: Add to Previous draw if able Performed By: #### 1 0204 #### [facility] [address] [place] [address], [place] PLAT CNT 394 10*3/uL Normal 150-400 [facility] Comment on above: Order Comment: Yes: Add to Previous draw if able Performed By: #### 1 0204 #### [facility] [address] [place] [address], [facility] RBC (Bld) [#/Vol] 4.25 10*6/uL Normal 3.80-5.00 [facility] Comment on above: Order Comment: Yes: Add to Previous draw if able Performed By: #### 1 0204 #### [facility] [address] [place] [address], [place] WBC (Bld) [#/Vol] 15.11 10*3/uL High 4.00-10.60 [facility] Comment on above: Order Comment: Yes: Add to Previous draw if able Performed By: #### 1 0204 #### [address] DRAINAGE RETROPERITONEALo n 08-04-2020 CT DRAINAGE RETROPERITONEAL [facility] Department of Radiology [address] [place] [id number] ======== Patient Name: JARETT KEBEDE : 1965 Sex: F Age: Race: White Pt. Location: [id number] Patient Status: I Ordered Date: 08/03/2020 6:05:00 PM Completed Date: 08/04/2020 11:57 AM Requesting Provider: TIARA YADAV Attending Provider: JONO VALDIVIA Report Copy To: Signs & Symptoms: Abscess History: See Comments Comments: Fluid Collection Exam: CT DRAINAGE RETROPERITONEAL ======== CT DRAINAGE RETROPERITONEAL 08/04/2020 11:57 AM SIGN [...] risks are acceptable. Consent was obtained. Timeout: Empire protocol timeout verification performed. PROCEDURE: Estimated blood [...] the clinical service and the patient's nurse Tiara at the time of the examination. IMPRESSION: [...] achievable Electronically signed: Jovani Gold. Transcribed by: [email or web address], User Resident: Electronically Signed by: JOVANI GOLD @ 08/04/2020 01:00 PM Normal [facility] Comment on above: Order Comment: Fluid Collection MRI CHEST W WO CONTRASTon MRI CHEST W WO CONTRAST [facility] Department of Radiology [address] [place] [phone] ======== Patient Name: JARETT KEBEDE : 1965 Sex: F Age: Race: White Pt. Location: [address] [place] [address] Patient Status: I Ordered Date: 08/02/2020 2:15:00 PM Completed Date: 08/04/2020 01:56 PM Requesting Provider: DERRICK RUIZ Attending Provider: JONO VALDIVIA Report Copy To: Signs & Symptoms: Shortness of Breath (SOB) History: See Comments Comments: Tumor Exam: MRI CHEST W WO CONTRAST ======== MRI CHEST W WO CONTRAST 08/04/2020 1:56 [...] appropriate Electronically signed: Fredy Bennett. Transcribed by: [email or web address], User Resident: Electronically Signed by: FREDY BENNETT @ 08/04/2020 07:38 PM Normal [facility] Comment on above: Order Comment: Yes: Add to Previous draw if able PROTHROMBIN TIMEon INR Coag (PPP) [Relative time] 1.40 {INR} High 0.91-1.16 [facility] Comment on above: Order Comment: Yes: Add [...] 1995;[id number]. Performed By: #### 1 0204 #### [facility] [address] [place] [address], [facility] PT Coag (PPP) [Time] 17.2 s High 12.3-14.8 [facility] Comment on above: Order Comment: Yes: Add to Previous draw if able Result Comment: ALL RESULTS MUST BE INTERPRETED WITH RESPECT TO BLOOD DRAWING ARTIFACT OR DILUTION ERROR OF ANTICOAGULANT AT THE TIME OF SAMPLING. Performed By: #### 1 0204 #### [facility] [address] [facility] [address] BASIC METABOLIC PANELon 07-16 Calcium [Mass/Vol] 7.9 mg/dL Low 8.6-10.3 [facility] Comment on above: Order Comment: No: D o not add to previous draw Performed By: #### 0 0071 ####[facility] [facility] [place] [address], [facility] Chloride [Moles/Vol] 101 mmol/L Normal 98-107 [facility] Comment on above: Order Comment: No: D o not add to previous draw Performed By: #### 0 0071 ####[facility] [facility] [place] [address], [facility] CO2 [Moles/Vol] 28 mmol/L Normal 21-31 [facility] Comment on above: Order Comment: No: D o not add to previous draw Performed By: #### 0 0071 ####[facility] [place] [address], [place] Creatinine [Mass/Vol] 0.73 mg/dL Normal 0.60-1.20 [facility] Comment on above: Order Comment: No: D o not add to previous draw Performed By: #### 0 0071 ####[facility] [place] [address], [facility] GFR/1.73 sq M predicted among blacks MDRD (S/P/Bld) [Vol rate/Area] mL/min/{1.73_m2} Normal >60 [facility] Comment on above: Order Comment: No: D o not add to previous draw Performed By: #### 0 0071 ####[facility] [facility] [place] [address], [facility] GFR/1.73 sq M predicted among non-blacks MDRD (S/P/Bld) [Vol rate/Area] mL/min/{1.73_m2} Normal >60 [facility] Comment on above: Order Comment: No: D o not add to previous draw Performed By: #### 0 0071 ####[facility] [facility] [place] [address], [facility] Glucose [Mass/Vol] 103 mg/dL High 70-100 [facility] Comment on above: Order Comment: No: D o not add to previous draw Performed By: #### 0 0071 ####[facility] [facility] [place] [address], [facility] Potassium [Moles/Vol] 3.9 mmol/L Normal 3.5-5.1 [facility] Comment on above: Order Comment: No: D o not add to previous draw Performed By: #### 0 0071 ####[facility] [place] [address], [place] Sodium [Moles/Vol] 136 mmol/L Normal 136-145 [facility] Comment on above: Order Comment: No: D o not add to previous draw Performed By: #### 0 0071 ####[facility] [place] [address], [facility] Urea nitrogen [Mass/Vol] 18 mg/dL Normal 7-25 [facility] Comment on above: Order Comment: No: D o not add to previous draw Performed By: #### 0 0071 ####[facility] [place] [address], [facility] CBC COMPLETE BLOOD COUNTon - Erythrocyte distribution width (RBC) [Ratio] 13.9 % Normal 11.5-15.0 [facility] Comment on above: Order Comment: Yes: Add to Previous draw if able Performed By: #### 1 0204 #### [facility] [address] Hematocrit (Bld) [Volume fraction] 35.9 % Low 36.0-45.0 [facility] Comment on above: Order Comment: Yes: Add to Previous draw if able Performed By: #### 1 4 #### [facility] [address] [place] [address], [facility] Hemoglobin (Bld) [Mass/Vol] 11.1 g/dL Low 12.0-15.0 [facility] Comment on above: Order Comment: Yes: Add to Previous draw if able Performed By: #### 1 0204 #### [facility] [address] [place] [address], [facility] MCH (RBC) [Entitic mass] 27.5 pg Normal 27.0-33.0 [facility] Comment on above: Order Comment: Yes: Add to Previous draw if able Performed By: #### 1 0204 #### [facility] [address] [place] [id number], [facility] MCHC (RBC) [Mass/Vol] 30.9 g/dL Low 32.0-35.0 [facility] Comment on above: Order Comment: Yes: Add to Previous draw if able Performed By: #### 1 0204 #### [facility] [address] [place] [address], [facility] MCV (RBC) [Entitic vol] 88.9 fL Normal 82.0-98.0 [facility] Comment on above: Order Comment: Yes: Add to Previous draw if able Performed By: #### 1 0204 #### [facility] [address] [place] [address], [facility] Nucleated RBC/100 WBC (Bld) [Ratio] 0 % Normal 0-0 [facility] Comment on above: Order Comment: Yes: Add to Previous draw if able Performed By: #### 1 0204 #### [facility] [address] [place] [address], [facility] PLAT CNT 339 10*3/uL Normal 150-400 [facility] Comment on above: Order Comment: Yes: Add to Previous draw if able Performed By: #### 1 0204 #### [facility] [address] [place] [address], [facility] RBC (Bld) [#/Vol] 4.04 10*6/uL Normal 3.80-5.00 [facility] Comment on above: Order Comment: Yes: Add to Previous draw if able Performed By: #### 1 0204 #### [facility] [address] [place] [address], [facility] WBC (Bld) [#/Vol] 16.74 10*3/uL High 4.00-10.60 [facility] Comment on above: Order Comment: Yes: Add to Previous draw if able Performed By: #### 1 0204 #### [facility] [address] [place] [address], [facility] HISTOPLASMA AG URINE [id number] on 08-03-2020 HISTOPLASMA AG EIA, URINE Not Detected Normal [facility] Comment on above: Order Comment: No: D o not add to previous draw HISTOPLASMA AG, URINE Not Detected Normal Not Detected [facility] Comment on above: Order Comment: No: D [...] histoplasmosis. Test developed and characteristics determined by [facility]. See Compliance Statement B: [employer] Performed By: [facility] [address] [place] [id number] Marketing Systems Analyst: Eliane Mendoza MD POC GLUCOSE LABon 08-03-2020 Glucose [Mass/Vol] 95 mg/dL Normal 70-100 [facility] Comment on above: Performed By: #### 8 5499 #### [facility] [address] ASPERGILLUS GALACTOMANNAN 60 068on 08-02-2020 ASPERGILLUS GALACTOMANNAN ANTIGEN, SERUM Negative Normal Negative [facility] Comment on above: Order Comment: Yes: Add [...] patients, serial sampling is recommended. Performed By: [facility] [address] [place] [id number] Marketing Systems Analyst: Eliane Mendoza MD ASPERGILLUS GALACTOMANNAN INDEX 0 Normal [facility] Comment on above: Order Comment: Yes: Add to Previous draw if able BASIC METABOLIC PANELon 07-16 Calcium [Mass/Vol] 7.6 mg/dL Low 8.6-10.3 [facility] Comment on above: Order Comment: No: D o not add to previous draw Performed By: #### 0 0071 ####[facility] [place] [address], [facility] Chloride [Moles/Vol] 102 mmol/L Normal 98-107 [facility] Comment on above: Order Comment: No: D o not add to previous draw Performed By: #### 0 0071 ####[facility] [place] [address], [facility] CO2 [Moles/Vol] 27 mmol/L Normal 21-31 [facility] Comment on above: Order Comment: No: D o not add to previous draw Performed By: #### 0 0071 ####[facility] [facility] [place] [address], [facility] Creatinine [Mass/Vol] 0.87 mg/dL Normal 0.60-1.20 [facility] Comment on above: Order Comment: No: D o not add to previous draw Performed By: #### 0 0071 ####[facility] [facility] [place] [address], [facility] GFR/1.73 sq M predicted among blacks MDRD (S/P/Bld) [Vol rate/Area] mL/min/{1.73_m2} Normal >60 [facility] Comment on above: Order Comment: No: D o not add to previous draw Performed By: #### 0 0071 ####[facility] [facility] [place] [address], [facility] GFR/1.73 sq M predicted among non-blacks MDRD (S/P/Bld) [Vol rate/Area] mL/min/{1.73_m2} Normal >60 [facility] Comment on above: Order Comment: No: D o not add to previous draw Performed By: #### 0 0071 ####[facility] [place] [address], [facility] Glucose [Mass/Vol] 129 mg/dL High 70-100 [facility] Comment on above: Order Comment: No: D o not add to previous draw Performed By: #### 0 0071 ####[facility] [place] [address], [place] Potassium [Moles/Vol] 3.8 mmol/L Normal 3.5-5.1 [facility] Comment on above: Order Comment: No: D o not add to previous draw Performed By: #### 0 0071 ####[facility] [place] [address], [facility] Sodium [Moles/Vol] 136 mmol/L Normal 136-145 [facility] Comment on above: Order Comment: No: D o not add to previous draw Performed By: #### 0 0071 ####[facility] [place] [address], [facility] Urea nitrogen [Mass/Vol] 23 mg/dL Normal 7-25 [facility] Comment on above: Order Comment: No: D o not add to previous draw Performed By: #### 0 0071 ####[facility] [facility] [place] [address], [facility] CBC COMPLETE BLOOD COUNTon 0 - Erythrocyte distribution width (RBC) [Ratio] 13.8 % Normal 11.5-15.0 [facility] Comment on above: Order Comment: Yes: Add to Previous draw if able Performed By: #### 1 4 #### [facility] [address] [place] [address], [place] Hematocrit (Bld) [Volume fraction] 35.5 % Low 36.0-45.0 [facility] Comment on above: Order Comment: Yes: Add to Previous draw if able Performed By: #### 1 4 #### [facility] [address] Hemoglobin (Bld) [Mass/Vol] 11.1 g/dL Low 12.0-15.0 [facility] Comment on above: Order Comment: Yes: Add to Previous draw if able Performed By: #### 1 0204 #### [facility] [address] [place] [address], [facility] MCH (RBC) [Entitic mass] 28.0 pg Normal 27.0-33.0 [facility] Comment on above: Order Comment: Yes: Add to Previous draw if able Performed By: #### 1 0204 #### [facility] [address] [facility] [place] [address], [facility] MCHC (RBC) [Mass/Vol] 31.3 g/dL Low 32.0-35.0 [facility] Comment on above: Order Comment: Yes: Add to Previous draw if able Performed By: #### 1 0204 #### [facility] [address] [facility] [place] [address], [facility] MCV (RBC) [Entitic vol] 89.4 fL Normal 82.0-98.0 [facility] Comment on above: Order Comment: Yes: Add to Previous draw if able Performed By: #### 1 0204 #### [facility] [address] [facility] [place] [address], [facility] Nucleated RBC/100 WBC (Bld) [Ratio] 0 % Normal 0-0 [facility] Comment on above: Order Comment: Yes: Add to Previous draw if able Performed By: #### 1 0204 #### [facility] [address] [facility] [place] [address], [facility] PLAT CNT 335 10*3/uL Normal 150-400 [facility] Comment on above: Order Comment: Yes: Add to Previous draw if able Performed By: #### 1 0204 #### [facility] [address] [place] [address], [facility] RBC (Bld) [#/Vol] 3.97 10*6/uL Normal 3.80-5.00 [facility] Comment on above: Order Comment: Yes: Add to Previous draw if able Performed By: #### 1 0204 #### [facility] [address] [place] [address], [facility] WBC (Bld) [#/Vol] 19.28 10*3/uL High 4.00-10.60 [facility] Comment on above: Order Comment: Yes: Add to Previous draw if able Performed By: #### 1 0204 #### [facility] [address] FUNGITELL (1,3-SBQN-E-GLUCAN )on 08-02-2020 FUNGITELL (1,3 ENRB-U-ZBLGLK) <31 Normal [facility] Comment on above: Order Comment: Yes: Add to Previous draw if able FUNGITELL INTERPRETATION Negative Normal Negative [facility] Comment on above: Order Comment: Yes: Add to Previous draw if able Result Comment: INTE RPRETIVE INFORMATION: (1,3)-puqy-D-xwlcwn (Fungitell) Less than 31 pg/mL ................... Negative 31-59 pg/mL .......................... Negative 60-79 pg/mL .......................... Indeterminate Greater than or equal to 80 pg/mL .... Positive The Fungitell test is indicated for presumptive diagnosis of fungal infection and should be used in conjunction with other diagnostic procedures. This test does not detect certain fungal species such as Cryptococcus, which produce very low levels of (1,3)-negb-R-iauzdx. This test will not detect the zygomycetes, such as Absidia, Mucor, and Rhizopus, which are not known to produce (1,3)-sjkh-Z-hrtmni. In addition, the yeast phase of Blastomyces dermatitidis produces little (1,3)-skph-A-xiovsg and may not be detected by the assay. Performed By: [facility] [address] [place] [address] Marketing Systems Analyst: Eliane Mendoza MD TB QUANTIFERON PLUSon 2020 MITOGEN MINUS NIL >10.00 Normal [facility] Comment on above: Order Comment: Yes: Add to Previous draw if able Performed By: #### 3 1592 #### [facility] [address] NIL 0.09 IU/mL Normal [facility] Comment on above: Order Comment: Yes: Add to Previous draw if able Performed By: #### 3 1592 #### [facility] 3000 [facility]. [address] TB QUANTIFERON Negative Normal NEGATIVE [facility] Comment on above: Order Comment: Yes: Add to Previous draw if able Result Comment: Erick tiferon TB Gold Interpretation (IU/mL): NEGATIVE: M. tuberculosis infection not likely. Nil: <=8.0 TB1 Antigen minus Nil (HU6FN-FBK): <0.35 OR >=0.35; and <25% of Nil value. TB2 Antigen minus Nil (EU6NX-GVR): <0.35 OR >=0.35; and <25% of Nil [...] (https://www.cdc.gov/tb/publications/guidlines/default.htm Performed By: #### 3 1592 #### [facility] [address] TB1 AG 0.08 IU/mL Normal [facility] Comment on above: Order Comment: Yes: Add to Previous draw if able Performed By: #### 3 1592 #### [facility] [address] [place] [address], [facility] TB1 AG MINUS NIL -0.01 IU/mL Normal [facility] Comment on above: Order Comment: Yes: Add to Previous draw if able Performed By: #### 3 1592 #### [facility] [address] [place] [address], [facility] TB2 AG 0.08 IU/mL Normal [facility] Comment on above: Order Comment: Yes: Add to Previous draw if able Performed By: #### 3 1592 #### [facility] [address] [facility] [place] [address], [place] TB2 AG MINUS NIL -0.01 IU/mL Normal [facility] Comment on above: Order Comment: Yes: Add to Previous draw if able Performed By: #### 3 1592 #### [facility] [address] [facility] [place] [address], [facility] *SARS-CoV-2 COVID-19on 08-01 [id number] Not Detected Normal Not Detected [facility] Comment on above: Order Comment: No co llection time noted on specimen or requisition. The collection time recorded is the time of receipt in the lab. The Aptima SARS-CoV-2 assay is a nucleic acid amplification test intended for the qualitative detection of RNA from SARS-CoV-2 isolated and purified from nasopharyngeal (SURFACE HYDROLOGIST),oropharyngeal (OP), nasal swab, sputum, and bronchoalveolar lavage (BAL) specimens from patients with signs and symptoms of infection who are suspected of COVID-19. Results are for the identification of SARS-CoV-2 RNA. The SARS-CoV-2 RNA is generally detectable during the acute phase of infection. The Aptima SARS-CoV-2 Assay on the Vandiver and Vandiver Fusion system is intended for use by laboratory personnel specifically instructed and trained in the operation of the [employer]iver and [employer] Fusion system. The Aptima SARS-CoV-2 assay is [...] information. Performed By: #### 3 1792 #### [facility] [address] [place] [address], [facility] BASIC METABOLIC PANELon 07-16 Calcium [Mass/Vol] 7.6 mg/dL Low 8.6-10.3 [facility] Comment on above: Order Comment: No: D o not add to previous draw Performed By: #### 1 0070, [id number], [id number] ####[facility]3000 [facility] [place] [address], [facility] Chloride [Moles/Vol] 103 mmol/L Normal 98-107 [facility] Comment on above: Order Comment: No: D o not add to previous draw Performed By: #### 1 0070, [id number], [id number] ####[facility] [facility] [place] [place] [address], [facility] CO2 [Moles/Vol] 27 mmol/L Normal 21-31 [facility] Comment on above: Order Comment: No: D o not add to previous draw Performed By: #### 1 0070, [id number], [id number] ####[facility] [facility] [place] [address], [facility] Creatinine [Mass/Vol] 0.85 mg/dL Normal 0.60-1.20 [facility] Comment on above: Order Comment: No: D o not add to previous draw Performed By: #### 1 0070, 07656, 60100 ####[facility]3000 [facility] [place] [address], [facility] GFR/1.73 sq M predicted among blacks MDRD (S/P/Bld) [Vol rate/Area] mL/min/{1.73_m2} Normal >60 [facility] Comment on above: Order Comment: No: D o not add to previous draw Performed By: #### 1 0, 19875, 55647 ####[facility] [place] [address], [facility] GFR/1.73 sq M predicted among non-blacks MDRD (S/P/Bld) [Vol rate/Area] mL/min/{1.73_m2} Normal >60 [facility] Comment on above: Order Comment: No: D o not add to previous draw Performed By: #### 1 0070, 13255, 16917 ####[facility] [place] [address], [place] Glucose [Mass/Vol] 132 mg/dL High 70-100 [facility] Comment on above: Order Comment: No: D o not add to previous draw Performed By: #### 1 0, 85400, 76025 ####[facility] [place] [address], [place] Potassium [Moles/Vol] 3.9 mmol/L Normal 3.5-5.1 [facility] Comment on above: Order Comment: No: D o not add to previous draw Performed By: #### 1 0, 14039, 12888 ####[facility] [place] [address], [place] Sodium [Moles/Vol] 138 mmol/L Normal 136-145 [facility] Comment on above: Order Comment: No: D o not add to previous draw Performed By: #### 1 0070, 15243, 37668 ####[facility] [place] [address], [place] Urea nitrogen [Mass/Vol] 19 mg/dL Normal 7-25 [facility] Comment on above: Order Comment: No: D o not add to previous draw Performed By: #### 1 0070, 99510, 90994 ####[facility] [place] [address], [place] C REACTIVE PROTEINon 021 CRP [Mass/Vol] 287.0 mg/L High 0.0-7.0 [facility] Comment on above: Order Comment: Yes: Add to Previous draw if able Performed By: #### 6 1405 ####[facility] [facility] [place] [address], [facility] CBC W/DIFFon 08-01-2020 ABS BASOPHILS 0.1 10*3/uL Normal 0.0-0.2 [facility] Comment on above: Order Comment: Yes: Add to Previous draw if able Performed By: #### 1 0204 #### [facility] [address] [facility] [place] [address], [facility] ABS IMM GRANS 0.1 10*3/uL Normal 0.0-0.2 [facility] Comment on above: Order Comment: Yes: Add to Previous draw if able Performed By: #### 1 0204 #### [facility] [address] [facility] [address] ABS NEUTROPHILS 19.1 10*3/uL High 1.6-7.6 [facility] Comment on above: Order Comment: Yes: Add to Previous draw if able Performed By: #### 1 0204 #### [facility] [address] [facility] [place] [address], [facility] Basophils/100 WBC (Bld) 0.2 % Normal 0.0-1.0 [facility] Comment on above: Order Comment: Yes: Add to Previous draw if able Performed By: #### 1 0204 #### [facility] [address] [facility] [place] [address], [facility] Eosinophils (Bld) [#/Vol] 0.1 10*3/uL Normal 0.0-0.5 [facility] Comment on above: Order Comment: Yes: Add to Previous draw if able Performed By: #### 1 0204 #### [facility] [address] [place] [address], [facility] Eosinophils/100 WBC (Bld) 0.4 % Normal 0.0-6.0 [facility] Comment on above: Order Comment: Yes: Add to Previous draw if able Performed By: #### 1 0204 #### [facility] [address] [place] [address], [facility] Erythrocyte distribution width (RBC) [Ratio] 13.8 % Normal 11.5-15.0 [facility] Comment on above: Order Comment: Yes: Add to Previous draw if able Performed By: #### 1 0204 #### [facility] [address] [place] [address], [facility] Hematocrit (Bld) [Volume fraction] 38.9 % Normal 36.0-45.0 [facility] Comment on above: Order Comment: Yes: Add to Previous draw if able Performed By: #### 1 0204 #### [facility] [address] [place] [address], [facility] Hemoglobin (Bld) [Mass/Vol] 12.0 g/dL Normal 12.0-15.0 [facility] Comment on above: Order Comment: Yes: Add to Previous draw if able Performed By: #### 1 0204 #### [facility] [address] [place] [address], [facility] IMMATURE GRANS 0.6 % Normal 0.0-1.0 [facility] Comment on above: Order Comment: Yes: Add to Previous draw if able Performed By: #### 1 0204 #### [facility] [address] [place] [address], [facility] Lymphocytes (Bld) [#/Vol] 0.7 10*3/uL Low 1.2-4.0 [facility] Comment on above: Order Comment: Yes: Add to Previous draw if able Performed By: #### 1 0204 #### [facility] [address] [place] [address], [facility] Lymphocytes/100 WBC (Bld) 3.2 % Low 20.0-45.0 [facility] Comment on above: Order Comment: Yes: Add to Previous draw if able Performed By: #### 1 0204 #### [facility] [address] [facility] [place] [address], [facility] MCH (RBC) [Entitic mass] 27.4 pg Normal 27.0-33.0 [facility] Comment on above: Order Comment: Yes: Add to Previous draw if able Performed By: #### 1 0204 #### [facility] [address] [facility] [place] [address], [facility] MCHC (RBC) [Mass/Vol] 30.8 g/dL Low 32.0-35.0 [facility] Comment on above: Order Comment: Yes: Add to Previous draw if able Performed By: #### 1 4 #### [facility] [address] [facility] [place] [address], [facility] MCV (RBC) [Entitic vol] 88.8 fL Normal 82.0-98.0 [facility] Comment on above: Order Comment: Yes: Add to Previous draw if able Performed By: #### 1 0204 #### [facility] [address] [facility] [place] [address], [facility] Monocytes (Bld) [#/Vol] 0.8 10*3/uL Normal 0.1-1.0 [facility] Comment on above: Order Comment: Yes: Add to Previous draw if able Performed By: #### 1 0204 #### [facility] [address] [place] [address], [facility] MONOS 3.9 % Low 5.0-12.0 [facility] Comment on above: Order Comment: Yes: Add to Previous draw if able Performed By: #### 1 0204 #### [facility] [address] [facility] [place] [address], [facility] Neutrophils/100 WBC (Bld) 91.7 % High 40.0-72.0 [facility] Comment on above: Order Comment: Yes: Add to Previous draw if able Performed By: #### 1 0204 #### [facility] [address] Nucleated RBC/100 WBC (Bld) [Ratio] 0 % Normal 0-0 [facility] Comment on above: Order Comment: Yes: Add to Previous draw if able Performed By: #### 1 0204 #### [facility] [address] PLAT CNT 367 10*3/uL Normal 150-400 [facility] Comment on above: Order Comment: Yes: Add to Previous draw if able Performed By: #### 1 0204 #### [address] RBC (Bld) [#/Vol] 4.38 10*6/uL Normal 3.80-5.00 [facility] Comment on above: Order Comment: Yes: Add to Previous draw if able Performed By: #### 1 0204 #### [facility] [address] WBC (Bld) [#/Vol] 20.78 10*3/uL High 4.00-10.60 [facility] Comment on above: Order Comment: Yes: Add to Previous draw if able Performed By: #### 1 0204 #### [facility] [address] [place]IN[place]PTIDE [place] [id number] 08-01-2020 CYCLIC CIT PEP 224 Units High 0-19 [facility] Comment on above: Order Comment: Yes: Add [...] be monitored and testing repeated. Performed By: [facility] [address] [place] [address] Marketing Systems Analyst: Eliane Mendoza MD MAGNESIUM BLOODon 08-01-2020 Magnesium [Mass/Vol] 1.7 mg/dL Low 1.9-2.7 [facility] Comment on above: Order Comment: Yes: Add to Previous draw if able Performed By: #### 1 0204 #### [facility] [address] PHOSPHORUS BLOODon 1 Phosphate [Mass/Vol] 2.7 mg/dL Normal 2.5-5.0 [facility] Comment on above: Performed By: #### 1 0070, 03793, 78408 ####[facility] PROTHROMBIN TIMEon 1 INR Coag (PPP) [Relative time] 1.50 {INR} High 0.91-1.16 [facility] Comment on above: Order Comment: Yes: Add [...] CHEST 1995;108:[id number]. Performed By: #### 5 6101 ####[facility] [facility].[address] PT Coag (PPP) [Time] 18.1 s High 12.3-14.8 [facility] Comment on above: Order Comment: Yes: Add to Previous draw if able Result Comment: ALL RESULTS MUST BE INTERPRETED WITH RESPECT TO BLOOD DRAWING ARTIFACT OR DILUTION ERROR OF ANTICOAGULANT AT THE TIME OF SAMPLING. Performed By: #### 5 6101 ####[facility] [facility].[address] RHEUMATOID FACTOR SERUMon RA 64 IU/mL High 0-20 [facility] Comment on above: Order Comment: Yes: Add to Previous draw if able Performed By: #### 1 0204 #### [facility] [address] [facility] [place] [address], [facility] SEDIMENTATION RATEon 021 SED RATE 41 mm/hr High 0-20 [facility] Comment on above: Order Comment: Yes: Add to Previous draw if able Performed By: #### 1 0204 #### [facility] [address] [facility] [place] [address], [facility] TROPONIN-Ion 08-01-2020 Troponin I.cardiac [Mass/Vol] 0.01 ng/mL Normal 0.00-0.04 [facility] Comment on above: Order Comment: Yes: Add to Previous draw if able Result Comment: REFE RENCE RANGES: 0.00 - 0.04 ng/ml NORMAL 0.05 - 0.50 ng/ml INDETERMINATE > 0.50 ng/ml CONSISTENT WITH AN M.I. Performed By: #### 3 5200 ####[facility] LACTATE WITH REFLEXon 2020 Lactate [Moles/Vol] 0.9 mmol/L Normal 0.5-2.2 [facility] Comment on above: Performed By: #### 3 1414 ####[facility] *BLOOD CULTUREon 07-31-2020 Bacteria identified Cx Nom (Bld) Clinical Report: (D) Specimen: BLOOD CULTURE Collected: 07/31/2020 17:20 Status: Final Last Updated: 08/06/2020 15:38 (1) Prior to antibiotic administration LAC CULT RES (Final) No Growth Day 5 Normal [facility] Comment on above: Order Comment: Prior to antibiotic administration LAC Performed By: #### 3 0313 #### [facility] [address] Bacteria identified Cx Nom (Bld) Clinical Report: (D) Specimen: BLOOD CULTURE Collected: 07/31/2020 16:20 Status: Final Last Updated: 08/06/2020 15:38 (1) Prior to antibiotic administration RFA CULT RES (Final) No Growth Day 5 Normal [facility] Comment on above: Order Comment: Yes: Add to Previous draw if able Performed By: #### 3 0313 ####[facility] BASIC METABOLIC PANELon 07-16 Calcium [Mass/Vol] 7.7 mg/dL Low 8.6-10.3 [facility] Comment on above: Order Comment: Fluid Collection Performed By: #### 9 9909, 81709, 43099 ####[facility] Chloride [Moles/Vol] 104 mmol/L Normal 98-107 [facility] Comment on above: Order Comment: Fluid Collection Performed By: #### 9 9909, 80592, 40673 ####[facility] [place] [address], [place] CO2 [Moles/Vol] 25 mmol/L Normal 21-31 [facility] Comment on above: Order Comment: Fluid Collection Performed By: #### 9 9909, 86686, 90916 ####[facility] [place] [address], [place] Creatinine [Mass/Vol] 0.82 mg/dL Normal 0.60-1.20 [facility] Comment on above: Order Comment: Fluid Collection Performed By: #### 9 9909, 36265, 10102 ####[facility] [place] [address], [place] GFR/1.73 sq M predicted among blacks MDRD (S/P/Bld) [Vol rate/Area] mL/min/{1.73_m2} Normal >60 [facility] Comment on above: Order Comment: Fluid Collection Performed By: #### 9 9909, 48343, 81455 ####[facility] [place] [address], [place] GFR/1.73 sq M predicted among non-blacks MDRD (S/P/Bld) [Vol rate/Area] mL/min/{1.73_m2} Normal >60 [facility] Comment on above: Order Comment: Fluid Collection Performed By: #### 9 9909, 51564, 47521 ####[facility] [place] [address], [place] Glucose [Mass/Vol] 159 mg/dL High 70-100 [facility] Comment on above: Order Comment: Fluid Collection Performed By: #### 9 9909, 84274, 54996 ####[facility] [place] [address], [place] Potassium [Moles/Vol] 4.4 mmol/L Normal 3.5-5.1 [facility] Comment on above: Order Comment: Fluid Collection Performed By: #### 9 9909, 69989, 18246 ####[facility] [facility].[address] Sodium [Moles/Vol] 138 mmol/L Normal 136-145 [facility] Comment on above: Order Comment: Fluid Collection Performed By: #### 9 9909, 13192, 32476 ####[facility] [facility].[address] Urea nitrogen [Mass/Vol] 20 mg/dL Normal 7-25 [facility] Comment on above: Order Comment: Fluid Collection Performed By: #### 9 9909, 28522, 05384 ####[facility] [facility].[address] CBC W/DIFFon 07-31-2020 ABS BASOPHILS 0.0 10*3/uL Normal 0.0-0.2 [facility] Comment on above: Order Comment: Yes: Add to Previous draw if able Performed By: #### 1 0204 #### [facility] [address] [facility] [place] [address], [facility] ABS IMM GRANS 0.1 10*3/uL Normal 0.0-0.2 [facility] Comment on above: Order Comment: Yes: Add to Previous draw if able Performed By: #### 1 0204 #### [facility] [address] [facility] [place] [address], [facility] ABS NEUTROPHILS 16.2 10*3/uL High 1.6-7.6 [facility] Comment on above: Order Comment: Yes: Add to Previous draw if able Performed By: #### 1 0204 #### [facility] [address] [place] [address], [facility] Basophils/100 WBC (Bld) 0.2 % Normal 0.0-1.0 [facility] Comment on above: Order Comment: Yes: Add to Previous draw if able Performed By: #### 1 4 #### [facility] [address] [place] [address], [facility] Eosinophils (Bld) [#/Vol] 0.0 10*3/uL Normal 0.0-0.5 [facility] Comment on above: Order Comment: Yes: Add to Previous draw if able Performed By: #### 1 0204 #### [facility] [address] [facility] [place] [address], [facility] Eosinophils/100 WBC (Bld) 0.0 % Normal 0.0-6.0 [facility] Comment on above: Order Comment: Yes: Add to Previous draw if able Performed By: #### 1 4 #### [facility] [address] [facility] Erythrocyte distribution width (RBC) [Ratio] 13.5 % Normal 11.5-15.0 [facility] Comment on above: Order Comment: Yes: Add to Previous draw if able Performed By: #### 1 4 #### [facility] [address] Hematocrit (Bld) [Volume fraction] 40.4 % Normal 36.0-45.0 [facility] Comment on above: Order Comment: Yes: Add to Previous draw if able Performed By: #### 1 0204 #### [facility] [address] Hemoglobin (Bld) [Mass/Vol] 12.9 g/dL Normal 12.0-15.0 [facility] Comment on above: Order Comment: Yes: Add to Previous draw if able Performed By: #### 1 0204 #### [facility] [address] [place] [address], [facility] IMMATURE GRANS 0.4 % Normal 0.0-1.0 [facility] Comment on above: Order Comment: Yes: Add to Previous draw if able Performed By: #### 1 0204 #### [facility] [address] [facility] [place] [address], [facility] Lymphocytes (Bld) [#/Vol] 0.8 10*3/uL Low 1.2-4.0 [facility] Comment on above: Order Comment: Yes: Add to Previous draw if able Performed By: #### 1 4 #### [facility] [address] [facility] [place] [address], [facility] Lymphocytes/100 WBC (Bld) 4.7 % Low 20.0-45.0 [facility] Comment on above: Order Comment: Yes: Add to Previous draw if able Performed By: #### 1 4 #### [facility] [address] [place] [address], [facility] MCH (RBC) [Entitic mass] 28.0 pg Normal 27.0-33.0 [facility] Comment on above: Order Comment: Yes: Add to Previous draw if able Performed By: #### 1 4 #### [facility] [address] [place] [address], [facility] MCHC (RBC) [Mass/Vol] 31.9 g/dL Low 32.0-35.0 [facility] Comment on above: Order Comment: Yes: Add to Previous draw if able Performed By: #### 1 4 #### [facility] [address] [place] [address], [facility] MCV (RBC) [Entitic vol] 87.8 fL Normal 82.0-98.0 [facility] Comment on above: Order Comment: Yes: Add to Previous draw if able Performed By: #### 1 0204 #### [facility] [address] [place] [address], [facility] Monocytes (Bld) [#/Vol] 0.8 10*3/uL Normal 0.1-1.0 [facility] Comment on above: Order Comment: Yes: Add to Previous draw if able Performed By: #### 1 0204 #### [facility] [address] [place] [address], [place] MONOS 4.6 % Low 5.0-12.0 [facility] Comment on above: Order Comment: Yes: Add to Previous draw if able Performed By: #### 1 0204 #### [facility] [address] [place] [address], [place] Neutrophils/100 WBC (Bld) 90.1 % High 40.0-72.0 [facility] Comment on above: Order Comment: Yes: Add to Previous draw if able Performed By: #### 1 0204 #### [facility] [address] [place] [address], [facility] Nucleated RBC/100 WBC (Bld) [Ratio] 0 % Normal 0-0 [facility] Comment on above: Order Comment: Yes: Add to Previous draw if able Performed By: #### 1 0204 #### [facility] [address] [place] [address], [place] PLAT CNT 383 10*3/uL Normal 150-400 [facility] Comment on above: Order Comment: Yes: Add to Previous draw if able Performed By: #### 1 0204 #### [facility] [address] [place] [id number], [facility] RBC (Bld) [#/Vol] 4.60 10*6/uL Normal 3.80-5.00 [facility] Comment on above: Order Comment: Yes: Add to Previous draw if able Performed By: #### 1 0204 #### [facility] [address] [place] [address], [place] WBC (Bld) [#/Vol] 17.95 10*3/uL High 4.00-10.60 [facility] Comment on above: Order Comment: Yes: Add to Previous draw if able Performed By: #### 1 0204 #### [facility] [address] ABDOMEN AND PELVIS W IV A ND ORAL CONTRASTon 07-31-2020 CT ABDOMEN AND PELVIS W IV AND ORAL CONTRAST [facility] Department of Radiology [address] [place] [id number] ======== Patient Name: JARETT KEBEDE : 1965 Sex: F Age: Race: White Pt. Location: [facility] Patient Status: I Ordered Date: 07/31/2020 6:10:00 PM Completed Date: 07/31/2020 07:47 PM Requesting Provider: PARDEEP MCBRIDE Attending Provider: GUSTABO GARCIA Report Copy To: Signs & Symptoms: Abscess History: See Comments Comments: Other, ruq abdominal pain, h/o ileocolonic anastomosis. Rule out anastomotic leak/fistula and abcess Exam: CT ABDOMEN AND PELVIS W IV AND ORAL CONTRAST ======== CT ABDOMEN AND PELVIS W IV AND [...] the infectious or neoplastic etiology. Electronically signed: Dereck Aquino. Transcribed by: [email or web address], User Resident: DERECK AQUINO Electronically Signed by: DERECK AQUINO @ 07/31/2020 08:38 PM I personally read this/these film(s) with this resident Normal [facility] Comment on above: Order Comment: Yes: Add to Previous draw if able CT CHEST W CONTRASTon 2020 CT CHEST W CONTRAST [facility] Department of Radiology [address] [place] [id number] ======== Patient Name: JARETT KEBEDE : 1965 Sex: F Age: Race: White Pt. Location: [facility] Patient Status: I Ordered Date: 07/31/2020 6:30:00 PM Completed Date: 07/31/2020 07:47 PM Requesting Provider: PARDEEP MCBRIDE Attending Provider: GUSTABO GARCIA Report Copy To: Signs & Symptoms: Emphysema History: See Comments Comments: Mass (Lesion) Exam: CT CHEST W CONTRAST ======== CT CHEST W CONTRAST 07/31/2020 7:47 PM [...] mediastinal adenopathy by size criteria. Electronically signed: Dereck Aquino. Transcribed by: [email or web address], User Resident: DERECK AQUINO Electronically Signed by: DERECK AQUINO @ 07/31/2020 08:21 PM I personally read this/these film(s) with this resident Normal [facility] Comment on above: Order Comment: Yes: Add to Previous draw if able LIPASE BLOODon 07-31-2020 Lipase [Catalytic activity/Vol] U/L Low 11-82 [facility] Comment on above: Order Comment: Fluid Collection Performed By: #### 9 9931, 81362, 18437 ####[facility] [place] [address], [facility] LIVER BATTERYon 07-31-2020 Albumin [Mass/Vol] 2.6 g/dL Low 3.5-5.7 [facility] Comment on above: Order Comment: Fluid Collection Performed By: #### 9 9937, 05165, 98789 ####[facility] [place] [address], [facility] ALKALINE PHOSPH 56 IU/L Normal 34-104 [facility] Comment on above: Order Comment: Fluid Collection Performed By: #### 9 9909, 57446, 35114 ####[facility] [place] [address], [place] ALT [Catalytic activity/Vol] 13 U/L Normal 7-52 [facility] Comment on above: Order Comment: Fluid Collection Performed By: #### 9 9909, 68195, 56020 ####[facility] [place] [address], [place] AST [Catalytic activity/Vol] 13 U/L Normal 13-39 [facility] Comment on above: Order Comment: Fluid Collection Performed By: #### 9 9909, 54227, 16846 ####[facility] [place] [address], [place] Bilirubin [Mass/Vol] 0.6 mg/dL Normal 0.3-1.0 [facility] Comment on above: Order Comment: Fluid Collection Performed By: #### 9 9909, 12810, 34677 ####[facility] [place] [address], [place] Bilirubin.direct [Mass/Vol] 0.1 mg/dL Normal 0.0-0.2 [facility] Comment on above: Order Comment: Fluid Collection Performed By: #### 9 9909, 56456, 65825 ####[facility] [place] [address], [place] Protein [Mass/Vol] 6.0 g/dL Normal 6.0-8.3 [facility] Comment on above: Order Comment: Fluid Collection Performed By: #### 9 9909, 08589, 51193 ####[facility] [place] [address], [place] Vital Signs Date Time Vital Sign Value Performing Clinician Facility 01-10-2022 15:53-0400 Blood Pressure Location Zakiya SAMAN [facility] 01-10-2022 15:53-0400 Body temperature 97.52 [degF] Zakiya SAMAN [facility] 01-10-2022 15:53-0400 Diastolic blood pressure 84 mm[Hg] Zakiya DAVISON [facility] 01-10-2022 15:53-0400 Heart rate 70 /min Zakiya SAMAN [facility] 01-10-2022 15:53-0400 SaO2% (BldA) [Mass fraction] 95 % Zakiyazainab DAVISON [facility] 01-10-2022 15:53-0400 Systolic blood pressure 144 mm[Hg] Zakiya DAVISON [facility] 09-01-2021 15:15-0500 Body temperature 98 [degF] Albin Bruno Other [facility] Other 09-01-2021 15:15-0500 Diastolic blood pressure 78 mm[Hg] Albin Bruno Other [facility] Other 09-01-2021 15:15-0500 Systolic blood pressure 123 mm[Hg] Albin Bruno Other [facility] Other Encounters Encounter Date Encounter Type Care Provider Facility Start: 03-18-2025 ambulatory ESCROW AGENT Ann L Preethi Facil ity: MARTHA Gray Start: 03-02-2025 End: 03-02-2025 ambulatory ESCROW AGENT Ann L Preethi Facility:[facility] Jackie campos Start: 11-25-2024 End: 11-25-2024 ambulatory ESCROW AGENT Ann L Preethi Facility:[facility] Start: 10-09-2024 End: 10-09-2024 ambulatory ESCROW AGENT Ann L Preethi Facility:[facility] Start: 10-01-2024 End: 10-02-2024 Lab Drop off Ann L Preethi [facility] Start: 10-01-2024 End: 10-02-2024 ambulatory ESCROW AGENT Ann L Preethi [place] Start: 09-23-2024 End: 09-23-2024 ambulatory ESCROW AGENT Ann L Preethi Facility:[facility] Start: 06-25-2024 End: 06-25-2024 ambulatory Ann L Obermeyer Facility:[facility] Start: 05-05-2024 End: 05-05-2024 ambulatory ESCROW AGENT Ann L Preethi Facility:[facility] Start: 05-01-2024 End: 05-01-2024 ambulatory ESCROW AGENT Ann L Preethi Facility: [facility] Start: 03-20-2024 End: 03-20-2024 ambulatory Ann L Obermeyer [facility] Work Phone: Start: 03-20-2024 End: 03-20-2024 Patient encounter procedure SURFACE HYDROLOGIST-C Ann Obermeyer Work Phone: [facility] [address] Work Phone: Start: 02-14-2024 End: 02-14-2024 ambulatory ESCROW AGENT Ann L Preethi Facility: [facility] Start: 11-14-2023 End: 11-14-2023 ambulatory ESCROW AGENT Ann L Preethi Facility:[facility] Start: 11-12-2023 End: 12-12-2023 ambulatory ESCROW AGENT Ann L Preethi Facility:[id number] Start: 11-08-2023 End: 11-08-2023 ambulatory Sunshine Bryson [facility] Work Phone: Start: 11-08-2023 End: 11-08-2023 Departed Referred DPM Sunshine Bryson Work Phone: [facility] Start: 11-23-2022 End: 11-24-[address] ZAKIYA DAVISON Facility:[facility] Start: 10-05-2022 End: 10-06-[address] ZAKIYA DAVISON Facility:[facility] Start: 09-11-2022 End: 09-12-[address] ZAKIYA DAVISON Facility:[facility] Start: 08-17-2022 End: 08-18-[address] DOCTOR ULLOA Facility:[facility] Start: 08-14-2022 End: 08-15-[address] ZAKIYA DAVISON Facility:[facility] Start: 07-18-2022 End: 07-19-[address] ZAKIYA DAVISON Facility:[facility] Start: 06-05-2022 End: 06-06-[address] ZAKIYA DAVISON Facility:[facility] Start: 05-22-2022 End: 05-23-[address] ZAKIYA DAVISON Facility:[facility] Start: 04-17-2022 End: 04-18-[address] ZAKIYA DAVISON Facility:[facility] Start: 03-27-2022 End: 03-28-[address] ZAKIYA DAVISON Facility:[facility] Start: 03-07-2022 End: 03-08-[address] ZAKIYA DAVISON Facility:[facility] Start: 02-09-2022 End: 02-10-[address] ZAKIYA DAVISON Facility:[facility] Start: 02-02-2022 End: 02-03-[address] ZAKIYA DAVISON Facility:[facility] Start: 01-12-2022 End: 01-12-2022 Patient encounter procedure MD Shay Baldwin Work Phone: [facility] [address] Start: 01-10-2022 End: 01-10-2022 Patient encounter procedure Zakiya DAVISON [facility] Start: 12-26-2021 End: 12-26-2021 Patient encounter procedure Zakiya DAVISON [facility] Start: 12-07-2021 End: 12-08-[address] ZAKIYA DAVISON Facility:[facility] Start: 09-08-2021 End: 09-08-2021 ambulatory Albin Bruno Other [facility] Other Start: 09-08-2021 Telephone encounter Albin Bruno [facility] Start: 09-01-2021 End: 09-01-2021 ambulatory Albin Bruno Other [facility] Other Start: 09-01-2021 Office outpatient ne w 45 minutes Albin Bruno [facility] Start: 07-31-2020 End: 08-07-2020 Evaluation and management of inpatient [place] Facility:[facility] Procedures Date Procedure Procedure Detail Performing Clinician Start: 08-04-2020 DRAINAGE OF RETROPERITONEUM, PERCUTANEOUS APPROACH, DIAGN JOVANI GOLD Start: 07-16-2017 Appendectomy Ann bautista Start: 07-16-2016 Pleural effusion (disorder) Ann Oro Start: 07-16-1999 Hysterectomy Zakiya ENRIQUE Colon part (body structure) Zakiya DAVISON Ileostomy operation Zakiya DAVISON Adrian gatica n, device (physical object) Zakiya DAVISON Pyoderma (disorder) Ann hernandez Comment on above: debrasions and drain ing. Surgical procedure Ann marques Payers Date Payer Category Payer Medicaid [id number] 2023 Private Health Insurance [id number] 2023 Self-pay [id number] 1965 Unknown [id number] 2.16.840.1.102526.3.579.2.647 1963 Unknown [id number] 2.16.840.1.596265.3.579.2.593 1963 Unknown [id number] 2.16.840.1.408591.3.579.2.593 1963 Unknown [id number] 2.16.840.1.845769.3.579.2.593 1963 Unknown [id number] 2.16.840.1.622530.3.579.2.593 1963 Unknown [id number] 2.16.840.1.551316.3.579.2.593 1963 Unknown [id number] 2.16.840.1.231545.3.579.2.593 1963 Unknown [id number] 2.16.840.1.312284.3.579.2.593 1963 Unknown [id number] 2.16.840.1.889512.3.579.2.593 1963 Unknown [id number] 2.16.840.1.665989.3.579.2.593 1963 Unknown [id number] 2.16.840.1.521608.3.579.2.593 1963 Unknown [id number] 2.16.840.1.523772.3.579.2.593 1963 Unknown [id number] 2.16.840.1.836629.3.579.2.593 1963 Unknown [id number] 2.16.840.1.381261.3.579.2.593 1963 Unknown [id number] 2.16.840.1.659263.3.579.2.593 1963 Unknown [id number] 2.16.840.1.008560.3.579.2 1963 Unknown [id number] 2.16.840.1.936127.3.579. 1963 Unknown [id number] 2.16.840.1.986951.3.579. 1963 Unknown [id number] 2.16.840.1.249413.3.579. 1963 Unknown [id number] 2.16.840.1.131618.3.579. 1963 Unknown [id number] 2.16.840.1.326599.3.579. 1963 Unknown [id number] 2.16.840.1.335724.3.579. 1963 Unknown [id number] 2.840.1.069174.3.579. 1963 Unknown [id number] 2.840.1.087493.3.579. 1963 Unknown [id number] 2.840.1.491906.3.579. 1963 Unknown [id number] 2.840.1.504563.3.579. 1963 Unknown [id number] .840.1.984170.3.579. 1963 Unknown [id number] 2.16.840.1.760995.3.579. 1963 Unknown [id number] 2.16.840.1.681635.3.579. 1965 Unknown [id number] 2.16.840.1.601141.3.579. 1965 Unknown [id number] 2.16840.1.304610.3.579. 1963 Unknown [id number] 2.16.840.1.858090.3.579.2.727 1961 Medicaid [id number] 1961 Medicare [id number] 1961 Medicare [id number] Medicare Medicare Outpatient [id number] Unknown [id number] 2.16.840.1.552512.3.579.2.531 Unknown [id number] 2.16.840.1.925291.3.579.2.531 Unknown [id number] 2.16.840.1.905498.3.579.2.531 Social History Date Type Detail Facility Tobacco Unknown if ever smoked [facility] Other Comment on above: denies Sex Assigned At Female [facility] Other Start: 11-27-2018 End: 04-30-2024 Tobacco smoking status Ex-smoker (finding) [facility] Tobacco smoking status Never [facility] Start: 1965 Sex Assigned At Female [facility] Sexual Orientation [facility] Start: 10-27-2009 Sex Female (finding) [facility] Functional Status Date Assessment Result Facility 01-10-2022 Functional Status N/A [facility] Clinical Notes 09-01-2021 to 10-09-2024 Note Date & Type Note Facility 10-09-2024 Note Nurse Consultation N ote Reason for Visit patient came IO for ear wash on her left ear Medications atenolol 50 mg Tab, 50 mg, Oral, Daily, 3 refills hydrochlorothiazide-triamterene 25 mg-37.5 mg Tab, 1 tab(s), Oral, Daily, 3 refills hydrOXYzine pamoate 25 mg Cap, See Instructions Januvia 50 mg Tab, 50 mg= 1 tab(s), Oral, Daily, 1 refills Macrobid 100 mg Cap, 100 mg= 1 cap(s), Oral, BID multivitamin with minerals ondansetron 4 mg Tab, See Instructions predniSONE 5 mg Tab, See Instructions traMADOL 50 mg Tab traZODONE 100 mg Tab, See Instructions Allergies Augmentin (Sickness) Bactrim (bloody stool) Latex Red Dye (insomnia) calcium channel blockers (tachycardia) vancomycin (itching) [facility] 11-13-2023 Note [id number] #1.00TIFF [facility] 11-09-2023 Note [id number] #1.00TIFF [facility] 09-01-2021 Evaluation note Encounter Date Diagnosis [...] antibiotic treatment at home (ICD-10 - Z79.2) [facility] Other Evaluation + Plan note Future Appointments Appointment Date:01/10/2022 04:00:00 PM Scheduled Provider:Zakiya DAVISON DO Location:[facility] Appointment Type:FM Open Future Scheduled Tests Radiology* XR Abdomen 1 View 09/21/21 [facility] Evaluation + Plan note Future Appointments Appointment Date:02/20/2022 03:30:00 PM Scheduled Provider: Location:[facility] Appointment Type:FM Medicare Wellness Subsequent Future Scheduled Tests Radiology* XR Abdomen 1 View 09/21/21 [facility] Evaluation + Plan note Future Appointments Appointment Date:10/09/2024 01:40:00 PM Scheduled Provider: Location:[facility] Appointment Type: Nurse Visit [facility] Evaluation + Plan note Future Appointments Appointment Date:10/09/2024 01:40:00 PM Scheduled Provider: Location:[facility] Appointment Type: Nurse Visit Diagnostic Tests Pending * Urine Culture 10/01/24 [facility] evaluation noteNo [facility] Other evaluation noteNo assessment information available [facility] Work Phone: Hisgshy general Narrative - Reported* Type Description Date Surgical History hysterectomy Surgical History partial colon removal and rever isela of colostomy Surgical History appendectomy [facility] Other Hospital course Narrative No data available for this section [facility] Hospital Discharge instructions No data available for this section [facility] Progress note No data available for this section [facility] Summary Purpose Family History No Family History [...] 2:54pm Hospital Course Note MR#: [id number] I [facility] Pt. Name: Jarett Kebede Admitted: 07/31/2020 Discharged: 08/07/2020 Date of : 1965 Physician: Jono Valdivia MD DISCHARGE SUMMARY DIAGNOSIS AT ADMISSION: [...] and content) DATE CREATED AUTHOR 08/09/[address] [facility] DATE CREATED AUTHOR AUTHOR'S ORGANIZ ATION 11/28/2022 [facility] DATE CREATED AUTHOR AUTHOR'S ORGANIZ ATION 07/04/2024 [facility] DATE CREATED AUTHOR AUTHOR'S ORGANIZ ATION 10/04/2024 [facility] DATE CREATED AUTHOR AUTHOR'S ORGANIZ ATION 10/06/2024 [facility] DATE CREATED AUTHOR AUTHOR'S ORGANIZ ATION 10/17/2024 [facility] DATE CREATED AUTHOR AUTHOR'S ORGANIZ ATION 03/18/2025 [facility] Care Team (unrecognized sect ion and content) [...] BE BASED ON THE PRIMARY CLINICAL RECORDS. [facility]. provides no warranty or guarantee of the accuracy or completeness of information in this document.
== END 2025-03-18 16:18 | disposition home or self-care (01) ==
PROVIDERS: PCP Nurse Practitioner; Visit Provider Nurse Practitioner
DX: M25.572 Pain in left ankle and joints of left foot (principal); K46.9 Unspecified abdominal hernia without obstruction or gangrene; M79.89 Other specified soft tissue disorders; E11.9 Type 2 diabetes mellitus without complications; M25.571 Pain in right ankle and joints of right foot; Z53.20 Procedure and treatment not carried out because of patient's decision for unspecified reasons; M19.072 Primary osteoarthritis, left ankle and foot; M19.071 Primary osteoarthritis, right ankle and foot; M77.32 Calcaneal spur, left foot; M77.31 Calcaneal spur, right foot
CPT/HCPCS: 73610

== ENCOUNTER 2025-05-26 13:58 | Outpatient (OUT) | payer MEDICARE, MEDICAID, SELFPAY ==
--- OUTSIDE RECORDS SUMMARY | 2023-12-26 06:15 | XMS_ITS ---
Author Organization [facility] in [place] Address [address] [place] [address] Care Team Providers Care Assembler [employer] Leads Name Role Phone August Dunham MD Primary Care Provider Jaren Alarcon [phone] REASON FOR VISIT 3 week f/u Encounters Encounter Location Date Provider Diagnosis [facility] (PODIATRY) [address] [place] [address] [place] [address] 12/26/2023 Jaren Bryson Plan Of Treatment No Information Progress Notes * Haley KEBEDE MDOB: [birth year] (59 yo F)Acc No.[id number]:12/26/2023 UNLOCKED PROGRESS NOTE Progress Note Patient: Lily WALLS Haley Vasquez :?Jaren Bryson DPM, MSDOB:1965???Age: 58 Y???Sex:FemaleDate:4Phone:[phone]:[address] [place], [place] [id number]:August Dunham MD Subjective: * Chief Complaints: * 1 . 3 week f/u. * Medical History: Objective: * Vitals: Assessment: Plan: * Treatment: * * Electronic signature of Jaren Bryson DPM on 05/26/2025 at 02:01 PM ESTSign off status: PendingVisit Status:?CANC (Cancelled) * Provider: Anitra Bryson DPM, MS Date: 0 12/26/2023 Generated for Printing/Faxing/eTransmitting on:?05/26/2025 02:01 PM EST
--- OUTSIDE RECORDS SUMMARY | 2024-05-19 10:00 | XMS_ITS ---
Author Organization The [facility] in [place] Address [address] [place] [address] Care Team Providers Care Dice Table Person Name Role Phone August Dunham MD Primary Care Provider Spencer Harris Unavailable [phone] REASON FOR VISIT 1YEAR-RHEUMATOID NODULES Encounters Encounter Location Date Provider Diagnosis Pulmonary Medicine [address] [address] 05/19/2024 Spencer Neff Plan Of Treatment No Information Progress Notes * Haley KEBEDE MDOB: [birth year] (59 yo F)Acc No.[id number]:05/19/2024 UNLOCKED PROGRESS NOTE Follow Up Patient: Lily WALLS Haley Vasquez :?Spencer Neff DODOB:1965???Age:58 Y ???Sex:FemaleDate:4Phone:[phone]:[address] [place], [place] [address]Pcp:August Dunham MD Subjective: * Chief Complaints: * 1 . 1YEAR-RHEUMATOID NODULES. * Medical History: Objective: * Vitals: Assessment: Plan: * Treatment: * * Electronic signature of Spencer Neff DO on 05/26/2025 at 02:02 PM ESTSign off status: PendingVisit Status:?OFF CANC (OFFICE CANCEL) * Provider: Stanley Neff DO Date: 07/19/2023 Generated for Printing/Faxing/eTransmitting on:?05/26/2025 02:02 PM EST
--- OUTSIDE RECORDS SUMMARY | 2024-05-20 05:30 | XMS_ITS ---
Author Organization The [facility] in [place] Address [address] [place] [address] Care Team Providers Care Recorder Of Deeds Name Role Phone August Dunham MD Primary Care Provider Spencer Harris Unavailable [phone] REASON FOR VISIT 1YEAR-RHEUMATOID NODULES Encounters Encounter Location Date Provider Diagnosis Pulmonary Medicine [address] [address] 05/20/2024 Spencer Neff Plan Of Treatment No Information Progress Notes * Haley KEBEDE MDOB: [birth year] (59 yo F)Acc No.[id number]:05/20/2024 UNLOCKED PROGRESS NOTE Follow Up Patient: Lily WALLS Haley Vasquez :?Spencer Neff DODOB:1965???Age:58 Y ???Sex:FemaleDate:4Phone:[phone]:[address] [place], [place] [phone]:August Dunham MD Subjective: * Chief Complaints: * 1 . 1YEAR-RHEUMATOID NODULES. * Medical History: Objective: * Vitals: Assessment: Plan: * Treatment: * * Electronic signature of Spencer Neff DO on 05/26/2025 at 02:01 PM ESTSign off status: PendingVisit Status:?CANC (Cancelled) * Provider: Stanley Neff DO Date: 07/20/2023 Generated for Printing/Faxing/eTransmitting on:?05/26/2025 02:01 PM EST
--- OUTSIDE RECORDS SUMMARY | 2024-08-12 06:00 | XMS_ITS ---
Author Organization The [facility] in [place] Address [address] [place] [address] Care Team Providers Care Deck Hand Name Role Phone August Dunham MD Primary Care Provider Chris janis Neff Spencer Unavailable [phone] REASON FOR VISIT PULM NODULES/RA Encounters Encounter Location Date Provider Diagnosis Pulmonary Medicine [address] [address] 08/12/2024 Spencer Neff Plan Of Treatment No Information Progress Notes * Haley KEBEDE MDOB: [birth year] (59 yo F)Acc No.[id number]:08/12/2024 UNLOCKED PROGRESS NOTE Follow Up Patient: Lily WALLS Haley Vasquez :?Spencer Neff, DODOB:1965???Age:58 Y ???Sex:FemaleDate:08/12/2024Phone:[phone]:[address] [place], [place] [phone]:August Dunham MD Subjective: * Chief Complaints: * 1 . PULM NODULES/RA. * Medical History: Objective: * Vitals: Assessment: Plan: * Treatment: * * Electronic signature of Spencer Neff DO on 05/26/2025 at 02:03 PM ESTSign off status: PendingVisit Status:?R/S (Rescheduled) * Provider: Stanley Neff DO Date: 0 08/12/2024 Generated for Printing/Faxing/eTransmitting on:?05/26/2025 02:03 PM EST
--- OUTSIDE RECORDS SUMMARY | 2024-09-09 06:00 | XMS_ITS ---
Author Organization The [facility] in [place] Address [address] [place] [address] Care Team Providers Care Devulcanizer Head Name Role Phone August Dunham MD Primary Care Provider Chris janis [place] Spencer Unavailable [phone] REASON FOR VISIT PULM NODULES/RA Encounters Encounter Location Date Provider Diagnosis Pulmonary Medicine [address] [address] 09/09/2024 Spencer Neff Plan Of Treatment No Information Progress Notes * Haley KEBEDE MDOB: [birth year] (59 yo F)Acc No.[id number]:09/09/2024 UNLOCKED PROGRESS NOTE Follow Up Patient: Lily WALLS Haley Vasquez :?Spencer Neff, DODOB:1965???Age:58 Y ???Sex:FemaleDate:09/09/2024Phone:[phone]:[address] [place], [place] [phone]:August Dunham MD Subjective: * Chief Complaints: * 1 . PULM NODULES/RA. * Medical History: Objective: * Vitals: Assessment: Plan: * Treatment: * * Electronic signature of Spencer Neff DO on 05/26/2025 at 02:03 PM ESTSign off status: PendingVisit Status:?CANC (Cancelled) * Provider: Stanley Neff DO Date: 0 09/09/2024 Generated for Printing/Faxing/eTransmitting on:?05/26/2025 02:03 PM EST
--- OUTSIDE RECORDS SUMMARY | 2025-05-26 14:01 | XMS_ITS | Clinical Summary ---
Author Organization [facility] Address [address] [place] [address] Care Team Providers Care Sap Technical Architect Name Role Phone Unavailable Primary Care Provider Unavailabl e Encounters DateTypeDepartmentCare LhgiQwvkdbqhjhu46/13/2025 12:05 AM EDT - 03/28/2025 11:59 PM EDTHospital Encounter [facility] Radiology External Films [address] [place] [id number] Discharge Disposition: Home or Self Care ()03/28/2025 - 03/28/2025 12:04 AM EDTHospital Encounter [facility] Radiology External Films [address] [place] [id number] Discharge Disposition: Home or Self Care ()from Last 3 Months Social History Tobacco UseTypesPacks/DayYears UsedDateSmoking Tobacco: Never AssessedUT Safety & EnvironmentAnswerDate RecordedFear of Current or Ex-PartnerNot on file 09/06/2023Emotionally AbusedNot on file09/06/2023hysically AbusedNot on file 09/06/2023Sexually AbusedNot on file4Physically or Sexually AbusedNot on file09/06/2023CommentsUnknownSex and Gender InformationValueDate RecordedSex Assigned at BirthNot on fileLegal LkwIleacs83/29/2022 9:39 PM EDT Gender IdentityChoose not to mwuddwwu98/18/2025 4:53 AM EDTSexual Orientation Choose not to pawfhucu87/18/2025 4:53 AM EDT Last Filed Vital Signs Vital SignReadingTime TakenCommentsBlood Supqizhx651/8703 11:29 AM EDT Efbiv3206 11:29 AM FNYAhbrsayggrm44.1 ??C (98.8 ??F)09/25/2018 11:29 AM EDTRespiratory Rate--Oxygen Saturation--Inhaled Oxygen Concentration--Ikjksb217 kg (241 lb 6.4 oz)09/25/2018 11:25 AM CPBIbyzww215 cm (5' 3 )09/25/2018 11:24 AM EDTBody Mass Index42.76009/25/2018 11:24 AM EDT Plan of Treatment Health MaintenanceDue DateLast DoneCommentsCT Meifwtqxhcmm90/06/1964Colonoscopy 1965Colorectal Cancer Fibzyjofr62/06/1964FIT-DNA1963FIT1963 FOBT1963Medicare Annual Wellness (AWV)10/20/19637783Zzocoqkftuuxf71/06/1964 Diabetes: Retinopathy Kkbzzaitw75/06/1974Depression Rbgqgxeet18/06/1976Diabetes: Urine Protein Pmayglfqj04/06/1983Pap Smear10/19/1984Adult Vjnytsi5410/19/1985 Cervical Cancer Mfihliljk14/06/1994HPV/Egmpfj1910/19/19930836Hlhbboesx37/06/2004Zoster Vaccines (1 of 2)10/19/2013Diabetes: Hemoglobin A1CCOVID-19 Vaccine ( season)504/, 10/15/2020Influenza Vaccine (#1)2025HIB VaccinesAged OutNo longer eligible based on patient's age to complete this topicHPV VaccinesAged OutNo longer eligible based on patient's age to complete this topicIPV VaccinesAged OutNo longer eligible based on patient's age to complete this topicMeningococcal B VaccineAged OutNo longer eligible based on patient's age to complete this topicMeningococcal VaccineAged OutNo longer eligible based on patient's age to complete this topicPneumococcal Vaccine: Pediatrics (0 to 5 Years) and At-Risk Patients (6 to 64 Years)Aged Out No longer eligible based on patient's age to complete this topicRotavirus VaccinesAged OutNo longer eligible based on patient's age to complete this topic Procedures Procedure NamePriorityDate/TimeAssociated DiagnosisCommentsXR TRANSFER OF OUTSIDE OXVCREabakjh73/13/2025 12:[address] TRANSFER OF OUTSIDE TCIMJQunzpps47/13/2025 12:00 AM EDT HEMOGLOBIN R7FBrptebb41/21/2019 12:19 PM EST from Last 3 Months or Most Recently Relevant to Health Maintenance Results * XR transfer of outside films (03/28/2025 12:05 AM EDT)Specimen (Source) Anatomical Location / LateralityCollection Method / VolumeCollection Time Received Time Narrative IMAGING - 03/28/2025 1:17 PM EDT This order has been auto-finalized and does not contain a result. Authorizing ProviderResult TypeResult StatusJustlissette Vivar MDIMG XR PROCEDURESFinal ResultPerforming OrganizationAddressCity/State/ZIP CodePhone Number IMAGING * CT transfer of outside films (03/28/2025 12:00 AM EDT)Specimen (Source) Anatomical Location / LateralityCollection Method / VolumeCollection Time Received Time Narrative IMAGING - 03/28/2025 1:17 PM EDT This order has been auto-finalized and does not contain a result. Authorizing ProviderResult TypeResult StatusJustlissette Vivar MDIMG CT PROCEDURESFinal ResultPerforming OrganizationAddressCity/State/ZIP CodePhone Number IMAGING * Hemoglobin A1C (09/05/2018 12:19 PM EST)ComponentValueRef RangeTest Method Analysis TimePerformed AtPathologist SignatureHemoglobin A1C5.34.0 - 6.0 %LAB CONVERSIONSEstimated Average Xhdbgus26252 - 126 mg/dLLAB CONVERSIONSSpecimen (Source)Anatomical Location / LateralityCollection Method / VolumeCollection TimeReceived Time09/05/2018 12:19 PM EST09/05/2018 12:19 PM EST Narrative Authorizing ProviderResult TypeResult StatusStedilma BLUE BLOOD ORDERABLESFinal ResultPerforming OrganizationAddressCity/State/ZIP CodePhone Number LAB CONVERSIONS from Last 3 Months or Most Recently Relevant to Health Maintenance Insurance
--- OUTSIDE RECORDS SUMMARY | 2025-05-26 14:03 | XMS_ITS | Clinical Summary ---
Author Organization [facility] Address [address] [place] [address] Care Team Providers Care Sponge Buffer Name Role Phone Unavailable Primary Care Provider Unavailabl e Social History Tobacco UseTypesPacks/DayYears UsedDateSmoking Tobacco: Never Assessed CommentsUnknownSex and Gender InformationValueDate RecordedSex Assigned at Not on fileLegal WlvVunjht27/15/2023 6:35 PM EDTGender IdentityNot on fileSexual OrientationNot on file Plan of Treatment Not on file
--- OUTSIDE RECORDS SUMMARY | 2025-05-26 14:03 | XMS_ITS | Patient Health Record ---
Author Organization [facility] [place] Address [address] [place] [address] Care Team Providers Care Mental Health Program Manager Name Role Phone Roly ADAMS, August Primary Care Provider Spencer Harris [facility] [phone] Allergies Allergen (clinical drug ingredient) Drug/Non Drug Allergy documented on EMR Reaction Allergy Type Onset Date Status sulfamethoxazole / trimethoprim Bactrim DS rectal bleeding Drug Allergy ActiveciprofloxacinCiprohivesDrug AllergyActivehydroxychloroquinePlaquenil UnknownDrug AllergyActivevancomycinVancomycin HClitchingDrug AllergyActive calcium channel maria c (FN)Calcium Channel Blockersheart poundingDrug Allergy ActivecefdinirCefdinirvomitingDrug AllergyActivecodeineCodeineunknownDrug AllergyActivefolic acidFolic AcidunknownDrug AllergyActiveLatexLatexUnknown AllergyActivemeloxicamMeloxicamunknownDrug AllergyActivemethotrexateMethotrexate unknownDrug AllergyActivelevofloxacinLevofloxacinhivesDrug AllergyActive Reason For Referral No Information Medications Medication SIG (Take, Route, Frequency, Duration) Notes Start Date End Date Status Hyoscyamine Sulfate SL 0.125 MG 1 tablet under the tongue and allow to dissolve as needed Sublingual Three times a day ActivehydrOXYzine Pamoate 25 MGOral; Duration: 10 DaysActivehydrOXYzine Pamoate 25 MGTAKE 1 CAPSULE BY MOUTH 4 TIMES A DAY NEEDED FOR ANXIETY Oral; Duration: 10 DaysActiveColace 100 MG1 capsule as needed Orally Once a dayActive Triamterene-HCTZ 37.5-25 MG1 tablet in the morning Orally Once a dayActive Clindamycin HCl 300 MG2 capsules Orally every 8 hrs; Duration: 7 days10/09/2023 ActivetraZODone HCl 100 MGOral; Duration: 90 DaysActiveClindamycin HCl 300 MG1 capsule Orally every 12 hrs; Duration: 7 xezyYjapcq76/26/2024ctivetraZODone HCl 50 MG1 tablet at bedtime as needed Orally Once a dayActiveClindamycin HCl 300 MG 2 capsules Orally every 8 hours; Duration: 14 days10/01/2023ctivetraMADol HCl 50 MGOral; Duration: 30 DaysActiveAtenolol 50 MG1 tablet Orally Once a dayActive predniSONE 10 MG1 tablet Orally Once a dayActiveOndansetron HCl 4 MG 1 tablet Orally Once a day; Duration: 30 days As needed PO q6H prn nausea 11/06/2023ctiveOndansetron 4 MG1 tablet on the tongue and allow to dissolve Orally Once a dayActiveMultivitamin -1 tablet Orally Once a dayActive Immunizations Vaccine Route Administration Date Status Comme nts SARS-COV-2 (COVID 19 Pfizer 30mcg/0.3mL) Unknown 11/04/2020 Administered Social History Tobacco Use: Social History Observation Description Date Details (start date - stop date) Former Smoker NA - 11/13/1997 Tobacco Use/Smoking Question Answer Notes Patient is a former smoker When did you stop smoking?11/13/1997 Problems Problem Type SNOMED Code ICD Code Onset Dates Problem Status W/U Status Risk Notes Problem Morbid obesity (disorder) (85949 6002) Morbid (severe) obesity due to excess calories (E66.01) ActiveconfirmedProblemNon-pressure chronic ulcer of other part of left lower leg with fat layer exposed (L97.822)ActiveconfirmedProblemRheumatoid arthritis (13854721)Rheumatoid arthritis, unspecified (M06.9)ActiveconfirmedProblemChronic osteomyelitis (92449196)Other chronic osteomyelitis, unspecified site (M86.60) ActiveconfirmedProblemChronic osteomyelitis of ankle and/or foot (272465347) Other chronic osteomyelitis, right ankle and foot (M86.671)Activeconfirmed ProblemLong-term current use of systemic steroid (048533769328199)assisted (current) use of systemic steroids (Z79.52)ActiveconfirmedProblemPyoderma gangrenosum (06485928)Pyoderma gangrenosa (L88)ActiveconfirmedProblemEx-tobacco user (finding) (257269928)History of tobacco abuse (Z87.891)Activeconfirmed ProblemChronic foot ulcer, limited to breakdown of skin, right (L97.511)Active confirmedProblemRheumatoid lung disease (284394299)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)ActiveconfirmedProblemOsteomyelitis (19456509)Osteomyelitis of ankle and foot (M86.9)ActiveconfirmedProblemAnkle ulcer (450724447)Chronic ulcer of right ankle with fat layer exposed (L97.312)ActiveconfirmedProblemBody mass index 40+ - morbidly obese (007613292)Body mass index [BMI] 50.0-59.9, adult (Z68.43) Activeconfirmed Encounters Encounter Location Date Provider Diagnosis Pulmonary Medicine [place] [address] [place] [address] 08/11/2024 [facility] Pulmonary Medicine [address] [place] [address]/24/2025 [facility] Plan Of Treatment Pending Test Test Name Order Date AFB Specimen Processing 11/08/2023 Acid Fast Smear 11/08/2023 Acid Fast Culture 11/08/2023 Fungus Stain 11/08/2023 Insurance Providers Payer Name Payer Address Payer Phone Subscriber Number Group Number Insured Name Patient Relationship to Insured Coverage Start Date Coverage End Date [employer] [address] [place] [address] [id number] Draper - patient is the [id number] 2022 Medical (General) History Medical History History ICD Code Pyoderma gangrenosum L88 RA (rheumatoid arthritis) M06.9 Sigmoid diverticulosis K57.30 OA (osteoarthritis) M19.90 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
--- OUTSIDE RECORDS SUMMARY | 2025-05-26 14:03 | XMS_ITS | Clinical Summary ---
Author Organization [facility] Address [address] [place] [address] Care Team Providers Care Information Technology Internship Name Role Phone RobertAnjel Primary Care Provider [phone] Social History Tobacco UseTypesPacks/DayYears UsedDateSmoking Tobacco: Never Assessed CommentsUnknownSex and Gender InformationValueDate RecordedSex Assigned at Not on fileLegal JrhMrnzro93/02/2012 9:09 AM ESTGender IdentityNot on fileSexual OrientationNot on file Plan of Treatment Health MaintenanceDue DateLast DoneCommentsAnxiety Gxszcnoec49/06/1982Depression Meuidixvx00/06/1982HIV Nxinferlz78/06/1982Hepatitis C Nllqoalxf35/06/1982 DTaP,Tdap,Td Vaccine (1 - Tdap)10/19/1982Cervical Cancer Abmuvvyzz79/06/1985 Mammogram Kctzenbtk05/06/2004CT Ctnzydupvgaf96/06/2009Cologuard (FIT-DNA) 10/19/20084303Mfpohfmrkxr09/06/2009Colorectal Cancer Ateazpgam51/06/2009Diabetes Sgealyilc08/06/2009Fecal Occult Blood10/19/2008Lipid Jvmgbiwqe78/06/2009 Eaonhswqurzcs67/06/2009Pneumococcal Vaccine: 50+ (1 of 1 - PCV)10/19/2013 Shingrix Vaccine (1 of 2)10/19/2013Covid-19 Vaccine (1 - 2024- season) 2025Influenza Vaccine (#1)2025RSV Vaccine (1 - 1-dose 75+ series) 10/19/2038 Insurance Care Teams Team MemberRelationshipSpecialtyStart DateEnd Date Anjel Jones [address] [place] [address] [facility]10/26/00
--- OUTSIDE RECORDS SUMMARY | 2025-05-26 14:11 | XMS_ITS | CCD ---
Author Organization [facility] Care Team Providers Care Assignment Desk Editor Name Role Phone DC Procedure Practitioner Unavailab ZAKIYA Everett Primary Care Unavailable JOVANI GOLD Surgeon Unavailable JONO VALDIVIA Attending Unavailable JONO VALDIVIA Admitting Unavailable SELF, REFERRED Referring Unavailable Zakiya DAVISON Primary Care Physician Albin Bruno MD Shay Baldwin Primary Care Provider MD Shay Baldwin Attending Provider [phone] SAMAN, DR ZAKIYA Moralez Primary Care Unavailable SUNSHINE JONES Attending Unavailable KAREN, SUNSHINE Vidal Admitting Unavailable SAMAN, DR ZAKIYA Moralez Primary Care Unavailable SUNSHINE JONES Attending Unavailable SUNSHINE JONES Admitting Unavailable SAMAN, DR ZAKIYA Moralez Primary Care Unavailable SUNSHINE JONES Attending Unavailable KAREN, SUNSHINE Vidal Admitting Unavailable SAMAN, DR ZAKIYA Moralez Primary Care Unavailable PEPE RUBIO Attending Unavaila PEPE Vidal Admitting Unavaila dinah DAVISON, DR ZAKIYA oMralez Primary Care Unavailable SUNSHINE JONES Attending Unavailable SUNSHINE JONES Admitting Unavailable SAMAN, DR ZAKIYA Moralez Primary Care Unavailable SUNSHINE JONES Attending Unavailable SUNSHINE JONES Admitting Unavailable SAMAN, DR ZAKIYA Moralez Primary Care Unavailable SUNSHINE JONES Attending Unavailable SUNSHINE JONES Admitting Unavailable SAMAN, DR ZAKIYA Moralez Primary Care Unavailable PRAVIN HODGES Attending Unavailable PRAVIN HODGES Admitting Unavailable SAMAN, DR ZAKIYA Moralez Primary Care Unavailable SUNSHINE JONES Attending Unavailable SUNSHINE JONES Admitting Unavailable MISC, DR ALVAREZ Consulting Unavailable SAMAN, DR ZAKIYA Moralez Primary Care Unavailable HAL, DR PERLA Attending Unavailable HAL, DR PERLA Admitting Unavailable SAMAN, DR ZAKIYA Moralez Primary Care Unavailable NEEL LANDEROS Attending Unavailable NEEL LANDEROS Admitting Unavailable SAMAN, DR ZAKIYA Moralez Primary Care Unavailable KAREN, SUNSHINE Vidal Attending Unavailable HIGHLJOCE, SUNSHINE Vidal Admitting Unavailable SAMAN, DR ZAKIYA Moralez Primary Care Unavailable HIGHLANDER, SUNSHINE Vidal Attending Unavailable HIGHLJOCE, SUNSHINE Vidal Admitting Unavailable SAMAN, DR ZAKIYA Moralez Primary Care Unavailable HIGHLJOCE, SUNSHINE Vidal Attending Unavailable HIGHLJOCE, SUNSHINE Vidal Admitting Unavailable Highljoce, DPM Sunshine Vidal Attending Provider [phone] Obermeysadaf, SENIOR RESIDENT CARE DIRECTOR-C Ann Worrell Attending Provider Sunshine Jones Admitting Unavailable Karen, Sunshine Vidal Attending Unavailable Obermeyer, Ann L Attending Unavailable Obermeyer, Ann L Admitting Unavailable Obermeyer, Ann L Attending Unavailable Obermeyer, Ann L Admitting Unavailable Preethi, Ann L Primary Care Physician Preethi, SUPERVISOR BOARDING Ann L Attending Unavailable Preethi, SUPERVISOR BOARDING Ann L Attending Unavailable Preethi, SUPERVISOR BOARDING Ann L Attending Unavailable Preethi, SUPERVISOR BOARDING Ann L Attending Unavailable Preethi, SUPERVISOR BOARDING Ann L Attending Unavailable Preethi, SUPERVISOR BOARDING Ann L Attending Unavailable Preethi, SUPERVISOR BOARDING Ann L Attending Unavailable Preethi, SUPERVISOR BOARDING Ann L Admitting Unavailable Preethi, SUPERVISOR BOARDING Ann L Attending Unavailable Preethi, SUPERVISOR BOARDING Ann L Admitting Unavailable Preethi, SUPERVISOR BOARDING Ann L Attending Unavailable Preethi, SUPERVISOR BOARDING Ann L Admitting Unavailable Preethi, SUPERVISOR BOARDING Ann L Attending Unavailable Preethi, SUPERVISOR BOARDING Ann L Attending Unavailable Preethi, Ann L Attending Unavailable Preethi, Ann L Attending Unavailable Preethi, Ann L Attending Unavailable Preethi, Ann L Attending Unavailable Preethi, Ann L Attending Unavailable Preethi, Ann L Admitting Unavailable Preethi, Ann L Attending Unavailable Preethi, Ann L Attending Unavailable Preethi, Ann L Attending Unavailable DOLAN, ANTHONY Referring Unavailable DOLAN, ANTHONY Referring Unavailable Allergies Allergy ClassificationReported Allergen(s)Allergy TypeDate of OnsetReaction(s) Facility (8 sources)Amoxicillin / Clavulanate; Translations: [AUGMENTIN]Drug Allergy 21-96-2431Tethiua (finding)[facility] (5 sources)Calcium Channel Blockers; Translations: [calcium channel blockers] Drug allergy (disorder)60-11-0629yfomgnoshshRde [facility] (7 sources)Contrast media; Translations: [red dye]Food allergy (disorder) 87-92-4325rsbwygixHhx [facility] Rep[facility] (1 source)dilTIAZem; Translations: [DILTIAZEM HCL]Drug Iogzbul50-66-5647Lfu [facility] Rep[facility] (11 sources)Latex; Translations: [LATEX]Propensity to adverse reactions (disorder)54-11-4821Skbanpb, Unknown ReactionThe [facility] (5 sources)Sulfamethoxazole / Trimethoprim; Translations: [Bactrim]Drug Allergy 70-58-8514Ewk [facility] (7 sources)Vancomycin; Translations: [vancomycin]Drug Wjxpaqs99-20-6325Eaqicjj ReactionThe [facility] (6 sources)Sulfamethoxazole / Trimethoprim; Translations: [sulfamethoxazole-trimethoprim]Drug Allergybloody stool, UnknownSk[facility] Other (6 sources)Vancomycin; Translations: [vancomycin]Drug Allergyitching, Unknown [facility] Other (2 sources)Amoxicillin / ClavulanateDrug AllergyUnknoNYU Langone Orthopedic [facility] Other (4 sources)CiprofloxacinDrug Soamjsl60-78-2967Icnfvox, Unknown ReactionK[facility] (6 sources)Codeine; Translations: [codeine]Drug Owvivkp50-81-9857Jvwgirh, Unknown ReactionKettering [facility] Hospital (4 sources)levoFLOXacinDrug Skdflno71-08-5584Olrdsqh, Unknown ReactionK[facility] Hospital (2 sources)Calcium Channel AntagonistsDrug allergyUnknoNYU Langone Orthopedic [facility] Other (2 sources)cefdinirDrug Myqxryo83-76-2684SunOhio[facility] (2 sources)CiprofloxacinDrug AllergyOhiohealth [facility] Hospital Repository (1 source)CodeineDrug Akxtddj21-15-7818Rur [facility] Rep[facility] (2 sources)levoFLOXacinDrug AllergyOhiohealth Berger Hospital Repository (2 sources)Calcium Channel Blocking Agents-BenzothiazepinesDrug allergy (disorder)04-45-8833Ksx [facility] Rep[facility] (3 sources)Amoxicillin; Translations: [amoxicillin]Drug Fbstglb51-54-1823Fsackva ReactionKettering Memorial Hospital (3 sources)Clavulanate; Translations: [clavulanic acid]Drug Uxtzffi50-12-0501 Unknown ReactionK[facility]tering [facility] Hospital (3 sources)Sulfamethoxazole; Translations: [sulfamethoxazole]Drug Allergy 24-43-9069Hczahkj ReactionKettering Memorial Hospital (3 sources)Trimethoprim; Translations: [trimethoprim]Drug Cwdzlll61-81-4881 Unknown ReactionKettering Memorial Hospital (1 source)CiprofloxacinDrug Xzljpcc60-62-7126QtytiiqdhKettering Memorial Hospital Repository (1 source)CodeineDrug Dnipzoq23-58-2043HbbqdsdsiKettering Memorial Hospital Repository (1 source)levoFLOXacinDrug Ucgrlkz42-52-4578FyyuttrnfKettering Memorial Hospital Repository (1 source)VancomycinDrug Gqwmyep67-04-0210XfbsxtpglKettering Memorial Hospital Repository (2 sources)Calcium Channel Blockers; Translations: [calcium channel blockers] Drug allergytaTrinity Health System (1 source)ALLERGIES NOT ON FILE; Translations: [ALLERGIES NOT ON FILE]Propensity to adverse reactions (disorder)[facility] Medications Current Medications MedicationDrug Class(es)DatesSig (Normalized)Sig (Original)amitriptyline hydrochloride 50 mg oral tablet (1 source)Tricyclic AntidepressantStart: 28-51-6098lirk 1 tablet by mouth once daily at bedtimeamitriptyline 50 mg Tab 50 mg = 1 tab(s), Oral, Once a day (at bedtime), # 30 tab(s), Refills(s) 3,Pharmacy: [facility]/pharmacy #[id number], 160, cm, 07/31/20 7:46:00 EST, Height/Length Dosing, 145, kg, 07/31/20 7:46:00 EST, Weight Dosing Start Date: 01/10/22 Status: Orderedatenolol 50 mg oral tablet (6 sources)beta-Adrenergic BlockerStart: 79-18-6573ryls 1 tablet by mouth once dailyatenolol 50 mg Tab 50 mg, Oral, Daily, # 90 tab(s), Refills(s) 3, [id number], cm, 11/14/23 14:07:00 EDT, Height/Length Dosing Start Date: 12/25/23 Status: Ordered Quantity: 90.0Unit: tab(s) Repeat number: 4Start: 83-69-4771cpyl 1 tablet by mouth once dailyatenolol 50 mg Tab 50 mg, Oral, Daily, # 90 tab(s), Refills(s) 0, [id number] 160, cm, 07/31/20 7:46:00 EST, Height/Length Dosing, 145, kg, 07/31/20 7:46:00 EST, Weight Dosing StartDate: 11/28/21 Status: Orderedtake 0.5 tablet by mouth once dailyAtenolol 25 MG 1/2 tablet Orally Once a day ActivecefTRIAXone 1000 mg injection (2 sources)Cephalosporin AntibacterialStart: 09-61-8384icdOKEPAvgz Sodium 1 GM as directed Intravenous daily for 21 days Aug, Activecephalexin 500 mg oral capsule (1 source)Cephalosporin AntibacterialStart: 53-49-2654ntbp 1 capsule by mouth every twelve hourscephalexin 500 mg Cap 500 mg = 1 cap(s), Oral, q12hr, # 20 cap(s), Refills(s) 0, [id number] 160, cm, 07/31/20 7:46:00 EST, Height/Length Dosing, 145, kg, 07/31/20 7:46:00 EST, Weight Dosing Start Date: 11/29/20 Status: OrderedColace (3 sources)Start: 43-79-1883Yfsxhx Oral, BID, Refills(s) 0 Start Date: 01/10/22 Status: Orderedtake 1 capsule by mouth every twenty-four hoursColace 100 MG 1 capsule as needed Orally Once a day Activedoxycycline hyclate 100 mg oral capsule (1 source)Tetracycline-class DrugStart: 04-42-1985vqyj 1 capsule by mouth twice dailydoxycycline hyclate 100 mg Cap 100 mg = 1 cap(s), Oral, BID, # 20 cap(s), Refills(s) 0, [id number] 160, cm, 07/31/20 7:46:00 EST, Height/Length Dosing, 145, kg, 07/31/20 7:46:00 EST, Weight Dosing Start Date: 04/07/21 Status: Orderedfolic acid 1 mg oral tablet (1 source)Start: 46-44-1385ydvz 1 tablet by mouth once dailyFolate 1 mg Tab TAKE 1 TABLET BY MOUTH EVERY DAY Start Date: 01/10/22 Status: Orderedgabapentin 300 mg oral capsule (2 sources)Anti-epileptic Agenttake 1 capsule by mouth every twelve hours Gabapentin 300 MG 1 capsule Orally twice a day ActivehydroCHLOROthiazide 25 mg / triamterene 37.5 mg oral tablet (4 sources)Potassium-sparing Diuretic, Thiazide DiureticStart: 23-68-0055ykye 1 tablet by mouth once dailyhydrochlorothiazide-triamterene 25 mg-37.5 mg Tab 1 tab(s), Oral, Daily, 90 tab(s), Refill(s) 3, [id number], cm, 11/14/23 14:07:00 EDT, Height/Length Dosing Start Date: 01/25/24 Status: Ordered Quantity: 90.0 Unit: tab(s) Repeat number: 4Start: 96-47-1475hqyy 1 tablet by mouth once dailyhydrochlorothiazide-triamterene 25 mg-37.5 mg Tab 1 tab(s), Oral, Daily, 30 tab(s), Refill(s) 5, [id number], cm, 07/31/20 7:46:00 EST, Height/Length Dosing, 145, kg, 07/31/20 7:46:00 EST, Weight Dosing Start Date: 12/23/21 Status: OrderedhydrOXYzine pamoate 25 mg oral capsule (4 sources)AntihistamineStart: 43-92-1267yjbm 1 capsule by mouth four times daily as needed for anxietyhydrOXYzine pamoate 25 mg Cap See Instructions, TAKE 1 CAPSULE BY MOUTH 4 TIMES A DAY NEEDED FORANXIETY, # 40 cap(s), Refills(s) 2, Pharmacy: [facility] [id number], 157, cm, 11/14/23 14:07:00 EDT, Height/Length Dosing Start Date: 09/01/24 Status: Ordered Quantity: 40.0 Unit: cap(s) Repeat number: 1Start: 40-50-0879qntw 1 tablet by mouth four times daily as needed for anxietyhydrOXYzine hydrochloride 25 mg Tab 25 mg = 1 tab(s), Oral, QID, PRN for anxiety, # 40 tab(s), Refills(s) 2, Pharmacy: [facility]/pharmacy #[id number], 160, cm, 07/31/20 7:46:00 EST, Height/Length Dosing, 145, kg, 07/31/20 7:46:00 EST, Weight Dosing Start Date: 07/01/21 Status: Orderedmeloxicam 10 mg oral capsule (4 sources)Nonsteroidal Anti-inflammatory DrugStart: 47-33-5682qdhj 1 mg by mouth once dailymeloxicam 10 mg oral capsule mg cap(s), Oral, Daily, Refills(s) 0 Start Date: 07/20/20 Status: Orderedtake 4 capsules by mouth every twenty-four hoursMeloxicam 10 MG 4 capsule Orally Once a day Activemethotrexate 2.5 mg oral tablet (1 source)Folate Analog Metabolic InhibitorStart: 55-00-9974fnof 4 tablets by mouth every weekTrexall 2.5 mg Tab TAKE 4 TABLETS BY MOUTH EVERY WEEK Start Date: 01/10/22 Status: OrderedMultivitamin preparation (2 sources)take 1 tablet by mouth once dailyMultivitamin - 1 tablet Orally Once a day Activemultivitamin with minerals (3 sources)Start: 88-87-1552jwmcjqdznpgu with minerals Refill(s) 0 Start Date: 01/10/22 Status: Ordered Repeat number: 1Start: 77-96-1171abjkixnlhrjh with minerals Refill(s) 0 Start Date: 01/10/22 Status: Orderedondansetron 4 mg oral tablet (2 sources)Serotonin-3 Receptor AntagonistStart: 07-66-4610goqp 1 tablet by mouth twice daily as needed for nauseaondansetron 4 mg Tab See Instructions, TAKE 1 TABLET BY MOUTH TWICE A DAY NEEDED FOR NAUSEA/VOMITING, # 30 tab(s), Refills(s) 0, Pharmacy: [id number], 157, cm, 11/14/23 14:07:00 EDT, Height/Length Dosing Start Date: 09/01/24 Status: Ordered Quantity: 30.0 Unit: tab(s) Repeat number: 1oxyCODONE hydrochloride 5 mg oral tablet (2 sources)Opioid Agonisttake 1 tablet by mouth every six hoursoxyCODONE HCl 5 MG 1 tablet as needed Orally every 6 hrs ActivepredniSONE 5 mg oral tablet (3 sources)Start: 37-89-7694okhf 2 tablets by mouth once daily in the morning predniSONE 5 mg Tab See Instructions, TAKE 2 BY MOUTH EVERY DAY IN THE MORNING, # 60 tab(s), Refills(s) 0, Pharmacy: [facility]/pharmacy #[id number], 157, cm, 11/14/23 14:07:00 EDT, Height/Length Dosing Start Date: 11/14/23 Status: Ordered Quantity: 60.0 Unit: tab(s) Repeat number: 1Start: 86-08-8309unhg 3 tablets by mouth once dailypredniSONE 5 mg Tab 15 mg = 3 tab(s), Oral, Daily, # 30 tab(s), Refills(s) 0 Start Date: 01/10/22 Status: OrderedSITagliptin 50 mg oral tablet (2 sources)Dipeptidyl Peptidase 4 InhibitorStart: 20-45-5029gwkz 1 tablet by mouth once dailyJanuvia 50 mg Tab 50 mg = 1 tab(s), Oral, Daily, # 90 tab(s), Refills(s) 1, Pharmacy: [facility]/pharmacy #[id number], 157, cm, 11/14/23 14:07:00 EDT, Height/Length Dosing Start Date: 12/19/23 Status: Ordered Quantity: 90.0 Unit: tab(s) Repeat number: 2traMADol hydrochloride 50 mg oral tablet (3 sources)Opioid AgonistStart: 60-60-5630onud 1-2 tablets by mouth twice daily as neededtraMADOL 50 mg Tab TAKE 1 TO 2 TABLETS BY MOUTH TWICE DAILY NEEDED Start Date: 10/01/24 Status: Ordered Repeat number: 1Start: 24-69-7285uutk 1 tablet by mouth twice daily as neededtramadol 50 mg oral tablet TAKE 1 TABLET BY MOUTH TWICE A DAY NEEDED Start Date: 01/10/22 Status:OrderedtraZODone hydrochloride 100 mg oral tablet (6 sources)Serotonin Reuptake InhibitorStart: 00-62-5155gccm 1 tablet by mouth once daily at bedtimetraZODONE 100 mg Tab See Instructions, TAKE 1 TABLET BY MOUTH EVERYDAY AT BEDTIME, # 90 tab(s), Refills(s) 1, Pharmacy: [id number], 157, cm, 11/14/23 14:07:00 EDT, Height/Length Dosing Start Date: 08/06/24 Status: Ordered Quantity: 90.0 Unit: tab(s) Repeat number: 1Start: 73-24-8449ypmc 0.5 tablet by mouth once daily at bedtimetraZODONE 100 mg Tab 0.5 tab, Oral, Once a day (at bedtime), # 45 EA, Refills(s) 1, Pharmacy: [facility]/pharmacy #[id number], 160, cm, 07/31/20 7:46:00 EST, Height/Length Dosing, 145, kg, 07/31/20 7:46:00 EST, We ight Dosing Start Date: 11/11/21 Status: OrderedStart: 23-18-4566soyr 1 tablet by mouth once daily at bedtimetraZODONE 100 mg Tab 100 mg = 1 tab(s), Oral, Once a day (at bedtime), # 90 tab(s), Refills(s) 1, Pharmacy: [facility]/pharmacy #[id number], 160, cm, 07/31/20 7:46:00 EST, Height/Length Dosing, 145, kg, 07/31/20 7:46:00 EST, Weight Dosing Start Date: 11/11/21 Status: OrderedtraZODone HCl ActiveTriamterene (2 sources)Potassium-sparing DiureticTriamterene Active Problems Active Problems Problem ClassificationProblemDateDocumented DateEpisodic/ChronicAbdominal hernia (2 sources)Hernia of abdominal hdyqnk92-13-7772LliavxrwUfcjircii pain (4 sources)Abdominal pain; Translations: [Right upper quadrant pain]09-21-2021 EpisodicAnxiety disorders (4 sources)Generalized anxiety xyhcusip62-43-6738JhotaqtYibsvgw tract disease (2 sources)Dyskinesia of ijxzpofqyjw01-14-4535OtpxoexqPkvadqy ulcer of skin (12 sources)Non-pressure chronic ulcer of right ankle with fat layer exposed; Translations: [Non-pressure chronic ulcer of other part of right foot limited to breakdown of skin]Onset: 32-87-0053JkfnzdpErlzcidp mellitus without complication (2 sources)Type 2 diabetes -53-7133GehocrhOcvvxdje mellitus without complication (2 sources)High hemoglobin A1c udzow75-44-6800GhfgfurhIfbqdtnhndmauz and diverticulitis (5 sources)Diverticulitis; Translations: [Diverticulitis of intestine, part unspecified, with perforation and abscess without bleeding]Onset: 09-21-2022 28-79-0602HdkbpkvZuggnwwow hypertension (8 sources)Hypertensive ddldccpy53-10-9897QvzgbmqBcayslxh; including migraine (2 sources)Spyypvuc60-01-8031PvnmbbeoJgzgycppw arthritis and osteomyelitis (except that caused by tuberculosis or sexually transmitted disease) (2 sources)Vwxiqcaggjsny20-23-0808RivjwngLlnbmp and vomiting (2 sources)Lpmyem97-75-9400HbkesuogLzux wounds of head; neck; and trunk (2 sources)Wound lwlbphocj89-15-2713XkeqoygaNieyfudqgvrjut (2 sources)Unilateral primary osteoarthritis, unspecified knee; Translations: [Primary generalized (osteo)arthritis]Onset: 73-60-5076QlmhsbsGqnkn circulatory disease (5 sources)Other specified peripheral vascular diseases; Translations: [OTH SPEC PERIPHERAL VASC DISEASES]Onset: 54-94-5460OclslbsOddqv diseases of veins and lymphatics (1 source)Venous insufficiency (chronic) (peripheral); Translations: [VENOUS INSUFF CHRONIC PERIPHERAL]Onset: 62-62-0278VvttmvczLjnlv gastrointestinal disorders (4 sources)Irritable bowel mzttpuhm69-18-3567GhfaebqLhksc gastrointestinal disorders (2 sources)Hnpeyktruehc91-14-5383QfxmdogoCouqb inflammatory condition of skin (2 sources)Pruritus of oxnh50-84-9293XatzloegQkkpi non-traumatic joint disorders (1 source)Other specified arthritis, unspecified site; Translations: [OTHER SPECIFIED ARTHRITIS UNS SITE]Onset: 82-71-0659TwtgyhkHaxzi nutritional; endocrine; and metabolic disorders (4 sources)Morbid eyxqlvb79-21-0817QktuvkfIlgfmyu on above:Added per Dr. Davison 12/23/2021 query response.Other nutritional; endocrine; and metabolic disorders (1 source)Obesity, unspecified; Translations: [OBESITY UNSPECIFIED]Onset: 07-47-2297MovfxctVabtbina codes; unclassified (2 sources)Generalized aches and hmgij63-33-5896UxrtjphkDtjuakxi codes; unclassified (1 source)Localized edema; Translations: [LOCALIZED EDEMA]Onset: 09-21-2022 EpisodicRheumatoid arthritis and related disease (10 sources)Rheumatoid lung disease; Translations: [Rheumatoid arthritis, unspecified]Onset: 033826-67-8426FvyfczmKczh and subcutaneous tissue infections (5 sources)Pyoderma gangrenosum; Translations: [PYODERMA GANGRENOSUM]Onset: 71-85-2730SqasjmspNcdjqcsrhmif (2 sources)Long-term current use of htmzufo32-55-2263Mhtdmaeezpbz (4 sources)Patient encounter kazdzn92-46-2781 Past or Other Problems Problem ClassificationProblemDateDocumented DateEpisodic/ChronicOpen wounds of extremities (1 source)Unspecified open wound, left lower leg, initial encounterOnset: 09-01-2021 Resolved: 35-29-8384ZmpgawftUffzl aftercare (1 source)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 (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) use of antibioticsOnset: 09-01-2021 Resolved: 89-98-0882AaufrwofLvgew aftercare (1 source)Other breast buffer (current) drug therapy; Translations: [OTH [facility] CURRENT DRUG THERAPY]Onset: 02-09-4213KhfjzcyxGeczyeadhvj injury; contusion (1 source)Blister (nonthermal), right lower leg, initial encounter; Translations: [BLISTER NONTHERMAL RT LOW LEG INIT]Onset: 52-93-4183Gjwsjhtc Results Test NameValueInterpretationReference RangeFacilityAmbulatory Visit Summaryon 27-42-9269Ccericvydl Visit SummaryAmbulatory Visit Summary JARETT KEBEDE :1965 Visit Date:03/18/2025 Ambulatory Visit Instructions Your Diagnosis Encounter for subsequent annual wellness visit (AWV) in Medicare patient Morbid obesity Body weight measurement declined 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 Your Care Team Attending Physician - Ann Glasgow Primary Care Physician - Ann Glasgow This Is Your Medications List atenolol (atenolol 50 mg Tab) hydrOXYzine (hydrOXYzine pamoate 25 mg Cap) hydrochlorothiazide-triamterene (Dyazide 25 mg-37.5 mg Cap) hydrochlorothiazide-triamterene (hydrochlorothiazide-triamterene 25 mg-37.5 mg Tab) multivitamin with minerals ondansetron (ondansetron 4 mg Tab) predniSONE (predniSONE 5 mg Tab) tramadol (traMADOL 50 mg Tab) trazodone (traZODONE 100 mg Tab) Procedures Performed Appendectomy (2017), Pleural effusion (2016), hysterectomy (1999), Colon part, Ileostomy, Adrian -Kay drain, Pyoderma, Surgery. Discharge Vitals Heart Rate (Peripheral) 60 Blood Pressure 130/84 Height 157 cm Height 62 in What to do next Scheduled Follow-Up Appointments Sunday 1:20 PM EST With: Ann Glasgow Where: [address] [address]- [id number] 1:00 PM EDT With: Where: [address] [address]- Medications What How Much When Instructions Unchanged atenolol (atenolol 50 mg Tab) See instructions TAKE 1 TABLET BY MOUTH EVERY DAY Unchanged hydrochlorothiazide-triamterene (Dyazide 25 mg-37.5 mg Cap) 1 Capsules By Mouth Every day Unchanged hydrochlorothiazide-triamterene (hydrochlorothiazide-triamterene 25 mg-37.5 mg Tab) See instructions TAKE 1 TABLET BY MOUTH EVERY DAY Unchanged hydrOXYzine (hydrOXYzine pamoate 25 mg Cap) See instructions TAKE 1 CAPSULE BY MOUTH 4 TIMES A DAY NEEDED FOR ANXIETY Unchanged multivitamin with minerals Unchanged ondansetron (ondansetron 4 mg Tab) See instructions TAKE 1 TABLET BY MOUTH TWICE A DAY ASNEEDED FOR NAUSEA/ VOMITING Unchanged predniSONE (predniSONE 5 mg Tab) See instructions TAKE 2 BY MOUTH EVERY DAY IN THE MORNING Unchanged tramadol (traMADOL 50 mg Tab) TAKE 1 TO 2 TABLETS BY MOUTH TWICE DAILY NEEDED Unchanged trazodone (traZODONE 100 mg Tab) See instructions TAKE 1 TABLET BY MOUTH EVERYDAY AT BEDTIME Allergies Augmentin (Sickness) Bactrim (bloody stool) Latex Red Dye (insomnia) calcium channel blockers (tachycardia) vancomycin (itching) Problems Ongoing - Any problem that you are currently receiving treatment for. 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 Diverticulitis Hypertension IBS (irritable bowel syndrome) Osteomyelitis Patient Survey You may receive a survey via text or e-mail asking about your office visit. Please share your experience with us by completing your survey. We appreciate your feedback and thank you for choosing us for your care. Education Materials Preventive Care 65 Years and Older, Female Preventive care refers to lifestyle choices and visits with your health care provider that can promote health and wellness. Preventive care visits are also called wellness exams. What can I expect for my preventive care visit? Counseling Your health care provider may ask you questions about your: ??? Medical history, including: ? Past medical problems. ? Family medical history. ? and menstrual history. ? History of falls. ??? Current health, including: ? Memory and ability to understand (cognition). ? Emotional well-being. ? Home life and relationship well-being. ? Sexual activity and sexual health. ??? Lifestyle, including: ? Alcohol, nicotine or tobacco, and drug use. ? Access to firearms. ? Diet, exercise, and sleep habits. ? Work and work environment. ? Sunscreen use. ? Safety issues such as seatbelt and bike helmet use (more content not included)...[facility] Medicine Office/Clinic Note on [phone] Medicine Office/Clinic NoteFaunion hospital Medicine Office/Clinic Note Chief Complaint subsequent AWV Physical Exam Vitals & Measurements HR: 60(Peripheral) BP: 130/84 SpO2: 97% HT: 62 in HT: 157 cm Assessment/Plan 1. Encounter for subsequent annual wellness visit (AWV) in Medicare patient (Z00.00: Encounter for general adult medical examination without abnormal findings) Patient in office today for her Subsequent Medicare Wellness Visit. A customized and personalized print out of all the current AHRQ USPSTF???s recommendations for preventative services and all current CDC recommended immunizations, relevant risk recommendations and the following patient brochures were given. Reviewed What can I expect during my Medicare preventative care visit CDC-Falls Prevention and home safety screening reviewed. Patient denies any falls in last 12 months, voices worry about falling, patient uses cane to assist with sitting and standing. Pt voices understanding with keeping walk way area free of clutter to prevent tripping and/or falling. Patient reports some problems with ADL???s and Instrumental ADL???s. Cognitive screening completed with memory and clock face drawing. Patient did clock drawing incorrectly, but did recite 3/3 memorywords. Immunization Record reviewed with the patient. Discussed Shingrix vaccine and availability, hand out provided. 2 COVID vaccines have been administered. Immunization record is up to date. Allergies and medications reviewed and up to date. Patient denies concerns with taking medication as prescribed, reviewed OTC medications with patient with medication list up to date. Blood tests were reviewed: Discussed what tests need to be updated. Labs to be drawn in office today. Colonoscopy up to date, last was 11/15/[address] Tolbert. Repeat 10 years. Reviewed concerns with bladder control over past 6 months with no concerns. Reviewed pain symptoms with patient: 04/24 in shoulders, feet, and back. Reviewed all outside providers that patient follows. Last visit summary notes available in chart and/or have been requested. Follow up scheduled: 06/17/2025 AWV has been scheduled: 03/23/2026 Medicare provides yearly screening for alcohol and depression concerns. This is completed during our Medicare wellness visit for those who do not have a current diagnosis of depression or concerns with alcohol use. I spent a total of (12) minutes on this date of service which included preparing to see the patient, face to face patient care, completing clinical documentation, obtaining and/or reviewing separately obtained history, counseling and educating the patient with handouts. Explanations were provided with reviewing questionnaires. AUDIT risk assessment screening completed, risk score(0) with patient denying concerns with use. Completed PHQ-2 risk assessment for depression with risk score(11), negative findings. Patient has been reminded to notify the provider if there would be a change or concerns with symptoms with fear, unable to sleep, worrying too much or feeling down and/or sad with lost of interest with daily activities. Will continue to monitor with screening yearly during Medicare wellness visits. 2. Morbid obesity (E66.01: Morbid (severe) obesity due to excess calories) The standard range for ages 18 and older is >=18.5 and < 25 kg/m2. BMI monitoring is helpful with identifying a weight problem that may be related to a medical condition, or may increase the risk for medical problems. GOAL: promoting healthier lifestyle with diet changes in order to reach a healthy weight. See #3 3. Body weight measurement declined (Z53.20: Procedure and treatment not carried out because of patient's decision for unspecified reasons) Patient refuses to have weight taken. 4. 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 Baldwin as directed. 5. Type 2 diabetes mellitus (E11.9: Type 2 diabetes mellitus without complications) Patient chooses to not take any Diabetic Medications. DM stoplight handout reviewed with s/s to monitor for and report to PCP. Discussed ADA dietary recommendations with low carbs and reduce sugar intake. Patient encouraged to increase daily physical activity, adequate water intake and maintain a healthy weight. Patient encouraged to do yearly DM eye exams. PCP ordered A1C. 6. Breast cancer screening by mammogram (Z12.31: Encounter for screening mammogram for malignant neoplasm of breast) Recommended mammogram screening discussed with patient during today's Medicare Wellness visit. Patient reminded with the importance of continued Breast Self- Awareness at home. Easy to read demonstration on how to perform a self breast exam: What to look for and feel for was reviewed and provided topatient. Mammogram ordered and has been scheduled. Pt has been advised no deodorant, sprays or lotions. Mammogram ordered and faxed to [facility] per patient req (more content not included)...[facility] HospitalComment on above:Result Comment: Electronically Signed By: Ann Glasgow\.br\Date and Time Signed: 03/19/25 08:28 EDT\.br\Electronically Co-Signed By: Mercedes Reyes\.br\Date and Time Co-Signed: 03/18/25 16:35 TUIDtuY4jda [id number] (Bld) [Mass fraction] 7.2 %High<=5.9[facility] HospitalComment on above:Performed By: #### [id number] #### [facility] [address] [place], [place] [address] Medicine Office/Clinic Noteon [phone] Medicine Office/Clinic NoteFaunion hospital Medicine Office/Clinic Note HPI Staff Jarett is a 59 year old female presenting with 6 month f/u Patient is here for follow up on hypertension. How often are you checking your blood pressure? not lately What are your average readings? Yearly BMP: _ TENISHA DEDRICK- 10 Follow up for Mental Status: Medication adherence- Yes, takes medication as prescribed Medication refill needed: _ Suicidal thoughts-Not at this time Most recent DEDRICK: 11 Most recent PHQ: 6 For diabetes she is no longer taking diabetes medication Last A1C Hgb A1C %: 7.1 % High (10/01/24 15:16:00) She thinks she has a broken bone in her outer left ankle wants to see if she can get an X ray on this Onset: 5-6 days... she would like those X rays to go to [facility] if any are ordered CT scan for Hernia done on 11/04/24 nobody called her about these results History of Present Illness pt presents today for diabetes follow up. also c/o left ankle pain Review of Systems PHQ Score Initial Depression Screen Score: 0 SCORE Physical Exam Vitals & Measurements T: 36.3 ???C(Temporal Artery) HR: 60(Peripheral) RR: 18 BP: 130/84 SpO2: 97% HT: 62 in HT: 157.0 cm General: [...] (E11.9: Type 2 diabetes mellitus without complications) will check HGBA1C in office today. pt is not taking any diabetes meds currently. RTC 3 months Ordered: HgbA1c 2. Left ankle pain (M25.572: Pain in left ankle and joints of left foot) pt c/o left ankle pain. will give x ray order and faxed to [facility] Ordered: HgbA1c XR Ankle 3+ Views Left 3. Hernia of abdominal cavity (K46.9: Unspecified abdominal hernia without obstruction or gangrene) pt was supposed to be referred to [facility] once we obtained CT results. those results werefaxed to the number she provided to us, but she never heard back. She will find out from rheumatology who referral was supposed to be sent to 4. Body weight measurement declined (Z53.20: Procedure and treatment not carried out because of patient's decision for unspecified reasons) pt refused to get weight in office today. 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 Medications atenolol 50 mg Tab, See Instructions Dyazide 25 mg-37.5 mg Cap, 1 cap(s), Oral, Daily hydrochlorothiazide-triamterene 25 mg-37.5 mg Tab, See Instructions hydrOXYzine pamoate 25 mg Cap, See Instructions multivitamin with minerals ondansetron 4 mg Tab, See Instructions predniSONE 5 mg Tab, See Instructions traMADOL 50 mg Tab traZODONE 100 mg Tab, See Instructions, 4 refills Allergies Augmentin (Sickness) Bactrim (bloody stool) Latex Red Dye (insomnia) calcium channel blockers (tachycardia) vancomycin (itching) Social History Alcohol - Denies Alcohol Use, 02/19/2018 Never, 03/18/2025 Substance Abuse - Denies Substance Abuse, 02/19/2018 Never, 03/18/2025 Tobacco - Denies Tobacco Use, 02/19/2018 Former smoker, quit more than 30 days ago Tobacco Use:. Never Smokeless Tobacco Use:., 03/18/2025 Family History CVA: Father. Cancer: Mother. Diabetes mellitus type 1: Mother and Brother. Hyperlipidemia: Father and Brother. Hypertension: Mother and Father. Primary malignant neoplasm of female genital organ: Mother. Stroke: Father. Immunizations Vaccine Date Status SARS-CoV-2 (COVID-19) mRNA BNT-162b2 vax 11/04/2020 Recorded SARS-CoV-2 (COVID-19) mRNA BNT-162b2 vax 10/15/2020 RecordedNoPeoples HospitalComment on above:Result Comment: Electronically Signed By: Ann Glasgow\.br\Date and Time Signed: 03/18/25 15:30 EDTReminderson 10-06-2024 RemindersReminders From: Ann Glasgow To: B - Clinical; Sent: 10/06/2024 12:08:07 EDT Show up: 10/06/2024 12:08:00 EDT Subject: Ambulatory Reminder Due Date/Time: 10/07/2024 12:07:00 EDT urine culture positive for e coli. I sent in macrobid for her Results: Date Result Type Ind Result Name 10/01/2024 MBO POS Urine Culture Pt notifiedLima City HospitalRemindersRpastorinders From: Ann Glasgow To: B - Clinical; [...] TSH 1.04 mcIU/mL (0.34 - 5.60) pt notifiedNoPeoples HospitalRemindersReminders From: Ann Glasgow To: [facility] - Clinical; Sent: 10/06/2024 12:08:07 EDT Show up: 10/06/2024 12:08:00 EDT Subject: Ambulatory Reminder Due Date/Time: 10/07/2024 12:07:00 EDT urine culture positive for e coli. I sent in macrobid for her Results: Date Result Type Ind Result Name 10/01/2024 MBO POS Urine CultureNoPeoples HospitalC Urineon [id number] identified Cx Nom (U)Microbiology PROCEDURE: Urine Culture [R1] SOURCE: U CleanCatch BODY SITE: COLLECTED DATE/TIME: 10/01/2024 15:36 EDT RECEIVED DATE/TIME: 10/02/2024 17:43 EDT START DATE/TIME: 10/02/2024 17:43 EDT FREE TEXT SOURCE: Ann Glasgow Jodi L FINAL REPORTS Final Report [] Verified Date/Time: 10/04/2024 09:41 EDT >100,000 cfu/ml Escherichia coli SUSCEPTIBILITY RESULTS LEGEND: S=Susceptible, N/R=Not Reported, Blank=Data not available, or drug not advisable or tested, I=Intermediate, ESBL=Extended spectrum beta-lactamase, R=Resistant, TFG=Thymidine-dependent strain, TIERRA=Beta-lactamase positive, MICAH=mcg/m;(mg/L), S*=Predicted susceptible interp, R*=Predicted resistant interp EC Antibiotic MICAH Dilutn MICAH Interp Ampicillin <=8 S Ampicillin/ <=8/4 S [...] Locations R1: This test was performed at: [facility], [address] [place] [address], [phone]- , , FiljjjTzzergLima City HospitalComment on above:Performed By: #### [id number] #### [facility] [address] [place] [address]EUTih 40-03-9102Irugqsc [Mass/Vol]3.8 g/dLNormal3.3-5.0[facility] HospitalComment on above:Performed By: #### [id number] #### [facility] [address] [place] [address]Rueyfhn/Globulin (S) [Mass conc ratio]1.8Fvptca4.1-2.2FPeoples HospitalComment on above:Performed By: #### [id number] #### [facility] [address] [place], [place] [address]TLA [Catalytic activity/Vol]68 Int._Unit/VChauqw12-94VbnromCleveland Clinic Marymount HospitalComment on above:Performed By: #### [id number] #### [facility] [address] [place] [address]IOO No additional P-5'-P [Catalytic activity/Vol]13 Int._Unit/L Normal6-46[facility] HospitalComment on above:Performed By: #### [id number] #### [facility] [address] [place] [address]86[address]Zsqnv gap [Moles/Vol]16 mmol/LNormal6-16[facility] HospitalComment on above:Performed By: #### [id number] #### [facility] [address] [place] [address]HXY [Catalytic activity/Vol]23 Int._Unit/LNormal5-43[facility] HospitalComment on above:Performed By: #### [id number] #### [facility] [address] [place], [place] [address]Htldraccl [Mass/Vol]0.5 mg/dLNormal0.0-1.1FPeoples HospitalComment on above:Performed By: #### [id number] #### [facility] [address] [place], [place] [address]Okgasza [Mass/Vol]9.5 mg/dLNormal8.9-11.1FPeoples HospitalComment on above:Performed By: #### [id number] #### [facility] [address] [place], [place] [address]Ithquxxn [Moles/Vol]98 mmol/CAfe659-587GseicaCleveland Clinic Marymount HospitalComment on above:Performed By: #### [id number] #### [facility] [address] [place], [place] [address]PY5 [Moles/Vol]29 mmol/FEoflkr94-41PshejdCleveland Clinic Marymount Hospital Comment on above:Performed By: #### [id number] #### [facility] [address] [place], [place] [address]Pvdruyxhpk [Mass/Vol]0.7 mg/dLNormal0.5-1.3FPeoples HospitalComment on above:Performed By: #### [id number] #### [facility] [address] [place] [address]Joipdcuj (S) [Mass/Vol]3.5 g/dLNormal1.4-4.0[facility] HospitalComment on above:Performed By: #### [id number] #### [facility] [address] [place], [place] [address]Rsvjfyk [Mass/Vol]132 mg/mYFrkodi78-220FvukemCleveland Clinic Marymount HospitalComment on above:Performed By: #### [id number] #### [facility] [address] [place], [place] [address]Pnhtaibtz [Moles/Vol]4.6 mmol/LNormal3.5-5.3FPeoples HospitalComment on above:Performed By: #### [id number] #### [facility] [address] [place], [place] [address]Mwcswnr [Mass/Vol]7.3 g/dLNormal6.0-7.8[facility] HospitalComment on above:Performed By: #### [id number] #### [facility] [address] [place], [place] [address]Glajfg [Moles/Vol]138 mmol/NKhtjpf701-205GapckxCleveland Clinic Marymount HospitalComment on above:Performed By: #### [id number] #### [facility] [address] [place], [place] [address]Sytk nitrogen [Mass/Vol]20 mg/dLNormal5-21[facility] HospitalComment on above:Performed By: #### [id number] #### [facility] [address] [place], [place] [address]Jjno nitrogen/Creatinine [Mass ratio]29 No QvyseMnpf38-39TresnrCleveland Clinic Marymount HospitalComment on above:Performed By: #### [id number] #### [facility] [address] [place], [place] [address]QcqR3orc 13-41-2076YnK2a (Bld) [Mass fraction]7.1 %High<=5.9 [facility] HospitalComment on above:Performed By: #### [id number] #### [facility] [address] [place], [place] [address]Mfcfu Panelon 01-77-9433Czybhitqljm [Mass/Vol]209 mg/dLHigh 120-200[facility] HospitalComment on above:Performed By: #### [id number] #### [facility] [address] [place], [place] [address]Sfixhjdqbwt in HDL [Mass/Vol]59 mg/dLInvalid Interpretation CodeCleveland Clinic Marymount HospitalComment on above:Result Comment: '>= 60 LOW RISK' '<= 40 HIGH RISK'Performed By: #### [id number] #### [facility] [address] [place], [place] [address]Dvisbbuwpva in LDL [Mass/Vol]130 mg/dLHigh<=129[facility] HospitalComment on above:Performed By: #### [id number] #### [facility] [address] [place], [place] [address]Mvetclwzcwl in VLDL [Mass/Vol]32 mg/dLNormal7-40[facility] HospitalComment on above:Performed By: #### [id number] #### [facility] [address] [place], [place] [address]Qeffpyygespt [Mass/Vol]159 mg/dLHigh<=149[facility] HospitalComment on above:Performed By: #### [id number] #### [facility] [address] [place], [place] [address]FPKyg 58-33-8570RTM Qn1.04 m[IU]/LNormal0.34-5.60[facility] HospitalComment on above:Performed By: #### [id number] #### [facility] [address] [place], [place] [address]yZQVno 23-39-6489vYWP54 mL/min/1.73 s7Mppxmi>=59[facility] HospitalComment on above:Performed By: #### [id number] #### [facility] [address] [place], [place] [address]Eemlupcqvz Visit Summaryon 12-16-5253Rbxrebwtoa Visit Summary Ambulatory Visit Summary JARETT KEBEDE :1965 Visit Date:10/01/2024 Ambulatory Visit Instructions Your Diagnosis Type 2 diabetes mellitus Hypertension Generalized anxiety disorder Screening for hypercholesterolemia Abdominal hernia Non-smoker Your Care Team Attending Physician - Ann Glasgow Primary Care Physician - Ann Glasgow This Is Your Medications List atenolol (atenolol 50 mg Tab) hydrOXYzine (hydrOXYzine pamoate 25 mg Cap) hydrochlorothiazide-triamterene (hydrochlorothiazide-triamterene 25 mg-37.5 mg Tab) multivitamin with minerals ondansetron (ondansetron 4 mg Tab) predniSONE (predniSONE 5 mg Tab) sitagliptin (Januvia 50 mg Tab) tramadol (traMADOL 50 mg Tab) trazodone (traZODONE 100 mg Tab) Procedures Performed Appendectomy (2017), Pleural effusion (2016), hysterectomy (1999), Colon part, Ileostomy, Adrian -Kay drain, Pyoderma, Surgery. Discharge Vitals Heart Rate (Peripheral) 90 Respiratory Rate 18 Blood Pressure 136/88 Height 157.0 cm Height 62 in What to do next Scheduled Follow-Up Appointments 2024 1:40 PM EDT Where: [place] [id number]- Medications What How Much When Instructions Unchanged atenolol (atenolol 50 mg Tab) 50 Milligram By Mouth Every day Unchanged hydrochlorothiazide-triamterene (hydrochlorothiazide-triamterene 25 mg-37.5 mg Tab) 1 Tablets By Mouth Every day Unchanged hydrOXYzine (hydrOXYzine pamoate 25 mg Cap) See instructions TAKE 1 CAPSULE BY MOUTH 4 TIMES A DAY NEEDED FOR ANXIETY Unchanged multivitamin with minerals Unchanged ondansetron (ondansetron 4 mg Tab) See instructions TAKE 1 TABLET BY MOUTH TWICE A DAY ASNEEDED FOR NAUSEA/ VOMITING Unchanged predniSONE (predniSONE 5 [...] hemoglobin A1c measurement 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 NormalCleveland Clinic Marymount HospitalCHEMISTRYOrdered By: SYSTEM SYSTEM on 85-11-5469Ziygjpv [Mass/Vol]3.8 g/dLNormal3.3 - 5.0 gm/dLRemisol Chem Albumin/Globulin [Mass ratio]1.1 {ratio}Normal1.1 - 2.2Remisol ChemALP [Catalytic activity/Vol]68 [iU]/lMhahei76 - 98 Int._Unit/LRemisol ChemALT No additional P-5'-P [Catalytic activity/Vol]13 [iU]/dNormal6 - 46 Int._Unit/L Remisol ChemAnion gap [Moles/Vol]16 mmol/LNormal6 - 16 mEq/LRemisol ChemAST [Catalytic activity/Vol]23 [iU]/dNormal5 - 43 Int._Unit/LRemisol ChemBilirubin [Mass/Vol]0.5 mg/dLNormal0.0 - 1.1 mg/dLRemisol ChemCalcium [Mass/Vol]9.5 mg/dL Normal8.9 - 11.1 mg/dLRemisol ChemChloride [Moles/Vol]98 mmol/AWno757 - 111 mmol/LRemisol ChemCholesterol [Mass/Vol]209 mg/pZLnhl233 - 200 mg/dLRemisol Chem Cholesterol in HDL [Mass/Vol]59 mg/dLInvalid Interpretation CodeRemisol Chem Comment on above:Result Comment: '>= 60 LOW RISK' '<= 40 HIGH RISK'Cholesterol in LDL [Mass/Vol]130 mg/dLHigh<=129mg/dLRemisol ChemCholesterol in VLDL [Mass/Vol]32 mg/dLNormal7 - 40 mg/dLRemisol ChemCO2 [Moles/Vol]29 mmol/FRjdvgn22 - 31 mmol/LRemisol ChemCreatinine [Mass/Vol]0.7 mg/dLNormal0.5 - 1.3 mg/dLRemisol YsakgNGL26 mL/min/1.73 n9Edewik>=59mL/min/1.73 w1Rmufunh ChemGlobulin (S) [Mass/Vol]3.5 g/dLNormal1.4 - 4.0 gm/dLRemisol Chem Glucose [Mass/Vol]132 mg/sOIctici19 - 199 mg/dLRemisol ChemPotassium [Moles/Vol] 4.6 mmol/LNormal3.5 - 5.3 mmol/LRemisol ChemProtein [Mass/Vol]7.3 g/dLNormal6.0 - 7.8 gm/dLRemisol ChemSodium [Moles/Vol]138 mmol/NIsjqjg250 - 145 mmol/LRemisol ChemTriglyceride [Mass/Vol]159 mg/dLHigh<=149mg/dLRemisol ChemTSH Qn1.04 m[IU]/LNormal0.34 - 5.60 mcIU/mLRemisol ChemUrea nitrogen [Mass/Vol]20 mg/dL Normal5 - 21 mg/dLRemisol ChemUrea nitrogen/Creatinine [Mass ratio]29 mg/mgHigh 10 - 20Remisol ChemCHEMISTRYOrdered By: Magy Thurston on 58-61-5960RvZ9k (Bld) [Mass fraction]7.1 %High<=5.9%[facility] ChemAutoSSFaunion hospital Medicine Office/Clinic Note on [id number] Medicine Office/Clinic NoteLyman School For Boys Medicine Office/Clinic Note HPI Staff Jarett is [...] Ordered: Comprehensive Metabolic Panel Drug Screen POC 62541 HgbA1c Lab Specimen Collect 22811 Lipid Panel Thyroid Stimulating Hormone 2. Hypertension (I10: Essential (primary) hypertension) BP at goal. does not need refills at this time Ordered: Comprehensive Metabolic Panel Drug Screen POC 08365 HgbA1c Lab Specimen Collect 93547 Lipid Panel Thyroid Stimulating Hormone 3. Generalized anxiety disorder (F41.1: Generalized anxiety disorder) does not need refills at this time Ordered: Comprehensive Metabolic Panel HgbA1c Lab Specimen Collect 40886 Lipid Panel Thyroid Stimulating Hormone 4. Screening for hypercholesterolemia (Z13.220: Encounter for screening for lipoid disorders) lipid panel drawn in office today Ordered: Comprehensive Metabolic Panel Drug Screen POC 29030 HgbA1c Lab Specimen Collect 90033 Lipid Panel Thyroid Stimulating Hormone 5. Abdominal hernia (K46.9: Unspecified abdominal hernia without obstruction or gangrene) pt has had abdominal hernia for about 7 years. 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 pt desires to go to [facility] for scan. 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 Medications atenolol 50 mg [...] Alcohol - Denies Al (more content not included)...[facility] City HospitalComment on above:Result Comment: Electronically Signed By: Ann Glasgow\.br\Date and Time Signed: 10/01/24 15:29 EDTComplete Blood Count Auto Diffon [id number] (Bld) [#/Vol]0.1 10*3/uLNormal0.0-0.2The [facility], [facility] Physician GroupComment on above:Performed By: #### CBC, ESR, CMP #### [facility] [address] [place] [address] USABasophils/100 WBC (Bld)0.6 %Normal.The [facility], [facility] Physician GroupComment on above:Performed By: #### CBC, ESR, CMP #### [facility] [address] [place] [address] USAEosinophils (Bld) [#/Vol]0.1 10*3/uLNormal0.0-0.45The [facility], [facility] Physician GroupComment on above:Performed By: #### CBC, ESR, CMP #### [facility] [address] [place] [address] USAEosinophils/100 WBC (Bld)0.9 %Normal.The [facility], [facility] Physician GroupComment on above:Performed By: #### CBC, ESR, CMP #### [facility] [address] [place] [address] USAErythrocyte distribution width (RBC) [Ratio]14.6 %Normal 11.9-15.3The [facility], [facility] Physician GroupComment on above:Performed By: #### CBC, ESR, CMP #### [place] [address] USAHematocrit (Bld) [Volume fraction]47.8 %High34.0-46.4The [facility], [facility] Physician GroupComment on above:Performed By: #### CBC, ESR, CMP #### [place] [address] USAHemoglobin (Bld) [Mass/Vol]15.8 g/qVVuyl05.8-15.4The [facility], [facility] Physician GroupComment on above:Performed By: #### CBC, ESR, CMP #### [place] [address] USALymphocytes (Bld) [#/Vol]1.6 10*3/uLNormal1.00-4.8The [facility], [facility] Physician GroupComment on above:Performed By: #### CBC, ESR, CMP #### [place] [address] USALymphocytes/100 WBC (Bld)17.0 %Normal.The [facility], [facility] Physician GroupComment on above:Performed By: #### CBC, ESR, CMP #### [place] [address] USAMCH (RBC) [Entitic mass]29.2 dtYhmjwv59.7-34.3The [facility], [facility] Physician GroupComment on above:Performed By: #### CBC, ESR, CMP #### [place] [address] USAMCV (RBC) [Entitic vol]88.0 zQBfeesy48-239Aek [facility], [facility] Physician GroupComment on above:Performed By: #### CBC, ESR, CMP #### [place] [address] USAMean Corpuscular HGB Conc33.1 g/jMPlgjbo83.0-35.0The [facility], [facility] Physician GroupComment on above:Performed By: #### CBC, ESR, CMP #### [facility] [address] [place] [address] USAMonocytes (Bld) [#/Vol]0.4 10*3/uLNormal0.0-0.8The [facility], [facility] Physician GroupComment on above:Performed By: #### CBC, ESR, CMP #### [place] [address] USAMonocytes/100 WBC (Bld)4.6 %Normal.The [facility], [facility] Physician GroupComment on above:Performed By: #### CBC, ESR, CMP #### [place] [address] USANeutrophils (Bld) [#/Vol]7.4 10*3/uLNormal1.8-7.7The [facility], [facility] Physician GroupComment on above:Performed By: #### CBC, ESR, CMP #### [place] [address] USANeutrophils/100 WBC (Bld)76.9 %Normal.The [facility], [facility] Physician GroupComment on above:Performed By: #### CBC, ESR, CMP #### [place] [address] USANRBC%0.1 /100{WBC}Normal0-0.5The [facility], [facility] Comment on above:Performed By: #### CBC, ESR, CMP #### [place] [address] USAPlatelet mean volume (Bld) [Entitic vol]9.0 fLNormal 6.3-10.7The [facility], [facility] Physician GroupComment on above:Performed By: #### CBC, ESR, CMP #### [facility] [address] [place] [address] USAPlatelets (Bld) [#/Vol]277 10*3/tUZfpeio836-764Gwg [facility], [facility] Physician GroupComment on above:Performed By: #### CBC, ESR, CMP #### [place] [address] USARBC (Bld) [#/Vol]5.44 10*6/uLHigh3.60-5.00The [facility], [facility] Physician GroupComment on above:Performed By: #### CBC, ESR, CMP #### [place] [address] USAWBC (Bld) [#/Vol]9.7 10*3/uLNormal3.8-11.6The [facility], [facility] Physician GroupComment on above:Performed By: #### CBC, ESR, CMP #### [place] [address] USAComprehensive Metabolic Panelon [id number] [Mass/Vol]3.7 g/dLNormal3.5-5.7The [facility], [facility] Physician GroupComment on above: Performed By: #### CBC, ESR, CMP #### [place] [address] USAAlbumin/Globulin [Mass ratio]1.1 {ratio}NormalThe [facility], [facility] Physician GroupComment on above:Performed By: #### CBC, ESR, CMP #### [place] [address] USAALP [Catalytic activity/Vol]66 U/JFeyghe49-552Iom [facility], [facility] Physician GroupComment on above:Result Comment: PERFORMED BY: [place] [address] PATHOLOGIST DIRECTOR OF FOOD AND NUTRITION ALONZO BEAULIEU M.D.Performed By: #### CBC, ESR, CMP #### [place] [address] USAALT [Catalytic activity/Vol]12 U/LNormal7-52The [facility] Physician Ummc GrenadaComment on above:Performed By: #### CBC, ESR, CMP #### [place] [address] USAAnion gap [Moles/Vol]12.9 mmol/LNormal6.0-15.0The [facility], [facility] Physician GroupComment on above:Performed By: #### CBC, ESR, CMP #### [place] [address] USAAST [Catalytic activity/Vol]14 U/CXaidyj56-86Axr [facility], [facility] Physician GroupComment on above:Performed By: #### CBC, ESR, CMP #### [place] [address] USABilirubin [Mass/Vol]0.4 mg/dLNormal0.3-1.0The [facility], [facility] Physician GroupComment on above:Performed By: #### CBC, ESR, CMP #### [place] [address] USACalcium [Mass/Vol]9.7 mg/dLNormal8.6-10.3The [facility], [facility] Physician GroupComment on above:Performed By: #### CBC, ESR, CMP #### [place] [address] USAChloride [Moles/Vol]98 mmol/LWcbftf38-183Zsa [facility], [facility] Physician GroupComment on above:Performed By: #### CBC, ESR, CMP #### [place] [address] USACO2 [Moles/Vol]33.8 mmol/LHigh21.0-31.0The [facility], [facility] Physician GroupComment on above:Performed By: #### CBC, ESR, CMP #### [place] [address] USACreatinine [Mass/Vol]0.84 mg/dLNormal0.60-1.20The [facility], [facility] Physician GroupComment on above:Performed By: #### CBC, ESR, CMP #### [place] [address] USAGFR/1.73 sq M.predicted MDRD (S/P/Bld) [Vol rate/Area] mL/min/{1.73_m2}NormalThe [facility], [facility] Physician GroupComment on above:Performed By: #### CBC, ESR, CMP #### [place] [address] USAGlobulin (S) [Mass/Vol]3.3 g/dLNormalThe [facility], [facility] Physician GroupComment on above:Performed By: #### CBC, ESR, CMP #### [place] [address] USAGlucose [Mass/Vol]151 mg/lSQkht48-032Zez [facility], [facility] Physician GroupComment on above:Result Comment: Random Glucose Reference Range is dependent on time and content of last meal. Glucose of more than 200 mg/dL in a nonstressed, ambulatory subject supports the diagnosis of Diabetes Mellitus. ADA recommended reference rangePerformed By: #### CBC, ESR, CMP #### [place] [address] USAPotassium [Moles/Vol]4.7 mmol/LNormal3.5-5.1The [facility], [facility] Physician GroupComment on above:Performed By: #### CBC, ESR, CMP #### [place] [address] USAProtein [Mass/Vol]7.0 g/dLNormal6.4-8.9The [facility], [facility] Physician GroupComment on above:Performed By: #### CBC, ESR, CMP #### [place] [address] USASodium [Moles/Vol]140 mmol/VGuycwf712-671Iyp [facility], [facility] Physician GroupComment on above:Performed By: #### CBC, ESR, CMP #### [place] [address] USAUrea nitrogen [Mass/Vol]19 mg/dLNormal7-25The [facility], [facility] Physician GroupComment on above:Performed By: #### CBC, ESR, CMP #### [place] [address] USAErythrocyte Sedimentation Rateon 08-67-2044UGH (Bld) [Velocity]44 mm/hHigh0-29The [facility], [facility] Physician GroupComment on above:Result Comment: PERFORMED BY: [place] [address] PATHOLOGIST DIRECTOR OF FOOD AND NUTRITION ALONZO BEAULIEU M.D.Performed By: #### CBC, ESR, CMP #### [place] [address] USAAlanine aminotransferase [Enzymatic activity/volume] in Serum or PlasmaOrdered By: Ann Pride on 50-95-1250NZY [Catalytic activity/Vol]14 U/LNormal7-52[facility] HospitalComment on above: Performed By: #### ESR, CBC, CMP #### [facility] [address] [place] [address] USAAlbumin [Mass/volume] in Serum or Plasma by Bromocresol green (BCG) dye binding methoOrdered By: Ann Pride on 69-36-1334Dinykno BCG dye [Mass/Vol]3.6 g/dL3.5-5.7FRegency Hospital CompanyAlkaline phosphatase [Enzymatic activity/volume] in Serum or PlasmaOrdered By: Ann Pride on 77-96-1780GRH [Catalytic activity/Vol]66 U/QSveihu18-581PixlsngmmKettering Memorial HospitalComment on above:Result Comment: PERFORMED BY: [place] [address] PATHOLOGIST DIRECTOR OF FOOD AND NUTRITION CRYSTAL SPRING M.D.Performed By: #### ESR, CBC, CMP #### [place] [address] USAAspartate aminotransferase [Enzymatic activity/volume] in Serum or PlasmaOrdered By: Ann Pride on 12-77-7994PKR [Catalytic activity/Vol]13 U/JKpftey94-27OykcgzgokKettering Memorial HospitalComment on above: Performed By: #### ESR, CBC, CMP #### [facility] [address] [place] [address] USAAutomated basophil %Ordered By: Ann Pride on 21-39-3581Txqatmqcx/100 WBC (Bld)0.5 %Normal.[facility] Comment on above:Performed By: #### ESR, CBC, CMP #### [facility] [address] [place] [address] USAAutomated basophil countOrdered By: Ann Pride on 29-91-2101Mpgpswfoh (Bld) [#/Vol]0.0 10*3/uLNormal0.0-0.2FRegency Hospital CompanyComment on above:Performed By: #### ESR, CBC, CMP #### [facility] [address] [place] [address] USAAutomated blood monocyte countOrdered By: Ann Pride on 60-11-4153Pyuexaftc (Bld) [#/Vol]0.7 10*3/uLNormal0.0-0.8[facility] HospitalComment on above:Performed By: #### ESR, CBC, CMP #### [facility] [address] [place] [address] USAAutomated eosinophil %Ordered By: Ann Pride on 08-69-8047Vmebtnjvhuy/100 WBC (Bld)0.9 %Normal.[facility] Comment on above:Performed By: #### ESR, CBC, CMP #### [place] [address] USAAutomated eosinophil countOrdered By: Ann Pride on 93-19-0180Rvqhngahwrl (Bld) [#/Vol]0.1 10*3/uLNormal0.0-0.45[facility] HospitalComment on above:Performed By: #### ESR, CBC, CMP #### [place] [address] USAAutomated monocyte %Ordered By: Ann Pride on 70-68-7925Axrvoyqkz/100 WBC (Bld)7.5 %Normal.[facility] Comment on above:Performed By: #### ESR, CBC, CMP #### [place] [address] USAAutomated neutrophil %Ordered By: Ann Pride on 78-04-2584Qxssaaogqnf/100 WBC (Bld)74.5 %Normal.[facility] HospitalComment on above:Performed By: #### ESR, CBC, CMP #### [facility] [address] [place] [address] USABilirubin.total [Mass/volume] in Serum or PlasmaOrdered By: Ann Pride on 55-72-5401Vbwkdtdbq [Mass/Vol]0.4 mg/dLNormal0.3-1.0 [facility] HospitalComment on above:Performed By: #### ESR, CBC, CMP #### [facility] [address] [place] [address] USACalcium [Mass/volume] in Serum or PlasmaOrdered By: Ann Pride on 70-94-4053Gwqdqwa [Mass/Vol]9.2 mg/dLNormal8.6-10.3FRegency Hospital CompanyComment on above:Performed By: #### ESR, CBC, CMP #### [facility] [address] [place] [address] USACarbon dioxide, total [Moles/volume] in Serum or Plasma Ordered By: Ann Pride on 15-23-8118OP8 [Moles/Vol]33.2 mmol/LHigh21.0-31.0 [facility] HospitalComment on above:Performed By: #### ESR, CBC, CMP #### [facility] [address] [place] [address] USAChloride [Moles/volume] in Serum or PlasmaOrdered By: Ann Pride on 03-19-7431Qxgbtgee [Moles/Vol]100 mmol/HVeoprf14-434IwxgdfmkhKettering Memorial HospitalComment on above:Performed By: #### ESR, CBC, CMP #### [facility] [address] [place] [address] USAComplete Blood Count Auto Diffon 92-11-3048Riof Corpuscular HGB Conc32.9 g/mRXawwbd17.0-35.0The [facility] Physician GroupComment on above:Performed By: #### ESR, CBC, CMP #### [facility] [address] [place] [address] USANRBC%0.4 /100{WBC}Normal0-0.5The [facility] Comment on above:Performed By: #### ESR, CBC, CMP #### [facility] [address] [place] [address] USAComprehensive Metabolic Panelon 42-39-7652Sxahgrs [Mass/Vol]3.6 g/dLNormal3.5-5.7The [facility], [facility] Physician GroupComment on above: Performed By: #### ESR, CBC, CMP #### [place] [address] USAGFR/1.73 sq M.predicted MDRD (S/P/Bld) [Vol rate/Area] mL/min/{1.73_m2}NormalThe [facility], [facility] Physician GroupComment on above:Performed By: #### ESR, CBC, CMP #### [place] [address] USACreatinine [Mass/volume] in Serum or PlasmaOrdered By: Ann Pride on 23-94-2789Uooohbxvbb [Mass/Vol]0.68 mg/dLNormal0.60-1.20 [facility] HospitalComment on above:Performed By: #### ESR, CBC, CMP #### [place] [address] USAErythrocyte Sedimentation Rateon 04-22-9292AZF (Bld) [Velocity]35 mm/hHigh0-29The [facility] Physician [facility]mmc GrenadaComment on above:Result Comment: PERFORMED BY: [place] [address] PATHOLOGIST DIRECTOR OF FOOD AND NUTRITION CRYSTAL SPRING M.D.Performed By: #### ESR, CBC, CMP #### [place] [address] USAErythrocyte distribution width [Ratio] by Automated count Ordered By: Ann Pride on 36-55-9249Xvovlvsulvq distribution width (RBC) [Ratio]16.3 %High11.9-15.3FRegency Hospital CompanyComment on above: Performed By: #### ESR, CBC, CMP #### [place] [address] USAErythrocyte sedimentation rate by Photometric method Ordered By: Ann Pride on 62-69-0950NSI Photometric method (Bld) [Velocity] 35 mm/hrHigh0-29K[facility]tering Memorial HospitalErythrocytes [#/volume] in Blood by Automated countOrdered By: Ann Pride on 92-38-6662YBU (Bld) [#/Vol]5.04 10*6/uLHigh3.60-5.00[facility] HospitalComment on above:Performed By: #### ESR, CBC, CMP #### [facility] [address] [place] [address] USAGlucose [Mass/volume] in Serum or PlasmaOrdered By: Ann Pride on 46-73-8978Lccqhsw [Mass/Vol]138 mg/iPLotl08-620GieeglvbaKettering Memorial HospitalComment on above:ADA recommended reference rangeRandom Glucose Reference Range is dependent on time and content of last meal. Glucose of more than 200 mg/dL in a nonstressed, ambulatory subject supports the diagnosisof Diabetes Mellitus.Result Comment: Random Glucose Reference Range is dependent on time and content of last meal. Glucose of more than 200 mg/dL in a nonstressed, ambulatory subject supports the diagnosis of Diabetes Mellitus. ADA recommended reference rangePerformed By: #### ESR, CBC, CMP #### [facility] [address] [place] [address] USAHematocrit [Volume Fraction] of Blood by Automated count Ordered By: Ann Pride on 72-29-3402Oikfzvrkyb (Bld) [Volume fraction]44.1 % Yqzxaf09.0-46.4FRegency Hospital CompanyComment on above:Performed By: #### ESR, CBC, CMP #### [facility] [address] [place] [address] USAHemoglobin [Mass/volume] in BloodOrdered By: Ann Pride on 33-44-5062Hkbzaqkxlc (Bld) [Mass/Vol]14.5 g/cJNppods14.8-15.4 [facility] HospitalComment on above:Performed By: #### ESR, CBC, CMP #### [facility] [address] [place] [address] USALeukocytes [#/volume] corrected for nucleated erythrocytes in Blood by Automated counOrdered By: Ann Pride on 00-31-0095TMG corrected for nucl RBC Auto (Bld) [#/Vol]9.2 10*3/uL3.8-11.6FRegency Hospital CompanyLeukocytes [#/volume] in Blood by Automated countOrdered By: Ann Pride on 10-40-0858NMG (Bld) [#/Vol]9.2 10*3/uLNormal3.8-11.6FRegency Hospital CompanyComment on above:Performed By: #### ESR, CBC, CMP #### [facility] [address] [place] [address] USALymphocytes [#/volume] in Blood by Automated countOrdered By: Ann Pride on 90-66-3981Wvcvatsslst (Bld) [#/Vol]1.5 10*3/uLNormal 1.00-4.8[facility] HospitalComment on above:Performed By: #### ESR, CBC, CMP #### [facility] [address] [place] [address] USALymphocytes/100 leukocytes in Blood by Automated count Ordered By: Ann Pride on 08-00-2561Btorafdoexd/100 WBC (Bld)16.6 %Normal. [facility] HospitalComment on above:Performed By: #### ESR, CBC, CMP #### [address] [Entitic mass] by Automated countOrdered By: Ann Pride on 63-44-3000FWS (RBC) [Entitic mass]28.8 ohJkspht49.7-34.3FRegency Hospital CompanyComment on above:Performed By: #### ESR, CBC, CMP #### [facility] [address] [place] [id number] [facility] CL[facility]OREHC Auto (RBC) [Mass/Vol]Ordered By: Ann Pride on 76-01-6833ARLE (RBC) [Mass/Vol]32.9 g/dL32.0-35.0K[facility] Memorial HospitalMCV [Entitic volume] by Automated countOrdered By: Ann Pride on 34-70-6020IXB (RBC) [Entitic vol]87.5 wTGjmycb13-010AeupvncfdKettering Memorial HospitalComment on above:Performed By: #### ESR, CBC, CMP #### [facility] [address] [place] [address] USANeutrophils [#/volume] in Blood by Automated countOrdered By: Ann Pride on 04-15-2208Xlwxoohkueh (Bld) [#/Vol]6.9 10*3/uLNormal 1.8-7.7FRegency Hospital CompanyComment on above:Performed By: #### ESR, CBC, CMP #### [facility] [address] [place] [address] USANo Panel InformationOrdered By: Ann Pride on 13-16-2270Vwqspxnpj GFR (CKD-EPI)> 60.0 mL/MinKettering Memorial Hospital Pharmacy Creatinine Clearance (ChemN/AFRegency Hospital CompanyNucleated erythrocytes [Presence] in Blood by Automated countOrdered By: Ann Pride on 09-33-8871Inrkzqsov RBC Auto Ql (Bld)0.4 /100{WBC}0-0.5FRegency Hospital CompanyPlatelet mean volume [Entitic volume] in Blood by Automated count Ordered By: Ann Pride on 76-24-7480Vhbnngnq mean volume (Bld) [Entitic vol] 8.5 fLNormal6.3-10.7FRegency Hospital CompanyComment on above:Performed By: #### ESR, CBC, CMP #### [facility] [address] [place] [id number] USAPlatelets [#/volume] in Blood by Automated countOrdered By: Ann Pride on 40-55-6834Xruqonzaq (Bld) [#/Vol]272 10*3/yVDwvuzp800-826 [facility] HospitalComment on above:Performed By: #### ESR, CBC, CMP #### [facility] [address] [place] [address] USAPotassium [Moles/volume] in Serum or PlasmaOrdered By: Ann Pride on 67-98-8306Ecasvdhbf [Moles/Vol]4.6 mmol/LNormal3.5-5.1 [facility] HospitalComment on above:Performed By: #### ESR, CBC, CMP #### [facility] [address] [place] [address] USAProtein [Mass/volume] in Serum or PlasmaOrdered By: Ann Pride on 57-99-8943Glvxrvn [Mass/Vol]6.5 g/dLNormal6.4-8.9[facility] HospitalComment on above:Performed By: #### ESR, CBC, CMP #### [place] [address] USASerum globulin measurement by calculation (mass/volume) Ordered By: Ann Pride on 78-91-6585Jrebssvl (S) [Mass/Vol]2.9 g/dLNormal [facility] HospitalComment on above:Performed By: #### ESR, CBC, CMP #### [place] [address] USASerum or plasma albumin/globulin mass ratioOrdered By: Ann Pride on 85-47-4704Brtaikb/Globulin [Mass ratio]1.2 {ratio}Normal [facility] HospitalComment on above:Performed By: #### ESR, CBC, CMP #### [facility] [address] [place] [address] USASerum or plasma anion gap determinationOrdered By: Ann Pride on 59-17-0397Vsgcs gap [Moles/Vol]11.4 mmol/LNormal6.0-15.0[facility] HospitalComment on above:Performed By: #### ESR, CBC, CMP #### [facility] [address] [place], [place] [id number] USASodium [Moles/volume] in Serum or PlasmaOrdered By: Ann Pride on 69-41-5109Uxphup [Moles/Vol]140 mmol/XSfimwi387-550JhgdvxrhwKettering Memorial HospitalComment on above:Performed By: #### ESR, CBC, CMP #### [facility] [address] [place] [address] USAUrea nitrogen [Mass/volume] in Serum or PlasmaOrdered By: Ann Pride on 70-31-7968Dybq nitrogen [Mass/Vol]17 mg/dLNormal7-25[facility] HospitalComment on above:Performed By: #### ESR, CBC, CMP #### [facility] [address] [place] [address] USAAmbulatory Visit Summaryon 05-65-5093Jexizhxuja Visit SummaryAmbulatory Visit Summary JARETT KEBEDE :1965 Visit Date:05/15/2023 Ambulatory Visit Instructions Your Care Team Primary Care Physician - Ann Glasgow This Is Your Medications List atenolol (atenolol 50 mg Tab) hydrOXYzine (hydrOXYzine pamoate 25 mg Cap) hydrochlorothiazide-triamterene (hydrochlorothiazide-triamterene 25 mg-37.5 mg Tab) multivitamin with minerals ondansetron (Zofran) predniSONE (predniSONE 5 mg Tab) predniSONE (predniSONE 5 mg Tab) sitagliptin (Januvia 50 mg Tab) trazodone (traZODONE 100 mg Tab) Procedures Performed Appendectomy (2017), Pleural effusion (2016), hysterectomy (1999), Colon part, Ileostomy, Adrian -Kay drain, Pyoderma, Surgery. What to do next Scheduled Follow-Up Appointments 2023 1:00 PM EDT With: Where: [facility] [address] [address]- \.br\ Medications\.br\ What How Much When Instructions\.br\ New atenolol (atenolol 50 mg Tab) 50 Milligram By Mouth Every day Refills: [id number]\.br\ New hydrOXYzine (hydrOXYzine pamoate 25 mg Cap) 1 Capsules By Mouth 4 times a day as needed for for anxiety Refills: 2 Pickup at [id number]\.br\ Changed ondansetron (Zofran) 4 Milligram By Mouth 2 times a day as needed for as needed for nausea/vomiting\.br\ Changed predniSONE (predniSONE 5 mg Tab) See instructions TAKE 2 BY MOUTH EVERY DAY IN THE MORNING \.br\ Changed predniSONE (predniSONE 5 mg Tab) 3 Tablets By Mouth Every day\.br\ Changed trazodone (traZODONE 100 mg Tab) 1 Tablets By Mouth Once a day (at bedtime)\.br\ Unchanged hydrochlorothiazide-triamterene (hydrochlorothiazide-triamterene 25 mg-37.5 mg Tab) 1 Tablets By Mouth Every day\.br\ Unchangedmultivitamin with minerals\.br\ Unchanged sitagliptin (Januvia 50 mg Tab) 1 Tablets By Mouth Every day\.br\ Pharmacy Information\.br\ [id number]: [address], [place] [id number] [phone]\.br\ Allergies\.br\ Augmentin (Sickness)\.br\ Bactrim (bloody stool)\.br\ Latex\.br\ Red Dye (insomnia)\.br\ calcium channel blockers (tachycardia)\.br\ vancomycin (itching)\.br\ Problems\.br\ Ongoing - Any problem that you are currently receiving treatment for.\.br\ Breast cancer screeningby mammogram\.br\ Dyskinesia of gallbladder\.br\ Elevated hemoglobin A1c measurement\.br\ Generalized anxiety disorder\.br\ Hypertension\.br\ penitentiary current use of systemic steroids\.br\ Morbid obesity\.br\ Osteomyelitis\.br\ Pruritic condition\.br\ 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 Please share your experience with us by completing your survey. We appreciate your feedback and thank you for ch oosing us for your care.\.br\ \.br\[facility] Health Recordson [id number] Records [id number]#1.00[facility] [id number] HealthCase Information Case Priority: None Programs: -- Referral Source: Store Director Referral Reason: Care coordination Case Type: Transition Care Management Risk Score: -- Case Status: Enrolled (November 12, 2023) Date Assigned: November 12, 2023 Assigned By: Harrison Diaz Date Enrolled: November 12, 2023 Assigned Primary Personnel: Harrison Diaz Assigned Secondary Personnel: -- Case Physician: Ann Glasgow Problems Ongoing Breast cancer screening by mammogram Dyskinesia of gallbladder Elevated hemoglobin A1c measurement Generalized anxiety disorder Hypertension penitentiary current use of systemic steroids Morbid obesity Osteomyelitis Pruritic condition 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 Home Medications atenolol 50 mg Tab, 50 mg, Oral, Daily, 1 refills hydrochlorothiazide-triamterene 25 mg-37.5 mg Tab, 1 [...] states she is doing good. Reports Dr. Jones removed her stitches at yesterdays appointment, 12/04/23. She will return to ortho in about 3 weeks for f/u. Patient reports her right foot is a little swollen and states Dr. Jones said this was to be expected. CN [...] (min): 4 Outcome: Case discussion Contact Type: patient day coordinator Contact Name: Harrison Diaz Notes: TCM#4- see tcm note. Created By: Harrison Diaz Date: November 28, 2023 Method: Phone call Type: Outbound Duration (min): 3 Outcome: Case discussion Contact Type: patient day coordinator Contact Name: Harrison Diaz Notes: TCM#3- see tcm note. Created By: Harrison Diaz Date: November 21, 2023 Method: Phone call Type: Outbound Duration (min): 4 Outcome: Case discussion Contact Type: patient day coordinator Contact Name: Harrison Diaz Notes: TCM#2- see tcm note. Created By: Harrison Diaz Date: November 12, 2023 Method: Phone call Type: Outbound Duration (min): 9 Outcome: Case discussion Contact Type: patient day coordinator Contact Name: Harrison Diaz Notes: TCM#1- see tcm note. Created By: Harrison Diaz RNPremier Health [id number] HealthCase Information Case Priority: None Programs: -- Referral Source: Store Director Referral Reason: Care coordination Case Type: Transition Care Management Risk Score: -- Case Status: Enrolled (November 12, 2023) Date Assigned: November 12, 2023 Assigned By: Harrison Daiz Date Enrolled: November 12, 2023 Assigned Primary Personnel: Harrison Diaz Assigned Secondary Personnel: -- Case Physician: Ann Glasgow Ongoing Breast cancer screening by mammogram Dyskinesia of gallbladder Elevated hemoglobin A1c measurement Generalized anxiety disorder Hypertension penitentiary current use of systemic steroids Morbid obesity Osteomyelitis Pruritic condition 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 Home Medications atenolol 50 mg Tab, 50 mg, Oral, Daily, 1 refills hydrochlorothiazide-triamterene 25 mg-37.5 mg Tab, 1 [...] has her second follow up with Dr. Jones today and hopes he removes them. Patient also has a follow up chest x ray for Dr. Neff this afternoon. Patient states home health nurse was to her house yesterday and changed PICC line dressing. Patient denies any concerns with PICC. Patient denies bowel issues or concerns, denies diarrhea or constipation. Patient did disability attorney her new rx of Januvia yesterday states she will start tonight once she is home from appointments. Patient notes she wouldn't want to be out and about if she were to have GI side effects. Patient denies any further questions or concerns. Communication Events Date: November 28, 2023 Method: Phone call Type: Outbound Duration (min): 3 Outcome: Case discussion Contact Type: patient day coordinator Contact Name: Harrison Diaz Notes: TCM#3- see tcm note. Created By: Harrison Diaz Date: November 21, 2023 Method: Phone call Type: Outbound Duration (min): 4 Outcome: Case discussion Contact Type: patient day coordinator Contact Name: Harrison Diaz Notes: TCM#2- see tcm note. Created By: Harrison Diaz Date: November 12, 2023 Method: Phone call Type: Outbound Duration (min): 9 Outcome: Case discussion Contact Type: patient day coordinator Contact Name: Harrison Diaz Notes: TCM#1- see tcm note. Created By: Harrison Diaz RNP[facility] [id number] HealthCase Information Case Priority: None Programs: -- Referral Source: Store Director Referral Reason: Care coordination Case Type: Transition Care Management Risk Score: -- Case Status: Enrolled (November 12, 2023) Date Assigned: November 12, 2023 Assigned By: Harrison Diaz Date Enrolled: November 12, 2023 Assigned Primary Personnel: Harrison Diaz Assigned Secondary Personnel: -- Case Physician: Ann Glasgow Problems Ongoing Breast cancer screening by mammogram Dyskinesia of gallbladder Elevated hemoglobin A1c measurement Generalized anxiety disorder 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 Home Medications atenolol 50 mg Tab, 50 mg, Oral, Daily, 1 refills hydrochlorothiazide-triamterene 25 mg-37.5 mg Tab, 1 [...] name, street address and date of verified Program Enrollment Provides verbal consent for enrollment [...] right foot as previously reported. States it comesand goes very quickly, notes symptom is improving. Patient states sutures are intact and she has a follow up with Dr. Jones again on 11/28/23. Patient denies bowel issues or concerns, states theyare 'just fine.' Patient denies any urinary issues. Patient states she is eating and drinking 'okay.' Patient states she is sleeping good, 'sleeping better than usual actually.' Patient has not picked up Januvia RX (see previous note), she is waiting for assistance d/t unable to drive. Patient willnotify office if any issues or concerns regarding new RX. Patient denies any further questions or co ncerns. Communication Events Date: November 21, 2023 Method: Phone call Type: Outbound Duration (min): 4 Outcome: Case discussion Contact Type: patient day coordinator Contact Name: Harrison Diaz Notes: TCM#2- see tcm note. Created By: Harrison Diaz Date: November 12, 2023 Method: Phone call Type: Outbound Duration (min): 9 Outcome: Case discussion Contact Type: patient day coordinator Contact Name: Harrison Diaz Notes: TCM#1- see tcm note. 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 Elevated hemoglobin A1c measurement Osteomyelitis Former smoker Your Care Team Attending Physician - Ann Glasgow Primary Care Physician - Ann Glasgow This Is Your Medications List atenolol (atenolol 50 mg Tab) hydrOXYzine (hydrOXYzine pamoate 25 mg Cap) hydrochlorothiazide-triamterene (hydrochlorothiazide-triamterene 25 mg-37.5 mg Tab) metformin (metformin 500 mg Tab) multivitamin with minerals ondansetron (Zofran) predniSONE (predniSONE 5 mg Tab) predniSONE (predniSONE 5 mg Tab) trazodone (traZODONE 100 mg Tab) Procedures Performed Appendectomy (2017), Pleural effusion (2016), hysterectomy (1999), Colon part, Ileostomy, Adrian -Kay drain, Pyoderma, Surgery. 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 Elevated hemoglobin A1c measurement Pickup at [facility]/pharmacy #[id number]\.br\ New trazodone (traZODONE 100 mg Tab) 1 Tablets By Mouth Once a day (at bedtime) Ref ills: 3 Pickup at [facility]/pharmacy #[id number]\.br\ Unchanged atenolol (atenolol 50 mg Tab) 50 Milligram By Mouth Every day\.br\ Unchanged hydrochlorothiazide- triamterene (hydrochlorothiazide-triamterene 25 mg-37.5 mg Tab) 1 Tablets By Mouth Every day\.br\ Unchanged hydrOXYzine (hydrOXYzine pamoate 25 mg Cap) 1 Capsules By Mouth 4 times a day as needed for for anxiety\.br\ Unchanged multivitamin with minerals\.br\ Unchanged ondansetron (Zofran) 4 Milligram By Mouth 2 times a day as needed for as needed for nausea/vomiting\.br\ Unchanged predniSONE (predniSONE 5 mg Tab) 3 Tablets By Mouth Every day\.br\Unchanged predniSONE (predniSONE 5 mg Tab) See instructions TAKE 2 BY MOUTH EVERY DAY IN THE MORNING Pickup at [facility]/pharmacy #[id number]\.br\ Pharmacy Information\.br\ [facility]/pharmacy #[id number]: [address], [place] [phone] [phone]\.br\ Allergies\.br\ Augmentin (Sickness)\.br\ Bactrim (bloody stool)\.br\ Latex\.br\ Red Dye (insomnia)\.br\ calcium channel blockers (tachycardia)\.br\ vancomycin ( itching)\.br\ Problems\.br\ Ongoing - Any problem that you are currently receiving treatment for.\.br\ Breast cancer screening by mammogram\.br\ Dyskinesia of gallbladder\.br\ Elevated hemoglobin N9ltagtotlkpeb\.br\ Generalized anxiety disorder\.br\ Hypertension\.br\ 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 Please share your experience with us by completing your survey. We appreciate your feedback and thank you for choosing us for your care.\.br\ \.br\[facility] Office/Clinic Noteon [id number] Office/Clinic NoteHPI Staff Jarett is a 58 year old female presenting for TCM follow up TCM: Hospital: [facility] Admission date: 11/08/23 Discharge date: 11/09/23 Symptoms the patient presented with: Testing: biopsy right foot Current concerns: pt discharged with home health , While in hospital A1c 7.7 no history of Diabetesbut is on custodial use of steroids for RA pt has appointment with RA doctors 12/09/23 she is about out of prednisone and wanted to know if shecould get a short term supply to last until her appointment. Due to her foot she has to cancel withhe doctor and now they don't want to refill until she comes in for her appointment. 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 that is the only thing that helps control her pain. is in need of refill. discussed custodial uses of steroids risks vs. benefits. RTC 3 months for HGAB1C Ordered: metformin, 500 mg = 1 tab(s), Oral, BID, # 180 tab(s), Refills(s) 0, Pharmacy: [facility]/pharmacy #[id number], 157, cm, 11/14/23 14:07:00 EDT, Height/Length Dosing TCM Trans care mgmt 7 day disch 91753 2. Elevated hemoglobin A1c measurement (R73.09: Other abnormal glucose) HGBA1C in hospital was 7.7. will start metformin and repeat in 3 months Ordered: metformin, 500 mg = 1 tab(s), Oral, BID, # 180 tab(s), Refills(s) 0, Pharmacy: [facility]/pharmacy #[id number], 157, cm, 11/14/23 14:07:00 EDT, Height/Length Dosing TCM Trans care mgmt 7 day disch 25721 3. Osteomyelitis (M86.9: Osteomyelitis, unspecified) pt was in hospital for osteomyelitis. had biopsy by Dr. Jones. will follow up with him this afternoon. Ordered: TCM Trans care mgmt 7 day disch 29353 4. Former smoker (Z87.891: Personal history of nicotine dependence) continue not smoking Ordered: metformin, 500 mg = 1 tab(s), Oral, BID, # 180 tab(s), Refills(s) 0, Pharmacy: [facility]/pharmacy #6177, 157, cm, 11/14/23 14:07:00 EDT, Height/Length Dosing TCM Trans care mgmt 7 day disch [id number] Orders: predniSONE, See Instructions, TAKE 2 BY MOUTH EVERY DAY IN THE MORNING, # 60 tab(s), Refills(s) 0, Pharmacy: [facility]/pharmacy #6177, 157, cm, 11/14/23 14:07:00 EDT, Height/Length Dosing trazodone, 100 mg = 1 tab(s), Oral, Once a day (at bedtime), # 45 EA, Refills(s) 3, Pharmacy: [facility]/pharmacy #6177, 160.6, cm, 11/29/22 14:47:00 EDT, Height/Length Dosing trazodone, 100 mg = 1 tab(s), Oral, Once a day (at bedtime), # 45 EA, Refills(s) 3, Pharmacy: [facility]/pharmacy #6177, 157, cm, 11/14/23 14:07:00 EDT, Height/Length Dosing Follow-up No qualifying data available Problem List/Past Medical History Ongoing Breast cancer screening by mammogram Dyskinesia of gallbladder Elevated hemoglobin A1c measurement Generalized anxiety disorder Hypertension 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 Medications atenolol 50 mg Tab, 50 mg, Oral, Daily, 1 refills hydrochlorothiazide-triamterene 25 mg-37.5 mg Tab, 1 [...] age [address] (more content not included)...[facility] HospitalComment on above:Result Comment: Electronically Signed By: Ann Glasgow\.br\Date and Time Signed: 11/14/23 14:43 EDTOShore Memorial Hospital Correspondenceon [id number] Regional [facility] Correspondence [id number]#1.00TIFMount St. Mary HospitalRAD - MISAtrium Health University City [id number] - [facility] [id number]#1.00[facility] [id number] HealthCase Information Case Priority: None Programs: -- Referral Source: Store Director Referral Reason: Care coordination Case Type: Transition [...] (2017), hysterectomy (1999), Colon part, Ileostomy, Adrian -Kay drain, Pyoderma. Home Medications atenolol 50 mg Tab, 50 mg, Oral, Daily, 1 refills hydrochlorothiazide-triamterene 25 mg-37.5 mg Tab, 1 [...] Care Plan Progress Note Admit Date: 11/08/23 [facility] Date of Discharge: 11/09/23 Follow-up appointment scheduled? [...] Transitional Care Management Program call. Readmission risk unavailable.Reviewed d/c instructions and dx of; osteomyelitis, hyperglycemia, [...] and change the dressing. Patient denies any discha rge/drainage visible on or around area. Patient notes [...] Vidhi Oro 11/14/[address] Jones 11/14/23 at 1515. Patient denies any further questions or concerns. CN explained TCM program and provided CN contact number. Communication Events Date: November 12, 2023 Method: Phone call Type: Outbound Duration (min): 9 Outcome: Case discussion Contact Type: patient day coordinator Contact Name: Harrison Diaz Notes: TCM#1- see tcm note. Created By: Harrison Diaz RNDetwiler Memorial HospitalConsultation Noteon [id number] [id number]#1.00TIFF NormalCleveland Clinic Marymount HospitalECG 12-Leadon [id number] 12-Lead [id number]#1.00TIFFNormalCleveland Clinic Marymount HospitalOperative Reporton [id number] Report [id number]#1.00TIFFNormamandaCleveland Clinic Marymount HospitalLon [id number]: [id number] Received: 11/09/23 Status: SOU Req Num: [id number] Spec Type: Surgical Subm Dr: Sunshine Jones DPM, MS Tissues: A Bone Biopsy/Currettings (RT CUBOID BONE) B Bone Biopsy/Currettings (RT FOURTH METATARSAL) C Bone Biopsy/Currettings (RT FIFTGH METATARSAL) Procedures: HE/6, Gross/Micro L5/3, Decalcification/3 Age/ Patient Sex Location Account Attending Physician Jarett Kebede 58/F [place] [id number] Sunshine Jones DPM, MS SPEC NUM: [id number] RECD: 11/09/23 STATUS: [facility] RE NUM: [id number] MIMI: 11/08/[address]: Sunshine Jones DPM, MS ENTERED: 11/09/[address] [facility] [address]: Liana Gray SPEC TYPE: Surgical DEPT: [...] cuboid bone biopsy , consisting of 3 irregularly- shaped fragments of bone altogether measuring 1.1 x 0.5 x 0.3 cm, entirely submitted in A1 following decalcification. Specimen: [id number] Received: 11/09/23 Status: LUIS E Kamran Num: [id number] Spec Type: Surgical Subm Dr: Sunshine Joens,DPM, MS Tissues: A Bone Biopsy/Currettings (RT CUBOID BONE) B Bone Biopsy/Currettings (RT FOURTH METATARSAL) C Bone Biopsy/Currettings (RT FIFTGH METATARSAL) Procedures: HE/6, Gross/Micro L5/3, Decalcification/3 Patient: Jarett Kebede [id number] (Continued) Specimen: [id number] Received: 11/09/23 (Continued) Gross Description (Continued) Signed (signature on file) Sukhjinder Mcfadden MD 11/12/23 1707 Specimen: [id number] Received: 11/09/23 Status: LUIS E Andrew Num: [id number] Spec Type: Surgical Subm Dr: Sunshine Jones,NICOLASA, MS Tissues: A Bone Biopsy/Currettings (RT CUBOID BONE) B Bone Biopsy/Currettings (RT FOURTH METATARSAL) C Bone Biopsy/Currettings (RT FIFTGH METATARSAL) Procedures: HE/6, Gross/Micro L5/3, Decalcification/3 Patient: Jarett Kebede [id number] (Continued) Specimen: [id number] Received: 11/09/23 (Continued) Gross Description (Continued) B. [...] Osteomyelitis right ankle and foot CPT Codes 29381x2, 27470t4 Specimen: [id number] Received: 11/09/23 Status: LUIS E Katzjin Num: [id number] Spec Type: Surgical Subm Dr: Sunshine Jones,NICOLASA, MS Tissues: A Bone Biopsy/Currettings (RT CUBOID BONE) B Bone Biopsy/Currettings (RT FOURTH METATARSAL) C Bone Biopsy/Currettings (RT FIFTGH METATARSAL) Procedures: HE/6, Gross/Micro L5/3, Decalcification/3 Patient: Jarett Kebede [id number] (Continued) Signed (signature on file) Sukhjinder Mcfadden MD 11/12/23 1707 [facility]ician GroupConsultation Noteon [id number] [id number]#1.00TIFFNormalCleveland Clinic Marymount HospitalCBC AUTO DIFFon [id number] #0.1 103/ulNormal0.0-0.1The [facility] Southeast OhioComment on above:Performed By: #### CBC #### [facility] [address] [place] [address] Dr. Rox UsBasophils/100 WBC (Bld)0.4 %Normal0.2-2.0The [facility] Comment on above:Performed By: #### CBC #### [facility] [address] [address] [address] Rox Flowers #0.2 103/ulNormal0.0-0.7The [facility] OhioComment on above: Performed By: #### CBC #### [facility] [address] [address] [address] Rox Bakerosinophils/100 WBC (Bld)1.5 %Normal0.9-7.0The [facility] Comment on above:Performed By: #### CBC #### [facility] [address] [address] [address] Rox Bakerrythrocyte distribution width (RBC) [Ratio]15.4 %Critically high 11.0-15.0The [facility] OhioComment on above:Performed By: #### CBC #### [facility] [address] [place] [address] Dr. Rox UsHematocrit (Bld) [Volume fraction]51.3 %Critically high36.0-48.0 The [facility] OhioComment on above:Performed By: #### CBC #### [facility] [address] [address] [address] Rox UsHemoglobin (Bld) [Mass/Vol]15.7 g/vZAtnmcr81.0-16.0The [facility] OhioComment on above:Performed By: #### CBC #### [facility] [address] [address] [address] Rox Manzo #0.07 10e3/ulCritically high0.00-0.03The [facility] Comment on above:Performed By: #### CBC #### [facility] [address] [address] [address] Rox Manzo %0.6 %Critically high0.0-0.5The [facility] OhioComment on above:Performed By: #### CBC #### [facility] [address] [address] [address] Rox Cowart #1.8 103/ulNormal1.2-3.8The [facility] OhioComment on above:Performed By: #### CBC #### [facility] [address] [address] [address] Rox Alvaradohocytes/100 WBC (Bld)15.2 %Critically low20.5-60.0The [facility] Hospitalment on above:Performed By: #### CBC #### [facility] [address] [address] [address] Rox GriggsUAL DIFF REQNONormalThe [facility] OhioComment on above: Performed By: #### CBC #### [facility] [address] [address] [address] Rox Mcnulty (RBC) [Entitic mass]28.6 ykKuhgjp52.7-34.0The [facility] Hospitalment on above:Performed By: #### CBC #### [facility] [address] [address] [address] Rox Mcnulty (RBC) [Mass/Vol]30.6 g/xJKfoacw02.9-35.2The [facility] HospitalComment on above:Performed By: #### CBC #### [facility] [address] [address] [address] Rox Zaman (RBC) [Entitic vol]93.6 vZLlhfza76.0-99.0The [facility] OhioComment on above:Performed By: #### CBC #### [facility] [address] [place] [address] Dr. Rox Patterson #0.8 103/ulNormal0.3-0.8The [facility] OhioComment on above:Performed By: #### CBC #### [facility] [address] [place] [address] Dr. Rox Weathersocytes/100 WBC (Bld)7.2 %Normal1.7-12.0The [facility] Comment on above:Performed By: #### CBC #### [facility] [address] [place] [address] Dr. Rox Luna #8.8 103/ulCritically high1.4-6.5The [facility] Comment on above:Performed By: #### CBC #### [facility] [address] [place] [address] Dr. Rox Plasenciautrophils/100 WBC (Bld)75.1 %Critically high43.0-75.0The [facility] OhioComment on above:Performed By: #### CBC #### [facility] [address] [place] [address] Dr. Rox Curtislet mean volume (Bld) [Entitic vol]9.5 fLNormal9.5-13.5The [facility] Southeast OhioComment on above:Performed By: #### CBC #### [facility] [address] [place] [address] Dr. Rox UsPLT302 103/skXahxer839-246Ixb [facility] OhioComment on above: Performed By: #### CBC #### [facility] [address] [place] [address] Dr. Rox UsRBC5.48 106/ulCritically high4.20-5.40The [facility] Comment on above:Performed By: #### CBC #### [facility] [address] [place] [address] Dr. Rox UsWBC11.7 103/ulCritically high4.0-11.0The [facility] OhioComment on above:Performed By: #### CBC #### [facility] [address] [place] [address] Dr. Rox BrowneF 14(COMP METB)on 98-62-8002Fyqywmy [Mass/Vol]3.1 g/dL Critically low3.4-5.0The [facility] OhioComment on above:Performed By: #### CMP #### [facility] [address] [place] [address] Dr. Rox UsAlbumin/Globulin [Mass ratio]0.7 {ratio}NormalThe [facility] OhioComment on above:Performed By: #### CMP #### [facility] [address] [place] [address] Dr. Rox MunozP [Catalytic activity/Vol]87 U/YOplqvy46-190Tik [facility] OhioComment on above:Performed By: #### CMP #### [facility] [address] [place] [address] Dr. Rox Villegas [Catalytic activity/Vol]24 U/QIyadyc21-47Ukm [facility] OhioComment on above:Performed By: #### CMP #### [facility] [address] [place] [address] Dr. Rox Sesay gap [Moles/Vol]8.5 mmol/LNormalThe [facility] OhioComment on above:Performed By: #### CMP #### [facility] [address] [place] [address] Dr. Rox UsAST [Catalytic activity/Vol]14 U/LCritically ddz17-71Bux [facility] OhioComment on above:Performed By: #### CMP #### [facility] [address] [place] [address] Dr. Rox UsBilirubin [Mass/Vol]0.3 mg/dLNormal0.2-1.0[facility] Comment on above:Performed By: #### CMP #### [facility] [address] [address] [address] Rox UsCalcium [Mass/Vol]9.3 mg/dLNormal8.5-10.1[facility] Comment on above:Performed By: #### CMP #### [facility] [address] [address] [address] Rox UsChloride [Moles/Vol]102 mmol/PIytomg18-273Tft [facility] Comment on above:Performed By: #### CMP #### [facility] [address] [address] [address] Rox UsCO2 [Moles/Vol]34.6 mmol/LCritically high21.0-32.0[facility] HospitalComment on above:Performed By: #### CMP #### [facility] [address] [address] [address] Rox UsCreatinine [Mass/Vol]0.76 mg/dLNormal0.55-1.02The [facility] OhioComment on above:Performed By: #### CMP #### [facility] [address] [address] [address] Rox BakerGFR-AF SURINAMESE>60Normal>=60The [facility] OhioComment on above:Performed By: #### CMP #### [facility] [address] [address] [address] Rox BakerGFR-NON AF SURINAMESE>60Normal>=60The [facility] OhioComment on above:Performed By: #### CMP #### [facility] [address] [address] [address] Rox UsGlobulin (S) [Mass/Vol]4.3 g/dLNormalThe [facility] OhioComment on above:Performed By: #### CMP #### [facility] [address] [address] [address] Rox UsGlucose [Mass/Vol]125 mg/dLCritically myny60-076Itc [facility] HospitalComment on above:Performed By: #### CMP #### [facility] [address] [address] [address] Rox UsPotassium [Moles/Vol]4.1 mmol/LNormal3.5-5.1The [facility] Comment on above:Performed By: #### CMP #### [facility] [address] [address] [address] Rox UsProtein [Mass/Vol]7.4 g/dLNormal6.4-8.2The [facility] Comment on above:Performed By: #### CMP #### [facility] [address] [address] [address] Rox UsSodium [Moles/Vol]141 mmol/JTcricp986-613Vsp [facility] Comment on above:Performed By: #### CMP #### [facility] [address] [address] [address] Rox UsUrea nitrogen [Mass/Vol]21.0 mg/dLCritically high7.0-18.0The [facility] OhioComment on above:Performed By: #### CMP #### [facility] [address] [address] [address] Rox Burroughs nitrogen/Creatinine [Mass ratio]27.6 mg/mgNormalThe [facility] OhioComment on above:Performed By: #### CMP #### [facility] [address] [address] [address] Rox UsSED RATE WESTERGRENon 59-42-6151GSG RATE52 mm/hrCritically high <=30The [facility] OhioComment on above:Performed By: #### SEDR #### [facility] [address] [address] [address] Rox UsAlbumin [Mass/volume] in Serum or PlasmaOrdered By: Juan Carlos Baldwin on 37-51-3514Rnzytft [Mass/Vol]3.2 g/dL3.2-5.5FRegency Hospital CompanyBasophils Auto (Bld) [#/Vol]Ordered By: Juan Carlos Baldwin on 01-12-2022 Basophils (Bld) [#/Vol]0.1 10*3/uL0.0-0.2FRegency Hospital Company Basophils/100 WBC Auto (Bld)Ordered By: Juan Carlos Baldwin on 01-12-2022 Basophils/100 WBC (Bld)0.5 %[facility] HospitalBlood hemoglobin measurement (mass/volume)Ordered By: Juan Carlos Baldwin on 53-52-4660Bgwjysnjnv (Bld) [Mass/Vol]13.8 g/dL11.8-15.4FRegency Hospital CompanyBlood leukocytes automated count (number/volume)Ordered By: Juan Carlos Baldwin on 18-65-9633OUE (Bld) [#/Vol]9.7 10*3/uL4.5-11.0[facility] Creatinine and Glomerular filtration rate.predicted panel (S/P/Bld)Ordered By: Juan Carlos Baldwin on 07-66-1694Zjwvmwibik [Mass/Vol]0.84 mg/dL0.44-1.03[facility] HospitalEosinophils Auto (Bld) [#/Vol]Ordered By: Juan Carlos Baldwin on 88-55-4828Cdgrzoincyq (Bld) [#/Vol]0.2 10*3/uL0.0-0.45[facility] HospitalEosinophils/100 WBC Auto (Bld)Ordered By: Jaun Carlos Baldwin on 32-39-7718Umlfooeqtym/100 WBC (Bld)1.8 %[facility] Erythrocyte distribution width Auto (RBC) [Ratio]Ordered By: Juan Carlos Baldwin on 26-36-2781Uivbgrpwrls distribution width (RBC) [Ratio]17.4 %11.9-15.3FRegency Hospital CompanyErythrocyte sedimentation rate by Photometric method Ordered By: Juan Carlos Baldwin on 73-37-1157CYZ Photometric method (Bld) [Velocity] 47 mm/hr0[facility] HospitalEstimated glomerular filtration rate (GFR) non- AmericanOrdered By: Juan Carlos Baldwin on 21-46-7369EMG/1.73 sq M.predicted among non-blacks MDRD (S/P/Bld) [Vol rate/Area]> 60 mL/Min [facility] HospitalGlobulin Calc (S) [Mass/Vol]Ordered By: Juan Carlos Baldwin on 55-63-3403Raudrimp (S) [Mass/Vol]3.7 g/dLKettering Memorial HospitalHematocrit Auto (Bld) [Volume fraction]Ordered By: Juan Carlos Baldwin on 34-13-3030Dmzgyrknnm (Bld) [Volume fraction]42.7 %34.0-46.4FRegency Hospital CompanyLaboratory - Hematology and Cell countsOrdered By: Juan Carlos Baldwin on 56-76-2126Kuharqgrl RBC/100 WBC (Bld) [Ratio]0.1 %0-0.5FRegency Hospital CompanyLymphocytes Auto (Bld) [#/Vol]Ordered By: Juan Carlos Baldwin on 51-29-8442Rctrkfxgcmh (Bld) [#/Vol]1.8 10*3/uL1.00-4.8[facility] HospitalLymphocytes/100 WBC Auto (Bld)Ordered By: Juan Carlos Baldwin on 01-12-2022 Lymphocytes/100 WBC (Bld)18.3 %[facility] HospitalH Auto (RBC) [Entitic mass]Ordered By: Juan Carlos Baldwin on 20-35-9075TCG (RBC) [Entitic mass] 27.4 pg24.7-34.3FRegency Hospital CompanyMCHC Auto (RBC) [Mass/Vol] Ordered By: Juan Carlos Baldwin on 89-84-7268IPCD (RBC) [Mass/Vol]32.4 g/dL32.0-35.0 [facility] HospitalMCV Auto (RBC) [Entitic vol]Ordered By: Juan Carlos Baldwin on 64-73-3154CPT (RBC) [Entitic vol]84.5 aJ27-536EpeogqbepKettering Memorial HospitalMonocytes Auto (Bld) [#/Vol]Ordered By: Juan Carlos Baldwin on 19-33-8388Xfpehksay (Bld) [#/Vol]0.6 10*3/uL0.0-0.8[facility] HospitalMonocytes/100 WBC Auto (Bld)Ordered By: Juan Carlos Baldwin on 01-12-2022 Monocytes/100 WBC (Bld)6.5 %[facility] HospitalNeutrophils Auto (Bld) [#/Vol]Ordered By: Juan Carlos Baldwin on 39-25-6319Dfzrewzfjfk (Bld) [#/Vol] 7.1 10*3/uL1.8-7.7FRegency Hospital CompanyNeutrophils/100 WBC Auto (Bld)Ordered By: Juan Carlos Baldwin on 10-97-1351Ytqxvbotrzb/100 WBC (Bld)72.9 % [facility] HospitalNo Panel InformationOrdered By: Juan Carlos Baldwin on 04-37-9336Pajfqncbq GFR ()> 60 mL/MinKettering Memorial HospitalComment on above:GFR estimated reference range: According to KDOQI guidelines, <60 ml/min/1.73m2 is sufficient todiagnose a patient with chronic kidney disease.Pharmacy Creatinine Clearance (ChemN/[facility] HospitalPlatelet mean volume Auto (Bld) [Entitic vol]Ordered By: Juan Carlos Baldwin on 58-47-8768Ogtguekz mean volume (Bld) [Entitic vol]8.1 fL6.3-10.7FRegency Hospital CompanyPlatelets Auto (Bld) [#/Vol]Ordered By: Juan Carols Baldwin on 52-75-2531Ujidxxhtw (Bld) [#/Vol]341 10*3/fX972-131YfaeztjvoKettering Memorial HospitalProtein [Mass/volume] in Serum or PlasmaOrdered By: Juan Carlos Baldwin on 38-53-8640Wpbokba [Mass/Vol]6.9 g/dL6.1-7.9[facility] HospitalRBC Auto (Bld) [#/Vol]Ordered By: Juan Carlos Baldwin on 44-29-3493PAV (Bld) [#/Vol]5.06 10*6/uL3.60-5.00Madison Healtherum or plasma alanine aminotransferase measurement without P-5'-P (enzymatic activiOrdered By: Juan Carlos Baldwin on 24-31-9608JZM No additional P-5'-P [Catalytic activity/Vol]15 U/L Madison Healtherum or plasma albumin/globulin mass ratioOrdered By: Juan Carlos Baldwin on 74-46-6035Hzsynfp/Globulin [Mass ratio]0.9 {ratio}Madison Healtherum or plasma alkaline phosphatase measurement (enzymatic activity/volume)Ordered By: Juan Carlos Baldwin on 01-12-2022 ALP [Catalytic activity/Vol]76 U/E00-98HalmyfwzdMadison Healtherum or plasma aspartate aminotransferase measurement (enzymatic activity/volume)Ordered By: Juan Carlos Baldwin on 19-74-1647AYE [Catalytic activity/Vol]16 U/O37-76RintnqtmqMadison Healtherum or plasma calcium measurement (mass/volume)Ordered By: Juan Carlos Baldwin on 40-58-3668Mqzlran [Mass/Vol]9.6 mg/dL8.2-10.2FMercy Health Willard Hospitalerum or plasma chloride measurement (moles/volume) Ordered By: Juan Carlos Baldwin on 55-08-5176Wuyoqucf [Moles/Vol]98 mmol/L95-114 [facility] Healtherum or plasma glucose measurement (mass/volume)Ordered By: Juan Carlos Baldwin on 68-38-3457Nlhltev [Mass/Vol]115 mg/dL 70-100[facility] HospitalComment on above:ADA recommended reference range Random Glucose Reference Range is dependent on time and content of last meal. Glucose of more than 200 mg/dL in a nonstressed, ambulatory subject supports the diagnosis of Diabetes Mellitus.Serum or plasma potassium measurement (moles/volume)Ordered By: Juan Carlos Baldwin on 87-43-5200Otpxndjnr [Moles/Vol]5.0 mmol/L3.5-5.1FMercy Health Willard Hospitalerum or plasma sodium measurement (moles/volume)Ordered By: Juan Carlos Baldwin on 69-39-8613Apujmj [Moles/Vol]140 mmol/I063-947HtosoaticMadison Healtherum or plasma total bilirubin measurement (mass/volume)Ordered By: Juan Carlos Baldwin on 96-30-4891Amaxgdmcm [Mass/Vol]0.4 mg/dL0.3-1.2FMercy Health Willard Hospitalerum or plasma total carbon dioxide measurement (moles/volume)Ordered By: Juan Carlos Baldwin on 56-36-8281SE4 [Moles/Vol]29.4 mmol/L22.0-30.0[facility] Serum or plasma urea nitrogen measurement (mass/volume)Ordered By: Juan Carlos Baldwin on 23-49-6484Vujg nitrogen [Mass/Vol]17 mg/dL9-[facility] HospitalBASIC METABOLIC PANELon 13-55-7344Rxzfcvx [Mass/Vol]7.7 mg/dLLow 8.6-10.3The [facility] - [place]Comment on above:Order Comment: Yes: Add to Previous draw if ablePerformed By: #### [id number] ####[facility] [place] [address], USAChloride [Moles/Vol]104 mmol/QXwjwou57-902Xnq [facility] - [place]Comment on above:Order Comment: Yes: Add to Previous draw if ablePerformed By: #### [id number] ####[facility] [place] [address], [place]ACO2 [Moles/Vol]31 mmol/HLnyzoq25-27Leu [facility] - [place]Comment on above:Order Comment: Yes: Add to Previous draw if ablePerformed By: #### [id number] ####[facility] [place] [address], USACreatinine [Mass/Vol]0.62 mg/dLNormal0.60-1.20The [facility] - [place]Comment on above:Order Comment: Yes: Add to Previous draw if ablePerformed By: #### [id number] ####[facility] [place] [address], USAGFR/1.73 sq M predicted among blacks MDRD (S/P/Bld) [Vol rate/Area]mL/min/{1.73_m2}Normal>60The [facility] [place]Comment on above:Order Comment: Yes: Add to Previous draw if ablePerformed By: #### [id number] ####[facility] [place] [address], USAGFR/1.73 sq M predicted among non-blacks MDRD (S/P/Bld) [Vol rate/Area]mL/min/{1.73_m2}Normal>60The [facility] [place]Comment on above:Order Comment: Yes: Add to Previous draw if able Performed By: #### [id number] ####[facility] [place] [address], USAGlucose [Mass/Vol]100 mg/aRUmhzhx91-121Lvn [facility] [place]Comment on above:Order Comment: Yes: Add to Previous draw if ablePerformed By: #### [id number] ####[facility] [facility] [address], USAPotassium [Moles/Vol]4.0 mmol/LNormal3.5-5.1 The [facility] - [place]Comment on above:Order Comment: Yes: Add to Previous draw if ablePerformed By: #### [id number] ####[facility] [facility] [address], USASodium [Moles/Vol]140 mmol/UPrtpbz482-912Cap [facility] [place]Comment on above:Order Comment: Yes: Add to Previous draw if ablePerformed By: #### [id number] ####[facility] [facility] [place] [address], [place] Urea nitrogen [Mass/Vol]15 mg/dLNormal7-25The [facility] [place]stownComment on above:Order Comment: Yes: Add to Previous draw if ablePerformed By: #### [id number] ####[facility] [facility] [address] [id number], [facility] SERVICESCBC W/DIFFon 66-95-1157QLF BASOPHILS0.0 10*3/uLNormal 0.0-0.2The [facility] [place]Comment on above:Order Comment: No: Do not add to previous drawPerformed By: #### [id number] #### [facility] [address] [place] [address], USAABS NEUTROPHILS9.7 10*3/uLHigh1.6-7.6The [facility] [place]stownComment on above:Order Comment: No: Do not add to previous drawPerformed By: #### [id number] #### [facility] [address] [place] [address], USABasophils/100 WBC (Bld)0.0 %Normal0.0-1.0The [facility] - YoungstownComment on above:Order Comment: No: Do not add to previous drawPerformed By: #### [id number] #### [facility] [address] [facility] [place] [address], USAEosinophils (Bld) [#/Vol]0.3 10*3/uLNormal0.0-0.5The [facility] [place]stownComment on above:Order Comment: No: Do not add to previous drawPerformed By: #### [id number] #### [facility] [address] [place] [address], USAEosinophils/100 WBC (Bld)2.7 %Normal0.0-6.0The [facility] [place]Comment on above:Order Comment: No: Do not add to previous drawPerformed By: #### [id number] #### [facility] [address] [facility] [place] [address], USAErythrocyte distribution width (RBC) [Ratio]14.3 %Normal 11.5-15.0The [facility] [place]Comment on above:Order Comment: No: Do not add to previous drawPerformed By: #### [id number] #### [facility] [address] [facility] [place] [address], USAHematocrit (Bld) [Volume fraction]35.7 %Low36.0-45.0The [facility] [place]Comment on above:Order Comment: No: Do not add to previous drawPerformed By: #### [id number] #### [facility] [address] [facility] [place] [address], USAHemoglobin (Bld) [Mass/Vol]10.9 g/dLLow12.0-15.0The [facility] [place]Comment on above:Order Comment: No: Do not add to previous drawPerformed By: #### [id number] #### [facility] [address] [place] [address], USALymphocytes (Bld) [#/Vol]0.7 10*3/uLLow1.2-4.0The [facility] [place]Comment on above:Order Comment: No: Do not add to previous drawPerformed By: #### [id number] #### [facility] [address] [place] [address], USALymphocytes/100 WBC (Bld)6.3 %Low20.0-45.0The [facility] [place]Comment on above:Order Comment: No: Do not add to previous drawPerformed By: #### [id number] #### [facility] [address] [place] [address], [facility] – CLAREMOREH (RBC) [Entitic mass]27.3 ymCgklga76.0-33.0The [facility] [place]Comment on above:Order Comment: No: Do not add to previous drawPerformed By: #### [id number] #### [facility] [address] [place] [address], [facility] SERVICESMCHC (RBC) [Mass/Vol]30.5 g/dLLow32.0-35.0The [facility] [place]Comment on above:Order Comment: No: Do not add to previous drawPerformed By: #### [id number] #### [facility] [address] [place] [address], [facility] CARE SERVICESMCV (RBC) [Entitic vol]89.5 zRDjlukh49.0-98.0The [facility] [place]Comment on above:Order Comment: No: Do not add to previous drawPerformed By: #### 80131 #### [facility] [address] [place] [address], USAMonocytes (Bld) [#/Vol]0.8 10*3/uLNormal0.1-1.0The [facility] [place]Comment on above:Order Comment: No: Do not add to previous drawPerformed By: #### [id number] #### [facility] [address] [place] [address], USAMONOS7.2 %Normal5.0-12.0The [facility] - [place]Comment on above:Order Comment: No: Do not add to previous drawPerformed By: #### 79010 #### [facility] [address] [place] [address], USAMYELOS0.9 %High0.0-0.0The [facility] [place]Comment on above:Order Comment: No: Do not add to previous drawPerformed By: #### 64362 #### [facility] [address] [place] [address], USANeutrophils/100 WBC (Bld)82.9 %High40.0-72.0The [facility] - [place]Comment on above:Order Comment: No: Do not add to previous drawPerformed By: #### [id number] #### [facility] [address] [place] [address], USANucleated RBC/100 WBC (Bld) [Ratio]0 %Normal0-0The [facility] [place]Comment on above:Order Comment: No: Do not add to previous drawPerformed By: #### [id number] #### [facility] [address] [place] [address], USAPLAT QGP622 10*3/bYEnvrio124-086Cgn [facility] [place]Comment on above:Order Comment: No: Do not add to previous draw Performed By: #### [id number] #### [facility] [address] [place] [address], USARBC (Bld) [#/Vol]3.99 10*6/uLNormal3.80-5.00The [facility] [place]Comment on above:Order Comment: No: Do not add to previous drawPerformed By: #### [id number] #### [facility] [address] [place] [address], USAWBC (Bld) [#/Vol]11.71 10*3/uLHigh4.00-10.60The [facility] [place]Comment on above:Order Comment: No: Do not add to previous drawPerformed By: #### [id number] #### [facility] [address] [place] [address], USABASIC METABOLIC PANELon 46-62-9166Znloqpf [Mass/Vol]7.8 mg/dLLow8.6-10.3The [facility] [place]Comment on above:Order Comment: No: Do not add to previous drawPerformed By: #### 31742, 19161, 87037 ####[facility] [place] [address], [place] Chloride [Moles/Vol]102 mmol/BXezkau33-669Cpr [facility] [place]Comment on above:Order Comment: No: Do not add to previous drawPerformed By: #### 95107, 80059, 89459 ####[facility] [place] [address], USACO2 [Moles/Vol]32 mmol/YEqtm20-04Tao [facility] [place]stownComment on above:Order Comment: No: Do not add to previous drawPerformed By: #### 26246, 61910, 72261 ####[facility] [place] [address], USACreatinine [Mass/Vol]0.73 mg/dLNormal0.60-1.20The [facility] [place] Comment on above:Order Comment: No: Do not add to previous drawPerformed By: #### 63321, 47723, 46252 ####[facility] [place] [address], USAGFR/1.73 sq M predicted among blacks MDRD (S/P/Bld) [Vol rate/Area]mL/min/{1.73_m2}Normal>60The [facility] Comment on above:Order Comment: No: Do not add to previous drawPerformed By: #### 14000, 63212, 00403 ####[facility] [place] [address], USAGFR/1.73 sq M predicted among non-blacks MDRD (S/P/Bld) [Vol rate/Area]mL/min/{1.73_m2}Normal>60The [facility] Comment on above:Order Comment: No: Do not add to previous drawPerformed By: #### 18452, 65799, 36355 ####[facility] [place] [address], [facility] CARE SERVICESGlucose [Mass/Vol]95 mg/tCMrodot14-009Zmc [facility] [place]Comment on above:Order Comment: No: Do not add to previous drawPerformed By: #### 13749, 09420, 93745 ####[facility] [facility] [address], USAPotassium [Moles/Vol]3.8 mmol/L Normal3.5-5.1The [facility] - [place]stownComment on above:Order Comment: No: Do not add to previous drawPerformed By: #### 86984, 82860, 64367 ####[facility] [place] [address], [place] Sodium [Moles/Vol]139 mmol/XDugrqj021-689Zun [facility] [place] Comment on above:Order Comment: No: Do not add to previous drawPerformed By: #### 30184, 56194, 68139 ####[facility] [place] [address], USAUrea nitrogen [Mass/Vol]18 mg/dLNormal7-25The [facility] - [place]stownComment on above:Order Comment: No: Do not add to previous drawPerformed By: #### 19033, 22582, 17320 ####[facility] [place] [address], USACBC COMPLETE BLOOD COUNTon 23-75-3554Prkzzgiadeu distribution width (RBC) [Ratio]14.3 %Normal 11.5-15.0The [facility] - [place]stownComment on above:Order Comment: Yes: Add to Previous draw if ablePerformed By: #### 52465 #### [facility] [address] [place] [address], USAHematocrit (Bld) [Volume fraction]36.8 %Jamilz20.0-45.0The [facility] - [place]stownComment on above:Order Comment: Yes: Add to Previous draw if ablePerformed By: #### 56851 #### [facility] [address] [place] [address], USAHemoglobin (Bld) [Mass/Vol]11.2 g/dLLow12.0-15.0The [facility] - [place]stownComment on above:Order Comment: Yes: Add to Previous draw if ablePerformed By: #### [id number] #### [facility] [address] [place] [address], [facility] (RBC) [Entitic mass]27.3 fiZnlpwz09.0-33.0The [facility] - YoungstownComment on above:Order Comment: Yes: Add to Previous draw if ablePerformed By: #### [id number] #### [facility] [address] [place] [address], [facility] SERVICESMCHC (RBC) [Mass/Vol]30.4 g/dLLow32.0-35.0The [facility] - YoungstownComment on above:Order Comment: Yes: Add to Previous draw if ablePerformed By: #### [id number] #### [facility] [address] [place] [address], USAMCV (RBC) [Entitic vol]89.5 jDUtvkht43.0-98.0The [facility] - YoungstownComment on above:Order Comment: Yes: Add to Previous draw if ablePerformed By: #### [id number] #### [facility] [address] [place] [address], USANucleated RBC/100 WBC (Bld) [Ratio]0 %Normal0-0The [facility] - YoungstownComment on above:Order Comment: Yes: Add to Previous draw if ablePerformed By: #### [id number] #### [facility] [address] [place] [address], USAPLAT [id number] 10*3/xXJexu173-227Vdr [facility] YoungstownComment on above:Order Comment: Yes: Add to Previous draw if able Performed By: #### [id number] #### [facility] [address] [place] [address], USARBC (Bld) [#/Vol]4.11 10*6/uLNormal3.80-5.00The [facility] - YoungstownComment on above:Order Comment: Yes: Add to Previous draw if ablePerformed By: #### 76921 #### [facility] [address] [place] [address], USAWBC (Bld) [#/Vol]14.15 10*3/uLHigh4.00-10.60The [facility] - YoungstownComment on above:Order Comment: Yes: Add to Previous draw if ablePerformed By: #### [id number] #### [facility] [address] [place] [address], USAMAGNESIUM BLOODon 14-86-4664Lekndtjuy [Mass/Vol]2.3 mg/dL Normal1.9-2.7The [facility] - YoungstownComment on above:Performed By: #### 74631, [id number], 99119 ####[facility] [place] [address], USAPHOSPHORUS BLOODon 92-19-3635Blchmsnul [Mass/Vol]2.7 mg/dLNormal2.5-5.0The [facility] YoungstownComment on above:Performed By: #### 76155, [id number], 87944 ####[facility] [place] [address], USABASIC METABOLIC PANELon 10-26-3930Alnnkto [Mass/Vol]8.0 mg/dLLow8.6-10.3The [facility] - YoungstownComment on above:Order Comment: No: Do not add to previous drawPerformed By: #### 13201 ####[facility] [place] [address], USAChloride [Moles/Vol]102 mmol/GNbngms33-265Zxv [facility] YoungstownComment on above:Order Comment: No: Do not add to previous draw Performed By: #### 93320 ####[facility] [place] [address], USACO2 [Moles/Vol]32 mmol/WGhdw04-67Gsl [facility] YoungstownComment on above:Order Comment: No: Do not add to previous drawPerformed By: #### [id number] ####[facility] [place] [address], USACreatinine [Mass/Vol]0.73 mg/dLNormal 0.60-1.20The [facility] YoungstownComment on above:Order Comment: No: Do not add to previous drawPerformed By: #### 79111 ####[facility] [place] [address], USAGFR/1.73 sq M predicted among blacks MDRD (S/P/Bld) [Vol rate/Area]mL/min/{1.73_m2}Normal>60The [facility] YoungstownComment on above:Order Comment: No: Do not add to previous drawPerformed By: #### 13610 ####[facility] [place] [address], USAGFR/1.73 sq M predicted among non- blacks MDRD (S/P/Bld) [Vol rate/Area]mL/min/{1.73_m2}Normal>60The [facility] YoungstownComment on above:Order Comment: No: Do not add to previous drawPerformed By: #### 37714 ####[facility] [place] [address], USAGlucose [Mass/Vol]107 mg/aYXppl27-043Wgv [facility] YoungstownComment on above:Order Comment: No: Do not add to previous drawPerformed By: #### 21735 ####[facility] [place] [address], USAPotassium [Moles/Vol]4.0 mmol/L Normal3.5-5.1The [facility] YoungstownComment on above:Order Comment: No: Do not add to previous drawPerformed By: #### [id number] ####[facility] [place] [address], USASodium [Moles/Vol]138 mmol/IVoxpjb120-652Ufz [facility] YoungstownComment on above:Order Comment: No: Do not add to previous drawPerformed By: #### 53976 ####[facility] [place] [address], [place] Urea nitrogen [Mass/Vol]20 mg/dLNormal7-25The [facility] YoungstownComment on above:Order Comment: No: Do not add to previous drawPerformed By: #### 58668 ####[facility] [facility] [address], USACBC W/DIFFon 83-68-0342FOG BASOPHILS0.1 10*3/uLNormal0.0-0.2The [facility] YoungstownComment on above:Order Comment: Yes: Add to Previous draw if ablePerformed By: #### 86839 ####[facility] [facility] [place] [address], USAABS IMM GRANS0.2 10*3/uLNormal 0.0-0.2The [facility] YoungstownComment on above:Order Comment: Yes: Add to Previous draw if ablePerformed By: #### 75669 ####[facility] [facility] [place] [address], [facility] SERVICESABS BPHLLCRIQJH18.8 10*3/uLHigh1.6-7.6The [facility] YoungstownComment on above:Order Comment: Yes: Add to Previous draw if ablePerformed By: #### 33078 ####[facility] [facility] [place] [address], [place] Basophils/100 WBC (Bld)0.4 %Normal0.0-1.0The [facility] [place] Comment on above:Order Comment: Yes: Add to Previous draw if ablePerformed By: #### 93790 ####[facility] [facility] [place] [address], USAEosinophils (Bld) [#/Vol]0.3 10*3/uLNormal0.0-0.5The [facility] YoungstownComment on above:Order Comment: Yes: Add to Previous draw if ablePerformed By: #### 84571 ####[facility] [facility] [place] [address], USAEosinophils/100 WBC (Bld)2.0 %Normal0.0-6.0 The [facility] YoungstownComment on above:Order Comment: Yes: Add to Previous draw if ablePerformed By: #### [id number] ####[facility] [place] [address], USAErythrocyte distribution width (RBC) [Ratio]14.2 %Zwpsbi45.5-15.0The [facility] [place] Comment on above:Order Comment: Yes: Add to Previous draw if ablePerformed By: #### 80802 ####[facility] [facility] [place] [address], [facility] SERVICESHematocrit (Bld) [Volume fraction]36.9 %Mbblps71.0-45.0The [facility] YoungstownComment on above:Order Comment: Yes: Add to Previous draw if ablePerformed By: #### 59143 ####[address] [place] [address], [facility] SERVICESHemoglobin (Bld) [Mass/Vol]11.3 g/dLLow 12.0-15.0The [facility] YoungstownComment on above:Order Comment: Yes: Add to Previous draw if ablePerformed By: #### 48326 ####[facility] [facility] [place] [address], [facility] SERVICESIMMATURE GRANS1.3 % High0.0-1.0The [facility] YoungstownComment on above:Order Comment: Yes: Add to Previous draw if ablePerformed By: #### [id number] ####[address] [place] [address], [facility] Lymphocytes (Bld) [#/Vol]0.8 10*3/uLLow1.2-4.0The [facility] YoungstownComment on above:Order Comment: Yes: Add to Previous draw if ablePerformed By: #### 43247 ####[facility] [place] [address], [facility] SERVICESLymphocytes/100 WBC (Bld)5.7 %Low20.0-45.0The [facility] YoungstownComment on above:Order Comment: Yes: Add to Previous draw if ablePerformed By: #### 68488 ####[facility] [place] [address], [facility] SERVICESMCH (RBC) [Entitic mass]27.5 pg Xfezyh74.0-33.0The [facility] YoungstownComment on above:Order Comment: Yes: Add to Previous draw if ablePerformed By: #### 65346 ####[facility] [place] [address].[place] [address], [facility] MCHC (RBC) [Mass/Vol]30.6 g/dLLow32.0-35.0The [facility] YoungstownComment on above:Order Comment: Yes: Add to Previous draw if ablePerformed By: #### 62774 ####[address] [place] [address], [facility] SERVICESMCV (RBC) [Entitic vol]89.8 cFXupglu99.0-98.0The [facility] YoungstownComment on above:Order Comment: Yes: Add to Previous draw if ablePerformed By: #### [id number] ####[address] [place] [address], [facility] SERVICESMonocytes (Bld) [#/Vol]1.1 10*3/uL High0.1-1.0The [facility] YoungstownComment on above:Order Comment: Yes: Add to Previous draw if ablePerformed By: #### 21462 ####[address] [place] [address], [facility] MONOS7.7 %Normal5.0-12.0The [facility] YoungstownComment on above: Order Comment: Yes: Add to Previous draw if ablePerformed By: #### 02973 ####[address] [place] [address], [facility] Neutrophils/100 WBC (Bld)82.9 %High40.0-72.0The [facility] YoungstownComment on above:Order Comment: Yes: Add to Previous draw if ablePerformed By: #### 46598 ####[facility] [place] [address], USANucleated RBC/100 WBC (Bld) [Ratio]0 %Normal0-0The [facility] YoungstownComment on above:Order Comment: Yes: Add to Previous draw if ablePerformed By: #### 30395 ####[facility] [facility] [place] [address], USAPLAT [id number] 10*3/hABenpov753-770 The [facility] YoungstownComment on above:Order Comment: Yes: Add to Previous draw if ablePerformed By: #### 74526 ####[facility] [facility] [place] [address], [facility] SERVICESRBC (Bld) [#/Vol]4.11 10*6/uLNormal3.80-5.00The [facility] YoungstownComment on above: Order Comment: Yes: Add to Previous draw if ablePerformed By: #### 42205 ####[facility] [facility] [place] [address], [facility] WBC (Bld) [#/Vol]14.21 10*3/uLHigh4.00-10.60The [facility] YoungstownComment on above:Order Comment: Yes: Add to Previous draw if ablePerformed By: #### 08896 ####[facility] [facility] [place] [address], [facility] SERVICESAPTTon 31-97-6205hTJF Coag (Bld) [Time]39.7 sHigh 25.0-35.0The [facility] YoungstownComment on above:Order Comment: Yes: Add to Previous draw if ableResult Comment: ALL RESULTS MUST BE INTERPRETED WITH RESPECT TO BLOOD DRAWING ARTIFACT OR DILUTION ERROR OF ANTICOAGULANT AT THE TIME OF SAMPLING. THE APTT SHOULD NOT BE USED TO MONITOR UNFRACTIONATED HEPARIN THERAPY, THIS LABORATORY NO LONGER HAS AN ESTABLISHED THERAPEUTIC RANGE BASED ON THE APTT. IT IS RECOMMENDED THAT THE UFH - HEPARIN ASSAY (ANTI-XA ACTIVITY) BE USED FOR THIS PURPOSE.Performed By: #### [id number] #### [facility] [address] [facility] [place] [address], USACBC W/DIFFon 30-04-4315YNK BASOPHILS0.0 10*3/uLNormal 0.0-0.2The [facility] YoungstownComment on above:Order Comment: Yes: Add to Previous draw if ablePerformed By: #### 86949 #### [facility] [address] [facility] [place] [address], USAABS IMM GRANS0.1 10*3/uLNormal0.0-0.2The [facility] YoungstownComment on above:Order Comment: Yes: Add to Previous draw if ablePerformed By: #### 91452 #### [facility] [address] [facility] [place] [address], USAABS KOBEHQPAZCE28.1 10*3/uLHigh1.6-7.6The [facility] YoungstownComment on above:Order Comment: Yes: Add to Previous draw if ablePerformed By: #### 47247 #### [facility] [address] [facility] [place] [address], USABasophils/100 WBC (Bld)0.1 %Normal0.0-1.0The [facility] YoungstownComment on above:Order Comment: Yes: Add to Previous draw if ablePerformed By: #### 90119 #### [facility] [address] [facility] [place] [address], USAEosinophils (Bld) [#/Vol]0.2 10*3/uLNormal0.0-0.5The [facility] YoungstownComment on above:Order Comment: Yes: Add to Previous draw if ablePerformed By: #### 88751 #### [facility] [address] [facility] [place] [address], USAEosinophils/100 WBC (Bld)1.1 %Normal0.0-6.0The [facility] YoungstownComment on above:Order Comment: Yes: Add to Previous draw if ablePerformed By: #### 28267 #### [facility] [address] [place] [address], USAErythrocyte distribution width (RBC) [Ratio]14.1 %Normal 11.5-15.0The [facility] YoungstownComment on above:Order Comment: Yes: Add to Previous draw if ablePerformed By: #### 45344 #### [facility] [address] [place] [address], USAHematocrit (Bld) [Volume fraction]38.0 %Xfwkwp99.0-45.0The [facility] YoungstownComment on above:Order Comment: Yes: Add to Previous draw if ablePerformed By: #### 92599 #### [facility] [address] [place] [address], USAHemoglobin (Bld) [Mass/Vol]11.7 g/dLLow12.0-15.0The [facility] YoungstownComment on above:Order Comment: Yes: Add to Previous draw if ablePerformed By: #### [id number] #### [facility] [address] [place] [address], USAIMMATURE GRANS0.8 %Normal0.0-1.0The [facility] YoungstownComment on above:Order Comment: Yes: Add to Previous draw if able Performed By: #### 85242 #### [facility] [address] [place] [address], USALymphocytes (Bld) [#/Vol]0.8 10*3/uLLow1.2-4.0The [facility] YoungstownComment on above:Order Comment: Yes: Add to Previous draw if ablePerformed By: #### 88941 #### [facility] [address] [place] [id number], USALymphocytes/100 WBC (Bld)5.1 %Low20.0-45.0The [facility] YoungstownComment on above:Order Comment: Yes: Add to Previous draw if ablePerformed By: #### 55912 #### [facility] [address] [place] [address], [facility] (RBC) [Entitic mass]27.5 nxShldim17.0-33.0The [facility] YoungstownComment on above:Order Comment: Yes: Add to Previous draw if ablePerformed By: #### 70687 #### [facility] [address] [place] [address], [facility] (RBC) [Mass/Vol]30.8 g/dLLow32.0-35.0The [facility] YoungstownComment on above:Order Comment: Yes: Add to Previous draw if ablePerformed By: #### 27936 #### [facility] [address] [place] [address], [facility] (RBC) [Entitic vol]89.4 uPLrfvwe95.0-98.0The [facility] YoungstownComment on above:Order Comment: Yes: Add to Previous draw if ablePerformed By: #### 36724 #### [facility] [address] [place] [address], USAMonocytes (Bld) [#/Vol]1.0 10*3/uLNormal0.1-1.0The [facility] YoungstownComment on above:Order Comment: Yes: Add to Previous draw if ablePerformed By: #### 29604 #### [facility] [address] [place] [address], USAMONOS6.5 %Normal5.0-12.0The [facility] YoungstownComment on above:Order Comment: Yes: Add to Previous draw if ablePerformed By: #### 68017 #### [facility] [address] [place] [address], USANeutrophils/100 WBC (Bld)86.4 %High40.0-72.0The [facility] YoungstownComment on above:Order Comment: Yes: Add to Previous draw if ablePerformed By: #### 79974 #### [facility] [address] [place] [address], USANucleated RBC/100 WBC (Bld) [Ratio]0 %Normal0-0The [facility] YoungstownCompaul [facility] on above:Order Comment: Yes: Add to Previous draw if ablePerformed By: #### 80239 #### [facility] [address] [place] [address], USAPLAT [id number] 10*3/xTApljox872-112Nfa [facility] YoungstownComment on above:Order Comment: Yes: Add to Previous draw if able Performed By: #### 89741 #### [facility] [address] [place] [address], USARBC (Bld) [#/Vol]4.25 10*6/uLNormal3.80-5.00The [facility] YoungstownComment on above:Order Comment: Yes: Add to Previous draw if ablePerformed By: #### 55447 #### [facility] [address] [place] [address], USAWBC (Bld) [#/Vol]15.11 10*3/uLHigh4.00-10.60The [facility] YoungstownCompaul [facility] on above:Order Comment: Yes: Add to Previous draw if ablePerformed By: #### 46058 #### [facility] [address] [place] [address], USACT DRAINAGE RETROPERITONEALon 15-41-6004GL DRAINAGE RETROPERITONEALUnTogus VA Medical Center Department of Radiology [address] [place] [address] Patient Name: JARETT KEBEDE : 1965 Sex: F Age: Race: White Pt. Location: [id number] Patient Status: I Ordered Date: 08/03/2020 6:05:00 [...] risks are acceptable. Consent was obtained. Timeout: [facility] protocol timeout verification performed. PROCEDURE: Estimated blood [...] achievable Electronically signed: Jovani Gold. Transcribed by: [email or web address], User Resident: Electronically Signed by: JOVANI GOLD @ 08/04/2020 01:00 PMNormalThe [facility] YoungstownComment on above:Order Comment: Fluid CollectionMRI CHEST W WO CONTRASTon 31-48-1827TOD CHEST W WO CONTRASTUnTogus VA Medical Center Department of Radiology [address] [place] [address] Patient Name: JARETT KEBEDE : 1965 Sex: F Age: Race: White Pt. Location: [id number] Patient Status: I Ordered Date: 08/02/2020 2:15:00 [...] appropriate Electronically signed: Fredy Bennett. Transcribed by: [email or web address], User Resident: Electronically Signed by: FREDY BENNETT @ 08/04/2020 07:38 PMNormalThe [facility] YoungstownComment on above:Order Comment: Yes: Add to Previous draw if ablePROTHROMBIN TIMEon 49-73-5759PDD Coag (PPP) [Relative time] 1.40 {INR}High0.91-1.16The [facility] YoungstownComment on above: Order Comment: Yes: Add to Previous draw if ableResult Comment: ACCCP RECOMMENDED INR FOR WARFARIN THERAPY ------- CONDITION INR PROPHYLAXIS OF VENOUS THROMBOSIS 2-3 (HIGH-RISK SURGERY) TREATMENT OF VENOUS THROMBOSIS 2-3 TREATMENT OF PULMONARY EMBOLISM 2-3 PREVENTION OF SYSTEMIC EMBOLISM: 2-3 ACUTE MYOCARDIAL INFARCTION TISSUE HEART VALVES VALVULAR HEART DISEASE ATRIAL FIBRILLATION RECURRENT SYSTEMIC EMBOLISM MECHANICAL HEART VALVE 2.5-3.5 FROM: ORAL ANTICOAGULANTS. MECHANISM OF ACTION, CLINICAL EFFECTIVENESS, AND OPTIMAL THERAPEUTIC RANGE. CHEST 1995;108:231S-246S.Performed By: #### [id number] #### [facility] [address] [place] [address], USAPT Coag (PPP) [Time]17.2 sHigh12.3-14.8The [facility] YoungstownComment on above:Order Comment: Yes: Add to Previous draw if ableResult Comment: ALL RESULTS MUST BE INTERPRETED WITH RESPECT TO BLOOD DRAWING ARTIFACT OR DILUTION ERROR OF ANTICOAGULANT AT THE TIME OF SAMPLING.Performed By: #### [id number] #### [facility] [address] [place] [address], USABASIC METABOLIC PANELon 95-43-9126Fajkcfb [Mass/Vol]7.9 mg/dLLow8.6-10.3The [facility] YoungstownComment on above:Order Comment: No: Do not add to previous drawPerformed By: #### 61220 ####[facility] [place] [address], USAChloride [Moles/Vol]101 mmol/MGeoofd83-763Fra [facility] YoungstownComment on above:Order Comment: No: Do not add to previous drawPerformed By: #### [id number] ####[facility] [facility] [place] [address], [place] CO2 [Moles/Vol]28 mmol/ZNwacvk08-25Xkj [facility] Comment on above:Order Comment: No: Do not add to previous drawPerformed By: #### 29672 ####[facility] [place] [address], USACreatinine [Mass/Vol]0.73 mg/dLNormal0.60-1.20The [facility] YoungstownComment on above:Order Comment: No: Do not add to previous draw Performed By: #### 10614 ####[facility] [place] [address], USAGFR/1.73 sq M predicted among blacks MDRD (S/P/Bld) [Vol rate/Area]mL/min/{1.73_m2}Normal>60The [facility] Comment on above:Order Comment: No: Do not add to previous drawPerformed By: #### 45474 ####[facility] [place] [address], USAGFR/1.73 sq M predicted among non-blacks MDRD (S/P/Bld) [Vol rate/Area]mL/min/{1.73_m2}Normal>60The [facility] Comment on above:Order Comment: No: Do not add to previous drawPerformed By: #### 46102 ####[facility] [place] [address], USAGlucose [Mass/Vol]103 mg/fBQhzo55-582Rxe [facility] YoungstownComment on above:Order Comment: No: Do not add to previous drawPerformed By: #### 90858 ####[facility] [place] [address], USAPotassium [Moles/Vol]3.9 mmol/LNormal3.5-5.1The [facility] YoungstownComment on above:Order Comment: No: Do not add to previous drawPerformed By: #### 53985 ####[facility] [place] [address], USASodium [Moles/Vol]136 mmol/OLmfill522-823Wnj [facility] YoungstownComment on above:Order Comment: No: Do not add to previous drawPerformed By: #### 57495 ####[facility] [place] [address], USAUrea nitrogen [Mass/Vol]18 mg/dL Normal7-25The [facility] YoungstownComment on above:Order Comment: No: Do not add to previous drawPerformed By: #### 48259 ####[facility] [place] [address], USACBC COMPLETE BLOOD COUNTon 13-17-8857Ffxckftfnsn distribution width (RBC) [Ratio]13.9 %Normal 11.5-15.0The [facility] YoungstownComment on above:Order Comment: Yes: Add to Previous draw if ablePerformed By: #### [id number] #### [facility] [address] [place] [address], USAHematocrit (Bld) [Volume fraction]35.9 %Low36.0-45.0The [facility] YoungstownComment on above:Order Comment: Yes: Add to Previous draw if ablePerformed By: #### 91685 #### [facility] [address] [place] [address], USAHemoglobin (Bld) [Mass/Vol]11.1 g/dLLow12.0-15.0The [facility] YoungstownComment on above:Order Comment: Yes: Add to Previous draw if ablePerformed By: #### 40322 #### [facility] [address] [place] [address], [facility] (RBC) [Entitic mass]27.5 xkVyhjnp53.0-33.0The [facility] YoungstownComment on above:Order Comment: Yes: Add to Previous draw if ablePerformed By: #### 39000 #### [facility] [address] [place] [address], [facility] SERVICESMCHC (RBC) [Mass/Vol]30.9 g/dLLow32.0-35.0The [facility] YoungstownComment on above:Order Comment: Yes: Add to Previous draw if ablePerformed By: #### 80174 #### [facility] [address] [place] [address], [facility] SERVICESMCV (RBC) [Entitic vol]88.9 oTYhpolx27.0-98.0The [facility] - YoungstownComment on above:Order Comment: Yes: Add to Previous draw if ablePerformed By: #### [id number] #### [facility] [address] [place] [address], USANucleated RBC/100 WBC (Bld) [Ratio]0 %Normal0-0The [facility] - YoungstownComment on above:Order Comment: Yes: Add to Previous draw if ablePerformed By: #### [id number] #### [facility] [address] [place] [address], USAPLAT CED873 10*3/kQBzrkuw671-703Pez [facility] YoungstownComment on above:Order Comment: Yes: Add to Previous draw if able Performed By: #### 25651 #### [facility] [address] [place] [address], USARBC (Bld) [#/Vol]4.04 10*6/uLNormal3.80-5.00The [facility] YoungstownComment on above:Order Comment: Yes: Add to Previous draw if ablePerformed By: #### [id number] #### [facility] [address] [place] [address], USAWBC (Bld) [#/Vol]16.74 10*3/uLHigh4.00-10.60The [facility] YoungstownComment on above:Order Comment: Yes: Add to Previous draw if ablePerformed By: #### 73551 #### [facility] [address] [place] [address], USAHISTOPLASMA AG URINE [id number] AG EIA, URINENot DetectedNormalThe [facility] YoungstownComment on above:Order Comment: No: Do not add to previous drawHISTOPLASMA AG, URINENot DetectedNormalNot DetectedThe [facility] YoungstownComment on above:Order Comment: No: Do not add to previous drawResult Comment: INTERPRETIVE DATA: Histoplasma Galactomannan Antigen Quantitative by EIA, [...] histoplasmosis. Test developed and characteristics determined by [facility]. See Compliance Statement B: AFreeze/ Performed By: [facility] [address] [place] [address] Flight Software Test Engineer: ARTURO PriceOC GLUCOSE LABon [id number] [Mass/Vol]95 mg/nZJpnaqc37-970Zgj [facility] YoungstownComment on above:Performed By: #### [id number] #### [facility] [address] [facility] [place] [address], [facility] SERVICESASPERGILLUS GALACTOMANNAN [id number] GALACTOMANNAN ANTIGEN, SERUMNegativeNormalNegativeThe [facility] - YoungstownComment on above:Order Comment: Yes: Add to Previous draw if able Result Comment: INTERPRETIVE INFORMATION: Aspergillus Galactomannan Antigen by EIA Negative results do not exclude the diagnosis of invasive aspergillosis. A single positive test result (index equal to or greater than 0.5) should be clinically correlated by testing a separate serum specimen because many agents (e.g. foods, antibiotics) may cross-react with the test. If invasive aspergillosis is suspected in high-risk patients, serial sampling is recommended. Performed By: [facility] [address] [place] [address] Flight Software Test Engineer: Eliane Mendoza MDASPERGILLUS GALACTOMANNAN [id number] The [facility] - YoungstownComment on above:Order Comment: Yes: Add to Previous draw if ableBASIC METABOLIC PANELon 88-12-1566Upopprt [Mass/Vol]7.6 mg/dLLow8.6-10.3The [facility] YoungstownComment on above:Order Comment: No: Do not add to previous drawPerformed By: #### [id number] ####[facility] [place] [address], USAChloride [Moles/Vol]102 mmol/JChjreb15-190Klu [facility] YoungstownComment on above:Order Comment: No: Do not add to previous drawPerformed By: #### 80726 ####[facility] [place] [address], [place] CO2 [Moles/Vol]27 mmol/DMtbacl09-08Atd [facility] [place] Comment on above:Order Comment: No: Do not add to previous drawPerformed By: #### 66938 ####[facility] [place] [address], USACreatinine [Mass/Vol]0.87 mg/dLNormal0.60-1.20The [facility] YoungstownComment on above:Order Comment: No: Do not add to previous draw Performed By: #### [id number] ####[facility] [place] [address], USAGFR/1.73 sq M predicted among blacks MDRD (S/P/Bld) [Vol rate/Area]mL/min/{1.73_m2}Normal>60The [facility] [place] Comment on above:Order Comment: No: Do not add to previous drawPerformed By: #### 01991 ####[facility] [facility] [address], USAGFR/1.73 sq M predicted among non-blacks MDRD (S/P/Bld) [Vol rate/Area]mL/min/{1.73_m2}Normal>60The [facility] Comment on above:Order Comment: No: Do not add to previous drawPerformed By: #### 01239 ####[facility] [place] [address], USAGlucose [Mass/Vol]129 mg/hUIwhv65-873Qwf [facility] YoungstownComment on above:Order Comment: No: Do not add to previous drawPerformed By: #### 80049 ####[facility] [place] [address], USAPotassium [Moles/Vol]3.8 mmol/LNormal3.5-5.1The [facility] YoungstownComment on above:Order Comment: No: Do not add to previous drawPerformed By: #### 13027 ####[facility] [place] [address], USASodium [Moles/Vol]136 mmol/EIbnsfs998-275Bjm [facility] [place]stownComment on above:Order Comment: No: Do not add to previous drawPerformed By: #### [id number] ####[facility] [place] [address], USAUrea nitrogen [Mass/Vol]23 mg/dL Normal7-25The [facility] YoungstownComment on above:Order Comment: No: Do not add to previous drawPerformed By: #### 62559 ####[facility] [facility] [address], USACBC COMPLETE BLOOD COUNTon 15-74-8538Qtdehrjbecu distribution width (RBC) [Ratio]13.8 %Normal 11.5-15.0The [facility] YoungstownComment on above:Order Comment: Yes: Add to Previous draw if ablePerformed By: #### [id number] #### [facility] [address] [place] [address], USAHematocrit (Bld) [Volume fraction]35.5 %Low36.0-45.0The [facility] YoungstownComment on above:Order Comment: Yes: Add to Previous draw if ablePerformed By: #### 92718 #### [facility] [address] [place] [address], USAHemoglobin (Bld) [Mass/Vol]11.1 g/dLLow12.0-15.0The [facility] YoungstownComment on above:Order Comment: Yes: Add to Previous draw if ablePerformed By: #### 99556 #### [facility] [address] [place] [address], [facility]OREH (RBC) [Entitic mass]28.0 ihJpttnn36.0-33.0The [facility] YoungstownComment on above:Order Comment: Yes: Add to Previous draw if ablePerformed By: #### 93692 #### [facility] [address] [place] [address], [facility]HC (RBC) [Mass/Vol]31.3 g/dLLow32.0-35.0The [facility] YoungstownComment on above:Order Comment: Yes: Add to Previous draw if ablePerformed By: #### 65569 #### [facility] [address] [facility] [place] [address], [facility]EV (RBC) [Entitic vol]89.4 pBMljcqw49.0-98.0The [facility] YoungstownComment on above:Order Comment: Yes: Add to Previous draw if ablePerformed By: #### 37718 #### [facility] [address] [facility] [place] [address], USANucleated RBC/100 WBC (Bld) [Ratio]0 %Normal0-0The [facility] YoungstownComment on above:Order Comment: Yes: Add to Previous draw if ablePerformed By: #### [id number] #### [facility] [address] [facility] [address], USAPLAT RTG089 10*3/qLCqseyv362-431Xwu [facility] YoungstownComment on above:Order Comment: Yes: Add to Previous draw if able Performed By: #### 99236 #### [facility] [address] [place] [address], [facility] CARE SERVICESRBC (Bld) [#/Vol]3.97 10*6/uLNormal3.80-5.00The [facility] CenterComment on above:Order Comment: Yes: Add to Previous draw if ablePerformed By: #### 30698 #### [facility] [address] [place] [address], USAWBC (Bld) [#/Vol]19.28 10*3/uLHigh4.00-10.60The [facility] YoungstownComment on above:Order Comment: Yes: Add to Previous draw if ablePerformed By: #### 87765 #### [facility] [address] [place] [address], USAFUNGITELL (1,8-FAEA-R-GLUCAN)on 26-45-0224MEFDXAOXS (1,3 QUEE-X-BYRIQK)<31NormalThe [facility] YoungstownComment on above: Order Comment: Yes: Add to Previous draw if ableFUNGITELL INTERPRETATIONNegative NormalNegativeThe [facility] YoungstownComment on above:Order Comment: Yes: Add to Previous draw if ableResult Comment: INTERPRETIVE INFORMATION: (1,3)-qbzq-P-fzewmo (Fungitell) Less than 31 pg/mL ................... Negative 31-59 pg/mL .......................... Negative 60-79 pg/mL .......................... Indeterminate Greater than or equal to 80 pg/mL .... Positive The Fungitell test is indicated for presumptive diagnosis of fungal infection and should be used in conjunction with other diagnostic procedures. This test does not detect certain fungal species such as Cryptococcus, which produce very low levels of (1,3)-ozuk-K-ulwook. This test will not detect the zygomycetes, such as Absidia, Mucor, and Rhizopus, which are not known to produce (1,3)-cwtg-J-ghgwxt. In addition, the yeast phase of Blastomyces dermatitidis produces little (1,3)-wsxf-K-jgrecs and may not be detected by the assay. Performed By: [facility] [address] [place] [address] Flight Software Test Engineer: YESICA Price QUANTIFERON PLUSon 31-22-2322UVLOOIY MINUS NIL>10.00NormalThe [facility] YoungstownComment on above: Order Comment: Yes: Add to Previous draw if ablePerformed By: #### [id number] #### [facility] [address] [facility] [place] [address], USANIL0.09 IU/mLNormalThe [facility] Comment on above:Order Comment: Yes: Add to Previous draw if ablePerformed By: #### 48050 #### [facility] [address] [place] [address], USATB QUANTIFERONNegativeNormalNEGATIVEThe [facility] YoungstownComment on above:Order Comment: Yes: Add to Previous draw if ableResult Comment: Quantiferon TB Gold Interpretation (IU/mL): NEGATIVE: M. tuberculosis infection not likely. Nil: <=8.0 TB1 Antigen minus Nil (OQ9WC-LCC): <0.35 OR >=0.35; and <25% of Nil value. TB2 Antigen minus Nil (BI3QN-PIT): <0.35 OR >=0.35; and <25% of Nil value. Mitogen minus Nil (GAMA-NIL): >=0.50 NOTE: Diagnosing or excluding tuberculosis disease, and assessing the probability of LTBI, requires a combination of epidemiological, historical, medical, and diagnostic findings that should be taken into account when interpreting QuantiFERON (TM)-TB Gold results. See general guidance on the diagnosis and treatment of TB disease and LTBI (https://www.cdc.gov/tb/publications/guidlines/default.htmPerformed By: #### 96391 #### [facility] [address] [place] [address], USATB1 AG0.08 IU/mLNormalKettering Health PrebleComment on above:Order Comment: Yes: Add to Previous draw if ablePerformed By: #### 72279 #### [facility] [address] [place] [address], USATB1 AG MINUS NIL-0.01 IU/mLNormalThe [facility] [place]stownComment on above:Order Comment: Yes: Add to Previous draw if able Performed By: #### 69243 #### [facility] [address] [place] [address], USATB2 AG0.08 IU/mLNormalThe [facility] [place]stownComment on above:Order Comment: Yes: Add to Previous draw if ablePerformed By: #### 03364 #### [facility] [address] [place] [address], USATB2 AG MINUS NIL-0.01 IU/mLNormalThe [facility] [place]stownComment on above:Order Comment: Yes: Add to Previous draw if able Performed By: #### 68453 #### [facility] [address]*SARS-CoV-2 COVID-19on 70-79-1992GONK-COVID-19Not Detected NormalNot DetectedThe [facility] YoungstownComment on above:Order Comment: No collection time noted on specimen or requisition. The collection time recorded is the time of receipt in the lab. The Aptima SARS-CoV-2 assay is a nucleic acid amplification test intended for the qualitative detection of RNA from SARS-CoV-2 isolated and purified from nasopharyngeal (SENIOR RESIDENT CARE DIRECTOR),oropharyngeal (OP), nasal swab, sputum, and bronchoalveolar lavage (BAL) specimens from patients with signs and symptoms of infection who are suspected of COVID-19. Results are for the identification of SARS-CoV-2 RNA. The SARS-CoV-2 RNA is generally detectable during the acute phase of infection. The Aptima SARS-CoV-2 Assay on the [employer] system is intended for use by laboratory personnel specifically instructed and trained in the operation of the [employer] system. The Aptima SARS-CoV-2 assay is [...] with clinical observations, patient history, and epidemiological information.Performed By: #### [id number] #### [facility] [address] [place] [address], USABASIC METABOLIC PANELon [id number] [Mass/Vol]7.6 mg/dLLow8.6-10.3The [facility] YoungstownComment on above:Order Comment: No: Do not add to previous drawPerformed By: #### 26859, 25067, 42584 ####[facility] [place] [address], [place] Chloride [Moles/Vol]103 mmol/UAdioql98-236Guk [facility] YoungstownComment on above:Order Comment: No: Do not add to previous drawPerformed By: #### 34831, 44309, 47569 ####[facility] [place] [address], USACO2 [Moles/Vol]27 mmol/QDbtuwa90-18Pbo [facility] YoungstownComment on above:Order Comment: No: Do not add to previous drawPerformed By: #### 47593, 33170, 58359 ####[facility] [place] [address], USACreatinine [Mass/Vol]0.85 mg/dLNormal0.60-1.20The [facility] Comment on above:Order Comment: No: Do not add to previous drawPerformed By: #### 71655, 66974, 50510 ####[facility] [place] [address], USAGFR/1.73 sq M predicted among blacks MDRD (S/P/Bld) [Vol rate/Area]mL/min/{1.73_m2}Normal>60The [facility] Comment on above:Order Comment: No: Do not add to previous drawPerformed By: #### 00784, 66351, 02860 ####[facility] [place] [address], USAGFR/1.73 sq M predicted among non-blacks MDRD (S/P/Bld) [Vol rate/Area]mL/min/{1.73_m2}Normal>60The [facility] Comment on above:Order Comment: No: Do not add to previous drawPerformed By: #### 87819, 52118, 41526 ####[facility] [place] [address], USAGlucose [Mass/Vol]132 mg/zHMdjc35-584Bin [facility] YoungstownComment on above:Order Comment: No: Do not add to previous drawPerformed By: #### 30085, 37976, 13397 ####[facility] [place] [address], USAPotassium [Moles/Vol]3.9 mmol/L Normal3.5-5.1The [facility] YoungstownComment on above:Order Comment: No: Do not add to previous drawPerformed By: #### 21576, 87534, 15315 ####[facility] [place] [address], [place] Sodium [Moles/Vol]138 mmol/MKstrve198-760Lrc [facility] Comment on above:Order Comment: No: Do not add to previous drawPerformed By: #### 28459, 04373, 60426 ####[facility] [place] [address], USAUrea nitrogen [Mass/Vol]19 mg/dLNormal7-25The [facility] YoungstownComment on above:Order Comment: No: Do not add to previous drawPerformed By: #### 81908, 14118, 12623 ####[facility] [place] [address], USAC REACTIVE PROTEIN on 48-17-5848DKN [Mass/Vol]287.0 mg/LHigh0.0-7.0The [facility] YoungstownComment on above:Order Comment: Yes: Add to Previous draw if able Performed By: #### 63716 ####[facility] [place] [address], USACBC W/DIFFon 45-45-5103GVW BASOPHILS0.1 10*3/uLNormal 0.0-0.2The [facility] YoungstownComment on above:Order Comment: Yes: Add to Previous draw if ablePerformed By: #### 32815 #### [facility] [address] [facility] [place] [address], USAABS IMM GRANS0.1 10*3/uLNormal0.0-0.2The [facility] YoungstownComment on above:Order Comment: Yes: Add to Previous draw if ablePerformed By: #### 45301 #### [facility] [address] [place] [address], USAABS WKTDQUWGLSO22.1 10*3/uLHigh1.6-7.6The [facility] YoungstownComment on above:Order Comment: Yes: Add to Previous draw if ablePerformed By: #### 58750 #### [facility] [address] [facility] [place] [address], USABasophils/100 WBC (Bld)0.2 %Normal0.0-1.0The [facility] YoungstownComment on above:Order Comment: Yes: Add to Previous draw if ablePerformed By: #### 67599 #### [facility] [address] [facility] [place] [address], USAEosinophils (Bld) [#/Vol]0.1 10*3/uLNormal0.0-0.5The [facility]stownComment on above:Order Comment: Yes: Add to Previous draw if ablePerformed By: #### 37545 #### [facility] [address] [place] [address], USAEosinophils/100 WBC (Bld)0.4 %Normal0.0-6.0The [facility] YoungstownComment on above:Order Comment: Yes: Add to Previous draw if ablePerformed By: #### 17247 #### [facility] [address] [place] [address], USAErythrocyte distribution width (RBC) [Ratio]13.8 %Normal 11.5-15.0The [facility] YoungstownComment on above:Order Comment: Yes: Add to Previous draw if ablePerformed By: #### 03288 #### [facility] [address] [place] [address], USAHematocrit (Bld) [Volume fraction]38.9 %Rvvctk77.0-45.0The [facility] YoungstownComment on above:Order Comment: Yes: Add to Previous draw if ablePerformed By: #### 28593 #### [facility] [address] [place] [address], USAHemoglobin (Bld) [Mass/Vol]12.0 g/mYEeawlo04.0-15.0The [facility] YoungstownComment on above:Order Comment: Yes: Add to Previous draw if ablePerformed By: #### 86513 #### [facility] [address] [facility] [place] [address], USAIMMATURE GRANS0.6 %Normal0.0-1.0The [facility] YoungstownComment on above:Order Comment: Yes: Add to Previous draw if able Performed By: #### 15126 #### [facility] [address] [facility] [place] [address], USALymphocytes (Bld) [#/Vol]0.7 10*3/uLLow1.2-4.0The [facility] YoungstownComment on above:Order Comment: Yes: Add to Previous draw if ablePerformed By: #### 03130 #### [facility] [address] [place] [address], [facility]ARE SERVICESLymphocytes/100 WBC (Bld)3.2 %Low20.0-45.0The [facility] YoungstownComment on above:Order Comment: Yes: Add to Previous draw if ablePerformed By: #### 63389 #### [facility] [address] [place] [address], [facility] (RBC) [Entitic mass]27.4 uvMfwocx50.0-33.0The [facility] YoungstownComment on above:Order Comment: Yes: Add to Previous draw if ablePerformed By: #### 01881 #### [facility] [address] [place] [address], [facility] SERVICESMCHC (RBC) [Mass/Vol]30.8 g/dLLow32.0-35.0The [facility] YoungstownComment on above:Order Comment: Yes: Add to Previous draw if ablePerformed By: #### 88426 #### [facility] [address] [place] [address], [facility] (RBC) [Entitic vol]88.8 bOOccgwd53.0-98.0The [facility] YoungstownComment on above:Order Comment: Yes: Add to Previous draw if ablePerformed By: #### 79141 #### [facility] [address] [place] [address], USAMonocytes (Bld) [#/Vol]0.8 10*3/uLNormal0.1-1.0The [facility]stownComment on above:Order Comment: Yes: Add to Previous draw if ablePerformed By: #### 61889 #### [facility] [address] [place] [address], USAMONOS3.9 %Low5.0-12.0The [facility] YoungstownComment on above:Order Comment: Yes: Add to Previous draw if ablePerformed By: #### 52125 #### [facility] [address] [place] [address], USANeutrophils/100 WBC (Bld)91.7 %High40.0-72.0The [facility] YoungstownComment on above:Order Comment: Yes: Add to Previous draw if ablePerformed By: #### 72105 #### [facility] [address] [place] [address], USANucleated RBC/100 WBC (Bld) [Ratio]0 %Normal0-0The [facility] YoungstownComment on above:Order Comment: Yes: Add to Previous draw if ablePerformed By: #### 13309 #### [facility] [address] [place] [address], USAPLAT [id number] 10*3/oWKyhbiy405-290Fwa [facility] YoungstownComment on above:Order Comment: Yes: Add to Previous draw if able Performed By: #### 00093 #### [facility] [address] [facility] [address], USARBC (Bld) [#/Vol]4.38 10*6/uLNormal3.80-5.00The [facility]stownComment on above:Order Comment: Yes: Add to Previous draw if ablePerformed By: #### 46941 #### [facility] [address] [facility] [place] [address], USAWBC (Bld) [#/Vol]20.78 10*3/uLHigh4.00-10.60The [facility]stownComment on above:Order Comment: Yes: Add to Previous draw if ablePerformed By: #### 30365 #### [facility] [address] [place] [address], [place] [address]yv 71-77-6735KECEQE CIT UFI321 UnitsHigh0-19The [facility] YoungstownComment on above: Order Comment: Yes: Add to Previous draw if ableResult Comment: INTERPRETIVE INFORMATION: Cyclic Citrullinated Peptide Antibody, IgG 19 [...] be monitored and testing repeated. Performed By: [facility] [address] [place] [address] Flight Software Test Engineer: Eliane Mendoza, MDMAGNESIUM BLOODon [id number] [Mass/Vol]1.7 mg/dLLow1.9-2.7The [facility] YoungstownComment on above:Order Comment: Yes: Add to Previous draw if ablePerformed By: #### 35709 #### [facility] [address] [facility] [place] [address], [facility] SERVICESPHOSPHORUS BLOODon 92-29-8597Cpegquyqz [Mass/Vol]2.7 mg/dL Normal2.5-5.0The [facility] YoungstownComment on above:Performed By: #### 50722, 77677, 57256 ####[facility] [place] [address], [facility] SERVICESPROTHROMBIN TIMEon 55-36-7044AMT Coag (PPP) [Relative time]1.50 {INR}High0.91-1.16The [facility] Comment on above:Order Comment: Yes: Add to Previous draw if ableResult Comment: ACCCP RECOMMENDED INR FOR WARFARIN THERAPY ------- CONDITION INR PROPHYLAXIS OF VENOUS THROMBOSIS 2-3 (HIGH-RISK SURGERY) TREATMENT OF VENOUS THROMBOSIS 2-3 TREATMENT OF PULMONARY EMBOLISM 2-3 PREVENTION OF SYSTEMIC EMBOLISM: 2-3 ACUTE MYOCARDIAL INFARCTION TISSUE HEART VALVES VALVULAR HEART DISEASE ATRIAL FIBRILLATION RECURRENT SYSTEMIC EMBOLISM MECHANICAL HEART VALVE 2.5-3.5 FROM: ORAL ANTICOAGULANTS. MECHANISM OF ACTION, CLINICAL EFFECTIVENESS, AND OPTIMAL THERAPEUTIC RANGE. CHEST 1995;108:231S-246S.Performed By: #### 34471 ####[facility] [address], USAPT Coag (PPP) [Time]18.1 sHigh 12.3-14.8The [facility] YoungstownComment on above:Order Comment: Yes: Add to Previous draw if ableResult Comment: ALL RESULTS MUST BE INTERPRETED WITH RESPECT TO BLOOD DRAWING ARTIFACT OR DILUTION ERROR OF ANTICOAGULANT AT THE TIME OF SAMPLING.Performed By: #### 57168 ####[facility] [place] [address], USARHEUMATOID FACTOR SERUMon 47-82-5214GB48 IU/mLHigh0-e [facility] YoungstownComment on above:Order Comment: Yes: Add to Previous draw if ablePerformed By: #### 64565 #### [facility] [address] [place] [address], USASEDIMENTATION RATEon 70-73-0251UBR RATE41 mm/hrHigh0-e [facility] YoungstownComment on above:Order Comment: Yes: Add to Previous draw if ablePerformed By: #### 91353 #### [facility] [address] [place] [address], USATROPONIN-Ion 75-75-2778Crkekvqd I.cardiac [Mass/Vol]0.01 ng/mLNormal0.00-0.04The [facility] YoungstownComment on above: Order Comment: Yes: Add to Previous draw if ableResult Comment: REFERENCE RANGES: 0.00 - 0.04 ng/ml NORMAL 0.05 - 0.50 ng/ml INDETERMINATE > 0.50 ng/ml CONSISTENT WITH AN M.I.Performed By: #### 62714 ####[facility] [facility] [place] [address], USALACTATE WITH REFLEX on 67-05-0004Eahecmz [Moles/Vol]0.9 mmol/LNormal0.5-2.2The [facility] YoungstownComment on above:Performed By: #### [id number] ####[facility].[address]*BLOOD CULTUREon 64-99-5701Jnsnrkut identified Cx Nom (Bld)Clinical Report: (D) Specimen: BLOOD CULTURE Collected: 07/31/2020 17:20 Status: Final Last Updated: 08/06/2020 15:38 (1) Prior to antibiotic administration LAC CULT RES (Final) No Growth Day 5[facility] GeneralComment on above: Order Comment: Prior to antibiotic administration LACPerformed By: #### [id number] #### [facility] [address] [facility] [place] [address], USABacteria identified Cx Nom (Bld)Clinical Report: (D) Specimen: BLOOD CULTURE Collected: 07/31/2020 16:20 Status: Final Last Updated: 08/06/2020 15:38 (1) Prior to antibiotic administration RFA CULT RES (Final) No Growth Day 5NoPremier Health [facility] SouthComment on above: Order Comment: Yes: Add to Previous draw if ablePerformed By: #### 65312 ####[facility] [place] [address], [facility] BASIC METABOLIC PANELon 21-93-6374Lllnxvx [Mass/Vol]7.7 mg/dLLow8.6-10.3The [facility] YoungstownComment on above:Order Comment: Fluid CollectionPerformed By: #### 55480, 78673, 54236 ####[facility] [place] [address], USAChloride [Moles/Vol]104 mmol/LZqypzm29-461Uic [facility] YoungstownComment on above:Order Comment: Fluid CollectionPerformed By: #### 61795, 56672, 65393 ####[facility] [place] [address], USACO2 [Moles/Vol] 25 mmol/RZotpml29-21Rav [facility] YoungstownComment on above: Order Comment: Fluid CollectionPerformed By: #### 59819, 83782, 22423 ####[facility] [place] [address], [place] Creatinine [Mass/Vol]0.82 mg/dLNormal0.60-1.20The [facility] YoungstownComment on above:Order Comment: Fluid CollectionPerformed By: #### 87349, 36251, 01020 ####[facility] [place] [address], USAGFR/1.73 sq M predicted among blacks MDRD (S/P/Bld) [Vol rate/Area] mL/min/{1.73_m2}Normal>60The [facility] YoungstownComment on above:Order Comment: Fluid CollectionPerformed By: #### 68509, 15010, 08262 ####[facility] [facility] [address], [place] GFR/1.73 sq M predicted among non-blacks MDRD (S/P/Bld) [Vol rate/Area] mL/min/{1.73_m2}Normal>60The [facility]stownComment on above:Order Comment: Fluid CollectionPerformed By: #### 85716, 59553, 77322 ####[facility] [place] [address], [place] Glucose [Mass/Vol]159 mg/sGIals82-707Wmv [facility] Comment on above:Order Comment: Fluid CollectionPerformed By: #### 13317, 41486, 02003 ####[facility] [place] [address], USAPotassium [Moles/Vol]4.4 mmol/LNormal3.5-5.1The [facility] YoungstownComment on above:Order Comment: Fluid CollectionPerformed By: #### 40780, 39403, 75616 ####[facility] [facility] [place] [address], USASodium [Moles/Vol]138 mmol/OElksdu844-231Dli [facility] YoungstownComment on above:Order Comment: Fluid Collection Performed By: #### 78737, 88814, 24229 ####[facility] [place] [address], USAUrea nitrogen [Mass/Vol]20 mg/dL Normal7-25The [facility] YoungstownComment on above:Order Comment: Fluid CollectionPerformed By: #### 49306, 72700, 88931 ####[facility] [facility] [address], [facility] SERVICESCBC W/DIFFon 07-31-2020 ABS BASOPHILS0.0 10*3/uLNormal0.0-0.2The [facility] Comment on above:Order Comment: Yes: Add to Previous draw if ablePerformed By: #### 16912 #### [facility] [address] [facility] [place] [address], USAABS IMM GRANS0.1 10*3/uLNormal0.0-0.2The [facility] YoungstownComment on above:Order Comment: Yes: Add to Previous draw if ablePerformed By: #### 26813 #### [facility] [address] [facility] [place] [address], USAABS SNNRBFWJGLG74.2 10*3/uLHigh1.6-7.6The [facility] YoungstownComment on above:Order Comment: Yes: Add to Previous draw if ablePerformed By: #### 51938 #### [facility] [address] [place] [address], USABasophils/100 WBC (Bld)0.2 %Normal0.0-1.0The [facility] YoungstownComment on above:Order Comment: Yes: Add to Previous draw if ablePerformed By: #### 13657 #### [facility] [address] [facility] [place] [address], USAEosinophils (Bld) [#/Vol]0.0 10*3/uLNormal0.0-0.5The [facility]stownComment on above:Order Comment: Yes: Add to Previous draw if ablePerformed By: #### 75023 #### [facility] [address] [facility] [place] [address], USAEosinophils/100 WBC (Bld)0.0 %Normal0.0-6.0The [facility] YoungstownComment on above:Order Comment: Yes: Add to Previous draw if ablePerformed By: #### 46829 #### [facility] [address] [facility] [place] [address], USAErythrocyte distribution width (RBC) [Ratio]13.5 %Normal 11.5-15.0The [facility] YoungstownComment on above:Order Comment: Yes: Add to Previous draw if ablePerformed By: #### 95711 #### [facility] [address] [facility] [place] [address], USAHematocrit (Bld) [Volume fraction]40.4 %Ajxduo83.0-45.0The [facility] YoungstownComment on above:Order Comment: Yes: Add to Previous draw if ablePerformed By: #### 95880 #### [facility] [address] [place] [address], USAHemoglobin (Bld) [Mass/Vol]12.9 g/pMDzcpip14.0-15.0The [facility] YoungstownComment on above:Order Comment: Yes: Add to Previous draw if ablePerformed By: #### 56564 #### [facility] [address] [place] [address], USAIMMATURE GRANS0.4 %Normal0.0-1.0The [facility] YoungstownComment on above:Order Comment: Yes: Add to Previous draw if able Performed By: #### 29832 #### [facility] [address] [place] [address], USALymphocytes (Bld) [#/Vol]0.8 10*3/uLLow1.2-4.0The [facility] YoungstownComment on above:Order Comment: Yes: Add to Previous draw if ablePerformed By: #### 49065 #### [facility] [address] [place] [address], USALymphocytes/100 WBC (Bld)4.7 %Low20.0-45.0The [facility] YoungstownComment on above:Order Comment: Yes: Add to Previous draw if ablePerformed By: #### 05315 #### [facility] [address] [place] [address], [facility] SERVICESMCH (RBC) [Entitic mass]28.0 prWbshov25.0-33.0The [facility] YoungstownComment on above:Order Comment: Yes: Add to Previous draw if ablePerformed By: #### 53014 #### [facility] [address] [place] [address], USAMCHC (RBC) [Mass/Vol]31.9 g/dLLow32.0-35.0The [facility] YoungstownComment on above:Order Comment: Yes: Add to Previous draw if ablePerformed By: #### 11111 #### [facility] [address] [place] [address], USAMCV (RBC) [Entitic vol]87.8 lJGkrbiu57.0-98.0The [facility]stownComment on above:Order Comment: Yes: Add to Previous draw if ablePerformed By: #### 94491 #### [facility] [address] [place] [address], USAMonocytes (Bld) [#/Vol]0.8 10*3/uLNormal0.1-1.0The [facility]stownComment on above:Order Comment: Yes: Add to Previous draw if ablePerformed By: #### 98333 #### [facility] [address] [place] [address], USAMONOS4.6 %Low5.0-12.0The [facility] YoungstownComment on above:Order Comment: Yes: Add to Previous draw if ablePerformed By: #### 37216 #### [facility] [address] [place] [address], USANeutrophils/100 WBC (Bld)90.1 %High40.0-72.0The [facility] YoungstownComment on above:Order Comment: Yes: Add to Previous draw if ablePerformed By: #### 23528 #### [facility] [address] [place] [address], USANucleated RBC/100 WBC (Bld) [Ratio]0 %Normal0-0The [facility] YoungstownComment on above:Order Comment: Yes: Add to Previous draw if ablePerformed By: #### 23911 #### [facility] [address] [place] [address], USAPLAT PEP467 10*3/uLNaooxm598-470Jru [facility] YoungstownComment on above:Order Comment: Yes: Add to Previous draw if able Performed By: #### 27239 #### [facility] [address] [facility] [place] [address], USARBC (Bld) [#/Vol]4.60 10*6/uLNormal3.80-5.00The [facility] YoungstownComment on above:Order Comment: Yes: Add to Previous draw if ablePerformed By: #### 39157 #### [facility] [address] [facility] [place] [address], USAWBC (Bld) [#/Vol]17.95 10*3/uLHigh4.00-10.60The [facility] YoungstownComment on above:Order Comment: Yes: Add to Previous draw if ablePerformed By: #### 42178 #### [facility] [address] [facility] [place] [address], USACT ABDOMEN AND PELVIS W IV AND ORAL CONTRASTon 39-73-5702LY ABDOMEN AND PELVIS W IV AND ORAL CONTRASTUnTogus VA Medical Center Department of Radiology [address] [place] [id number] Patient Name: JARETT KEBEDE : 1965 Sex: F Age: Race: White Pt. Location: [facility] Patient Status: I Ordered Date: 07/31/2020 6:10:00 PM Completed Date: 07/31/2020 07:47 PM Requesting Provider: PARDEEP MCBRIDE Attending Provider: GUSTABO GARCIA Report Copy To: Signs & Symptoms: Abscess History: See Comments Comments: Other, ruq abdominal pain, h/o ileocolonic anastomosis. Rule out anastomotic leak/fistulaand abcess Exam: CT ABDOMEN AND PELVIS W [...] infectious or neoplastic etiology. Electronically signed: Dereck Naik. Transcribed by: [email or web address], User Resident: DERECK NAIK Electronically Signed by: BOSSMANDOMI KENIA @ 07/31/2020 08:38 PM I personally read this/these film(s) with this residentCleveland Clinic Akron GeneralComment on above:Order Comment: Yes: Add to Previous draw if ableCT CHEST W CONTRASTon 87-51-0229SL CHEST W CONTRASTUnTogus VA Medical Center Department of Radiology [address] [place] [address] Patient Name: JARETT KEBEDE : 1965 Sex: F Age: Race: White Pt. Location: [facility] Patient Status: I Ordered Date: 07/31/2020 [...] with similar findings present and 2019 and 2016 exams. This is associated with multiple bilateral lower lobe pulmonary nodules. Findings could be sequelae of chronic infectious, inflammatory or neoplastic etiology. There is new cystic lesion at the right cardiophrenic angle which measures 5.2 cm. This could be sequelae of benign process like pericardial cyst or malignant process. There is no gross pathological mediastinal adenopathy by size criteria. Electronically signed: Dereck Naik. Transcribed by: [email or web address], User Resident: DERECK NAIK Electronically Signed by: DERECK NAIK @ 07/31/2020 08:21 PM I personally read this/these film(s) with this [facility] HospitalComment on above:Order Comment: Yes: Add to Previous draw if ableLIPASE BLOODon 11-93-1628Rlqwpu [Catalytic activity/Vol]U/ARvc01-15Wyn [facility] YoungstownComment on above:Order Comment: Fluid CollectionPerformed By: #### 39594, 49720, 01740 ####[facility] [place] [address], USALIVER BATTERYon 07-31-2020 Albumin [Mass/Vol]2.6 g/dLLow3.5-5.7The [facility] Comment on above:Order Comment: Fluid CollectionPerformed By: #### 42631, 01026, 36181 ####[facility] [place] [address], USAALKALINE ISATZI04 IU/WYmfkta87-758Wgv [facility] YoungstownComment on above:Order Comment: Fluid CollectionPerformed By: #### 84974, 67925, 46515 ####[facility] [place] [address], USAALT [Catalytic activity/Vol]13 U/LNormal7-52The [facility] YoungstownComment on above:Order Comment: Fluid CollectionPerformed By: #### 11704, 10114, 44946 ####[facility] [place] [address], USAAST [Catalytic activity/Vol]13 U/TFwhmeb80-13 The [facility] YoungstownComment on above:Order Comment: Fluid CollectionPerformed By: #### 89785, 47250, 16868 ####[facility] [place] [address], USABilirubin [Mass/Vol]0.6 mg/dLNormal0.3-1.0The [facility] YoungstownComment on above:Order Comment: Fluid CollectionPerformed By: #### 98987, 26711, 20227 ####[facility] [place] [address], USABilirubin.direct [Mass/Vol]0.1 mg/dLNormal0.0-0.2The [facility] YoungstownComment on above:Order Comment: Fluid CollectionPerformed By: #### 87153, 12845, 56372 ####[facility] [place] [address], [facility] Protein [Mass/Vol]6.0 g/dLNormal6.0-8.3The [facility] Comment on above:Order Comment: Fluid CollectionPerformed By: #### 63284, 76247, 48640 ####[facility] Vital Signs Date TimeVital SignValuePerforming EnvhjoyrjHzwnzesq08-72-0873 15:53-0400Blood Pressure LocationZakiya DAVISON [phone]-ChnqlAdena [facility] Center 02-413333-21121934-03-0661 15:53-0400Body insnznqhqbc55.52 [degF] Zakiya DAVISON [phone]-SpsevAdena Regional Medical Center 06-28-2022 15:53-0400Diastolic blood dqkjptit15 mm[Hg] Zakiya DAVISON [phone]-GmcycAdena Regional Medical Center 06-28-2022 15:53-0400Heart rate70 /minZakiya DAVISON [phone]-KxpgqAdena Regional Medical Center 06-28-2022 15:53-8858CiK1% (BldA) [Mass fraction]95 % Zakiya DAVISON [phone]-RyjbpAdena Regional Medical Center 06-28-2022 15:53-0400Systolic blood mm[Hg] Zakiya DAVISON [phone]-DtafeAdena Regional Medical Center 02-17-2022 15:15-0500Body wphintmaikw87 [degF]Albin Bruno Other [facility] uParts Other 02-17-2022 15:15-0500Diastolic blood dbhjiceu95 mm[Hg] Albin Bruno Other [facility] Other 02-17-2022 15:15-0500Systolic blood nriiuabs447 mm[Hg] Albin Bruno Other [facility] u[employer] Other Encounters Encounter DateEncounter TypeCare ProviderFacilityStart: 03-28-2025 End: 40-67-0122nskwzaeduaUAESZK HSUUniversity [facility] Hospitaltart: 03-28-2025 End: 68-53-0229wzwqnhjfmiDLWYTJ HSUUniversity [facility]val[facility] Hospitaltart: 03-18-2025 End: 16-72-7061cdmfdpvdfjElzr L SchwabFacility:FTMCStart: 03-18-2025 End: 43-77-4999wergyqvoviPliy L SchwabFacility:[facility] evueStart: 03-02-2025 End: 60-68-7859gegzbdjijjXcxw L SchwabFacility:[facility] BellevueStart: 11-25-2024 End: 51-60-4876vyocflegezIpyf L SchwabFacility:[facility] BellevueStart: 10-09-2024 End: 75-51-8100wsfyprgxddFTH Ann L SchwabFacility:[facility] BellevueStart: 10-01-2024 End: 25-06-6787Low Drop offJodi L Preethi [facility] Start: 10-01-2024 End: 86-20-5913bccyxqyjayRSF Ann L SchwabFacility:FTMCStart: 09-23-2024 End: 39-34-5223midzyeyirdCQY Ann L SchwabFacility:FT FM BellevueStart: 06-25-2024 End: 62-70-6011emnqovhnbpJdyu L ObermeyerFacility:[facility] Healthtart: 05-05-2024 End: 43-25-7949bvwzjwekwyZHV Ann L SchwabFacility:FT FM BellevueStart: 05-01-2024 End: 65-80-8075dgflnznjrjVQZ Ann L SchwabFacility:FT FM BellevueStart: 03-20-2024 End: 51-25-7089bqchyicxzsEeyg L [facility] Work Phone: Start: 03-20-2024 End: 14-89-1913Kxvenvg encounter procedureNP-C Ann Pride Work Phone: [facility] [address] Work Phone: Start: 02-14-2024 End: 70-99-7923ggxhfvhuozMMZ Ann L SchwabFacility:FT evueStart: 11-14-2023 End: 17-03-6817tplgavauttDDT Ann L SchwabFacility:FT BellevueStart: 11-12-2023 End: 79-39-5735kxcmltldjmLTY Ann L SchwabFacility:CD:[id number]: 11-08-2023 End: 82-99-1503zdvluoyecwDdqds D [facility] Work Phone: Start: 11-08-2023 End: 85-83-4942Igkhwyrm ReferredLAYTON [facility] Work Phone: [facility] Path Spec [facility] HospStart: 11-23-2022 End: 53-14-0939lkjpgdednyRB GREGORY S GRANTFacility:K1Zcrmo: 10-05-2022 End: 17-90-9320qfsoszbgquIN GREGORY S GRANTFacility:B2Uxxnw: 09-11-2022 End: 09-16-2030mlmbvyjxinKT ZAKYIA S GRANTFacility:I2Ngzcv: 08-17-2022 End: 90-23-7966rilmpafhdeOO MISCFacility:C6Eyykr: 08-14-2022 End: 75-95-2766aoffgbvhziLP ZAKIYA S GRANTFacility:F7Evhsy: 07-18-2022 End: 25-64-4214anxclyqfpmJC ZAKIYA S GRANTFacility:N3Wrivm: 06-05-2022 End: 31-40-4179ptcemyphdhEA ZAKIYA S GRANTFacility:E1Vsvpd: 05-22-2022 End: 80-41-7593jzylanydjfKP ZAKIYA S GRANTFacility:N3Qfvbn: 04-17-2022 End: 59-23-7695vcyzosqwtjBM ZAKIYA S GRANTFacility:D4Ezbir: 03-27-2022 End: 76-06-8340eearsxygvxYZ ZAKIYA S GRANTFacility:X0Gkkvc: 03-07-2022 End: 81-51-3022yslcylyvbzFD ZAKIYA S GRANTFacility:H9Iajzi: 02-09-2022 End: 95-82-1265sjcnblufezPI ZAKIYA S GRANTFacility:W8Azzvv: 02-02-2022 End: 70-30-5982vdagejviocPB ZAKIYA S GRANTFacility:J4Ocbvi: 01-12-2022 End: 16-12-8886Rseajid encounter procedureMD Shay Baldwin Work Phone: [facility] [address] RdStart: 01-10-2022 End: 44-34-0303Vwqsonj encounter procedureOrlandozainab S SAMAN [phone]-BjoirAdena Regional Medical Center Start: 12-26-2021 End: 98-32-4297Zoiaadg encounter procedureOrlandoory S SAMAN [phone]-ClfvpAdena Regional Medical Center Start: 12-07-2021 End: 19-75-9735avyofqqaiuNS GREGORY S GRANTFacility:V6Kufqk: 09-08-2021 End: 49-41-1854ekgmsqabinTkqjuua Blank Other [facility] uParts Other Start: 85-26-0620Hbsoxtyrg encounterMicluisito Arguelles Palliative CareStart: 09-01-2021 End: 44-56-1149hxxlzptbwtAmamrqv Blank Other [facility] uParts Other Start: 40-82-5346Vsgvzd outpatient new 45 minutes Albin Arguelles Infectious DiseaseStart: 07-31-2020 End: 72-01-8809Sebdqvdvmv and management of inpatientPRFacility:[facility] Procedures DateProcedureProcedure DetailPerforming ClinicianStart: 34-33-0558IVYPFXWK OF RETROPERITONEUM, PERCUTANEOUS APPROACH, DIAGNHAITHAM ELSAMALOTYStart: 07-16-2017 AppendectomyBridgettesandra Oro Start: 29-41-8629Taxaqih effusion (disorder)Ann Oro Start: 98-02-8233CrooeokzhsegOxgmfdn GRANT Colon part (body structure)Zakiya DAVISON Ileostomy operationZakiya DAVISON Jackson - Kay drain, device (physical object)Zakiya DAVISON Pyoderma (disorder)Ann Oro Comment on above:debrasions and draining.Surgical procedureAnn Oro Plan of Treatment DateCare ActivityDetailAuthorStart: 87-45-0841uoenajhxgtAdehcehqwvRkmvxmwe:FT BellevueStart: 20-28-2888culffxcupvSejkzdiodjGmlukucf:FT [place] Payers DatePayer CategoryPayerPolicy [id number] [id number] Health Insurance [id number]-yff [id number] 2.840.1.944340.3.579.[id number] 2.840.1.467125.3.579.[id number] 2.0.1.560679.3.57[id number] 2.840.1.960706.3.579.2.07140-42-4894Wxxpbwj9468603 2.0.1.457735.3.579.2.86797-65-1581Bjdaxey0217589 2.0.1.603648.3.57[id number] 2.0.1.367265.3.579.2.28071-88-0788Qdeoewe8898583 2.840.1.243643.3.579.2.07001-55-7995Duxwfvy6975860 2.840.1.725969.3.579.2.32161-85-3936Fugqvwd0455483 2.840.1.393432.3.579.2.03555-12-3839Nmstclc5890602 2.0.1.567998.3.579.[id number] 2.840.1.366373.3.579.2.27138-84-5624Uzrcgkj7731255 2.840.1.549248.3.579.2.75873-57-1617Iehlynq6983849 2.840.1.367497.3.579.2.11740-38-5261Geymoia6443147 2.840.1.034875.3.57[id number] 2.840.1.520956.3.579.2.69122-01-2553Wlbhgcc78250286 2.840.1.969816.3.579.[id number] 2.0.1.226954.3.579.2.07883-21-6961Cqdsypi03628402 2..1.726766.3.579.2.36706-05-3112Ewumflp61849665 2.0.1.712434.3.579.2.80306-71-2349Oiolbin73370363 2..1.551070.3.579.2.04529-69-5660Jtifyxp37377384 2..1.871497.3.579.2.28975-08-8001Zmxyicg81478171 2..1.790511.3.579.2.54432-83-3617Oopdbrq05845633 2..1.290145.3.579.2.66691-89-7887Pxwgkjs97607957 2..1.083601.3.579.2.76343-34-7281Nelqpez03184585 2.840.1.463453.3.579.2.39093-68-9058Ltucybk02770193 2.0.1.574586.3.579.2.76603-94-7132Nzryuah94842914 2.16.840.1.140280.3.579.2.49153-75-4154Rmidvqo77483092 2..840.1.285189.3.579.2.19818-93-2717Rqkfagg64596180 2.840.1.919640.3.579.2.85910-49-3278Lxrypcs86744539 2.840.1.949699.3.579.2.56966-96-3972Xhvkivk67283699 2.0.1.835901.3.579.2.07731-03-2082Daqhnte92043824 2.0.1.889006.3.579.2.66048-68-9797Urtbbwn31129198 2.0.1.668929.3.579.2.24460-02-3094Dbuvwgf57600503 2.0.1.641171.3.579.2.727 [id number] 1960Medicare [id number] [id number] [id number] 2.840.1.7[id number] 2.840.1.437246.3.579.2.531 [id number] 2.840.1.845734.3.579.2.531 Social History DateTypeDetailFacilityTobaccoUnknown if ever smokedNoEn[facility] [employer] Other Comment on above:deniesSex Assigned At BirthFeNovant [facility] [employer] Other Start: 11-27-2018 End: 58-20-1022Ygdjdzq smoking statusEx-smoker (finding)[facility] Tobacco [facility] statusNeverA[facility] Start: 81-38-0725Mxu Assigned At [facility] Start: 74-48-0046WztArknok (finding)[facility] Functional Status PtxlThaosdchgaHjgtdxJipgoofh18-21-5463Beyefwykpe StatusN/AFisherRaritan [facility] Clinical Notes 09-01-2021 to 03-18-2025 Note Date & InjgPonlYmwbrlrl93-07-9554 NotePatient Education Emergency Medicine Heart Attack A heart attack occurs when blood and oxygen supply to the heart is cut off. A heart attack can cause damage to the heart that cannot be fixed. A heart attack is also called a myocardial infarction, or PR. If you think you are having a heart attack, do not wait to see if the symptoms will go away. Get medical help right away. What are the causes? This condition may be caused by: ??? A fatty substance (plaque) in the blood vessels (arteries). This can block the flow of blood tothe heart. ??? A blood clot in the blood vessels that go to the heart. The blood clot blocks blood flow. ??? An abnormal heartbeat. ??? Some diseases, such as problems in red blood cells (anemia)orproblems in breathing (respiratoryfailure). ??? Tightening (spasm) of a blood vessel that cuts off blood to the heart. ??? A tear in a blood vessel of the heart. Other causes may include: ??? Using drugs such as cocaine or methamphetamine. ??? Low blood pressure. What increases the risk? Aging. The risk gets higher as you get older. ??? Having a personal or family history of chest pain, heart attack, stroke, or narrowing of the arteries in the legs, arms, head, or stomach (peripheral vascular disease). ??? Having taken chemotherapy or immune-suppressing medicines. ??? Being male. ??? Being overweight or obese. ??? Having any of these conditions: ? High blood pressure. ? High cholesterol. ? Diabetes. ??? Making lifestyle choices such as: ? Drinking too much alcohol. ? Not getting regular exercise. ? Smoking. What are the signs or symptoms? Chest pain. It may feel like: ? Crushing or squeezing. ? Tightness, pressure, fullness, or heaviness. ??? Pain in the arm, neck, jaw, back, or upper body. ??? Heartburn. ??? Upset stomach (indigestion). ??? Shortness of breath. ??? Feeling like you may vomit (nauseous). ??? Cold sweats. ??? Sudden light-headedness, dizziness, or passing out. ??? Feeling tired. How is this treated? A heart attack must be treated as soon as possible. Treatment may include: ??? Medicines to: ? Break up or dissolve blood clots. ? Thin your blood and help prevent blood clots. ? Treat blood pressure. ? Improve blood flow to the heart. ? Reduce pain. ? Reduce cholesterol. ??? Procedures to widen a blocked artery and keep it open. ??? Open heart surgery. ??? Making your heart strong again (cardiac rehabilitation) through exercise, education, and counseling. Follow these instructions at home: Medicines ??? Take dimm-tll-dswitai and prescription medicines only as told by your doctor. ??? Do not take these medicines unless your doctor says it is okay: ? NSAIDs, such as ibuprofen, naproxen, or celecoxib. ? Any vitamins or supplements. ? Hormone replacement therapy that has estrogen with or without progestin. ??? If you are taking blood thinners: ? Talk with your doctor before taking any medicines that have aspirin or NSAIDs, such as ibuprofen. ? Take medicines exactly as told. Take them at the same time each day. ? Avoid doing things that could hurt or bruise you. Take action to prevent falls. ? Wear an alert bracelet or carry a card that shows you are taking blood thinners. Lifestyle ??? Do not smoke or use any products that contain nicotine or tobacco. If you need help quitting, ask your doctor. ??? Avoid secondhand smoke. ??? Exercise regularly. Ask your doctor about a cardiac rehab program. ??? Eat heart-healthy foods. Your doctor will tell you what foods to eat. ??? Stay at a healthy weight. ??? Learn ways to lower your stress level. ??? Do not use illegal drugs. Alcohol use ??? Do not drink alcohol if: ? Your doctor tells you not to drink. ? You are , may be , or are planning to become . ??? If you drink alcohol: ? Limit how much you have to: ? 0?1 drink a day for women. ? 0?2 drinks a day for men. ? Know how much alcohol is in your drink. In the [place] one drink equals one 12 oz bottle of beer (355 mL), one 5 oz glass of wine (148 mL), or one 1? oz glass of hard liquor (44 mL). General instructions ??? Work with your doctor to treat other problems you may have, such as diabetes or high blood pressure. ??? Get screened for depression. Get treatment if needed. ??? Keep your vaccines up to date. Get the flu shot (influenza vaccine) every year. ??? Keep all follow-up visits. Contact a doctor if: ??? You feel very sad. ??? You have trouble doing your daily activities. ??? You get light-headed or dizzy. Get help right away if: ??? You have sudden, unexplained discomfort in your chest, arms, back, neck, jaw, or upper body. ??? You have shortness of breath. ??? You have sudden sweating or clammy skin. ??? You feel like you may vomit or you vomit. ??? You fe (more content not included)...[facility]03-27-2025 NoteNurse Consultation Note Reason for Visit patient came IO for [...] Dye (insomnia) calcium channel blockers (tachycardia) vancomycin (itching)Brian [facility]04-30-2024 Note [id number] 11-09-2023 [id number]02-17-2022 Evaluation note* Encounter Date Diagnosis Assessment Notes Treatment Notes Treatment Clinical Notes Aug, Non-healing wound of left lower extremity (ICD-10 - S81.802A) This is the first time I have seen this patient but I have been involved in her care over the last week and a half. Trying to arrange outpatient IV antibiotics was difficult but we ultimately did geta midline but before the IV antibiotics were [...] is not having any diarrhea fevers or chills.She has a wound VAC on the right [...] if it can be stopped at 2. Aug,eceiving intravenous antibiotic treatment at home (ICD-10 - Z79.2) [facility] Other Evaluation + Plan note Future Appointments Appointment Date:01/10/2022 04:00:00 PM Scheduled Provider:Zakiya DAVISON DO Location:[facility] Appointment Type:FM Open Future Scheduled Tests Radiology* XR Abdomen 1 View 09/21/21 [facility] Evaluation + Plan note Future Appointments Appointment Date:02/20/2022 03:30:00 PM Scheduled Provider: Location:[facility] Appointment Type:FM Medicare Wellness Subsequent Future Scheduled Tests Radiology* XR Abdomen 1 View 09/21/21 [facility] Evaluation + Plan note Future Appointments Appointment Date:10/09/2024 01:40:00 PM Scheduled Provider: Location:[facility] Appointment Type: Nurse Visit [facility] Evaluation + Plan note Future Appointments Appointment Date:10/09/2024 01:40:00 PM Scheduled Provider: Location:[facility] Appointment Type: Nurse Visit Diagnostic Tests Pending * Urine Culture 10/01/24 [facility] Evaluation noteNo Information[facility] [employer] Other Evaluation noteNo assessment information available [facility] Work Phone: [facility] Narrative - Reported* Type Description Date Surgical History hysterectomy Surgical Historypartial colon removal and reversal of colostomySurgical History appendectomy [facility] Other Hospital course Narrative No data available for this section [facility] Hospital Discharge instructions No data available for this section [facility] Progress note No data available for this section [facility] Summary Purpose Family History No Family History Records Found Relationship Condition Age at Onset Recorded Date/T gabo father Unknown History of strokeUnknownHypertensionUnknownfamily memberDeceasedUnknownNot SpecifiedHypertensionUnknownDeceasedUnknownMalignant neoplasmUnknown Relationship Condition Age at Onset Recorded Date/T gabo father Unknown History of strokeUnknownHypertensionUnknownfamily memberDeceasedUnknownmother HypertensionUnknownDeceasedUnknownMalignant neoplasmUnknown Advance Directives No Advanced Directives Records Found Advance Directive Response Recorded Date/ Time Advance Directives No March 2:54pm Hospital Course Note MR#: [id number] [facility] Pt. Name: Jarett Kebede Admitted: 07/31/2020 [...] and content) DATE CREATED AUTHOR 08/09/2020 [facility] DATE CREATED AUTHOR AUTHOR'S ORGANIZ ATION 11/28/2022 [facility] DATE CREATED AUTHOR AUTHOR'S ORGANIZ ATION 07/04/2024 [facility] DATE CREATED AUTHOR AUTHOR'S ORGANIZ ATION 10/04/2024 [facility] DATE CREATED AUTHOR AUTHOR'S ORGANIZ ATION 10/06/2024 [facility] DATE CREATED AUTHOR AUTHOR'S ORGANIZ ATION 10/17/2024 [facility] DATE CREATED AUTHOR AUTHOR'S ORGANIZ ATION 03/20/2025 [facility] DATE CREATED AUTHOR AUTHOR'S ORGANIZ ATION 03/29/2025 [facility] DATE CREATED AUTHOR AUTHOR'S ORGANIZ ATION 04/02/2025 [facility] Care Team (unrecognized sect ion and content) Team Status: Inactive Member Role Status Dates Shay Baldwin MD Primary Care Provider, Attending Prov ider Active Team Status: Active Member Role Status Dates Shay Baldwin MD Primary Care Provider Active Team Status: Inactive Member Role Status Dates Sunshine Jones DPM MS Attending Provider Active Start: November [...] BE BASED ON THE PRIMARY CLINICAL RECORDS. [employer] provides no warranty or guarantee of the accuracy or completeness of information in this document.
== END 2025-05-26 13:59 | disposition home or self-care (01) ==
LOC: WC 13:58
PROVIDERS: PCP Nurse Practitioner; Visit Provider Physician Assistant
DX: L97.812 Non-pressure chronic ulcer of other part of right lower leg with fat layer exposed (principal)
CPT/HCPCS: G0463; J3301